=== PATIENT | female | born 1990 | race Caucasian/White ===

== ENCOUNTER 2023-04-07 13:16 | Outpatient (CLI) | payer OTHER, MEDICAID, SELFPAY | END 2023-04-07 13:17 | disposition home or self-care (01) | LOC: NFLDREF 04-11 12:10 | PROVIDERS: PCP Family Medicine; Referring Provider Family Medicine; Visit Provider Obstetrics & Gynecology | DX: Z32.00 Encounter for pregnancy test, result unknown (principal) | CPT/HCPCS: 84702 ==

== ENCOUNTER 2023-04-11 10:51 | Outpatient (CLI) | payer OTHER, MEDICAID, SELFPAY ==
--- NOTE | 2023-04-11 11:00 | CRLHL7_ITS ---
For Patients: As a result of the Century Cures Act, medical imaging exams and procedure reports are released immediately into your electronic medical record. You may view this report before your referring provider. If you have questions, please contact your health care provider. INDICATION: First trimester scan, establish dates. COMPARISON: None. TECHNIQUE: Real-time marinelli-scale imaging of the pelvis was performed. FINDINGS: Sonographic imaging demonstrates a single living intrauterine gestation. The embryo demonstrates a regular cardiac rate measuring 178 beats per minute. The embryo`s crown-rump length measurement of 2.8 cm corresponds to a gestational age of 9 weeks 4 days with a sonographic due date of 11/10/2023. There is a normal-appearing yolk sac. There are no gross abnormalities noted within the embryo at this early state of development. The gestational sac has a normal appearance. There is a perigestational hemorrhage superior to the gestational sac measuring 2.2 x 0.3 x 2.0 cm and inferior to the gestational sac measuring 0.6 x 1.5 x 1.9 cm. The amount of fluid within the sac appears appropriate for gestational age. The cervix is closed. The myometrium appears normal. The ovaries are of normal size. There are no suspicious fluid collections noted in the cul-de-sac. IMPRESSION: Single living intrauterine measuring 9 weeks 4 days and sonographic due date 11/10/2023. There are 2 crescentic subchorionic hemorrhages measuring 2.2 x 0.3 x 2.0 cm superior to the gestational sac and 0.6 x 1.5 x 1.9 cm inferior to the gestational sac. Dictated by Zay Drake MD @ 04/11/2023 2:45:05 PM (Electronically Signed)
== END 2023-04-11 10:52 | disposition home or self-care (01) ==
LOC: US 10:54
PROVIDERS: PCP Family Medicine; Visit Provider Obstetrics & Gynecology
DX: Z34.91 Encounter for supervision of normal pregnancy, unspecified, first trimester (principal); O20.9 Hemorrhage in early pregnancy, unspecified; Z3A.09 9 weeks gestation of pregnancy
CPT/HCPCS: 76801; 82565; 82570; 84156; 84450; 84460; 84520; 86592; 86703; 86704; 86706; 86762; 86787; 86803; 86850; 86900; 86901; 87086; 87340

== ENCOUNTER 2023-04-14 11:54 | Outpatient (CLI) | payer OTHER, MEDICAID, SELFPAY | END 2023-04-14 11:55 | disposition home or self-care (01) | LOC: NFLDREF 04-18 16:03 | PROVIDERS: PCP Family Medicine; Referring Provider Family Medicine; Visit Provider Obstetrics & Gynecology | DX: R35.0 Frequency of micturition (principal) | CPT/HCPCS: 87086 ==

== ENCOUNTER 2023-04-16 06:30 | Outpatient (CLI) | payer OTHER, MEDICAID, SELFPAY | END 2023-04-16 06:31 | disposition home or self-care (01) | LOC: NFLDREF 04-18 19:28 | PROVIDERS: PCP Family Medicine; Referring Provider Family Medicine; Visit Provider Obstetrics & Gynecology | DX: Z34.91 Encounter for supervision of normal pregnancy, unspecified, first trimester (principal); Z87.59 Personal history of other complications of pregnancy, childbirth and the puerperium | CPT/HCPCS: 82570; 84156 ==

== ENCOUNTER 2023-05-29 08:07 | Outpatient (CLI) | payer BC, MEDICAID, SELFPAY ==
--- NOTE | 2023-05-29 08:15 | CRLHL7_ITS ---
For Patients: As a result of the Century Cures Act, medical imaging exams and procedure reports are released immediately into your electronic medical record. You may view this report before your referring provider. If you have questions, please contact your health care provider. CLINICAL HISTORY: Proteinuria COMPARISON: none TECHNIQUE: Jones scale and color Doppler images were acquired of the kidneys and urinary bladder. FINDINGS: Sonographic images reveal a symmetric appearance of the kidneys. There is no evidence of hydronephrosis, mass or calculus. The right kidney measures 11.7cm in length and the left kidney measures 10.0cm in length. The renal cortex appears of normal thickness. Normal color Doppler flow to both kidneys. The urinary bladder appears normal. There is no evidence of bladder calculi or diverticula. IMPRESSION: Normal renal ultrasound. Dictated by Zay Drake MD @ 05/29/2023 11:04:24 AM (Electronically Signed)
== END 2023-05-29 08:08 | disposition home or self-care (01) ==
LOC: US 08:09
PROVIDERS: PCP Family Medicine; Visit Provider Internal Medicine Nephrology
DX: R80.9 Proteinuria, unspecified (principal)
CPT/HCPCS: 76775

== ENCOUNTER 2023-06-09 08:00 | Outpatient (CLI) | payer BC, SELFPAY ==
--- OUTSIDE RECORDS SUMMARY | 2023-06-13 10:45 | XMS_ITS | Clinical Summary ---
Author Name Unknown Organization [facility] Address [place], [place] [address] Care Team Providers Care Acrobatic Rigger Name Role Phone Jyoti Cope DO Primary Care Provider [phone] Allergies Active Allergy Reactions Criticality Noted Date Comments Sulfa (Sulfonamide Antibiotics) *Unknown Unknown 06/27 Medications Medication Sig Dispensed Refills Start Date End Date Status Fphkusbm-Ag-Vmj-Fe-FA tab tablet Take 1 Tablet by mouth once daily. 0 09/04/2022 Active Active Problems Problem Noted Date Diagnosed Date PCOS (polycystic ovarian syndrome) 12/25/2019 Immunizations Name Administration Dates Next Due DTP 05/30/1992,03/21/1992,01/18/1992 DTaP 11/01/1996, 3,05/30/1992,03/21/1992,01/17 HIB PRP-T (ActHIB,Hiberix) 02/19/1993,05/30/1992 ,03/21/1992,01/18/1992 HPV 9 (Gardasil 9) 11/22/2014 Hepatitis B (Peds) 02/19/1993,10/10/1992, 993 Hepatitis B, Unspecified 02/19/1993,10/10/1992,0 08/29/1992 Inactivated Polio Vaccine 11/01/1996,05/08/1993, 03/21/1992,01/18/1992 MMR 02/19/1993 Oral Polio Vaccine 11/01/1996,05/08/1993, 992,01/18/1992 Tdap 07/02/2021,11/22/2014 Tdap, Unspecified 11/01/1996,05/08/1993 Varicella Vaccine 11/12/1999 Family History Medical History Relation Name Comments Parkinsonism Father Alzheimer's disease Maternal Grandfather Alzheimer's disease Maternal Grandmother Alcoholism Paternal Grandfather Relation Name Status Comments Father Alive Maternal Grandfather Maternal Grandmother Mother Alive Paternal Grandfather brain b leed Paternal Grandmother Alive Social History Tobacco Use Types Packs/Day Years Used Date Smoking Tobacco: Former Cigarettes 0.3 1.8 0 11/23/2016 - 08/31/2018 Smokeless Tobacco: Never Tobacco Cessation:Counseling Given: Not Answered Alcohol Use Standard Drinks/Week Comments Yes 0 (1 standard drink = 0.6 oz pur e alcohol) occ PHQ-2 Answer Date Recorded PHQ-2 TOTAL SCORE 0 04/03/2022 Social Connections Answer Date Recorded Frequency of Communication with Friends and Fami ly Not on file 01/07/2023 Financial Resource Strain Answer Date R ecorded Difficulty of Paying Living Expenses 3 01/02/2022 Difficulty of Paying Living Expenses Not on file 01/02/2022 Food Insecurity Answer Date Recorded Worried About Running Out of Food in the Last Ye ar 1 01/02/2022 Transportation Needs Answer Date Record ed Lack of Transportation (Medical) 1 01/02/2022 Housing Stability Answer Date Recorded Unable to Pay for Housing in the Last Year 1 01/02/2022 Sex and Gender Information Value Date Recorded Sex Assigned at Female 01/02/2022 10:36 PM CDT Gender Identity Female 01/02/2022 10:36 PM CDT Sexual Orientation Straight 01/02/2022 10 :36 PM CDT Obstetrics History Para Term AB IAB SAB Ectopic Multiple Livin g Live Births 1 Date Outcome GA Total Labor Labor/2nd/3rd Weight Sex Delivery Anes PTL Renetta A1 A5 Name Cl in Last Filed Vital Signs Vital Sign Reading Time Taken Comments Blood Pressure 131/83 01/08/2023 9:48 AM CDT Pulse 85 01/08/2023 9:48 AM CDT Temperature 36.9 ??C (98.4 ??F) 12/16/2022 8:29 AM CD T Respiratory Rate 20 12/01/2018 12:03 PM CDT Oxygen Saturation 100% 01/08/2023 9:48 AM CDT Inhaled Oxygen Concentration - - Weight 85 kg (187 lb 8 oz) 01/08/2023 9:48 AM CD T Height 170 cm (5' 6.93) 12/15/2019 11:09 AM CDT Body Mass Index 29.43 12/15/2019 11:09 AM CDT Plan of Treatment Health Maintenance Due Date Last Done Comments COVID-19 vaccine series (#1) 05/17/1992 HIV for age 15-65 11/15/2006 Hepatitis C screening for age 18-79 11/15/2009 BMI (ht and wt on same day) for age 18+ 12/14/2020 12/15/2019, 03/12/2019, 12/01/2018, Additional history exists Pap test for age 21-65 03/12/2022 03/12/2019 Influenza for age 9-49 01/24/2023 Depression screening for age 12+ 04/03/2023 04/03/2022, 11/17/2019, 03/12/2019, Additional history exists Tetanus booster 07/02/2031 07/02/2021, 10/26, 11/01/1996, Additional history exists Tdap Completed 07/02/2021, 10/26, 11/01/1996, Additional history exists Pneumococcal series for age 6-64 Aged Out No longer eligible based on patient's age to complete this topic Care Teams Acrobatic Rigger Relationship Specialty Start Date End Date Jyoti Cope DO [address] [place] [address] PCP - General Family Practice 01/08/23
== END 2023-06-09 08:01 | disposition home or self-care (01) ==
LOC: NFLDREF 06-13 10:42
PROVIDERS: PCP Family Medicine; Referring Provider Family Medicine; Visit Provider Internal Medicine Nephrology
DX: Z34.82 Encounter for supervision of other normal pregnancy, second trimester (principal); R80.9 Proteinuria, unspecified
CPT/HCPCS: 82570; 84156

== ENCOUNTER 2023-06-18 08:12 | Outpatient (CLI) | payer BC, MEDICAID, SELFPAY ==
--- NOTE | 2023-06-18 08:15 | CRLHL7_ITS ---
For Patients: As a result of the Century Cures Act, medical imaging exams and procedure reports are released immediately into your electronic medical record. You may view this report before your referring provider. If you have questions, please contact your health care provider. INDICATION: 2nd trimester anatomical survey. TECHNIQUE: Ultrasound OB pelvis transabdominal. Real-time marinelli-scale imaging of the fetus was performed as well as color Doppler and spectral Doppler analysis of the umbilical artery. COMPARISON: Obstetric ultrasound on 04/11/2023 FINDINGS: Sonographic imaging demonstrates a single living intrauterine gestation. Fetus demonstrates a regular cardiac rate of 165 beats per minute. Fetus has a james breech orientation. The placenta lies anterior without evidence of placenta previa. Amniotic fluid volume appears within normal limits with single deepest pocket measurement of 2.7 centimeters. Biometry: Biparietal diameter: 3.9 centimeters consistent with 17 weeks and 6 days. Head circumference: 15.4 centimeters consistent with 18 weeks and 3 days. Abdominal circumference: 13.2 centimeters consistent with 18 weeks and 5 days. Femoral length: 2.8 centimeters consistent with 18 weeks and 3 days. The composite ultrasound gestational age is calculated at 18 weeks and 4 days is with an estimated sonographic due date of 11/15/2023. The weight is estimated at 246 grams, the <3rd percentile. Anatomical Survey: 4 chamber heart: Visualized. Stomach: Visualized. Kidneys: Visualized. Bladder: Visualized. Spine: Visualized. 4 extremities: Visualized. Cord insertion: Visualized. 3V cord: Visualized. Face: Visualized. Nose: Visualized. Lips: Visualized. Cerebellum: Visualized. Cisterna Magna: Visualized. Lateral ventricles: Visualized. Gender: Male Umbilical artery S/D ratio is 2.3 (normal). The cervix is closed and measures 6.2 centimeters in length. There is a suspected subserosal fibroid seen in the anterior mid uterus measuring approximately 1.4 centimeters. IMPRESSION: 1. Single viable intrauterine . 2. No intrinsic abnormalities noted on anatomic survey. 3. Estimated size of less than 3rd percentile, which is suggestive of growth restriction. Dictated by Jona Rothman MD @ 06/18/2023 10:05:35 AM (Electronically Signed)
== END 2023-06-18 08:13 | disposition home or self-care (01) ==
LOC: US 08:13
PROVIDERS: PCP Family Medicine; Visit Provider Obstetrics & Gynecology
DX: Z34.92 Encounter for supervision of normal pregnancy, unspecified, second trimester (principal); Z3A.18 18 weeks gestation of pregnancy
CPT/HCPCS: 76805; 76820

== ENCOUNTER 2023-07-15 16:09 | Inpatient (IN) | payer BC, MEDICAID, SELFPAY ==
--- OUTSIDE RECORDS SUMMARY | 2023-07-15 16:01 | XMS_ITS | Encounter Summary ---
Author Name Unknown Organization [facility] Address [address] [place] [id number] Care Team Providers Care Frame Builder Name Role Phone Lamine Pizarro MD Unavailable [phone] Raven Laguna MD Primary Care Provider [phone] Encounter Details Date Type Department Care Team (Latest Contact Info) Description 07/10/2023 Travel Social History Tobacco Use Types Packs/Day Years Used Date Smoking Tobacco: Never Assessed Adolescent Education Answer Date Record ed Getting School Help Needed Not on file 04/22 Estimated Date of Delivery Comme nts Yes 11/10/2023 Based on Ultraso und, RODGER changed on 06/24/[address] Odonnell d/t irregular menstural cycles Sex and Gender Information Value Date Recorded Sex Assigned at Female 06/19/2023 11:52 AM AQUATIC PHYSIOTHERAPIST Gender Identity Female 06/19/2023 11:52 AM AQUATIC PHYSIOTHERAPIST Sexual Orientation Straight 06/19/2023 11 :52 AM AQUATIC PHYSIOTHERAPIST documented as of this encounter Plan of Treatment Not on file documented as of this encounter Visit Diagnoses Not on filedocumented in this encounter Care Teams Frame Builder Relationship Specialty Start Date End Date Raven Laguna MD [facility] [address] [place] [address] PCP - General instrument engineer 04/23/23 Lamine Pizarro MD [address] [place] [address] Nephrology 04/23/23 documented as of this encounter
--- OUTSIDE RECORDS SUMMARY | 2023-07-15 16:01 | XMS_ITS | Clinical Summary ---
Author Name Unknown Organization [facility] Address [address] [place] [address]. [place] [address] Care Team Providers Care Public Opinion Survey Taker Name Role Phone Lamine Pizarro MD Unavailable [phone] Raven Laguna MD Primary Care Provider [phone] Encounters Date Type Department Care Team Description 07/15/2023 10:00 AM RETANNER Office Visit [facility] [place] [facility] [place] [address] [facility] [address] [place] [phone] Melo Odonnell MD demise, greater than 22 weeks, antepartum, single or unspecified fetus (Primary Dx) 07/15/2023 9:30 AM RETANNER Hospital Encounter [facility] [place] [facility] Medicine [place] [address] [place] [phone] Melo Odonnell MD Encounter for follow-up ultrasound of anatomy; growth restriction antepartum 07/15/2023 Travel 07/10/2023 Travel 06/24/2023 2:00 PM RETANNER Office Visit [facility] [place] [facility] Medicine [facility] [address] [place] [phone] Esme Stanford MD Jones, Cresta Wedel, MD growth restriction antepartum (Primary Dx); Encounter for follow-up ultrasound of anatomy 06/24/2023 1:30 PM RETANNER Office Visit [facility] [place] [facility] Medicine [facility] [address] [facility] [address] [place] [phone] Melo Odonnell MD Daykin, Emily C, GC Abnormal finding on ultrasound (Primary Dx) 06/24/2023 1:26 PM RETANNER - 06/24/2023 11:59 PM RETANNER Hospital Encounter [facility] Maternal Medicine [facility] [address] [facility] [address] [place] [phone] Esme Stanford MD Jones, Cresta Wedel, MD related condition, antepartum Discharge Disposition: Home or Self Care 06/24/2023 Orders Only [facility] Maternal Medicine [facility] [address] [facility] [address] [place] [address] Sobeida Donovan GC Abnormal finding on ultrasound (Primary Dx) 06/24/2023 Travel 06/20/2023 PRE VISIT [facility] [place] [facility] Medicine [place] [address] [facility] [address] [place] [phone] Silvia Narvaez RN Ultrasound ([id number]) 06/19/2023 Travel 06/19/2023 Transcribe Orders [facility] [place] [facility] Medicine [address] [place] [phone] Esme Stanford MD related condition, antepartum (Primary Dx) 06/18/2023 Medical Correspondence [facility] [address] [place] [address] Scan, Non-Provider 06/12/2023 PRE VISIT [facility] [address] [phone] Lamine Pizarro MD *-*INCOMING RECORDS*-* 04/22/2023 Transcribe Orders [facility] EXTERNAL DATA DEPARTMENT Raven Laguna MD Proteinuria (Primary Dx); Personal history of other complications of , childbirth and the puerperium from Last 3 Months Social History Tobacco Use Types Packs/Day Years Used Date Smoking Tobacco: Never Assessed Tobacco Cessation:Counseling Given: Not Answered Adolescent Education Answer Date Record ed Getting School Help Needed Not on file 04/22 Estimated Date of Delivery Comme nts Yes 11/10/2023 Based on Ultraso und, RODGER changed on 06/24/[address] Odonnell d/t irregular menstural cycles Sex and Gender Information Value Date Recorded Sex Assigned at Female 06/19/2023 11:52 AM RETANNER Gender Identity Female 06/19/2023 11:52 AM RETANNER Sexual Orientation Straight 06/19/2023 11 :52 AM RETANNER Last Filed Vital Signs Vital Sign Reading Time Taken Comments Blood Pressure 131/86 06/24/2023 2:51 PM RETANNER Pulse 106 06/24/2023 2:51 PM RETANNER Temperature - - Respiratory Rate - - Oxygen Saturation 100% 06/24/2023 2:51 PM RETANNER Inhaled Oxygen Concentration - - Weight - - Height - - Body Mass Index - - Plan of Treatment Health Maintenance Due Date Last Done Comments ADVANCE CARE PLANNING 1990 ANNUAL REVIEW OF HM ORDERS 1990 YEARLY PREVENTIVE VISIT 1990 COVID-19 Vaccine (#1) 05/17/1992 HIV SCREENING 11/15/2006 HEPATITIS C SCREENING 11/15/2009 PAP 11/15/2012 HPV IMMUNIZATION (2 - 3-dose series) 12/20/2014 11/22/2014 INFLUENZA VACCINE (#1) 2023 MATERNAL SCREENING DISCUSSION 04/14/2023 PHQ-2 (once per calendar year) 2023 OBGCT (OB) 07/21/2023 DTAP/TDAP/TD IMMUNIZATION (8 - Td or Tdap) 07/02/2031 07/02/2021, 11/22/2014, 11/01/1996, Additional history exists HEPATITIS B IMMUNIZATION Completed 993, 02/19/1993, 10/10/1992, Additional history exists IPV IMMUNIZATION Completed 11/01/1996, 01/1997, 05/08/1993, Additional history exists MENINGITIS IMMUNIZATION Aged Out No l onger eligible based on patient's age to complete this topic Pneumococcal Vaccine: Pediatrics (0 to 5 Years) and At-Risk Patients (6 to 64 Years) Aged Out No longer eligible based on patient's age to complete this topic RSV MONOCLONAL ANTIBODY Aged Out No l onger eligible based on patient's age to complete this topic RSV VACCINE ( & 60+) (No Doses Required) Completed Procedures Procedure Name Priority Date/Time Associated Diagnosis Comments [facility] US COMPREHENSIVE SINGLE F/U Routine 07/15/2023 10:14 AM RETANNER Encounter for follow-up ultrasound of anatomy growth restriction antepartum [facility] US COMPREHENSIVE SINGLE Routine 06/24/2023 2:22 PM RETANNER related condition, antepartum from Last 3 Months Results * [facility] US Comprehensive Single F/U (07/15/2023 10:14 AM RETANNER) Anatomical Region Laterality Modality Ultrasound 07/15/2023 9:45 AM RETANNER Impressions 07/15/2023 10:31 AM RETANNER IMPRESSION ----- 1. Morales intrauterine at 23w 1d gestational age here with new finding of demise 2. Growth parameters and estimated weight were consistent with 17 weeks gestation. 3. Transverse lie with normal amniotic fluid volume present. 4. Anterior placenta. 5. No evidence of soft tissue edema but the skull bones are slightly overlapping, likely associated with the demise. Unable to determine timing of loss based on US evaluation. Narrative 07/15/2023 10:31 AM RETANNER ?Comp Follow Up ----- Pat. Name: ETIENNE CAMARILLO ? Study Date: ??07/15/2023 9:45am Pat. NO: ??[id number] ?Referring ??MD: ESME RAMIREZ Site: [facility] ? [facility] Cooper: Lovely Cadetvis, [facility] : ??1990 ?Age: ?? 32 ----- INDICATION ----- Early Onset FGR on previous u/s DEMISE METHOD ----- Transabdominal ultrasound examination. View: Sufficient ----- Morales . Number of fetuses: 1 DATING ----- ? Date ?Details ?Gest. age ?RODGER LMP ?01/27/2023 ?Cycle: irregular, long cycles ? 24 w + 1 d ? 11/03/2023 Prior assessment ? 04/11/2023 ? GA: 9 w + 4 d ? 23 w + 1 d ? 11/10/2023 U/S ? 07/15/2023 ? based upon AC, BPD, Femur, HC ?17 w + 0 d ? 12/23/2023 Assigned dating ?Dating performed on 06/24/2023, based on the prior assessment (on 04/11/2023) ? 23 w + 1 d ? 11/10/2023 GENERAL EVALUATION ----- Cardiac activity absent. movements not visualized. Presentation transverse. Placenta Anterior. Umbilical cord previously studied. Amniotic fluid normal MVP. BIOMETRY ----- Main Biometry: BPD ?31.6 ?mm ? 15w 6d ?Hadlock OFD ?53.7 ?mm ? 17w 6d ?Nicolaides ?139.4 ?mm ?17w 2d ?Hadlock AC ?94.5 ?mm ? 15w 4d ? <1% ?Hadlock Femur ?29.9 ? mm ?19w 2d ?Hadlock Humerus ?27.3 ?mm ? 18w 5d ?Stephany Weight Calculation: EFW ? 190 ? g ? <1% ?Hadlock EFW (lb,oz) ? 0 lb 7 ?oz EFW by ?Krei ([id number]) ANATOMY ----- Gender: uncertain. MATERNAL STRUCTURES ----- Cervix ?Visualized ? Appearance: Appears Closed ? Approach - Transabdominal Right Ovary ?Not examined Left Ovary ?Not examined RECOMMENDATION ----- Findings reviewed with Etienne and her partner - this was a possibility but not anticipated by them or by our team. We have notified the primary OB team of Dr. Ray Garcia in [place]. We very briefly reviewed options for delivery including induction delivery locally vs. surgical delivery, which I am not sure if she would need to be referred to our [facility] [employer] colleagues in [place] for that procedure. They are leaning towards a timely induction delivery locally in [place] at this time. Dr. Ramirez is aware and will call the couple this afternoon to discuss next steps. We are willing to assist with a surgical referral as needed; patient is aware that would likely take a couple of days to arrange. I do recommend a pathologic examination of the fetus and placenta and made this recommendation to the patient as well. If this can include TORCH (transplacental infection) evaluation as well, this would be recommended - it would need to be coordinated with the local pathology team. I recommend maternal testing for antiphospholipid antibodies - ijyy-9-nncqomblajal antibodies, lupus anticoagulation and anticardiolipin antibodies. We are happy to see her back after her loss for review of pathology and lab results, to help guide care for any future pregnancies. Procedure Note Melo Odonnell MD - 07/15/2023 Comp Follow Up ----- Pat. Name: ETIENNE CAMARILLO Study Date: 07/15/2023 9:45am Pat. NO: [id number] Referring MD: ESME RAMIREZ Site: [facility]: Lovely Pen[address]za RD : 1990 Age: 32 ----- INDICATION ----- Early Onset FGR on previous u/s DEMISE METHOD ----- Transabdominal ultrasound examination. View: Sufficient ----- Morales . Number of fetuses: 1 DATING ----- DateDetailsGest. age RODGER LMP 01/27/2023ycle: irregular, long [id number] w + 1 d 11/03/2023 Prior assessment 04/11/2023 GA: 9 w +4 d23 w + 1 d 11/10/2023 U/S 07/15/2023ased upon AC, BPD, Femur, HC17 w + 0 d 12/23/2023 Assigned dating Dating performed on 06/24/2023, based onthe prior assessment (on 04/11/2023) 23 w + 1 11/10/2023 GENERAL EVALUATION ----- Cardiac activity absent. movements not visualized. Presentation transverse. Placenta Anterior. Umbilical cord previously studied. Amniotic fluid normal MVP. BIOMETRY ----- Main Biometry: BPD 31.6 mm15w 6d Hadlock OFD 53.7 mm17w 6d Nicolaides HC 139.4 mm17w 2d Hadlock AC 94.5 mm15w 4d <1% Hadlock Femur 29.9 mm19w 2d Hadlock Humerus 27.3 mm18w 5d Stephany Weight Calculation: EFW 190 g<1% Hadlock EFW (lb,oz) 0 lb 7 oz EFW by Hadlock ([id number]) ANATOMY ----- Gender: uncertain. MATERNAL STRUCTURES ----- Cervix Visualized Appearance: Appears Closed Approach - Transabdominal Right Ovary Not examined Left Ovary Not examined RECOMMENDATION ----- Findings reviewed with Etienne and her partner - this was a possibilitybut not anticipated by them or by our team. We have notified the primary OB team of Dr. Ray Garcia in [place].We very briefly reviewed options for delivery including induction deliverylocally vs. surgical delivery, which I am not sure if she would need to be referred to ourOb/Pedodontist colleagues in [place] for that procedure. They are leaningtowards a timely induction delivery locally in [place] at this time. Dr. Ramirez is awareand will call the couple this afternoon to discuss next steps. We arewilling to assist with a surgical referral as needed; patient is aware that would likely take a couple ofdays to arrange. I do recommend a pathologic examination of the fetus and placenta and madethis recommendation to the patient as well. If this can include TORCH(transplacental infection) evaluation as well, this would be recommended - it would needto be coordinated with the local pathology team. I recommend maternal testing for antiphospholipid antibodies -qyki-1-omsavbsargmv antibodies, lupus anticoagulation and anticardiolipinantibodies. We are happy to see her back after her loss for review of pathology andlab results, to help guide care for any future pregnancies. IMPRESSION ----- 1. Morales intrauterine at 23w 1d gestational age here withnew finding of demise 2. Growth parameters and estimated weight were consistent with 17weeks gestation. 3. Transverse lie with normal amniotic fluid volume present. 4. Anterior placenta. 5. No evidence of soft tissue edema but the skull bones areslightly overlapping, likely associated with the demise. Unable todetermine timing of loss based on US evaluation. Melo Odonnell MD [facility] US ORDERAB LES * [facility] US Comprehensive Single (06/24/2023 2:22 PM RETANNER) Anatomical Region Laterality Modality Ultrasound 06/24/2023 1:27 PM RETANNER Impressions 06/24/2023 4:31 PM RETANNER IMPRESSION ----- 1. Morales intrauterine at 20w 1d gestational age by 9 week 4 day US (1 week different from LMP with reported irregular long cycles) here for evaluation of anatomy and growth. 2. No anomalies commonly detected by ultrasound or soft markers of aneuploidy were identified in the detailed anatomic survey within the limits of ultrasound, however some views were suboptimal, as described above. 3. Growth parameters and estimated weight were consistent with early onset growth restriction, and EFW 3%. 4. The amniotic fluid volume appeared normal with an MVP of > 2 cm. 5. On transabdominal imaging the cervix appears long and closed. 6. Umbilical artery Doppler flow was within normal limits. Narrative 06/24/2023 4:31 PM RETANNER ?Comprehensive ----- Pat. Name: ETIENNE CAMARILLO ? Study Date: ??06/24/2023 1:27pm Pat. NO: ??[id number] ?Referring ??: ESME RAMIREZ Site: ??[facility] ? [facility]: Soledad Alejandro RDMS : ??1990 ?Age: ?? 32 ----- INDICATION ----- Early Onset FGR - RODGER changed today. Chronic Hypertension - no medications. History of Preeclampsia with delivery. METHOD ----- Transabdominal ultrasound examination. View: Sufficient ----- [place]ales . Number of fetuses: 1 DATING ----- ? Date ?Details ?Gest. age ?RODGER LMP ?01/27/2023 ?Cycle: irregular, long cycles ? 21 w + 1 d ? 11/03/2023 Prior assessment ? 04/11/2023 ? GA: 9 w + 4 d ? 20 w + 1 d ? 11/10/2023 U/S ? 06/24/2023 ? based upon AC, BPD, Femur, HC ?18 w + 3 d ? 11/22/2023 Assigned dating ?Dating performed on 06/24/2023, based on the prior assessment (on 04/11/2023) ? 20 w + 1 d ? 11/10/2023 GENERAL EVALUATION ----- Cardiac activity present. FHR 159 bpm. movements present. Presentation cephalic. Placenta anterior, no previa > 2 cm from internal os . Umbilical cord Cord vessels: 3 vessel cord. Insertion site: normal . Amniotic fluid Amount of AF: Low. MVP 2.4 cm. BIOMETRY ----- Main Biometry: BPD ?38.4 ?mm ? 17w 5d ?Hadlock OFD ?55.4 ?mm ? 18w 2d ?Nicolaides HC ?150.7 ?mm ?18w 1d ?Hadlock Cerebellum tr ?19.6 ? mm ?18w 6d ?Nicolaides AC ?132.3 ?mm ?18w 5d ?8% ?Hadlock Femur ?29.4 ? mm ?19w 0d ?Hadlock Humerus ?28.4 ?mm ? 19w 1d ?Stephany Weight Calculation: EFW ? 257 ? g ? 3% ?Hadlock EFW (lb,oz) ? 0 lb 9 ?oz EFW by ?Hadlock ([id number]) Head / Face / Neck Biometry: Assistant Public Defender ? 4.5 ? mm CM ?4.1 ? mm Nasal bone ? 5.9 ? mm Extremities / Bony Struc Biometry: Rt Humerus ?28.4 ? mm ?19w 1d ?Stephany Rt Radius ? 24.0 ? mm ?14% ?Becker Rt Ulna ?24.4 ?mm ? 5% ?Becker Lt Humerus ?25.5 ?mm ? 18w 0d ?Stephany Lt Radius ? 22.2 ?mm ? 5% ?Becker Lt Ulna ? 25.5 ? mm ?11% ?Becker Rt Femur ? 29.4 ?mm ? 19w 0d ? Hadlock Rt Tibia ?24.9 ?mm ? 20% ?Becker Rt Fibula ?25.2 ?mm ? 22% ?Becker Lt Femur ?27.9 ?mm ? 18w 4d ?Hadlock Lt Tibia ?25.5 ?mm ? 26% ? Becker Lt Fibula ?24.9 ?mm ? 20% ? Becker ANATOMY ----- The following structures appear abnormal: Abdomen ? Bowel. Small bowel: echogenic bowel. The following structures appear normal: Head / Neck ? Cranium. Head size. Head shape. Lateral ventricles. Choroid plexus. Midline falx. Cavum septi pellucidi. Cerebellum. Cisterna magna. ? Parenchyma. Thalami. Vermis. ? Neck. Face ? Profile. Nose. Maxilla. Mandible. Orbits. Lens. Heart / Thorax ?Situs. Bicaval view. Superior vena cava. Inferior vena cava. 3-vessel view. 0-tkxkfi-amdpkkr view. Cardiac position. Cardiac size. Cardiac ? rhythm. ? Right lung. Left lung. Abdomen ? Stomach. Kidneys. Bladder. Liver. Spine ?Cervical spine. Thoracic spine. Lumbar spine. Sacral spine. Extremities / Skeleton ?Right arm. Left arm. Right leg. Right foot. Left leg. Left foot. The following structures could not be adequately visualized: Heart / Thorax ?4-chamber view. RVOT view. LVOT view. ? Diaphragm. Abdomen ? Abdominal wall. Cord insertion. Extremities / Skeleton ?Right hand. Left hand. The following structures could not be visualized: Face ? Lips. Heart / Thorax ?Aortic arch view. Ductal arch view. Abdomen ? Genitals. Gender: uncertain, genitalia not seen today . DOPPLER ----- Umbilical Artery: PI ?0.77 ?<1% ? Audra HR ?162 ? bpm MATERNAL STRUCTURES ----- Cervix ?Visualized ? Appearance: Appears Closed ? Approach - Transabdominal: Cervical length 60.5 mm Right Ovary ?Visualized Left Ovary ?Visualized RECOMMENDATION ----- Thank-you for referring your patient for ultrasound assessment. I discussed the findings on today's ultrasound with the patient and her partner. I reviewed the limitations of ultrasound both in detecting aneuploidy and structural abnormalities. Ultrasound, when views completed, can routinely detect 80-90% of structural abnormalities. We discussed our recommendation to utilize her US dating after discussion her long irregular menstrual cycles with her today. Recommended RODGER of 11/10/2023 was used today The findings on today's ultrasound are consistent with early onset growth restriction (FGR). We reviewed that we consider a to be affected by FGR when the overall EFW is <10th% or if the abdominal circumference (AC) is < 10th% as they have been found to be equally predictive of SGA. We discussed the potential etiologies of FGR including incorrect dating, constitutional, infectious etiologies (specifically CMV), genetic and structural abnormalities as well as placental and umbilical cord abnormalities. Her dating was reviewed and a change was recommended today. She has not had genetic screening, which was reviewed and recommended today - she opted to think about it and will discuss further with our genetic counseling team at her follow up [facility] visit. She has chronic HTN not on medication and takes her BP every day - today it is 131/86 but was lower at home. She has mild chronic kidney disease manifested by proteinuria in early (PCR 0.8 in March 2023) and is followed by nephrology -they plan to start her on BP medication if her BP increases and she is in touch with them regularly. There is a strong family history of preeclampsia. She denies experiencing any viral symptoms this . We reviewed the possible/recommended work up for FGR. She will consider genetic screening at her next visit here but is not interested in amniocentesis. CMV serologies are not recommended in the absence of risk factors/ultrasound findings but CMV PCR could be sent if amniocentesis is pursued. Additionally, if a patient delivers at <34 weeks for placental insufficiency, including FGR, testing for antiphospholipid antibody syndrome is recommended with beta 2 glycoprotein IgG & IgM, cardiolipin antibody IgG & IgM and lupus anticoagulant. Lastly, we reviewed that regardless of the etiology of FGR, we recommend additional monitoring due to the increased risk for stillbirth and that the ultimate goal of management rests on balancing the risk of stillbirth with the risks of prematurity. The recommended surveillance and management of pregnancies complicated by FGR includes serial assessment of growth (every 3 weeks) in addition to weekly UA Dopplers and surveillance. Timing of delivery will depend on Doppler findings, amniotic fluid, monitoring, and interval growth; we will make specific recommendations as the progresses. We reviewed kick counts and calling guidelines. Given her early gestational age, we plan for her to return to [facility] in 3 weeks, at which time we will initiate CTG if FGR is persistent. She will continue to watch her BP, and any new symptoms, very closely. They are planning on driving to [place] to see family next week, and she has a plan to stay in communication with her primary medical teams while she is there. She will check her BP daily there, and has information to go to a local hospital if needed. We discussed hydration and frequent stops for ambulation along the drive. Follow-up is scheduled here in three weeks as recommended above. Return to primary provider for continued care. If you have questions regarding today's evaluation or if we can be of further service, please contact the [facility]. anomalies may be present but not detected I spent a total of 45 minutes on the date of this encounter including preparing to see the patient (reviewing medical records/tests), counseling and discussing the plan of care, documenting the visit in the electronic medical record, and communicating with other health chronic care nurse and/or care coordination. Procedure Note Melo Odonnell MD - 06/24/2023 Comprehensive ----- Pat. Name: ETIENNE CAMARILLO Study Date: 06/24/2023 1:27pm Pat. NO: [id number] Referring MD: ESME RAMIREZ Site: [facility]: Soledad Alejandro RDMS : 1990 Age: 32 ----- INDICATION ----- Early Onset FGR - RODGER changed today. Chronic Hypertension - no medications. History of Preeclampsia with delivery. METHOD ----- Transabdominal ultrasound examination. View: Sufficient ----- Morales . Number of fetuses: 1 DATING ----- DateDetailsGest. age RODGER LMP 01/27/2023ycle: irregular, long [id number] w + 1 d 11/03/2023 Prior assessment 04/11/2023 GA: 9 w +4 d20 w + 1 d 11/10/2023 U/S 06/24/2023ased upon AC, BPD, Femur, HC18 w + 3 d 11/22/2023 Assigned dating Dating performed on 06/24/2023, based onthe prior assessment (on 04/11/2023) 20 w + 1 11/10/2023 GENERAL EVALUATION ----- Cardiac activity present. FHR 159 bpm. movements present. Presentation cephalic. Placenta anterior, no previa > 2 cm from internal os . Umbilical cord Cord vessels: 3 vessel cord. Insertion site: normal . Amniotic fluid Amount of AF: Low. MVP 2.4 cm. BIOMETRY ----- Main Biometry: BPD 38.4 mm17w 5d Hadlock OFD 55.4 mm18w 2d Nicolaides HC 150.7 mm18w 1d Hadlock Cerebellum tr 19.6 mm18w 6d Nicolaides AC 132.3 mm18w 5d 8% Hadlock Femur 29.4 mm19w 0d Hadlock Humerus 28.4 mm19w 1d Stephany Weight Calculation: EFW 257 g3% Hadlock EFW (lb,oz) 0 lb 9 oz EFW by Hadlock ([id number]) Head / Face / Neck Biometry: Assistant Public Defender 4.5 mm CM 4.1 mm Nasal bone 5.9 mm Extremities / Bony Struc Biometry: Rt Humerus 28.4 mm19w 1d Stephany Rt Radius 24.0 mm14% Becker Rt Ulna 24.4 mm5% Becker Lt Humerus 25.5 mm18w 0d Stephany Lt Radius 22.2 mm5% Becker Lt Ulna 25.5 mm11% Becker Rt Femur 29.4 mm19w 0d Hadlock Rt Tibia 24.9 mm20% Becker Rt Fibula 25.2 mm22% Becker Lt Femur 27.9 mm18w 4d Hadlock Lt Tibia 25.5 mm26% Becker Lt Fibula 24.9 mm20% Becker ANATOMY ----- The following structures appear abnormal: Abdomen Bowel. Small bowel: echogenic bowel. The following structures appear normal: Head / Neck Cranium. Head size. Head shape.Lateral ventricles. Choroid plexus. Midline falx. Cavum septi pellucidi.Cerebellum. Cisterna magna. Parenchyma. Thalami. Vermis. Neck. Face Profile. Nose. Maxilla. Mandible.Orbits. Lens. Heart / Thorax Situs. Bicaval view. Superior venacava. Inferior vena cava. 3- vessel view. 7-tuvrpx-dveiyue view. Cardiacposition. Cardiac size. Cardiac rhythm. Right lung. Left lung. Abdomen Stomach. Kidneys. Bladder. Liver. Spine Cervical spine. Thoracic spine.Lumbar spine. Sacral spine. Extremities / Skeleton Right arm. Left arm. Right leg. Rightfoot. Left leg. Left foot. The following structures could not be adequately visualized: Heart / Thorax 4-chamber view. RVOT view. LVOTview. Diaphragm. Abdomen Abdominal wall. Cord insertion. Extremities / Skeleton Right hand. Left hand. The following structures could not be visualized: Face Lips. Heart / Thorax Aortic arch view. Ductal arch view. Abdomen Genitals. Gender: uncertain, genitalia not seen today . DOPPLER ----- Umbilical Artery: PI 0.77<1% Audra HR 162 bpm MATERNAL STRUCTURES ----- Cervix Visualized Appearance: Appears Closed Approach - Transabdominal:Cervical length 60.5 mm Right Ovary Visualized Left Ovary Visualized RECOMMENDATION ----- Thank-you for referring your patient for ultrasound assessment. I discussed the findings on today's ultrasound with the patient and herpartner. I reviewed the limitations of ultrasound both in detectinganeuploidy and structural abnormalities. Ultrasound, when views completed, can routinely fthbwo08-60% of structural abnormalities. We discussed our recommendation toutilize her US dating after discussion her long irregular menstrual cycles with her today. Recommended RODGER of 11/10/2023 was used today The findings on today's ultrasound are consistent with early onset fetalgrowth restriction (FGR). We reviewed that we consider a to beaffected by FGR when the overall EFW is <10th% or if the abdominal circumference (AC) is < 10th% asthey have been found to be equally predictive of SGA. We discussed thepotential etiologies of FGR including incorrect dating, constitutional, infectious etiologies(specifically CMV), genetic and structural abnormalities as well asplacental and umbilical cord abnormalities. Her dating was reviewed and a change was recommended today. She has nothad genetic screening, which was reviewed and recommended today - sheopted to think about it and will discuss further with our genetic counseling team at herfollow up [facility] visit. She has chronic HTN not on medication and takes herBP every day - today it is 131/86 but was lower at home. She has mild chronic kidney diseasemanifested by proteinuria in early (PCR 0.8 in March 2023)and is followed by nephrology -they plan to start her on BP medication if her BP increasesand she is in touch with them regularly. There is a strong family historyof preeclampsia. She denies experiencing any viral symptoms this . We reviewed the possible/recommended work up for FGR. She will considergenetic screening at her next visit here but is not interested inamniocentesis. CMV serologies are not recommended in the absence of risk factors/ultrasound findings butCMV PCR could be sent if amniocentesis is pursued. Additionally, if apatient delivers at <34 weeks for placental insufficiency, including FGR, testing forantiphospholipid antibody syndrome is recommended with beta 2 glycoproteinIgG & IgM, cardiolipin antibody IgG & IgM and lupus anticoagulant. Lastly, we reviewed that regardless of the etiology of FGR, we recommendadditional monitoring due to the increased risk for stillbirth and thatthe ultimate goal of management rests on balancing the risk of stillbirth with the risks ofprematurity. The recommended surveillance and management of pregnanciescomplicated by FGR includes serial assessment of growth (every 3 weeks) in addition toweekly UA Dopplers and surveillance. Timing of delivery willdepend on Doppler findings, amniotic fluid, monitoring, and interval growth; we will makespecific recommendations as the progresses. We reviewed fetalkick counts and calling guidelines. Given her early gestational age, we plan for her to return to [facility] in 3weeks, at which time we will initiate CTG if FGR is persistent. Anahy continue to watch her BP, and any new symptoms, very closely. They are planning on driving to [facility] see family next week, and she has a plan to stay in communication withher primary medical teams while she is there. She will check her BP daily there, and hasinformation to go to a local hospital if needed. We discussed hydrationand frequent stops for ambulation along the drive. Follow-up is scheduled here in three weeks as recommended above. Return to primary provider for continued care. If you have questions regarding today's evaluation or if we can be offurther service, please contact the [facility]. anomalies may be present but not detected I spent a total of 45 minutes on the date of this encounter includingpreparing to see the patient (reviewing medical records/tests), counselingand discussing the plan of care, documenting the visit in the electronic medical record, andcommunicating with other health chronic care nurse and/or carecoordination. IMPRESSION ----- 1. Morales intrauterine at 20w 1d gestational age by 9 week 4day US (1 week different from LMP with reported irregular long cycles)here for evaluation of anatomy and growth. 2. No anomalies commonly detected by ultrasound or soft markers ofaneuploidy were identified in the detailed anatomic survey withinthe limits of ultrasound, however some views were suboptimal, as described above. 3. Growth parameters and estimated weight were consistent with earlyonset growth restriction, and EFW 3%. 4. The amniotic fluid volume appeared normal with an MVP of > 2 cm. 5. On transabdominal imaging the cervix appears long and closed. 6. Umbilical artery Doppler flow was within normal limits. Esme Ramirez MD IMG MFM US O RDERABLES from Last 3 Months Care Teams Public Opinion Survey Taker Relationship Specialty Start Date End Date Raven Laguna MD [facility] [address] [place] [address] PCP - General inserting operator 04/23/23 Lamine Pizarro MD [address] [place] [address] Nephrology 04/23/23
--- OUTSIDE RECORDS SUMMARY | 2023-07-15 16:01 | XMS_ITS | Encounter Summary ---
Author Name Unknown Organization [facility] Address [address] [place] [address]. [place] [address] Care Team Providers Care Peanut Separator Name Role Phone Lamine Pizarro MD Unavailable Raven Laguna MD Primary Care Provider [phone] Reason for Referral * Consultation (Routine: Next available opening) - Pending Review Specialty Diagnoses / Procedures Referred By Kevin montalvo Referred To Contact Diagnoses Abnormal finding on ultrasound Melo Odonnell MD [address] [facility] [address] [place] [address] Referral ID Status Reason Start Date Expiration Date V isits Requested Visits Authorized [id number] Pending Review 06/24/2023 06/23/2024 1 1 WELL CABLE TOOL OPERATOR Encounter Details Date Type Department Care Team (Late st Contact Info) Description 06/24/2023 Orders Only [facility] [place] [address] [place] [phone] Sobeida Donovan GC [address] [facility] [address] [place] [address] Abnormal finding on ultrasound (Primary Dx) Social History Tobacco Use Types Packs/Day Years [...] Sex Assigned at Female 06/19/2023 11:52 AM OIL WELL CABLE TOOL OPERATOR Gender Identity Female 06/19/2023 11:52 AM OIL WELL CABLE TOOL OPERATOR Sexual Orientation Straight 06/19/2023 11 :52 AM OIL WELL CABLE TOOL OPERATOR documented as of this encounter Plan of Treatment Scheduled Referrals Name Type Priority Associated Diagnoses Orde r Schedule MFM Genetic Counseling Referral Routine: Next available opening Abnormal finding on ultrasound Expected: 06/24/2023 (Approximate), Expires: 06/24/2024 documented as of this encounter Visit Diagnoses Diagnosis Abnormal finding on ultrasound- Primary Other nonspecific (abnormal) findings on radiological and other examinations of body structure documented in this encounter Care Teams Peanut Separator Relationship Specialty Start Date End Date Raven Laguna MD [address] [address] PCP - General broiler chef or cook 04/23/23 Lamine Pizarro MD [address] [place] [address] Nephrology 04/23/23 documented as of this encounter
--- OUTSIDE RECORDS SUMMARY | 2023-07-15 16:01 | XMS_ITS | Referral Summary ---
Author Name Unknown Organization [facility] Address [address] [place] [address] Care Team Providers Care Produce Laborer Name Role Phone Lamine Pizarro MD Unavailable [phone] Raven Laguna MD Primary Care Provider [phone] Encounters Date Type Department Care Team Description 07/15/2023 Travel 07/15/2023 10:00 AM FIELD MARKETING DIRECTOR Office Visit [facility] Medicine [place] [address] [place] [phone] Melo Odonnell MD demise, greater than 22 weeks, antepartum, single or unspecified fetus (Primary Dx) 07/15/2023 9:30 AM FIELD MARKETING DIRECTOR Hospital Encounter [facility] [place] [address] [place] [phone] Melo Odonnell MD Encounter for follow-up ultrasound of anatomy; growth restriction antepartum 07/10/2023 Travel 06/24/2023 1:30 PM FIELD MARKETING DIRECTOR Office Visit [facility] [place] [address] [place] [phone] Melo Odonnell MD Daykin, Emily C, GC Abnormal finding on ultrasound (Primary Dx) 06/24/2023 Orders Only [facility] Medicine [place] [address] [place] [phone] Sobeida Busby GC Abnormal finding on ultrasound (Primary Dx) 06/24/2023 Travel 06/24/2023 2:00 PM FIELD MARKETING DIRECTOR Office Visit [facility] [place] [address] [place] [phone] Esme Stanford MD Jones, Melo Saunders MD growth restriction antepartum (Primary Dx); Encounter for follow-up ultrasound of anatomy 06/24/2023 1:26 PM FIELD MARKETING DIRECTOR - 06/24/2023 11:59 PM FIELD MARKETING DIRECTOR Hospital Encounter [facility] Medicine [facility] [address] [place] [phone] Esme Stanford MD Jones, Melo Saunders MD related condition, antepartum Discharge Disposition: Home or Self Care 06/20/2023 PRE VISIT [facility] [place] [address] [place] [phone] Silvia Narvaez RN Ultrasound ([id number]) 06/19/2023 Travel 06/19/2023 Transcribe Orders [address] [phone] Esme Stanford MD related condition, antepartum (Primary Dx) 06/18/2023 Medical Correspondence [facility] [place] [address] Scan, Non-Provider 06/12/2023 PRE VISIT [facility] [address] [address] Lamine Pizarro MD *-*INCOMING RECORDS*-* 04/22/2023 Transcribe Orders [facility] EXTERNAL DATA DEPARTMENT Raven Laguna MD Proteinuria [...] Sex Assigned at Female 06/19/2023 11:52 AM FIELD MARKETING DIRECTOR Gender Identity Female 06/19/2023 11:52 AM FIELD MARKETING DIRECTOR Sexual Orientation Straight 06/19/2023 11 :52 AM FIELD MARKETING DIRECTOR Last Filed Vital Signs Vital Sign Reading Time Taken Comments Blood Pressure 131/86 06/24/2023 2:51 PM FIELD MARKETING DIRECTOR Pulse 106 06/24/2023 2:51 PM FIELD MARKETING DIRECTOR Temperature - - Respiratory Rate - - Oxygen Saturation 100% 06/24/2023 2:51 PM FIELD MARKETING DIRECTOR Inhaled Oxygen Concentration - - Weight - - Height - - Body Mass Index - - Plan of Treatment Not on file Procedures Procedure Name Priority Date/Time Associated Diagnosis Comments [facility] US COMPREHENSIVE SINGLE F/U Routine 07/15/2023 10:14 AM FIELD MARKETING DIRECTOR Encounter for follow-up ultrasound of anatomy growth restriction antepartum [facility] US COMPREHENSIVE SINGLE Routine 06/24/2023 2:22 PM FIELD MARKETING DIRECTOR related condition, antepartum from Last 3 Months Results * [facility] US Comprehensive Single F/U (07/15/2023 10:14 AM FIELD MARKETING DIRECTOR) Anatomical Region Laterality Modality Ultrasound 07/15/2023 9:45 AM FIELD MARKETING DIRECTOR Impressions 07/15/2023 10:31 AM FIELD MARKETING DIRECTOR IMPRESSION ----- 1. Morales intrauterine at 23w [...] on US evaluation. Narrative 07/15/2023 10:31 AM FIELD MARKETING DIRECTOR ?Comp Follow Up ----- Pat. Name: ETIENNE CAMARILLO ? Study Date: ??07/15/2023 9:45am Pat. NO: ??[id number] ?Referring ??MD: ESME RAMIREZ Site: ??[facility] ? Animal Groomer: Lovely Penaloza RDMS : ??1990 ?Age: ?? 32 ----- [...] OFD ?53.7 ?mm ? 17w 6d ?Nicolaides HC ?139.4 ?mm ?17w 2d ?Hadlock AC ?94.5 ?mm ? 15w 4d ? <1% ?Hadlock Femur ?29.9 ? mm ?19w 2d ?Hadlock Humerus ?27.3 ?mm ? 18w 5d ?Stephany Weight Calculation: EFW ? 190 ? g ? <1% ?Hadlock EFW (lb,oz) ? 0 lb 7 ?oz EFW by ?Hadlock ([id number]) ANATOMY ----- Gender: uncertain. MATERNAL STRUCTURES ----- Cervix ?Visualized ? Appearance: Appears Closed ? Approach - Transabdominal Right Ovary ?Not examined Left Ovary ?Not examined RECOMMENDATION ----- Findings reviewed with Etienne and her partner - this was a possibility but not anticipated by them or by our team. We have notified the primary OB team of Dr. Ray Garcia in [place]. We very briefly reviewed options for delivery including induction delivery locally vs. surgical delivery, which I am not sure if she would need to be referred to our [facility] colleagues in [place] for that procedure. They are leaning towards a timely induction delivery locally in [place] at this time. Dr. Ramirez is aware [...] recommend maternal testing for antiphospholipid antibodies - qibk-2-jiihtcjvkrvi antibodies, lupus anticoagulation and anticardiolipin antibodies. We are happy to see her back after her loss for review of pathology and lab results, to help guide care for any future pregnancies. Procedure Note Melo Odonnell MD - 07/15/2023 Comp Follow Up ----- Pat. Name: ETIENNE CAMARILLO Study Date: 07/15/2023 9:45am Pat. NO: [id number] Referring MD: ESEM RAMIREZ Site: [facility] Animal Groomer: Lovely Penaloza RDMS : 1990 Age: 32 ----- INDICATION ----- Early Onset FGR on previous u/s DEMISE METHOD ----- Transabdominal ultrasound examination. View: Sufficient ----- Morales . Number of fetuses: 1 DATING ----- DateDetailsGest. age RODGER LMP 01/27/2023ycle: irregular, long [id number] w + 1 d 11/03/2023 Prior assessment [...] 0 lb 7 oz EFW by Hadlock ([id number]) ANATOMY ----- Gender: uncertain. MATERNAL STRUCTURES ----- Cervix Visualized Appearance: Appears Closed Approach - Transabdominal Right Ovary Not examined Left Ovary Not examined RECOMMENDATION ----- Findings reviewed with Etienne and her partner - this was a possibilitybut not anticipated by them or by our team. We have notified the primary OB team of Dr. Ray Garcia in [place].We very briefly reviewed options for delivery including induction deliverylocally vs. surgical delivery, which I am not sure if she would need to be referred to ourOb/Assistant Softball Coach colleagues in [place] for that procedure. They are leaningtowards a timely induction delivery locally in [place] at this time. Dr. Ramirez is awareand [...] I recommend maternal testing for antiphospholipid antibodies -ynvz-1-pdevcqfvrqgp antibodies, lupus anticoagulation and anticardiolipinantibodies. We are [...] based on US evaluation. Melo Odonnell MD G [facility] US ORDERAB LES * [facility] US Comprehensive Single (06/24/2023 2:22 PM FIELD MARKETING DIRECTOR) Anatomical Region Laterality Modality Ultrasound 06/24/2023 1:27 PM FIELD MARKETING DIRECTOR Impressions 06/24/2023 4:31 PM FIELD MARKETING DIRECTOR IMPRESSION ----- 1. Morales intrauterine at 20w [...] within normal limits. Narrative 06/24/2023 4:31 PM FIELD MARKETING DIRECTOR ?Comprehensive ----- Pat. Name: ETIENNE CAMARILLO ? Study Date: ??06/24/2023 1:27pm Pat. NO: ??[id number] ?Referring ??MD: ESME RAMIREZ Site: ??[facility] ? Animal Groomer: Soledad Alejandro [facility] : ??1990 ?Age: ?? 32 ----- INDICATION [...] Biometry: BPD ?38.4 ?mm ? 17w 5d ?Keri FAIRBANKS ?55.4 ?mm ? 18w 2d ?Nicolaides HC ?150.7 ?mm ?18w 1d ?Hadlock Cerebellum tr ?19.6 ? mm ?18w 6d ?Nicolaides AC ?132.3 ?mm ?18w 5d ?8% ?Hadlock Femur ?29.4 ? mm ?19w 0d ?Hadlock Humerus ?28.4 ?mm ? 19w 1d ?Stephany Weight Calculation: EFW ? 257 ? g ? 3% ?Hadlock EFW (lb,oz) ? 0 lb 9 ?oz EFW by ?Hadlock ([id number]) Head / Face / Neck Biometry: Public Address System Mechanic ? 4.5 ? mm CM ?4.1 ? [...] Lt Fibula ?24.9 ?mm ? 20% ? Eugenio ANATOMY ----- The following structures appear abnormal: [...] vena cava. Inferior vena cava. 3-vessel view. 5-kwxxjs-lpxylim view. Cardiac position. Cardiac size. Cardiac ? [...] genetic counseling team at her follow up [facility] visit. She has chronic HTN not [...] we plan for her to return to [facility] in 3 weeks, at which time we will initiate CTG if FGR is persistent. She will continue to watch her BP, and any new symptoms, very closely. They are planning on driving to [place] to see family next week, and she [...] medical record, and communicating with other health career developer and/or care coordination. Procedure Note Melo Odonnell MD - 06/24/2023 Comprehensive ----- Pat. Name: ETIENNE CAMARILLO Study Date: 06/24/2023 1:27pm Pat. NO: [id number] Referring MD: ESME RAMIREZ Site: [facility] Animal Groomer: Soledad Alejandro RDMS : 1990 Age: 32 ----- INDICATION ----- Early Onset FGR - RODGER changed today. Chronic Hypertension - no medications. History of Preeclampsia with delivery. METHOD ----- Transabdominal ultrasound examination. View: Sufficient ----- Morales . Number of fetuses: 1 DATING ----- DateDetailsGest. age RODGER LMP 01/27/2023ycle: irregular, long w + 1 d 11/03/2023 Prior assessment [...] 0 lb 9 oz EFW by Hadlock ([id number]) Head / Face / Neck Biometry: Public Address System Mechanic 4.5 mm CM 4.1 mm Nasal bone [...] venacava. Inferior vena cava. 3- vessel view. 9-xwtgot-sazgsqp view. Cardiacposition. Cardiac size. Cardiac rhythm. Right [...] abnormalities. Ultrasound, when views completed, can routinely -47% of structural abnormalities. We discussed our recommendation [...] our genetic counseling team at herfollow up [facility] visit. She has chronic HTN not [...] we plan for her to return to [facility] in 3weeks, at which time we will initiate CTG if FGR is persistent. Anahy continue to watch her BP, and any new symptoms, very closely. They are planning on driving to [facility] see family next week, and she has [...] electronic medical record, andcommunicating with other health career developer and/or carecoordination. IMPRESSION ----- 1. Morales intrauterine [...] was within normal limits. Esme Ramirez MD [facility] US O RDERABLES from Last 3 Months Care Teams Produce Laborer Relationship Specialty Start Date End Date Raven Laguna MD [facility] [address] [place] [address] PCP - General image editor 04/23/23 Lamine Pizarro MD [address] [place] [address] Nephrology 04/23/23
--- OUTSIDE RECORDS SUMMARY | 2023-07-15 16:01 | XMS_ITS | Encounter Summary ---
Author Name Unknown Organization [facility] Address [address] [place] [address] Care Team Providers Care Enrollment Counselor Name Role Phone Lamine Pizarro MD Unavailable [phone] Raven Laguna MD Primary Care Provider [phone] Encounter Details Date Type Department Care Team (Latest Contact Info) Description 07/15/2023 Travel Social History Tobacco Use Types Packs/Day [...] Sex Assigned at Female 06/19/2023 11:52 AM TOP KNITTER Gender Identity Female 06/19/2023 11:52 AM TOP KNITTER Sexual Orientation Straight 06/19/2023 11 :52 AM TOP KNITTER documented as of this encounter Plan of Treatment Not on file documented as of this encounter Visit Diagnoses Not on filedocumented in this encounter Care Teams Enrollment Counselor Relationship Specialty Start Date End Date Raven Laguna MD [facility] [address] [place] [address] PCP - General teacher's assistant 04/23/23 Lamine Pizarro MD [address] [place] [address] Nephrology 04/23/23 documented as of this encounter
--- OUTSIDE RECORDS SUMMARY | 2023-07-15 16:01 | XMS_ITS | Encounter Summary ---
Author Name Unknown Organization [place] Address [address] [place] [address] Care Team Providers Care Bleach Supervisor Name Role Phone Lamine Pizarro MD Unavailable [phone] Raven Laguna MD Primary Care Provider [phone] Reason for Referral * Diagnostic Imaging Ultrasound (Routine) - Pending Review Specialty Diagnoses / Procedures Referred By Contac t Referred To Contact Radiology. Diagnoses Encounter for follow-up ultrasound of anatomy growth restriction antepartum Procedures [facility] US Comprehensive Single F/U Melo Odonnell MD [address] [place] [address] [place] [address] Referral ID Status Reason Start Date Expiration Date V isits Requested Visits Authorized [id number] Pending Review 06/24/2023 06/23/2024 1 1 GER BANQUET Reason for Visit * Diagnostic Imaging Ultrasound (Routine) - Pending Review Specialty Diagnoses / Procedures Referred By Contac t Referred To Contact Radiology. Diagnoses Encounter for follow-up ultrasound of anatomy growth restriction antepartum Procedures [facility] US Comprehensive Single F/U Melo Odonnell MD [address] [place] [address] Referral ID Status Reason Start Date Expiration Date V isits Requested Visits Authorized [id number] Pending Review 06/24/2023 06/23/2024 1 1 Encounter Details Date Type Department Care Team (Latest Contact Info) Description 07/15/2023 9:30 AM MANAGER BANQUET Hospital Encounter [facility] [place] [address] [place] [address] Melo Odonnell MD [address] [place] [address] Encounter for follow-up ultrasound of anatomy; growth restriction antepartum Social History Tobacco Use Types Packs/Day Years [...] Sex Assigned at Female 06/19/2023 11:52 AM MANAGER BANQUET Gender Identity Female 06/19/2023 11:52 AM MANAGER BANQUET Sexual Orientation Straight 06/19/2023 11 :52 AM MANAGER BANQUET documented as of this encounter Plan of Treatment Not on file documented as of this encounter Procedures Procedure Name Priority Date/Time Associated Diagnosis Comments [facility] US COMPREHENSIVE SINGLE F/U Routine 07/15/2023 10:14 AM MANAGER BANQUET Encounter for follow-up ultrasound of anatomy growth restriction antepartum documented in this encounter Results * [facility] US Comprehensive Single F/U (07/15/2023 10:14 AM MANAGER BANQUET) Anatomical Region Laterality Modality Ultrasound 07/15/2023 9:45 AM MANAGER BANQUET Impressions 07/15/2023 10:31 AM MANAGER BANQUET IMPRESSION ----- 1. Morales intrauterine at 23w [...] on US evaluation. Narrative 07/15/2023 10:31 AM MANAGER BANQUET ?Comp Follow Up ----- Pat. Name: ETIENNE LANGE ? Study Date: ??07/15/2023 9:45am Pat. NO: ??[id number] ?Referring ??MD: KRISTEL CASTILLO Site: ??[facility] ? House Piping Inspector: Lovely Penaloza RDMS : ??1990 ?Age: ?? [...] 0 lb 7 ?oz EFW by ?Hadlock ([id number]) ANATOMY ----- Gender: uncertain. MATERNAL STRUCTURES ----- Cervix ?Visualized ? Appearance: Appears Closed ? Approach - Transabdominal Right Ovary ?Not examined Left Ovary ?Not examined RECOMMENDATION ----- Findings reviewed with Etienne and her partner - this was a possibility but not anticipated by them or by our team. We have notified the primary OB team of Dr. Ray Garcia in [place]. We very briefly reviewed options for delivery including induction delivery locally vs. surgical delivery, which I am not sure if she would need to be referred to our Kitchen Steward colleagues in [place] for that procedure. They are leaning towards a timely induction delivery locally in [place] at this time. Dr. Castillo is aware and will call the couple [...] recommend maternal testing for antiphospholipid antibodies - oyqo-5-kxeimackvqwj antibodies, lupus anticoagulation and anticardiolipin antibodies. We are happy to see her back after her loss for review of pathology and lab results, to help guide care for any future pregnancies. Procedure Note eMlo Odonnell MD - 07/15/2023 Comp Follow Up ----- Pat. Name: ETIENNE LANGE Study Date: 07/15/2023 9:45am Pat. NO: [id number] Referring MD: KRISTEL CASTILLO Site: [facility] House Piping Inspector: Lovely Penaloza RDMS : 1990 Age: 32 ----- INDICATION ----- Early Onset FGR on previous u/s DEMISE METHOD ----- Transabdominal ultrasound examination. View: Sufficient ----- Morales . Number of fetuses: 1 DATING ----- DateDetailsGest. age RODGER LMP 01/27/2023ycle: irregular, long [id number] w + 1 d 11/03/2023 Prior assessment [...] 0 lb 7 oz EFW by Hadlock ([id number]) ANATOMY ----- Gender: uncertain. MATERNAL STRUCTURES ----- Cervix Visualized Appearance: Appears Closed Approach - Transabdominal Right Ovary Not examined Left Ovary Not examined RECOMMENDATION ----- Findings reviewed with Etienne and her partner - this was a possibilitybut not anticipated by them or by our team. We have notified the primary OB team of Dr. Ray Garcia in [place].We very briefly reviewed options for delivery including induction deliverylocally vs. surgical delivery, which I am not sure if she would need to be referred to ourOb/Electronic Imager colleagues in [place] for that procedure. They are leaningtowards a timely induction delivery locally in [place] at this time. Dr. Castillo is awareand will call the couple this [...] I recommend maternal testing for antiphospholipid antibodies -xqrr-2-sbwviriojrqx antibodies, lupus anticoagulation and anticardiolipinantibodies. We are [...] based on US evaluation. Melo Odonnell MD IMG MF US ORDERAB LES documented in this encounter Visit Diagnoses Diagnosis Encounter for follow-up ultrasound of anatomy growth restriction antepartum documented in this encounter Care Teams Bleach Supervisor Relationship Specialty Start Date End Date Raven Laguna MD [address] [address] PCP - General wireless watcher 04/23/23 Lamine Pizarro MD [address] [place] [address] Nephrology 04/23/23 documented as of this encounter
--- OUTSIDE RECORDS SUMMARY | 2023-07-15 16:01 | XMS_ITS | Encounter Summary ---
Author Name Unknown Organization [place] Address [address] [place] [address] Care Team Providers Care Aoc Airspace Control Officer Name Role Phone Lamine Pizarro MD Unavailable [phone] Raven Laguna MD Primary Care Provider [phone] Encounter Details Date Type Department Care Team (Latest Contact Info) Description 06/24/2023 Travel Social History Tobacco Use Types Packs/Day [...] Sex Assigned at Female 06/19/2023 11:52 AM PUBLICATIONS DISTRIBUTION CLERK Gender Identity Female 06/19/2023 11:52 AM PUBLICATIONS DISTRIBUTION CLERK Sexual Orientation Straight 06/19/2023 11 :52 AM PUBLICATIONS DISTRIBUTION CLERK documented as of this encounter Plan of Treatment Not on file documented as of this encounter Visit Diagnoses Not on filedocumented in this encounter Care Teams Aoc Airspace Control Officer Relationship Specialty Start Date End Date Raven Laguna MD [facility] [address] [place] [address] PCP - General marketing campaign analyst 04/23/23 Lamine Pizarro MD [address] [place] [address] Nephrology 04/23/23 documented as of this encounter
--- OUTSIDE RECORDS SUMMARY | 2023-07-15 16:01 | XMS_ITS | Encounter Summary ---
Author Name Unknown Organization [place] Address [address] [place] [address]. [place] [address] Care Team Providers Care Trust And Estates Attorney Name Role Phone Lamine Pizarro MD Unavailable [phone] Raven Laguna MD Primary Care Provider [phone] Reason for Visit * Reason Comments Genetic Counseling * Consultation (Routine: Next available opening) - Pending Review Specialty Diagnoses / Procedures Referred By Kevin montalvo Referred To Contact Diagnoses Abnormal finding on ultrasound Melo Odonnell MD [address] [facility] [address] [place] [address] Referral ID Status Reason Start Date Expiration Date V isits Requested Visits Authorized [id number] Pending Review 06/24/2023 06/23/2024 1 1 Encounter Details Date Type Department Care Team (Late st Contact Info) Description 06/24/2023 1:30 PM BROOMCORN SORTER Office Visit [facility] [place] [address] [facility] [address] [place] [address] Melo Odonnell MD [address] [facility] [address] [place] [address] Sobeida Donovan GC [address] [facility] [place] [address] Abnormal finding on ultrasound (Primary [...] Sex Assigned at Female 06/19/2023 11:52 AM BROOMCORN SORTER Gender Identity Female 06/19/2023 11:52 AM BROOMCORN SORTER Sexual Orientation Straight 06/19/2023 11 :52 AM BROOMCORN SORTER documented as of this encounter Progress Notes * Sobeida Donovan, GC - 06/24/2023 1:30 PM CST [facility] [place] Genetic Counseling Consult Patient: Darius [place] Date of : 1990 Date of Service: 06/24/23 Darius was seen at the [facility] [place] for genetic consultation atthe request of Dr. Odonnell. The indication for genetic counseling is abnormal ultrasound showing intrauterine growth restriction. The patient was accompanied to this visit by her , Isaac. The session was conducted in [place]. IMPRESSION/ PLAN 1. Darius has not had genetic screening in this current and would like additional time to consider screening. She requested an additional genetic counseling visit attached to her next ultrasound appointment in three weeks. CPT codes for non-invasive testing were provided today. 2. Carrier screening was not discussed in detail today due to time constraints. An educational handout about carrier screening as well as CPT codes were provided today. 3. Darius had a level II comprehensive anatomy ultrasound today. Please see the ultrasound reportfor further details. 4. Further recommendation include a follow-up ultrasound with [facility]. The upcoming ultrasound has beenscheduled for 07/15/2023. A follow-up genetic counseling appointment has also been scheduled for this visit. HISTORY /Parity: Darius's history is significant for: One complicated by preeclampsia CURRENT Current Age: [age] year old Age at Delivery: 32 year old RODGER: 11/10/2023, by Ultrasound Gestational Age: 20w1d This is a single gestation. This was conceived spontaneously. FAMILY HISTORY A three-generation family history was not obtained today due to our focus on other topics and time constraints. Broadly, the reported family history is unremarkable for multiple miscarriages, stillbirths, defects, intellectual disabilities, autism spectrum disorder, developmental delays, cancer diagnosed under 50, known genetic conditions, and consanguinity. The family history was reported by Darius and Isaac. Of note, Iasac shared he and his male relatives on his father's side have histories of colorectal concerns such as diverticulosis and colon polyps. Number of polyps was reported as being in the 10s asopposed to 100s or 1000s. Isaac has had two paternal relatives with histories of colorectal cancer, both diagnosed over the age of 50. We briefly discussed that cancer most often occurs by chance, however some families seem to develop cancer more frequently than expected. We discussed that hereditary cancer predisposition syndromes often cause cancer diagnoses in multiple relatives in multiple generations at earlier ages. Genetic counseling is available for cancer syndromes. Cancer family history, even without genetic testing, can change cancer screening recommendations for family members and aid in insurance coverage for access to them as well. The most informative individuals to complete cancer genetic counseling and genetic testing are those with a personal history of cancer or those closely related to the affected individuals. We reviewed that if the family wants more information they can contact the [facility] Cancer Risk Management Program ( ). RISK ASSESSMENT FOR CHROMOSOME CONDITIONS We explained that the risk for chromosome abnormalities increases with maternal age. We discussed specific features of common chromosome abnormalities, including Down syndrome, trisomy 13, trisomy 18, and sex chromosome trisomies. At age 32 at midtrimester, the risk to have a baby with Down syndrome is 1 in 597. At age 32 at midtrimester, the risk to have a baby with any chromosome abnormality is 1 in 299. Of note, intrauterine growth restriction (IUGR) was seen on Darius's ultrasound today. IUGRis commonly defined as an estimated weight below the tenth percentile for any gestational age. Pregnancies with IUGR typically have more significant growth restriction than pregnancies with small for gestational age which can sometimes be constitutionally small, for example, due to parental size and height. Establishing accurate dating is always important before classifying IUGR. In 70-80% of IUGR the growth restriction is asymmetrical which means the abdominal circumference is more significantly decreased then the head and femurs. In 20-30% of IUGR the growth restriction is symmetrical and the head, abdomen, and femurs are proportionally decreased. Fetuses with asymmetrical IUGR have been noted to have a higher risk for major anomalies, low weight, mortality, hypertensive disorders of , delivery, and overall poor outcomes. We discussed that there can be many causes of IUGR including maternal factors (such as exposures, maternal conditions, and maternal weight), factors (such as genetic causes, in utero infections, multiple gestations like twins), and placental factors (such as placental insufficiency, placentalabruption, and confined placental mosaicism). Additional ultrasounds and monitoring throughout the are common when IUGR is detected. Commonly growth ultrasounds are performed every few weeks as well as studies of the blood flow throughthe umbilical artery. Genetic amniocentesis is recommended to consider. Darius and Isaac shared that they were not interested in diagnostic/invasive testing options at this time. Non- invasive methods are also available and would likely include cell-free DNA aneuploidy screening for common trisomies and maternal serology studies. Evaluation and referral to a pediatrician active practice would be recommended if there are any other concerns such as abnormalities, dysmorphic features, developmental delays, or growth problems after delivery. Darius has not had genetic screening in this and declines options discussed today. Darius and Isaac would like to discuss genetic testing options further. Darius expressed the desire to have the screening results for her healthcare team to know but that she would not want to know theresults. The couple shared that a positive result would not change management decisions but could influence planning. We discussed that [facility] is already recommending additional monitoring of this given the growth restriction, and that genetic screening can be pursued at any time. Darius elected to have an additional genetic counseling session at her next ultrasound visit to discuss testing in greater depth and potentially coordinate testing. GENETIC TESTING OPTIONS FOR CHROMOSOMAL CONDITIONS Genetic testing during a includes screening and diagnostic procedures. Screening tests are non-invasive which means no risk to the and includes ultrasounds and blood work. The benefits and limitations of screening were reviewed. Screening tests provide a risk assessment (chance) specific to the for certain chromosome abnormalities but cannot definitively diagnose or exclude a chromosome abnormality. Follow-up genetic counseling and consideration of diagnostic testing is recommended with any abnormal screening result. Diagnostic testing during a is more certain and can test for more conditions. However, the tests do have a risk of miscarriage that requires careful consideration. These tests can detect chromosome ab normalities with greater than 99% certainty. Results can be compromised by maternal cell contamination or mosaicism and are limited by the resolution of current genetic testing technology. There is no screening or diagnostic test that detects all forms of defects or intellectual disability. We discussed the following screening options: Non-invasive testing (NIPT) Also called cell-free DNA screening because it detects chromosomes from the placenta in the person's blood Can be done any time after 10 weeks gestation Screens for trisomy 21, trisomy 18, trisomy 13, and sex chromosome aneuploidies Cannot screen for open neural tube defects, maternal serum AFP after 15 weeks is recommended We discussed the following ultrasound options: Comprehensive level II ultrasound ( Anatomy Ultrasound) Ultrasound done between 18-20 weeks gestation Screens for major defects and markers for aneuploidy (like trisomy 21 and trisomy 18) Includes looking at the fetus/baby's growth, heart, organs (stomach, kidneys), placenta, and amniotic fluid We discussed the following diagnostic options: Darius declined an in depth discussion of screening options. The couple is aware these options remain. They were encouraged to contact myself or [facility] if they would like to discuss these options further at a later time. CARRIER SCREENING Expanded carrier screening is available to screen for autosomal recessive conditions and X-linked conditions in a large list of genes. Autosomal recessive conditions happen when a mutation has been inherited from the egg and sperm and include conditions like cystic fibrosis, thalassemia, hearing loss, spinal muscular atrophy, and more. X-linked conditions happen when a mutation has been inheritedfrom the egg and include conditions like fragile X syndrome. screening is another avenue through which some of these conditions may be diagnosed. About [place] Screening Carrier screening was not discussed today due to time constraints and focus on other topics. Carrier screening can be discussed in more detail when Darius returns to [facility] for her next genetic counseling visit. An educational handout on carrier screening as well as CPT codes were provided today. It was a pleasure to be involved with Darius???s care. [id number] time of the meeting was 25 minutes. Sobeida Donovan MS, [facility] Maternal Medicine Office: [phone] [facility]: [phone] [facility] MCORN SORTER documented in this encounter Plan of Treatment Not on file documented as of this encounter Visit Diagnoses Diagnosis Abnormal finding on ultrasound- Primary Other nonspecific (abnormal) findings on radiological and other examinations of body structure documented in this encounter Care Teams Trust And Estates Attorney Relationship Specialty Start Date End Date Raven Laguna MD [address] [address] PCP - General appointment coordinator 04/23/23 Lamine Pizarro MD [address] [place], [place] [address] Nephrology 04/23/23 documented as of this encounter
--- OUTSIDE RECORDS SUMMARY | 2023-07-15 16:01 | XMS_ITS | Encounter Summary ---
Author Name Unknown Organization [place] Address [facility], [id number] [facility] [place] [address] Care Team Providers Care Paint Roller Covers Supervisor Name Role Phone Lamine Pizarro MD Unavailable [phone] Raven Laguna MD Primary Care Provider [phone] Reason for Visit * Reason Comments Ultrasound RL2-FGR, Subopt, CHT N, Echogenic bowel Encounter Details Date Type Department Care Team (Late st Contact Info) Description 07/15/2023 10:00 AM FINANCIAL WRITER Office Visit [facility] [place] [address] [facility] [address] [place] [address] Melo Odonnell MD [address] [facility] [address] [place] [address] demise, greater than 22 weeks, antepartum, single or unspecified fetus (Primary Dx) Social History Tobacco Use Types [...] Sex Assigned at Female 06/19/2023 11:52 AM FINANCIAL WRITER Gender Identity Female 06/19/2023 11:52 AM FINANCIAL WRITER Sexual Orientation Straight 06/19/2023 11 :52 AM FINANCIAL WRITER documented as of this encounter Progress Notes * Melo Odonnell MD - 07/15/2023 10:00 AM CST Please see full imaging report from [employer] program under imaging tab. demise diagnosed today measuring 17 weeks, 23 weeks by dates. Findings reviewed with Darius and her partner - this was a possibility but not anticipated by them or by our team. We have notified the primary OB team of Dr. Ray Garcia in [place]. We very briefly reviewedoptions for delivery including induction delivery locally vs. surgical delivery, which I am not sure if she would need to be referred to our Hospital Social Worker colleagues in [place] for that procedure. They are leaning towards a timely induction delivery locally in [place] at this time. Dr. Ramirez is aware and will call the couple this afternoon to discuss next steps. We are willing to assistwith a surgical referral as needed; patient is [...] recommend maternal testing for antiphospholipid antibodies - pxud-[id number] antibodies, lupus anticoagulation and anticardiolipin antibodies. We are happy to see her back after her loss for review of pathology and lab results, to help guide care for any future pregnancies. Melo Odonnell MD Maternal Medicine NCIAL WRITER documented in this encounter Plan of Treatment Not on file documented as of this encounter Visit Diagnoses Diagnosis demise, greater than 22 weeks, antepartum, single or unspecified fetus- Primary documented in this encounter Care Teams Paint Roller Covers Supervisor Relationship Specialty Start Date End Date Raven Laguna MD [facility] [address] [place] [address] PCP - General mid wife 04/23/23 Lamine Pizarro MD [address] [place] [address] Nephrology 04/23/23 documented as of this encounter
--- OUTSIDE RECORDS SUMMARY | 2023-07-15 16:02 | XMS_ITS | Encounter Summary ---
Author Name Unknown Organization [place] Address [address] [place] [address]. [place] [address] Care Team Providers Care Gamb Cutter Name Role Phone Lamine Pizarro MD Unavailable [phone] Raven Laguna MD Primary Care Provider [phone] Encounter Details Date Type Department Care Team (Late st Contact Info) Description 06/18/2023 Medical Correspondence [facility] Info Mgmt [facility] [address] [place] [address] Scan, Non-Provider Social History Tobacco Use Types Packs/Day Years Used Date Smoking Tobacco: Never Assessed Adolescent Education Answer Date Record ed Getting School Help Needed Not on file 04/22 Sex and Gender Information Value Date Recorded Sex Assigned at Female 06/19/2023 11:52 AM NATIONAL SALES DIRECTOR Gender Identity Female 06/19/2023 11:52 AM NATIONAL SALES DIRECTOR Sexual Orientation Straight 06/19/2023 11 :52 AM NATIONAL SALES DIRECTOR documented as of this encounter Plan of Treatment Not on file documented as of this encounter Visit Diagnoses Not on filedocumented in this encounter Care Teams Gamb Cutter Relationship Specialty Start Date End Date Raven Laguna MD [facility] [address] [place] [address] PCP - General lens maker 04/23/23 Lamine Pizarro MD [address] [place], [place] [address] Nephrology 04/23/23 documented as of this encounter
--- OUTSIDE RECORDS SUMMARY | 2023-07-15 16:02 | XMS_ITS | Encounter Summary ---
Author Name Unknown Organization [place] Address [address] [place] [address]. [place] [address] Care Team Providers Care Dry Box Tender Name Role Phone Lamine Pizarro MD Unavailable [phone] Raven Laguna MD Primary Care Provider [phone] Encounter Details Date Type Department Care Team (Latest Contact Info) Description 06/19/2023 Travel Social History Tobacco Use Types Packs/Day Years Used Date Smoking Tobacco: Never Assessed Adolescent Education Answer Date Record ed Getting School Help Needed Not on file 04/22 Sex and Gender Information Value Date Recorded Sex Assigned at Female 06/19/2023 11:52 AM CULTURE ROOM WORKER Gender Identity Female 06/19/2023 11:52 AM CULTURE ROOM WORKER Sexual Orientation Straight 06/19/2023 11 :52 AM CULTURE ROOM WORKER documented as of this encounter Plan of Treatment Not on file documented as of this encounter Visit Diagnoses Not on filedocumented in this encounter Care Teams Dry Box Tender Relationship Specialty Start Date End Date Raven Laguna MD [facility] [address] [place] [address] PCP - General manufacturing project engineer 04/23/23 Lamine Pizarro MD [address] [place] [address] Nephrology 04/23/23 documented as of this encounter
--- OUTSIDE RECORDS SUMMARY | 2023-07-15 16:02 | XMS_ITS | Encounter Summary ---
Author Name Unknown Organization [place] Address [address] [place] [address]. [place] [address] Care Team Providers Care Blower Insulator Name Role Phone Lamine Pizarro MD Unavailable [phone] Raven Laguna MD Primary Care Provider [phone] Reason for Visit * Reason Onset Date Comments *-*INCOMING RECORDS*-* 06/12/2023 Encounter Details Date Type Department Care Team (Late st Contact Info) Description 06/12/2023 PRE VISIT [facility] [address] [address] Lamine Pizarro MD [address] [place] [id number] *-*INCOMING RECORDS*-* Social History Tobacco Use Types Packs/Day Years Used Date Smoking Tobacco: Never Assessed Adolescent Education Answer Date Record ed Getting School Help Needed Not on file 04/22 Sex and Gender Information Value Date Recorded Sex Assigned at Female 06/19/2023 11:52 AM ETIQUETTE COACH Gender Identity Female 06/19/2023 11:52 AM ETIQUETTE COACH Sexual Orientation Straight 06/19/2023 11 :52 AM ETIQUETTE COACH documented as of this encounter Plan of Treatment Not on file documented as of this encounter Visit Diagnoses Not on filedocumented in this encounter Care Teams Blower Insulator Relationship Specialty Start Date End Date Raven Laguna MD [address] [address] PCP - General reinspector 04/23/23 Lamine Pizarro MD [address] [place] [address] Nephrology 04/23/23 documented as of this encounter
--- OUTSIDE RECORDS SUMMARY | 2023-07-15 16:02 | XMS_ITS | Encounter Summary ---
Author Name Unknown Organization [place] Address [address] [place] [address] Care Team Providers Care Artist Woodblock Name Role Phone Lamine Pizarro MD Unavailable [phone] Raven Laguna MD Primary Care Provider [phone] Reason for Referral * Diagnostic Imaging Ultrasound (Routine) - Pending Review Specialty Diagnoses / Procedures Referred By Contac t Referred To Contact Radiology. Diagnoses related condition, antepartum Procedures [facility] US Comprehensive Single Esme Castillo MD [address] [place] [address] Referral ID Status Reason Start Date Expiration Date V isits Requested Visits Authorized [id number] Pending Review 06/19/2023 06/18/2024 1 1 OR FINANCE MANAGER Reason for Visit * Diagnostic Imaging Ultrasound (Routine) - Pending Review Specialty Diagnoses / Procedures Referred By Contac selvin Referred To Contact Radiology. Diagnoses related condition, antepartum Procedures [facility] Esme Wilson MD [address] [place] [address] Referral ID Status Reason Start Date Expiration Date V isits Requested Visits Authorized [id number] Pending Review 06/19/2023 06/18/2024 1 1 Encounter Details Date Type Department Care Team (Latest Contact Info) Description 06/24/2023 1:26 PM SENIOR FINANCE MANAGER - 06/24/2023 11:59 PM SENIOR FINANCE MANAGER Hospital Encounter [facility] [place] [address] [facility] [address] [place] [address] Esme Castillo MD [address] [place] [address] Melo Odonnell MD [address] [place], [place] [address]E [facility] [address] [place] [address] related condition, antepartum Discharge Disposition: Home or Self Care Social History Tobacco Use Types Packs/Day Years [...] Sex Assigned at Female 06/19/2023 11:52 AM SENIOR FINANCE MANAGER Gender Identity Female 06/19/2023 11:52 AM SENIOR FINANCE MANAGER Sexual Orientation Straight 06/19/2023 11 :52 AM SENIOR FINANCE MANAGER documented as of this encounter Plan of Treatment Not on file documented as of this encounter Procedures Procedure Name Priority Date/Time Associated Diagnosis Comments [facility] US COMPREHENSIVE SINGLE Routine 06/24/2023 2:22 PM SENIOR FINANCE MANAGER related condition, antepartum documented in this encounter Results * [facility] US Comprehensive Single (06/24/2023 2:22 PM SENIOR FINANCE MANAGER) Anatomical Region Laterality Modality Ultrasound 06/24/2023 1:27 PM SENIOR FINANCE MANAGER Impressions 06/24/2023 4:31 PM SENIOR FINANCE MANAGER IMPRESSION ----- 1. Morales intrauterine at 20w [...] within normal limits. Narrative 06/24/2023 4:31 PM SENIOR FINANCE MANAGER ?Comprehensive ----- Pat. Name: BRIDGETT LANGELER ? Study Date: ??06/24/2023 1:27pm Pat. NO: ??[id number] ?Referring ??MD: ESME CASTILLO Site: [facility] ? Rolling Machine Operator: Soledad Alejandro RDMS : ??1990 ?Age: ?? [...] 0 lb 9 ?oz EFW by ?Hadlock ([id number]) Head / Face / Neck Biometry: Counter Person ? 4.5 ? mm CM ?4.1 ? [...] vena cava. Inferior vena cava. 3-vessel view. 8-ksxdrp-ozogqhq view. Cardiac position. Cardiac size. Cardiac ? [...] genetic counseling team at her follow up [facility] visit. She has chronic HTN not [...] we plan for her to return to [facility] in 3 weeks, at which time we will initiate CTG if FGR is persistent. She will continue to watch her BP, and any new symptoms, very closely. They are planning on driving to [place] to see family next week, and she [...] medical record, and communicating with other health care tech and/or care coordination. Procedure Note Melo Odonnell MD - 06/24/2023 Comprehensive ----- Pat. Name: ETIENNE LANGE Study Date: 06/24/2023 1:27pm Pat. NO: [id number] Referring MD: ESME CASTILLO Site: [facility] Rolling Machine Operator: Soledad Alejandro RDMS : 1990 Age: 32 ----- INDICATION ----- Early Onset FGR - RODGER changed today. Chronic Hypertension - no medications. History of Preeclampsia with delivery. METHOD ----- Transabdominal ultrasound examination. View: Sufficient ----- Morales . Number of fetuses: 1 DATING ----- DateDetailsGest. age RODGER LMP 01/27/2023ycle: irregular, long [id number] w + 1 d 11/03/2023 Prior assessment [...] 0 lb 9 oz EFW by Hadlock ([id number]-FL) Head / Face / Neck Biometry: Counter Person 4.5 mm CM 4.1 mm Nasal bone [...] venacava. Inferior vena cava. 3- vessel view. 0-faxzpk-wksmikc view. Cardiacposition. Cardiac size. Cardiac rhythm. Right [...] abnormalities. Ultrasound, when views completed, can routinely ebnhfw11-18% of structural abnormalities. We discussed our recommendation [...] our genetic counseling team at herfollow up [facility] visit. She has chronic HTN not [...] we plan for her to return to [facility] in 3weeks, at which time we will initiate CTG if FGR is persistent. Anahy continue to watch her BP, and any new symptoms, very closely. They are planning on driving to [facility] see family next week, and she has [...] electronic medical record, andcommunicating with other health care tech and/or carecoordination. IMPRESSION ----- 1. Morales intrauterine [...] Doppler flow was within normal limits. Esme Castillo MD IMG MFM US O RDERABLES documented in this encounter Visit Diagnoses Diagnosis related condition, antepartum documented in this encounter Care Teams Artist Woodblock Relationship Specialty Start Date End Date Raven Laguna MD [address] [address] PCP - General auto mechanic apprentice 04/23/23 Lamine Pizarro MD [address] [place] [address] Nephrology 04/23/23 documented as of this encounter
--- OUTSIDE RECORDS SUMMARY | 2023-07-15 16:02 | XMS_ITS | Clinical Summary ---
Author Name Unknown Organization [employer] [facility] Address [place], [place] [address] Care Team Providers Care Chief Program Officer Name Role Phone Jyoti Cope DO Primary Care Provider [phone] Allergies Active Allergy Reactions Criticality Noted Date Comments Sulfa (Sulfonamide Antibiotics) *Unknown Unknown 06/27 Medications Medication Sig Dispensed Refills Start Date End Date Status Wemjthjo-Hx-Qmm-Fe-FA tab tablet Take 1 Tablet by mouth [...] age to complete this topic Care Teams Chief Program Officer Relationship Specialty Start Date End Date Jyoti Cope DO [address] [place] [address] PCP - General Family Practice 01/08/23
--- OUTSIDE RECORDS SUMMARY | 2023-07-15 16:02 | XMS_ITS | Encounter Summary ---
Author Name Unknown Organization [place] Address [address] [place] [address] Care Team Providers Care Oil Field Pumper Name Role Phone Lamine Pizarro MD Unavailable Raven Laguna MD Primary Care Provider [phone] Reason for Referral * Diagnostic Imaging Ultrasound (Routine) - Pending Review Specialty Diagnoses / Procedures Referred By Contac t Referred To Contact Radiology. Diagnoses related condition, antepartum Procedures [facility] US Comprehensive [facility] Esme Castillo MD [address] [place] [address] Referral ID Status Reason Start Date Expiration Date V isits Requested Visits Authorized [id number] Pending Review 06/19/2023 06/18/2024 1 1 L STAMPER * Consultation (Routine: Next available opening) - Pending Review Specialty Diagnoses / Procedures Referred By Contac t Referred To Contact Diagnoses related condition, antepartum Esme Castillo MD [address] [place] [address] Maternal Med [address] [facility] [address] [place] [address] Referral ID Status Reason Start Date Expiration Date V isits Requested Visits Authorized [id number] Pending Review 06/19/2023 06/18/2024 1 1 Question Answer Preferred Location: [facility] RODGER 11/03/2023 Ultrasound Comprehensive US (>than 18 weeks GA) US PROC NONE MFM Issue OTHER (enter details in Comments) - MATERNAL CARE FOR OTHER KNOWN OR SUSPECTED POOR GROWTH KARMA PORTILLO Consultation (unrelated to Ultrasound findings): No Inflammatory Bowel Disease Clinic: Joint MFM and GI Consultation: No Chronic Kidney Disease: Joint MFM and Nephrology Consultation No Genetic Counseling Consultation: No fax [facility] ESME FRANCISCO [phone] Comments MATERNAL CARE FOR OTHER KNOWN OR SUSPECTED POOR GROWTH L STAMPER Encounter Details Date Type Department Care Team (Latest Contact Info) Description 06/19/2023 Transcribe Orders [facility] [address] [address] Esme Castillo MD [address] [place] [address] related condition, antepartum (Primary Dx) Social History Tobacco Use Types Packs/Day Years Used Date Smoking Tobacco: Never Assessed Adolescent Education Answer Date Record ed Getting School Help Needed Not on file 04/22 Sex and Gender Information Value Date Recorded Sex Assigned at Female 06/19/2023 11:52 AM METAL STAMPER Gender Identity Female 06/19/2023 11:52 AM METAL STAMPER Sexual Orientation Straight 06/19/2023 11 :52 AM METAL STAMPER documented as of this encounter Plan of Treatment Scheduled Referrals Name Type Priority Associated Diagnoses Orde r Schedule [facility] Med Ctr Referral - Referral Routine: Next available opening related condition, antepartum Expected: 06/19/2023 (Approximate), Expires: 12/16/2023 documented as of this encounter Results * [facility] US Comprehensive Single (06/24/2023 2:22 PM METAL STAMPER) Anatomical Region Laterality Modality Ultrasound 06/24/2023 1:27 PM METAL STAMPER Impressions 06/24/2023 4:31 PM METAL STAMPER IMPRESSION ----- 1. Morales intrauterine at 20w [...] within normal limits. Narrative 06/24/2023 4:31 PM METAL STAMPER ?Comprehensive ----- Pat. Name: ETIENNE LANGE ? Study Date: ??06/24/2023 1:27pm Pat. NO: ??[id number] ?Referring ??: ESME CASTILLO Site: ??[facility] ? Laminate Floor Installer: Soledad Alejandro RDMS : ??1990 ?Age: ?? [...] 0 lb 9 ?oz EFW by ?Hadlock ([id number]-FL) Head / Face / Neck Biometry: Welder ? 4.5 ? mm CM ?4.1 ? [...] vena cava. Inferior vena cava. 3-vessel view. 5-oobrvc-fhkojwd view. Cardiac position. Cardiac size. Cardiac ? [...] genetic counseling team at her follow up [facility] visit. She has chronic HTN not on [...] we plan for her to return to [facility] in 3 weeks, at which time we will initiate CTG if FGR is persistent. She will continue to watch her BP, and any new symptoms, very closely. They are planning on driving to [place] to see family next week, and she [...] record, and communicating with other health career technical education teacher and/or care coordination. Procedure Note Melo Odonnell MD - 06/24/2023 Comprehensive ----- Pat. Name: ETIENNE LANGE Study Date: 06/24/2023 1:27pm Pat. NO: [id number] Referring MD: ESME CASTILLO Site: [facility] Laminate Floor Installer: Soledad Alejandro RDMS : 1990 Age: 32 ----- INDICATION ----- Early Onset FGR - RODGER changed today. Chronic Hypertension - no medications. History of Preeclampsia with delivery. METHOD ----- Transabdominal ultrasound examination. View: Sufficient ----- Morales . Number of fetuses: 1 DATING ----- DateDetailsGest. age RODGER LMP 01/27/2023ycle: irregular, long [id number] w + 1 d 11/03/2023 Prior assessment [...] 0 lb 9 oz EFW by Hadlock ([id number]-FL) Head / Face / Neck Biometry: Welder 4.5 mm CM 4.1 mm Nasal bone [...] venacava. Inferior vena cava. 3- vessel view. 7-tztbqp-kjiaaep view. Cardiacposition. Cardiac size. Cardiac rhythm. Right [...] abnormalities. Ultrasound, when views completed, can routinely ueskqc99-06% of structural abnormalities. We discussed our recommendation [...] our genetic counseling team at herfollow up [facility] visit. She has chronic HTN not on [...] we plan for her to return to [facility] in 3weeks, at which time we will initiate CTG if FGR is persistent. Anahy continue to watch her BP, and any new symptoms, very closely. They are planning on driving to [facility] see family next week, and she has [...] medical record, andcommunicating with other health career technical education teacher and/or carecoordination. IMPRESSION ----- 1. Morales intrauterine [...] within normal limits. Esme Castillo MD IMG [facility] US O RDERABLES documented in this encounter Visit Diagnoses Diagnosis related condition, antepartum- Primary related condition, antepartum documented in this encounter Care Teams Oil Field Pumper Relationship Specialty Start Date End Date Raven Laguna MD [address] [address] PCP - General paper finisher 04/23/23 Lamine Pizarro MD [address] [place] [address] Nephrology 04/23/23 documented as of this encounter
--- OUTSIDE RECORDS SUMMARY | 2023-07-15 16:02 | XMS_ITS | Encounter Summary ---
Author Name Unknown Organization [place] Address [address] [place] [address]. [place] [address] Care Team Providers Care Hardware Installer Name Role Phone Lamine Pizarro MD Unavailable Raven Laguna MD Primary Care Provider [phone] Reason for Referral * Diagnostic Imaging Ultrasound (Routine) - Pending Review Specialty Diagnoses / Procedures Referred By Kevin montalvo Referred To Contact Radiology. Diagnoses Encounter for follow-up ultrasound of anatomy growth restriction antepartum Procedures [facility] US Comprehensive Single F/U Melo Odonnell MD [address] [place] [address] Referral ID Status Reason Start Date Expiration Date V isits Requested Visits Authorized [id number] Pending Review 06/24/2023 06/23/2024 1 1 FACTURING ASSEMBLER Reason for Visit * Reason Comments Ultrasound L2-poor growth Encounter Details Date Type Department Care Team (Late st Contact Info) Description 06/24/2023 2:00 PM MANUFACTURING ASSEMBLER Office Visit [facility] [place] [address] [facility] [address] [place] [address] Esme Castillo MD [address] [place] [address] Melo Odonnell MD [address] [place] [address] growth restriction antepartum (Primary Dx); Encounter for follow-up ultrasound of anatomy Social History Tobacco Use Types Packs/Day Years [...] Sex Assigned at Female 06/19/2023 11:52 AM MANUFACTURING ASSEMBLER Gender Identity Female 06/19/2023 11:52 AM MANUFACTURING ASSEMBLER Sexual Orientation Straight 06/19/2023 11 :52 AM MANUFACTURING ASSEMBLER documented as of this encounter Last Filed Vital Signs Vital Sign Reading Time Taken Comments Blood Pressure 131/86 06/24/2023 2:51 PM MANUFACTURING ASSEMBLER Pulse 106 06/24/2023 2:51 PM MANUFACTURING ASSEMBLER Temperature - - Respiratory Rate - - Oxygen Saturation 100% 06/24/2023 2:51 PM MANUFACTURING ASSEMBLER Inhaled Oxygen Concentration - - Weight - - Height - - Body Mass Index - - documented in this encounter Progress Notes * Melo Odonnell MD - 06/24/2023 2:00 PM CST Please see full imaging report from ViewPoint program under imaging tab. Thank-you for referring your patient for ultrasound [...] etiologies of FGR including incorrect dating, constitutional, infec tious etiologies (specifically CMV), genetic and structural abnormalities as well as placental and umbilical cord abnormalities. Her dating was reviewed and a change was recommended today. She has not had genetic screening, which was reviewed and recommended today - she opted to think about it and will discuss further with ourgenetic counseling team at her follow up [facility] visit. She has chronic HTN not on medication and takesher BP every day - today it is [...] She denies experiencing any viral symptoms this p regnancy. We reviewed the possible/recommended work up for [...] ultimate goal of management rests on balancing therisk of stillbirth with the risks of prematurity. The recommended surveillance and management of pregnancies complicated by FGR includes serial assessment of growth (every 3 weeks) in addition to weekly UA Dopplers and surveillance. Timing of delivery will depend on Doppler findings, amniotic fluid, monitoring, and interval growth; we will make specific recommendationsas the progresses. We reviewed kick counts and calling guidelines. Given her early gestational age, we plan for her to return to [facility] in 3 weeks, at which time we willinitiate CTG if FGR is persistent. She will continue to watch her BP, and any new symptoms, very closely. They are planning on driving to [place] to see family next week, and she [...] discussing the plan of care, documenting the visitin the electronic medical record, and communicating with other health healthcare management consultant and/or care coordination. Melo Odonnell MD Maternal Medicine FACTURING ASSEMBLER documented in this encounter Nursing Notes * Anabell Phillip, RN - 06/24/2023 2:00 PM CST Patient presents to [facility] for L2 at 21w1d due to poor growth. Positive movement. Denies LOF, vaginal bleeding or cramping/contractions. SBAR given to [facility] MD, see their note in Epic. FACTURING ASSEMBLER documented in this encounter Plan of Treatment Not on file documented as of this encounter Results * [facility] US Comprehensive Single F/U (07/15/2023 10:14 AM MANUFACTURING ASSEMBLER) Anatomical Region Laterality Modality Ultrasound 07/15/2023 9:45 AM MANUFACTURING ASSEMBLER Impressions 07/15/2023 10:31 AM MANUFACTURING ASSEMBLER IMPRESSION ----- 1. Morales intrauterine at 23w [...] on US evaluation. Narrative 07/15/2023 10:31 AM MANUFACTURING ASSEMBLER ?Comp Follow Up ----- Pat. Name: ETIENNE LANGE ? Study Date: ??07/15/2023 9:45am Pat. NO: ??[id number] ?Referring ??MD: ESME CASTILLO Site: ??[facility] ? Security Patrol Officer: Lovely Penaloza RDMS : ??1990 ?Age: ?? [...] Biometry: BPD ?31.6 ?mm ? 15w 6d ?Keri FAIRBANKS ?53.7 ?mm ? 17w 6d ?Nicolaides HC ?139.4 ?mm ?17w 2d ?Hadlock AC ?94.5 ?mm ? 15w 4d ? <1% ?Hadlock Femur ?29.9 ? mm ?19w 2d ?Hadlock Humerus ?27.3 ?mm ? 18w 5d ?Stephany Weight Calculation: EFW ? 190 ? g ? <1% ?Hadlock EFW (lb,oz) ? 0 lb 7 ?oz EFW by ?Hadlock ([id number]-[id number]-FL) ANATOMY ----- Gender: uncertain. MATERNAL STRUCTURES ----- Cervix ?Visualized ? Appearance: Appears Closed ? Approach - Transabdominal Right Ovary ?Not examined Left Ovary ?Not examined RECOMMENDATION ----- Findings reviewed with Etienne and her partner - this was a possibility but not anticipated by them or by our team. We have notified the primary OB team of Dr. Ray Garcia in [place]. We very briefly reviewed options for delivery including induction delivery locally vs. surgical delivery, which I am not sure if she would need to be referred to our Unit Aide Tech colleagues in [place] for that procedure. They are leaning towards a timely induction delivery locally in [place] at this time. Dr. Castillo is aware [...] recommend maternal testing for antiphospholipid antibodies - dafb-3-nyowdhsgryar antibodies, lupus anticoagulation and anticardiolipin antibodies. We are happy to see her back after her loss for review of pathology and lab results, to help guide care for any future pregnancies. Procedure Note Melo Odonnell MD - 07/15/2023 Comp Follow Up ----- Pat. Name: ETIENNE LANGE Study Date: 07/15/2023 9:45am Pat. NO: [id number] Referring MD: ESME CASTILLO Site: [facility] Security Patrol Officer: Lovely Penaloza RDMS : 1990 Age: 32 ----- INDICATION ----- Early Onset FGR on previous u/s [facility] METHOD ----- Transabdominal ultrasound examination. View: Sufficient ----- Morales . Number of fetuses: 1 DATING ----- DateDetailsGest. age RODGER LMP 01/27/2023ycle: irregular, long [id number] w + 1 d 11/03/2023 Prior assessment [...] 0 lb 7 oz EFW by Hadlock ([id number]-[id number]-FL) ANATOMY ----- Gender: uncertain. MATERNAL STRUCTURES ----- Cervix Visualized Appearance: Appears Closed Approach - Transabdominal Right Ovary Not examined Left Ovary Not examined RECOMMENDATION ----- Findings reviewed with Etienne and her partner - this was a possibilitybut not anticipated by them or by our team. We have notified the primary OB team of Dr. Ray Garcia in [place].We very briefly reviewed options for delivery including induction deliverylocally vs. surgical delivery, which I am not sure if she would need to be referred to ourOb/Dresser Tender colleagues in [place] for that procedure. They are leaningtowards a timely induction delivery locally in [place] at this time. Dr. Castillo is awareand [...] I recommend maternal testing for antiphospholipid antibodies -uxpp-1-ayhfwnjtlbyj antibodies, lupus anticoagulation and anticardiolipinantibodies. We are [...] on US evaluation. Melo Odonnell MD IMG MFM US ORDERAB LES documented in this encounter Visit Diagnoses Diagnosis growth restriction antepartum- Primary Encounter for follow-up ultrasound of anatomy Encounter for follow-up ultrasound of anatomy growth restriction antepartum documented in this encounter Care Teams Hardware Installer Relationship Specialty Start Date End Date Raven Laguna MD [address] [address] PCP - General asphalt tile floor layer 04/23/23 Lamine Pizarro MD [address] [place] [address] Nephrology 04/23/23 documented as of this encounter
--- OUTSIDE RECORDS SUMMARY | 2023-07-15 16:02 | XMS_ITS | Encounter Summary ---
Author Name Unknown Organization [facility] Address [address] [place] [address]. [place] [address] Care Team Providers Care Manager Cardiovascular Name Role Phone Lamine Pizarro MD Unavailable [phone] Raven Laguna MD Primary Care Provider [phone] Reason for Visit * Reason Comments Ultrasound L2-IUGR Encounter Details Date Type Department Care Team (Late st Contact Info) Description 06/20/2023 PRE VISIT [facility] [place] [address] [place] [address] Silvia Narvaez RN Ultrasound (L2-IUGR) Social History Tobacco Use Types Packs/Day Years [...] Sex Assigned at Female 06/19/2023 11:52 AM LOG CLERK Gender Identity Female 06/19/2023 11:52 AM LOG CLERK Sexual Orientation Straight 06/19/2023 11 :52 AM LOG CLERK documented as of this encounter Plan of Treatment Not on file documented as of this encounter Visit Diagnoses Not on filedocumented in this encounter Care Teams Manager Cardiovascular Relationship Specialty Start Date End Date Raven Laguna MD [facility] [address] [place], [place] [id number] PCP - General electronic assembler group leader 04/23/23 Lamine Pizarro MD [address] [place] [address] Nephrology 04/23/23 documented as of this encounter
--- OUTSIDE RECORDS SUMMARY | 2023-07-15 16:02 | XMS_ITS | Encounter Summary ---
Author Name Unknown Organization [facility] Address [address] [place] [address]. [place] [address] Care Team Providers Care Brake Adjuster Name Role Phone Unavailable Primary Care Provider Unavailabl e Reason for Referral * Consultation (Routine) - Pending Review Specialty Diagnoses / Procedures Referred By Contac t Referred To Contact Nephrology Diagnoses Proteinuria Personal history of other complications of , childbirth and the puerperium Raven Laguna MD [facility] AND [address] [address] Referral ID Status Reason Start Date Expiration Date V isits Requested Visits Authorized [id number] Pending Review 04/22/2023 04/21/2024 1 1 Question Answer Reason for Referral: Proteinuria Scheduling Instructions: [facility] will call you to coordinate your care as prescribed by the provider. If you don? t hear from a warehouse representative within 2 business days, please call [phone]. Additional Information: HX of pre-clampsia R80.9 Protienuria unspecified Z87.59, HX complications of childbirth and puerperium Comments Referral Transcribed by external fax Provider: Dr Raven Schuster affiliated with [facility] and [facility] at [address] [place] [id number]. [place]: No If yes was is the [facility] Authorization Number: Phone number: [phone] Fax number: [phone] Please be aware that coverage of these services is subject to the terms and limitations of your health insurance plan. Call member services at your health plan with any benefit or coverage questions. [facility] will call you to coordinate your care as prescribed by the provider. If you don? t hear from a warehouse representative within 2 business days, please call [phone]. PROGRAMMER Encounter Details Date Type Department Care Team (Latest Contact Info) Description 04/22/2023 Transcribe Orders GENERIC EXTERNAL DATA DEPARTMENT [place] [address] Proteinuria (Primary Dx); Personal history of other complications of , childbirth and the puerperium Social History Tobacco Use Types Packs/Day Years Used Date Smoking Tobacco: Never Assessed Adolescent Education Answer Date Record ed Getting School Help Needed Not on file 04/22 Sex and Gender Information Value Date Recorded Sex Assigned at Female 06/19/2023 11:52 AM SQL PROGRAMMER Gender Identity Female 06/19/2023 11:52 AM SQL PROGRAMMER Sexual Orientation Straight 06/19/2023 11 :52 AM SQL PROGRAMMER documented as of this encounter Plan of Treatment Scheduled Referrals Name Type Priority Associated Diagnoses Orde r Schedule Adult Nephrology Systems Architecture Analyst Referral Referral Routine Proteinuria Personal History Of Other Complications Of , Childbirth And The Puerperium Expected: 04/22/2023 (Approximate), Expires: 04/22/2024 documented as of this encounter Visit Diagnoses Diagnosis Proteinuria- Primary Personal history of other complications of , childbirth and the puerperium documented in this encounter
[2023-07-15 16:05] VITALS: BP 140/81; PULSE 81
[2023-07-15] MEDS: diphenhydrAMINE 25 MG CAPSULE PO (16:44)
[2023-07-15 16:49] VITALS: BMI 31.8
[2023-07-15] MEDS: miSOPROStoL 200 MCG TABLET 600 MCG VAGINAL (17:00)
[2023-07-15 17:52] LABS: Basophils Absolute Auto 0.04 K/uL (0.00-0.30); Basophils Percent Auto 0.4 % (0.0-3.0); Eosinophils Absolute Auto 0.14 K/uL (0.00-0.50); Eosinophils Percent Auto 1.5 % (0.0-7.0); Hematocrit 36.5 % (33.0-51.0); Hemoglobin* 12.4 gm/dL (12.0-16.0); Immature Granulocytes Abs Auto 0.01 K/uL (0.00-0.30); Immature Granulocytes Pct Auto 0.1 %; Lymphocytes Absolute Auto 1.97 K/uL (0.90-2.90); Mean Corpuscular HGB Conc 34 gm/dL (32-36); Mean Corpuscular Hemoglobin 28 pg (26-34); Mean Corpuscular Volume 83 fL (80-100); Monocytes Percent Auto 5.5 % (0.0-11.0); Neutrophils Absolute Auto 6.71 K/uL (1.7-7.0); Neutrophils Percent Auto 71.5 % (42.0-72.0); Platelet Count* 223 K/uL (140-440); RDW Coefficient of Variation % 13.3 % (11.5-15.5); Red Blood Count 4.41 m/uL (4.00-5.20); White Blood Count* 9.39 K/uL (4.50-11.00)
[2023-07-15 17:55] LABS: Slide Review Reflex No
[2023-07-15 18:02] LABS: Amphetamine Screen Urine Negative (Negative); Barbiturate Screen Urine Negative (Negative); Benzodiazepines Screen Urine Negative (Negative); Cannabinoid Screen Urine Negative (Negative); Cocaine Screen Urine Negative (Negative); Methadone Screen Urine Negative (Negative); Methamphetamines Screen Urine Negative (Negative); Opiate Screen Urine Negative (Negative); Oxycodone Screen Urine Negative (Negative); Phencyclidine Screen Urine Negative (Negative); Tricyclic Antidepressant Urine Negative (Negative)
[2023-07-15 18:09] LABS: INR 0.87 (0.91-1.10); Partial Thromboplastin Time* 29 Seconds (23-33); Prothrombin Time 12.3 Seconds
[2023-07-15 18:10] LABS: Fibrinogen* 329 mg/dL (200-450)
[2023-07-15 18:14] LABS: Alanine Aminotransferase* 9 U/L (4-35); Aspartate Amino Transferase* 21 U/L (12-35); Blood Urea Nitrogen* 9 mg/dL (5-24); Creatinine* 0.5 mg/dL (0.5-1.5); Estimated Glomerular Filt Rate 129 ml/min; Glucose* 85 mg/dL (60-115)
[2023-07-15] MEDS: LOPERAMIDE HCL 2 MG CAPSULE 4 MG PO (18:35)
[2023-07-15] MEDS: ACETAMINOPHEN 500 MG TABLET 1000 MG PO (18:35)
[2023-07-15 18:41] VITALS: BP 141/86; PULSE 79
[2023-07-15 19:55] VITALS: BP 130/75; PULSE 100; TEMP 37.2
--- NOTE | 2023-07-15 20:02 | PM.OBHPLI ---
OB - H&P: HPI Labor/Induction History of Present Illness Date Seen: 07/15/23 Chief Complaint: The patient is a 32 year old 2 para 0-1-0-1 woman at 23 1/7 weeks gestation by 1st trimester US who was diagnosed with severely growth restricted fetus at the time of her initial level I anatomy scan. She had initial consult and level II US today with maternal medicine on 06/24/23, confirming EFW 3%. She had follow up with [facility] today, at which time demise was diagnosed. Anatomy was normal on today's US with MFM, but EFW is only 190 g, about the average weight for an 18 week fetus. The patient was offered dilation and evacuation versus induction of labor, and opted for the latter. OB Problem List: Divina Gray Son: Malik. 1. Hx of Severe Preeclampsia, now w/ chronic htn Daily 81mg ASA started at 12 weeks BP 136/68 at NOB Ratio 0.80 with NOB labs, 24 hour urine = 399mg, repeat ration in 05/2023: 0.2 05/05/2023: Nephrology referral: normal renal US, plan is to follow up after delivery and complete a renal biopsy. Checking BP daily at home daily. Plan is to start medication if BPs persistently more than 140/90s. 2. FAS: EFW: <3rd percentile. Normal anatomy otherwise. S/D ratio normal. Anterior placenta not previa. Perinatology referral placed [facility] level 2 US on 06/24/23: CHANGED RODGER TO 11/10/23. EFW: 3%. echogenic bowel? otherwise normal anatomy, limited views. Normal amount of amniotic fluid, umbilical artery Doppler normal. Has a follow up with them in 3 weeks, at this time she will complete genetic counseling, otherwise continue current management. 3. Hx of section for malpresentation. Planning repeat Desires sterilization 4. Hx anxiety was started on med, did not like how she felt used chiropractic and family med as alternative, no therapy 5. Hx of MRSA infection in 2018 reportedly negative on subsequent testing 6. Headache QOD Daily magnesium supplement Chiropractor and acupuncture weekly Chief complaint: demise Narrative: Darius Lange is a 32 year old female Specific Issues/Plans P2D3-9-0-4 Divina Gray Son: Malik. Baby: [] 1. Hx of Severe Preeclampsia, now w/ chronic htn Daily 81mg ASA started at 12 weeks BP 136/68 at NOB Ratio 0.80 with NOB labs, 24 hour urine = 399mg, repeat ration in 05/2023: 0.2 05/05/2023: Nephrology referral: normal renal US, plan is to follow up after delivery and complete a renal biopsy. Checking BP daily at home daily. Plan is to start medication if BPs persistently more than 140/90s. 2. FAS: EFW: <3rd percentile. Normal anatomy otherwise. S/D ratio normal. Anterior placenta not previa. Perinatology referral placed MFM level 2 US on 06/24/23: CHANGED RODGER TO 11/10/23. EFW: 3%. echogenic bowel? otherwise normal anatomy, limited views. Normal amount of amniotic fluid, umbilical artery Doppler normal. Has a follow up with them in 3 weeks, at this time she will complete genetic counseling, otherwise continue current management. 3. Hx of section for malpresentation. Planning repeat Desires sterilization 4. Hx anxiety was started on med, did not like how she felt used chiropractic and family med as alternative, no therapy 5. Hx of MRSA infection in 2018 reportedly negative on subsequent testing 6. Headache QOD Daily magnesium supplement Chiropractor and acupuncture weekly Meds Home Medications and Allergies Home Medications Medication Instructions Recorded Confirmed Type cholecalciferol (vitamin D3) 50 2,000 unit PO DAILY 06/19/22 07/15/23 History mcg (2,000 unit) tablet docosahexaenoic acid 200 mg mg PO 06/19/22 07/15/23 History capsule ( DHA) magnesium gluconate 27 mg 27 mg PO ONCE 06/19/22 07/15/23 History magnesium (500 mg) tablet (Mag-G) ascorbic acid (vitamin C) 1,000 mg 1 g PO DAILY 04/11/23 07/15/23 History tablet aspirin 81 mg chewable tablet 81 mg PO QDAY 05/14/23 07/15/23 History Allergies Allergy/AdvReac Type Severity Reaction Status Date / Time oxycodone Allergy Intermediate Vomiting Verified 07/15/23 12:41 Sulfa (Sulfonamide Allergy Intermediate Hives Verified 07/15/23 12:41 Antibiotics) OB - H&P: Exam Physical Exam: Vital signs: Temp Pulse BP 99 F 100 130/75 07/15/23 19:55 07/15/23 19:55 07/15/23 19:55 Narrative: Physical exam: General: No acute distress Psych: Alert and oriented x3, full affect, tearful HEENT: Normocephalic, atraumatic Neck: No cervical adenopathy, no thyromegaly Heart: Regular rate and rhythm, no murmur rub or gallop Lungs: Clear to auscultation bilaterally Abdomen: Soft, nontender, fundus at umbilicus Lower extremities: No edema or erythema Pelvic exam: Mons normal, clitoris normal, urethral meatus normal. Labia minora and majora normal in appearance bilaterally. Perineum and anus normal appearance. Vaginal introitus normal appearance. Cervix closed, long, high, posterior and firm. OB - Results Labs Labs: Short CBC 07/15/23 Range/Units 17:37 WBC 9.39 (4.50-11.00) K/uL Hgb 12.4 (12.0-16.0) gm/dL Hct 36.5 (33.0-51.0) % Plt Count 223 (140-440) K/uL BMP 07/15/23 17:37 BUN 9 Creatinine 0.5 Glucose 85 Liver Function 07/15/23 Range/Units 17:37 AST 21 (12-35) U/L ALT 9 (4-35) U/L OB - Problem Based A/P Additional Plan (1) IUFD (intrauterine ): Status: Acute Plan: Involving a severely growth restricted fetus. Patient does have a history of severe preeclampsia. It will be prudent to test for antiphospholipid antibodies. She has mild HTN today. We will continue to follow BP during her hospital stay and treat with antihypertensives as needed. Otherwise, she desires IOL. We discussed the use of vaginal misoprostol for induction of labor in this circumstance. She does have a prior low transverse incision, but at this gestational age with such a small fetus, the risks of uterine rupture to Darius are negligible. We will use 600 mcg as starting dose and begin with 400 mcg Q 4 hours at 11 PM (6 hrs after initial dose). She can have IV narcotics or epidural as desired. We discussed the risk of retained placenta after IOL for IUFD. We also discussed the extensive testing we plan to perform for cause of IUFD. She and her partner are interested in autopsy and genetic testing. We will also test for TORCH infection and APA as noted above. (2) History of severe pre-eclampsia: Status: Acute (3) Chronic hypertension affecting : Status: Acute (4) Previous delivery affecting : Status: Acute Delivery/Labor/Induction Plan Induction method: per misoprostol protocol
[2023-07-15] MEDS: LORazepam 1 MG TABLET PO (23:05)
[2023-07-15] MEDS: SODIUM CHLORIDE 0.9 % (FLUSH) 10 ML SYRINGE IVF (23:06)
[2023-07-15] MEDS: miSOPROStoL 200 MCG TABLET 400 MCG VAGINAL (23:06)
[2023-07-15 23:19] VITALS: BP 133/77; PULSE 82; TEMP 37.1
[2023-07-16] VITALS (52 sets, daily range): BP systolic 109–132; BP diastolic 59–79; PULSE 73–106; RESP 16–18; TEMP 36.7–37.4; O2SAT 93–100
[2023-07-16] MEDS: ACETAMINOPHEN 500 MG TABLET 1000 MG PO ×3 (00:11→12:48)
[2023-07-16] MEDS: MORPHINE 10 MG/ML inj 5 MG IM ×3 (00:33→05:16)
[2023-07-16] MEDS: miSOPROStoL 200 MCG TABLET 400 MCG VAGINAL (03:07)
[2023-07-16] MEDS: SODIUM CHLORIDE 0.9 % (FLUSH) 10 ML SYRINGE IVF (04:25)
[2023-07-16] MEDS: ONDANSETRON 2 MG/ML inj 4 MG IV (06:18)
[2023-07-16] MEDS: fentaNYL 100 MCG/2 ML inj IVP (07:40)
--- NOTE | 2023-07-16 08:03 | PM.OBPNL ---
Subjective Date Seen: 07/16/23 Narrative: Okay Objective Vital Signs: Last Vital Signs Temp 98.1 F 07/16/23 07:00 Pulse 80 07/16/23 07:27 Resp 18 07/16/23 07:00 BP 120/73 07/16/23 07:27 Contractions Monitor mode: External Contraction pattern: Regular Contraction intensity: Moderate Plan Plan: Patient has gotten more uncomfortable, she has received a loading dose of Cytotec of 600mg and two 400mg doses. Pain has been managed overnight with IV opiods. She is interested in epidural, we have hold up on this for now since she would not be able to eat after placement. But this would be our next step for pain management. She was checked by nurses this morning and cervix is still closed, but midline, much softer. Will skip this next dose of Cytotec and will hopefully have her eat something and place epidural afterwards. So far lab work unremarkable. Her blood pressures have been stable, will keep close monitoring.
[2023-07-16] MEDS: LACTATED RINGERS 1000 ML 1,000 ML 125 ML IV (08:15)
[2023-07-16] MEDS: PROMETHAZINE 25 MG/ML INJ 12.5 MG IV (08:29)
[2023-07-16] MEDS: OXYTOCIN 30 unit/500 ML in NS 30 UNIT/500 ML BAG IVPB (11:01)
--- NOTE | 2023-07-16 12:45 | W.PM.OBVAGDE ---
OB Procedure Vag Delivery Mother Details Mother Details: The patient is a 32 year-old, 2, Para 1, admitted on 07/15/23 at 23 1/7 weeks for IOL after demise. Patient with history of previous admitted and received loading dose of Cytotec 600mcg, two doses of 400mcg and IV Oxytocin. Progressed to complete dilation this morning and delivered. : 2 Para: 2 Weeks Gestation: 23.2 Admission Date: 07/15/23 Additional Details Amniotic Membrane Rupture Date: 07/16/23 Amniotic Membrane Rupture Time: 11:52 Amniotic Membrane Fluid Description: Bloody Analgesia/Anesthesia Type: Fentanyl Waterbirth: No Pitcoin: Yes Intrapartal Events: Labor Induction Induction Method: per misoprostol protocol and per pitocin protocol Labor Onset: 06:00 Heart: N/A Delivery Details Delivery Date: 07/16/23 Delivery Time: 11:52 Route of delivery: Gender: Male Infant Viability: Stillbirth; Antepartum Delivery Details: Delivered over intact perineum via spontaneous vaginal delivery. The cord was clamped and baby was wrapped in a towel and taken to warmer to wait for patient to be ready to see baby. Oxytocin was continued and bleeding was monitored, cord was not pulled. Eventually patient started to feel more pressure and placenta was noted to be a least half of it in the vagina and I was able to gently grasp it and with patient pushing the placenta was delivered. 1 Minute Interval Total Score: 0 5 Minute Interval Total Score: 0 Additional Details Placenta Delivery Time: 12:24 Placental Delivery Description: Spontaneous Blood Loss: 200 Laceration: None Episiotomy Description: None Blood Loss Measurement Type: EBL Bakri Used: No Sponge/Need Count Correct: Yes Cord Vessel Description: 3 Vessels Event Summary Status: Uterus well contracted after delivery and bleeding appropriate. Bedside US completed and intrauterine cavity looked homogenous up to fundus, no increased vascularity noted. Disposition: other (Discharge home)
[2023-07-16] MEDS: KETOROLAC 30 MG/ML inj IVP (13:43)
[2023-07-18 00:15] LABS: B2Glycoprotein 1, IgG Antibody <10 SGU (<=20); B2Glycoprotein 1, IgM Antibody <10 SMU (<=20)
[2023-07-18 01:44] LABS: Rapid Plasma Reagin (RPR) Non Reactive (Non Reactive)
[2023-07-18 03:49] LABS: CMV Antibody IgG >10.00 U/mL (<=0.70); CMV Antibody IgM <8.0 AU/mL (<=29.9)
[2023-07-18 03:51] LABS: Toxoplasma gondii Ab, IgG <3.0 IU/mL (<=8.8); Toxoplasma gondii Ab, IgM <3.0 AU/mL (<=7.9)
[2023-07-18 05:40] LABS: Cardiolipin Antibody IgA <10 APL (<=11); Cardiolipin Antibody IgG <10 GPL (<=14); Cardiolipin Antibody IgM 11 MPL (<=12)
[2023-07-19 07:45] LABS: Parvovirus B19 Antibody IgG 5.96 IV (<=0.90); Parvovirus B19 Antibody IgM 0.27 IV (<=0.90)
[2023-07-21 09:58] LABS: FACV Specimen Whole Blood; Factor V Leiden (F5) Mutation Heterozygous
== END 2023-07-16 17:55 | disposition home or self-care (01) | DRG 560 ==
LOC: OB OUT 07-17 11:59 → OB 07-17 12:00
PROVIDERS: Admitting Provider Obstetrics & Gynecology; PCP Family Medicine; Visit Provider Obstetrics & Gynecology
DX: O36.4XX0 Maternal care for intrauterine death, not applicable or unspecified (principal); O16.4 Unspecified maternal hypertension, complicating childbirth; O34.219 Maternal care for unspecified type scar from previous cesarean delivery; Z37.1 Single stillbirth; Z3A.23 23 weeks gestation of pregnancy
CPT/HCPCS: 36415; 59200; 80306; 81241; 82565; 82947; 84439; 84443; 84450; 84460; 84520; 85025; 85384; 85460; 85610; 85613; 85730; 86146; 86147; 86317; 86592; 86644; 86645; 86747; 86778; 86850; 86900; 86901; 87070; 87077; 87186; 88184; 88233; 88262; 88305; G0463; A9270; J1885; J2270; J2405; J2550; J3010; J7120

== ENCOUNTER 2023-07-20 21:49 | Emergency (ER) | payer BC, MEDICAID, SELFPAY ==
[2023-07-20 21:56] VITALS: BP 156/79; PULSE 89; RESP 20; TEMP 36.7; O2SAT 99; BMI 31.6
[2023-07-20 22:02] VITALS: BP 150/97; PULSE 84; RESP 20; O2SAT 98
--- NOTE | 2023-07-20 22:19 | US_ITS ---
Patient: ETIENNE CAMARILLO Facility:?[facility] Patient ID:?[id number] Site Patient ID:?[id number]. Site :?1990 Study:?US-Pelvis PELVIS TA-07/20/2023 11:37:13 PM Ordering Physician:?LAKHWINDER CABEZAS Final Report: INDICATION: [Vaginal bleeding post delivery]. TECHNIQUE: Ultrasound pelvis transabdominal. COMPARISON: [None]. FINDINGS: Uterus: [10 x 8 x 7] cm. [Normal echotexture of the myometrium. No masses.] Endometrium: Transvaginal imaging was performed to better evaluate the endometrium. Endometrial thickness measures [18] mm. [No sign of endometrial mass or fluid.] Right ovary was not visualized. Left ovary measures 3 x 2 x 2 cm. [No ovarian or adnexal masses.] Cul-de-sac: [No significant] free fluid. IMPRESSION: [Homogeneous thickening of the endometrium without evidence of focal abnormal tissue or abnormal color Doppler blood flow. No convincing evidence for retained products of conception]. Dictated by: Jaison Graham MD @ 07/21/2023 00:33:29 Signed by:?Jaison Graham MD @07/21/2023 12:33:29 AM (Electronic Signature)
[2023-07-20 22:59] LABS: Basophils Absolute Auto 0.05 K/uL (0.00-0.30); Basophils Percent Auto 0.6 % (0.0-3.0); Eosinophils Absolute Auto 0.28 K/uL (0.00-0.50); Eosinophils Percent Auto 3.1 % (0.0-7.0); Hemoglobin* 12.5 gm/dL (12.0-16.0); Immature Granulocytes Abs Auto 0.01 K/uL (0.00-0.30); Immature Granulocytes Pct Auto 0.1 %; Lymphocytes Absolute Auto 2.87 K/uL (0.90-2.90); Lymphocytes Percent Auto 32.2 % (20-44); Mean Corpuscular HGB Conc 34 gm/dL (32-36); Mean Corpuscular Hemoglobin 28 pg (26-34); Mean Corpuscular Volume 83 fL (80-100); Monocytes Percent Auto 6.5 % (0.0-11.0); Neutrophils Absolute Auto 5.11 K/uL (1.7-7.0); Neutrophils Percent Auto 57.5 % (42.0-72.0); Platelet Count* 221 K/uL (140-440); RDW Coefficient of Variation % 13.3 % (11.5-15.5); Red Blood Count 4.45 m/uL (4.00-5.20)
[2023-07-20 23:02] VITALS: BP 132/93; RESP 20; O2SAT 99
[2023-07-20 23:03] LABS: Slide Review Reflex No
[2023-07-20 23:15] LABS: Chloride* 107 mmol/L (96-114); Potassium* 3.7 mmol/L (3.6-5.1); Sodium* 139 mmol/L (135-149)
[2023-07-20 23:17] LABS: Creatinine* 0.5 mg/dL (0.5-1.5); Estimated Glomerular Filt Rate 129 ml/min
[2023-07-20 23:18] LABS: Anion Gap 13 mEq/L (7-15); Blood Urea Nitrogen* 9 mg/dL (5-24); Calcium* 9.1 mg/dL (8.4-10.6); Carbon Dioxide* 19 mmol/L (20-32); Glucose* 94 mg/dL (60-115)
[2023-07-20 23:29] VITALS: BP 146/98; PULSE 76; RESP 20; O2SAT 99
[2023-07-20 23:31] VITALS: BP 141/98; PULSE 76; RESP 20; O2SAT 99
[2023-07-20 23:42] VITALS: O2SAT 99
[2023-07-21 00:02] VITALS: BP 144/94; PULSE 76; RESP 20; O2SAT 99
--- NOTE | 2023-07-21 00:14 | ED_ITS ---
HPI - General Date Seen: 07/20/23 Chief complaint: Vaginal Bleeding Stated complaint: stillborn recently, bleeding Time Seen by Provider: 07/20/23 21:51 Source: patient Mode of arrival: ambulatory Limitations: no limitations History of Present Illness HPI Narrative: Patient is a 32-year-old female presenting to the emergency department for vaginal bleeding. She is . She had a stillborn at 23 weeks a few days ago. It occurred here at [facility]. She was doing well up until today when she started having some pelvic pain and cramping. She also noticed she started having vaginal bleeding that started about 3 hours prior to arrival. She says she has gone through 4 pads in that time frame. She does think the bleeding has slowed down a bit now but during left pain and everything else she was concerned. Denies fevers, chills, chest pain, shortness of breath, diarrhea, constipation, dysuria. Denies symptoms like this before. No other concerns noted Related Data Home Medications Medication Instructions Recorded Confirmed cholecalciferol (vitamin D3) 50 2,000 unit PO DAILY 06/19/22 07/20/23 mcg (2,000 unit) tablet ascorbic acid (vitamin C) 1,000 mg 1 g PO DAILY 04/11/23 07/20/23 tablet Previous Rx's Medication Instructions Recorded ibuprofen 600 mg tablet 600 mg PO Q6H PRN #15 tabs 07/16/23 lorazepam 0.5 mg tablet (Ativan) 0.5 - 1 mg (1 - 2 x 0.5 mg) PO QHS 07/16/23 PRN sleep #14 tabs Allergies Allergy/AdvReac Type Severity Reaction Status Date / Time oxycodone Allergy Intermediate Vomiting Verified 07/20/23 21:58 Sulfa (Sulfonamide Allergy Intermediate Hives Verified 07/20/23 21:58 Antibiotics) Review of Systems Status of ROS: Reports: 10 or more systems reviewed and unremarkable except as noted in History and below PFSH [facility] Medical History History of tobacco use ?Z87.891 - Personal history of nicotine dependence (ICD-10) Generalized anxiety disorder ?F41.1 - Generalized anxiety disorder (ICD-10) Polycystic ovary syndrome (12/25/19) ?E28.2 - Polycystic ovarian syndrome (ICD-10) Menorrhagia ?N92.0 - Excessive and frequent menstruation with regular cycle (ICD-10) History of severe pre-eclampsia (07/2021) ?Z87.59 - Personal history of other complications of , childbirth and the puerperium (ICD-10) Depression (06/03/12) ?F32.A - Depression, unspecified (ICD-10) Bunion of great toe of right foot ?M21.611 - Bunion of right foot (ICD-10) History of MRSA infection (07/27/17) ?Z86.14 - Personal history of Methicillin resistant Staphylococcus aureus infection (ICD-10) Surgical History Hx of tonsillectomy ?Z90.89 - Acquired absence of other organs (ICD-10) Status post primary low transverse section (08/16/21) ?Z98.891 - History of uterine scar from previous surgery (ICD-10) Status post laparoscopic cholecystectomy (02/14/15) ?Z90.49 - Acquired absence of other specified parts of digestive tract (ICD- 10) Family History Father Parkinson disease Social History Narrative: SOCIAL? ? Education: 3 years of college? ? 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 ? Partner: Isaac? engaged works at [employer], something with logistics? Lives with: Isaac, son age 20 months? ? Pets: 2 dogs? ? Abuse: Denies past Safe at home with current partner ? ? ? Special Diet: avoids greasy food related to gall bladder removal? ? Ok with a blood transfusion: yes? ? Culture or pentecostalism beliefs: denies? RISK FACTORS? ? Exercise Times/wk: 3x week. elliptical? ? Depression/Anxiety: PP anxiety? ? Previous Treatments: was started on Celexa took self off did not like how she felt. Saw her family practitioner and health and social care teacher? Therapy: NA MALCOLM: 0 PHQ 9: 0? ? Seat Belt Use: Routinely ? Smoking: Denies past/present? ?Smoked quit about 6 years ago smoked for about 2 years, 5-10 cigarettes per day Alcohol/day: Denies while ? when not 2-3 drinks on the weekends Caffeine: 1 cup of coffee a day? ? Drug Use: Denies past/present? What is your current living situation?: I presently have a place to live Problems where you live: no known problems In the past 12 months, utilities in danger of being shut off: no In past 12 months, lack of transportation kept you from medical appts, meetings, work, or getting things needed for daily living: no In the past 12 mos, have been you worried that your food would run out before you had money to buy more?: never true In the past 12 mos, the food you bought just didn't last and you didn't have money to buy more?: never true Smoking Status: Never smoker Second hand tobacco smoke exposure: No How often do you have a drink containing alcohol: never AUDIT-C Alcohol total score: 0 Non-prescribed substance use: denies use How often does anyone, including family, friends and others, physically hurt you : never How often does anyone, including family, friends and others, insult or talk down to you: never How often does anyone, including family, friends and others, threaten you with harm: never How often does anyone, including family, friends and others, scream or curse at you: never Little interest or pleasure in doing things: not at all Feeling down, depressed, or hopeless: not at all Exam Narrative: Exam Narrative: Const: Well-nourished, Well-developed, in mild distress Eyes: PERRL, no conjunctival injection, and symmetrical lids HENT: Atraumatic external nose and ears. Moist mucous membranes. Neck: Symmetric, trachea midline, No thyromegaly. CVS: RRR, No murmurs or gallops. Peripheral pulses 2+ and equal in all extremities RESP: Unlabored respiratory effort. Clear to auscultation bilaterally. GI: Pelvic tenderness throughout, Nondistended, No rebound or guarding. Pelvic: Moderate blood in the vaginal vault, no active bleeding seen MSK:Extremities w/o deformity, Normal Active ROM Skin: Warm, Dry. No rashes or lesions. Neuro: Normal Muscle tone, No focal neurological deficits. Psych: Awake, Alert, & Oriented x3. Appropriate mood and affect. Const: Vital Signs, click to edit/add: Vital Signs - 24 hr 07/20/23 21:56 07/20/23 22:02 07/20/23 23:02 Temperature 98.0 F Pulse Rate 84 Pulse Rate [Right Pulse Oximeter] 89 Respiratory Rate 20 20 20 Blood Pressure 150/97 H 132/93 H Blood Pressure [Ri ght Upper Arm] 156/79 H Pulse Oximetry 99 98 99 Oxygen Delivery Me thod Room Air 07/20/23 23:29 07/20/23 23:31 07/20/23 23:42 Temperature Pulse Rate 76 76 Pulse Rate [Right Pulse Oximeter] Respiratory Rate 20 20 Blood Pressure 146/98 H 141/98 H Blood Pressure [Ri ght Upper Arm] Pulse Oximetry 99 99 99 Oxygen Delivery Me thod Course Vital Signs Vital signs: Initial Vital Signs Temperature 98.0 F 07/20/23 21:56 Temperature Source Temporal Artery Scan 07/20/23 21:56 Pulse Rate 89 07/20/23 21:56 Respiratory Rate 20 07/20/23 21:56 Blood Pressure 156/79 H 07/20/23 21:56 Blood Pressure Mean 104 07/20/23 21:56 Blood Pressure Position Sitting 07/20/23 21:56 Pulse Oximetry 99 07/20/23 21:56 Oxygen Delivery Method Room Air 07/20/23 21:56 Vital Signs Temperature 98.0 F 07/20/23 21:56 Pulse Rate 89 07/20/23 21:56 Respiratory Rate 20 07/20/23 21:56 Blood Pressure 156/79 H 07/20/23 21:56 Pulse Oximetry 99 07/20/23 21:56 Oxygen Delivery Method Room Air 07/20/23 21:56 Temperature 98.0 F 07/20/23 21:56 Pulse Rate 76 07/20/23 23:31 Respiratory Rate 20 07/20/23 23:31 Blood Pressure 141/98 H 07/20/23 23:31 Pulse Oximetry 99 07/20/23 23:42 Oxygen Delivery Method Room Air 07/20/23 21:56 MDM - OB/Uterine Contractions MDM Narrative Medical decision making narrative: Patient is a 32-year-old female presenting to emergency department for vaginal bleeding. Vaginal bleeding has slowed down the time she arrived in the emergency department. I did do a pelvic exam which shows some blood but not an overly concerning amount. I do not see active bleeding at this time. I spoke to Dr. Laguna who recommends the ultrasound and a BP in cbc into follow-up with her after the results are back. Lab work was within normal limits. She has no signs of anemia. HCG quantitative is pending at this time. Ultrasound was done and Dr. Laguna s tates it looks normal in her opinion. She recommends follow-up outpatient OB Gyne in the morning. Patient is agreeable to this plan. Lab Data Labs: Lab Results 07/20/23 07/21/23 Range/Units 22:51 00:08 WBC 8.90 (4.50-11.00) K/uL RBC 4.45 (4.00-5.20) m/uL Hgb 12.5 (12.0-16.0) gm/dL Hct 37.0 (33.0-51.0) % MCV 83 (80-100) fL MCH 28 (26-34) pg MCHC 34 (32-36) gm/dL RDW Coeff of Milad 13.3 (11.5-15.5) % Plt Count 221 (140-440) K/uL Neut % (Auto) 57.5 (42.0-72.0) % Lymph % (Auto) 32.2 (20-44) % [place] % (Auto) 6.5 (0.0-11.0) % Eos % (Auto) 3.1 (0.0-7.0) % Baso % (Auto) 0.6 (0.0-3.0) % Neut # (Auto) 5.11 (1.7-7.0) K/uL Lymph # (Auto) 2.87 (0.90-2.90) K/uL [place] # (Auto) 0.60 (0.00-0.90) K/UL Eos # (Auto) 0.28 (0.00-0.50) K/uL Baso # (Auto) 0.05 (0.00-0.30) K/uL Abs Immat Gran (auto) 0.01 (0.00-0.30) K/uL Imm/Tot Granulo (auto) 0.1 % Sodium 139 (135-149) mmol/L Potassium 3.7 (3.6-5.1) mmol/L Chloride 107 (96-114) mmol/L Carbon Dioxide 19 L (20-32) mmol/L Anion Gap 13 (7-15) mEq/L BUN 9 (5-24) mg/dL Creatinine 0.5 (0.5-1.5) mg/dL Estimated Creat Clear 146.70 Estimated GFR 129 ml/min Glucose 94 (60-115) mg/dL Calcium 9.1 (8.4-10.6) mg/dL Lab Acknowledgement Test Added Discharge Plan Discharge Clinical Impression: hemorrhage of vagina Patient Disposition: Home, Self-Care Condition: Stable Instructions: Bleeding (ED) Additional Instructions: Return to the emergency department if you develop uncontrolled pain, fevers, increased bleeding, or other concerns Call your take away attendant in the morning Activity Level: Activity as Tolerated Discharge Diet: Regular Prescriptions: No Action ascorbic acid (vitamin C) 1,000 mg tablet 1 g PO DAILY cholecalciferol (vitamin D3) 50 mcg (2,000 unit) tablet 2,000 unit PO DAILY ibuprofen 600 mg Tablet 600 mg PO Q6H PRNQty: 15 0RF lorazepam [Ativan] 0.5 mg tablet 0.5 - 1 mg PO QHS PRN (Reason: sleep) Qty: 14 0RF Follow Up/Referrals: Jyoti Cope DO [Primary Care Provider] - Stand Alone Forms: [facility] Info Instructions
[2023-07-21 00:22] VITALS: BP 135/78; PULSE 85; RESP 20; TEMP 36.7; O2SAT 99
[2023-07-21 00:23] VITALS: BP 135/78; PULSE 85; RESP 20; TEMP 36.7
[2023-07-21 02:21] LABS: HCG Quantitative* 11.64 mIU/mL
== END 2023-07-21 00:23 | disposition home or self-care (01) ==
PROVIDERS: Family Medicine; Emergency Provider Student in an Organized Health Care Education/Training Program; PCP Family Medicine
DX: O72.1 Other immediate postpartum hemorrhage (principal)
CPT/HCPCS: 36415; 76856; 80048; 84702; 85025; 94761; 99283

== ENCOUNTER 2023-07-21 11:00 | Outpatient (CLI) | payer BC, MEDICAID, SELFPAY | END 2023-07-21 11:01 | disposition home or self-care (01) | PROVIDERS: PCP Family Medicine; Visit Provider Obstetrics & Gynecology | DX: O72.1 Other immediate postpartum hemorrhage (principal); R80.9 Proteinuria, unspecified | CPT/HCPCS: 84450; 84460 ==

== ENCOUNTER 2023-07-22 13:18 | Outpatient (CLI) | payer BC, MEDICAID, SELFPAY | END 2023-07-22 13:19 | disposition home or self-care (01) | PROVIDERS: PCP Family Medicine; Visit Provider Obstetrics & Gynecology | DX: Z39.2 Encounter for routine postpartum follow-up (principal) | CPT/HCPCS: 82570; 84156; 87086 ==

== ENCOUNTER 2023-07-25 15:00 | Inpatient (IN) | payer BC, MEDICAID, SELFPAY ==
[2023-07-25 15:30] VITALS: BP 133/86; PULSE 90; RESP 16; TEMP 36.8; O2SAT 100
--- NOTE | 2023-07-25 15:40 | P.GYNHP_ITS ---
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 She is s/p / of a stillborn at 23 weeks on 07/16/23. was otherwise complicated by chronic HTN, prior , severe growth restriction and history of hemorrhage. She had an uncomplicated delivery on 07/16, placenta appeared intact and normal US prior to DC. She presented to the ED on 07/20/23 due to episode of heavy bleeding, also noted persistent abdominal/pelvic cramping and low back pain with no leukocytosis. She had a pelvic US that day with findings: Homogeneous thickening of the endometrium without evidence of focal abnormal tissue or abnormal color Doppler blood flow. No convincing evidence for retained products of conception. She was seen by Dr. Jones then Dr. Ramirez and ultimately started on augmentin for endometritis on 07/22/23. Placental culture grew out small amount of streptococcus bovis. Darius wrote in today with persistent pain. Please see my clinic note for complete details. She endorses her pain is only 10% better, at times still sever e and an associated sensation of chill and achiness once yesterday. WBC in clinic was 10.96, from 7.08 on 07/22. Recommended admission for IV antibiotic therapy in the setting of endometritis that has failed to respond adequately to PO antibiotics. She has no vaginal bleeding. Meds Home Medications and Allergies Home Medications Medication Instructions Recorded Confirmed Type cholecalciferol (vitamin D3) 50 2,000 unit PO DAILY 06/19/22 07/25/23 History mcg (2,000 unit) tablet ascorbic acid (vitamin C) 1,000 mg 1 g PO DAILY 04/11/23 07/25/23 History tablet Allergies Allergy/AdvReac Type Severity Reaction Status Date / Time oxycodone Allergy Intermediate Vomiting Verified 07/25/23 13:36 Sulfa (Sulfonamide Allergy Intermediate Hives Verified 07/25/23 13:36 Antibiotics) [facility] Active Problems (Updated 07/23/23 @ 00:01 by Background Daemon) Endometritis following delivery (Acute) ?O86.12 - Endometritis following delivery (ICD-10) Hypertension (Acute) ?I10 - Essential (primary) hypertension (ICD-10) Pelvic pain (Acute) ?R10.2 - Pelvic and perineal pain (ICD-10) hemorrhage of vagina (Acute) ?O72.1 - Other immediate hemorrhage (ICD-10) Vaginal after , delivered, current hospitalization (Acute) IUFD at 23 weeks ?O34.219 - Maternal care for unspecified type scar from previous delivery (ICD-10) Previous delivery affecting (Acute) ?O34.219 - Maternal care for unspecified type scar from previous delivery (ICD-10) Chronic hypertension affecting (Acute) ?O10.919 - Unspecified pre-existing hypertension complicating , unspecified trimester (ICD-10) IUFD (intrauterine ) (Acute) IUGR (intrauterine growth restriction) affecting care of mother (Acute) ?O36.5990 - Maternal care for other known or suspected poor growth, unspecified trimester, not applicable or unspecified (ICD-10) IUGR (intrauterine growth restriction) (Acute) Proteinuria (Acute) ?R80.9 - Proteinuria, unspecified (ICD-10) (Acute) ?Z34.90 - Encounter for supervision of normal , unspecified, unspecified trimester (ICD-10) Generalized anxiety disorder (Acute) ?F41.1 - Generalized anxiety disorder (ICD-10) Menorrhagia (Chronic) & irregular cycles ?N92.0 - Excessive and frequent menstruation with regular cycle (ICD-10) Polycystic ovary syndrome (Chronic 12/25/19) ?E28.2 - Polycystic ovarian syndrome (ICD-10) History of severe pre-eclampsia (Acute 07/2021) ?Z87.59 - Personal history of other complications of , childbirth and the puerperium (ICD-10) Depression (Chronic 06/03/12) age 17-18 thinks she did therapy ?F32.A - Depression, unspecified (ICD-10) Bunion of great toe of right foot (Chronic) ?M21.611 - Bunion of right foot (ICD-10) History of MRSA infection (Acute 07/27/17) R buttock 07/27/17 ?Z86.14 - Personal history of Methicillin resistant Staphylococcus aureus infection (ICD-10) Medical History History of tobacco use ?Z87.891 - Personal history of nicotine dependence (ICD-10) Generalized anxiety disorder ?F41.1 - Generalized anxiety disorder (ICD-10) Polycystic ovary syndrome (12/25/19) ?E28.2 - Polycystic ovarian syndrome (ICD-10) Menorrhagia ?N92.0 - Excessive and frequent menstruation with regular cycle (ICD-10) History of severe pre-eclampsia (07/2021) ?Z87.59 - Personal history of other complications of , childbirth and the puerperium (ICD-10) Depression (06/03/12) ?F32.A - Depression, unspecified (ICD-10) Bunion of great toe of right foot ?M21.611 - Bunion of right foot (ICD-10) History of MRSA infection (07/27/17) ?Z86.14 - Personal history of Methicillin resistant Staphylococcus aureus infection (ICD-10) Surgical History Hx of tonsillectomy ?Z90.89 - Acquired absence of other organs (ICD-10) Status post primary low transverse section (08/16/21) ?Z98.891 - History of uterine scar from previous surgery (ICD-10) Status post laparoscopic cholecystectomy (02/14/15) ?Z90.49 - Acquired absence of other specified parts of digestive tract (ICD- 10) Family History Father Parkinson disease Social History Narrative: SOCIAL? ? Education: 3 years of college? ? 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 ? Partner: Isaac? engaged works at [employer], something with logistics? Lives with: Isaac, son age 20 months? ? Pets: 2 dogs? ? Abuse: Denies past Safe at home with current partner ? ? ? Special Diet: avoids greasy food related to gall bladder removal? ? Ok with a blood transfusion: yes? ? Culture or christianity beliefs: denies? RISK FACTORS? ? Exercise Times/wk: 3x week. elliptical? ? Depression/Anxiety: PP anxiety? ? Previous Treatments: was started on Celexa took self off did not like how she felt. Saw her family practitioner and critical care technician? Therapy: NA MALCOLM: 0 PHQ 9: 0? ? Seat Belt Use: Routinely ? Smoking: Denies past/present? ?Smoked quit about 6 years ago smoked for about 2 years, 5-10 cigarettes per day Alcohol/day: Denies while ? when not 2-3 drinks on the weekends Caffeine: 1 cup of coffee a day? ? Drug Use: Denies past/present? What is your current living situation?: I presently have a place to live Problems where you live: no known problems In the past 12 months, utilities in danger of being shut off: no In past 12 months, lack of transportation kept you from medical appts, meetings, work, or getting things needed for daily living: no In the past 12 mos, have been you worried that your food would run out before you had money to buy more?: never true In the past 12 mos, the food you bought just didn't last and you didn't have money to buy more?: never true Smoking Status: Never smoker Second hand tobacco smoke exposure: No How often do you have a drink containing alcohol: never AUDIT-C Alcohol total score: 0 Non-prescribed substance use: denies use How often does anyone, including family, friends and others, physically hurt you : never How often does anyone, including family, friends and others, insult or talk down to you: never How often does anyone, including family, friends and others, threaten you with harm: never How often does anyone, including family, friends and others, scream or curse at you: never Little interest or pleasure in doing things: not at all Feeling down, depressed, or hopeless: not at all Reproductive Health History Date of last pap smear: 2018 would like to defer pap today, plan next visit or at 6 wk PP History of abnormal pap smear: No : 2 Para: 1 History of multiple gestations: No History of ectopic pregnancies: No History of sexually transmitted diseases: No Treatment for infertility: No 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 Narrative: General: Alert and oriented, in no acute distress Please see my clinic note for abdominal and pelvic exam details. GC/chlamydia, vaginitis panel and vaginal culture pending. Assessment and Plan Assessment and plan (1) Endometritis following delivery: Status: Acute (2) Vaginal after , delivered, current hospitalization: Problem comment: IUFD at 23 weeks Status: Acute (3) IUFD (intrauterine ): Status: Acute (4) IUGR (intrauterine growth restriction) affecting care of mother: Status: Acute (5) Pelvic pain: Status: Acute (6) Hypertension: Status: Acute Plan Ms. Mccoy is a 32yo seen for ongoing pain the setting of endometritis. She is s/p of a demised at 23 weeks, failed outpatient augmentin. - Admit for observation - Start ampicillin and gentamicin for endometritis - No indication for surgical intervention at this time given normal VS, no s ystemic signs of illness or heavy vaginal bleeding. Discussed NPO at midnight for repeat labs/exam, if she fails to demonstrate clinical improvement we may proceed to suction D&C in the morning. - Repeat CBC in the morning - Ativan 0.5mg PO QHS PRN for sleep - Pain control with ibuprofen and tylenol
[2023-07-25] MEDS: AMPICILLIN 2 GM in 0.9 % SODIUM CHLORIDE Mini-bag 100 ML IVPB ×2 (15:54→21:45)
[2023-07-25] MEDS: GENTAMICIN IVPB (16:38)
[2023-07-25] MEDS: SODIUM CHLORIDE 0.9% IVPB (16:38)
[2023-07-25 19:23] VITALS: BMI 31.5
[2023-07-25] MEDS: IBUPROFEN 600 MG TABLET PO (19:27)
[2023-07-25 21:38] VITALS: BP 127/84; PULSE 79; RESP 16; TEMP 36.8; O2SAT 98
[2023-07-25] MEDS: LORazepam 1 MG TABLET 0.5 MG PO (21:44)
[2023-07-26 02:05] VITALS: BP 126/87; PULSE 79; RESP 16; TEMP 36.6; O2SAT 98
[2023-07-26] MEDS: hydrOXYzine pamoate 25 MG CAPSULE 50 MG PO (02:24)
[2023-07-26] MEDS: AMPICILLIN 2 GM in 0.9 % SODIUM CHLORIDE Mini-bag 100 ML IVPB ×3 (03:55→15:35)
[2023-07-26 05:10] VITALS: BP 106/69; PULSE 70; RESP 16; TEMP 36.7; O2SAT 98
[2023-07-26 07:49] LABS: Basophils Absolute Auto 0.04 K/uL (0.00-0.30); Basophils Percent Auto 0.6 % (0.0-3.0); Eosinophils Absolute Auto 0.35 K/uL (0.00-0.50); Eosinophils Percent Auto 4.9 % (0.0-7.0); Hematocrit 40.7 % (33.0-51.0); Hemoglobin* 13.6 gm/dL (12.0-16.0); Immature Granulocytes Abs Auto 0.02 K/uL (0.00-0.30); Immature Granulocytes Pct Auto 0.3 %; Lymphocytes Absolute Auto 3.06 K/uL (0.90-2.90); Lymphocytes Percent Auto 42.9 % (20-44); Mean Corpuscular HGB Conc 33 gm/dL (32-36); Mean Corpuscular Hemoglobin 28 pg (26-34); Mean Corpuscular Volume 84 fL (80-100); Neutrophils Absolute Auto 3.24 K/uL (1.7-7.0); Neutrophils Percent Auto 45.3 % (42.0-72.0); Platelet Count* 215 K/uL (140-440); Red Blood Count 4.85 m/uL (4.00-5.20); White Blood Count* 7.14 K/uL (4.50-11.00)
[2023-07-26 07:50] LABS: Slide Review Reflex No
--- NOTE | 2023-07-26 09:17 | PM.GYNDS1 ---
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 She is status post vaginal delivery/ of a stillborn at 23 weeks on 07/16/23. was otherwise complicated by chronic HTN, prior , severe growth restriction and history of hemorrhage. She had an uncomplicated delivery, placenta appeared intact and normal US prior to DC. Placental culture grew out small amount of streptococcus bovis. Vitals have been stable. She has remained afebrile. Today, on hosptial day 2, she reports little cramping pain and no vaginal bleeding. She has been able to ambulate Without difficulty. She has been NPO since midnight, in the event that surgical intervention might be considered this moring. 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 Physical Exam: Vital signs: Temp Pulse Resp BP Pulse Ox O2 Del Method 98.1 F 70 16 106/69 98 Room Air 07/26/23 05:10 07/26/23 05:10 07/26/23 05:10 07/26/23 05:10 07/26/23 05:10 07/26/23 05:10 Constitutional: Constitutional: no acute distress Routine Abdominal Exam: Abdominal: Present soft; Absent distended or tenderness Comments: Fundus firm, nontender Routine Extremities Exam: Extremities: Present normal inspection; Absent calf tenderness or pedal edema Routine Psychiatric Exam: Psychiatric: Present normal affect 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 - DS: Data Data Completed and Pending Completed studies during hospitalization: Procedures Delivery of Products of Conception, External Approach (07/15/23) Introduction of Hormone into Female Reproductive, Via Natural or Artificial Opening (07/15/23) Labs on day of discharge: Labs from last 24 hours 07/26/23 06:47 WBC 7.14 RBC 4.85 Hgb 13.6 Hct 40.7 MCV 84 MCH 28 MCHC 33 RDW Coeff of Milad 13.0 Plt Count 215 Neut % (Auto) 45.3 Lymph % (Auto) 42.9 [place] % (Auto) 6.0 Eos % (Auto) 4.9 Baso % (Auto) 0.6 Neut # (Auto) 3.24 Lymph # (Auto) 3.06 H [place] # (Auto) 0.40 Eos # (Auto) 0.35 Baso # (Auto) 0.04 Abs Immat Gran (auto) 0.02 Imm/Tot Granulo (auto) 0.3 Discharge Plan Discharge Disposition: Home, Self-Care Date of Admission: 07/25/23 15:00 Attending Provider on Discharge: Jackie Rodrigues Primary Care Provider: Jyoti Cope Condition: Stable Anticipated Discharge Date/Time: 07/26/23 09:27 Discharge Medications: Continued ascorbic acid (vitamin C) 1,000 mg tablet 1 g PO DAILY cholecalciferol (vitamin D3) 50 mcg (2,000 unit) tablet 2,000 unit PO DAILY amoxicillin-pot clavulanate 875-125 mg tablet 1 tab PO Q12H 7 Days Qty: 14 0RF ibuprofen 600 mg Tablet 600 mg PO Q6H PRNQty: 15 0RF lorazepam [Ativan] 0.5 mg tablet 0.5 - 1 mg PO QHS PRN (Reason: sleep) Qty: 14 0RF Discharge Orders: Discharge Order (Routine); Ordered 07/26/23 Ordered By: Jackie Rodrigues Activity Level: Activity as Tolerated Discharge Diet: Regular Follow Up Appointments: Jyoti Cope DO [Primary Care Provider] - Forms: [facility] Info Instructions
[2023-07-26 09:30] VITALS: BP 131/90; PULSE 83; RESP 16; TEMP 36.6; O2SAT 98
[2023-07-26 15:41] VITALS: BP 129/84; PULSE 90; RESP 16; TEMP 36.6; O2SAT 98
== END 2023-07-26 17:00 | disposition home or self-care (01) | DRG 561 ==
PROVIDERS: Admitting Provider Obstetrics & Gynecology; PCP Family Medicine; Visit Provider Obstetrics & Gynecology
DX: O86.12 Endometritis following delivery (principal); I10 Essential (primary) hypertension; Z87.59 Personal history of other complications of pregnancy, childbirth and the puerperium; R10.2 Pelvic and perineal pain
CPT/HCPCS: 36415; 81513; 85025; 87070; 87205; 87481; 87491; 87591; 87661; A9270; J0290; J1580

== ENCOUNTER 2023-07-28 12:17 | Inpatient (IN) | payer BC, MEDICAID, SELFPAY ==
[2023-07-28] VITALS (17 sets, daily range): BP systolic 112–163; BP diastolic 78–100; PULSE 76–98; RESP 14–20; TEMP 36.4–37.2; O2SAT 95–98; BMI 30.8
--- NOTE | 2023-07-28 12:34 | ED.GENADULT ---
HPI - General Adult General Date Seen: 07/28/23 Chief complaint: Urogenital Problems, Female Stated complaint: Uterus infection Time Seen by Provider: 07/28/23 12:23 History of Present Illness HPI narrative: 32 yo F who is . She underwent a still at 23 weeks gestation in the and of June, a few weeks ago. She was admitted on 07/16 for induction of labor after demise. She was seen in the ER on 07/20 for vaginal bleeding. Workup showed a white count of 8.9, hemoglobin 12.5, platelet count 221. Pelvic ultrasound showed homogeneous thickening of the endometrium without evidence of focal abnormal tissue or abnormal Doppler blood flow. No convincing evidence for retained products of conception. Follow-up office visit on 07/21 WBC 7.08, hemoglobin 13.6, platelet count 248 Follow-up clinic visit on 07/22 started on Augmentin for endometritis Follow-up office visit 07/24 for worsening or persistent pain. WBC 10.9, hemoglobin 14.7, platelet count 277 She was hospitalized for IV antibiotics. Put on IV ampicillin and gentamicin. Discharged on 07/25, WBC 7.1, hemoglobin 13.6, platelet count 215 Culture from 07/24 has no growth so far. She has been discharged on Augmentin. Today she noticed that she had worsening pelvic cramping in particular in the suprapubic region on the left side and recurrent bleeding. Bleeding has largely red and small blood clots. No brownish or purulent bleeding. She is having body aches and fatigue and feels run down. No nausea or vomiting. She has had a couple of loose stools which she attributes to the Augmentin but not really diarrhea. Urination has been normal. She has not had a fever but she has noted some chills off and on since last week. Overall with her bleeding and cramping she feels similar or perhaps slightly worse, than when she was hospitalized last Friday. Related Data Home Medications Medication Instructions Recorded Confirmed cholecalciferol (vitamin D3) 50 2,000 unit PO DAILY 06/19/22 07/28/23 mcg (2,000 unit) tablet ascorbic acid (vitamin C) 1,000 mg 1 g PO DAILY 04/11/23 07/28/23 tablet Previous Rx's Medication Instructions Recorded ibuprofen 600 mg tablet 600 mg PO Q6H PRN #15 tabs 07/16/23 lorazepam 0.5 mg tablet (Ativan) 0.5 - 1 mg (1 - 2 x 0.5 mg) PO QHS 07/16/23 PRN sleep #14 tabs amoxicillin 875 mg-potassium 1 tab PO Q12H 7 days #14 tabs 07/22/23 clavulanate 125 mg tablet Allergies Allergy/AdvReac Type Severity Reaction Status Date / Time oxycodone Allergy Intermediate Vomiting Verified 07/28/23 12:22 Sulfa (Sulfonamide Allergy Intermediate Hives Verified 07/28/23 12:22 Antibiotics) PFSH PFSH Medical History History of tobacco use ?Z87.891 - Personal history of nicotine dependence (ICD-10) Generalized anxiety disorder ?F41.1 - Generalized anxiety disorder (ICD-10) Polycystic ovary syndrome (12/25/19) ?E28.2 - Polycystic ovarian syndrome (ICD-10) Menorrhagia ?N92.0 - Excessive and frequent menstruation with regular cycle (ICD-10) History of severe pre-eclampsia (07/2021) ?Z87.59 - Personal history of other complications of , childbirth and the puerperium (ICD-10) Depression (06/03/12) ?F32.A - Depression, unspecified (ICD-10) Bunion of great toe of right foot ?M21.611 - Bunion of right foot (ICD-10) History of MRSA infection (07/27/17) ?Z86.14 - Personal history of Methicillin resistant Staphylococcus aureus infection (ICD-10) Surgical History Hx of tonsillectomy ?Z90.89 - Acquired absence of other organs (ICD-10) Status post primary low transverse section (08/16/21) ?Z98.891 - History of uterine scar from previous surgery (ICD-10) Status post laparoscopic cholecystectomy (02/14/15) ?Z90.49 - Acquired absence of other specified parts of digestive tract (ICD-10) Family History Father Parkinson disease Social History Narrative: SOCIAL? ? Education: 3 years of college? ? 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 ? Partner: Isaac? engaged works at [employer], something with logistics? Lives with: Isaac, son age 20 months? ? Pets: 2 dogs? ? Abuse: Denies past Safe at home with current partner ? ? ? Special Diet: avoids greasy food related to gall bladder removal? ? Ok with a blood transfusion: yes? ? Culture or confucianism beliefs: denies? RISK FACTORS? ? Exercise Times/wk: 3x week. elliptical? ? Depression/Anxiety: PP anxiety? ? Previous Treatments: was started on Celexa took self off did not like how she felt. Saw her family practitioner and rn critical care? Therapy: NA MALCOLM: 0 PHQ 9: 0? ? Seat Belt Use: Routinely ? Smoking: Denies past/present? ?Smoked quit about 6 years ago smoked for about 2 years, 5-10 cigarettes per day Alcohol/day: Denies while ? when not 2-3 drinks on the weekends Caffeine: 1 cup of coffee a day? ? Drug Use: Denies past/present? What is your current living situation?: I presently have a place to live Problems where you live: no known problems In the past 12 months, utilities in danger of being shut off: no In past 12 months, lack of transportation kept you from medical appts, meetings, work, or getting things needed for daily living: no In the past 12 mos, have been you worried that your food would run out before you had money to buy more?: never true In the past 12 mos, the food you bought just didn't last and you didn't have money to buy more?: never true Smoking Status: Never smoker Second hand tobacco smoke exposure: No How often do you have a drink containing alcohol: never AUDIT-C Alcohol total score: 0 Non-prescribed substance use: denies use How often does anyone, including family, friends and others, physically hurt you: never How often does anyone, including family, friends and others, insult or talk down to you: never How often does anyone, including family, friends and others, threaten you with harm: never How often does anyone, including family, friends and others, scream or curse at you: never Little interest or pleasure in doing things: not at all Feeling down, depressed, or hopeless: not at all Exam Narrative: Exam Narrative: Constitutional: Appears well-developed and well-nourished. Alert. Conversant. Non toxic. HENT: Head: Atraumatic. Nose: Nose normal. Mouth/Throat: Oral mucosa is clear and moist. no trismus. Pharynx normal. Tonsils symmetric. No tonsillar enlargement, erythema, or exudate. Eyes: Conjunctivae normal. EOM normal. Pupils equal, round, and reactive to light. No scleral icterus. Neck: Normal range of motion. Neck supple. No tracheal deviation present. Cardiovascular: Normal rate, regular rhythm. No gallop. No friction rub. No murmur heard. Symmetric radial artery pulses Pulmonary/Chest: Effort normal. No stridor. No respiratory distress. No wheezes. No rales. No rhonchi . No tenderness. Abdominal: Soft. Bowel sounds normal. No distension. No mass. Suprapubic and left lower quad tenderness. No right lower quadrant tenderness. No CVA tenderness. No rebound. No guarding. Musculoskeletal: RUE: Normal range of motion. No tenderness. No deformity LUE: Normal range of motion. No tenderness. No deformity RLE: Normal range of motion. No edema. No tenderness. No deformity LLE: Normal range of motion. No edema. No tenderness. No deformity Neurological: Alert and oriented to person, place, and time. Normal strength. CN II-VII intact. No sensory deficit. GCS eye subscore is 4. GCS verbal subscore is 5. GCS motor subscore is 6. Normal coordination Skin: Skin is warm and dry. No rash noted. No pallor. Normal capillary refill. Psychiatric: Normal mood. Normal affect. Const: Vital Signs, click to edit/add: Vital Signs - 24 hr 07/28/23 12:23 Temperature 98.9 F Pulse Rate [Pulse Oximeter] 98 Respiratory Rate 16 Blood Pressure [Ri ght Upper Arm] 139/88 Pulse Oximetry 97 Oxygen Delivery Me thod Room Air Course Reevaluation(s) Reevaluation #1: Recheck-urinalysis back showing pyuria, hematuria but also squames suggesting probable contamination. Will repeat clean-catch urine. Also ultrasound results are delayed. Contacted radiology department to find out cause of delay Reevaluation #2: Recheck-updated patient and her fiance about results. Reevaluation #3: Recheck-discussed with Dr. Jones, Ob. She will come to the ER to evaluate the patient. Vital Signs Vital signs: Initial Vital Signs Temperature 98.9 F 07/28/23 12:23 Temperature Source Temporal Artery Scan 07/28/23 12:23 Pulse Rate 98 07/28/23 12:23 Respiratory Rate 16 07/28/23 12:23 Blood Pressure 139/88 07/28/23 12:23 Blood Pressure Mean 105 07/28/23 12:23 Blood Pressure Position Sitting 07/28/23 12:23 Pulse Oximetry 97 07/28/23 12:23 Oxygen Delivery Method Room Air 07/28/23 12:23 Vital Signs Temperature 98.9 F 07/28/23 12:23 Pulse Rate 98 07/28/23 12:23 Respiratory Rate 16 07/28/23 12:23 Blood Pressure 139/88 07/28/23 12:23 Pulse Oximetry 97 07/28/23 12:23 Oxygen Delivery Method Room Air 07/28/23 12:23 Temperature 98.9 F 07/28/23 12:23 Pulse Rate 98 07/28/23 12:23 Respiratory Rate 16 07/28/23 12:23 Blood Pressure 139/88 07/28/23 12:23 Pulse Oximetry 97 07/28/23 12:23 Oxygen Delivery Method Room Air 07/28/23 12:23 Medications Administered Medications: Discontinued Medications Generic Name Dose Route Start Last Admin Trade Name Freq PRN Reason Stop Dose Admin Sodium Chloride 1,000 mls @ 1,000 mls/hr 07/28/23 13:00 07/28/23 15:14 0.9 % Sodium Chloride 1000 Ml IV 07/28/23 13:59 Infused .Q1H CHIRAG Infusion Ketorolac Tromethamine 15 mg 07/28/23 13:00 07/28/23 13:28 Ketorolac 15 Mg/Ml Inj IVP 07/28/23 13:01 15 mg ONCE ONE Administration Medical Decision Making MDM Narrative Medical decision making narrative: Pleasant 32-year-old female who is with a recent intrauterine demise and subsequent induction of labor with the delivery of the stillborn fetus. She has had a complicated course complicated by vaginal bleeding as well as malaise, suprapubic and uterine tenderness, and is already on antibiotics for suspected endometritis. She has been on Augmentin since last week and had 24 hours in the hospital with ampicillin/gentamicin but is not improving. She returns to the ER today with recurrent bleeding and ongoing body aches and malaise. Although clinically she does not have overt endometritis (no fever, no septic shock, no frankly purulent discharge), we were still concerned about possible a intrauterine infection. She has already had 1 and pelvic ultrasound that showed thickened endometrial lining but no definite other retained products of conception. Repeat ultrasound today shows somewhat reduced thickness of the endometrial lining but now some new material within the uterus that could be a endometrial hematoma (verses retained POC). Labs shows normal WBC and normal hemoglobin. First Urinalysis shows suspicious for possible pyuria, bacteria but also signs of contamination. Will repeat clean-catch urine. Clinically she is not having dysuria, urgency, frequency or other symptoms of UTI. No flank pain to suggest pyelonephritis. Second urinalysis looks normal. At this point I have low suspicion for other intra-abdominal pathology. Would hold off on CT scan given low likelihood of appendicitis, colitis, diverticulitis. She has been having a few loose stools since starting on the Augmentin. Suspect this is probably antibiotic related diarrhea but I have ordered a C diff test as well. Ob will evaluate the patient likely will take her to the OR for evacuation of the endometrial contents. Lab Data Labs: Lab Results 07/28/23 07/28/23 07/28/23 Range/Units 13:15 13:31 16:12 WBC 9.22 (4.50-11.00) K/uL RBC 5.16 (4.00-5.20) m/uL Hgb 14.3 (12.0-16.0) gm/dL Hct 43.6 (33.0-51.0) % MCV 85 (80-100) fL MCH 28 (26-34) pg MCHC 33 (32-36) gm/dL RDW Coeff of [place]ad 13.0 (11.5-15.5) % Plt Count 256 (140-440) K/uL Neut % (Auto) 64.4 (42.0-72.0) % Lymph % (Auto) 29.1 (20-44) % [place] % (Auto) 3.9 (0.0-11.0) % Eos % (Auto) 2.1 (0.0-7.0) % Baso % (Auto) 0.4 (0.0-3.0) % Neut # (Auto) 5.94 (1.7-7.0) K/uL Lymph # (Auto) 2.68 (0.90-2.90) K/uL [place] # (Auto) 0.40 (0.00-0.90) K/UL Eos # (Auto) 0.19 (0.00-0.50) K/uL Baso # (Auto) 0.04 (0.00-0.30) K/uL Abs Immat Gran (auto) 0.01 (0.00-0.30) K/uL Imm/Tot Granulo (auto) 0.1 % Sodium 140 (135-149) mmol/L Potassium 3.6 (3.6-5.1) mmol/L Chloride 106 (96-114) mmol/L Carbon Dioxide 22 (20-32) mmol/L Anion Gap 12 (7-15) mEq/L BUN 12 (5-24) mg/dL Creatinine 0.6 (0.5-1.5) mg/dL Estimated Creat Clear 122.25 Estimated GFR 123 ml/min Glucose 85 (60-115) mg/dL Calcium 9.8 (8.4-10.6) mg/dL Urine Color Yellow Yellow (Yellow) Urine Appearance Clear Clear (Clear) Urine pH 6.0 6.5 (5.0-8.5) Ur Specific [place] 1.010 1.015 (1.000-1.030) Urine Protein Negative Negative (Negative) Urine Glucose (UA) Negative Negative (Negative) Urine Ketones Negative Negative (Negative) Urine Blood 3+ A 2+ A (Negative) Urine Nitrite Negative Negative (Negative) Urine Bilirubin Negative Negative (Negative) Urine Urobilinogen 0.2 0.2 (0.2-1.0) Ur Leukocyte Esterase 1+ A Negative (Negative) Urine RBC 25-50 A (0-2) Urine WBC 10-25 A (0-5) Ur Squamous Epith Cells Moderate A (None-Few) Urine Bacteria Few A (None) Discharge Plan Discharge Clinical Impression: Acute endometritis, Vaginal bleeding Patient Disposition: XFER to OR Follow Up/Referrals: Jyoti Cope DO [Primary Care Provider] - Stand Alone [facility]: [facility] Info Inst[facility]
--- NOTE | 2023-07-28 13:00 | US_ITS ---
Final Report Patient: ETIENNE CAMARILLO Facility:?[facility] Patient ID:?[id number] Site Patient ID:?[id number]. Site :?1990 Study:?US Pelvis TV-07/28/2023 2:20:57 PM Ordering Physician:?ED Final Report: INDICATION: Uterine bleeding and cramping, stillborn delivery on July 16. TECHNIQUE: Ultrasound limited pelvis transvaginal for better assessment or to better visualize the endometrium. Real-time sonographic images were obtained with static images saved for review. COMPARISON: Obstetric ultrasound 07/20/2023 FINDINGS: Endometrium: Transvaginal imaging was performed to better evaluate the endometrium. Endometrial thickness measures 12 mm. Hypoechoic avascular material within the endometrial cavity measuring up to 4.0 x 0.9 x 2.7 centimeters. IMPRESSION: Endometrial thickness of 12 millimeters which is decreased in size compared to the prior examination although with hypoechoic material without vascularity suggestive of endometrial hematoma. Dictated by Andriy Torres MD @ 07/28/2023 3:47:03 PM (Electronic Signature)
[2023-07-28] MEDS: 0.9 % SODIUM CHLORIDE 1000 ml 1,000 ML IV (13:28)
[2023-07-28] MEDS: KETOROLAC 15 MG/ML inj IVP (13:28)
[2023-07-28 13:31] LABS: Appearance Urine Clear (Clear); Bilirubin Urine Negative (Negative); Blood Urine 3+ (Negative); Color Urine Yellow (Yellow); Glucose Urine Negative (Negative); Ketones Urine Negative (Negative); Leukocyte Esterase Urine 1+ (Negative); Nitrite Urine Negative (Negative); Protein Urine Negative (Negative); Urobilinogen Urine 0.2 (0.2-1.0)
[2023-07-28 13:39] LABS: Bacteria Urine Few; RBC Urine 25-50 (0-2); Squamous Epithelial Cell Urine Moderate (None-Few)
[2023-07-28 14:00] LABS: Basophils Absolute Auto 0.04 K/uL (0.00-0.30); Basophils Percent Auto 0.4 % (0.0-3.0); Eosinophils Absolute Auto 0.19 K/uL (0.00-0.50); Eosinophils Percent Auto 2.1 % (0.0-7.0); Hematocrit 43.6 % (33.0-51.0); Hemoglobin* 14.3 gm/dL (12.0-16.0); Immature Granulocytes Abs Auto 0.01 K/uL (0.00-0.30); Immature Granulocytes Pct Auto 0.1 %; Lymphocytes Absolute Auto 2.68 K/uL (0.90-2.90); Lymphocytes Percent Auto 29.1 % (20-44); Mean Corpuscular HGB Conc 33 gm/dL (32-36); Mean Corpuscular Hemoglobin 28 pg (26-34); Mean Corpuscular Volume 85 fL (80-100); Monocytes Percent Auto 3.9 % (0.0-11.0); Neutrophils Absolute Auto 5.94 K/uL (1.7-7.0); Neutrophils Percent Auto 64.4 % (42.0-72.0); Platelet Count* 256 K/uL (140-440); Red Blood Count 5.16 m/uL (4.00-5.20); White Blood Count* 9.22 K/uL (4.50-11.00)
[2023-07-28 14:01] LABS: Chloride* 106 mmol/L (96-114); Potassium* 3.6 mmol/L (3.6-5.1); Sodium* 140 mmol/L (135-149)
[2023-07-28 14:04] LABS: Anion Gap 12 mEq/L (7-15); Blood Urea Nitrogen* 12 mg/dL (5-24); Carbon Dioxide* 22 mmol/L (20-32); Creatinine* 0.6 mg/dL (0.5-1.5); Est. Creatinine Clearance* 122.25; Estimated Glomerular Filt Rate 123 ml/min; Glucose* 85 mg/dL (60-115); Slide Review Reflex No
[2023-07-28 14:05] LABS: Calcium* 9.8 mg/dL (8.4-10.6)
[2023-07-28 16:22] LABS: Appearance Urine Clear (Clear); Bilirubin Urine Negative (Negative); Blood Urine 2+ (Negative); Color Urine Yellow (Yellow); Glucose Urine Negative (Negative); Ketones Urine Negative (Negative); Leukocyte Esterase Urine Negative (Negative); Nitrite Urine Negative (Negative); Protein Urine Negative (Negative); Specific Gravity Urine 1.015 (1.000-1.030); Urobilinogen Urine 0.2 (0.2-1.0); pH Urine 6.5 (5.0-8.5)
--- NOTE | 2023-07-28 17:01 | P.GYNCN_ITS ---
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 She underwent an IOL for an IUFD at a 23 weeks gestation on July 16, 2023. She had a very prolonged course complicated by abnormal uterine bleeding and endometritis. She was seen in the ER on 07/20 for vaginal bleeding. Workup showed a white count of 8.9, hemoglobin 12.5, platelet count 221. Pelvic ultrasound showed homogeneous thickening of the endometrium without evidence of focal abnormal tissue or abnormal Doppler blood flow. No convincing evidence for retained products of conception. Follow-up office visit on 07/21 with myself and labs were improved (WBC 7.08, hemoglobin 13.6, platelet count 248). She had a follow-up clinic visit on 07/22 started on Augmentin for endometritis. She had a follow-up office visit 07/24 for worsening or persistent pain. WBC 10.9, hemoglobin 14.7, platelet count 277 and then she was hospitalized for IV ampicillin and gentamicin. She was subsequently discharged on 07/25 as she felt clinically improve and her labs are stable (WBC 7.1, hemoglobin 13.6, platelet count 215). Culture from 07/24 has no growth so far. She has been discharged on Augmentin and has 3 doses left. She presented to the emergency room today due to worsening pelvic cramping and intermittent recurrent bleeding. She would have episode of heavy bleeding and cessation only to restart at random times. She is having body aches and fatigue and feels run down. No nausea or vomiting. She has had a couple of loose stools which she attributes to the Augmentin but not really diarrhea. Urination has been normal. She has not had a fever but she has noted some chills off and on since last week. She reports significant relief with administration of IV ampicillin and gentamicin, but all her symptoms return shortly after discharge and has worsened. Overall with her bleeding and cramping she feels similar or perhaps slightly worse but she is very concerned with her prolonged course. Pelvic ultrasound: prelim report - heterogenous well circumscribed endometrium, possible blood products/avascular cc:: CC: PFSH [facility] Medical History History of tobacco use ?Z87.891 - Personal history of nicotine dependence (ICD-10) Generalized anxiety disorder ?F41.1 - Generalized anxiety disorder (ICD-10) Polycystic ovary syndrome (12/25/19) ?E28.2 - Polycystic ovarian syndrome (ICD-10) Menorrhagia ?N92.0 - Excessive and frequent menstruation with regular cycle (ICD-10) History of severe pre-eclampsia (07/2021) ?Z87.59 - Personal history of other complications of , childbirth and the puerperium (ICD-10) Depression (06/03/12) ?F32.A - Depression, unspecified (ICD-10) Bunion of great toe of right foot ?M21.611 - Bunion of right foot (ICD-10) History of MRSA infection (07/27/17) ?Z86.14 - Personal history of Methicillin resistant Staphylococcus aureus infection (ICD-10) Surgical History Hx of tonsillectomy ?Z90.89 - Acquired absence of other organs (ICD-10) Status post primary low transverse section (08/16/21) ?Z98.891 - History of uterine scar from previous surgery (ICD-10) Status post laparoscopic cholecystectomy (02/14/15) ?Z90.49 - Acquired absence of other specified parts of digestive tract (ICD- 10) Family History Father Parkinson disease Social History Narrative: SOCIAL? ? Education: 3 years of college? ? 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 ? Partner: Isaac? engaged works at [employer], something with logistics? Lives with: Isaac, son age 20 months? ? Pets: 2 dogs? ? Abuse: Denies past Safe at home with current partner ? ? ? Special Diet: avoids greasy food related to gall bladder removal? ? Ok with a blood transfusion: yes? ? Culture or advent beliefs: denies? RISK FACTORS? ? Exercise Times/wk: 3x week. elliptical? ? Depression/Anxiety: PP anxiety? ? Previous Treatments: was started on Celexa took self off did not like how she felt. Saw her family practitioner and lawn care worker? Therapy: NA MALCOLM: 0 PHQ 9: 0? ? Seat Belt Use: Routinely ? Smoking: Denies past/present? ?Smoked quit about 6 years ago smoked for about 2 years, 5-10 cigarettes per day Alcohol/day: Denies while ? when not 2-3 drinks on the weekends Caffeine: 1 cup of coffee a day? ? Drug Use: Denies past/present? What is your current living situation?: I presently have a place to live Problems where you live: no known problems In the past 12 months, utilities in danger of being shut off: no In past 12 months, lack of transportation kept you from medical appts, meetings, work, or getting things needed for daily living: no In the past 12 mos, have been you worried that your food would run out before you had money to buy more?: never true In the past 12 mos, the food you bought just didn't last and you didn't have money to buy more?: never true Smoking Status: Never smoker Second hand tobacco smoke exposure: No How often do you have a drink containing alcohol: never AUDIT-C Alcohol total score: 0 Non-prescribed substance use: denies use How often does anyone, including family, friends and others, physically hurt you : never How often does anyone, including family, friends and others, insult or talk down to you: never How often does anyone, including family, friends and others, threaten you with harm: never How often does anyone, including family, friends and others, scream or curse at you: never Little interest or pleasure in doing things: not at all Feeling down, depressed, or hopeless: not at all Meds Home Medications and Allergies Home Medications Medication Instructions Recorded Confirmed Type cholecalciferol (vitamin D3) 50 2,000 unit PO DAILY 06/19/22 07/28/23 History mcg (2,000 unit) tablet ascorbic acid (vitamin C) 1,000 mg 1 g PO DAILY 04/11/23 07/28/23 History tablet Allergies Allergy/AdvReac Type Severity Reaction Status Date / Time oxycodone Allergy Intermediate Vomiting Verified 07/28/23 12:22 Sulfa (Sulfonamide Allergy Intermediate Hives Verified 07/28/23 12:22 Antibiotics) MANAGED [employer]ITY SALES CONSULTANT - Exam Physical Exam: Vital signs: Temp Pulse Resp BP Pulse Ox O2 Del Method 98.9 F 98 16 139/88 97 Room Air 07/28/23 12:23 07/28/23 12:23 07/28/23 12:23 07/28/23 12:23 07/28/23 12:07/28/23 12:23 Narrative: Physical exam: General: No acute distress Psych: Alert and oriented x4, full affect HEENT: Normocephalic, atraumatic Lungs: Unlabored breathing Abdomen: Tender at midline. No rebound, or guarding Skin: No lesions or rashes Pelvic exam: Defer to OR MANAGED SECUR[employer] SALES CONSULTANT - Results Labs Labs: Short CBC 07/28/23 Range/Units 13:31 WBC 9.22 (4.50-11.00) K/uL Hgb 14.3 (12.0-16.0) gm/dL Hct 43.6 (33.0-51.0) % Plt Count 256 (140-440) K/uL BMP 07/28/23 13:31 Sodium 140 Potassium 3.6 Chloride 106 Carbon Dioxide 22 BUN 12 Creatinine 0.6 Glucose 85 Calcium 9.8 Urine 07/28/23 07/28/23 Range/Units 13:15 16:12 Urine Color Yellow Yellow (Yellow) Urine Appearance Clear Clear (Clear) Urine pH 6.0 6.5 (5.0-8.5) Ur Specific [place] 1.010 1.015 (1.000-1.030) Urine Protein Negative Negative (Negative) Urine Glucose (UA) Negative Negative (Negative) Assessment and Plan Assessment and plan (1) Vaginal bleeding: Status: Acute (2) Acute endometritis: Status: Acute (3) Pelvic pain: Status: Acute Plan - She was consented for operative hysteroscopy, dilation and curettage (either direct and/or suction). We discussed the risks, benefits, and alternatives. I want to directly visualize her endometrial cavity for as much clarity as possible due to her prolonged/complicated course. Complications with hysteroscopy, D&C: Most common is perforation 0.12-1.61% (this is more common with uterine anomalies), infection <1%, hemorrhage 0.5%, fluid overload 0.2%, air embolism <0.1%. - I reviewed how dilation and curettage procedure is performed. I will attempt this under direct visualization using the hysteroscope. If not feasible due to bleeding, I will switch do suction dilation and curettage. This is done in the operating room with conscious sedation and paracervical block (usually). The cervix is dilated open, a plastic curette is advanced into the uterus and connected to a vacuum. The vacuum then pulls the out of the uterus. All tissue removed from the uterus is sent to the lab for testing to verify that tissue was obtained. Ultrasound guidance is generally not required. Risks with a suction curettage include injury to cervix or uterus -. Infection in the uterus resulting in endometritis -. Unfortunately, she already has this diagnosis and currently taking antibiotics PO. She will receive antibiotics in the IV to prevent further infection. Chance of Asherman syndrome resulting in inability to conceive a in the future: 05/2499. Chance of anesthesia complications are extremely rare: Less than 1/100,000 especially with negative personal or family history of anesthesia issues. Expected recovery: Mild cramping after miscarriage/surgery usually controlled with [id number] extra-strength Tylenol and ibuprofen. Only restriction for activity postoperatively/after a miscarriage is nothing vaginally for 2 weeks. She should expect to have some bleeding for 2-4 weeks after surgery. All of her and Isaac's (spouse) questions were answered. After reviewing risk, benefits and alternatives, patients desires to proceed with the above procedures. Patient's blood type: AB+
[2023-07-28] MEDS: LACTATED RINGERS 1000 ML 1,000 ML 125 ML IV (17:35)
[2023-07-28] MEDS: miSOPROStoL 800 MCG/4 TABLET PR (18:50)
--- NOTE | 2023-07-28 19:17 | P.ANES_ITS ---
Anesthesia Charges Start Date/Time Anesthesia Start Date: 07/28/23 Anesthesia Start Time: 17:35 Stop Date/Time Anesthesia Stop Date: 07/28/23 Anesthesia Stop Time: 19:06 Summary Emergency: FORENSIC ARTIST
[2023-07-28] MEDS: ONDANSETRON 2 MG/ML inj 4 MG IVP (20:17)
[2023-07-28] MEDS: GENTAMICIN 340 MG in 0.9 % SODIUM CHLORIDE 100 ml 100 ML 108.5 MG IVPB (21:04)
[2023-07-28] MEDS: AMPICILLIN 2 GM in 0.9 % SODIUM CHLORIDE Mini-bag 100 ML IVPB (22:20)
--- NOTE | 2023-07-28 22:32 | W.PM.GYNPROC ---
Procedure Note Time Seen by Provider: 22:32 Date of procedure: 07/28/23 Procedure Description: HYSTEROSCOPY, DILATION AND CURETTAGE PREOPERATIVE DIAGNOSIS: 1. endometritis 2. Possible retained placenta POSTOPERATIVE DIAGNOSIS: 1. endometritis 2. Retained placenta, concern for possible placenta accreta PROCEDURE: 1. EUA 2. Hysteroscopy with dilation and curettage using TruClear incisor 3. Suction dilation and curettage SURGEON: Keely Jones MD ANESTHESIA: MAC and local FINDINGS: 1. A 6 week size mobile anteverted uterus with small, approximately 1 cm posterior fibroid palpated on EUA, no adnexal masses on EUA 2. Normal external genitalia, cervix is slightly dilated with some clots protruding from cervical canal. Otherwise normal appearing cervix 3. On hysteroscopy, necrotic appearing retained placenta close to the internal cervical os. The retained placenta appeared to be attached anteriorly and right laterally. Very vascular as brisk bleeding is expressed when curetting with soft tissue incisor. Normal bilateral tubal ostia is. Normal fundus, posterior, and left uterine wall. FLUIDS: 700 cc ESTIMATED BLOOD LOSS: 250 cc URINE OUTPUT: 55 cc COMPLICATIONS: Increased bleeding ANTIBIOTIC: IV ampicillin and gentamicin SPECIMEN: 1. Retained placenta INDICATIONS: Darius is a 32 yo G2 P 1011, with diagnosis of endometritis and abnormal uterine bleeding, likely secondary to retained placenta. DESCRIPTION OF PROCEDURE: The patient was taken to the operating room where MAC was administered. She was prepared and draped in normal sterile fashion in the dorsal lithotomy position in yellow fin stirrups, taking care to avoid lower extremity hyperextension, hyperflexion or compression. A surgical time-out was performed with the entire operative staff per protocol. EUA revealed the above findings. Bladder was drained with a red rubber. A speculum was placed in the patient's vagina and a long Allis was placed on the anterior lip of the cervix. The paracervical block was placed using 1% Lidocaine with epinephrine, 5 mL was injected at the 4 and 8 o'clock positions on the cervix. The cervix accommodated a Hegar 6 without progressive dilation. The uterus sounded to 9 cm. The Truclear hysteroscope was advanced into the uterus. A diagnostic hysteroscopy was performed with normal saline as the insufflation medium. Findings are stated above. The [employer] fluid management system malfunctions several times during the procedure. It was unable to calculate fluid deficient. The bilingual inside sales representative for the TruClear was call to assist over the phone. After resetting the machine, the Truclear incisor was then advanced through the camera after uterine cavity integrity was assured. The curettage was performed with the incisor but there was frequent brisk bleeding every time the placental bed with disrupted. The instruments would have to be removed for me to perform bimanual message. She was given 0.2 mg Methergine x 1 the first time that brisk bleeding was noted. Bleeding improved with Methergine and bimanual massage. Hysteroscopy and soft tissue incisor was reinserted to trying continue with curetting under direct visualization. Again, brisk bleeding occurred with the destruction of the placental bed. 0.25 mg Hemabate x 1 was given. Decision was made to finish the rest of the procedure with suction curettage. The incisor and hysteroscope were then removed. Saline deficit at the end of the procedure 875 mL. Total saline used 3372 mL. A size 7 suction curettage was then inserted under direct visualization. The uterus was then gently suction curetted and rotated to clear the uterus of products. This was performed until a gritty texture was noted and the uterus was cleared of all remaining products. There was minimal bleeding noted after the suction curettage was removed. The long Allis was removed from the anterior lip of the cervix and excellent hemostasis was noted. All instruments were removed. 800 mcg of misoprostol was placed rectally. Debrief performed per protocol and specimen reviewed. I asked the back bristol [email or web address] management system be interrogated. Specimen was sent to pathology. I am concerned for abnormal placentation due to the amount of tissue inside the uterus, location (near the internal os and anterior/right lateral - possible adherent to the old hysterotomy scar), and brisk bleeding that occurred with disruption of the tissue. She has strong desire to maintain fertility. She has minimal bleeding and tolerated the procedure well. Sponge, lap and needle counts were correct x 2. The patient was taken to the recovery room in stable condition. She will be admitted overnight for IV antibiotics (2 g of ampicillin and 5 milligrams/kilograms of gentamicin x1) and monitoring due to increased bleeding during that surgical procedure.
[2023-07-29] VITALS (7 sets, daily range): BP systolic 122–129; BP diastolic 67–93; PULSE 74–87; RESP 12–16; TEMP 36.7–37; O2SAT 98
[2023-07-29] MEDS: KETOROLAC 15 MG/ML inj IVP ×5 (00:04→23:54)
[2023-07-29 01:09] LABS: C.Difficile Negative (Negative); CDIFFEPI 027 PRESUMPTIVE NEGATIVE (Negative)
[2023-07-29] MEDS: DIPHENOXYLATE-ATROP 2.5-0.025 TABLET 1 TAB PO (01:15)
[2023-07-29] MEDS: hydrOXYzine pamoate 25 MG CAPSULE PO (01:17)
[2023-07-29] MEDS: ACETAMINOPHEN 500 MG TABLET 1000 MG PO ×4 (01:19→21:21)
--- NOTE | 2023-07-29 05:24 | PC.NURSE ---
Pt rested well during night, bleeding minimal and decreasing as night went on. weighed pads during shift for EBL, currently at 50ml. tolerating PO intake, denies nausea. voiding without difficulty. cramping to lower abdomen 3-5/10, controlled with prn medications. supporting johann otero, at bedside.
[2023-07-29] MEDS: SODIUM CHLORIDE 0.9 % (FLUSH) 10 ML SYRINGE 5 ML IVF ×2 (05:50→09:31)
[2023-07-29 06:23] LABS: Basophils Absolute Auto 0.03 K/uL (0.00-0.30); Basophils Percent Auto 0.4 % (0.0-3.0); Eosinophils Absolute Auto 0.21 K/uL (0.00-0.50); Eosinophils Percent Auto 2.6 % (0.0-7.0); Hematocrit 36.1 % (33.0-51.0); Hemoglobin* 12.1 gm/dL (12.0-16.0); Immature Granulocytes Abs Auto 0.01 K/uL (0.00-0.30); Immature Granulocytes Pct Auto 0.1 %; Lymphocytes Absolute Auto 3.03 K/uL (0.90-2.90); Lymphocytes Percent Auto 38.1 % (20-44); Mean Corpuscular HGB Conc 34 gm/dL (32-36); Mean Corpuscular Hemoglobin 28 pg (26-34); Mean Corpuscular Volume 85 fL (80-100); Neutrophils Absolute Auto 4.27 K/uL (1.7-7.0); Neutrophils Percent Auto 53.8 % (42.0-72.0); Platelet Count* 196 K/uL (140-440); Red Blood Count 4.27 m/uL (4.00-5.20); White Blood Count* 7.95 K/uL (4.50-11.00)
[2023-07-29 06:52] LABS: Slide Review Reflex No
[2023-07-29 07:31] LABS: HCG Qualitative Serum* Negative (Negative)
[2023-07-29 08:21] LABS: Alanine Aminotransferase* 12 U/L (4-35); Aspartate Amino Transferase* 23 U/L (12-35)
--- NOTE | 2023-07-29 08:27 | P.GYNPN_ITS ---
MATERIAL SCHEDULER - A/P Assessment and plan (1) Vaginal bleeding: Status: Acute (2) Acute endometritis: Status: Acute (3) Pelvic pain: Status: Resolved Plan Patient today states to be doing well, no new episode of heavy bleeding and pain is under control. Patient does not describe pain as significantly improved. We discussed hysteroscopy findings, suspicion for retained products due to abnormal placentation with super imposed infection. I discussed her case this morning over the phone with Dr. Yara PARADA. She recommends we continue IV antibiotic therapy for another 24 hours, that we trend HCG levels and continue to monitor clinically. Patient feels comfortable with this plan. I also recommend today for us to start Procardia ER 30 mg daily as her blood pressures have now ranged mostly in the 140-150s systolics. Labs so far w/o abnormality concerning for severe hypertension/preeclampsia disorder of /. Will continue close monitoring. Postoperative Procedures: Procedures Operation Date: 07/28/23 18:10 Actual Procedure Side Surgeon p Hysteroscopy D&C Truclear, suction curettage Not Applicable Keely Hakan Jones MD Time Spent With Patient Time: Total time spent is greater than 50% in coordination of care (as documented) at patient's floor/unit and/or counseling patient: Time with patient: less than 15 minutes MATERIAL SCHEDULER- PN:Subj Post-Op Subjective Time Seen by Provider: 07:30 Date Seen: 07/29/23 Post Operative Details: Post-operative day number 1: status post 1, s/p hysteroscopy, dilation and suction curettage Subjective: patient reports feeling better MATERIAL SCHEDULER-PN: Obj Exam Physical Exam: Vital signs: Temp Pulse Resp BP Pulse Ox O2 Del Method 98.6 F 83 16 122/93 H 98 Room Air 07/29/23 01:45 07/29/23 01:45 07/29/23 01:45 07/29/23 01:45 07/29/23 01:45 07/29/23 01:45 Narrative: VITAL SIGNS: As noted above. GENERAL APPEARANCE: Alert, cooperative female in no acute distress. MOOD & AFFECT: Normal. ABDOMEN: Soft, non-distended and nontender. : Minimal spotting. EXTREMITIES: Nonedematous. Well perfused. Nontender. MATERIAL SCHEDULER - PN: Obj Data Labs Labs: Laboratory Results - last 24 hr 07/28/23 07/28/23 07/28/23 13:15 13:31 16:12 WBC 9.22 RBC 5.16 Hgb 14.3 Hct 43.6 MCV 85 MCH 28 MCHC 33 RDW Coeff of Milad 13.0 Plt Count 256 Neut % (Auto) 64.4 Lymph % (Auto) 29.1 [place] % (Auto) 3.9 Eos % (Auto) 2.1 Baso % (Auto) 0.4 Neut # (Auto) 5.94 Lymph # (Auto) 2.68 [place] # (Auto) 0.40 Eos # (Auto) 0.19 Baso # (Auto) 0.04 Abs Immat Gran (auto) 0.01 Imm/Tot Granulo (auto) 0.1 Sodium 140 Potassium 3.6 Chloride 106 Carbon Dioxide 22 Anion Gap 12 BUN 12 Creatinine 0.6 Estimated Creat Clear 122.25 Estimated GFR 123 Glucose 85 Calcium 9.8 AST ALT HCG, Qual Urine Color Yellow Yellow Urine Appearance Clear Clear Urine pH 6.0 6.5 Ur Specific [place] 1.010 1.015 Urine Protein Negative Negative Urine Glucose (UA) Negative Negative Urine Ketones Negative Negative Urine Blood 3+ A 2+ A Urine Nitrite Negative Negative Urine Bilirubin Negative Negative Urine Urobilinogen 0.2 0.2 Ur Leukocyte Esterase 1+ A Negative Urine RBC 25-50 A Urine WBC 10-25 A Ur Squamous Epith Cells Moderate A Urine Bacteria Few A Stl C. diff Tox B Gene Stl C. diff 027-NAP1-BI 07/29/23 07/29/23 00:10 06:00 WBC 7.95 RBC 4.27 Hgb 12.1 Hct 36.1 MCV 85 MCH 28 MCHC 34 RDW Coeff of Milad 13.0 Plt Count 196 Neut % (Auto) 53.8 Lymph % (Auto) 38.1 [place] % (Auto) 5.0 Eos % (Auto) 2.6 Baso % (Auto) 0.4 Neut # (Auto) 4.27 Lymph # (Auto) 3.03 H [place] # (Auto) 0.40 Eos # (Auto) 0.21 Baso # (Auto) 0.03 Abs Immat Gran (auto) 0.01 Imm/Tot Granulo (auto) 0.1 Sodium Potassium Chloride Carbon Dioxide Anion Gap BUN Creatinine Estimated Creat Clear Estimated GFR Glucose Calcium AST 23 ALT 12 HCG, Qual Negative Urine Color Urine Appearance Urine pH Ur Specific [place] Urine Protein Urine Glucose (UA) Urine Ketones Urine Blood Urine Nitrite Urine Bilirubin Urine Urobilinogen Ur Leukocyte Esterase Urine RBC Urine WBC Ur Squamous Epith Cells Urine Bacteria Stl C. diff Tox B Gene Negative Stl C. diff [id number]-[id number] PRESUMPTIVE NEGATIVE
[2023-07-29] MEDS: CLINDAMYCIN 900 MG/50 ML-D5W 900 MG/50 ML PIGGYBACK 100 MG IVPB ×3 (08:37→23:54)
[2023-07-29] MEDS: 0.9 % SODIUM CHLORIDE 250 ml IV (08:38)
--- NOTE | 2023-07-29 08:49 | PC.NURSE ---
Pt. moved to OB unit, room 224.
[2023-07-29] MEDS: NIFEdipine 30 MG TAB.ER.24 PO (09:10)
[2023-07-29] MEDS: FAMOTIDINE 20 MG TABLET PO (15:25)
--- NOTE | 2023-07-29 16:08 | CT_ITS ---
Patient: ETIENNE CAMARILLO Facility:?[facility] Patient ID:?[id number] Site Patient ID:?[id number]. Site :?1990 Study:?CT-Abdomen/Pelvis W/ 91CC ISOVUE 370-07/29/2023 5:52:58 PM Ordering Physician:DEBRA Final Report: Indication: D&C YESTERDAY, PLACENTA ACREDA, ON ANTIBIOTICS, POSSIBLE INFECTION CLOSE TO C- SEC INCISION, ABD PAIN Technique: CT abdomen and pelvis with intravenous contrast, 91 cc of Isovue 370. Please note that all CT scans at this facility use dose modulation, iterative reconstruction, and/or weight-based dosing when appropriate to reduce radiation dose to as low as reasonably achievable. Comparison: Pelvic ultrasound July 28, 2023 Findings: The lower chest is unremarkable. The liver, spleen, adrenal glands, pancreas and kidneys are normal. The gallbladder is surgically absent. Fluid and air are noted within the endometrium. There are no pelvic cysts or masses. The hollow viscera are without obstruction, focal bowel wall thickening or adjacent inflammatory stranding. There is no free air, ascites or lymphadenopathy. The abdominal aorta is patent and normal in course and caliber. There are no filling defects within the vasculature. Very small fat containing umbilical hernia is noted. Bones are unremarkable. Impression: Fluid and air within the endometrium, postsurgical versus infectious. Otherwise negative study. Please note that all CT scans at this facility use dose modulation, iterative reconstruction, and/or weight-based dosing when appropriate to reduce radiation dose to as low as reasonably achievable. Dictated by Jose G Roche MD @ 07/29/2023 6:16:02 PM Signed by:?Jose G Roche MD @07/29/2023 6:16:02 PM (Electronic Signature)
[2023-07-29 16:40] LABS: Basophils Absolute Auto 0.04 K/uL (0.00-0.30); Basophils Percent Auto 0.6 % (0.0-3.0); Eosinophils Absolute Auto 0.27 K/uL (0.00-0.50); Eosinophils Percent Auto 3.7 % (0.0-7.0); Hematocrit 39.9 % (33.0-51.0); Immature Granulocytes Abs Auto 0.05 K/uL (0.00-0.30); Immature Granulocytes Pct Auto 0.7 %; Lymphocytes Absolute Auto 2.84 K/uL (0.90-2.90); Lymphocytes Percent Auto 39.3 % (20-44); Mean Corpuscular HGB Conc 33 gm/dL (32-36); Mean Corpuscular Hemoglobin 28 pg (26-34); Mean Corpuscular Volume 86 fL (80-100); Neutrophils Absolute Auto 3.66 K/uL (1.7-7.0); Neutrophils Percent Auto 50.7 % (42.0-72.0); Platelet Count* 234 K/uL (140-440); RDW Coefficient of Variation % 13.1 % (11.5-15.5); Red Blood Count 4.65 m/uL (4.00-5.20); White Blood Count* 7.22 K/uL (4.50-11.00)
[2023-07-29 16:45] LABS: Amylase* 79 U/L (18-89); Aspartate Amino Transferase* 22 U/L (12-35); Blood Urea Nitrogen* 7 mg/dL (5-24); Creatinine* 0.6 mg/dL (0.5-1.5); Est. Creatinine Clearance* 122.25; Estimated Glomerular Filt Rate 123 ml/min; Lactate Dehydrogenase* 195 U/L (120-246)
[2023-07-29 16:46] LABS: Alanine Aminotransferase* 15 U/L (4-35); Lipase* 122 U/L (23-300)
[2023-07-29 17:08] LABS: Slide Review Reflex No
[2023-07-29 17:25] LABS: Fibrinogen* 221 mg/dL (200-450); Partial Thromboplastin Time* 29 Seconds (23-33)
[2023-07-29] MEDS: GENTAMICIN 340 MG in 0.9 % SODIUM CHLORIDE 100 ml 100 ML 108.5 MG IVPB (18:47)
[2023-07-29] MEDS: hydrOXYzine pamoate 25 MG CAPSULE 50 MG PO ×2 (21:22→21:39)
[2023-07-29] MEDS: MORPHINE 10 MG/ML inj IM (21:39)
[2023-07-29] MEDS: PANTOPRAZOLE SODIUM 40 MG INJ IVP (21:39)
[2023-07-29] MEDS: SIMETHICONE 80 MG TAB.CHEW 160 MG PO (23:32)
[2023-07-29] MEDS: CYCLOBENZAPRINE HCL 10 MG TABLET PO (23:54)
[2023-07-30] VITALS (7 sets, daily range): BP systolic 107–128; BP diastolic 69–89; PULSE 73–94; RESP 15–16; TEMP 36.6–36.9; O2SAT 98–100
[2023-07-30] MEDS: ACETAMINOPHEN 500 MG TABLET 1000 MG PO (05:18)
[2023-07-30] MEDS: KETOROLAC 15 MG/ML inj IVP ×4 (07:03→21:18)
[2023-07-30] MEDS: CLINDAMYCIN 900 MG/50 ML-D5W 900 MG/50 ML PIGGYBACK 100 MG IVPB ×2 (08:59→16:57)
[2023-07-30] MEDS: NIFEdipine 30 MG TAB.ER.24 PO (09:02)
[2023-07-30] MEDS: SODIUM CHLORIDE 0.9 % (FLUSH) 10 ML SYRINGE 5 ML IVF ×2 (09:03→20:00)
--- NOTE | 2023-07-30 09:50 | P.GYNPN_ITS ---
INDUSTRIAL REHABILITATION CONSULTANT - A/P Assessment and plan (1) Vaginal bleeding: Status: Acute (2) Acute endometritis: Status: Acute (3) Pelvic pain: Status: Resolved Plan Continue IV antibiotics for 24 more hours. Continue Protonix daily. Flexeril p.r.n.. Final pathology pending, placenta accreta suspected. Anticipate discharge tomorrow. Postoperative Procedures: Procedures Operation Date: 07/28/23 18:10 Actual Procedure Side Surgeon p Hysteroscopy D&C Truclear, suction curettage Not Applicable Keely Hakan Jones MD Postoperative day: 2 Postoperative plan: routine post-op care Time Spent With Patient Time: Total time spent is greater than 50% in coordination of care (as documented) at patient's floor/unit and/or counseling patient: Time with patient: less than 15 minutes INDUSTRIAL REHABILITATION CONSULTANT- PN:Subj Post-Op Subjective Time Seen by Provider: 08:45 Date Seen: 07/30/23 Post Operative Details: Post-operative day number 2: status post D&C for retained placenta and endometritis on Friday evening. She had intermittent sharp abdominal pain in epigastrium last night. She did not feel like the Protonix made much of a difference, but states that the Flexeril helped some. CT scan of the abdomen and pelvis was unremarkable. She has had scant vaginal bleeding since her D&C. She is afebrile. Her IV infiltrated this morning, and ultrasound guidance was needed to place a new IV site. The patient is extremely anxious about discharge, as this is already her second readmission since her hospitalization for delivery/IUFD. INDUSTRIAL REHABILITATION CONSULTANT-PN: Obj Exam Physical Exam: Vital signs: Temp Pulse Resp BP Pulse Ox O2 Del Method 98 F 73 15 128/79 98 Room Air 07/30/23 04:00 07/30/23 08:06 07/30/23 08:06 07/30/23 04:00 07/30/23 04:00 07/30/23 04:00 Constitutional: Constitutional: no acute distress Routine Respiratory Exam: Respiratory: Present CTA bilaterally Detailed Abdominal Exam: Comments: Abdomen is soft, nondistended, and nontender. INDUSTRIAL REHABILITATION CONSULTANT - PN: Obj Data Labs Labs: Laboratory Results - last 24 hr 07/29/23 16:25 WBC 7.22 RBC 4.65 Hgb 13.0 Hct 39.9 MCV 86 MCH 28 MCHC 33 RDW Coeff of Milad 13.1 Plt Count 234 Neut % (Auto) 50.7 Lymph % (Auto) 39.3 [place] % (Auto) 5.0 Eos % (Auto) 3.7 Baso % (Auto) 0.6 Neut # (Auto) 3.66 Lymph # (Auto) 2.84 [place] # (Auto) 0.40 Eos # (Auto) 0.27 Baso # (Auto) 0.04 Abs Immat Gran (auto) 0.05 Imm/Tot Granulo (auto) 0.7 APTT 29 Fibrinogen 221 BUN 7 Creatinine 0.6 Estimated Creat Clear 122.25 Estimated GFR 123 AST 22 ALT 15 Lactate Dehydrogenase 195 Amylase 79 Lipase 122
[2023-07-30] MEDS: SIMETHICONE 80 MG TAB.CHEW 160 MG PO (10:16)
[2023-07-30] MEDS: CYCLOBENZAPRINE HCL 10 MG TABLET PO ×2 (10:25→21:19)
[2023-07-30] MEDS: MAG HYDROX/ALUMINUM HYD/SIMETH 30 ML ORAL.SUSP PO (10:49)
[2023-07-30] MEDS: LORazepam 0.5 MG TABLET PO (16:35)
--- NOTE | 2023-07-30 17:19 | PM.GYNPNPO ---
AIRCRAFT AVIONICS TECHNICIAN - A/P Assessment and plan (1) Vaginal bleeding: Status: Acute (2) Acute endometritis: Status: Acute (3) Pelvic pain: Status: Resolved Plan 1. It is certainly possible that the upper abdominal discomfort is due to musculoskeletal source. She has had some improvement with a muscle relaxer. I suspect that her muscles are tense from anxiety and inactivity since her initial hospitalization. We will try Ativan 0.5 mg q.6 hours as needed. 2. The patient has had multiple antibiotics over the last two weeks, and some of her abdominal discomfort could iatrogenic, relating to the antibiotics and change in her gut yaron. Her current antibiotic regimen has been empiric. She has not had any recent fevers or elevation in white count. The retained products of conception, that may have been the source of the endometritis initially, have been removed surgically. My recommendation would be to consider stopping all antibiotics at discharge tomorrow. I would recommend that she start a daily probiotic to repopulate normal gut yaron. 3. Patient already has a follow-up appointment scheduled [facility]. Postoperative Procedures: Procedures Operation Date: 07/28/23 18:10 Actual Procedure Side Surgeon p Hysteroscopy D&C Truclear, suction curettage Not Applicable Keely Hakan Jones MD Time Spent With Patient Time: Total time spent is greater than 50% in coordination of care (as documented) at patient's floor/unit and/or counseling patient: Time with patient: 25 - 35 minutes AIRCRAFT AVIONICS TECHNICIAN- PN:Subj Post-Op Subjective Time Seen by Provider: 16:20 Date Seen: 07/30/23 Post Operative Details: Called to see patient as she still was complaining of five out a 10 pain across the upper abdomen. When asked to describe the quality of the pain, she stated that it felt like she had been doing large number of sit ups. She had some shoulder strep in neck discomfort last evening that was similar in nature, and that has resolved today. Of note, the abdominal discomfort had improved last night after she received Flexeril. She is having some very mild cramping in the low abdomen similar to mild menstrual cramps. She had just a little bit of bleeding when she voided last. She has not had a bowel movement since receiving Imodium in the emergency department Friday evening. AIRCRAFT AVIONICS TECHNICIAN-PN: Obj Exam Physical Exam: Vital signs: Temp Pulse Resp BP Pulse Ox O2 Del Method 98.3 F 76 15 107/69 98 Room Air 07/30/23 13:36 07/30/23 15:36 07/30/23 15:36 07/30/23 13:36 07/30/23 13:36 07/30/23 13:36 Constitutional: Constitutional: no acute distress Routine Respiratory Exam: Respiratory: Present CTA bilaterally Detailed Abdominal Exam: Comments: Abdomen is soft, nondistended, and nontender. AIRCRAFT AVIONICS TECHNICIAN - PN: Obj Data Labs Labs: Laboratory Results - last 24 hr 07/29/23 16:25 APTT 29 Fibrinogen 221
[2023-07-30] MEDS: PANTOPRAZOLE SODIUM 40 MG INJ IVP (21:57)
[2023-07-31] MEDS: CLINDAMYCIN 900 MG/50 ML-D5W 900 MG/50 ML PIGGYBACK 100 MG IVPB ×2 (01:00→09:08)
[2023-07-31 01:40] VITALS: BP 114/73; PULSE 71; RESP 16; O2SAT 97
[2023-07-31] MEDS: KETOROLAC 15 MG/ML inj IVP ×2 (03:31→09:12)
[2023-07-31] MEDS: ACETAMINOPHEN 500 MG TABLET 1000 MG PO (06:30)
[2023-07-31] MEDS: NIFEdipine 30 MG TAB.ER.24 PO (09:12)
[2023-07-31 09:16] VITALS: PULSE 77; RESP 12
[2023-07-31 09:17] VITALS: BP 116/75; PULSE 77; RESP 12; TEMP 36.4
--- NOTE | 2023-07-31 09:51 | P.DS_ITS ---
DS: Providers Provider Date Seen: 07/31/23 Date of admission: 07/30/23 10:37 Primary care physician: Jyoti Cope DO Admitting Clinician: Jackie Rodrigues MD Attending Physician on discharge: Bonny Mark MD Date of Discharge: 07/31/23 DS: Diagnosis Discharge Diagnosis (1) Acute endometritis: Status: Acute (2) Hypertension: Status: Acute (3) Retained placenta: Status: Acute (4) Gastritis: Status: Acute (5) Abdominal wall pain: Status: Acute MANAGER SEARCH ENGINE-Discharge Summary Hospital Course Hospital Course Narrative: Patient is a 32 year old admitted on 07/28/23 for vaginal bleeding in the setting of recent vaginal delivery of demise at 23 weeks' gestation on 07/16/23. Placenta delivered spontaneously. After follow up as an outpatient in clinic, she was treated with a course of Augmentin for suspected delayed endometritis. She ultimately returned to the hospital with increased bleeding before finishing this course. She had hysteroscopy, D&C on 07/28/[address] Jones with findings notable for retained placenta; there was some concern for placenta accreta given the appearance. However, surgical pathology of the retained placenta did not demonstrate accreta. Darius was started on gentamicin and clindamycin postoperatively for treatment of suspected endometritis. She remained afebrile and with a normal WBC throughout her inpatient course. She did develop some epigastric pain on POD #2. This was evaluated with a CT, which was without acute findings. Pain was successfully managed with a combination of IV Protonix and Flexeril. Vitals have been stable. She has remained afebrile. Today, on postoperative day 3, she reports the pain is adequately controlled. She has minor pelvic cramping. She has a sensation of muscle soreness in her upper abdomen with movement. She has been able to ambulate Without difficulty. She is tolerating regular diet. She is passing flatus and had a little diarrhea today. Bleeding has been scant. Time Spent with Patient Time attestation: Total time spent providing and/or coordinating discharge services: MANAGER SEARCH ENGINE - Exam Physical Exam: Vital signs: Temp Pulse Resp BP Pulse Ox O2 Del Method 97.6 F 77 12 116/75 97 Room Air 07/31/23 09:17 07/31/23 09:17 07/31/23 09:17 07/31/23 09:17 07/31/23 01:40 07/30/23 13:36 Narrative: Physical exam: General: No acute distress, accompanied by her Psych: Alert and oriented x3, full affect HEENT: Normocephalic, atraumatic Heart: Regular rate and rhythm, no murmur rub or gallop Lungs: Clear to auscultation bilaterally Abdomen: Normoactive bowel sounds, soft, mild tenderness to deep palpation central pelvis, no rebound, or guarding, no masses, no hepatosplenomegaly, no hernias Lower extremities: No edema or erythema MANAGER SEARCH ENGINE - DS: Data Data Completed and Pending Completed studies during hospitalization: Procedures Delivery of Products of Conception, External Approach (07/15/23) Introduction of Hormone into Female Reproductive, Via Natural or Artificial Opening (07/15/23) Procedures Procedures: Procedures Operation Date: 07/28/23 18:10 Actual Procedure Side Surgeon p Hysteroscopy D&C Truclear, suction curettage Not Applicable Keely Hakan Jones MD Complications: other (Increased bleeding during the procedure, ultimately addressed with Methergine and suction curettage) Discharge Plan Discharge Disposition: Home, Self-Care Date of Admission: 07/30/23 10:37 Attending Provider on Discharge: Bonny Mark Primary Care Provider: Jyoti Cope Condition: Stable Anticipated Discharge Date/Time: 07/31/23 10:03 Discharge Medications: New nifedipine 30 mg Tablet Extended Release 24hr 30 mg PO DAILY Qty: 60 0RF cyclobenzaprine 10 mg Tablet 10 mg PO TID PRNQty: 20 0RF acetaminophen 500 mg Tablet 1,000 mg PO Q6H PRNQty: 0 0RF pantoprazole [Protonix] 20 mg tablet,delayed release (DR/EC) 20 mg PO DAILY Qty: 30 1RF Continued ascorbic acid (vitamin C) 1,000 mg tablet 1 g PO DAILY Hold Instructions: Doctor's Order cholecalciferol (vitamin D3) 50 mcg (2,000 unit) tablet 2,000 unit PO DAILY Hold Instructions: Doctor's Order lorazepam [Ativan] 0.5 mg tablet 0.5 - 1 mg PO HS PRN (Reason: sleep) ibuprofen 600 mg Tablet 600 mg PO Q6H PRNQty: 60 0RF Discharge Orders: Discharge Order (Routine); Ordered 07/31/23 Ordered By: Bonny Mark Patient Education: Dilation and Curettage (DC), Hysteroscopy (DC) Activity Detail: Nothing per vagina Discharge Diet: Regular Follow Up Appointments: Jyoti Cope DO [Primary Care Provider] - Esme Ramirez MD [Staff Physician] - 08/01/23 Forms: [employer] Info Instructions
== END 2023-07-31 11:20 | disposition home or self-care (01) | DRG 541 ==
LOC: ED 16:31 → OR 17:13 → MEDSURG 07-29 07:43 → OB 07-29 09:48 → MEDSURG 08-04 12:25 → OB 08-04 12:27 → OR 08-04 12:27
PROVIDERS: Obstetrics & Gynecology; Surgery; Admitting Provider Obstetrics & Gynecology; Emergency Provider Emergency Medicine; PCP Family Medicine; Visit Provider Obstetrics & Gynecology
PROC: 0UDB8ZZ Extraction of Endometrium, Via Natural or Artificial Opening Endoscopic (ICD-10-PCS; CPT 58558; principal; 2023-07-28 18:00)
DX: O86.12 Endometritis following delivery (principal); R10.2 Pelvic and perineal pain; O72.0 Third-stage hemorrhage; O16.5 Unspecified maternal hypertension, complicating the puerperium; K29.00 Acute gastritis without bleeding; O99.345 Other mental disorders complicating the puerperium; F41.1 Generalized anxiety disorder
CPT/HCPCS: 00952; 36415; 74177; 76830; 80048; 81001; 81003; 82150; 82565; 83615; 83690; 84450; 84460; 84520; 84703; 85025; 85384; 85730; 87086; 87493; 88305; 99140; 99283; 99285; A9270; C9113; J0290; J0330; J0736; J1580; J1885; J2210; J2250; J2270; J2405; J2704; J3010; J7030; J7050; J7120; Q9967

== ENCOUNTER 2023-08-01 10:05 | Outpatient (CLI) | payer BC, MEDICAID, SELFPAY | END 2023-08-01 10:06 | disposition home or self-care (01) | LOC: NFLDREF 10:05 | PROVIDERS: PCP Family Medicine; Visit Provider Obstetrics & Gynecology | DX: R19.7 Diarrhea, unspecified (principal) | CPT/HCPCS: 87493 ==

== ENCOUNTER 2023-08-25 10:48 | Outpatient (CLI) | payer BC, MEDICAID, SELFPAY ==
--- NOTE | 2023-08-25 11:00 | US_ITS ---
Patient: ETIENNE CAMARILLO Facility:?[facility] Patient ID:?[id number] Site Patient ID:?[id number]. Site :?1990 Study:?US-Pelvis PELVIS TA & TV-08/25/2023 11:46:25 AM Ordering Physician:?KRISTEL CASTILLO M.D. Final Report: CLINICAL HISTORY: Pelvic and perineal pain TECHNIQUE: 2D marinelli scale ultrasound. In addition color Doppler and spectral Doppler analysis was performed of the pelvis using a transabdominal and approach. Comparison 07/29/2023 CT, 07/28/2023 ultrasound FINDINGS: On transvaginal imaging, the myometrium has a normal uniform echotexture. The uterus measures 9.9 x 4.5 x 8.7 cm the endometrial lining measures 10 mm in thickness. The right ovary measures 2.7 x 1.9 x 2.2 cm in size and the left ovary measures 3.8 x 2.1 x 2.3 cm. The ovaries demonstrate normal arterial and venous blood flow on color Doppler and spectral Doppler analysis. There are no suspicious fluid collections within the cul-de-sac. IMPRESSION: Normal pelvic ultrasound. No ovarian torsion, adnexal mass or excess pelvic free fluid. No endometrial fluid or abnormal vascularity. Dictated by Zay Drake MD @ 08/26/2023 7:43:05 AM Signed by:?Zay Drake MD @08/26/2023 7:43:05 AM (Electronic Signature)
== END 2023-08-25 10:49 | disposition home or self-care (01) ==
LOC: US 10:48
PROVIDERS: PCP Family Medicine; Visit Provider Obstetrics & Gynecology
DX: R10.2 Pelvic and perineal pain (principal)
CPT/HCPCS: 76830; 76856; 93976

== ENCOUNTER 2023-08-27 13:29 | Outpatient (CLI) | payer BC, MEDICAID, SELFPAY | END 2023-08-27 13:30 | disposition home or self-care (01) | LOC: NFLDREF 13:30 | PROVIDERS: PCP Family Medicine; Visit Provider Obstetrics & Gynecology | DX: O73.0 Retained placenta without hemorrhage (principal); N93.9 Abnormal uterine and vaginal bleeding, unspecified | CPT/HCPCS: 84702 ==

== ENCOUNTER 2023-10-09 06:48 | Day surgery (SDC) | payer BC, MEDICAID, SELFPAY ==
[2023-10-09] VITALS (13 sets, daily range): BP systolic 104–134; BP diastolic 66–88; PULSE 63–91; RESP 14–20; TEMP 36.4–36.7; O2SAT 96–99; BMI 30.2
--- OUTSIDE RECORDS SUMMARY | 2023-10-09 06:50 | XMS_ITS | Encounter Summary ---
Author Name Unknown Organization [place] Address [facility] [place] [address] Care Team Providers Care Homebirth Midwife Name Role Phone Lamine Pizarro MD Unavailable [phone] Raven Laguna MD Primary Care Provider [phone] Encounter Details Date Type Department Care Team (Late st Contact Info) Description 09/03/2023 Telephone [facility] [address] [place] [address] RN Social History Tobacco Use Types Packs/Day Years Used Date Smoking Tobacco: Former Cigarettes 0.5 2 Adolescent Education Answer Date Record ed Getting School Help Needed Not on file 04/22 Sex and Gender Information Value Date Recorded Sex Assigned at Female 06/19/2023 11:52 AM CIRCUS ARTIST Gender Identity Female 06/19/2023 11:52 AM CIRCUS ARTIST Sexual Orientation Straight 06/19/2023 11 :52 AM CIRCUS ARTIST documented as of this encounter Miscellaneous Notes * Telephone Encounter - Lena Lane RN - 09/03/2023 3:42 PM CDT Stenotypist spoke to Dr. Livingston and music writer to call pt with normal lab results. Patient had plan discussed with Dr. Ray Garcia and is aware of MRI tomorrow. Pt is aware of plan and follow up with primary at this time. documented in this encounter Plan of Treatment Not on file documented as of this encounter Visit Diagnoses Not on filedocumented in this encounter Care Teams Homebirth Midwife Relationship Specialty Start Date End Date Raven Laguna MD [facility] [address] [place] [address] PCP - General keno manager 04/23/23 Lamine Pizarro MD [address] [place] [id number] Nephrology 04/23/23 documented as of this encounter
--- OUTSIDE RECORDS SUMMARY | 2023-10-09 06:50 | XMS_ITS | Clinical Summary ---
Author Name Unknown Organization [place] Address [address] [place] [address]. [place] [address] Care Team Providers Care Concrete Journeyman Name Role Phone Lamine Pizarro MD Unavailable [phone] Raven Laguna MD Primary Care Provider [phone] Allergies No known active allergies Medications Medication Sig Dispensed Refills Start Date End Date Status VITAMIN C, CALCIUM ASCORBATE, PO Take 1 tablet by mouth daily Active MAGNESIUM GLYCINATE PO Take 1 tablet by mouth daily Active Multiple Vitamins-Minerals (ZINC PO) Take 1 tablet by mouth daily Active LORazepam (ATIVAN PO) Take 1 tablet by mouth daily Active Pantoprazole Sodium (PROTONIX PO) Take 1 tablet by mouth daily Active Active Problems Problem Noted Date Diagnosed Date History of IUFD 08/20/2023 Generalized anxiety disorder 08/20/2023 Bunion of great toe of right foot 08/20/2023 hemorrhage of vagina 08/20/2023 Vaginal after , delivered, current hospitalization 08/20/2023 Proteinuria 08/20/2023 Previous delivery affecting 0 08/20/2023 Hypertension 08/20/2023 History of severe pre-eclampsia 08/20/2023 Polycystic ovary syndrome 12/25/2019 History of MRSA infection 07/27/2017 Depression 06/03/2012 Encounters Date Type Department Care Team Description 09/03/2023 Telephone [facility] [place] [address] [place] [address] Lena Somers RN 08/28/2023 1:30 PM CDT Office Visit [facility] [place] [address] [place] [address] Amarilys Munguia, Libby Mujica MD Yamamura, Yasuko, MD History of demise, not currently (Primary Dx); Encounter for preconception consultation 08/28/2023 12:05 AM CDT - 08/28/2023 11:59 PM CDT Hospital Encounter [facility] [address] [place] [phone] Stefano Livingston MD Encounter for preconception consultation Discharge Disposition: Home or Self Care 08/28/2023 Travel 08/21/2023 Travel 08/20/2023 PRE VISIT [facility] [address] [place] [address] Elvira Martin, RN Consult (Preconception- Hx 23 week IUFD, CHTN, Anx/Dep, Hx PreE with SF, Hx CS x 1, Proteinuria) 08/20/2023 Orders Only [facility] [address] [place] [address] Lena Livingston RN Encounter for preconception consultation (Primary Dx) 08/20/2023 Telephone [facility] [address] [place] [address] Elvira Martin RN 08/20/2023 Care Coordination [facility] [address] [place] [address] Lena Livingston RN 08/20/2023 Care Coordination [facility] [address] [place] [address] Elvira Martin RN 08/20/2023 Telephone [facility] [address] [place] [address] Lena Livingston RN 08/15/2023 Transcribe Orders [facility] [address] [facility] [address] [place] [address] Esme Byrne MD related condition, antepartum (Primary Dx) 08/13/2023 Medical Correspondence [facility] [address] [place] TANIKA Ramirez [phone] Scan, Non-Provider RECORD 07/15/2023 10:00 AM FIBERGLASS BOAT FINISHER Office Visit [facility] [place] [address] [facility] [address] [place] [address] Melo Odonnell MD demise, greater than 22 weeks, antepartum, single or unspecified fetus (Primary Dx) 07/15/2023 9:30 AM FIBERGLASS BOAT FINISHER - 07/15/2023 11:59 PM FIBERGLASS BOAT FINISHER Hospital Encounter [facility] [place] [address] [address] [facility] [address] [place] [address] Melo Odonnell MD Encounter for follow-up ultrasound of anatomy; growth restriction antepartum Discharge Disposition: Home or Self Care 07/15/2023 Travel from Last 3 Months Social History Tobacco Use Types Packs/Day Years Used Date Smoking Tobacco: Former Cigarettes 0.5 2 Tobacco Cessation:Counseling Given: Not Answered Adolescent Education Answer Date Record ed Getting School Help Needed Not on file 04/22 Sex and Gender Information Value Date Recorded Sex Assigned at Female 06/19/2023 11:52 AM FIBERGLASS BOAT FINISHER Gender Identity Female 06/19/2023 11:52 AM FIBERGLASS BOAT FINISHER Sexual Orientation Straight 06/19/2023 11 :52 AM FIBERGLASS BOAT FINISHER Last Filed Vital Signs Vital Sign Reading Time Taken Comments Blood Pressure 142/83 08/28/2023 3:51 PM CDT Pulse 98 08/28/2023 3:51 PM CDT Temperature - - Respiratory Rate 20 08/28/2023 3:51 PM CDT Oxygen Saturation 100% 08/28/2023 3:51 PM CDT room air Inhaled Oxygen Concentration - - Weight - - Height - - Body Mass Index - - Plan of Treatment Health Maintenance Due Date Last Done Comments ADVANCE CARE PLANNING 1990 ANNUAL REVIEW OF HM ORDERS 1990 YEARLY PREVENTIVE VISIT 1990 HIV SCREENING 11/15/2006 HEPATITIS C SCREENING 11/15/2009 PAP 11/15/2012 HPV IMMUNIZATION (2 - 3-dose series) 12/20/2014 11/22/2014 COVID-19 Vaccine ( season) 2023 PHQ-2 (once per calendar year) 2023 INFLUENZA VACCINE (Season Ended) 2024 DTAP/TDAP/TD IMMUNIZATION (8 - Td or Tdap) [...] on patient's age to complete this topic Procedures Procedure Name Priority Date/Time Associated Diagnosis Comments HCG QUANTITATIVE Routine 08/28/2023 3:18 PM CDT History of demise, not currently COMPREHENSIVE METABOLIC PANEL Routine 08/28/2023 3:18 PM CDT History of demise, not currently CBC WITH PLATELETS Routine 08/28/2023 3: 18 PM CDT History of demise, not currently ANTI NUCLEAR INDERJIT IGG BY IFA WITH REFLEX Routine 08/28/2023 3:18 PM CDT History of demise, not currently CT [facility] Routine 08/28/2023 1 2:05 AM CDT Encounter for preconception consultation US IMAGING - HIM SCAN 08/25/2023 12:00 AM CDT MFM US COMPREHENSIVE SINGLE F/U Routine 07/15/2023 10:14 AM FIBERGLASS BOAT FINISHER Encounter for follow-up ultrasound of anatomy growth restriction antepartum from Last 3 Months Results * Anti Nuclear Inderjit IgG by IFA with Reflex (08/28/2023 3:18 PM CDT) Pathologist [facility] SHILPA interpretation Negative Negative 2023 1:46 PM CDT SPECIALTY CORE/PROT/EN DO Comment: Negative: ?<1:40 Borderline Positive: ?? 1:40 - 1:80 Positive: ?>1:80 Blood STRUCTURE OF LEFT UPPER LIMB / Unknown Venipuncture / Unknown 08/28/2023 3:18 PM CDT 08/28/2023 3:46 PM CDT Stefano Livingston MD LAB - BLOOD ORDERABL ES SPECIALTY CORE/PROT/ENDO Specialty Core/Prot/Endo [address] [facility], [address] * hCG Quantitative (08/28/2023 3:18 PM CDT) Pathologist [facility] hCG Quantitative <1 <5 mIU/mL 08/28/19 24 4:14 PM CDT UR LABORATORY Comment: Adult: 0-5 mIU/mL for healthy non- person Neonates: Should be within normal ranges by 2 days after Blood STRUCTURE OF LEFT UPPER LIMB / Unknown Venipuncture / Unknown 08/28/2023 3:18 PM CDT 08/28/2023 3:46 PM CDT Stefano Livingston MD LAB - BLOOD ORDERABL ES UR LABORATORY [facility] [address] [facility] [place] [address] * Comprehensive metabolic panel (08/28/2023 3:18 PM CDT) Pathologist [facility] Sodium 142 135 - 145 mmol/L 08/28/2023 4:14 PM CDT UR LABORATORY Comment:Reference intervals for this test were updated on 02/18/2023 to more accurately reflect our healthy population. There may be differences in the flagging of prior results with similar values performed with this method. Interpretation of those prior results can be made in the context of the updated reference intervals. Potassium 4.2 3.4 - 5.3 mmol/L 08/28/2023 4:14 PM CDT UR LABORATORY Carbon Dioxide (CO2) 26 22 - 29 mmol/L 08/28/2023 4:14 PM CDT UR LAB[facility]ATORY Anion Gap 12 7 - 15 mmol/L 08/28/2023 4:14 PM CDT UR LABORATORY Urea Nitrogen 11.2 6.0 - 20.0 mg/dL 08/28/2023 4:14 PM CDT UR LABORATORY Creatinine 0.79 0.51 - 0.95 mg/dL 08/28/2023 4:14 PM CDT UR LAB[facility]ATORY GFR Estimate >90 >60 mL/min/1. 73m2 08/28/2023 4:14 PM CDT UR LAB[facility]ATORY Calcium 9.6 8.6 - 10.0 mg/dL 08/28/2023 4:14 PM CDT UR LAB[facility]ATORY Chloride 104 98 - 107 mmol/L 08/28/2023 4:14 PM CDT UR LAB[facility]ATORY Glucose 92 70 - 99 mg/dL 08/28/2023 4:14 PM CDT UR LAB[facility]ATORY Alkaline Phosphatase 85 40 - 150 U/L 08/28/2023 4:14 PM CDT UR LAB[facility]ATORY Comment:Reference intervals for this test were updated on 04/08/2023 to more accurately reflect our healthy population. There may be differences in the flagging of prior results with similar values performed with this method. Interpretation of those prior results can be made in the context of the updated reference intervals. AST 27 0 - 45 U/L 08/28/2023 4:14 PM CDT UR LAB[facility]ATORY Comment:Reference intervals for this test were updated on 11/04/2022 to more accurately reflect our healthy population. There may be differences in the flagging of prior results with similar values performed with this method. Interpretation of those prior results can be made in the context of the updated reference intervals. ALT 16 0 - 50 U/L 08/28/2023 4:14 PM CDT UR LAB[facility] Comment:Reference intervals for this test were updated on 11/04/2022 to more accurately reflect our healthy population. There may be differences in the flagging of prior results with similar values performed with this method. Interpretation of those prior results can be made in the context of the updated reference intervals. Protein Total 7.5 6.4 - 8.3 g/dL 08/28/2023 4:14 PM CDT UR LAB[facility]ATORY Albumin 4.8 3.5 - 5.2 g/dL 08/28/2023 4:14 PM CDT UR LAB[facility]ATORY Bilirubin Total 0.3 <=1.2 mg/dL 08/28/2023 4:14 PM CDT UR LABORATORY Blood STRUCTURE OF LEFT UPPER LIMB / Unknown Venipuncture / Unknown 08/28/2023 3:18 PM CDT 08/28/2023 3:46 PM CDT Stefano Livingston MD LAB - BLOOD ORDERABL ES UR LABORATORY [facility] [address] [facility], [address] [place] [phone] * (ABNORMAL) CBC with Platelets (08/28/2023 3:18 PM CDT) WBC Count 9.3 4.0 - 11.0 10e3/uL 08/28/2023 3:48 PM CDT UR LABORATORY RBC Count 5.28(H) 3.80 - 5.20 10e6/uL 08/28/2023 3:48 PM CDT UR LABORATORY Hemoglobin 14.8 11.7 - 15.7 g/dL 08/28/2023 3:48 PM CDT UR LABORATORY Hematocrit 44.4 35.0 - 47.0 % 08/28/2023 3:48 PM CDT UR LABORATORY MCV 84 78 - 100 fL 08/28/2023 3:48 PM CDT UR LABORATORY MCH 28.0 26.5 - 33.0 pg 08/28/2023 3:48 PM CDT UR LABORATORY MCHC 33.3 31.5 - 36.5 g/dL 08/28/2023 3:48 PM CDT UR LAB[facility]ATORY RDW 12.1 10.0 - 15.0 % 08/28/2023 3:48 PM CDT UR LAB[facility]ATORY Platelet Count 256 150 - 450 10e3/uL 08/28/2023 3:48 PM CDT UR LABORATORY Blood STRUCTURE OF LEFT UPPER LIMB / Unknown Venipuncture / Unknown 08/28/2023 3:18 PM CDT 08/28/2023 3:46 PM CDT Stefano Livingston MD LAB - BLOOD ORDERABL ES UR LABORATORY [facility] [address] [facility] [place] [address] * CT [facility] (08/28/2023 12:05 AM CDT) Anatomical Region Laterality Modality Outside Computed Radiogr aphy Impressions 09/02/2023 3:13 PM CDT IMPRESSION: 1. No acute abnormality within the abdomen or pelvis. 2. No abnormality of the endometrial canal/myometrium to suggest retained placenta; however, evaluation of the pelvic structures on CT is suboptimal compared to ultrasound and/or MRI. If there is ongoing clinical concern, further evaluation with pelvic MRI could be performed. I have personally reviewed the examination and initial interpretation and I agree with the findings. JOSE KC MD Narrative 09/02/2023 3:13 PM CDT EXAMINATION: CT [facility] 08/28/2023 12:05 AM TECHNIQUE: Outside films dated 07/29/2023 were submitted for interpretation. CT images extending from lower chest through the pubic symphysis were performed with contrast. COMPARISON: Pelvic ultrasound 08/25/2023, 07/28/2023 PREVIOUS REPORT: The original interpretation was not available for review at the time of this dictation. HISTORY: Encounter for preconception consultation FINDINGS: ?? This report is designed to answer a focused clinical question and should be interpreted in conjunction with the original report. Lower thorax: Normal. ? Liver: No mass. No intrahepatic biliary ductal dilation. ? Biliary System: Cholecystectomy. No extrahepatic biliary ductal dilation. Pancreas: No mass or pancreatic ductal dilation. ?? Adrenal glands: No mass or nodules. Spleen: Normal. Kidneys: No suspicious mass, obstructing calculus or hydronephrosis. ?? Gastrointestinal tract: Normal appendix. Normal caliber small bowel. ? Mesentery/peritoneum/retroperitoneum: No mass. No free fluid or air. ?? Lymph nodes: No significant lymphadenopathy. Vasculature: Patent major abdominal vasculature. ?? Pelvis: Urinary bladder is normal. Thickened endometrial stripe with small focus of air within the endometrial canal, presumably related to recent dilatation and curettage. Otherwise normal appearance of the uterus and adnexa. No appreciable retained placenta. No uterine arteriovenous malformation visualized. Osseous structures: No aggressive or acute osseous lesion. ? Soft tissues: Tiny fat-containing umbilical hernia. ?? Procedure Note Jose Kc MD - 09/02/2023 EXAMINATION: CT [facility] 08/28/2023 12:05 AM TECHNIQUE: Outside films dated 07/29/2023 were submitted for interpretation. CT images extending from lower chest through the pubic symphysis were performed with contrast. COMPARISON: Pelvic ultrasound 08/25/2023, 07/28/2023 PREVIOUS REPORT: The original interpretation was not available for review at the time of this dictation. HISTORY: Encounter for preconception consultation FINDINGS: This report is designed to answer a focused clinical question and should be interpreted in conjunction with the original report. Lower thorax: Normal. Liver: No mass. No intrahepatic biliary ductal dilation. Biliary System: Cholecystectomy. No extrahepatic biliary ductal dilation. Pancreas: No mass or pancreatic ductal dilation. Adrenal glands: No mass or nodules. Spleen: Normal. Kidneys: No suspicious mass, obstructing calculus or hydronephrosis. Gastrointestinal tract: Normal appendix. Normal caliber small bowel. Mesentery/peritoneum/retroperitoneum: No mass. No free fluid or air. Lymph nodes: No significant lymphadenopathy. Vasculature: Patent major abdominal vasculature. Pelvis: Urinary bladder is normal. Thickened endometrial stripe with small focus of air within the endometrial canal, presumably related to recent dilatation and curettage. Otherwise normal appearance of the uterus and adnexa. No appreciable retained placenta. No uterine arteriovenous malformation visualized. Osseous structures: No aggressive or acute osseous lesion. Soft tissues: Tiny fat-containing umbilical hernia. IMPRESSION: 1. No acute abnormality within the abdomen or pelvis. 2. No abnormality of the endometrial canal/myometrium to suggest retained placenta; however, evaluation of the pelvic structures on CT is suboptimal compared to ultrasound and/or MRI. If there is ongoing clinical concern, further evaluation with pelvic MRI could be performed. I have personally reviewed the examination and initial interpretation and I agree with the findings. JOSE KC MD Stefano Livingston MD [facility] CT ORDERABLES * US Imaging - HIM Scan (08/25/2023 12:00 AM CDT) Anatomical Region Laterality Modality Other 08/25/2023 Provider Outside IMG US ORDERABLES * M US Comprehensive Single F/U (07/15/2023 10:14 AM FIBERGLASS BOAT FINISHER) Anatomical Region Laterality Modality Ultrasound 07/15/2023 9:45 AM FIBERGLASS BOAT FINISHER Impressions 07/15/2023 10:31 AM FIBERGLASS BOAT FINISHER IMPRESSION ----- 1. Morales intrauterine at 23w [...] on US evaluation. Narrative 07/15/2023 10:31 AM FIBERGLASS BOAT FINISHER ?Comp Follow Up ----- Pat. Name: ETIENNE CAMARILLO ? Study Date: ??07/15/2023 9:45am Pat. NO: ??[id number] ?Referring ??MD: ESME RAMIREZ Site: [facility] ? Canoe Inspector: Lovely Penaloza RDMS : ??1990 ?Age: [...] 0 lb 7 ?oz EFW by ?Hadlock ([id number]) ANATOMY ----- Gender: uncertain. MATERNAL STRUCTURES ----- Cervix ?Visualized ? Appearance: Appears Closed ? Approach - Transabdominal Right Ovary ?Not examined Left Ovary ?Not examined RECOMMENDATION ----- Findings reviewed with Etienne and her partner - this was a possibility but not anticipated by them or by our team. We have notified the primary OB team of Dr. Ray Garcia in [place]. We very briefly reviewed options for delivery including induction delivery locally vs. surgical delivery, which I am not sure if she would need to be referred to our Pan Operator colleagues in [place] for that procedure. They are leaning towards a timely induction delivery locally in [place] at this time. Dr. Ramirez is aware [...] recommend maternal testing for antiphospholipid antibodies - excj-[id number] antibodies, lupus anticoagulation and anticardiolipin antibodies. We are happy to see her back after her loss for review of pathology and lab results, to help guide care for any future pregnancies. Procedure Note Melo Odonnell MD - 07/15/2023 Comp Follow Up ----- Pat. Name: ETIENNE CAMARILLO Study Date: 07/15/2023 9:45am Pat. NO: [id number] Referring MD: ESME RAMIREZ Site: [facility] Canoe Inspector: Lovely PenalozaNATE : 1990 Age: 32 ----- INDICATION ----- Early Onset FGR on previous u/s DEMISE METHOD ----- Transabdominal ultrasound examination. View: Sufficient ----- Morales . Number of fetuses: 1 DATING ----- DateDetailsGest. age RODGER LMP 01/27/2023ycle: irregular, long [id number] w + 1 d 11/03/2023 Prior assessment [...] 0 lb 7 oz EFW by Hadlock ([id number]) ANATOMY ----- Gender: uncertain. MATERNAL STRUCTURES ----- Cervix Visualized Appearance: Appears Closed Approach - Transabdominal Right Ovary Not examined Left Ovary Not examined RECOMMENDATION ----- Findings reviewed with Etienne and her partner - this was a possibilitybut not anticipated by them or by our team. We have notified the primary OB team of Dr. Ray Garcia in [place].We very briefly reviewed options for delivery including induction deliverylocally vs. surgical delivery, which I am not sure if she would need to be referred to ourOb/Swimming Instructor colleagues in [place] for that procedure. They are leaningtowards a timely induction delivery locally in [place] at this time. Dr. Ramirez is awareand [...] I recommend maternal testing for antiphospholipid antibodies -dbia-[id number] antibodies, lupus anticoagulation and anticardiolipinantibodies. We are [...] based on US evaluation. Melo Odonnell MD [facility] US ORDERAB LES from Last 3 Months Care Teams Concrete Journeyman Relationship Specialty Start Date End Date Raven Laguna MD [facility] [address] [place] [address] PCP - General actuarial director 04/23/23 Lamine Pizarro MD [address] [place] [address] Nephrology 04/23/23
--- OUTSIDE RECORDS SUMMARY | 2023-10-09 06:50 | XMS_ITS | Encounter Summary ---
Author Name Unknown Organization [facility] Address [address] [place] [address]. [place] [address] Care Team Providers Care Dot Etcher Apprentice Name Role Phone Lamine Pizarro MD Unavailable [phone] Raven Lgauna MD Primary Care Provider [phone] Reason for Visit * Diagnostic Imaging CT Scan (Routine) - Pending Review Specialty Diagnoses / Procedures Referred By Kevin montalvo Referred To Contact Radiology. Diagnoses Encounter for preconception consultation Procedures [facility] Stefano Livingston MD [address] [facility] [address] [place] [address] Referral ID Status Reason Start Date Expiration Date V isits Requested Visits Authorized [id number] Pending Review 08/28/2023 08/27/2024 1 1 Encounter Details Date Type Department Care Team (Latest Contact Info) Description 08/28/2023 12:05 AM CDT - 08/28/2023 11:59 PM CDT Hospital Encounter [facility] Imaging [address] [place] [address] Stefano Livingston MD [address] [place] [address] Encounter for preconception consultation Discharge Disposition: Home or Self Care Social History Tobacco Use Types Packs/Day Years Used Date Smoking Tobacco: Former Cigarettes 0.5 2 Adolescent Education Answer Date Record ed Getting School Help Needed Not on file 04/22 Sex and Gender Information Value Date Recorded Sex Assigned at Female 06/19/2023 11:52 AM MACHINE FILLER SHREDDER Gender Identity Female 06/19/2023 11:52 AM MACHINE FILLER SHREDDER Sexual Orientation Straight 06/19/2023 11 :52 AM MACHINE FILLER SHREDDER documented as of this encounter Medications at Time of Discharge Medication Sig Dispensed Refills Start Date End Date LORazepam (ATIVAN PO) Take 1 tablet by mouth daily MAGNESIUM GLYCINATE PO Take 1 tablet by mouth daily Multiple Vitamins-Minerals (ZINC PO) Take 1 tablet by mouth daily Pantoprazole Sodium (PROTONIX PO) Take 1 tablet by mouth daily VITAMIN C, CALCIUM ASCORBATE, PO Take 1 tablet by mouth daily documented as of this encounter Plan of Treatment Not on file documented as of this encounter Procedures Procedure Name Priority Date/Time Associated Diagnosis Comments CT [facility] Routine 08/28/2023 12:05 AM CDT Encounter for preconception consultation documented in this encounter Results * [facility] (08/28/2023 12:05 AM [...] and I agree with the findings. JOSE MORROW MD Narrative 09/02/2023 3:13 PM CDT EXAMINATION: [...] fat-containing umbilical hernia. ?? Procedure Note Jose Morrow MD - 09/02/2023 EXAMINATION: CT [facility] 08/28/2023 12:05 AM [...] and I agree with the findings. JOSE MORROW MD Stefano Livingston MD IMG CT ORDERABLES documented in this encounter Visit Diagnoses Diagnosis Encounter for preconception consultation documented in this encounter Care Teams Dot Etcher Apprentice Relationship Specialty Start Date End Date Raven Laguna MD [address] [address] PCP - General sales attendant building materials 04/23/23 Lamine Pizarro MD [address] [place] [address] Nephrology 04/23/23 documented as of this encounter
--- OUTSIDE RECORDS SUMMARY | 2023-10-09 06:50 | XMS_ITS | Referral Summary ---
Author Name Unknown Organization [place] Address [address] [place] [address] Care Team Providers Care Computer Game Programmer Name Role Phone Lamine Pizarro MD Unavailable [phone] Raven Laguna MD Primary Care Provider [phone] Encounters Date Type Department Care Team Description 09/03/2023 Telephone [facility] [address] [place] [address] Lena Somers RN 08/28/2023 12:05 AM CDT - 08/28/2023 11:59 PM CDT Hospital Encounter [facility] [address] [place] [address] Stefano Livingston MD Encounter for preconception consultation Discharge Disposition: Home or Self Care 08/28/2023 Travel 08/28/2023 1:30 PM CDT Office Visit [facility] [place] [address] [facility] [place], [place] [phone] Amarilys Munguia CNM Burn, Martina, MD Yamamura, Yasuko, MD History of demise, not currently (Primary Dx); Encounter for preconception consultation 08/21/2023 Travel 08/20/2023 PRE VISIT [facility] [place] [address] [place], [place] [address] Elvira Martin, RN Consult (Preconception- 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 week IUFD, CHTN, Anx/Dep, Hx PreE with SF, Hx CS x 1, Proteinuria) 08/20/2023 Orders Only [facility] [address] [place] [address] Lena Livingston, RN Encounter for preconception consultation (Primary Dx) 08/20/2023 Telephone [facility] [address] [place] [address] Elvira Martin, ELAINE 08/20/2023 Care Coordination [facility] [address] [place] [address] Lena Livingston RN 08/20/2023 Care Coordination [facility] [address] [place] [address] Elvira Martin RN 08/20/2023 Telephone [facility] [address] [place] [address] Lena Livingston RN 08/15/2023 Transcribe Orders [facility] [address] [place] [address] Esme Byrne MD related condition, antepartum (Primary Dx) 08/13/2023 Medical Correspondence [facility] [address] [place] [phone] Scan, Non-Provider RECORD 07/15/2023 Travel 07/15/2023 10:00 AM SQL SSIS DEVELOPER Office Visit [facility] [address] [place] [address] Melo Odonnell MD demise, greater than 22 weeks, antepartum, single or unspecified fetus (Primary Dx) 07/15/2023 9:30 AM SQL SSIS DEVELOPER - 07/15/2023 11:59 PM SQL SSIS DEVELOPER Hospital Encounter [facility] [address] [place] [address] Melo Odonnell MD Encounter for follow-up ultrasound of anatomy; growth restriction antepartum Discharge Disposition: Home or Self Care from Last 3 Months Allergies No known active allergies Medications Medication [...] History of MRSA infection 07/27/2017 Depression 06/03/2012 Social History Tobacco Use Types Packs/Day Years Used Date Smoking Tobacco: Former Cigarettes 0.5 2 Tobacco Cessation:Counseling Given: Not Answered Adolescent Education Answer Date Record ed Getting School Help Needed Not on file 04/22 Sex and Gender Information Value Date Recorded Sex Assigned at Female 06/19/2023 11:52 AM SQL SSIS DEVELOPER Gender Identity Female 06/19/2023 11:52 AM SQL SSIS DEVELOPER Sexual Orientation Straight 06/19/2023 11 :52 AM SQL SSIS DEVELOPER Last Filed Vital Signs Vital Sign Reading [...] - HIM SCAN 08/25/2023 12:00 AM CDT [facility] US COMPREHENSIVE SINGLE F/U Routine 07/15/2023 10:14 AM SQL SSIS DEVELOPER Encounter for follow-up ultrasound of anatomy growth restriction antepartum from Last 3 Months Results * Anti Nuclear Inderjit IgG by IFA with Reflex (08/28/2023 3:18 PM CDT) SHILPA interpretation Negative Negative 2023 1:46 PM CDT [facility] C[facility]/PROT/EN DO Comment: Negative: ?<1:40 Borderline Positive: ?? 1:40 - 1:80 Positive: ?>1:80 Blood STRUCTURE OF LEFT UPPER LIMB / Unknown Venipuncture / Unknown 08/28/2023 3:18 PM CDT 08/28/2023 3:46 PM CDT Stefano Livingston MD LAB - BLOOD ORDERABL ES [facility] CORE/PROT/ENDO [facility] Core/Prot/Endo [address] [facility], Room [address] * hCG Quantitative (08/28/2023 3:18 PM CDT) hCG Quantitative <1 <5 mIU/mL 08/28/19 4:14 PM CDT UR LABORATORY Comment: Adult: 0-5 mIU/mL for healthy non- person Neonates: Should be within normal ranges by 2 days after Blood STRUCTURE OF LEFT UPPER LIMB / Unknown Venipuncture / Unknown 08/28/2023 3:18 PM CDT 08/28/2023 3:46 PM CDT Stefano Livingston MD LAB - BLOOD ORDERABL ES UR LABORATORY [facility] Acute Care Lab [address] [facility] [place] [address], [facility] * Comprehensive metabolic panel (08/28/2023 3:18 PM CDT) Sodium 142 135 - 145 mmol/L 08/28/2023 [...] LAB - BLOOD ORDERABL ES UR LABORATORY [facility] Acute Care Lab [address] [facility], [address] [place] [address], [facility] * (ABNORMAL) CBC with Platelets [...] LAB - BLOOD ORDERABL ES UR LABORATORY [facility] Acute Care Lab [address] [facility], [address] [place] [address] * CT [facility] (08/28/2023 12:05 AM [...] Jose Kc MD - 09/02/2023 EXAMINATION: CT [facility] [...] findings. JOSE KC MD Stefano Livingston MD [facility] [place] ORDERABLES * US Imaging - HIM Scan (08/25/2023 12:00 AM CDT) Anatomical Region Laterality Modality Other 08/25/2023 Provider Outside [facility] US ORDERABLES * [facility] US Comprehensive Single F/U (07/15/2023 10:14 AM SQL SSIS DEVELOPER) Anatomical Region Laterality Modality Ultrasound 07/15/2023 9:45 AM SQL SSIS DEVELOPER Impressions 07/15/2023 10:31 AM SQL SSIS DEVELOPER IMPRESSION ----- 1. Morales intrauterine at 23w [...] on US evaluation. Narrative 07/15/2023 10:31 AM SQL SSIS DEVELOPER ?Comp Follow Up ----- Pat. Name: ETIENNE CAMARILLO ? Study Date: ??07/15/2023 9:45am Pat. NO: ??[id number] ?Referring ??MD: ESME RAMIREZ Site: ??[facility] ? General Surgery Physician Assistant: Lovely Penaloza RDMS : ??1990 ?Age: ?? [...] 0 lb 7 ?oz EFW by ?Hadlock ([id number]) ANATOMY ----- Gender: uncertain. MATERNAL STRUCTURES ----- Cervix ?Visualized ? Appearance: Appears Closed ? Approach - Transabdominal Right Ovary ?Not examined Left Ovary ?Not examined RECOMMENDATION ----- Findings reviewed with Etienne and her partner - this was a possibility but not anticipated by them or by our team. We have notified the primary OB team of Dr. Ray Garcia in [place]. We very briefly reviewed options for delivery including induction delivery locally vs. surgical delivery, which I am not sure if she would need to be referred to our Province Archivist colleagues in [place] for that procedure. They are leaning towards a timely induction delivery locally in [place] at this time. Dr. Ramirez is aware [...] recommend maternal testing for antiphospholipid antibodies - hvmg-7-ynnqizozbvmy antibodies, lupus anticoagulation and anticardiolipin antibodies. We are happy to see her back after her loss for review of pathology and lab results, to help guide care for any future pregnancies. Procedure Note Melo Odonnell MD - 07/15/2023 Comp Follow Up ----- Pat. Name: ETIENNE CAMARILLO Study Date: 07/15/2023 9:45am Pat. NO: [id number] Referring MD: ESME RAMIREZ Site: [facility] General Surgery Physician Assistant: Lovely Penaloza RDMS : 1990 Age: 32 ----- INDICATION ----- Early Onset FGR on previous u/s DEMISE METHOD ----- Transabdominal ultrasound examination. View: Sufficient ----- Morales . Number of fetuses: 1 DATING ----- DateDetailsGest. age RODGER LMP 01/27/2023ycle: irregular, long [id number] w + 1 d 11/03/2023 Prior assessment [...] 0 lb 7 oz EFW by Hadlock ([id number]) ANATOMY ----- Gender: uncertain. MATERNAL STRUCTURES ----- Cervix Visualized Appearance: Appears Closed Approach - Transabdominal Right Ovary Not examined Left Ovary Not examined RECOMMENDATION ----- Findings reviewed with Etienne and her partner - this was a possibilitybut not anticipated by them or by our team. We have notified the primary OB team of Dr. Ray Garcia in [place].We very briefly reviewed options for delivery including induction deliverylocally vs. surgical delivery, which I am not sure if she would need to be referred to ourOb/Machine Wood Sander colleagues in [place] for that procedure. They are leaningtowards a timely induction delivery locally in [place] at this time. Dr. Ramirez is awareand [...] I recommend maternal testing for antiphospholipid antibodies -ksvc-2-aopeamgsoovm antibodies, lupus anticoagulation and anticardiolipinantibodies. We are [...] based on US evaluation. Melo Odonnell MD [facility] ORDERAB LES from Last 3 Months Care Teams Computer Game Programmer Relationship Specialty Start Date End Date Raven Laguna MD [facility] [address] [place] [address] PCP - General pipe smoker machine operator 04/23/23 Lamine Pizarro MD [address] [place] [address] Nephrology 04/23/23
--- OUTSIDE RECORDS SUMMARY | 2023-10-09 06:51 | XMS_ITS | Encounter Summary ---
Author Name Unknown Organization [place] Address [address] [place] [address]. [place] [address] Care Team Providers Care Wash Oil Pump Operator Helper Name Role Phone Lamine Pizarro MD Unavailable [phone] Raven Laguna MD Primary Care Provider [phone] Encounter Details Date Type Department Care Team (Latest Contact Info) Description 07/10/2023 Travel Social History Tobacco Use Types Packs/Day Years Used Date Smoking Tobacco: Never Assessed Adolescent Education Answer Date Record ed Getting School Help Needed Not on file 04/22 Comments Yes Sex and Gender Information Value Date Recorded Sex Assigned at Female 06/19/2023 11:52 AM SUCTION DRUM DRIER OPERATOR Gender Identity Female 06/19/2023 11:52 AM SUCTION DRUM DRIER OPERATOR Sexual Orientation Straight 06/19/2023 11 :52 AM SUCTION DRUM DRIER OPERATOR documented as of this encounter Plan of Treatment Not on file documented as of this encounter Visit Diagnoses Not on filedocumented in this encounter Care Teams Wash Oil Pump Operator Helper Relationship Specialty Start Date End Date Raven Laguna MD [facility] [address] [place] [address] PCP - General plycor operator 04/23/23 Lamine Pizarro MD [address] [place] [address] Nephrology 04/23/23 documented as of this encounter
--- OUTSIDE RECORDS SUMMARY | 2023-10-09 06:51 | XMS_ITS | Encounter Summary ---
Author Name Unknown Organization [place] Address [facility] [place] [address] Care Team Providers Care Stagecraft Teacher Name Role Phone Lamine Pizarro MD Unavailable [phone] Raven Laguna MD Primary Care Provider [phone] Encounter Details Date Type Department Care Team (Late st Contact Info) Description 08/20/2023 Care Coordination [facility]aternal Medicine [address] [place] [address] Elvira Martin RN Social History Tobacco Use Types Packs/Day Years Used Date Smoking Tobacco: Never Assessed Adolescent Education Answer Date Record ed Getting School Help Needed Not on file 04/22 Sex and Gender Information Value Date Recorded Sex Assigned at Female 06/19/2023 11:52 AM SPA EXPERIENCE COORDINATOR Gender Identity Female 06/19/2023 11:52 AM SPA EXPERIENCE COORDINATOR Sexual Orientation Straight 06/19/2023 11 :52 AM SPA EXPERIENCE COORDINATOR documented as of this encounter Plan of Treatment Not on file documented as of this encounter Visit Diagnoses Not on filedocumented in this encounter Care Teams Stagecraft Teacher Relationship Specialty Start Date End Date Raven Laguna MD [facility] [address] [place] [address] PCP - General gambling floor supervisor 04/23/23 Lamine Pizarro MD [address] [place] [address] Nephrology 04/23/23 documented as of this encounter
--- OUTSIDE RECORDS SUMMARY | 2023-10-09 06:51 | XMS_ITS | Encounter Summary ---
Author Name Unknown Organization [facility] Address [address] [place] [address]. [place] [address] Care Team Providers Care Pattern Clerk Name Role Phone Lamine Pizarro MD Unavailable [phone] Raven Laguna MD Primary Care Provider [phone] Reason for Referral * Consultation (Routine: Next available opening) - Pending Review Specialty Diagnoses / Procedures Referred By Kevin montalvo Referred To Contact Diagnoses related condition, antepartum Esme Ramirez MD [address] [place] [address] Maternal Med [address] [facility] [address] [place] [address] Referral ID Status Reason Start Date Expiration Date V isits Requested Visits Authorized [id number] Pending Review 08/15/2023 08/14/2024 1 1 Question Answer Preferred Location: [facility] [place] ROD[place] 11/10/2023 Ultrasound MFM Recommendation US PROC NONE MFM Issue OTHER (enter details in Comments) - HTN, demise, hx of complications of child MFM Consultation (unrelated to Ultrasound findings): Yes Inflammatory Bowel Disease Clinic: Joint MFM and GI Consultation: No Chronic Kidney Disease: Joint MFM and Nephrology Consultation No Genetic Counseling Consultation: No fax [facility] Esme Ramirez [phone] Comments There is no height or weight on file to calculate BMI. >> Patient may proceed with recommendations for further testing as directed by the Maternal Medicine Specialist >> >> If requesting Echo: MFM will determine appropriate location for exam due to indication. Please be aware that coverage of these services is subject to the terms and limitations of your health insurance plan. Call member services at your health plan with any benefit or coverage questions. Encounter Details Date Type Department Care Team (Latest Contact Info) Description 08/15/2023 Transcribe Orders [facility] [place] [address] [facility] [address] [place] [phone] Esme Ramirez MD [address] [place] [address] related condition, antepartum (Primary Dx) Social History Tobacco Use Types Packs/Day Years Used Date Smoking Tobacco: Never Assessed Adolescent Education Answer Date Record ed Getting School Help Needed Not on file 04/22 Sex and Gender Information Value Date Recorded Sex Assigned at Female 06/19/2023 11:52 AM IMPLEMENT MECHANIC Gender Identity Female 06/19/2023 11:52 AM IMPLEMENT MECHANIC Sexual Orientation Straight 06/19/2023 11 :52 AM IMPLEMENT MECHANIC documented as of this encounter Plan of Treatment Scheduled Referrals Name Type Priority Associated Diagnoses Orde r Schedule Mat Med Ctr Referral - Referral Routine: Next available opening related condition, antepartum Expected: 08/15/2023 (Approximate), Expires: 02/11/2024 documented as of this encounter Visit Diagnoses Diagnosis related condition, antepartum- Primary documented in this encounter Care Teams Pattern Clerk Relationship Specialty Start Date End Date Raven Laguna MD [facility] [address] [place] [address] PCP - General flame brazing machine operator 04/23/23 Lamine Pizarro MD [address] [place] [address] Nephrology 04/23/23 documented as of this encounter
--- OUTSIDE RECORDS SUMMARY | 2023-10-09 06:51 | XMS_ITS | Encounter Summary ---
Author Name Unknown Organization [place] Address [facility] [place] [address] Care Team Providers Care Logistics Support Name Role Phone Lamine Pizarro MD Unavailable [phone] Raven Laguna MD Primary Care Provider [phone] Reason for Visit * Reason Comments Ultrasound RL2-FGR, Subopt, CHT N, Echogenic bowel Encounter Details Date Type Department Care Team (Late st Contact Info) Description 07/15/2023 10:00 AM SOCK LINER Office Visit [facility] Maternal Medicine Center [place] [address] [facility] [address] [place] [address] Melo Odonnell MD [address] [place] [address] demise, greater than 22 weeks, antepartum, single or unspecified fetus (Primary Dx) Social History Tobacco Use Types Packs/Day Years Used Date Smoking Tobacco: Never Assessed Adolescent Education Answer Date Record ed Getting School Help Needed Not on file 04/22 Comments Yes Sex and Gender Information Value Date Recorded Sex Assigned at Female 06/19/2023 11:52 AM SOCK LINER Gender Identity Female 06/19/2023 11:52 AM SOCK LINER Sexual Orientation Straight 06/19/2023 11 :52 AM SOCK LINER documented as of this encounter Progress Notes [...] OB team of Dr. Ray Garcia in [place]. We very briefly reviewedoptions for delivery including induction delivery locally vs. surgical delivery, which I am not sure if she would need to be referred to our Director Of Tax Services colleagues in [place] for that procedure. They are leaning towards a timely induction delivery locally in [place] at this time. Dr. Ramirez is aware [...] recommend maternal testing for antiphospholipid antibodies - erip-9-nqjeyvxbgkrn antibodies, lupus anticoagulation and anticardiolipin antibodies. We are happy to see her back after her loss for review of pathology and lab results, to help guide care for any future pregnancies. Melo Odonnell MD Maternal Medicine LINER documented in this encounter Plan of Treatment Not on file documented as of this encounter Visit Diagnoses Diagnosis demise, greater than 22 weeks, antepartum, single or unspecified fetus- Primary documented in this encounter Care Teams Logistics Support Relationship Specialty Start Date End Date Raven Laguna MD [facility] [address] [place] [address] PCP - General purse maker 04/23/23 Lamine Pizarro MD [address] [place] [address] Nephrology 04/23/23 documented as of this encounter
--- OUTSIDE RECORDS SUMMARY | 2023-10-09 06:51 | XMS_ITS | Encounter Summary ---
Author Name Unknown Organization [place] Address [facility] [place] [address] Care Team Providers Care Intensive Care Nurse Name Role Phone Lamine Pizarro MD Unavailable [phone] Raven Laguna MD Primary Care Provider [phone] Encounter Details Date Type Department Care Team (Late st Contact Info) Description 08/20/2023 Telephone [facility] Maternal Medicine Center [address] [place] [address] Lena Livingston, RN Social History Tobacco Use Types Packs/Day Years Used Date Smoking Tobacco: Never Assessed Adolescent Education Answer Date Record ed Getting School Help Needed Not on file 04/22 Sex and Gender Information Value Date Recorded Sex Assigned at Female 06/19/2023 11:52 AM DYED YARN OPERATOR Gender Identity Female 06/19/2023 11:52 AM DYED YARN OPERATOR Sexual Orientation Straight 06/19/2023 11 :52 AM DYED YARN OPERATOR documented as of this encounter Miscellaneous Notes * Telephone Encounter - Lena Livingston RN - 08/20/2023 12:50 PM CDT LM for patient to call M RN coordinator at [phone] regarding referral to [facility] for hx IUFD, 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 Does patient follow with nephrology? Has pt had renal biopsy? Need records for nephrology. Was patient induced with first at 36 weeks due to pree? Lena Livingston RN documented in this encounter Plan of Treatment Not on file documented as of this encounter Visit Diagnoses Not on filedocumented in this encounter Care Teams Intensive Care Nurse Relationship Specialty Start Date End Date Raven Laguna MD [facility] [address] [place] [address] PCP - General national account representative 04/23/23 Lamine Pizaror MD [address] [place] [address] Nephrology 04/23/23 documented as of this encounter
--- OUTSIDE RECORDS SUMMARY | 2023-10-09 06:51 | XMS_ITS | Encounter Summary ---
Author Name Unknown Organization [place] Address [facility] [place] [address] Care Team Providers Care General Counselor Name Role Phone Lamine Pizarro MD Unavailable [phone] Raven Laguna MD Primary Care Provider [phone] Encounter Details Date Type Department Care Team (Late st Contact Info) Description 08/20/2023 Care Coordination [facility] Maternal Medicine [address] [place] [address] Lena Livingston RN Social History Tobacco Use Types Packs/Day Years Used Date Smoking Tobacco: Never Assessed Adolescent Education Answer Date Record ed Getting School Help Needed Not on file 04/22 Sex and Gender Information Value Date Recorded Sex Assigned at Female 06/19/2023 11:52 AM COLORED LEATHER SETTER Gender Identity Female 06/19/2023 11:52 AM COLORED LEATHER SETTER Sexual Orientation Straight 06/19/2023 11 :52 AM COLORED LEATHER SETTER documented as of this encounter Plan of Treatment Not on file documented as of this encounter Visit Diagnoses Not on filedocumented in this encounter Care Teams General Counselor Relationship Specialty Start Date End Date Raven Laguna MD [facility] [address] [place] [address] PCP - General website developer 04/23/23 Lamine Pizarro MD [address] [place] [address] Nephrology 04/23/23 documented as of this encounter
--- OUTSIDE RECORDS SUMMARY | 2023-10-09 06:51 | XMS_ITS | Encounter Summary ---
Author Name Unknown Organization [place] Address [address] [place] [address] Care Team Providers Care Computer Language Coder Name Role Phone Lamien Pizarro MD Unavailable Raven Laguna MD Primary Care Provider [phone] Encounter Details Date Type Department Care Team (Latest Contact Info) Description 08/28/2023 Travel Social History Tobacco Use Types Packs/Day Years Used Date Smoking Tobacco: Former Cigarettes 0.5 2 Adolescent Education Answer Date Record ed Getting School Help Needed Not on file 04/22 Sex and Gender Information Value Date Recorded Sex Assigned at Female 06/19/2023 11:52 AM UNIX ADMINISTRATOR Gender Identity Female 06/19/2023 11:52 AM UNIX ADMINISTRATOR Sexual Orientation Straight 06/19/2023 11 :52 AM UNIX ADMINISTRATOR documented as of this encounter Plan of Treatment Not on file documented as of this encounter Visit Diagnoses Not on filedocumented in this encounter Care Teams Computer Language Coder Relationship Specialty Start Date End Date Raven Laguna MD [facility] [address] [place] [address] PCP - General chief operator synthesis 04/23/23 Lamine Pizarro MD [address] [place] [address] Nephrology 04/23/23 documented as of this encounter
--- OUTSIDE RECORDS SUMMARY | 2023-10-09 06:51 | XMS_ITS | Encounter Summary ---
Author Name Unknown Organization [place] Address [address] [place] [address]. [place] [address] Care Team Providers Care Box Blank Machine Operator Name Role Phone Lamine Pizarro MD Unavailable [phone] Raven Laguna MD Primary Care Provider [phone] Encounter Details Date Type Department Care Team (Latest Contact Info) Description 08/21/2023 Travel Social History Tobacco Use Types Packs/Day Years Used Date Smoking Tobacco: Never Assessed Adolescent Education Answer Date Record ed Getting School Help Needed Not on file 04/22 Sex and Gender Information Value Date Recorded Sex Assigned at Female 06/19/2023 11:52 AM SASH REPAIRER Gender Identity Female 06/19/2023 11:52 AM SASH REPAIRER Sexual Orientation Straight 06/19/2023 11 :52 AM SASH REPAIRER documented as of this encounter Plan of Treatment Not on file documented as of this encounter Visit Diagnoses Not on filedocumented in this encounter Care Teams Box Blank Machine Operator Relationship Specialty Start Date End Date Raven Laguna MD [facility] [address] [place] [address] PCP - General stock broker 04/23/23 Lamine Pizarro MD [address] [place] [address] Nephrology 04/23/23 documented as of this encounter
--- OUTSIDE RECORDS SUMMARY | 2023-10-09 06:51 | XMS_ITS | Encounter Summary ---
Author Name Unknown Organization [place] Address [address] [place] [address]. [place] [address] Care Team Providers Care Transport Nurse Name Role Phone Lamine Pizarro MD Unavailable [phone] Raven Laguna MD Primary Care Provider [phone] Encounter Details Date Type Department Care Team (Latest Contact Info) Description 08/13/2023 Medical Correspondence [facility] Info [facility] [address] [place] [id number] Scan, Non-Provider RECORD Social History Tobacco Use Types Packs/Day Years Used Date Smoking Tobacco: Never Assessed Adolescent Education Answer Date Record ed Getting School Help Needed Not on file 04/22 Comments Yes Sex and Gender Information Value Date Recorded Sex Assigned at Female 06/19/2023 11:52 AM BLOW TORCH OPERATOR Gender Identity Female 06/19/2023 11:52 AM BLOW TORCH OPERATOR Sexual Orientation Straight 06/19/2023 11 :52 AM BLOW TORCH OPERATOR documented as of this encounter Plan of Treatment Not on file documented as of this encounter Visit Diagnoses Not on filedocumented in this encounter Care Teams Transport Nurse Relationship Specialty Start Date End Date Raven Laguna MD [facility] [address] [place] [address] PCP - General singer and unloader 04/23/23 Lamine Pizarro MD [address] [place] [address] Nephrology 04/23/23 documented as of this encounter
--- OUTSIDE RECORDS SUMMARY | 2023-10-09 06:51 | XMS_ITS | Encounter Summary ---
Author Name Unknown Organization [place] Address [address] [place] [address]. [place] [address] Care Team Providers Care Mastic Floor Layer Name Role Phone Lamine Pizarro MD Unavailable [phone] Raven Laguna MD Primary Care Provider [phone] Reason for Referral * Consultation (Routine: Next available opening) - Pending Review Specialty Diagnoses / Procedures Referred By Kevin montalvo Referred To Contact Diagnoses Encounter for preconception consultation Amarilys Munguia CNM [address] [place] [address] Referral ID Status Reason Start Date Expiration Date V isits Requested Visits Authorized [id number] Pending Review 08/20/2023 08/19/2024 1 1 Question Answer MFM Consult Yes Comments MFM PAC preconception consult Encounter Details Date Type Department Care Team (Late st Contact Info) Description 08/20/[address] [facility] [place] [address] [place] [address] Lena Livingston RN Encounter for preconception consultation (Primary Dx) Social History Tobacco Use Types Packs/Day Years Used Date Smoking Tobacco: Never Assessed Adolescent Education Answer Date Record ed Getting School Help Needed Not on file 04/22 Sex and Gender Information Value Date Recorded Sex Assigned at Female 06/19/2023 11:52 AM WOOD TILE INSTALLATION HELPER Gender Identity Female 06/19/2023 11:52 AM WOOD TILE INSTALLATION HELPER Sexual Orientation Straight 06/19/2023 11 :52 AM WOOD TILE INSTALLATION HELPER documented as of this encounter Plan of Treatment Scheduled Referrals Name Type Priority Associated Diagnoses Orde r Schedule MFM Office Visit Referral Routine: Next available opening Encounter for preconception consultation Expected: 09/20/2023 (Approximate), Expires: 08/19/2024 documented as of this encounter Visit Diagnoses Diagnosis Encounter for preconception consultation- Primary documented in this encounter Care Teams Mastic Floor Layer Relationship Specialty Start Date End Date Raven Laguna MD [address] [address] PCP - General cupola melter helper 04/23/23 Lamine Pizarro MD [address] [place] [address] Nephrology 04/23/23 documented as of this encounter
--- OUTSIDE RECORDS SUMMARY | 2023-10-09 06:51 | XMS_ITS | Encounter Summary ---
Author Name Unknown Organization [place] Address [facility] [place] [address] Care Team Providers Care Cable Respooler Name Role Phone Lamine Pizarro MD Unavailable [phone] Raven Laguna MD Primary Care Provider [phone] Reason for Visit * Reason Comments Consult Preconception- Hx 23 week IUFD, CHTN, Anx/Dep, Hx PreE with SF, Hx CS x 1, Proteinuria Encounter Details Date Type Department Care Team (Late st Contact Info) Description 08/20/2023 PRE VISIT [facility] Maternal Medicine [facility] [address] [place], [place] [address] Elvira Martin, RN Consult (Preconception- Hx 23 week IUFD, CHTN, Anx/Dep, Hx PreE with SF, Hx CS x 1, Proteinuria) Social History Tobacco Use Types Packs/Day Years Used Date Smoking Tobacco: Never Assessed Tobacco Cessation:Counseling Given: Not Answered Adolescent Education Answer Date Record ed Getting School Help Needed Not on file 04/22 Sex and Gender Information Value Date Recorded Sex Assigned at Female 06/19/2023 11:52 AM PUBLIC WORKS TECHNICIAN Gender Identity Female 06/19/2023 11:52 AM PUBLIC WORKS TECHNICIAN Sexual Orientation Straight 06/19/2023 11 :52 AM PUBLIC WORKS TECHNICIAN documented as of this encounter Plan of Treatment Not on file documented as of this encounter Visit Diagnoses Not on filedocumented in this encounter Care Teams Cable Respooler Relationship Specialty Start Date End Date Raven Laguna MD [address] [address] PCP - General special makeup fx artist instructor 04/23/23 Lamine Pizarro MD [address] [place] [address] Nephrology 04/23/23 documented as of this encounter
--- OUTSIDE RECORDS SUMMARY | 2023-10-09 06:51 | XMS_ITS | Encounter Summary ---
Author Name Unknown Organization [place] Address [address] [place] [address]. [place] [address] Care Team Providers Care Power Checker Name Role Phone Lamine Pizarro MD Unavailable Raven Laguna MD Primary Care Provider [phone] Encounter Details Date Type Department Care Team (Latest Contact Info) Description 07/15/2023 Travel Social History Tobacco Use Types Packs/Day Years Used Date Smoking Tobacco: Never Assessed Adolescent Education Answer Date Record ed Getting School Help Needed Not on file 04/22 Comments Yes Sex and Gender Information Value Date Recorded Sex Assigned at Female 06/19/2023 11:52 AM BRAND PROTECTION MANAGER Gender Identity Female 06/19/2023 11:52 AM BRAND PROTECTION MANAGER Sexual Orientation Straight 06/19/2023 11 :52 AM BRAND PROTECTION MANAGER documented as of this encounter Plan of Treatment Not on file documented as of this encounter Visit Diagnoses Not on filedocumented in this encounter Care Teams Power Checker Relationship Specialty Start Date End Date Raven Laguna MD [facility] [address] [place] [address] PCP - General passenger service agent 04/23/23 Lamien Pizarro MD [address] [place] [address] Nephrology 04/23/23 documented as of this encounter
--- OUTSIDE RECORDS SUMMARY | 2023-10-09 06:51 | XMS_ITS | Encounter Summary ---
Author Name Unknown Organization [facility] Address [address] [place] [address] Care Team Providers Care Christian Education Director Name Role Phone Lamine Pizarro MD Unavailable [phone] Raven Laguna MD Primary Care Provider [phone] Reason for Referral * Diagnostic Imaging CT Scan (Routine) - Pending Review Specialty Diagnoses / Procedures Referred By Contac t Referred To Contact Radiology. Diagnoses Encounter for preconception consultation Procedures [facility]read Stefano Livingston MD [address] [facility] [address] [place] [address] Referral ID Status Reason Start Date Expiration Date V isits Requested Visits Authorized [id number] Pending Review 08/28/2023 08/27/2024 1 1 Reason for Visit * Reason Comments Consult [id number]/ o IUFD 2nd * Consultation (Routine: Next available opening) - Pending Review Specialty Diagnoses / Procedures Referred By Contdhara montalvo Referred To Contact Diagnoses Encounter for preconception consultation Amarilys Munguia CNM [address] [place] [address] Referral ID Status Reason Start Date Expiration Date V isits Requested Visits Authorized [id number] Pending Review 08/20/2023 08/19/2024 1 1 Encounter Details Date Type Department Care Team (Latest Contact Info) Description 08/28/2023 1:30 PM CDT Office Visit [facility] [place] [address] [place], [place] [address] Amarilys Munguia CNM [address] [place] [address] Libby Kaye MD [address] [place] [address] Stefano Livingston MD [address] [facility] [address] [place] [address] History of demise, not currently (Primary Dx); Encounter for preconception consultation Social History Tobacco Use Types Packs/Day Years Used Date Smoking Tobacco: Former Cigarettes 0.5 2 Tobacco Cessation:Counseling Given: Not Answered Adolescent Education Answer Date Record ed Getting School Help Needed Not on file 04/22 Sex and Gender Information Value Date Recorded Sex Assigned at Female 06/19/2023 11:52 AM VARIETY SAW OPERATOR Gender Identity Female 06/19/2023 11:52 AM VARIETY SAW OPERATOR Sexual Orientation Straight 06/19/2023 11 :52 AM VARIETY SAW OPERATOR documented as of this encounter Last Filed [...] documented in this encounter Progress Notes * Stefano Livingston MD - 08/28/2023 1:30 PM CDT Images from the original note were not included. Maternal- Medicine Consultation Darius Lange : 1990 REFERRAL: Darius Lange is a 32 [address] Dr[address] Ramirez from [facility] for MFM preconception consultation. HPI: Darius Lange is a 32 year old here for [facility] preconception consultation due to a historyof intrauterine demise. She is here with her , Isaac. Darius was diagnosed with an IUFD on 07/15/2023 at 23w1d with fetus measuring 17 weeks gestation. was notable for chronic hypertension, prior section, severe growth restriction, nephropathy, a history of severe preeclampsia, and history of hemorrhage. She had severe growth restriction at time of initial anatomy scan, confirmed as EFW 3% on her level 2 USwith MF. She also had proteinuria with her new OB labs, with a UPC of 0.8 and a 24 hour urine of 399 mg. She was referred to Nephrology, who planned to follow up with a renal biopsy following delivery. She also had a normal renal ultrasound. After diagnosis of intrauterine demise, she had an induction and delivered baby Joel via on 07/16. Chromosomal microarray from the tissue was 46 XY. Placental tissue grew out a small amount of streptococcus bovis, which is likely a contaminant from delivery. She had negative antiphospholipid antibody testing. Infectious workup was not notable for recent CMV, parvovirus, or toxoplasmosis infection. KB was also negative. Initial anatomic diagnosis demonstrated an EFW <3% and hypercoiled umbilical cord which narrows to a diameter of 0.2 cm at the umbilical insertion site. Placental pathology again demonstrated the hypercoiled cord and 64 g placenta (181 g expected at this gestational age). Joel was also very small at , weighing just over 100 gms at . In the period, she had ongoing pain and presented to the ED multiple times due to right lower quadrant abdominal pain and vaginal bleeding. She was discharged from the ED without intervention; her primary OBGYN suspected acute endometritis and Darius was treated initially in the outpatient setting with PO Augmentin. Prior to finishing her antibiotics course, she returned to the hospital due to continued pain and vaginal bleeding. She received IV antibiotics and was discharged after24 hours. She then returned again with the same symptoms; she received 4 days of IV antibiotics hadhysteroscopy with dilation and curettage on 07/28/2023. There was some concern for placenta accreta spectrum on surgical findings due to brisk bleeding from the placental bed with curettage, but surgical pathology was not consistent with accreta. Surgery was notable for EBL 250, and she received uterotonics including methergine and cytotec. She was started on nifedipine during that hospital stay due to elevated blood pressures. Darius reports that since that hospitalization, bleeding improved and eventually resolved, but she has ongoing pain. Ibuprofen helps, but she is noticing more acid reflux with using ibuprofen. The pain continues to be mainly on her right and is bothersome. It also continues to act as a reminder of their family's loss and has made it difficult to start the emotional healing process. For the lastfew days, Darius has also noticed that her vaginal bleeding has resumed. She states that the bleeding pattern has been abnormal; it will go in spurts of heavy, gel-like red blood, followed by as much as 12 hours without any bleeding. She thought it was initially her period, but notes that the pattern is different from what she typically experiences with her periods. Obstetrics History: OB History Para Term AB Living 2 2 0 2 0 1 SAB IAB Ectopic Multiple Live Births 0 0 0 0 1 # Outcome Date GA Lbr Aditya/2nd Weight Sex Delivery Anes PTL Lv 2 07/16/23 23w2d M FD Comments: IUFD 1 08/16/21 36w0d 2.523 kg (5 lb 9 oz) CS-LTranv Spinal RONIT Complications: Pre-eclampsia added to pre-existing hypertension Past Medical History: Past Medical History: Diagnosis Date HTN (hypertension) Past Surgical History: Past Surgical History: Procedure Laterality Date SECTION 08/16/2021 CHOLECYSTECTOMY 02/17/2015 laparoscopic Current Medications: No current outpatient medications on file. Allergies: Patient has no allergy information on record. Imaging: TVUS images from study 08/25/23 sent to Radiology on CD; over-read ordered and pending PHYSICAL EXAM: LMP 01/27/2023 BP (!) 142/83 (BP Location: Left arm, Patient Position: Sitting, Cuff Size: Adult Regular) Pulse 98 Resp 20 LMP 01/27/2023 SpO2 100% ASSESSMENT/PLAN: 32 year old here for MFM preconception consultation due to history of IUFD. # History of IUFD # History of Severe FGR - The most common causes of in developed countries are congenital or karyotypic anomalies, placental problems associated with growth restriction, and maternal medical diseases such as infection, diabetes mellitus, or hypertensive disorders. Umbilical cord accidents are also a cause of demise. - In Shantell's case, suspect abnormal placentation/hypercoiled umbilical cord with possible complicating factor of cord accident is the most likely cause of demise, as these findings were noted on the preliminary autopsy. Discussed that APLS workup and infectious workup were bothnegative, although can only definitively rule out infectious causes with amniocentesis, which was not performed. Chromosomal microarray was also negative, making genetic cause of demise less likely, and no congenital anomalies have been noted for Joel. Placental pathology and Joel's autopsy are most convincing for placental etiology given severe growth restriction, small size ofthe placenta, and hypercoiled cord with focal narrowing at cord insertion site. - Discussed that, given this suspected cause and history of previously normal , suspect that Darius has a relatively low risk of recurrent intrauterine demise with a future , particularly if cord accident were a contributing factor. Also discussed that the location within the uterus for implantation and placentation cannot be influenced in any way. Recommendations: Would wait to attempt conception until the etiology of Darius's ongoing pain has been elucidated and a more regular bleeding pattern/periods have been established. Early ultrasound to establish RODGER Low dose aspirin started at 12 weeks given history of preeclampsia with severe features Will follow in her subsequent pregnancies for early anatomy US at 15-16 weeks and level 2 ultrasound at 18-20 weeks as well as frequent monitoring of the infant's growth and well-being and weekly BPPat 32 weeks. # RLQ Abdominal Pain # History of Retained Placenta - Reviewed Darius's course with her. Discussed that ongoing abdominal pain is unexpected and worth continued workup. - Ongoing abdominal pain could have several etiologies, including remaining retained placenta that was not removed at time of hysteroscopy D&C/suction D&C in July due to ongoing bleeding. Would also consider arteriovenous malformation (AVM) given the higher than expected EBL at the time ofher procedure to remove her retained products of conception. - Again reviewed Darius's ultrasound from 07/15/2023, at the time of her IUFD diagnosis. Placenta at that time is above the level of where a scar would be, lessening concern for placenta accreta at her prior hysterotomy site. No AVM seen at that time, although cannot entirely rule this out. - bHCG trended down to 0 on outpatient testing. Subsequent bHCG was still negative, but greater than 0. Will repeat today to trend. - Will repeat CBC today as well to trend WBC and hemoglobin, given ongoing bleeding and having previously been treated for endometritis. - Darius's transvaginal ultrasound images from 08/24 were delivered to Radiology. Will follow up the read from our institution. - If concern on imaging for continued retained products of conception, would recommend repeat hysteroscopy with dilation and curettage. - If no additional answers, would consider imaging to assess for AVM. - We will call Darius once the read of her imaging studies returns to guide next steps. # History of Preeclampsia # Concern for Chronic Hypertension - History of preeclampsia with severe features, delivered at 36 weeks in Darius's first - She also notably has elevated blood pressures at doctor's visits. She notes her blood pressures are rarely elevated at home. - Discussed following up with Dr. Ramirez or her primary care provider to establish good control of her chronic hypertension prior to attempting future with use of antihypertensive medications that are safe in and goal SBP < 140 and DBP < 90. # Proteinuria - Initially noted at new OB visit in last with UPC 0.8 - Patient referred to Nephrology; noted to have normal ultrasound. Plan to follow up with potentialrenal biopsy. - Per patient's review of her lab results, subsequent UPC 0.0 in period - Recommend continued follow up with Nephrology - Will obtain CMP today. The patient was seen and evaluated with Dr. Livingston. Thank you for allowing us to participate in the care of your patient. Please do not hesitate to contact us if you have questions. Nicolás Fraser MD CREW DIRECTOR PGY-2 Physician Attestation I, Stefano Livingston MD, saw this patient and agree with the findings and plan of care as documentedin the note. Items personally reviewed/procedural attestation: past OB history, vitals, labs, and imaging and agree with the interpretation documented in the note. I spent a total of 80 minutes on the date of this encounter including preparing to see the patient (reviewing medical records/tests), in direct [id number] contact with the patient during her visit with the majority spent counseling and discussing the plan of care and documenting the visit in the electronic medical record. Please see note for details. Stefano Livingston MD documented in this encounter Nursing Notes * Lena Lane RN - 08/28/2023 1:30 PM CDT Darius was seen in [facility] Clinic today for h/o IUFD, CHTN, pre-E, proteinuria with NOB with 2nd . Dr. Livingston into see patient. Pt was sent to lab. Pt brought in disk of images and was takento film room and overread ordered. Please see [facility] consult note for recommendations. Patient was discharged ambulatory and stable. documented in this encounter Plan of Treatment Not on file documented as of this encounter Procedures Procedure Name Priority Date/Time Associated Diagnosis Comments ANTI NUCLEAR INDERJIT IGG BY IFA WITH REFLEX Routine 08/28/2023 3:18 PM CDT History of demise, not currently HCG QUANTITATIVE Routine 08/28/2023 3:18 PM CDT History of demise, not currently COMPREHENSIVE METABOLIC PANEL Routine 08/28/2023 3:18 PM CDT History of demise, not currently CBC WITH PLATELETS Routine 08/28/2023 3: 18 PM CDT History of demise, not currently documented in this encounter Results * hCG Quantitative (08/28/2023 3:18 PM CDT) [...] LAB - BLOOD ORDERABL ES UR LABORATORY [facility] Acute Care Lab [address] [facility] [place] [address], [facility] * Comprehensive metabolic panel (08/28/2023 3:18 [...] LAB - BLOOD ORDERABL ES UR LABORATORY [facility] Acute Care Lab [facility] [facility] [place] [address] * (ABNORMAL) CBC with Platelets (08/28/2023 3:18 [...] LAB - BLOOD ORDERABL ES UR LABORATORY [facility] Acute Care Lab [address] [facility] [place] [address] * Anti Nuclear Inderjit IgG by IFA [...] [facility]/PROT/ENDO [facility] Core/Prot/Endo [address] [facility], [address] * [facility] (08/28/2023 12:05 AM [...] Jose Morrow MD - 09/02/2023 EXAMINATION: [facility] OVERREAD [...] documented in this encounter Visit Diagnoses Diagnosis History of demise, not currently - Primary Encounter for preconception consultation Encounter for preconception consultation documented in this encounter Care Teams Christian Education Director Relationship Specialty Start Date End Date Raven Laguna MD [facility] [address] [place] [address] PCP - General wildfire prevention specialist 04/23/23 Lamine Pizarro MD [address] [place] [address] Nephrology 04/23/23 documented as of this encounter
--- OUTSIDE RECORDS SUMMARY | 2023-10-09 06:51 | XMS_ITS | Encounter Summary ---
Author Name Unknown Organization [facility] Address [facility] [place] [address] Care Team Providers Care Hoop Punch Operator Helper Name Role Phone Lamine Pizarro MD Unavailable [phone] Raven Laguna MD Primary Care Provider [phone] Encounter Details Date Type Department Care Team (Late st Contact Info) Description 08/20/2023 Telephone [facility] [address] [place] [address] Elvira Martin, RN Social History Tobacco Use Types Packs/Day Years Used Date Smoking Tobacco: Never Assessed Adolescent Education Answer Date Record ed Getting School Help Needed Not on file 04/22 Sex and Gender Information Value Date Recorded Sex Assigned at Female 06/19/2023 11:52 AM ORTHOPEDIC MECHANIC Gender Identity Female 06/19/2023 11:52 AM ORTHOPEDIC MECHANIC Sexual Orientation Straight 06/19/2023 11 :52 AM ORTHOPEDIC MECHANIC documented as of this encounter Miscellaneous Notes * Telephone Encounter - Elvira Martin RN - 08/20/2023 1:22 PM CDT Pt returning call. 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 Willing to sign SAVANNAH. Gave email address. Denies further questions at this time. Elvira Martin RN documented in this encounter Plan of Treatment Not on file documented as of this encounter Visit Diagnoses Not on filedocumented in this encounter Care Teams Hoop Punch Operator Helper Relationship Specialty Start Date End Date Raven Laguna MD [address] [address] PCP - General machine deburrer 04/23/23 Lamine Pizarro MD [address] [place] [address] Nephrology 04/23/23 documented as of this encounter
--- OUTSIDE RECORDS SUMMARY | 2023-10-09 06:51 | XMS_ITS | Encounter Summary ---
Author Name Unknown Organization [facility] Address [address] [place] [address] Care Team Providers Care Second Baker Name Role Phone Lamine Pizarro MD Unavailable [phone] Raven Laguna MD Primary Care Provider [phone] Reason for Referral * Diagnostic Imaging Ultrasound (Routine) - Pending Review Specialty Diagnoses / Procedures Referred By Contac t Referred To Contact Radiology. Diagnoses Encounter for follow-up ultrasound of anatomy growth restriction antepartum Procedures [facility] US Comprehensive Single F/U Melo Odonnell MD [address] [address] [place] [address] Referral ID Status Reason Start Date Expiration Date V isits Requested Visits Authorized [id number] Pending Review 06/24/2023 06/23/2024 1 1 MIC MOLD DESIGNER Reason for Visit * Diagnostic Imaging Ultrasound (Routine) - Pending Review Specialty Diagnoses / Procedures Referred By Contac t Referred To Contact Radiology. Diagnoses Encounter for follow-up ultrasound of anatomy growth restriction antepartum Procedures [facility] US Comprehensive Single F/U Melo Odonnell MD [address] [place] [address] Referral ID Status Reason Start Date Expiration Date V isits Requested Visits Authorized [id number] Pending Review 06/24/2023 06/23/2024 1 1 Encounter Details Date Type Department Care Team (Latest Contact Info) Description 07/15/2023 9:30 AM CERAMIC MOLD DESIGNER - 07/15/2023 11:59 PM CERAMIC MOLD DESIGNER Hospital Encounter [facility] [address] [place] [address] Melo Odonnell MD [address] [place] [address] Encounter for follow-up ultrasound of anatomy; growth restriction antepartum Discharge Disposition: Home or Self Care Social History Tobacco Use Types Packs/Day Years Used Date Smoking Tobacco: Never Assessed Adolescent Education Answer Date Record ed Getting School Help Needed Not on file 04/22 Comments Yes Sex and Gender Information Value Date Recorded Sex Assigned at Female 06/19/2023 11:52 AM CERAMIC MOLD DESIGNER Gender Identity Female 06/19/2023 11:52 AM CERAMIC MOLD DESIGNER Sexual Orientation Straight 06/19/2023 11 :52 AM CERAMIC MOLD DESIGNER documented as of this encounter Plan of Treatment Not on file documented as of this encounter Procedures Procedure Name Priority Date/Time Associated Diagnosis Comments [facility] US COMPREHENSIVE SINGLE F/U Routine 07/15/2023 10:14 AM CERAMIC MOLD DESIGNER Encounter for follow-up ultrasound of anatomy growth restriction antepartum documented in this encounter Results * [facility] US Comprehensive Single F/U (07/15/2023 10:14 AM CERAMIC MOLD DESIGNER) Anatomical Region Laterality Modality Ultrasound 07/15/2023 9:45 AM CERAMIC MOLD DESIGNER Impressions 07/15/2023 10:31 AM CERAMIC MOLD DESIGNER IMPRESSION ----- 1. Morales intrauterine at 23w [...] on US evaluation. Narrative 07/15/2023 10:31 AM CERAMIC MOLD DESIGNER ?Comp Follow Up ----- Pat. Name: ETIENNE LANGE ? Study Date: ??07/15/2023 9:45am Pat. NO: ??[id number] ?Referring ??MD: KRISTEL CASTILLO Site: ??[facility] ? Receiver Stocker: Lovely Penaloza RDMS : ??1990 ?Age: ?? [...] Biometry: BPD ?31.6 ?mm ? 15w 6d ?Hadbruna FAIRBANKS ?53.7 ?mm ? 17w 6d ?Nicolaides HC ?139.4 ?mm ?17w 2d ?Hadlock AC ?94.5 ?mm ? 15w 4d ? <1% ?Hadlock Femur ?29.9 ? mm ?19w 2d ?Hadlock Humerus ?27.3 ?mm ? 18w 5d ?Stephany Weight Calculation: EFW ? 190 ? g ? <1% ?Hadlock EFW (lb,oz) ? 0 lb 7 ?oz EFW by ?Hadlock ([id number]) ANATOMY ----- Gender: uncertain. MATERNAL STRUCTURES ----- Cervix ?Visualized ? Appearance: Appears Closed ? Approach - Transabdominal Right Ovary ?Not examined Left Ovary ?Not examined RECOMMENDATION ----- Findings reviewed with Etienne and her partner - this was a possibility but not anticipated by them or by our team. We have notified the primary OB team of Dr. Ray Garcia in [place]. We very briefly reviewed options for delivery including induction delivery locally vs. surgical delivery, which I am not sure if she would need to be referred to our Barker Operator colleagues in [place] for that procedure. They are leaning towards a timely induction delivery locally in [place] at this time. Dr. Castillo is aware [...] recommend maternal testing for antiphospholipid antibodies - xrqx-6-ervyadayewex antibodies, lupus anticoagulation and anticardiolipin antibodies. We are happy to see her back after her loss for review of pathology and lab results, to help guide care for any future pregnancies. Procedure Note Melo Odonnell MD - 07/15/2023 Comp Follow Up ----- Pat. Name: ETIENNE LANGE Study Date: 07/15/2023 9:45am Pat. NO: [id number] Referring MD: KRISTEL CASTILLO Site: [facility] Receiver Stocker: Lovely Penaloza RDMS : 1990 Age: 32 [...] 0 lb 7 oz EFW by Hadlock ([id number]) ANATOMY ----- Gender: uncertain. MATERNAL STRUCTURES ----- Cervix Visualized Appearance: Appears Closed Approach - Transabdominal Right Ovary Not examined Left Ovary Not examined RECOMMENDATION ----- Findings reviewed with Etienne and her partner - this was a possibilitybut not anticipated by them or by our team. We have notified the primary OB team of Dr. Ray Garcia in [place].We very briefly reviewed options for delivery including induction deliverylocally vs. surgical delivery, which I am not sure if she would need to be referred to ourOb/Reverberatory Skimmer colleagues in [place] for that procedure. They are leaningtowards a timely induction delivery locally in [place] at this time. Dr. Castillo is awareand [...] I recommend maternal testing for antiphospholipid antibodies -rxyh-2-parqoudfsumy antibodies, lupus anticoagulation and anticardiolipinantibodies. We are [...] antepartum documented in this encounter Care Teams Second Baker Relationship Specialty Start Date End Date Raven Laguna MD [facility] [address] [place] [address] PCP - General straightening press operator 04/23/23 Lamine Pizarro MD [address] [place] [address] Nephrology 04/23/23 documented as of this encounter
--- OUTSIDE RECORDS SUMMARY | 2023-10-09 06:51 | XMS_ITS | Clinical Summary ---
Author Name Unknown Organization [employer] Address [place], [place] [address] Care Team Providers Care Software Engineer Sales Name Role Phone Jyoti Cope DO Primary Care Provider [phone] Allergies Active Allergy Reactions Criticality Noted Date Comments Sulfa (Sulfonamide Antibiotics) *Unknown Unknown 06/27 Medications Medication Sig Dispensed Refills Start Date End Date Status Qyaxgrjf-Rj-Sto-F e-FA tab tablet Take 1 Tablet by mouth once daily. 0 09/04/2022 Active pantoprazole (PROTONIX) 20 mg tablet Take 20 mg by mouth once daily. 07/31/2023 Active ascorbic acid, vitamin C, (Vitamin C) 500 mg tablet Take 1 Tablet (500 mg) by mouth once daily. 08/27/2023 Active zinc gluconate 50 mg tablet Take 1 Tablet (50 mg) by mouth once daily. 08/27/2023 Active LORazepam (ATIVAN) 0.5 mg tabIndications:Gr ief associated with loss of fetus,Anxiety Take 1 Tablet (0.5 mg) by mouth at bedtime if needed for Anxiety or Sleep. 30 Tablet 10/06/2023 Active LORazepam (ATIVAN) 0.5 mg tabIndications:Gr ief associated with loss of fetus,Anxiety Take 1 Tablet (0.5 mg) by mouth at bedtime if needed for Anxiety or Sleep. 30 Tablet 08/27/2023 10/06/2023 Discontinued (Reorder (E-cancel not sent)) Active Problems Problem Noted Date Diagnosed Date PCOS (polycystic ovarian syndrome) 12/25/2019 Encounters Date Type Department Care Team Description 09/16/2023 11:00 AM CDT Preop Visit [facility] [address] [facility] [place] [address] Jyoti Cope, DO Preoperative Exam (10/09/23 - Hysteroscopy - Dr. Ramirez - [facility] - ); Derm Problem (Moles on arms) 09/16/2023 Travel 09/10/2023 Telephone [facility] [address] [facility] [place] [address] Jyoti Cope, DO Prior Authorization ([facility]A - CT ABDOMEN PELVIS W - P2P Requested) 09/04/2023 12:56 PM CDT - 09/04/2023 11:59 PM CDT Hospital Encounter [address] [address] Jyoti Cope, DO Pelvic pain; History of demise, not currently ; Endometritis following delivery 09/04/2023 Travel 09/02/2023 11:30 AM CDT Ancillary Procedure [facility] [address] [facility] [place] [address] 09/02/2023 10:35 AM CDT Office Visit [facility] [address] [facility] [place] [address] Jyoti Cope, DO Vaginal Bleeding (Bloody discharge on/off over the last 24 hours, uterine cramping/pain); Lab (Repeat labs? 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 Scanner 1 scan: (1-Ord) [place], PELVIC TA and TV, 08/25/2023 07/29/2023 Lab Requisition [facility] [phone] Keely Jones MD 07/21/2023 Lab Requisition [facility] [phone] Unknown, Doctor 07/16/2023 Lab Requisition [facility] [phone] Bonny Makr MD 07/16/2023 Lab Requisition [facility] [phone] Bonny Mark MD 07/16/2023 Lab Requisition [facility] [phone] Deedee, Bonny Olvera MD from Last 3 Months Immunizations Name Administration Dates Next Due DTP [...] Not Answered Alcohol Use Standard Drinks/Week Comments Not Currently 0 (1 standard drink = 0.6 oz pur e alcohol) occ PHQ-2 Answer Date Recorded PHQ-2 TOTAL SCORE 0 08/27/2023 Social Connections Answer Date Recorded Frequency of Communication with Friends and Fami ly 0 08/27/2023 Financial Resource Strain Answer Date R ecorded Difficulty of Paying Living Expenses 3 08/27/2023 Difficulty of Paying Living Expenses Not on file 08/27/2023 Food Insecurity Answer Date Recorded Worried About Running Out of Food in the Last Ye ar 1 08/27/2023 Transportation Needs Answer Date Record ed Lack of Transportation (Medical) 1 08/27/2023 Housing Stability Answer Date Recorded Unable to Pay for Housing in the Last Year 1 08/27/2023 Sex and Gender Information Value Date Recorded [...] Sign Reading Time Taken Comments Blood Pressure 127/87 09/16/2023 10:54 AM CDT Pulse 99 09/16/2023 10:54 AM CDT Temperature 36.9 ??C (98.4 ??F) 12/16/2022 8:29 AM CD T Respiratory Rate 20 12/01/2018 12:03 PM CDT Oxygen Saturation 100% 09/16/2023 10:54 AM CDT Inhaled Oxygen Concentration - - Weight 84.9 kg (187 lb 1.6 oz) 09/16/2023 10:54 AM CDT Height 170 cm (5' 6.93) 09/16/2023 10:54 AM CDT Body Mass Index 29.37 09/16/2023 10:54 AM CDT Plan of Treatment Health Maintenance Due Date Last Done Comments HIV for age 15-65 11/15/2006 Hepatitis C screening for age 18-79 11/15/2009 Pap test for age 21-65 03/12/2022 03/12/2019 COVID-19 vaccine series ( season) 2023 Influenza for age 9-49 01/25/2024 Depression screening for age 12+ 08/26/2024 08/27/2023, 04/03/2022, 11/17/2019, Additional history exists BMI (ht and wt on same day) for age 18+ 09/15/2024 09/16/2023, 12/15/2019, 03/12/2019, Additional history exists Tetanus booster 07/02/2031 07/02/2021, 10/26, 11/01/1996, Additional history exists Tdap Completed 07/02/2021, 10/26, 11/01/1996, Additional history exists Pneumococcal series for age 6-64 Aged Out No longer eligible based on patient's age to complete this topic Procedures Procedure Name Priority Date/Time Associated Diagnosis Comments CREATININE Routine 09/16/2023 11:20 AM CDT Pre-op exam MR PELVIS OVARY OR UTERUS WWO STAT 09/04/2023 2:36 PM CDT Pelvic pain History of demise, not currently Endometritis following delivery CT ABDOMEN PELVIS W STAT 09/02/2023 1 1:59 AM CDT Pelvic pain History of D&C CBC WITH AUTO DIFFERENTIAL Routine 09/02/2023 11:15 AM CDT Pelvic pain C-REACTIVE PROTEIN Routine 09/02/2023 11 :15 AM CDT Pelvic pain CBC WITH AUTO DIFFERENTIAL Routine 09/02/2023 11:15 AM CDT Pelvic pain UA W/ SEDIMENT EXAM REFLEXED PER CRITERIA Routine 09/02/2023 11:03 AM CDT Pelvic pain SCAN-ULTRASOUND REPORT 08/25/2023 12:00 AM CDT LAB TRACKING EVENT Routine 07/28/2023 6: 47 PM XEROX MACHINE OPERATOR PATH TISSUE EXAM Routine 07/28/2023 6:47 PM XEROX MACHINE OPERATOR LAB TRACKING EVENT Routine 07/16/2023 11 :52 AM XEROX MACHINE OPERATOR PF6 Routine 07/16/2023 11:52 AM XEROX MACHINE OPERATOR PF5 Routine 07/16/2023 11:52 AM XEROX MACHINE OPERATOR PF2 Routine 07/16/2023 11:52 AM XEROX MACHINE OPERATOR PF1 Routine 07/16/2023 11:52 AM XEROX MACHINE OPERATOR PC WETLAB Routine 07/16/2023 11:52 AM XEROX MACHINE OPERATOR CYTOGENETIC PRODUCTS OF CONCEPTION STUDIES Routine 07/16/2023 11:52 AM XEROX MACHINE OPERATOR PC WETLAB Routine 07/16/2023 11:52 AM XEROX MACHINE OPERATOR LAB TRACKING EVENT Routine 07/15/2023 5: 37 PM XEROX MACHINE OPERATOR KLEIHAUER ( CELL) Routine 07/15/2023 5:37 PM XEROX MACHINE OPERATOR CHROMOSOMAL MICROARRAY, AUTOPSY, PRODUCTS OF CONCEPTION, OR STILLBIRTH Routine 07/15/2023 5:37 PM XEROX MACHINE OPERATOR PARENTAL SAMPLE PREP FOR MICROARRAY Routine 07/15/2023 5:37 PM XEROX MACHINE OPERATOR CYTOGENETIC CONGENITAL BLOOD STUDIES Routine 07/15/2023 5:37 PM XEROX MACHINE OPERATOR REFERRAL ID/SUSC,NONURINE Routine 07/15/2023 3:05 PM XEROX MACHINE OPERATOR AIR BRAKE WORKER THIN PREP PAP SCREEN IMAGED Routine 03/12/2019 3:17 PM CDT Routine general medical examination at health care facility Screening for malignant neoplasm of cervix from Last 3 Months or Most Recently Relevant to Health Maintenance Results * CREATININE (09/16/2023 11:20 AM CDT) eGFR >90 >90 mL/min/1.7 3m2 09/16/2023 9:40 PM CDT [facility] Comment:As of 2021, eG FR is calculated by the CKD-EPI creatinine equation without race adjustment. ??eGFR can be influenced by muscle mass, exercise, and diet. ??The reported eGFR is an estimation only and is only applicable if the renal function is stable. CREATININE 0.70 0.50 - 0.90 mg/dL 09/16/2023 9:40 PM CDT [facility] Blood BLOOD SPECIMEN / Unknown Venipuncture / Unknown 09/16/2023 11:20 AM CDT 09/16/2023 11:22 AM CDT Jyoti Cope DO CHEMISTRY [facility] [address] [place] [address], [place] * MR PELVIS OVARY OR UTERUS WWO (09/04/2023 2:36 PM CDT) Anatomical Region Laterality Modality Pelvis, UTERUS Magnetic Resonan ce 09/04/2023 2:36 PM CDT Impressions 09/04/2023 3:11 PM CDT Normal pelvic MRI. No evidence of retained products of conception, arteriovenous malformation, or other explanation for symptoms. Narrative 09/04/2023 3:11 PM CDT For Patients: As a result of the Cures Act, medical imaging exams and procedure reports are released immediately into your electronic medical record. You may view this report before your referring provider. If you have questions, please contact your health care provider. EXAM: MR PELVIS OVARY OR UTERUS WWO LOCATION: [facility] DATE: 09/04/2023 INDICATION: Pelvic Pain History Of Demise, Not Currently Endometritis Following Delivery COMPARISON: CT 09/02/2023, ultrasound 08/25/2023 TECHNIQUE: Routine MRI female pelvis protocol including T1 in/out phase, diffusion, thin section high resolution multiplane T2, and post contrast T1. Dynamic contrast-enhanced MRA abdominal aorta and branch vessels also performed. 2D and 3D reconstructions were performed by MR technologist. CONTRAST: GADOBUTROL 1 MMOL/ML IV 10 ML VIAL: 8.5mL FINDINGS: UTERUS: Normal. No hyperenhancement, enlarged feeding uterine vessels, or dilated flow voids. ENDOMETRIUM: 5 mm in thickness. The junctional zone is within normal limits. ADNEXA: Normal. ADDITIONAL FINDINGS: No significant incidental findings. No adenopathy. Procedure Note Rodrigo Mantilla MD - 09/04/2023 For Patients: As a result of the Cures Act, medical imagingexams and procedure reports are released immediately into your electronicmedical record. You may view this report before your referring provider.If you have questions, please contact your health care provider. EXAM: MR PELVIS OVARY OR UTERUS WWO LOCATION: [facility] DATE: 09/04/2023 INDICATION: Pelvic Pain History Of Demise, Not Currently Endometritis Following Delivery COMPARISON: CT 09/02/2023, ultrasound 08/25/2023 TECHNIQUE: Routine MRI female pelvis protocol including T1 in/out phase,diffusion, thin section high resolution multiplane T2, and post contrastT1. Dynamic contrast-enhanced MRA abdominal aorta and branch vessels alsoperformed. 2D and 3D reconstructions were performed by MR technologist. CONTRAST: GADOBUTROL 1 MMOL/ML IV 10 ML VIAL: 8.5mL FINDINGS: UTERUS: Normal. No hyperenhancement, enlarged feeding uterine vessels, ordilated flow voids. ENDOMETRIUM: 5 mm in thickness. The junctional zone is within normallimits. ADNEXA: Normal. ADDITIONAL FINDINGS: No significant incidental findings. No adenopathy. IMPRESSION: Normal pelvic MRI. No evidence of retained products of conception,arteriovenous malformation, or other explanation for symptoms. Jyoti Cope DO MR * CT ABDOMEN PELVIS W (09/02/2023 11:59 AM CDT) Anatomical Region Laterality Modality Abdomen, Pelvis, AORTA, LIVER, SPLEEN Computed Tomography 09/02/2023 12:2 3 PM CDT Impressions 09/02/2023 12:[address] of the abdomen and pelvis. Pelvic ultrasound is much more sensitive for retained products of conception. Please note that all CT scans at this facility use dose modulation, iterative reconstruction, and/or weight-based dosing when appropriate to reduce radiation dose to as low as reasonably achievable. Dictated by Kanchan Briones MD @ 09/02/2023 12:23:39 PM (Electronically Signed) Narrative 09/02/2023 12:23 PM CDT For Patients: ??As a result of the Cures Act, medical imaging exams and procedure reports are released immediately into your electronic medical record. ??You may view this report before your referring provider. ??If you have questions, please contact your health care provider. INDICATION: Ongoing pelvic pain and bloody vaginal discharge after a stillbirth 7 weeks ago, history of dilatation and curettage for retained placenta COMPARISON: 09/04/2022 TECHNIQUE: CT of the abdomen and pelvis with intravenous contrast. Multiplanar reformats are included. Contrast: 100 mL Omnipaque 350 FINDINGS: Lung bases: Normal. Liver: Normal. No mass. Gallbladder and bile ducts: Cholecystectomy. No bile duct dilation. Pancreas: Normal. Spleen: Normal. Adrenal glands: Normal. Kidneys: Normal parenchyma. No cyst or solid mass. No calculi. No urinary tract dilation. Urinary bladder: Normal. Vessels: Normal. Pelvis: No cyst or mass. Physiologic CT appearance of the vaginal canal, cervix, uterus, and both ovaries. Both ovarian veins are normally opacified with contrast. Bowel: No dilated or inflamed bowel. Lymph nodes: No adenopathy. Peritoneum: No ascites. Bones: No fractures. No focal worrisome bone lesions. Abdominal wall: Unchanged small fat containing supraumbilical hernia. Mild diastasis of the abdominal wall at the umbilicus. Procedure Note Kanchan Briones MD - 09/02/2023 For Patients: As a result of the Century Cures Act, medical imagingexams and procedure reports are released immediately into your electronicmedical record. You may view this report before your referring provider.If you have questions, please contact your health care provider. INDICATION: Ongoing pelvic pain and bloody vaginal discharge after a stillbirth 7weeks ago, history of dilatation and curettage for retained placenta COMPARISON: 09/04/2022 TECHNIQUE: CT of the abdomen and pelvis with intravenous contrast. Multiplanarreformats are included. Contrast: 100 mL Omnipaque 350 FINDINGS: Lung bases: Normal. Liver: Normal. No mass. Gallbladder and bile ducts: Cholecystectomy. No bile duct dilation. Pancreas: Normal. Spleen: Normal. Adrenal glands: Normal. Kidneys: Normal parenchyma. No cyst or solid mass. No calculi. No urinarytract dilation. Urinary bladder: Normal. Vessels: Normal. Pelvis: No cyst or mass. Physiologic CT appearance of the vaginal canal,cervix, uterus, and both ovaries. Both ovarian veins are normallyopacified with contrast. Bowel: No dilated or inflamed bowel. Lymph nodes: No adenopathy. Peritoneum: No ascites. Bones: No fractures. No focal worrisome bone lesions. Abdominal wall: Unchanged small fat containing supraumbilical hernia. Milddiastasis of the abdominal wall at the umbilicus. IMPRESSION: Normal CT of the abdomen and pelvis. Pelvic ultrasound is much moresensitive for retained products of conception. Please note that all CT scans at this facility use dose modulation,iterative reconstruction, and/or weight-based dosing when appropriate toreduce radiation dose to as low as reasonably achievable. Dictated by Kanchan Briones MD @ 09/02/2023 12:23:39 PM (Electronically Signed) Jyoti Renetta Maninderra DO CT * CBC WITH AUTO DIFFERENTIAL (09/02/2023 11:15 AM CDT) WHITE BLOOD COUNT 7.7 4.5 - 11.0 thou/cu mm 09/02/2023 11:22 AM CDT [facility] RED BLOOD COUNT 5.13 4.00 - 5.20 mil/cu mm 09/02/2023 11:22 AM CDT [facility] HEMOGLOBIN 14.7 12.0 - 16.0 g/dL 09/02/2023 11:22 AM CDT [facility] HEMATOCRIT 43.0 33.0 - 51.0 % 09/02/2023 11:22 AM CDT [facility] MCV 84 80 - 100 fL 09/02/2023 11:22 AM CDT [facility] MCH 28.7 26.0 - 34.0 pg 09/02/2023 11:22 AM CDT [facility] MCHC 34.2 32.0 - 36.0 g/dL 09/02/2023 11:22 AM CDT [facility] RDW 12.8 11.5 - 15.5 % 09/02/2023 11:22 AM CDT [facility] PLATELET COUNT 251 140 - 440 thou/cu mm 09/02/2023 11:22 AM CDT [facility] MPV 10.2 6.5 - 11.0 fL 09/02/2023 11:22 AM CDT [facility] % NEUT 59.6 % 09/02/2023 11:22 AM CDT [facility] % LYMPH 31.6 % 09/02/2023 11:22 AM CDT [facility] % MONO 5.6 % 09/02/2023 11:22 AM CDT [facility] % EOS 2.9 % 09/02/2023 11:22 AM CDT [facility] % BASO 0.3 % 09/02/2023 11:22 AM CDT [facility] ABSOLUTE NEUTROPHILS 4.6 1.7 - 7.0 thou/cu mm 09/02/2023 11:22 AM CDT [facility] ABSOLUTE LYMPHOCYTES 2.4 0.9 - 2.9 thou/cu mm 09/02/2023 11:22 AM CDT [facility] ABSOLUTE MONOCYTES 0.4 <0.9 thou/cu mm 09/02/2023 11:22 AM CDT [facility] ABSOLUTE EOSINOPHILS 0.2 <0.5 thou/cu mm 09/02/2023 11:22 AM CDT [facility] ABSOLUTE BASOPHILS 0.0 <0.3 thou/cu mm 09/02/2023 11:22 AM CDT [facility] Blood BLOOD SPECIMEN / Unknown Venipuncture / Unknown 09/02/2023 11:15 AM CDT 09/02/2023 11:16 AM CDT Jyoti Cope DO HEMATOLOGY [address] [address], * C-REACTIVE PROTEIN (09/02/2023 11:15 AM CDT) C-REACTIVE PROTEIN <0.3 <0.5 mg/dL 09/02/2023 9:50 PM CDT [facility] Blood BLOOD SPECIMEN / Unknown Venipuncture / Unknown 09/02/2023 11:15 AM CDT 09/02/2023 11:16 AM CDT Jyoti Cope DO CHEMISTRY [facility] [address] [place] [address], [place] * UA W/ SEDIMENT EXAM REFLEXED PER CRITERIA (09/02/2023 11:03 AM CDT) COLOR Yellow Yellow Color 09/02/2023 11:11 AM CDT [facility] CLARITY Clear Clear Clarity 09/02/2023 11:11 AM CDT [facility] SPECIFIC GRAVITY,URINE 1.010 1.010, 1.015, 1.020, 1.025 09/02/2023 11:11 AM CDT [facility] PH,URINE 6.0 6.0, 7.0, 8.0, 5.5, 6.5, 7.5, 8.5 09/02/2023 11:11 AM CDT [facility] UROBILINOGEN, QUALITATIVE Normal Normal EU/dl 09/02/2023 11:11 AM CDT [facility] PROTEIN, URINE Negative Negative mg/dL 09/02/2023 11:11 AM CDT [facility] GLUCOSE, URINE Negative Negative mg/dL 09/02/2023 11:11 AM CDT [facility] KETONES,URINE Negative Negative mg/dL 09/02/2023 11:11 AM CDT [facility] BILIRUBIN,URI NE Negative Negative 09/02/2023 11:11 AM CDT [facility] OCCULT BLOOD,URINE Negative Negative 09/02/2023 11:11 AM CDT [facility] NITRITE Negative Negative 09/02/2023 11:11 AM CDT [facility] LEUKOCYTE ESTERASE Negative Negative 09/02/2023 11:11 AM CDT [facility] Urine URINE SPECIMEN / Unknown Non-Blood / Unknown 09/02/2023 11:03 AM CDT 09/02/2023 11:08 AM CDT Jyoti Mcgarrydenise QUIROZ URINE [facility] [address] [place] [address], [place] [phone] * SCAN-ULTRASOUND REPORT (08/25/2023 12:00 AM CDT) Anatomical Region Laterality Modality Other Scanner OTHER * LAB TRACKING EVENT (07/28/2023 6:47 PM XEROX MACHINE OPERATOR) Only the most recent of3 resultswithin the time period is included. Other (Other) Client Collect / Unknown 07/28/2023 6:47 PM XEROX MACHINE OPERATOR 07/29/2023 1:50 PM XEROX MACHINE OPERATOR Keely Jones MD LAB BILL ONLY [facility] [address] [place] [address], * PATH TISSUE EXAM (07/28/2023 6:47 PM XEROX MACHINE OPERATOR) Case Report Pathology Report ?Case: [id number] ? Authorizing Provider: ??Keely Jones MD ?Collected: ? 07/28/2023 1847 ? Ordering Location: ? [facility] ?Received: ?07/29/2023 1411 ? Pathologist: ? Abelardo Shin MD ? Specimen: ?Retained Placenta ? 07/30/2023 2:11 PM [facility] Final Diagnosis A) UTERINE CONTENTS, CURETTAGE: 1. [place], implantation site, and rare chorionic villi consistent with ?clinical impression of retained intrauterine products of conception 2. Negative for abnormal trophoblastic proliferation and malignancy 07/30/2023 2:11 PM [facility] Clinical Information Uterus infection 07/30/2023 2:11 PM [facility] Gross Description A) Received in formalin, labeled with the patient's name and retained placenta, is a 3 x 2.5 x 1 cm aggregate of multiple maroon-brown soft ragged tissues admixed with scant blood and mucus. The specimen is wrapped and entirely submitted in 3 cassettes. The specimen was placed in formalin at 1905 on 07/28/2023. LDW 07/29/2023 ?? 07/30/2023 2:11 PM [facility] Microscopic Description The final diagnosis is based on microscopic examination of appropriate sections of all specimens. 07/30/2023 2:11 PM [facility] Additional Information Interpreted at [facility] - [address], [place] [address] 07/30/2023 2:11 PM XEROX MACHINE OPERATOR [facility] Other (Retained Placenta) 07/28/2023 6:47 PM XEROX MACHINE OPERATOR 07/29/2023 2:11 PM XEROX MACHINE OPERATOR Keely Delmi Jones MD PATHOLOGY/CYTOLOGY [facility] [address] [place] [address], * PC W[facility]LAB (07/16/2023 11:52 AM XEROX MACHINE OPERATOR) Only the most recent of2 resultswithin the time period is included. Other (Products of Conception) Client Collect / Unknown 07/16/2023 11:52 AM XEROX MACHINE OPERATOR 07/21/2023 11:35 AM XEROX MACHINE OPERATOR Bonny Mark MD LABORATORY Performing Organization Address City/[facility] Co de Phone Number [facility] [address] [place] [phone], [place] * PF6 (07/16/2023 11:52 AM XEROX MACHINE OPERATOR) Other (Products of Conception) Client Collect / Unknown 07/16/2023 11:52 AM XEROX MACHINE OPERATOR 07/21/2023 11:35 AM XEROX MACHINE OPERATOR Bonny Mark MD LABORATORY Performing Organization Address [facility] Co de Phone Number [facility] [address] [place] [id number], [place] * PF5 (07/16/2023 11:52 AM XEROX MACHINE OPERATOR) Other (Products of Conception) Client Collect / Unknown 07/16/2023 11:52 AM XEROX MACHINE OPERATOR 07/21/2023 11:35 AM XEROX MACHINE OPERATOR Bonny Mark MD LABORATORY Performing Organization Address [facility] Co de Phone Number [facility] [address] [place] [id number], [place] * PF2 (07/16/2023 11:52 AM XEROX MACHINE OPERATOR) Other (Products of Conception) Client Collect / Unknown 07/16/2023 11:52 AM XEROX MACHINE OPERATOR 07/21/2023 11:35 AM XEROX MACHINE OPERATOR Bonny Mark MD LABORATORY Performing Organization Address City/[facility] Co de Phone Number [facility] [address] [place] [phone], [place] * PF1 (07/16/2023 11:52 AM XEROX MACHINE OPERATOR) Other (Products of Conception) Client Collect / Unknown 07/16/2023 11:52 AM XEROX MACHINE OPERATOR 07/21/2023 11:35 AM XEROX MACHINE OPERATOR Bonny Mark MD LABORATORY Performing Organization Address City/[facility] Co de Phone Number [facility] [address] [place] [address], * CYTOGENETIC PRODUCTS OF CONCEPTION STUDIES (07/16/2023 11:52 AM XEROX MACHINE OPERATOR) AMENDMENT This report has been edited to document cell culture cryopreservation. 07/30/2023 9:50 PM XEROX MACHINE OPERATOR [facility] RFR Demise 07/30/2023 9:50 PM XEROX MACHINE OPERATOR [facility] TEST & RESULT SUMMARY Cell Culture Cryopreservation: ?? Completed. See 07/30/2023 comments. Send Out Chromosomal Microarray ([employer]) Testing: ?? Sent. See 07/21/2023 comments. Cell Culture: ?? Completed. See 07/21/2023 comments. 07/30/2023 9:50 PM XEROX MACHINE OPERATOR [facility] _ 07/30/2023 9:50 PM XEROX MACHINE OPERATOR [facility] COMMENTS 07/30/2023 Cultures have been cryopreserved. Cryopreserved cells will be stored for 6 months, then discarded. 07/21/2023 15mg of chorionic villi, one piece of [id number] umbilical cord, and one piece of [id number] skin were sent on 07/21/2023 to [facility] for [employer] testing. Final results of this test will be reported separately. Cell culture(s) will be maintained until all testing is completed. A cell culture directive was sent to Bonny Mark MD on 07/21/2023 and is awaiting a response. 07/30/2023 9:50 PM XEROX MACHINE OPERATOR [facility] SOURCE Placenta 25mg of chorionic villi processed Skin - [id number] Umbiical cord - [id number] horionic villi, 10mg for culture Skin, [id number] for culture. 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 [place] [address], * CHROMOSOMAL MICROARRAY, AUTOPSY, PRODUCTS OF CONCEPTION, OR STILLBIRTH (07/15/2023 5:37 PM XEROX MACHINE OPERATOR) RESULT SUMMARY Normal 07/29/2023 2:51 PM [facility] NOMENCLATURE arr(1-22)x2 ,(XY)x1 07/29/2023 2:51 PM [facility] INTERPRETATION SEE COMMENTS 07/29/2023 2:51 PM [facility] Comment: The result is normal. No clinically relevant copy number changes or regions with absence of heterozygosity were observed. Maternal cell contamination studies were also performed, and no evidence of maternal DNA was detected in this products of conception specimen. If additional cell cultures have not already been ordered, cultures from this specimen will be discarded 10 days after all cytogenetic test results have been reported. If further testing is desired, contact [facility] at [phone]. This assay does not rule out balanced chromosome abnormalities, imbalances of chromosomal regions not represented by probes on the array, or mosaicism. A normal result does not exclude the diagnosis of any of the disorders tested for on this array and does not guarantee a healthy or outcome. This test was developed and its performance characteristics determined by [facility] in a manner consistent with CLIA requirements. This test has not been cleared or approved by the U.S. Food and Drug Administration. REASON FOR REFERRAL Demise 07/29/2023 2:51 PM [facility] SPECIMEN SEE COMMENTS 07/29/2023 2:51 PM [facility] Comment:RESULT: Products of Conception SOURCE Tissue 07/29/2023 2:51 PM [facility] METHOD SEE COMMENTS 07/29/2023 2:51 PM [facility] Comment: Chromosomal microarray (GARDEN TRACTOR MECHANIC) analysis was performed using both copy number and single-nucleotide polymorphism (SNP) probes on a whole-genome array ([employer] Ardiancan HD platform; 1.9 million copy number probes and 750,000 SNPs) using in silico controls. The genome-wide functional resolution of this array is approximately 30 kilobases for deletions and 60 kilobases for duplications. All data was analyzed and reported using the June 2008 NCBI human genome build 37.1 (hg19). Deletions larger than 1.0 megabase, duplications larger than 2.0 megabases, regions with isolated absence of heterozygosity (AOH) greater than 5 megabases (terminal) and 10 megabases (interstitial) on UPD- associated chromosomes, and genome-wide AOH involving greater than 5% of the autosomal DNA complement are generally reported. However, smaller changes with pathogenic potential will also be reported, while larger changes that are well-documented benign variants will not be reported. Copy number changes resulting in carrier status for autosomal recessive disorders may not be reported unless a concern for a specific disorder is communicated to the laboratory. [facility] mandates follow-up for all diagnostic results. Contact the laboratory at [phone] with any questions. ADDITIONAL INFORMATION SEE COMMENTS 07/29/2023 2:51 PM [facility] Comment: A portion of the testing process was performed at [facility] sites [id number], [id number]. RELEASED BY SEE COMMENTS 07/29/2023 2:51 PM [facility] Comment: RESULT: Radha Angulo, Ph.D. Test Performed by: [facility] - [facility] [address] [place] [address] Assistant Controller: Cleveland Vu M.D. Ph.D.; IA# [id number] Other (Products of Conception) Client Collect / Unknown 07/15/2023 5:37 PM XEROX MACHINE OPERATOR 07/21/2023 11:58 AM XEROX MACHINE OPERATOR Bonny Mark MD SEND OUTS [facility] [address] [place] [address], * PARENTAL SAMPLE PREP FOR MICROARRAY (07/15/2023 5:37 PM XEROX MACHINE OPERATOR) RESULT SUMMARY Performed 07/29/2023 8:41 AM [facility] INTERPRETATION PPAP SEE COMMENTS 07/29/2023 8:41 AM [facility] Comment: Cell cultures were harvested and DNA was extracted from peripheral blood samples and will be used for additional testing as necessary. REASON FOR REFERRAL SEE COMMENTS 07/29/2023 8:41 AM XEROX MACHINE OPERATOR [facility] Comment:RESULT: Cell culture and DNA extraction needed SPECIMEN Blood 07/29/2023 8:41 AM XEROX MACHINE OPERATOR [facility] METHOD SEE COMMENTS 07/29/2023 8:41 AM XEROX MACHINE OPERATOR [facility] Comment: RESULT: Cell culture preparation and DNA extraction Test Performed by: [facility] - [facility] [address] [place] [address] Assistant Controller: Cleveland Vu M.D. Ph.D.; CLIA# [id number] Blood (Peripheral Blood) Client Collect / Unknown 07/15/2023 5:37 PM XEROX MACHINE OPERATOR 07/17/2023 12:15 PM XEROX MACHINE OPERATOR Bonny Mark MD SEND OUTS [address] [address], * CYTOGENETIC CONGENITAL BLOOD STUDIES (07/15/2023 5:37 PM XEROX MACHINE OPERATOR) [facility] 07/30/2023 9:08 PM [facility] TEST & RESULT SUMMARY Send Out Chromosomal Microarray (GARDEN TRACTOR MECHANIC) Parental Control Testing: Sent. See comments. 07/30/2023 9:08 PM [facility] _ 07/30/2023 9:08 PM XEROX MACHINE OPERATOR [facility] COMMENTS A 3.5 ml EDTA and an 8.5 ml NaHep peripheral blood specimen were sent on 07/21/2023 to [facility] as a parental control for a specimen sent for GARDEN TRACTOR MECHANIC testing. Results will be issued in a separate report. 07/30/2023 9:08 PM XEROX MACHINE OPERATOR [employer]- NTRAL LABORATORY SOURCE Peripheral Blood (10ml NaHep tube) - received 8.5ml Peripheral Blood (5ml EDTA tube) - received 3.5ml 07/30/2023 9:08 PM XEROX MACHINE OPERATOR [facility] Blood (Peripheral Blood) Client Collect / Unknown 07/15/2023 5:37 PM XEROX MACHINE OPERATOR 07/16/2023 1:31 PM XEROX MACHINE OPERATOR Bonny Mark MD LABORATORY [facility] LABORATORY-CENTRAL LABORATORY [address] [place] [address], * NINOAUER ( CELL) (07/15/2023 5:37 PM XEROX MACHINE OPERATOR) Case Report Special Hematology Report ? Case: [id number] ? Authorizing Provider: ??Bonny Mark MD ?? Collected: ? 07/15/2023 1737 ? Ordering Location: ? [facility] ?Received: ?07/16/2023 1449 ? Pathologist: ? Thalia Murcia MD ? Specimen: ?Peripheral Blood ? 07/18/2023 8:55 AM [facility] LABORATORY-C ENTRAL LABORATORY Final Diagnosis [place] STUDY (FLOW CYTOMETRY) RESULTS: 1. Negative for recent -maternal hemorrhage 2. RhoGam is not indicated (maternal Rh type positive) 3. See comment 07/18/2023 8:55 AM [facility] LABORATORY-C ENTRAL LABORATORY Preliminary result electronically signed by Alaina Nice for Thalia Murcia MD on 07/17/2023 at 1:58 PM Comment The negative results listed would suggest that a recent -maternal hemorrhage has not occurred. Delays in sampling could lead to false negative results, especially in cases of significant ABO incompatibility between mother and fetus. Clinical correlation should be considered in final conclusions. 07/18/2023 8:55 AM [facility] Clinical Information Indication: IUFD Maternal ABO type: AB Maternal Rh type: Positive Gestational age: 23 weeks 1 day 07/18/2023 8:55 AM [facility] Flow Cytometry Summary RESULTS The number of events detected by flow cytometry is below the assay sensitivity threshold and therefore the result is negative. These marker percentages and the flow cytograms have been verified by the signing attending pathologist. QC: FETALtrol control (levels 1, 2, and 3) results are within normal range. METHODS RBCs are detected by incubating maternal blood with fluoresceinated monoclonal antibody with specificity for hemoglobin F. Positive (immunofluorescent ) cells are detected by interrogating at least 50,000 RBCs using multiparameter flow cytometry. The lower limit of detection for the flow cytometry based red cell assay is less than or equal to 0.03% as determined in the [facility] flow cytometry laboratory. [Required disclaimer: This test was developed and its performance characteristics determined by the [facility] Flow Cytometry Laboratory. It has not been cleared or approved by the US Food and Drug Administration. The FDA has determined that such clearance or approval is not necessary. This test is used for clinical purposes. It should not be regarded as investigational or for research. This laboratory is certified under the Clinical Laboratory Improvement Amendments of 1988 (CLIA-88) as qualified to perform high complexity clinical laboratory testing.] [facility]. 07/18/2023 8:55 AM XEROX MACHINE OPERATOR [facility] Blood (Peripheral Blood) 07/15/2023 5:37 PM XEROX MACHINE OPERATOR 07/16/2023 2:49 PM XEROX MACHINE OPERATOR Bonny Mark MD HEMATOLOGY Performing Organization Address City/State/[facility] de Phone Number [facility] [address] [place] [id number], * (ABNORMAL) REFERRAL ID/SUSC,NONURINE (07/15/2023 3:05 PM XEROX MACHINE OPERATOR) CULTURE RESULT(A) 07/23/2023 10:27 AM XEROX MACHINE OPERATOR [facility] N[facility]AL LABORATORY CULTURE Streptococcus bovis group 07/23/2023 10:27 AM XEROX MACHINE OPERATOR [facility] LAB[facility]AT[facility] Other ( Placenta) Client Collect / Unknown 07/15/2023 3:05 PM XEROX MACHINE OPERATOR 07/21/2023 2:47 PM XEROX MACHINE OPERATOR Narrative Organism Antibiotic Method Susceptibility Streptococcus bovis group PENICILLIN 0.12: S Streptococcus bovis group CEFTRIAXONE <=0.12: S Streptococcus bovis group ERYTHROMYCIN <=0.12: S Streptococcus bovis group CLINDAMYCIN <=0.25: S Streptococcus bovis group VANCOMYCIN 0.5: S Streptococcus bovis group AMPICILLIN <=0.25: S Streptococcus bovis group CLARITHROMYCIN S Doctor Unknown MICROBIOLOGY Performing Organization Address [facility] Co de Phone Number [facility] [address] [place] [address], * AIR BRAKE WORKER THIN PREP PAP SCREEN IMAGED (03/12/2019 3:17 PM CDT) Case Report Gynecologic Cytology Report ? Case: [id number] ? Authorizing Provider: ??Roslyn Bentley MD ? Collected: ? 03/12/2019 1517 ? Ordering Location: ? [facility] ?Received: ?03/12/2019 1518 ? Clinic ? First Screen: ?Orin Mancuso ? Specimen: ?AIR BRAKE WORKER ThinPrep Vial Screening, Cervical ? 03/23/2019 10:42 AM CDT [facility] LABORATORY-C ENTRAL LABORATORY INTERPRETATION/ RESULT NEGATIVE FOR INTRAEPITHELIAL LESION OR MALIGNANCY (NIL) (none) 03/23/2019 10:42 AM CDT [facility]ORAT[facility]-C ENTRAL LABORATORY IMEN ADEQUACY Satisfactory for evaluation Endocervical component present 03/23/2019 10:42 AM CDT [facility]AT[facility]-C ENTRAL LABORATORY HPV REQUEST HPV if ASCUS 03/23/2019 10:42 AM CDT [facility]C EN[facility]AL LABORATORY Date of LMP 02/19/2019 03/23/2019 10:42 AM CDT [facility]C EN[facility]AL LABORATORY Last Pap Date at least 5 years ago 03/23/2019 10:42 AM CDT [facility] EN[facility]AL LABORATORY Last Pap Result First Pap/Unknown 10:42 AM CDT [facility] EN[facility]AL LABORATORY Abnormal Pap or Jasper Bx in last 5 years No 03/23/2019 10:42 AM CDT [facility]AL LABORATORY Menstrual Status Regular Periods 03/23/2019 10:42 AM CDT [facility]C ENTRAL LABORATORY Jasper Bx Done Today No 03/23/2019 10:42 AM CDT [facility] Additional Information None given 03/23/2019 10:42 AM CDT [facility] ENTRCO LABORATORY Automated Review Successful 03/23/2019 10:42 AM CDT [facility] EN[facility]CO LABORATORY Comment:Specimen processed s uccessfully by automated acupressurist device, ThinPrep Imaging System, [employer] Note The pap test is a screening technique, not a diagnostic procedure. ??It is used primarily to screen for squamous cancers and precursor lesions. ??Published studies have shown that it is subject to both false negative and false positive results. ??The pap test should not be used as the sole means to diagnose or exclude pre-malignant and malignant lesions. Cytology is screened and interpreted at [facility] - [address], [place] [address] and [facility] - [address]; [place] [address] and [facility] - [address]; [place] [address] and [facility] [address]; [place] [address] 03/23/2019 10:42 AM T [facility] Other (Cervical) Non-Blood / Unknown 03/12/2019 3:17 PM CDT 03/12/2019 3:18 PM CDT Roslyn Bentley MD PATHOLOGY/CYTOLOGY [facility] [address] [place] [address], from Last 3 Months or Most Recently Relevant to Health Maintenance Care Teams Software Engineer Sales Relationship Specialty Start Date End Date Jyoti Cope DO [address] [place] [place] [place] [address] PCP - General Family Practice 01/08/23
[2023-10-09] MEDS: LACTATED RINGERS 1000 ML 1,000 ML 100 ML IV (07:10)
[2023-10-09] MEDS: ETHYL CHLORIDE 1 APPLICATION 1 APPLIC TOPICAL (07:35)
[2023-10-09] MEDS: SODIUM CHLORIDE 0.9 % (FLUSH) 10 ML SYRINGE IVF (07:35)
[2023-10-09 07:51] LABS: Ur HCG Qualitative* Negative (Negative)
--- NOTE | 2023-10-09 08:17 | W.PM.H&PU ---
History & Physical Update History & Physical Update H&P Reviewed and patient assessed: No changes noted H&P Updates: Patient states that she experienced vaginal bleeding a couple of weeks ago that was heavy and lasted for 2 days which is unusual for her. Otherwise, pelvic pain continues to be the same. No fever, no chills, no abnormal vaginal discharge.
[2023-10-09] MEDS: CEFAZOLIN 2 GM INJ IVP (08:36)
[2023-10-09] MEDS: BUPIVACAINE 0.5% 30 ML INJECTION (08:43)
[2023-10-09] MEDS: BUPIVACAINE 0.25% 30 ML INJECTION (09:30)
[2023-10-09] MEDS: SILVER NITRATE APPLICATOR 1 EACH STICK..EA. TOPICAL (09:47)
--- NOTE | 2023-10-09 10:05 | W.ANESCHARGE ---
Anesthesia Charges Start Date/Time Anesthesia Start Date: 10/09/23 Anesthesia Start Time: 08:09 Stop Date/Time Anesthesia Stop Date: 10/09/23 Anesthesia Stop Time: 10:11
--- NOTE | 2023-10-09 10:09 | P.GYNPRC_ITS ---
Procedure Note Date of procedure: 10/09/23 Will [facility] bill your pro fee for this procedure?: Yes Pre-op diagnosis: Abnormal uterine bleeding, chronic pelvic pain Post-op diagnosis: Abnormal uterine bleeding, chronic pelvic pain Procedure: Hysteroscopy, dilation and curettage, diagnostic laparoscopy, lysis of adhesions, peritoneal biopsies. Anesthesia: GETA Complications: None Surgeon: Caty Ramirez MD Medical Reception: Bonny Mark Estimated blood loss (mL): 10 IV fluids (mL): 1,000 Urine Output (mL): 300 Pathology: specimen obtained, sent to pathology (1. left ovarian fossa peritoneal biopsy 2. left uterosacral peritoneal biopsy 3. posterior uterine serosa biopsy 4. endometrial curettings) Condition: stable Disposition: same day Findings: Bimanual exam: anteverted uterus of normal size, no adnexal masses palpated. Speculum exam: cervix grossly normal w/o abnormal discharge or lesions. Uterine sound:10cm. Hysteroscopy findings: thick and fluffy endometrium, bilateral cornual openings seen. Lower uterine segment thoroughly evaluated anteriorly at the level of uterine scar fleshy tissue looks like polypoid tissue, after removal scar intact, no gross evidence o f abnormal placentation or defect. Intra abdominal survey: Grossly normal liver, stomach, gallbladder. Grossly normal appendix. Omental adhesion to midline anterior abdominal wall below umbilicus. Uterus anteverted of about 10cm. Anterior serosal adhesion to bladder peritoneum. Endometriosis looking lesions at the left ovarian fossa (round dark brown papular lesion of about 4-5mm) and left uterosacral ligament (powder gun lesion). Left small paratubal cyst of less than 0.5cm. Uterine serosa mostly on the posterior aspect of the uterus noted to have multiple fleshy looking papular, macular lesions. Anterior uterine wall with a small serosal fibroid of about 1cm, looked calcified. Otherwise grossly normal ovaries and fallopian tubes bilaterally. Procedure Description: Patient was taken to the OR with IV fluid running and pneumatic compression stockings applied to the lower extremities. General anesthesia was obtained without difficulty. The patient was placed in the dorsal lithotomy position with Adria type stirrups with knee bent at 30 degree angles. Patient was prepared and draped under usual sterile technique. The bladder was emptied and Serrano catheter placed. Speculum was placed in the vagina. 0.5 % Marcaine plain injected at 11 and 1 o clock of cervix. The anterior lip of the cervix was grasped with a single-tooth tenaculum. The uterus was carefully sounded to 10 cm. The cervical os was sequentially dilated to accommodate the 5 mm TrueClear hysteroscope using Hegar dilators. A 5 mm 30 degree TrueClear hysteroscope was introduced under direct visualization, and the uterus was distended with normal saline. Findings as above. Soft tissue incisor blade from TrueClear hysteroscope system was introduced under direct visualization and endometrial curettings performed. Hysteroscope removed under direct visualization. Uterine manipulator was then introduced. Two Allis clamps were applied to the periumbilical skin for manual elevation of the abdomen. A vertical skin incision was made in the umbilical fold. 5 mm Optiview trocar introduced into the peritoneal cavity without difficulty. Direct visualization confirmed intraperitoneal placement. Pneumoperitoneum was established with CO2 gas to a pressure of 15mmHg. Findings as above. An intra-abdominal survey revealed normal-appearing liver, gallbladder, spleen, and lack of any visceral or vascular injury. The Trendelenburg position was obtained to facilitate pelvic exposure. Two 5 mm trocars were inserted on the bilateral lower quadrants under direct laparoscopic visualization. Peritoneal biopsy/excision of suspected e ndometriosis completed by grasping peritoneum over lesions with a laparoscopic Maryland forceps and with laparoscopic scissors cutting and removing lesions. Monopolar energy added to Maryland instrument and coagulation of small bleeding vessels completed. Chandrakant also placed over to further secure hemostasis. Hemostasis secured. This same procedure was completed for the 3 biopsy sites (left ovarian fossa, left uterosacral ligament and posterior uterine serosa). Hemostasis secured. Anterior lower uterine segment adhesion to bladder was elevated and avascular plane identified and with scissors adhesion was released. Uterine serosa with minimal bleeding that was also treated with Monopolar energy and hemostasis secured. Abdomen and pelvis were thoroughly inspected. Good hemostasis was noted at resection sites. Trocars removed under direct visualization. All instruments were removed from the abdomen and vagina. The pneumoperitoneum was released, and correct instrument counts were confirmed. Skin incisions were closed with 4-0 Monocryl sutures in a subcuticular fashion. The patient was taken to the recovery room in a stable condition. Patient will be discharged from recovery after all the criteria are met for discharge. She was given instructions regarding follow-up [facility]. Postop pain management, lifting restrictions, intercourse restrictions were discussed with patient before surgery all questions were answered. Fluid deficit: 260mL
[2023-10-09] MEDS: MEPERIDINE 25 MG/ML INJ 12.5 MG IVP (10:11)
--- NOTE | 2023-10-09 10:11 | W.ANESCHARGE ---
Anesthesia Charges Start Date/Time Anesthesia Start Date: 10/09/23 Anesthesia Start Time: 08:09 Stop Date/Time Anesthesia Stop Date: 10/09/23 Anesthesia Stop Time: 10:11
[2023-10-09] MEDS: ACETAMINOPHEN 500 MG TABLET 1000 MG PO (10:56)
[2023-10-09] MEDS: OXYCODONE 5 MG TABLET PO (10:56)
== END 2023-10-09 12:02 | disposition home or self-care (01) ==
PROVIDERS: PCP Family Medicine; Visit Provider Obstetrics & Gynecology
PROC: (CPT 49320; principal; 2023-10-09 08:00)
PROC: 0UDB8ZZ Extraction of Endometrium, Via Natural or Artificial Opening Endoscopic (ICD-10-PCS; CPT 58558; 2023-10-09 08:00)
DX: N93.8 Other specified abnormal uterine and vaginal bleeding (principal); G89.29 Other chronic pain; R10.2 Pelvic and perineal pain; N83.8 Other noninflammatory disorders of ovary, fallopian tube and broad ligament; K66.0 Peritoneal adhesions (postprocedural) (postinfection); D25.9 Leiomyoma of uterus, unspecified; N80.102 Endometriosis of left ovary, unspecified depth
CPT/HCPCS: 58558; 58660; 49321; 00840; 36415; 81025; 85018; 86850; 86900; 86901; 88305; A9270; J0665; J0690; J1100; J1630; J1885; J2175; J2405; J2704; J2710; J3010; J7120

== ENCOUNTER 2023-10-13 08:35 | Outpatient (CLI) | payer BC, MEDICAID, SELFPAY ==
--- OUTSIDE RECORDS SUMMARY | 2023-10-31 08:00 | XMS_ITS | Clinical Summary ---
Author Organization [place] Address [address] [place] [address] Care Team Providers Care Compress Engineer Name Role Phone Lamine Pizarro MD Unavailable [phone] Raven Laguna MD Primary Care Provider [phone] Allergies No known active allergies Medications Medication [...] Encounters Date Type Department Care Team Description 10/27/2023 Transcribe Orders [facility] [address] [place] [address] Esme Byrne MD Encounter for preconception consultation (Primary Dx) 09/03/2023 Telephone [facility] [address] [place] [address] Lena Somers RN 08/28/2023 1:30 PM CDT Office Visit [facility] [address] [place], [place] [address] Amarilys Munguia, Libby Mujica MD Yamamura, Yasuko, MD History of demise, not currently (Primary Dx); Encounter for preconception consultation 08/28/2023 12:05 AM CDT - 08/28/2023 11:59 PM CDT Hospital Encounter [facility] [address] [place] [address] Stefano Livingston MD Encounter for preconception consultation Discharge Disposition: Home or Self Care 08/28/2023 Travel 08/21/2023 Travel 08/20/2023 PRE VISIT [facility] [address] [place], [place] [address] Elvira Martin, ELAINE Consult (Preconception- Hx 23 week IUFD, CHTN, Anx/Dep, Hx PreE with SF, Hx CS x 1, Proteinuria) 08/20/2023 Orders Only [facility] [address] [place], [place] [address] Lena Livingston RN Encounter for preconception consultation (Primary Dx) 08/20/2023 Telephone [facility] [address] [place], [place] [address] Elvira Martin RN 08/20/2023 Care Coordination [facility] [address] [place], [place] [address] Lena Livingston RN 08/20/2023 Care Coordination [facility] [address] [place], [place] [address] Elvira Martin RN 08/20/2023 Telephone [facility] [address] [place] [address] Lena Livingston RN 08/15/2023 Transcribe Orders [facility] [address] [place] [phone] Esme Byrne MD related condition, antepartum (Primary Dx) 08/13/2023 Medical Correspondence [facility] [address] [place] [address] Scan, Non-Provider RECORD from Last 3 Months Social History Tobacco Use Types Packs/Day Years Used Date Smoking Tobacco: Former Cigarettes 0.5 2 Tobacco Cessation:Counseling Given: Not Answered Adolescent Education Answer Date Record ed Getting School Help Needed Not on file 04/22 Sex and Gender Information Value Date Recorded Sex Assigned at Female 06/19/2023 11:52 AM HAND WELT BUTTER Gender Identity Female 06/19/2023 11:52 AM HAND WELT BUTTER Sexual Orientation Straight 06/19/2023 11 :52 AM HAND WELT BUTTER Last Filed Vital Signs Vital Sign Reading [...] - HIM SCAN 08/25/2023 12:00 AM CDT from Last 3 Months Results * Anti [...] UM SPECIALTY CORE/PROT/ENDO UM Specialty Core/Prot/Endo [address] [facility] [address] Building, Room [address] * hCG Quantitative (08/28/2023 3:18 PM [...] Livingston MD LAB - BLOOD ORDERABL ES Performing Organization Address City/[facility]/ZIP Co de Phone Number UR LABORATORY [facility] Acute Care Lab [address] [facility], [address] [place] [phone] * Comprehensive metabolic panel (08/28/2023 [...] LAB - BLOOD ORDERABL ES UR LABORATORY [facility] Acute Care Lab [address] [facility], [address] [place] [phone] * (ABNORMAL) CBC with Platelets (08/28/2023 3:18 PM CDT) [facility] WBC Count 9.3 4.0 - 11.0 10e3/uL [...] LAB - BLOOD ORDERABL ES UR LABORATORY [facility] Acute Care Lab [address] [facility], Room [address] [phone] * CT [facility] (08/28/2023 [...] findings. JOSE MORROW MD Stefano Livingston MD [facility] CT ORDERABLES * US Imaging - HIM Scan (08/25/2023 12:00 AM CDT) Anatomical Region Laterality Modality Other 08/25/2023 Provider Outside [facility] US ORDERABLES from Last 3 Months Care Teams Compress Engineer Relationship Specialty Start Date End Date Raven Laguna MD [address] [address] PCP - General tax lawyer 04/23/23 Lamine Pizarro MD [address] [place] [address] Nephrology 04/23/23
--- OUTSIDE RECORDS SUMMARY | 2023-10-31 08:00 | XMS_ITS | Referral Summary ---
Author Organization [place] Address [address] [place] [address]. [place] [address] Care Team Providers Care Hardboard Panel Printer Name Role Phone Lamine Pizarro MD Unavailable [phone] Raven Laguna MD Primary Care Provider [phone] Encounters Date Type Department Care Team Description 10/27/2023 Transcribe Orders [facility] [address] [facility] [address] [place] [phone] Esme Byrne MD Encounter for preconception consultation (Primary Dx) 09/03/2023 Telephone [facility] Maternal [facility] [address] [place] [address] Lena Somers RN 08/28/2023 12:05 AM CDT - 08/28/2023 11:59 PM CDT Hospital Encounter [facility] [address] [place] [phone] Stefano Livingston MD Encounter for preconception consultation Discharge Disposition: Home or Self Care 08/28/2023 Travel 08/28/2023 1:30 PM CDT Office Visit [facility] [address] [place] [place] [address] Amarilys Munguia CNM Burn, Martina, MD Yamamura, Yasuko, MD History of demise, not currently (Primary Dx); Encounter for preconception consultation 08/21/2023 Travel 08/20/2023 PRE VISIT [facility]aternal [facility] [address] [place] [address] Elvira Martin, RN Consult (Preconception- Hx 23 week IUFD, CHTN, Anx/Dep, Hx PreE with SF, Hx CS x 1, Proteinuria) 08/20/2023 Orders Only [facility] Maternal Medicine [facility] [address] [place] [address] Lena Livingston RN Encounter for preconception consultation (Primary Dx) 08/20/2023 Telephone [facility] Maternal Medicine [facility] [address] [place], [place] [address] Elvira Martin RN 08/20/2023 Care Coordination [facility]aternal Medicine [facility] [address] [place] [address] Lena Livingston RN 08/20/2023 Care Coordination [facility]aternal [facility] [address] [place], [place] [address] Elvira Martin RN 08/20/2023 Telephone [facility] Maternal Medicine [facility] [address] [place], [place] [address] Lena Livingston RN 08/15/2023 Transcribe Orders [facility] Maternal Medicine [facility] [address] [facility] [address] [place] [address] Esme Byrne MD related condition, antepartum (Primary Dx) 08/13/2023 Medical Correspondence [facility] [address] [place] [address] Scan, Non-Provider RECORD from Last 3 Months Allergies No known [...] Sex Assigned at Female 06/19/2023 11:52 AM TREKKING GUIDE Gender Identity Female 06/19/2023 11:52 AM TREKKING GUIDE Sexual Orientation Straight 06/19/2023 11 :52 AM TREKKING GUIDE Last Filed Vital Signs Vital Sign Reading [...] - BLOOD ORDERABL ES UM SPECIALTY CORE/PROT/ENDO Specialty Core/Prot/Endo [address] [facility], Room [address] * hCG Quantitative (08/28/2023 3:18 PM CDT) hCG Quantitative <1 <5 mIU/mL 08/28/19 24 4:14 PM CDT UR LABORATORY Comment: Adult: 0-5 mIU/mL for healthy non- person Neonates: Should be within normal ranges by 2 days after Blood STRUCTURE OF LEFT UPPER LIMB / Unknown Venipuncture / Unknown 08/28/2023 3:18 PM CDT 08/28/2023 3:46 PM CDT Stefano Livingston MD LAB - BLOOD ORDERABL ES UR LABORATORY [facility] Acute Care Lab [address] [facility], [address] [place] [phone] [address] * Comprehensive metabolic panel (08/28/2023 3:18 PM CDT) [facility] Sodium 142 135 - 145 mmol/L 08/28/2023 [...] ORDERABL ES UR LABORATORY [facility] Acute Care Lab [address] [facility], [address] [place] [phone] * (ABNORMAL) CBC with Platelets (08/28/2023 [...] ORDERABL ES UR LABORATORY [facility] Acute Care Lab [address] [facility], [address] [place] [address] * CT [facility] (08/28/2023 12:05 [...] agree with the findings. JOSE MORROW MD Setfano Livingston MD [facility] CT ORDERABLES * US Imaging - HIM Scan (08/25/2023 12:00 AM CDT) Anatomical Region Laterality Modality Other 08/25/2023 Provider Outside IMG US ORDERABLES from Last 3 Months Care Teams Hardboard Panel Printer Relationship Specialty Start Date End Date Raven Laguna MD [facility] [address] [place] [address] PCP - General army ranger 04/23/23 Lamine Pizarro MD [address] [place] [address] Nephrology 04/23/23
--- OUTSIDE RECORDS SUMMARY | 2023-10-31 08:00 | XMS_ITS | Encounter Summary ---
Author Organization [place] Address [facility] [place] [address] Care Team Providers Care Systems Support Engineer Name Role Phone Lamine Pizarro MD Unavailable [phone] Raven Laguna MD Primary Care Provider [phone] Encounter Details Date Type Department Care Team (Late st Contact Info) Description 09/03/2023 Telephone [facility] [address] [place] [address] RN Social History Tobacco Use Types Packs/Day Years Used Date Smoking Tobacco: Former Cigarettes 0.5 2 Adolescent Education Answer Date Record ed Getting School Help Needed Not on file 04/22 Sex and Gender Information Value Date Recorded Sex Assigned at Female 06/19/2023 11:52 AM INFORMATION TECHNOLOGY PROJECT MANAGER Gender Identity Female 06/19/2023 11:52 AM INFORMATION TECHNOLOGY PROJECT MANAGER Sexual Orientation Straight 06/19/2023 11 :52 AM INFORMATION TECHNOLOGY PROJECT MANAGER documented as of this encounter Miscellaneous Notes * Telephone Encounter - Lena Lane RN - 09/03/2023 3:42 PM CDT Automobile Technician spoke to Dr. Livingston and ticket writer to call pt with normal lab results. Patient had plan discussed with Dr. Ray Garcia and is aware of MRI tomorrow. Pt is aware of plan and follow up with primary at this time. documented in this encounter Plan of Treatment Not on file documented as of this encounter Visit Diagnoses Not on filedocumented in this encounter Care Teams Systems Support Engineer Relationship Specialty Start Date End Date Raven Laguna MD [facility] [address] [place] [address] PCP - General normalizer 04/23/23 Lamine Pizarro MD [address] [place] [address] Nephrology 04/23/23 documented as of this encounter
--- OUTSIDE RECORDS SUMMARY | 2023-10-31 08:00 | XMS_ITS | Encounter Summary ---
Author Organization [place] Address [address] [place] [address]. [place] [address] Care Team Providers Care Flight Crew Ordnanceman Name Role Phone Lamine Pizarro MD Unavailable [phone] Raven Laguna MD Primary Care Provider [phone] Reason for Visit * Diagnostic Imaging CT Scan (Routine) - Pending Review Specialty Diagnoses / Procedures Referred By Kevin montalvo Referred To Contact Radiology. Diagnoses Encounter for preconception consultation Procedures [facility] Stefano Livingston MD [address] [place] [address] Referral ID Status Reason Start Date Expiration Date V isits Requested Visits Authorized [id number] Pending Review 08/28/2023 08/27/2024 1 1 Encounter Details Date Type Department Care Team (Latest Contact Info) Description 08/28/2023 12:05 AM CDT - 08/28/2023 11:59 PM CDT Hospital Encounter [facility] Imaging [address] [place] [address] Stefano Livingston MD [address] [place] [address] Encounter for preconception consultation Discharge Disposition: Home or Self Care Social History Tobacco Use Types Packs/Day Years Used Date Smoking Tobacco: Former Cigarettes 0.5 2 Adolescent Education Answer Date Record ed Getting School Help Needed Not on file 04/22 Sex and Gender Information Value Date Recorded Sex Assigned at Female 06/19/2023 11:52 AM ASSEMBLER ERECTOR Gender Identity Female 06/19/2023 11:52 AM ASSEMBLER ERECTOR Sexual Orientation Straight 06/19/2023 11 :52 AM ASSEMBLER ERECTOR documented as of this encounter Medications at [...] consultation documented in this encounter Care Teams Flight Crew Ordnanceman Relationship Specialty Start Date End Date Raven Laguna MD [address] [address] PCP - General burrer hand 04/23/23 Lamine Pizarro MD [address] [place] [address] Nephrology 04/23/23 documented as of this encounter
--- OUTSIDE RECORDS SUMMARY | 2023-10-31 08:00 | XMS_ITS | Encounter Summary ---
Author Organization [place] Address [address] [place] [address] Care Team Providers Care Arc Cutter Name Role Phone Lamine Pizarro MD Unavailable [phone] Raven Laguna MD Primary Care Provider [phone] Reason for Referral * Consultation (Routine: Next available opening) - Pending Review Specialty Diagnoses / Procedures Referred By Kevin montalvo Referred To Contact Diagnoses Encounter for preconception consultation Esme Ramirez MD [address] [place] [address] Maternal Med [address] [facility] [address] [place] [address] Referral ID Status Reason Start Date Expiration Date V isits Requested Visits Authorized [id number] Pending Review 10/27/2023 10/26/2024 1 1 Question Answer Preferred Location: [facility] Indication: personal hx of other complications of pregnacny, childbirth, and KARMA PORTILLO Consultation (unrelated to Ultrasound findings): Yes Inflammatory Bowel Disease Clinic: Joint MFM and GI Consultation: No Chronic Kidney Disease: Joint MFM and Nephrology Consultation No Genetic Counseling Consultation: No fax [facility] - Angela Ramirez - Comments >> Patient may proceed with recommendations for further testing as directed by the Maternal Medicine Specialist >> Please be aware that coverage of these services is subject to the terms and limitations of your health insurance plan. Call member services at your health plan with any benefit or coverage questions. Encounter Details Date Type Department Care Team (Latest Contact Info) Description 10/27/2023 Transcribe Orders [facility] [place] [address] [facility] [address] [place] [address] Esme Ramirez MD [address] [place] [address] Encounter for preconception consultation (Primary Dx) Social History Tobacco Use Types Packs/Day Years Used Date Smoking Tobacco: Former Cigarettes 0.5 2 Adolescent Education Answer Date Record ed Getting School Help Needed Not on file 04/22 Sex and Gender Information Value Date Recorded Sex Assigned at Female 06/19/2023 11:52 AM PROJECT SCHEDULER Gender Identity Female 06/19/2023 11:52 AM PROJECT SCHEDULER Sexual Orientation Straight 06/19/2023 11 :52 AM PROJECT SCHEDULER documented as of this encounter Plan of Treatment Scheduled Referrals Name Type Priority Associated Diagnoses Orde r Schedule Mat Med CTR Referral - Preconception Referral Routine: Next available opening Encounter for preconception consultation Expected: 10/27/2023 (Approximate), Expires: 04/24/2024 documented as of this encounter Visit Diagnoses Diagnosis Encounter for preconception consultation- Primary documented in this encounter Care Teams Arc Cutter Relationship Specialty Start Date End Date Raven Laguna MD [facility] [address] [place] [address] PCP - General clockmaker 04/23/23 Lamine Pizarro MD [address] [place], [place] [address] Nephrology 04/23/23 documented as of this encounter
--- OUTSIDE RECORDS SUMMARY | 2023-10-31 08:01 | XMS_ITS | Encounter Summary ---
Author Organization [place] Address [address] [place] [address]. [place] [address] Care Team Providers Care Per Diem Physical Therapist Assistant Name Role Phone Lamine Pizarro MD Unavailable [phone] Raven Laguna MD Primary Care Provider [phone] Encounter Details Date Type Department Care Team (Latest Contact Info) Description 08/13/2023 Medical Correspondence [facility] [address] [place] [address] Scan, Non-Provider RECORD Social History Tobacco Use Types Packs/Day Years Used Date Smoking Tobacco: Never Assessed Adolescent Education Answer Date Record ed Getting School Help Needed Not on file 04/22 Comments Yes Sex and Gender Information Value Date Recorded Sex Assigned at Female 06/19/2023 11:52 AM SIENE MAKER Gender Identity Female 06/19/2023 11:52 AM SIENE MAKER Sexual Orientation Straight 06/19/2023 11 :52 AM SIENE MAKER documented as of this encounter Plan of Treatment Not on file documented as of this encounter Visit Diagnoses Not on filedocumented in this encounter Care Teams Per Diem Physical Therapist Assistant Relationship Specialty Start Date End Date Raven Laguna MD [facility] [address] [place] [address] PCP - General regulatory affairs portfolio leader 04/23/23 Lamine Pizarro MD [address] [place] [address] Nephrology 04/23/23 documented as of this encounter
--- OUTSIDE RECORDS SUMMARY | 2023-10-31 08:01 | XMS_ITS | Clinical Summary ---
Author Organization [employer] Address [place], [place] [address] Care Team Providers Care Multimedia Programmer Name Role Phone Jyoti Cope DO Primary Care Provider [phone] Allergies Active Allergy Reactions Criticality Noted Date Comments Sulfa (Sulfonamide Antibiotics) *Unknown Unknown 06/27 Medications Medication Sig Dispensed Refills Start Date End Date Status Agzsgcib-Da-Yjx-F e-FA tab tablet Take 1 Tablet by [...] Encounters Date Type Department Care Team Description 10/10/2023 Orders Only [facility] Scanner 1 scan: (1-Ord) INCOMING RECORDS-PATHOLOGY, CONSOLIDATED PATHOLOGY, 10/10/2023 10/09/2023 Lab Requisition [facility] [phone] Esme Ramirez MD 09/16/2023 11:00 AM CDT Preop Visit [facility] [address] [place] [address] Shaqra Jyoti Renetta, DO Preoperative Exam (10/09/23 - Hysteroscopy - Dr. Ramirez - [facility] - ); Derm Problem (Moles on arms) 09/16/2023 Travel 09/10/2023 Telephone [facility] [address] [facility] [address] Zeferinoqra Jyoti Renetta, DO Prior Authorization (PA DENIED - CT ABDOMEN PELVIS W - P2P Requested) 09/04/2023 12:56 PM CDT - 09/04/2023 11:59 PM CDT Hospital Encounter [address] [address] Anatoliy Jyoti Renetta, DO Pelvic pain; History of demise, not currently ; Endometritis following delivery 09/04/2023 Travel 09/02/2023 11:30 AM CDT Ancillary Procedure [facility] [address] [place] [address] 09/02/2023 10:35 AM CDT Office Visit [address] [place] [address] Maninderra Jyoti Renetta, DO Vaginal Bleeding (Bloody discharge on/off over the last 24 hours, uterine cramping/pain); Lab (Repeat labs? 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) 08/27/2023 Travel 08/25/2023 Orders Only [facility] Scanner 1 scan: (1-Ord) [place], PELVIC TA and TV, 08/25/2023 from Last 3 Months Immunizations Name Administration [...] Procedure Name Priority Date/Time Associated Diagnosis Comments SCAN CORRESP-LABORATORY RESULTS 10/10/2023 12:00 AM CDT LAB TRACKING EVENT Routine 10/09/2023 12 :00 PM CDT PATH TISSUE EXAM Routine 10/09/2023 9:00 AM CDT CREATININE Routine 09/16/2023 11:20 AM CDT Pre-op [...] pain SCAN-ULTRASOUND REPORT 08/25/2023 12:00 AM CDT CLINICAL SAFETY MANAGER THIN PREP PAP SCREEN IMAGED Routine 03/12/2019 3:17 PM CDT Routine general medical examination at health care facility Screening for malignant neoplasm of cervix from Last 3 Months or Most Recently Relevant to Health Maintenance Results * SCAN CORRESP-LABORATORY RESULTS (10/10/2023 12:00 AM CDT) Scanner OTHER * LAB TRACKING EVENT (10/09/2023 12:00 PM CDT) Other (Other) Client Collect / Unknown 10/09/2023 12:00 PM CDT 10/09/2023 10:14 PM CDT Esme Ramirez MD LAB BILL O NLY [facility] [address] [place] [address], * PATH TISSUE EXAM (10/09/2023 9:00 AM CDT) Case Report Pathology Report ?Case: [id number] ? Authorizing Provider: ??Esme Ramirez ??Collected: ? 10/09/2023 0900 ? M, MD ? Ordering Location: ? [facility] ?Received: ?10/10/2023 0855 ? Pathologist: ? Clarice Roman MD ? Specimens: ?? A) - Endometrial Curettings ? B) - Left Ovarian Biopsy ? C) - Uterus, left uterosacral ligament biopsy ? D) - Uterus, uterine serosa ? 10/14/2023 11:13 AM [facility]NOTE 3[facility] Final Diagnosis A) ENDOMETRIUM, CURETTAGE: 1. Fragments of benign endometrial polyp(s) 2. Background proliferative endometrium 3. Negative for atypia and malignancy B) LEFT OVARY, BIOPSY: 1. Endometriosis 2. Negative for malignancy C) LEFT UTEROSACRAL LIGAMENT BIOPSY: 1. Smooth muscle and fibroadipose with changes suggestive of endometriosis 2. Negative for malignancy D) UTERINE SEROSA, BIOPSY: 1. Mature smooth muscle 2. Negative for malignancy 10/14/2023 11:13 AM [facility]NOTE 3] [facility] Clinical Information Chronic pelvic pain and AUB 10/14/2023 11:13 AM CDT [facility] Gross Description A) Received in formalin, labeled with the patient's name and endometrial curetting, is a cloth stockinette with a 2.5 x 2.5 x 0.5 cm aggregate of pink-grhaam friable tissue, entirely submitted in 2 cassettes. B) Received in formalin, labeled with the patient's name and left ovarian fossa biopsy, is a 0.8 x 0.7 x 0.1 cm pink-graham fibromembranous tissue with a 0.3 x 0.3 x 0.3 cm dark maroon polypoid area. ??The specimen is trisected and the tissue is entirely submitted in 1 cassette. C) Received in formalin, labeled with the patient's name and left uterosacral ligament biopsy, is a 0.8 x 0.5 x 0.2 cm pink-graham fibromembranous tissue, bisected and entirely submitted in 1 cassette. D) Received in formalin, labeled with the patient's name and uterine serosa, is a 0.2 x 0.2 x 0.1 cm pink-graham tissue, entirely submitted in 1 cassette. TRB 10/10/2023 10/14/2023 11:13 AM CDT [facility] Microscopic Description The final diagnosis is based on microscopic examination of appropriate sections of all specimens. 10/14/2023 11:13 AM CDT [facility] Additional Information Interpreted at [facility], Central Laboratory - [address] [place] [address] 10/14/2023 11:13 AM [facility] Other (Endometrial Curettings) 10/09/2023 9:00 AM CDT 10/10/2023 8:55 AM CDT Specimen (specimen) (Left Ovarian Biopsy) 10/09/2023 9:24 AM CDT 10/10/2023 8:55 AM CDT Specimen (specimen) SPECIMEN FROM UTERUS / Unknown 10/09/2023 9:26 AM CDT 10/10/2023 8:55 AM CDT Specimen (specimen) SPECIMEN FROM UTERUS / Unknown 10/09/2023 9:30 AM CDT 10/10/2023 8:55 AM CDT Esme Ramirez MD PATHOLOGY/ CYTOLOGY Performing Organization Address [facility] Co de Phone Number [facility] [address] [place] [address], * CREATININE (09/16/2023 11:20 AM CDT) eGFR >90 >90 mL/min/1.7 3m2 09/16/2023 9:40 PM CDT [facility] Comment:As of 2021, eG FR is calculated by the CKD-EPI creatinine equation without race adjustment. ??eGFR can be influenced by muscle mass, exercise, and diet. ??The reported eGFR is an estimation only and is only applicable if the renal function is stable. CREATININE 0.70 0.50 - 0.90 mg/dL 09/16/2023 9:40 PM CDT [facility] Blood BLOOD SPECIMEN / Unknown Venipuncture / Unknown 09/16/2023 11:20 AM CDT 09/16/2023 11:22 AM CDT Jyoti Cope DO CHEMISTRY Performing Organization Address [facility] Co de Phone Number [facility] [address] [place] [address], [place] * MR PELVIS OVARY OR UTERUS WWO (09/04/2023 2:36 PM CDT) Anatomical Region Laterality Modality Pelvis, UTERUS Magnetic Resonan ce 09/04/2023 2:36 PM CDT Impressions 09/04/2023 3:11 PM CDT Normal pelvic MRI. No evidence of retained products of conception, arteriovenous malformation, or other explanation for symptoms. Narrative 09/04/2023 3:11 PM CDT For Patients: As a result of the Century Cures Act, medical imaging exams and procedure reports are released immediately into your electronic medical record. You may view this report before your referring provider. If you have questions, please contact your health care provider. EXAM: MR PELVIS OVARY OR UTERUS WWO [facility] DATE: 09/04/2023 INDICATION: Pelvic Pain History Of [...] MR PELVIS OVARY OR UTERUS WWO LOCATION: [facility] DATE: 09/04/2023 INDICATION: Pelvic Pain History [...] @ 09/02/2023 12:23:39 PM (Electronically Signed) Jyoti Cope DO CT * CBC WITH AUTO DIFFERENTIAL (09/02/2023 11:15 AM CDT) [facility] BLOOD COUNT 7.7 4.5 - 11.0 thou/cu mm 09/02/2023 11:22 AM CDT [facility] RED BLOOD COUNT 5.13 4.00 - 5.20 mil/cu mm 09/02/2023 11:22 AM CDT [facility] HEMOGLOBIN 14.7 12.0 - 16.0 g/dL 09/02/2023 11:22 AM CDT [facility] HEMATOCRIT 43.0 33.0 - 51.0 % 09/02/2023 11:22 AM CDT [facility] MCV 84 80 - 100 fL 09/02/2023 11:22 AM CDT [facility] MCH 28.7 26.0 - 34.0 pg 09/02/2023 11:22 AM CDT [facility] MCHC 34.2 32.0 - 36.0 g/dL 09/02/2023 11:22 AM CDT [facility] RDW 12.8 11.5 - 15.5 % 09/02/2023 11:22 AM CDT [facility] PLATELET COUNT 251 140 - 440 thou/cu mm 09/02/2023 11:22 AM CDT [facility] MPV 10.2 6.5 - 11.0 fL 09/02/2023 11:22 AM CDT [facility] % NEUT 59.6 % 09/02/2023 11:22 AM CDT [facility] % LYMPH 31.6 % 09/02/2023 11:22 AM CDT [facility] % MONO 5.6 % 09/02/2023 11:22 AM CDT [facility] % EOS 2.9 % 09/02/2023 11:22 AM CDT [facility] % BASO 0.3 % 09/02/2023 11:22 AM CDT [facility] ABSOLUTE NEUTROPHILS 4.6 1.7 - 7.0 thou/cu mm 09/02/2023 11:22 AM CDT [facility] ABSOLUTE LYMPHOCYTES 2.4 0.9 - 2.9 thou/cu mm 09/02/2023 11:22 AM CDT [facility] ABSOLUTE MONOCYTES 0.4 <0.9 thou/cu mm 09/02/2023 11:22 AM CDT [facility] ABSOLUTE EOSINOPHILS 0.2 <0.5 thou/cu mm 09/02/2023 11:22 AM CDT [facility] ABSOLUTE BASOPHILS 0.0 <0.3 thou/cu mm 09/02/2023 11:22 AM CDT [facility] Blood BLOOD SPECIMEN / Unknown Venipuncture / Unknown 09/02/2023 11:15 AM CDT 09/02/2023 11:16 AM CDT Jyoti Cope DO HEMATOLOGY [facility] [address] [place] [address], [place] [phone] * C-REACTIVE PROTEIN (09/02/2023 11:15 AM CDT) C-REACTIVE PROTEIN <0.3 <0.5 mg/dL 09/02/2023 9:50 PM CDT [facility] Blood BLOOD SPECIMEN / Unknown Venipuncture / Unknown 09/02/2023 11:15 AM CDT 09/02/2023 11:16 AM CDT [facility] Performing Organization Address City/Va Hospital/ZIP Co de Phone Number [facility] [address] [address], [place] * UA W/ SEDIMENT EXAM REFLEXED PER CRITERIA (09/02/2023 11:03 AM CDT) COLOR Yellow Yellow Color 09/02/2023 11:11 AM CDT [facility] CLARITY Clear Clear Clarity 09/02/2023 11:11 AM CDT [facility] SPECIFIC GRAVITY,URINE 1.010 1.010, 1.015, 1.020, 1.025 09/02/2023 11:11 AM CDT [facility] PH,URINE 6.0 6.0, 7.0, 8.0, 5.5, 6.5, 7.5, 8.5 09/02/2023 11:11 AM CDT [facility] UROBILINOGEN, QUALITATIVE Normal Normal EU/dl 09/02/2023 11:11 AM CDT [facility] PROTEIN, URINE Negative Negative mg/dL 09/02/2023 11:11 AM CDT [facility] GLUCOSE, URINE Negative Negative mg/dL 09/02/2023 11:11 AM CDT [facility] KETONES,URINE Negative Negative mg/dL 09/02/2023 11:11 AM CDT [facility] BILIRUBIN,URI NE Negative Negative 09/02/2023 11:11 AM CDT [facility] OCCULT BLOOD,URINE Negative Negative 09/02/2023 11:11 AM CDT [facility] NITRITE Negative Negative 09/02/2023 11:11 AM CDT [facility] LEUKOCYTE ESTERASE Negative Negative 09/02/2023 11:11 AM CDT [facility] Urine URINE SPECIMEN / Unknown Non-Blood / Unknown 09/02/2023 11:03 AM CDT 09/02/2023 11:08 AM CDT Jyoti Cope DO URINE [facility] [address] [place] [address], * SCAN-ULTRASOUND REPORT (08/25/2023 12:00 AM CDT) Anatomical Region Laterality Modality Other Scanner OTHER * CLINICAL SAFETY MANAGER THIN PREP PAP SCREEN IMAGED (03/12/2019 3:17 PM CDT) Case Report Gynecologic Cytology Report ? Case: [id number] ? Authorizing Provider: ??Roslyn Bentley MD ? Collected: ? 03/12/2019 1517 ? Ordering Location: ? [facility] ?Received: ?03/12/2019 1518 ? Clinic ? First Screen: ?Orin Mancuso ? Specimen: ?CLINICAL SAFETY MANAGER ThinPrep Vial Screening, Cervical ? 03/23/2019 10:42 AM CDT [facility] INTERPRETATION/ RESULT NEGATIVE FOR INTRAEPITHELIAL LESION OR MALIGNANCY (NIL) (none) 03/23/2019 10:42 AM CDT [facility] IMEN ADEQUACY Satisfactory for evaluation Endocervical component present 03/23/2019 10:42 AM CDT [facility] HPV REQUEST HPV if ASCUS 03/23/2019 10:42 AM CDT [facility] Date of LMP 02/19/2019 03/23/2019 10:42 AM CDT [facility] Last Pap Date at least 5 years ago 03/23/2019 10:42 AM CDT [facility] Last Pap Result First Pap/Unknown 10:42 AM CDT [facility] Abnormal Pap or [place] Bx in last 5 years No 03/23/2019 10:42 AM CDT [facility] Menstrual Status Regular Periods 03/23/2019 10:42 AM CDT [facility] [place] Bx Done Today No 03/23/2019 10:42 AM CDT [facility] Additional Information None given 03/23/2019 10:42 AM CDT [facility] Automated Review Successful 03/23/2019 10:42 AM CDT [facility] Comment:Specimen processed s uccessfully by automated assembly room supervisor device, ThinPrep Imaging System, [employer] Note The pap test is a [...] lesions. Cytology is screened and interpreted at [facility] - [address], [place] [address] and [facility] - [address]; [place] [address] and [facility] - [address]; [place] [address] and [facility] [address]; [place] [address] 03/23/2019 10:42 AM CDT [facility] Other (Cervical) Non-Blood / Unknown 03/12/2019 3:17 PM CDT 03/12/2019 3:18 PM CDT Roslyn Bentley MD PATHOLOGY/CYTOLOGY [facility] [address] [place] [address], [place] from Last 3 Months or Most Recently Relevant to Health Maintenance Care Teams Multimedia Programmer Relationship Specialty Start Date End Date Jyoti Cope DO [address] [place] [address] PCP - General Family Practice 01/08/23
--- OUTSIDE RECORDS SUMMARY | 2023-10-31 08:01 | XMS_ITS | Encounter Summary ---
Author Organization [place] Address [facility] [place] [address] Care Team Providers Care Boarding Kennel Or Cattery Operator Name Role Phone Lamine Pizarro MD Unavailable [phone] Raven Laguna MD Primary Care Provider [phone] Reason for Visit * Reason Comments Consult Preconception- Hx 23 week IUFD, CHTN, Anx/Dep, Hx PreE with SF, Hx CS x 1, Proteinuria Encounter Details Date Type Department Care Team (Late st Contact Info) Description 08/20/2023 PRE VISIT [facility] Maternal Medicine [facility] [address] [place] [address] Elvira Martin, RN Consult (Preconception- Hx 23 [...] Sex Assigned at Female 06/19/2023 11:52 AM PHLEBOTOMY COORDINATOR Gender Identity Female 06/19/2023 11:52 AM PHLEBOTOMY COORDINATOR Sexual Orientation Straight 06/19/2023 11 :52 AM PHLEBOTOMY COORDINATOR documented as of this encounter Plan of Treatment Not on file documented as of this encounter Visit Diagnoses Not on filedocumented in this encounter Care Teams Boarding Kennel Or Cattery Operator Relationship Specialty Start Date End Date Raven Laguna MD [address] [address] PCP - General machine cementer 04/23/23 Lamine Pizarro MD [address] [place] [address] Nephrology 04/23/23 documented as of this encounter
--- OUTSIDE RECORDS SUMMARY | 2023-10-31 08:01 | XMS_ITS | Encounter Summary ---
Author Organization [place] Address [address] [place] [address] Care Team Providers Care Program Lead Name Role Phone Lamine Pizarro MD Unavailable [phone] Raven Laguna MD Primary Care Provider [phone] Reason for Referral * Consultation (Routine: Next available opening) - Pending Review Specialty Diagnoses / Procedures Referred By Kevin montalvo Referred To Contact Diagnoses related condition, antepartum Esme Ramirez MD [address] [place] [address] [facility] [address] [place] [address] Referral ID Status Reason Start Date Expiration Date V isits Requested Visits Authorized [id number] Pending Review 08/15/2023 08/14/2024 1 1 Question Answer Preferred Location: [facility] [place]OD[facility] 11/10/2023 Ultrasound MFM Recommendation US PROC NONE MFM Issue OTHER (enter details in Comments) - HTN, demise, hx of complications of child MFM Consultation (unrelated to Ultrasound findings): Yes Inflammatory Bowel Disease Clinic: Joint MFM and GI Consultation: No Chronic Kidney Disease: Joint MFM and Nephrology Consultation No Genetic Counseling Consultation: No fax [facility] Esme Ramirez [phone] Comments There is no height or weight [...] (Latest Contact Info) Description 08/15/[address] [facility] M[facility] Medicine [facility] [place] [address] [place] [id number] Esme Ramirez MD [address] [place] [address] related condition, antepartum (Primary Dx) Social History Tobacco Use Types Packs/Day Years Used Date Smoking Tobacco: Never Assessed Adolescent Education Answer Date Record ed Getting School Help Needed Not on file 04/22 Sex and Gender Information Value Date Recorded Sex Assigned at Female 06/19/2023 11:52 AM EMERGENCY SERVICE RESTORER Gender Identity Female 06/19/2023 11:52 AM EMERGENCY SERVICE RESTORER Sexual Orientation Straight 06/19/2023 11 :52 AM EMERGENCY SERVICE RESTORER documented as of this encounter Plan of Treatment Scheduled Referrals Name Type Priority Associated Diagnoses Orde r Schedule [facility] Referral - Referral Routine: Next available opening related condition, antepartum Expected: 08/15/2023 (Approximate), Expires: 02/11/2024 documented as of this encounter Visit Diagnoses Diagnosis related condition, antepartum- Primary documented in this encounter Care Teams Program Lead Relationship Specialty Start Date End Date Raven Laguna MD [facility] [address] [place] [address] PCP - General guitar maker 04/23/23 Lamine Pizarro MD [address] [place] [address] Nephrology 04/23/23 documented as of this encounter
--- OUTSIDE RECORDS SUMMARY | 2023-10-31 08:01 | XMS_ITS | Encounter Summary ---
Author Organization [place] Address [facility] [address] Care Team Providers Care Conference Services Manager Name Role Phone Lamine Pizarro MD Unavailable [phone] Raven Laguna MD Primary Care Provider [phone] Encounter Details Date Type Department Care Team (Late st Contact Info) Description 08/20/2023 Care Coordination [facility] Maternal Medicine Center [address] [place] [address] Lena Livingston RN Social History Tobacco Use Types Packs/Day Years Used Date Smoking Tobacco: Never Assessed Adolescent Education Answer Date Record ed Getting School Help Needed Not on file 04/22 Sex and Gender Information Value Date Recorded Sex Assigned at Female 06/19/2023 11:52 AM NAV[employer] FIG[employer]TER P[employer]OT Gender Identity Female 06/19/2023 11:52 AM [employer] Sexual Orientation Straight 06/19/2023 11 :52 AM NAV[employer] FIGHTER P[employer]OT documented as of this encounter Plan of Treatment Not on file documented as of this encounter Visit Diagnoses Not on filedocumented in this encounter Care Teams Conference Services Manager Relationship Specialty Start Date End Date Raven Laguna MD [facility] [address] [place] [address] PCP - General octave board racker 04/23/23 Lamine Pizarro MD [address] [place] [address] Nephrology 04/23/23 documented as of this encounter
--- OUTSIDE RECORDS SUMMARY | 2023-10-31 08:01 | XMS_ITS | Encounter Summary ---
Author Organization [place] Address [facility] [place] [address] Care Team Providers Care Machine Filler Servicer Name Role Phone Lamine Pizarro MD Unavailable [phone] Raven Laguna MD Primary Care Provider [phone] Encounter Details Date Type Department Care Team (Late st Contact Info) Description 08/20/2023 Care Coordination [facility] Maternal Medicine [address] [place] [address] Elvira Martin, RN Social History Tobacco Use Types Packs/Day Years Used Date Smoking Tobacco: Never Assessed Adolescent Education Answer Date Record ed Getting School Help Needed Not on file 04/22 Sex and Gender Information Value Date Recorded Sex Assigned at Female 06/19/2023 11:52 AM EMERGENCY DEPARTMENT TECHNICIAN Gender Identity Female 06/19/2023 11:52 AM EMERGENCY DEPARTMENT TECHNICIAN Sexual Orientation Straight 06/19/2023 11 :52 AM EMERGENCY DEPARTMENT TECHNICIAN documented as of this encounter Plan of Treatment Not on file documented as of this encounter Visit Diagnoses Not on filedocumented in this encounter Care Teams Machine Filler Servicer Relationship Specialty Start Date End Date Raven Laguna MD [facility] [address] [place] [address] PCP - General hollow handle knife assembler 04/23/23 Lamine Pizarro MD [address] [place] [address] Nephrology 04/23/23 documented as of this encounter
--- OUTSIDE RECORDS SUMMARY | 2023-10-31 08:01 | XMS_ITS | Encounter Summary ---
Author Organization [place] Address [facility] [place] [address] Care Team Providers Care Sumatra Opener Name Role Phone Lamine Pizarro MD Unavailable [phone] Raven Laguna MD Primary Care Provider [phone] Encounter Details Date Type Department Care Team (Late st Contact Info) Description 08/20/2023 Telephone [facility] Maternal Medicine Center [address] [place] [address] Elvira Martin, RN Social History Tobacco Use Types Packs/Day Years Used Date Smoking Tobacco: Never Assessed Adolescent Education Answer Date Record ed Getting School Help Needed Not on file 04/22 Sex and Gender Information Value Date Recorded Sex Assigned at Female 06/19/2023 11:52 AM FLIGHT DATA TECHNICIAN Gender Identity Female 06/19/2023 11:52 AM FLIGHT DATA TECHNICIAN Sexual Orientation Straight 06/19/2023 11 :52 AM FLIGHT DATA TECHNICIAN documented as of this encounter Miscellaneous Notes * Telephone Encounter - Elvira Martin RN - 08/20/2023 1:22 PM CDT Pt returning call. States her sex offender treatment professional is through [place], sees them in [place]. Willing to sign SAV[place]. Gave email address. Denies further questions at this time. Elvira Martin RN documented in this encounter Plan of Treatment Not on file documented as of this encounter Visit Diagnoses Not on filedocumented in this encounter Care Teams Sumatra Opener Relationship Specialty Start Date End Date Raven Laguna MD [facility] [address] [place] [address] PCP - General digital imaging technician 04/23/23 Lamine Pizarro MD [address] [place] [address] Nephrology 04/23/23 documented as of this encounter
--- OUTSIDE RECORDS SUMMARY | 2023-10-31 08:01 | XMS_ITS | Encounter Summary ---
Author Organization [place] Address [address] [place] [address] Care Team Providers Care Order Selector Name Role Phone Lamine Pizarro MD Unavailable [phone] Raven Laguna MD Primary Care Provider [phone] Encounter Details Date Type Department Care Team (Latest Contact Info) Description 08/28/2023 Travel Social History Tobacco Use Types Packs/Day Years Used Date Smoking Tobacco: Former Cigarettes 0.5 2 Adolescent Education Answer Date Record ed Getting School Help Needed Not on file 04/22 Sex and Gender Information Value Date Recorded Sex Assigned at Female 06/19/2023 11:52 AM SUPERVISOR COOLER SERVICE Gender Identity Female 06/19/2023 11:52 AM SUPERVISOR COOLER SERVICE Sexual Orientation Straight 06/19/2023 11 :52 AM SUPERVISOR COOLER SERVICE documented as of this encounter Plan of Treatment Not on file documented as of this encounter Visit Diagnoses Not on filedocumented in this encounter Care Teams Order Selector Relationship Specialty Start Date End Date Raven Laguna MD [facility] [address] [place] [address] PCP - General retail specialist 04/23/23 Lamine Pizarro MD [address] [place] [address] Nephrology 04/23/23 documented as of this encounter
--- OUTSIDE RECORDS SUMMARY | 2023-10-31 08:01 | XMS_ITS | Encounter Summary ---
Author Organization [place] Address Formerly [facility] [place] [address] Care Team Providers Care Front Desk Person Name Role Phone Lamine Pizarro MD Unavailable [phone] Raven Laguna MD Primary Care Provider [phone] Encounter Details Date Type Department Care Team (Late st Contact Info) Description 08/20/2023 Telephone [facility] [address] [place] [address] Lena Livingston, RN Social History Tobacco Use Types Packs/Day Years Used Date Smoking Tobacco: Never Assessed Adolescent Education Answer Date Record ed Getting School Help Needed Not on file 04/22 Sex and Gender Information Value Date Recorded Sex Assigned at Female 06/19/2023 11:52 AM BOOM BOSS Gender Identity Female 06/19/2023 11:52 AM BOOM BOSS Sexual Orientation Straight 06/19/2023 11 :52 AM BOOM BOSS documented as of this encounter Miscellaneous Notes * Telephone Encounter - Lena Livingston RN - 08/20/2023 12:50 PM CDT LM for patient to call M RN coordinator at [phone] regarding referral to [facility] for hx IUFD, 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 Does patient follow with nephrology? Has pt had renal biopsy? Need records for nephrology. Was patient induced with first at 36 weeks due to pree? Lena Livingston RN documented in this encounter Plan of Treatment Not on file documented as of this encounter Visit Diagnoses Not on filedocumented in this encounter Care Teams Front Desk Person Relationship Specialty Start Date End Date Raven Laguna MD [facility] [address] [place] [address] PCP - General poultice machine operator 04/23/23 Lamine Pizarro MD [address] [place] [address] Nephrology 04/23/23 documented as of this encounter
--- OUTSIDE RECORDS SUMMARY | 2023-10-31 08:01 | XMS_ITS | Encounter Summary ---
Author Organization [place] Address [address] [place] [address] Care Team Providers Care Associate Justice Name Role Phone Lamine Pizarro MD Unavailable [phone] Raven Laguna MD Primary Care Provider [phone] Encounter Details Date Type Department Care Team (Latest Contact Info) Description 08/21/2023 Travel Social History Tobacco Use Types Packs/Day Years Used Date Smoking Tobacco: Never Assessed Adolescent Education Answer Date Record ed Getting School Help Needed Not on file 04/22 Sex and Gender Information Value Date Recorded Sex Assigned at Female 06/19/2023 11:52 AM MUSEUM DIRECTOR Gender Identity Female 06/19/2023 11:52 AM MUSEUM DIRECTOR Sexual Orientation Straight 06/19/2023 11 :52 AM MUSEUM DIRECTOR documented as of this encounter Plan of Treatment Not on file documented as of this encounter Visit Diagnoses Not on filedocumented in this encounter Care Teams Associate Justice Relationship Specialty Start Date End Date Raven Laguna MD [facility] [address] [place] [address] PCP - General lock expert 04/23/23 Lamine Pizarro MD [address] [place] [address] Nephrology 04/23/23 documented as of this encounter
--- OUTSIDE RECORDS SUMMARY | 2023-10-31 08:01 | XMS_ITS | Encounter Summary ---
Author Organization [place] Address [address] [place] [address]. [place] [address] Care Team Providers Care Emulsion Coater Name Role Phone Lamine Pizarro MD Unavailable [phone] Raven Laguna MD Primary Care Provider [phone]- [phone] Reason for Referral * Consultation (Routine: Next available opening) - Pending Review Specialty Diagnoses / Procedures Referred By Kevin montalvo Referred To Contact Diagnoses Encounter for preconception consultation Amarilys Munguia CNM [address] [place] [address] Referral ID Status Reason Start Date Expiration Date V isits Requested Visits Authorized [id number] Pending Review 08/20/2023 08/19/2024 1 1 Question Answer MFM Consult Yes Comments MFM PAC preconception consult Encounter Details Date Type Department Care Team (Late st Contact Info) Description 08/20/2023 Orders Only [facility] [place] [address] [place] [address] Lena Livingston RN Encounter for preconception consultation (Primary Dx) Social History Tobacco Use Types Packs/Day Years Used Date Smoking Tobacco: Never Assessed Adolescent Education Answer Date Record ed Getting School Help Needed Not on file 04/22 Sex and Gender Information Value Date Recorded Sex Assigned at Female 06/19/2023 11:52 AM CURBING STONECUTTER Gender Identity Female 06/19/2023 11:52 AM CURBING STONECUTTER Sexual Orientation Straight 06/19/2023 11 :52 AM CURBING STONECUTTER documented as of this encounter Plan of Treatment Scheduled Referrals Name Type Priority Associated Diagnoses Orde r Schedule MFM Office Visit Referral Routine: Next available opening Encounter for preconception consultation Expected: 09/20/2023 (Approximate), Expires: 08/19/2024 documented as of this encounter Visit Diagnoses Diagnosis Encounter for preconception consultation- Primary documented in this encounter Care Teams Emulsion Coater Relationship Specialty Start Date End Date Raven Laguna MD [address] [address] PCP - General artificial stone applicator 04/23/23 Lamine Pizarro MD [address] [place] [address] Nephrology 04/23/23 documented as of this encounter
--- OUTSIDE RECORDS SUMMARY | 2023-10-31 08:01 | XMS_ITS | Encounter Summary ---
Author Organization [place] Address [address] [place] [address] Care Team Providers Care Mine Safety Engineer Name Role Phone Lamine Pizarro MD Unavailable [phone] Raven Laguna MD Primary Care Provider [phone] Reason for Referral * Diagnostic Imaging CT Scan (Routine) - Pending Review Specialty Diagnoses / Procedures Referred By Contdhara t Referred To Contact Radiology. Diagnoses Encounter for preconception consultation [facility] Stefano Livingston MD [address] [place] [address] Referral ID Status Reason Start Date Expiration Date V isits Requested Visits Authorized [id number] Pending Review 08/28/2023 08/27/2024 1 1 Reason for Visit * Reason Comments Consult [id number]/ o IUFD 2nd * Consultation (Routine: Next available opening) - Pending Review Specialty Diagnoses / Procedures Referred By Kevin montalvo Referred To Contact Diagnoses Encounter for preconception consultation Amarilys Munguia CNM [address] [place] [address] Referral ID Status Reason Start Date Expiration Date V isits Requested Visits Authorized [id number] Pending Review 08/20/2023 08/19/2024 1 1 Encounter Details Date Type Department Care Team (Latest Contact Info) Description 08/28/2023 1:30 PM CDT Office Visit [facility] [place] [address] [place] [address] Amarilys Munguia CNM [address] [place] [address] Libby Kaye MD [address] [place] [address] Stefano Livingston MD [address] [place] [address] History of demise, not currently (Primary Dx); Encounter for preconception consultation Social History Tobacco Use Types Packs/Day Years Used Date Smoking Tobacco: Former Cigarettes 0.5 2 Tobacco Cessation:Counseling Given: Not Answered Adolescent Education Answer Date Record ed Getting School Help Needed Not on file 04/22 Sex and Gender Information Value Date Recorded Sex Assigned at Female 06/19/2023 11:52 AM LOCKSTITCH TUNNEL ELASTIC OPERATOR Gender Identity Female 06/19/2023 11:52 AM LOCKSTITCH TUNNEL ELASTIC OPERATOR Sexual Orientation Straight 06/19/2023 11 :52 AM LOCKSTITCH TUNNEL ELASTIC OPERATOR documented as of this encounter Last [...] Dr. Ramirez [facility] for MFM preconception consultation. HPI: Darius Lange is a 32 year old here for [facility] preconception consultation due to a historyof [...] also a cause of demise. 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 Nicolás Fraser MD ECONOMIC CONSULTANT PGY-2 Physician Attestation I, Stefano Livingston MD, [...] the patient (reviewing medical records/tests), in direct [id number] contact with the patient during her visit with the majority spent counseling and discussing the plan of care and documenting the visit in the electronic medical record. Please see note for details. Stefano Livingston MD documented in this encounter Nursing Notes * Lena Lane RN - 08/28/2023 1:30 PM CDT Darius was seen in [facility] Clinic today for h/o IUFD, CHTN, pre-E, proteinuria with NOB with 2nd . Dr. Livingston into see patient. Pt was sent to lab. Pt brought in disk of images and was takento film room and overread ordered. Please see [facility] consult note for recommendations. Patient was [...] LAB - BLOOD ORDERABL ES UR LABORATORY [facility] Acute Care Lab [address] [facility], [address] [place] [address], [facility] * Comprehensive metabolic panel (08/28/2023 3:18 PM [...] LAB - BLOOD ORDERABL ES UR LABORATORY [facility] Acute [facility] Lab [address] [facility], [address] [place] [address] * (ABNORMAL) CBC with Platelets (08/28/2023 3:18 [...] LAB - BLOOD ORDERABL ES UR LABORATORY [facility] Acute Care Lab [address] [facility], [address] [place] [address] * Anti Nuclear Inderjit IgG by IFA [...] UM SPECIALTY CORE/PROT/ENDO UM Specialty Core/Prot/Endo [address] [facility], Room [address] * CT [facility] (08/28/2023 12:05 [...] Tiny fat-containing umbilical hernia. ?? Procedure Note Ho[place], Jose Hay, MD - 09/02/2023 EXAMINATION: CT [facility] OVERREAD [...] findings. JOSE KC MD Stefano Livingston MD IMG CT ORDERABLES documented in this encounter Visit Diagnoses Diagnosis History of demise, not currently - Primary Encounter for preconception consultation Encounter for preconception consultation documented in this encounter Care Teams Mine Safety Engineer Relationship Specialty Start Date End Date Raven Laguna MD [facility] [address] [place] [address] PCP - General paste mixing supervisor 04/23/23 Lamine Pizarro MD [address] [place] [address] Nephrology 04/23/23 documented as of this encounter
== END 2023-10-13 08:36 | disposition home or self-care (01) ==
LOC: NFLDREF 10-31 07:59
PROVIDERS: PCP Family Medicine; Referring Provider Family Medicine; Visit Provider Internal Medicine Nephrology
DX: R80.9 Proteinuria, unspecified (principal)
CPT/HCPCS: 80069

== ENCOUNTER 2023-10-14 09:23 | Outpatient (CLI) | payer BC, MEDICAID, SELFPAY ==
--- OUTSIDE RECORDS SUMMARY | 2023-11-02 21:31 | XMS_ITS | Clinical Summary ---
Author Organization [place] Address [address] [place] [address] Care Team Providers Care Cereal Chemist Name Role Phone Lamine Pizarro MD Unavailable [phone] Raven Laguna MD Primary Care Provider [phone]- [phone] Allergies No known active allergies Medications Medication [...] Department Care Team Description 10/27/2023 Transcribe Orders [facility] Maternal Medicine [facility] [address] [facility] [address] [place] [address] Esme Byrne MD Encounter for preconception consultation (Primary Dx) 09/03/2023 Telephone [facility] Maternal Medicine [facility] [address] [place] [address] Lena Somers RN 08/28/2023 1:30 PM CDT Office Visit [facility] Maternal Medicine [facility] [address] [place], [place] [address] Amarilys Munguia, Libby Mujica MD Yamamura, Yasuko, MD History of demise, not currently (Primary Dx); Encounter for preconception consultation 08/28/2023 12:05 AM CDT - 08/28/2023 11:59 PM CDT Hospital Encounter [facility] Imaging [address] [place] [address] Stefano iLvingston MD Encounter for preconception consultation Discharge Disposition: Home or Self Care 08/28/2023 Travel 08/21/2023 Travel 08/20/2023 PRE VISIT [facility] Maternal Medicine [facility] [address] [place], [place] [address] Elvira Martin, ELAINE Consult (Preconception- Hx 23 week IUFD, CHTN, Anx/Dep, Hx PreE with SF, Hx CS x 1, Proteinuria) 08/20/2023 Orders Only [facility] Maternal Medicine [facility] [address] [place], [place] [address] Lena Livingston RN Encounter for preconception consultation (Primary Dx) 08/20/2023 Telephone [facility] Maternal Medicine [facility] [address] [place], [place] [address] Elvira Martin RN 08/20/2023 Care Coordination [facility] Maternal Medicine [facility] [address] [place], [place] [address] Lena Livingston RN 08/20/2023 Care Coordination [facility] Maternal Medicine [facility] [address] [place], [place] [address] Elvira Martin RN 08/20/2023 Telephone [facility] Maternal Medicine [facility] [address] [place] [address] Lena Livingston RN 08/15/2023 Transcribe Orders [facility] [place] [address] [place] [phone] Esme Byrne MD related condition, antepartum (Primary Dx) 08/13/2023 Medical Correspondence [facility] Info Mgmt [facility] [address] [place] [address] Scan, Non-Provider RECORD from Last 3 Months Social History Tobacco Use Types Packs/Day Years Used Date Smoking Tobacco: Former Cigarettes 0.5 2 Tobacco Cessation:Counseling Given: Not Answered Adolescent Education Answer Date Record ed Getting School Help Needed Not on file 04/22 Sex and Gender Information Value Date Recorded Sex Assigned at Female 06/19/2023 11:52 AM COMPENSATION/BENEFITS SPECIALIST Gender Identity Female 06/19/2023 11:52 AM COMPENSATION/BENEFITS SPECIALIST Sexual Orientation Straight 06/19/2023 11 :52 AM COMPENSATION/BENEFITS SPECIALIST Last Filed Vital Signs Vital Sign Reading [...] UM SPECIALTY CORE/PROT/ENDO UM Specialty Core/Prot/Endo [address] [facility] [address], [address] * hCG Quantitative (08/28/2023 3:18 PM [...] - BLOOD ORDERABL ES Performing Organization Address City/[facility]/ZIP Co de Phone Number UR LABORATORY [facility] Acute Care Lab [address] [facility], [address] [place] [phone] * Comprehensive metabolic panel (08/28/2023 3:18 PM [...] [facility] [address] [facility], [address] [place] [phone] * (ABNORMAL) CBC with Platelets (08/28/2023 3:18 PM CDT) [facility] WBC Count 9.3 4.0 - 11.0 [...] [facility] Lab [address] [facility], [address] [address] * CT [facility] Over[facility] (08/28/2023 12:05 AM [...] findings. JOSE MORROW MD Stefano Livingston MD [facility] ORDERABLES * US Imaging - HIM Scan (08/25/2023 12:00 AM CDT) Anatomical Region Laterality Modality Other 08/25/[address] [facility] [place] ORDERABLES from Last 3 Months Care Teams Cereal Chemist Relationship Specialty Start Date End Date Raven Laguna MD [address] [address] PCP - General automotive internet sales manager 04/23/23 Lamine Pizarro MD [address] [place] [address] Nephrology 04/23/23
--- OUTSIDE RECORDS SUMMARY | 2023-11-02 21:31 | XMS_ITS | Encounter Summary ---
Author Organization [place] Address [address] [place] [address] Care Team Providers Care Senior Art Director Name Role Phone Lamine Pizarro MD Unavailable [phone] Raven Laguna MD Primary Care Provider [phone] Reason for Referral * Consultation (Routine: Next available opening) - Pending Review Specialty Diagnoses / Procedures Referred By Kevin montalvo Referred To Contact Diagnoses related condition, antepartum Esme Ramirez MD [address] [place] [address] [facility] [address] [facility] [address] [place] [address] Referral ID Status Reason Start Date Expiration Date V isits Requested Visits Authorized [id number] Pending Review 08/15/2023 08/14/2024 1 1 Question Answer Preferred Location: [facility] [place] ROD[facility] 11/10/2023 Ultrasound MFM Recommendation US PROC NONE MFM Issue OTHER (enter details in Comments) - HTN, demise, hx of complications of child MFM Consultation (unrelated to Ultrasound findings): Yes Inflammatory Bowel Disease Clinic: Joint MFM and GI Consultation: No Chronic Kidney Disease: Joint MFM and Nephrology Consultation No Genetic Counseling Consultation: No fax Deputy Women's [facility] Esme Ramirez [phone] Comments There is no height or weight [...] (Latest Contact Info) Description 08/15/2023 Transcribe Orders [facility] [place] [address] [facility] [address] [place] [phone] Esme Ramirez MD [address] [place] [address] related condition, antepartum (Primary Dx) Social History Tobacco Use Types Packs/Day Years Used Date Smoking Tobacco: Never Assessed Adolescent Education Answer Date Record ed Getting School Help Needed Not on file 04/22 Sex and Gender Information Value Date Recorded Sex Assigned at Female 06/19/2023 11:52 AM RELIGIOUS STUDIES PROFESSOR Gender Identity Female 06/19/2023 11:52 AM RELIGIOUS STUDIES PROFESSOR Sexual Orientation Straight 06/19/2023 11 :52 AM RELIGIOUS STUDIES PROFESSOR documented as of this encounter Plan of Treatment Scheduled Referrals Name Type Priority Associated Diagnoses Orde r Schedule Mat Med Ctr Referral - Referral Routine: Next available opening related condition, antepartum Expected: 08/15/2023 (Approximate), Expires: 02/11/2024 documented as of this encounter Visit Diagnoses Diagnosis related condition, antepartum- Primary documented in this encounter Care Teams Senior Art Director Relationship Specialty Start Date End Date Raven Laguna MD [facility] [address] [place] [address] PCP - General banana ripening room supervisor 04/23/23 Lamine Pizarro MD [address] [place] [address] Nephrology 04/23/23 documented as of this encounter
--- OUTSIDE RECORDS SUMMARY | 2023-11-02 21:31 | XMS_ITS | Encounter Summary ---
Author Organization [place] Address [address] [place] [address]. [place] [address] Care Team Providers Care Automobile And Property Underwriter Name Role Phone Lamine Pizarro MD Unavailable [phone] Raven Laguna MD Primary Care Provider [phone] Reason for Referral * Consultation (Routine: Next available opening) - Pending Review Specialty Diagnoses / Procedures Referred By Kevin montalvo Referred To Contact Diagnoses Encounter for preconception consultation Amarilys Munguia CNM [address] [place] [address] Referral ID Status Reason Start Date Expiration Date V isits Requested Visits Authorized [id number] Pending Review 08/20/2023 08/19/2024 1 1 Question Answer MFM Consult Yes Comments MFM PAC preconception consult Encounter Details Date Type Department Care Team (Late st Contact Info) Description 08/20/2023 Orders Only [facility] [place] [address] [place] [address] Lena Livingston RN Encounter for preconception consultation (Primary Dx) Social History Tobacco Use Types Packs/Day Years Used Date Smoking Tobacco: Never Assessed Adolescent Education Answer Date Record ed Getting School Help Needed Not on file 04/22 Sex and Gender Information Value Date Recorded Sex Assigned at Female 06/19/2023 11:52 AM DENTAL HYGIENE INSTRUCTOR Gender Identity Female 06/19/2023 11:52 AM DENTAL HYGIENE INSTRUCTOR Sexual Orientation Straight 06/19/2023 11 :52 AM DENTAL HYGIENE INSTRUCTOR documented as of this encounter Plan of Treatment Scheduled Referrals Name Type Priority Associated Diagnoses Orde r Schedule MFM Office Visit Referral Routine: Next available opening Encounter for preconception consultation Expected: 09/20/2023 (Approximate), Expires: 08/19/2024 documented as of this encounter Visit Diagnoses Diagnosis Encounter for preconception consultation- Primary documented in this encounter Care Teams Automobile And Property Underwriter Relationship Specialty Start Date End Date Raven Laguna MD [address] [address] PCP - General tube making machine operator 04/23/23 Lamine Pizarro MD [address] [place] [address] Nephrology 04/23/23 documented as of this encounter
--- OUTSIDE RECORDS SUMMARY | 2023-11-02 21:31 | XMS_ITS | Encounter Summary ---
Author Organization [place] Address [address] [place] [address] Care Team Providers Care Brine Tank Operator Name Role Phone Lamine Pizarro MD Unavailable [phone] Raven Laguna MD Primary Care Provider [phone] Encounter Details Date Type Department Care Team (Latest Contact Info) Description 08/28/2023 Travel Social History Tobacco Use Types Packs/Day Years Used Date Smoking Tobacco: Former Cigarettes 0.5 2 Adolescent Education Answer Date Record ed Getting School Help Needed Not on file 04/22 Sex and Gender Information Value Date Recorded Sex Assigned at Female 06/19/2023 11:52 AM DIRECTOR TARGETED MARKETING Gender Identity Female 06/19/2023 11:52 AM DIRECTOR TARGETED MARKETING Sexual Orientation Straight 06/19/2023 11 :52 AM DIRECTOR TARGETED MARKETING documented as of this encounter Plan of Treatment Not on file documented as of this encounter Visit Diagnoses Not on filedocumented in this encounter Care Teams Brine Tank Operator Relationship Specialty Start Date End Date Raven Laguna MD [facility] [address] [place] [address] PCP - General drainage engineer 04/23/23 Lamine Pizarro MD [address] [place] [address] Nephrology 04/23/23 documented as of this encounter
--- OUTSIDE RECORDS SUMMARY | 2023-11-02 21:31 | XMS_ITS | Encounter Summary ---
Author Organization [place] Address [facility] [place] [address] Care Team Providers Care Transportation Attendant Name Role Phone Lamine Pizarro MD Unavailable [phone] Raven Laguna MD Primary Care Provider [phone] Encounter Details Date Type Department Care Team (Late st Contact Info) Description 08/20/2023 Care Coordination [facility] Maternal Medicine [address] [place] [address] Elvira Martin, RN Social History Tobacco Use Types Packs/Day Years Used Date Smoking Tobacco: Never Assessed Adolescent Education Answer Date Record ed Getting School Help Needed Not on file 04/22 Sex and Gender Information Value Date Recorded Sex Assigned at Female 06/19/2023 11:52 AM HARVEST CONTRACTOR Gender Identity Female 06/19/2023 11:52 AM HARVEST CONTRACTOR Sexual Orientation Straight 06/19/2023 11 :52 AM HARVEST CONTRACTOR documented as of this encounter Plan of Treatment Not on file documented as of this encounter Visit Diagnoses Not on filedocumented in this encounter Care Teams Transportation Attendant Relationship Specialty Start Date End Date Raven Laguna MD [facility] [address] [place] [address] PCP - General ship's carpenter 04/23/23 Lamine Pizarro MD [address] [place] [address] Nephrology 04/23/23 documented as of this encounter
--- OUTSIDE RECORDS SUMMARY | 2023-11-02 21:31 | XMS_ITS | Encounter Summary ---
Author Organization [place] Address [address] [place] [address]. [place] [address] Care Team Providers Care Or Director Name Role Phone Lamine Pizarro MD Unavailable [phone] Raven Laguna MD Primary Care Provider [phone] Reason for Visit * Diagnostic Imaging CT Scan (Routine) - Pending Review Specialty Diagnoses / Procedures Referred By Kevin montalvo Referred To Contact Radiology. Diagnoses Encounter for preconception consultation Procedures [facility] Stefano Livingston MD [address] [place] [address] Referral ID Status Reason Start Date Expiration Date V isits Requested Visits Authorized [id number] Pending Review 08/28/2023 08/27/2024 1 1 Encounter Details Date Type Department Care Team (Latest Contact Info) Description 08/28/2023 12:05 AM CDT - 08/28/2023 11:59 PM CDT Hospital Encounter [facility] Imaging [address] [place] [address] Stefano Livingston MD [address] [place] [address] Encounter for preconception consultation Discharge Disposition: Home or Self Care Social History Tobacco Use Types Packs/Day Years Used Date Smoking Tobacco: Former Cigarettes 0.5 2 Adolescent Education Answer Date Record ed Getting School Help Needed Not on file 04/22 Sex and Gender Information Value Date Recorded Sex Assigned at Female 06/19/2023 11:52 AM RETAIL LOSS PREVENTION INVESTIGATOR Gender Identity Female 06/19/2023 11:52 AM RETAIL LOSS PREVENTION INVESTIGATOR Sexual Orientation Straight 06/19/2023 11 :52 AM RETAIL LOSS PREVENTION INVESTIGATOR documented as of this encounter Medications at [...] Tiny fat-containing umbilical hernia. ?? Procedure Note Jsoe Morrow MD - 09/02/2023 EXAMINATION: [facility] [...] consultation documented in this encounter Care Teams Or Director Relationship Specialty Start Date End Date Raven Laguna MD [address] [address] PCP - General coding analyst 04/23/23 Lamine Pizarro MD [address] [place] [address] Nephrology 04/23/23 documented as of this encounter
--- OUTSIDE RECORDS SUMMARY | 2023-11-02 21:31 | XMS_ITS | Encounter Summary ---
Author Organization [place] Address [address] [place] [address]. [place] [address] Care Team Providers Care Clinical Informatics Educator Name Role Phone Lamine Pizarro MD Unavailable [phone] Raven Laguna MD Primary Care Provider [phone] Encounter Details Date Type Department Care Team (Latest Contact Info) Description 08/13/[address] [facility] Info Mgmt [facility] [address] [place] [phone] Scan, Non-Provider RECORD Social History Tobacco Use Types Packs/Day Years Used Date Smoking Tobacco: Never Assessed Adolescent Education Answer Date Record ed Getting School Help Needed Not on file 04/22 Comments Yes Sex and Gender Information Value Date Recorded Sex Assigned at Female 06/19/2023 11:52 AM MEAL TEMPERER Gender Identity Female 06/19/2023 11:52 AM MEAL TEMPERER Sexual Orientation Straight 06/19/2023 11 :52 AM MEAL TEMPERER documented as of this encounter Plan of Treatment Not on file documented as of this encounter Visit Diagnoses Not on filedocumented in this encounter Care Teams Clinical Informatics Educator Relationship Specialty Start Date End Date Raven Laguna MD [facility] [address] [place] [address] PCP - General huc 04/23/23 Lamine Pizarro MD [address] [place] [address] Nephrology 04/23/23 documented as of this encounter
--- OUTSIDE RECORDS SUMMARY | 2023-11-02 21:31 | XMS_ITS | Referral Summary ---
Author Organization [place] Address [address] [place] [address]. [place] [address] Care Team Providers Care Mortgage Loan Processing Clerk Name Role Phone Lamine Pizarro MD Unavailable Raven Laguna MD Primary Care Provider [phone] Encounters Date Type Department Care Team Description 10/27/2023 Transcribe Orders [facility] Maternal Medicine [facility] [address] [place] [phone] Esme Byrne MD Encounter for preconception consultation (Primary Dx) 09/03/2023 Telephone [facility] Maternal Medicine [facility] [address] [address] Lena Somers RN 08/28/2023 12:05 AM CDT - 08/28/2023 11:59 PM CDT Hospital Encounter [facility] Imaging [address] [place] [phone] Stefano Livingston MD Encounter for preconception consultation Discharge Disposition: Home or Self Care 08/28/2023 Travel 08/28/2023 1:30 PM CDT Office Visit [facility] Maternal Medicine [facility] [address] 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, CHTN, Anx/Dep, Hx PreE with SF, Hx CS x 1, Proteinuria) 08/20/2023 Orders Only [facility] Maternal Medicine [facility] [address] [place] [address] Lena Livingston RN Encounter for preconception consultation (Primary Dx) 08/20/2023 Telephone [facility] Maternal Medicine [facility] [address] [place], [place] [address] Elvira Martin RN 08/20/2023 Care Coordination [facility] Maternal Medicine [facility] [address] [place] [address] Lena Livingston RN 08/20/2023 Care Coordination [facility] Maternal Medicine [facility] [address] [place], [place] [address] Elvira Martin RN 08/20/2023 Telephone [facility] Maternal Medicine [facility] [address] [place], [place] [address] Lena Livingston RN 08/15/2023 Transcribe Orders [facility] Maternal Medicine [facility] [address] [place] [address] Esme Byrne MD related condition, antepartum (Primary Dx) 08/13/2023 Medical Correspondence [facility] [address] [place] [address] Scan, Non-Provider RECORD from Last [...] Sex Assigned at Female 06/19/2023 11:52 AM ASTRO TECHNICIAN Gender Identity Female 06/19/2023 11:52 AM ASTRO TECHNICIAN Sexual Orientation Straight 06/19/2023 11 :52 AM ASTRO TECHNICIAN Last Filed Vital Signs Vital Sign Reading [...] ES UM SPECIALTY CORE/PROT/ENDO Specialty Core/Prot/Endo [address] [facility], Room 3[address] * hCG Quantitative (08/28/2023 3:18 PM [...] ORDERABL ES UR LABORATORY [facility] Acute Care Lab [address] [facility], [address] [place] [id number] * Comprehensive metabolic panel (08/28/2023 3:18 PM CDT) [facility] Sodium 142 135 - 145 mmol/L 08/28/2023 [...] ORDERABL ES UR LABORATORY [facility] Acute Care Lab [address] [facility], [address] [place] [address] * (ABNORMAL) CBC with Platelets (08/28/2023 [...] ORDERABL ES UR LABORATORY [facility] Acute Care Lab [address] [facility], [address] [place] [address] * CT [facility] (08/28/2023 12:05 [...] findings. JOSE MORROW MD Stefano Livingston MD [facility] CT ORDERABLES * US Imaging - HIM Scan (08/25/2023 12:00 AM CDT) Anatomical Region Laterality Modality Other 08/25/2023 Provider Outside IMG US ORDERABLES from Last 3 Months Care Teams Mortgage Loan Processing Clerk Relationship Specialty Start Date End Date Raven Laguna MD [facility] [address] [place] [address] PCP - General impregnator and drier 04/23/23 Lamine Pizarro MD [address] [place] [address] Nephrology 04/23/23
--- OUTSIDE RECORDS SUMMARY | 2023-11-02 21:31 | XMS_ITS | Encounter Summary ---
Author Organization [place] Address [address] [place] [address] Care Team Providers Care Laser Print Operator Name Role Phone Lamine Pizarro MD Unavailable [phone] Raven Laguna MD Primary Care Provider [phone] Reason for Referral * Diagnostic Imaging CT Scan (Routine) - Pending Review Specialty Diagnoses / Procedures Referred By Contdhara t Referred To Contact Radiology. Diagnoses Encounter for preconception consultation Procedures [facility] Stefano Livingston MD [address] [place] [address] Referral ID Status Reason Start Date Expiration Date V isits Requested Visits Authorized [id number] Pending Review 08/28/2023 08/27/2024 1 1 Reason for Visit * Reason Comments Consult [id number]/ o IUFD 2nd * Consultation (Routine: Next available opening) - Pending Review Specialty Diagnoses / Procedures Referred By Kevin montalvo Referred To Contact Diagnoses Encounter for preconception consultation Amarilys Munguia CNM [address] [place] [address] Referral ID Status Reason Start Date Expiration Date V isits Requested Visits Authorized [id number] Pending Review 08/20/2023 08/19/2024 1 1 Encounter Details Date Type Department Care Team (Latest Contact Info) Description 08/28/2023 1:30 PM CDT Office Visit [facility] M[facility] Medicine [facility] [place] [address] [place], [place] [address] Amarilys Munguia CNM [address] [place] [address] Libby Kaye MD [address] [place] [address] Stefano Livingston MD [address] [place] [address] History of demise, not currently (Primary Dx); Encounter for preconception consultation Social History Tobacco Use Types Packs/Day Years Used Date Smoking Tobacco: Former Cigarettes 0.5 2 Tobacco Cessation:Counseling Given: Not Answered Adolescent Education Answer Date Record ed Getting School Help Needed Not on file 04/22 Sex and Gender Information Value Date Recorded Sex Assigned at Female 06/19/2023 11:52 AM SHIPPING TRACK SUPERVISOR Gender Identity Female 06/19/2023 11:52 AM SHIPPING TRACK SUPERVISOR Sexual Orientation Straight 06/19/2023 11 :52 AM SHIPPING TRACK SUPERVISOR documented as of this encounter Last Filed [...] Dr. [facility] for MFM preconception consultation. HPI: Darius Lange is a 32 year old here for [facility] preconception consultation due to a historyof intrauterine [...] if you have questions. Nicolás Fraser MD FOOD AND BEVERAGE ORDER CLERK PGY-2 Physician Attestation I, Stefano Livingston MD, [...] the patient (reviewing medical records/tests), in direct [id number] contact with the patient during her visit with the majority spent counseling and discussing the plan of care and documenting the visit in the electronic medical record. Please see note for details. Stefano Livingston MD documented in this encounter Nursing Notes * Lena Lane RN - 08/28/2023 1:30 PM CDT Darius was seen in [facility] Clinic today for h/o IUFD, CHTN, pre-E, proteinuria with NOB with 2nd . Dr. Livingston into see patient. Pt was sent to lab. Pt brought in disk of images and was takento film room and overread ordered. Please see [facility] consult note for recommendations. Patient was discharged [...] LAB - BLOOD ORDERABL ES UR LABORATORY [facility] Acute Care Lab [address] [facility], [address] [place] [address], [facility] * Comprehensive metabolic panel (08/28/2023 3:18 PM [...] LAB - BLOOD ORDERABL ES UR LABORATORY [facility] Acute Care Lab [address] [facility], [address] [place] [address] * (ABNORMAL) CBC with Platelets (08/28/2023 3:18 [...] LAB - BLOOD ORDERABL ES UR LABORATORY [facility] Acute Care Lab [address] [facility], [address] [place] [address] * Anti Nuclear Inderjit IgG by IFA [...] UM SPECIALTY CORE/PROT/ENDO UM Specialty Core/Prot/Endo [address] [facility], Room 3-[address] * CT [facility] Overread (08/28/2023 12:05 [...] Tiny fat-containing umbilical hernia. ?? Procedure Note [place], Jose Hay, MD - 09/02/2023 EXAMINATION: CT [...] consultation documented in this encounter Care Teams Laser Print Operator Relationship Specialty Start Date End Date Raven Laguna MD [facility] 2[facility] [address] [place] [address] PCP - General revenue manager 04/23/23 Lamine Pizarro MD [address] [place] [address] Nephrology 04/23/23 documented as of this encounter
--- OUTSIDE RECORDS SUMMARY | 2023-11-02 21:31 | XMS_ITS | Encounter Summary ---
Author Organization [place] Address [facility] [place] [address] Care Team Providers Care Vacuum Form Operator Name Role Phone Lamine Pizarro MD Unavailable [phone] Raven Laguna MD Primary Care Provider [phone] Encounter Details Date Type Department Care Team (Late st Contact Info) Description 08/20/2023 Telephone [facility] Maternal Medicine Center [address] [place] [address] Elvira Martin, RN Social History Tobacco Use Types Packs/Day Years Used Date Smoking Tobacco: Never Assessed Adolescent Education Answer Date Record ed Getting School Help Needed Not on file 04/22 Sex and Gender Information Value Date Recorded Sex Assigned at Female 06/19/2023 11:52 AM CLIENT SERVICES REPRESENTATIVE Gender Identity Female 06/19/2023 11:52 AM CLIENT SERVICES REPRESENTATIVE Sexual Orientation Straight 06/19/2023 11 :52 AM CLIENT SERVICES REPRESENTATIVE documented as of this encounter Miscellaneous Notes * Telephone Encounter - Elvira Martin RN - 08/20/2023 1:22 PM CDT Pt returning call. States her inlayer is through [place], sees them in [place]. Willing to sign SAVANNAH. Gave email address. Denies further questions at this time. Elvira Martin RN documented in this encounter Plan of Treatment Not on file documented as of this encounter Visit Diagnoses Not on filedocumented in this encounter Care Teams Vacuum Form Operator Relationship Specialty Start Date End Date Raven Laguna MD [facility] [address] [place] [address] PCP - General bobbin marker 04/23/23 Lamien Pizarro MD [address] [place] [address] Nephrology 04/23/23 documented as of this encounter
--- OUTSIDE RECORDS SUMMARY | 2023-11-02 21:31 | XMS_ITS | Encounter Summary ---
Author Organization [place] Address [facility] [place] [address] Care Team Providers Care Continuous Improvement Black Belt Name Role Phone Lamine Pizarro MD Unavailable [phone] Raven Laguna MD Primary Care Provider [phone] Encounter Details Date Type Department Care Team (Late st Contact Info) Description 08/20/2023 Care Coordination [facility] Maternal Medicine Center [address] [place] [address] Lena Livingston RN Social History Tobacco Use Types Packs/Day Years Used Date Smoking Tobacco: Never Assessed Adolescent Education Answer Date Record ed Getting School Help Needed Not on file 04/22 Sex and Gender Information Value Date Recorded Sex Assigned at Female 06/19/2023 11:52 AM UPSTREAM BIOMANUFACTURING TECHNICIAN Gender Identity Female 06/19/2023 11:52 AM UPSTREAM BIOMANUFACTURING TECHNICIAN Sexual Orientation Straight 06/19/2023 11 :52 AM UPSTREAM BIOMANUFACTURING TECHNICIAN documented as of this encounter Plan of Treatment Not on file documented as of this encounter Visit Diagnoses Not on filedocumented in this encounter Care Teams Continuous Improvement Black Belt Relationship Specialty Start Date End Date Raven Laguna MD [facility] [address] [place] [address] PCP - General tailings dam pumper 04/23/23 Lamine Pizarro MD [address] [place] [address] Nephrology 04/23/23 documented as of this encounter
--- OUTSIDE RECORDS SUMMARY | 2023-11-02 21:31 | XMS_ITS | Encounter Summary ---
Author Organization [place] Address [facility] hospital0 [facility] [place] [address] Care Team Providers Care Pad Tufter Name Role Phone Lamine Pizarro MD Unavailable [phone] Raven Laguna MD Primary Care Provider [phone] Reason for Visit * Reason Comments Consult Preconception- Hx 23 week IUFD, CHTN, Anx/Dep, Hx PreE with SF, Hx CS x 1, Proteinuria Encounter Details Date Type Department Care Team (Late st Contact Info) Description 08/20/2023 PRE VISIT [facility] Maternal Medicine [facility] [address] [place] [address] Elvira Martin, RN Consult (Preconception- Hx 23 [...] Sex Assigned at Female 06/19/2023 11:52 AM SCOW DERRICK OPERATOR Gender Identity Female 06/19/2023 11:52 AM SCOW DERRICK OPERATOR Sexual Orientation Straight 06/19/2023 11 :52 AM SCOW DERRICK OPERATOR documented as of this encounter Plan of Treatment Not on file documented as of this encounter Visit Diagnoses Not on filedocumented in this encounter Care Teams Pad Tufter Relationship Specialty Start Date End Date Raven Laguna MD [address] [address] PCP - General rn first assistant 04/23/23 Lamine Pizarro MD [address] [place] [address] Nephrology 04/23/23 documented as of this encounter
--- OUTSIDE RECORDS SUMMARY | 2023-11-02 21:31 | XMS_ITS | Encounter Summary ---
Author Organization [place] Address [address] [place] [address] Care Team Providers Care Fairground Operator Name Role Phone Lamine Pizarro MD Unavailable [phone] Raven Laguna MD Primary Care Provider [phone] Reason for Referral * Consultation (Routine: Next available opening) - Pending Review Specialty Diagnoses / Procedures Referred By Kevin montalvo Referred To Contact Diagnoses Encounter for preconception consultation Esme Ramirez MD [address] [place] [address] Maternal Med [address] [facility] [address] [place] [address] Referral ID Status Reason Start Date Expiration Date V isits Requested Visits Authorized [id number] Pending Review 10/27/2023 10/26/2024 1 1 Question Answer Preferred Location: [facility] Indication: personal hx of other complications of pregnacny, childbirth, and KARMA PORTILLO Consultation (unrelated to Ultrasound findings): Yes Inflammatory Bowel Disease Clinic: Joint MFM and GI Consultation: No Chronic Kidney Disease: Joint MFM and Nephrology Consultation No Genetic Counseling Consultation: No fax [facility] Ramirez - Comments >> Patient [...] (Latest Contact Info) Description 10/27/2023 Transcribe Orders [facility] Maternal Medicine Center [place] [address] [facility] [address] [place] [address] Esme Ramirez MD [address] [place] [address] Encounter for preconception consultation (Primary Dx) Social History Tobacco Use Types Packs/Day Years Used Date Smoking Tobacco: Former Cigarettes 0.5 2 Adolescent Education Answer Date Record ed Getting School Help Needed Not on file 04/22 Sex and Gender Information Value Date Recorded Sex Assigned at Female 06/19/2023 11:52 AM COUNTER TOP MAKER Gender Identity Female 06/19/2023 11:52 AM COUNTER TOP MAKER Sexual Orientation Straight 06/19/2023 11 :52 AM COUNTER TOP MAKER documented as of this encounter Plan of Treatment Scheduled Referrals Name Type Priority Associated Diagnoses Orde r Schedule Mat Med CTR Referral - Preconception Referral Routine: Next available opening Encounter for preconception consultation Expected: 10/27/2023 (Approximate), Expires: 04/24/2024 documented as of this encounter Visit Diagnoses Diagnosis Encounter for preconception consultation- Primary documented in this encounter Care Teams Fairground Operator Relationship Specialty Start Date End Date Raven Laguna MD [facility] [address] [place] [address] PCP - General fellmongery worker 04/23/23 Lamine Pizarro MD [address] [place], [place] [address] Nephrology 04/23/23 documented as of this encounter
--- OUTSIDE RECORDS SUMMARY | 2023-11-02 21:31 | XMS_ITS | Encounter Summary ---
Author Organization [place] Address [facility] [place] [address] Care Team Providers Care Admin Dir Name Role Phone Lamine Pizarro MD Unavailable [phone] Raven Laguna MD Primary Care Provider [phone] Encounter Details Date Type Department Care Team (Late st Contact Info) Description 09/03/2023 Telephone [facility] Maternal Medicine Center [address] [place] [address] RN Social History Tobacco Use Types Packs/Day Years Used Date Smoking Tobacco: Former Cigarettes 0.5 2 Adolescent Education Answer Date Record ed Getting School Help Needed Not on file 04/22 Sex and Gender Information Value Date Recorded Sex Assigned at Female 06/19/2023 11:52 AM VEIN ACCESS TECHNICIAN Gender Identity Female 06/19/2023 11:52 AM VEIN ACCESS TECHNICIAN Sexual Orientation Straight 06/19/2023 11 :52 AM VEIN ACCESS TECHNICIAN documented as of this encounter Miscellaneous Notes * Telephone Encounter - Lena Lane RN - 09/03/2023 3:42 PM CDT Corporate Coordinator spoke to Dr. Livingston and assembly instructions writer to call pt with normal lab results. Patient had plan discussed with Dr. Ray Garcai and is aware of MRI tomorrow. Pt is aware of plan and follow up with primary at this time. documented in this encounter Plan of Treatment Not on file documented as of this encounter Visit Diagnoses Not on filedocumented in this encounter Care Teams Admin Dir Relationship Specialty Start Date End Date Raven Laguna MD [facility] [address] [place] [address] PCP - General process technician 04/23/23 Lamine Pizarro MD [address] [place] [address] Nephrology 04/23/23 documented as of this encounter
--- OUTSIDE RECORDS SUMMARY | 2023-11-02 21:31 | XMS_ITS | Encounter Summary ---
Author Organization [place] Address [address] [place] [address] Care Team Providers Care Commercial Development Manager Name Role Phone Lamine Pizarro MD Unavailable [phone] Raven Laguna MD Primary Care Provider [phone] Encounter Details Date Type Department Care Team (Latest Contact Info) Description 08/21/2023 Travel Social History Tobacco Use Types Packs/Day Years Used Date Smoking Tobacco: Never Assessed Adolescent Education Answer Date Record ed Getting School Help Needed Not on file 04/22 Sex and Gender Information Value Date Recorded Sex Assigned at Female 06/19/2023 11:52 AM LEAD APPLIER Gender Identity Female 06/19/2023 11:52 AM LEAD APPLIER Sexual Orientation Straight 06/19/2023 11 :52 AM LEAD APPLIER documented as of this encounter Plan of Treatment Not on file documented as of this encounter Visit Diagnoses Not on filedocumented in this encounter Care Teams Commercial Development Manager Relationship Specialty Start Date End Date Raven Laguna MD [facility] [address] [place] [address] PCP - General adult live in caregiver 04/23/23 Lamine Pizarro MD [address] [place] [address] Nephrology 04/23/23 documented as of this encounter
--- OUTSIDE RECORDS SUMMARY | 2023-11-02 21:31 | XMS_ITS | Encounter Summary ---
Author Organization [place] Address [facility] [place] [address] Care Team Providers Care Heel Dipper Name Role Phone Lamine Pizarro MD Unavailable [phone] Raven Laguna MD Primary Care Provider [phone] Encounter Details Date Type Department Care Team (Late st Contact Info) Description 08/20/2023 Telephone [facility] [address] [place] [address] Lena Livingston, RN Social History Tobacco Use Types Packs/Day Years Used Date Smoking Tobacco: Never Assessed Adolescent Education Answer Date Record ed Getting School Help Needed Not on file 04/22 Sex and Gender Information Value Date Recorded Sex Assigned at Female 06/19/2023 11:52 AM LAUNDRY TECH Gender Identity Female 06/19/2023 11:52 AM LAUNDRY TECH Sexual Orientation Straight 06/19/2023 11 :52 AM LAUNDRY TECH documented as of this encounter Miscellaneous Notes * Telephone Encounter - Lena Livingston RN - 08/20/2023 12:50 PM CDT LM for patient to call M RN coordinator at [phone] regarding referral to [facility] for hx IUFD, 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 Does patient follow with nephrology? Has pt had renal biopsy? Need records for nephrology. Was patient induced with first at 36 weeks due to pree? Lena Livingston RN documented in this encounter Plan of Treatment Not on file documented as of this encounter Visit Diagnoses Not on filedocumented in this encounter Care Teams Heel Dipper Relationship Specialty Start Date End Date Raven Laguna MD [facility] [address] [place] [address] PCP - General fruit harvest worker 04/23/23 Lamine Pizarro MD [address] [place] [address] Nephrology 04/23/23 documented as of this encounter
--- OUTSIDE RECORDS SUMMARY | 2023-11-02 21:32 | XMS_ITS | Clinical Summary ---
Author Organization [facility] Address [place], [place] [address] Care Team Providers Care Pet Walker Name Role Phone Jyoti Cope DO Primary Care Provider [phone] Allergies Active Allergy Reactions Criticality Noted Date Comments Sulfa (Sulfonamide Antibiotics) *Unknown Unknown 06/27 Medications Medication Sig Dispensed Refills Start Date End Date Status Xnswootg-Eo-Him-F e-FA tab tablet Take 1 Tablet by [...] Department Care Team Description 10/10/2023 Orders Only [facility] Scanner 1 scan: (1-Ord) INCOMING RECORDS-PATHOLOGY, CONSOLIDATED PATHOLOGY, 10/10/2023 10/09/2023 Lab Requisition [facility] [phone] Esme Ramirez MD 09/16/2023 11:00 AM CDT Preop Visit [facility] [address] [facility] [place] [address] Shaqra Jyoti Renetta, DO Preoperative Exam (10/09/23 - Hysteroscopy - Dr. Ramirez - [facility] - ); Derm Problem (Moles on arms) 09/16/2023 Travel 09/10/2023 Telephone [facility] [address] [facility] [address] Zeferinoqra Jyoti Renetta, DO Prior Authorization (PA DENIED - CT ABDOMEN PELVIS W - P2P Requested) 09/04/2023 12:56 PM CDT - 09/04/2023 11:59 PM CDT Hospital Encounter [address] [address] Anatoliy Jyoti Renetta, DO Pelvic pain; History of demise, not currently ; Endometritis following delivery 09/04/2023 Travel 09/02/2023 11:30 AM CDT Ancillary Procedure [facility] [address] [facility] [place] [address] 09/02/2023 10:35 AM CDT Office Visit [address] [place] [address] Maninderra Jyoti Renetta, DO Vaginal Bleeding (Bloody discharge on/off over the last 24 hours, uterine cramping/pain); Lab (Repeat labs? 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 [address], * PATH TISSUE EXAM (10/09/2023 9:00 AM CDT) Case Report Pathology Report ?Case: [id number] ? Authorizing Provider: ??Esme Ramirez ??Collected: ? 10/09/2023 0900 ? M, MD ? Ordering Location: ? [facility] ?Received: ?10/10/2023 0855 ? Pathologist: ? Clarice Roman MD ? Specimens: ?? A) - Endometrial Curettings ? B) - Left Ovarian Biopsy ? C) - Uterus, left uterosacral ligament biopsy ? D) - Uterus, uterine serosa ? 10/14/2023 11:13 AM [facility] Final Diagnosis A) ENDOMETRIUM, [...] 2. Negative for malignancy 10/14/2023 11:13 AM [facility] Clinical Information Chronic pelvic pain and AUB 10/14/2023 11:13 AM CDT [facility] Gross Description A) Received in formalin, labeled with the patient's name and endometrial curetting, is a cloth stockinette with a 2.5 x 2.5 x 0.5 cm aggregate of pink-graham friable tissue, entirely submitted in 2 cassettes. [...] cassette. TRB 10/10/2023 10/14/2023 11:13 AM CDT [facility] Microscopic Description The final diagnosis is based on microscopic examination of appropriate sections of all specimens. 10/14/2023 11:13 AM CDT [facility] Additional Information Interpreted at [facility] - [address] [place] [address] 10/14/2023 11:13 AM T [facility] Other (Endometrial Curettings) 10/09/2023 9:00 AM CDT 10/10/2023 8:55 AM CDT Specimen (specimen) (Left Ovarian Biopsy) 10/09/2023 9:24 AM CDT 10/10/2023 8:55 AM CDT Specimen (specimen) SPECIMEN FROM UTERUS / Unknown 10/09/2023 9:26 AM CDT 10/10/2023 8:55 AM CDT Specimen (specimen) SPECIMEN FROM UTERUS / Unknown 10/09/2023 9:30 AM CDT 10/10/2023 8:55 AM CDT Esme Ramirez MD PATHOLOGY/ CYTOLOGY Performing Organization Address [facility] Co de Phone Number [facility] [address] [place] [address], [place] * CREATININE (09/16/2023 11:20 AM CDT) eGFR >90 >90 mL/min/1.7 3m2 09/16/2023 9:40 PM CDT [facility] Comment:As of 2021, eG FR is calculated by the CKD-EPI creatinine equation without race adjustment. ??eGFR can be influenced by muscle mass, exercise, and diet. ??The reported eGFR is an estimation only and is only applicable if the renal function is stable. CREATININE 0.70 0.50 - 0.90 mg/dL 09/16/2023 9:40 PM CDT [facility] Blood BLOOD SPECIMEN / Unknown Venipuncture / Unknown 09/16/2023 11:20 AM CDT 09/16/2023 11:22 AM CDT Jyoti Cope DO CHEMISTRY Performing Organization Address [facility] Co de Phone Number [facility] [address] [place] [address], [place] * MR PELVIS OVARY OR UTERUS [...] MR PELVIS OVARY OR UTERUS [facility]WO [facility] DATE: 09/04/2023 INDICATION: Pelvic Pain History [...] MR PELVIS OVARY OR UTERUS WWO LOCATION: [facility] DATE: 09/04/2023 INDICATION: Pelvic Pain History Of [...] 11.0 thou/cu mm 09/02/2023 11:22 AM CDT [facility] RED BLOOD COUNT 5.13 4.00 - 5.20 mil/cu mm 09/02/2023 11:22 AM CDT [facility] HEMOGLOBIN 14.7 12.0 - 16.0 g/dL 09/02/2023 11:22 AM CDT [facility] HEMATOCRIT 43.0 33.0 - 51.0 % 09/02/2023 11:22 AM CDT [facility] MCV 84 80 - 100 fL 09/02/2023 11:22 AM CDT [facility] MCH 28.7 26.0 - 34.0 pg 09/02/2023 11:22 AM CDT [facility] MCHC 34.2 32.0 - 36.0 g/dL 09/02/2023 11:22 AM CDT [facility] RDW 12.8 11.5 - 15.5 % 09/02/2023 11:22 AM CDT [facility] PLATELET COUNT 251 140 - 440 thou/cu mm 09/02/2023 11:22 AM CDT [facility] MPV 10.2 6.5 - 11.0 fL 09/02/2023 11:22 AM CDT [facility] % NEUT 59.6 % 09/02/2023 11:22 AM CDT [facility] % LYMPH 31.6 % 09/02/2023 11:22 AM CDT [facility] % MONO 5.6 % 09/02/2023 11:22 AM CDT [facility] % EOS 2.9 % 09/02/2023 11:22 AM CDT [facility] % BASO 0.3 % 09/02/2023 11:22 AM CDT [facility] ABSOLUTE NEUTROPHILS 4.6 1.7 - 7.0 thou/cu mm 09/02/2023 11:22 AM CDT [facility] ABSOLUTE LYMPHOCYTES 2.4 0.9 - 2.9 thou/cu mm 09/02/2023 11:22 AM CDT [facility] ABSOLUTE MONOCYTES 0.4 <0.9 thou/cu mm 09/02/2023 11:22 AM CDT [facility] ABSOLUTE EOSINOPHILS 0.2 <0.5 thou/cu mm 09/02/2023 11:22 AM CDT [facility] ABSOLUTE BASOPHILS 0.0 <0.3 thou/cu mm 09/02/2023 11:22 AM CDT [facility] Blood BLOOD SPECIMEN / Unknown Venipuncture / Unknown 09/02/2023 11:15 AM CDT 09/02/2023 11:16 AM CDT Jyoti Cope DO HEMATOLOGY [facility] [address] [place] [address], [place] [phone] * C-REACTIVE PROTEIN (09/02/2023 11:15 AM CDT) C-REACTIVE PROTEIN <0.3 <0.5 mg/dL 09/02/2023 9:50 PM CDT [facility] Blood BLOOD SPECIMEN / Unknown Venipuncture / Unknown 09/02/2023 11:15 AM CDT 09/02/2023 11:16 AM CDT Jyoti Renetta Anatoliy CHEMISTRY Performing Organization Address City/[facility]/ZIP Co de Phone Number [facility] [address] [address], [place] * UA W/ SEDIMENT EXAM REFLEXED PER CRITERIA (09/02/2023 11:03 AM CDT) COLOR Yellow Yellow Color 09/02/2023 11:11 AM CDT [facility] CLARITY Clear Clear Clarity 09/02/2023 11:11 AM CDT [facility] SPECIFIC GRAVITY,URINE 1.010 1.010, 1.015, 1.020, 1.025 09/02/2023 11:11 AM CDT [facility] PH,URINE 6.0 6.0, 7.0, 8.0, 5.5, 6.5, 7.5, 8.5 09/02/2023 11:11 AM CDT [facility] UROBILINOGEN, QUALITATIVE Normal Normal EU/dl 09/02/2023 11:11 AM CDT [facility] PROTEIN, URINE Negative Negative mg/dL 09/02/2023 11:11 AM CDT [facility] GLUCOSE, URINE Negative Negative mg/dL 09/02/2023 11:11 AM CDT [facility] KETONES,URINE Negative Negative mg/dL 09/02/2023 11:11 AM CDT [facility] BILIRUBIN,URI NE Negative Negative 09/02/2023 11:11 AM CDT [facility] OCCULT BLOOD,URINE Negative Negative 09/02/2023 11:11 AM CDT [facility] NITRITE Negative Negative 09/02/2023 11:11 AM CDT [facility] LEUKOCYTE ESTERASE Negative Negative 09/02/2023 11:11 AM CDT [facility] Urine URINE SPECIMEN / Unknown Non-Blood / Unknown 09/02/2023 11:03 AM CDT 09/02/2023 11:08 AM CDT Jyoti Cope DO URINE [facility] [address] [place] [address], * SCAN-ULTRASOUND REPORT (08/25/2023 12:00 AM CDT) Anatomical Region Laterality Modality Other Scanner OTHER * SOURCE INSPECTOR THIN PREP PAP SCREEN IMAGED (03/12/2019 3:17 PM CDT) Case Report Gynecologic Cytology Report ? Case: [id number] ? Authorizing Provider: ??Rosyln Bentley MD ? Collected: ? 03/12/2019 1517 ? Ordering Location: ? [facility] ?Received: ?03/12/2019 1518 ? Clinic ? First Screen: ?Orin Mancuso ? Specimen: ?SOURCE INSPECTOR ThinPrep Vial Screening, Cervical ? 03/23/2019 10:42 AM CDT [facility] INTERPRETATION/ RESULT NEGATIVE FOR INTRAEPITHELIAL LESION OR MALIGNANCY (NIL) (none) 03/23/2019 10:42 AM CDT [facility] IMEN ADEQUACY Satisfactory for evaluation Endocervical component present 03/23/2019 10:42 AM CDT [facility] HPV REQUEST HPV if ASCUS 03/23/2019 10:42 AM CDT [facility] Date of LMP 02/19/2019 03/23/2019 10:42 AM CDT [facility] Last Pap Date at least 5 years ago 03/23/2019 10:42 AM CDT [facility] Last Pap Result First Pap/Unknown 10:42 AM CDT [facility] Abnormal Pap or Ace Bx in last 5 years No 03/23/2019 10:42 AM CDT [facility] Menstrual Status Regular Periods 03/23/2019 10:42 AM CDT [facility] Ace Bx Done Today No 03/23/2019 10:42 AM CDT [facility] Additional Information None given 03/23/2019 10:42 AM CDT [facility] Automated Review Successful 03/23/2019 10:42 AM CDT [facility] Comment:Specimen processed s uccessfully by automated industrial ecology technician device, ThinPrep Imaging System, [employer] Note The pap test is a [...] lesions. Cytology is screened and interpreted at [facility] - [address], [place] [address] and [facility] - [address]; [place] [address] and [facility] - [address]; [place] [address] and [facility] [address]; [place] [address] 03/23/2019 10:42 AM CDT [facility] Other (Cervical) Non-Blood / Unknown 03/12/2019 3:17 PM CDT 03/12/2019 3:18 PM CDT Roslyn Bentley MD PATHOLOGY/CYTOLOGY [facility] [address] [place] [address], [place] from Last 3 Months or Most Recently Relevant to Health Maintenance Care Teams Pet Walker Relationship Specialty Start Date End Date Jyoti Cope DO [address] [place] [address] PCP - General Family Practice 01/08/23
== END 2023-10-14 09:24 | disposition home or self-care (01) ==
LOC: NFLDREF 11-02 21:29
PROVIDERS: PCP Family Medicine; Referring Provider Family Medicine; Visit Provider Internal Medicine Nephrology
DX: R80.9 Proteinuria, unspecified (principal); Z34.90 Encounter for supervision of normal pregnancy, unspecified, unspecified trimester
CPT/HCPCS: 82570; 84156

== ENCOUNTER 2024-01-19 08:51 | Emergency (ER) | payer MEDICAID, SELFPAY ==
[2024-01-19 09:05] VITALS: BP 128/84; PULSE 97; RESP 16; TEMP 36.8; O2SAT 97; BMI 29.1
--- NOTE | 2024-01-19 09:58 | ED.ALLEREA ---
HPI - Allergic Reaction General Date Seen: 01/19/24 Chief complaint: Allergic Reaction Stated complaint: Allergic Reaction Time Seen by Provider: 01/19/24 09:44 Source: patient Mode of arrival: ambulatory Limitations: no limitations History of Present Illness HPI narrative: Patient is a 33-year-old female presenting to the emergency department for an allergic reaction. She states starting yesterday she started developing hives on her bilateral upper thighs. This occurred after to she spent the night in a hotel 2 nights ago after a concert. She has been taking Benadryl since yesterday morning without any improvement in her symptoms. States she last took Benadryl at 06:30. Initially Benadryl was helping but not anymore. Went to [facility] yesterday and was discharged. Since then symptoms have been getting worse. Has been feeling nauseated since yesterday. Has had some lightheadedness but has not had any syncope feels better at this time. States she felt dizzy in the emergency department nausea this morning but that has since resolved also. Does states she feels like there is something stuck in the back of her throat but this has been going on since yesterday and has not changed. Denies chest pain, shortness of breath, fevers, chills. Is not aware of any allergies other than to cats. Related Data Home Medications ?Medication ?Instructions ?Recorded ?Confirmed ascorbic acid (vitamin C) 1,000 mg 1 g PO DAILY 04/11/23 12/03/23 tablet lorazepam 0.5 mg tablet (Ativan) 0.5 - 1 mg PO HS PRN sleep 07/29/23 12/03/23 Previous Rx's ?Medication ?Instructions ?Recorded acetaminophen 500 mg tablet 1,000 mg (2 x 500 mg) PO Q6H PRN 10/09/23 Pain #20 tabs ibuprofen 600 mg tablet 600 mg PO Q6H PRN Pain #20 tabs 10/09/23 famotidine 20 mg tablet (Pepcid) 20 mg PO DAILY #5 tabs 01/19/24 ondansetron 4 mg disintegrating 4 mg PO Q6H #20 tabs 01/19/24 tablet prednisone 20 mg tablet 40 mg (2 x 20 mg) PO DAILY #4 tabs 01/19/24 Allergies Allergy/AdvReac Type Severity Reaction Status Date / Time Sulfa (Sulfonamide Allergy Intermediate Hives Verified 10/21/23 08:13 Antibiotics) Review of Systems Status of ROS Reports: 10 or more systems reviewed and unremarkable except as noted in History and below PFSH PFSH Medical History Vaginal after , delivered, current hospitalization ?O34.219 - Maternal care for unspecified type scar from previous delivery (ICD-10) IUFD (intrauterine ) History of tobacco use ?Z87.891 - Personal history of nicotine dependence (ICD-10) Generalized anxiety disorder ?F41.1 - Generalized anxiety disorder (ICD-10) Polycystic ovary syndrome (12/25/19) ?E28.2 - Polycystic ovarian syndrome (ICD-10) Menorrhagia ?N92.0 - Excessive and frequent menstruation with regular cycle (ICD-10) History of severe pre-eclampsia (07/2021) ?Z87.59 - Personal history of other complications of , childbirth and the puerperium (ICD-10) Depression (06/03/12) ?F32.A - Depression, unspecified (ICD-10) Bunion of great toe of right foot ?M21.611 - Bunion of right foot (ICD-10) History of MRSA infection (07/27/17) ?Z86.14 - Personal history of Methicillin resistant Staphylococcus aureus infection (ICD-10) Surgical History Hx of tonsillectomy ?Z90.89 - Acquired absence of other organs (ICD-10) Status post primary low transverse section (08/16/21) ?Z98.891 - History of uterine scar from previous surgery (ICD-10) Status post laparoscopic cholecystectomy (02/14/15) ?Z90.49 - Acquired absence of other specified parts of digestive tract (ICD-10) Family History Father Parkinson disease Social History Narrative: SOCIAL? ? Education: 3 years of college? ? 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 ? Partner: Isaac? engaged works at [employer], something with logistics? Lives with: Isaac, son age 20 months? ? Pets: 2 dogs? ? Abuse: Denies past Safe at home with current partner ? ? ? Special Diet: avoids greasy food related to gall bladder removal? ? Ok with a blood transfusion: yes? ? Culture or mandaen beliefs: denies? RISK FACTORS? ? Exercise Times/wk: 3x week. elliptical? ? Depression/Anxiety: PP anxiety? ? Previous Treatments: was started on Celexa took self off did not like how she felt. Saw her family practitioner and before and after school daycare worker? Therapy: NA MALCOLM: 0 PHQ 9: 0? ? Seat Belt Use: Routinely ? Smoking: Denies past/present? ?Smoked quit about 6 years ago smoked for about 2 years, 5-10 cigarettes per day Alcohol/day: Denies while ? when not 2-3 drinks on the weekends Caffeine: 1 cup of coffee a day? ? Drug Use: Denies past/present? What is your current living situation?: I presently have a place to live Problems where you live: no known problems In the past 12 months, utilities in danger of being shut off: no In past 12 months, lack of transportation kept you from medical appts, meetings, work, or getting things needed for daily living: no In the past 12 mos, have been you worried that your food would run out before you had money to buy more?: never true In the past 12 mos, the food you bought just didn't last and you didn't have money to buy more?: never true Smoking Status: Never smoker Second hand tobacco smoke exposure: No How often do you have a drink containing alcohol: never AUDIT-C Alcohol total score: 0 Non-prescribed substance use: denies use Caffeine: No How often does anyone, including family, friends and others, physically hurt you: never How often does anyone, including family, friends and others, insult or talk down to you: never How often does anyone, including family, friends and others, threaten you with harm: never How often does anyone, including family, friends and others, scream or curse at you: never Little interest or pleasure in doing things: not at all Feeling down, depressed, or hopeless: not at all Are you using contraception or practicing any form of control: Yes Exam Narrative: Exam Narrative: Const: Well-nourished, Well-developed, in no distress Eyes: PERRL, no conjunctival injection, and symmetrical lids HENT: Atraumatic external nose and ears. Moist mucous membranes. Neck: Symmetric, trachea midline, No thyromegaly. CVS: RRR, No murmurs or gallops. Peripheral pulses 2+ and equal in all extremities RESP: Unlabored respiratory effort. Clear to auscultation bilaterally. GI: Nontender/Nondistended, No rebound or guarding. MSK:Extremities w/o deformity, Normal Active ROM Skin: Diffuse hives seen throughout her body Neuro: Normal Muscle tone, No focal neurological deficits. Psych: Awake, Alert, & Oriented x3. Appropriate mood and affect.. Const: Vital Signs, click to edit/add: Vital Signs - 24 hr 01/19/24 09:05 Temperature 98.2 F Pulse Rate [Pulse Oximeter] 97 Respiratory Rate 16 Blood Pressure [Ri ght Upper Arm] 128/84 Pulse Oximetry 97 Oxygen Delivery Me thod Room Air Course Vital Signs Vital signs: Initial Vital Signs Temperature 98.2 F 01/19/24 09:05 Temperature Source Temporal Artery Scan 01/19/24 09:05 Pulse Rate 97 01/19/24 09:05 Pulse Rhythm Regular 01/19/24 09:05 Respiratory Rate 16 01/19/24 09:05 Respiratory Effort Normal 01/19/24 09:05 Respiratory Depth Normal 01/19/24 09:05 Respiratory Pattern Normal 01/19/24 09:05 Blood Pressure 128/84 01/19/24 09:05 Blood Pressure Mean 98 01/19/24 09:05 Blood Pressure Position Sitting 01/19/24 09:05 Pulse Oximetry 97 01/19/24 09:05 Oxygen Delivery Method Room Air 01/19/24 09:05 Vital Signs Temperature 98.2 F 01/19/24 09:05 Pulse Rate 97 01/19/24 09:05 Respiratory Rate 16 01/19/24 09:05 Blood Pressure 128/84 01/19/24 09:05 Pulse Oximetry 97 01/19/24 09:05 Oxygen Delivery Method Room Air 01/19/24 09:05 Temperature 98.2 F 01/19/24 09:05 Pulse Rate 97 01/19/24 09:05 Respiratory Rate 16 01/19/24 09:05 Blood Pressure 128/84 01/19/24 09:05 Pulse Oximetry 97 01/19/24 09:05 Oxygen Delivery Method Room Air 01/19/24 09:05 Medications Administered Medications: Discontinued Medications Generic Name Dose Route Start Last Admin Trade Name Beny PRN Reason Stop Dose Admin Famotidine 20 mg 01/19/24 09:53 01/19/24 10:00 Famotidine 20 Mg Tablet PO 01/19/24 09:54 20 mg ONCE ONE Administration Ondansetron HCl 4 mg 01/19/24 09:53 01/19/24 10:00 Ondansetron Odt 4 Mg Tab PO 01/19/24 09:54 4 mg ONCE ONE Administration Prednisone 60 mg 01/19/24 09:53 01/19/24 10:00 Prednisone 20 Mg Tablet PO 01/19/24 09:54 60 mg ONCE ONE Administration MDM - Allergic Reaction MDM Narrative Medical decision making narrative: Patient is a 33 year female presenting to the emergency department for an allergic reaction. She has diffuse hives. I will give her steroids, Pepcid. Zofran given for nausea. She does not meet criteria for anaphylaxis at this time. After my arm drinker to RS after medication was given she is having the symptoms although relatively mild. She continues to have stable vital signs will be discharged. Her lower give her prescription for Pepcid, steroids, Zofran. She states she already has Benadryl at home. Discharge Plan Discharge Clinical Impression: Allergic reaction Qualifiers: Encounter type: initial encounter Qualified Code(s): T78.40XA - Allergy, unspecified, initial encounter Patient Disposition: Home, Self-Care Condition: Improved Instructions: General Allergic Reaction (ED) Additional Instructions: Take the steroids daily. He also take Pepcid daily and use Benadryl as needed. Zofran was also prescribed as needed for nausea. Symptoms should start improving the next few days but if he notice worsening symptoms or develops chest pain, shortness of breath, lightheadedness, worsening abdominal pain return for re-evaluation. Prescriptions: New ondansetron 4 mg tablet,disintegrating 4 mg PO Q6H Qty: 20 0RF prednisone 20 mg tablet 40 mg PO DAILY Qty: 4 0RF famotidine [Pepcid] 20 mg tablet 20 mg PO DAILY Qty: 5 0RF No Action ascorbic acid (vitamin C) 1,000 mg tablet 1 g PO DAILY Hold Instructions: Doctor's Order lorazepam [Ativan] 0.5 mg tablet 0.5 - 1 mg PO HS PRN (Reason: sleep) acetaminophen 500 mg Tablet 1,000 mg PO Q6H PRN (Reason: Pain) Qty: 20 0RF ibuprofen 600 mg Tablet 600 mg PO Q6H PRN (Reason: Pain) Qty: 20 0RF Follow Up/Referrals: Jyoti Cope DO [Primary Care Provider] - Stand Alone Forms: [facility] Info Instructions
[2024-01-19] MEDS: ONDANSETRON ODT 4 MG TAB PO (10:00)
[2024-01-19] MEDS: predniSONE 20 MG TABLET 60 MG PO (10:00)
[2024-01-19] MEDS: FAMOTIDINE 20 MG TABLET PO (10:00)
--- OUTSIDE RECORDS SUMMARY | 2024-01-19 10:00 | XMS_ITS | Encounter Summary ---
Author Organization [place] Address [address] [place] [address]. [place] [address] Care Team Providers Care Facilities Specialist Name Role Phone Lamine Pizarro MD Unavailable [phone] Raven Laguna MD Primary Care Provider [phone] Encounter Details Date Type Department Care Team (Late st Contact Info) Description 11/20/2023 Telephone [facility] [place] [address] [place], [place] [id number] Stefano Livingston MD [address] [place] [address] Social History Tobacco Use Types Packs/Day Years Used Date Smoking Tobacco: Former Cigarettes 0.5 2 Adolescent Education Answer Date Record ed Getting School Help Needed Not on file 04/22 Sex and Gender Information Value Date Recorded Sex Assigned at Female 06/19/2023 11:52 AM TEENAGE BABYSITTER Gender Identity Female 06/19/2023 11:52 AM TEENAGE BABYSITTER Sexual Orientation Straight 06/19/2023 11 :52 AM TEENAGE BABYSITTER documented as of this encounter Miscellaneous Notes * Telephone Encounter - Stefano Livingston MD - 11/20/2023 1:59 PM CDT I called Darius to review the results of her evaluation since her [facility] Consult here on 08/28/2023, which are summarized below: 1) EXAMINATION: CT [facility] 08/28/2023 12:05 AM [...] evaluation with pelvic MRI could be performed. 2. TECHNIQUE: CT of the abdomen and pelvis [...] of the abdominal wall at the umbilicus. Impression Normal CT of the abdomen and pelvis. Pelvic ultrasound is much more sensitive for retained productsof conception. 3. MR PELVIS OVARY OR UTERUS WWO Impression Normal pelvic MRI. No evidence of retained products of conception, arteriovenous malformation, or other explanation for symptoms. EXAM: MR PELVIS OVARY OR UTERUS WWO LOCATION: [facility] DATE: 09/04/2023 INDICATION: Pelvic Pain History Of Demise, Not Currently Endometritis Following Delivery COMPARISON: CT 09/02/2023, ultrasound 08/25/2023 TECHNIQUE: Routine MRI female pelvis protocol including T1 in/out phase, diffusion, thin section high resolution multiplane T2, and post contrast T1. Dynamic contrast-enhanced MRA abdominal aorta andbranch vessels also performed. 2D and 3D reconstructions were performed by MR technologist. CONTRAST: GADOBUTROL 1 MMOL/ML IV 10 ML VIAL: 8.5mL FINDINGS: UTERUS: Normal. No hyperenhancement, enlarged feeding uterine vessels, or dilated flow voids. ENDOMETRIUM: 5 mm in thickness. The junctional zone is within normal limits. ADNEXA: Normal. ADDITIONAL FINDINGS: No significant incidental findings. No adenopathy. Darius underwent hysteroscopy, D&C, Laparoscopy, JEROME and peritoneal biopsies on 10/09/23, which returned positive for endometriosis. She also had an incidentally noted endometrial polyp removed as well. She is doing well post- operatively, although still noting LLQ pain, which has been attributed to likely due to endometriosis. Darius also forwarded a copy of her son's autopsy results, which suggested In summary, the causeof in this fetus is most likely due to an acute umbilical cord accident and/or umbilical cordhyperspiraling. Darius and Isaac are not yet certain if they will proceed with another ,but had questions today if the results of this evaluation as noted above would impact recurrence risk of stillbirth or if any addition testing is needed. I reviewed with Darius that her imaging did not suggest uterine AVM, which we had discussed couldbe associated with pain, bleeding and can be a risk factor for FGR recurrence. As her evaluation was negative, no further uterine imaging is needed. We then reviewed that her LLQ pain has been attributed to endometriosis, which is not associated with adverse outcome, but has been associated with increased difficulty conceiving. At this point, the couple will continue discussions regarding any potential treatment options with Dr. Ray Garcia, but that this finding was not related to the loss of their son, nor was the incidentally noted endometrial polyp. If the couple to proceed with another , recommend the following US monitoring: Early US at primary OB office for confirmation and dating US at [facility] at 11-12 weeks Early anatomy US at 15-16 weeks gestation Comprehensive US at 18-20 weeks gestation Serial growth US every 4 weeks after comprehensive US Weekly BPP at 32 weeks Darius and Isaac had not further questions today and will contact us if additional questions arise. Stefano Livingston MD documented in this encounter Plan of Treatment Not on file documented as of this encounter Visit Diagnoses Not on filedocumented in this encounter Care Teams Facilities Specialist Relationship Specialty Start Date End Date Raven Laguna MD [facility] AND [address] [address] PCP - General electric meter repairer 04/23/23 Lamine Pizarro MD [address] [place] [address] Nephrology 04/23/23 documented as of this encounter
--- OUTSIDE RECORDS SUMMARY | 2024-01-19 10:00 | XMS_ITS | Clinical Summary ---
Author Organization [facility] Address [place], [place] [address] Care Team Providers Care Mat Maker Name Role Phone Jyoti Cope DO Primary Care Provider [phone] Allergies Active Allergy Reactions Criticality Noted Date Comments Sulfa (Sulfonamide Antibiotics) *Unknown Unknown 06/27 Medications Medication Sig Dispensed Refills Start Date End Date Status Ttugupbr-Pc-Jss-Fe-F A tab tablet Take 1 Tablet by mouth [...] daily. 08/27/2023 Active LORazepam (ATIVAN) 0.5 mg tabIndications:Grief associated with loss of fetus,Anxiety Take 1 Tablet (0.5 mg) by mouth at bedtime if needed for Anxiety or Sleep. 30 Tablet 10/06/2023 Active nitrofurantoin macrocrystals/monohy drate (MACROBID) 100 mg capsuleIndications:U TI (urinary tract infection), uncomplicated Take 1 Capsule (100 mg) by mouth two times daily for 5 days. 10 Capsule 12/30/2023 01/04/2024 Active Problems Problem Noted Date Diagnosed Date PCOS (polycystic ovarian syndrome) 12/25/2019 Encounters Date Type Department Care Team Description 12/30/2023 11:00 AM CDT Orders Only [facility] [address] [facility] [address] [facility] [place] [facility] 12/30/2023 7:40 AM CDT E-Visit [facility] [address] [place] [address] Jyoti Cope, DO eVisit for Urinary Tract Infection 12/30/2023 Travel 12/03/2023 Orders Only [facility] Scanner 1 scan: (1-Ord) TAREEN DERMATOLOGY, 0.5CC OF 2% LIDOCAINE W/EPINEPHRINE., 12/03/2023 from Last 3 Months Immunizations Name Administration [...] Procedure Name Priority Date/Time Associated Diagnosis Comments URINE CULTURE Add On 12/30/2023 9:10 AM CDT UTI (urinary tract infection), uncomplicated URINALYSIS MICROSCOPIC Routine 12/30/2023 9:10 AM CDT UTI symptoms UA W/ SEDIMENT EXAM REFLEXED PER CRITERIA Routine 12/30/2023 9:10 AM CDT UTI symptoms SCAN-OPERATIVE/PROCE DURE REPORT 12/03/2023 12:00 AM CDT MAINTENANCE PARTS TECHNICIAN THIN PREP PAP SCREEN IMAGED Routine 03/12/2019 3:17 PM CDT Routine general medical examination at health care facility Screening for malignant neoplasm of cervix from Last 3 Months or Most Recently Relevant to Health Maintenance Results * URINALYSIS MICROSCOPIC (12/30/2023 9:10 AM CDT) RBC None Seen 0-2, None Seen /HPF 12/30/2023 9:20 AM CDT [facility] WBC 3-5 0-2, 3-5, None Seen /HPF 12/30/2023 9:20 AM CDT [facility] BACTERIA Few None Seen, Rare, Few Bacteria/ HPF 12/30/2023 9:20 AM CDT [facility] EPITHELIAL CELLS Few None Seen, Few Epi/HPF 12/30/2023 9:20 AM CDT [facility] Urine URINE SPECIMEN / Unknown Non-Blood / Unknown 12/30/2023 9:10 AM CDT 12/30/2023 9:10 AM CDT Jyoti Mcgarryanabelle DO URINE [facility] [address] [place] [address], * (ABNORMAL) URINE CULTURE (12/30/2023 9:10 AM CDT) CULTURE RESULT(A) 01/01/2024 11:05 AM CDT [facility] CULTURE >100,000 CFU/mL Escherichia coli 01/01/2024 11:05 AM CDT [facility] Urine URINE SPECIMEN / Unknown Non-Blood / Unknown 12/30/2023 9:10 AM CDT 12/30/2023 9:10 AM CDT Narrative Organism Antibiotic Method Susceptibility Escherichia coli TRIMETHOPRIM/SULF <=06/13: S Escherichia coli AMPICILLIN <=2: S Escherichia coli CEFAZOLIN <=1: S Escherichia coli CEFAZOLIN-UC <=1: S Comment:Cefazolin-UC interpretations are for therapy of uncomplicated UTIs due to E.coli, K.pneumoniae, or P.mirablis. Cefazolin breakpoint is used as a surrogate to predict results for the oral agents - cefdinir, cefuroxime, and cephalexin, when used for therapy of uncomplicated UTIs due to E coli, K, pneumoniae, and P. mirabilis. The FDA recommends cefadroxil susceptibility can be deduced from cefazolin. Escherichia coli GENTAMICIN <=1: S Escherichia coli CEFTRIAXONE <=0.25: S Escherichia coli CEFTAZIDIME <=0.5: S Escherichia coli LEVOFLOXACIN <=0.12: S Escherichia coli CIPROFLOXACIN <=0.06: S Escherichia coli PIPERACILLIN/TAZO <=4: S Escherichia coli AMPICILLIN/SULBACTAM <=2: S Escherichia coli CEFEPIME <=0.12: S Escherichia coli MEROPENEM <=0.25: S Escherichia coli NITROFURANTOIN <=16: S Jyoti Mcgarrydenise QUIROZ MICROBIOLOGY [facility] [address] [place] [address], [place] * (ABNORMAL) UA W/ SEDIMENT EXAM REFLEXED PER CRITERIA (12/30/2023 9:10 AM CDT) COLOR Yellow Yellow Color 12/30/2023 9:19 AM CDT [facility] CLARITY Clear Clear Clarity 12/30/2023 9:19 AM CDT [facility] SPECIFIC GRAVITY,URINE 1.010 1.010, 1.015, 1.020, 1.025 12/30/2023 9:19 AM CDT [facility] PH,URINE 7.0 6.0, 7.0, 8.0, 5.5, 6.5, 7.5, 8.5 12/30/2023 9:19 AM CDT [facility] UROBILINOGEN, QUALITATIVE Normal Normal EU/dl 12/30/2023 9:19 AM CDT [facility] PROTEIN, URINE Negative Negative mg/dL 12/30/2023 9:19 AM CDT [facility] GLUCOSE, URINE Negative Negative mg/dL 12/30/2023 9:19 AM CDT [facility] KETONES,URINE Negative Negative mg/dL 12/30/2023 9:19 AM CDT [facility] BILIRUBIN,URI NE Negative Negative 12/30/2023 9:19 AM CDT [facility] OCCULT BLOOD,URINE Negative Negative 12/30/2023 9:19 AM CDT [facility] NITRITE Positive(A) Negative 12/30/2023 9:19 AM CDT [facility] LEUKOCYTE ESTERASE Trace(A) Negative 12/30/2023 9:19 AM CDT [facility] Urine URINE SPECIMEN / Unknown Non-Blood / Unknown 12/30/2023 9:10 AM CDT 12/30/2023 9:10 AM CDT Jyoti Cope DO URINE [facility] [address] [place] [address], * SCAN-OPERATIVE/PROCEDURE REPORT (12/03/2023 12:00 AM CDT) Scanner OTHER * MAINTENANCE PARTS TECHNICIAN THIN PREP PAP SCREEN IMAGED (03/12/2019 3:17 PM CDT) Case Report Gynecologic Cytology Report ? Case: [id number] ? Authorizing Provider: ??Roslyn Bentley MD ? Collected: ? 03/12/2019 1517 ? Ordering Location: ? [facility] ?Received: ?03/12/2019 1518 ? Clinic ? First Screen: ?Orin Mancuso ? Specimen: ?MAINTENANCE PARTS TECHNICIAN ThinPrep Vial Screening, Cervical ? 03/23/2019 10:42 AM CDT [facility] INTERPRETATION/ RESULT NEGATIVE FOR INTRAEPITHELIAL LESION OR MALIGNANCY (NIL) (none) 03/23/2019 10:[address] [facility] IMEN ADEQUACY Satisfactory for evaluation Endocervical component present 03/23/2019 10:42 AM T [facility] HPV REQUEST HPV if ASCUS 03/23/2019 10:[address] [facility] Date of LMP 02/19/2019 03/23/2019 10:42 AM [facility] Last Pap Date at least 5 years ago 03/23/2019 10:[address] [facility] Last Pap Result First Pap/Unknown 10:42 AM CDT [facility] Abnormal Pap or [place] Bx in last 5 years No 03/23/2019 10:[address] [facility] Menstrual Status Regular Periods 03/23/2019 10:[address] [facility] [place] Bx Done Today No 03/23/2019 10:42 AM [facility] Additional Information None given 03/23/2019 10:[address] [facility] Automated Review Successful 03/23/2019 10:42 AM [facility] Comment:Specimen processed s uccessfully by automated tank terminal gauger device, ThinPrep Imaging System, [employer] Note The pap test is a [...] lesions. Cytology is screened and interpreted at [facility] - [address], [place] [address] and [facility] - [address]; [place] [address] [facility] - [address]; [place] [address] and [facility] [address]; [place] [address] 03/23/2019 10:42 AM CDT [facility] Other (Cervical) Non-Blood / Unknown 03/12/2019 3:17 PM CDT 03/12/2019 3:18 PM CDT Roslyn Bentley MD PATHOLOGY/CYTOLOGY [facility] [address] [place] [address], [place] from Last 3 Months or Most Recently Relevant to Health Maintenance Care Teams Mat Maker Relationship Specialty Start Date End Date Jyoti Cope DO [address] [place] [address] PCP - General Family Practice 01/08/23
--- OUTSIDE RECORDS SUMMARY | 2024-01-19 10:00 | XMS_ITS | Encounter Summary ---
Author Organization [place] Address [address] [place] [address] Care Team Providers Care State Archivist Name Role Phone Lamine Pizarro MD Unavailable [phone] Raven Laguna MD Primary Care Provider [phone] Reason for Referral * Consultation (Routine: Next available opening) - Pending Review Specialty Diagnoses / Procedures Referred By Kevin montalvo Referred To Contact Diagnoses Encounter for preconception consultation Esme Ramirez MD [address] [place] [address] Maternal Med [address] [facility] [address] [place] [address] Referral ID Status Reason Start Date Expiration Date V isits Requested Visits Authorized [id number] Pending Review 10/27/2023 10/26/2024 1 1 Question Answer Preferred Location: [facility] Indication: personal hx of other complications of pregnacny, childbirth, and KARMA PORTILLO Consultation (unrelated to Ultrasound findings): Yes Inflammatory Bowel Disease Clinic: Joint MFM and GI Consultation: No Chronic Kidney Disease: Joint MFM and Nephrology Consultation No Genetic Counseling Consultation: No fax [facility] - Angela Ramirez - Comments >> [...] (Latest Contact Info) Description 10/27/2023 Transcribe Orders [facility] [place] [address] [facility] [address] [place] [address] Esme Ramirez MD [address] [place] [address] Encounter for preconception consultation (Primary Dx) Social History Tobacco Use Types Packs/Day Years Used Date Smoking Tobacco: Former Cigarettes 0.5 2 Adolescent Education Answer Date Record ed Getting School Help Needed Not on file 04/22 Sex and Gender Information Value Date Recorded Sex Assigned at Female 06/19/2023 11:52 AM SALES SUPPORT ADVISOR Gender Identity Female 06/19/2023 11:52 AM SALES SUPPORT ADVISOR Sexual Orientation Straight 06/19/2023 11 :52 AM SALES SUPPORT ADVISOR documented as of this encounter Plan of Treatment Scheduled Referrals Name Type Priority Associated Diagnoses Orde r Schedule Mat Med CTR Referral - Preconception Referral Routine: Next available opening Encounter for preconception consultation Expected: 10/27/2023 (Approximate), Expires: 04/24/2024 documented as of this encounter Visit Diagnoses Diagnosis Encounter for preconception consultation- Primary documented in this encounter Care Teams State Archivist Relationship Specialty Start Date End Date Raven Laguna MD [facility] [address] [place] [address] PCP - General lubrication supervisor 04/23/23 Lamine Pizarro MD [address] [place], [place] [address] Nephrology 04/23/23 documented as of this encounter
--- OUTSIDE RECORDS SUMMARY | 2024-01-19 10:00 | XMS_ITS | Clinical Summary ---
Author Organization [place] Address [facility] [place] [address] Care Team Providers Care Sound Cutter Name Role Phone Lamine Pizarro MD Unavailable [phone] Raven Laguna MD Primary Care Provider [phone] Allergies No known active allergies Medications Medication [...] Encounters Date Type Department Care Team Description 11/20/[address] [facility] Maternal Medicine Center [place] [address] [place] [address] Stefano Livingston MD 10/27/2023 Medical Correspondence [facility] Info Mgmt Srvcs [address] [place] [address] Scan, Non-Provider 10/27/[address] [facility] Maternal Medicine [facility] [address] [facility] [address] [place] [address] Esme Aguirre MD Encounter for preconception consultation (Primary Dx) from Last 3 Months Social History Tobacco Use Types Packs/Day Years Used Date Smoking Tobacco: Former Cigarettes 0.5 2 Tobacco Cessation:Counseling Given: Not Answered Adolescent Education Answer Date Record ed Getting School Help Needed Not on file 04/22 Sex and Gender Information Value Date Recorded Sex Assigned at Female 06/19/2023 11:52 AM HAZMAT CDL A DRIVER Gender Identity Female 06/19/2023 11:52 AM HAZMAT CDL A DRIVER Sexual Orientation Straight 06/19/2023 11 :52 AM HAZMAT CDL A DRIVER Last Filed Vital Signs Vital Sign Reading [...] 3-dose series) 12/20/2014 11/22/2014 COVID-19 Vaccine ( - 2022- season) 2023 PHQ-2 (once per calendar year) 2023 INFLUENZA VACCINE (#1) 2024 DTAP/TDAP/TD IMMUNIZATION (8 - Td or Tdap) 07/02/2031 07/02/2021, 11/22/2014, 11/01/1996, Additional history exists HEPATITIS B IMMUNIZATION Completed 993, 02/19/1993, 10/10/1992, Additional history exists MENINGITIS IMMUNIZATION Aged Out [...] age to complete this topic Care Teams Sound Cutter Relationship Specialty Start Date End Date Raven Laguna MD [facility] [address] [place] [address] PCP - General butcherette 04/23/23 Lamine Pizarro MD [address] [place] [address] Nephrology 04/23/23
--- OUTSIDE RECORDS SUMMARY | 2024-01-19 10:00 | XMS_ITS | Encounter Summary ---
Author Organization [place] Address [address] [place] [address]. [place] [address] Care Team Providers Care Certified Travel Counselor Name Role Phone Lamine Pizarro MD Unavailable [phone] Raven Laguna MD Primary Care Provider [phone] Encounter Details Date Type Department Care Team (Late st Contact Info) Description 10/27/[address] [facility] Info Mgmt Sr[facility] [address] [place] [address] Scan, Non-Provider Social History Tobacco Use Types Packs/Day Years Used Date Smoking Tobacco: Former Cigarettes 0.5 2 Adolescent Education Answer Date Record ed Getting School Help Needed Not on file 04/22 Sex and Gender Information Value Date Recorded Sex Assigned at Female 06/19/2023 11:52 AM BEER STILL RUNNER COMPOUNDER Gender Identity Female 06/19/2023 11:52 AM BEER STILL RUNNER COMPOUNDER Sexual Orientation Straight 06/19/2023 11 :52 AM BEER STILL RUNNER COMPOUNDER documented as of this encounter Plan of Treatment Not on file documented as of this encounter Visit Diagnoses Not on filedocumented in this encounter Care Teams Certified Travel Counselor Relationship Specialty Start Date End Date Raven Laguna MD [facility] [address] [place] [address] PCP - General urologist 04/23/23 Lamine Pizarro MD [address] [place] [address] Nephrology 04/23/23 documented as of this encounter
--- OUTSIDE RECORDS SUMMARY | 2024-01-19 10:00 | XMS_ITS | Referral Summary ---
Author Organization [place] Address [address] [place] [address] Care Team Providers Care Electrical Systems Engineer Name Role Phone Lamine Pizarro MD Unavailable [phone] Raven Laguna MD Primary Care Provider [phone] Encounters Date Type Department Care Team Description 11/20/2023 Telephone [facility] Maternal Medicine Center [place] [address] [place] [address] Stefano Livingston MD 10/27/2023 Medical Correspondence [facility] Info [facility] Sr[facility]cs [address] [place] [address] Scan, Non-Provider 10/27/2023 Transcribe Orders [facility] Maternal Medicine Center [place] [address] [facility] [address] [place] [address] Esme Aguirre MD Encounter for preconception consultation (Primary Dx) from Last 3 Months Allergies No known [...] Sex Assigned at Female 06/19/2023 11:52 AM A R SPECIALIST Gender Identity Female 06/19/2023 11:52 AM A R SPECIALIST Sexual Orientation Straight 06/19/2023 11 :52 AM A R SPECIALIST Last Filed Vital Signs Vital Sign [...] - Plan of Treatment Not on file Care Teams Electrical Systems Engineer Relationship Specialty Start Date End Date Raven Laguna MD [facility] AND [address] [address] PCP - General barrel bung remover and dumper 04/23/23 Lamine Pizarro MD [address] [place] [address] Nephrology 04/23/23
== END 2024-01-19 12:32 | disposition home or self-care (01) ==
PROVIDERS: Emergency Provider Student in an Organized Health Care Education/Training Program; PCP Family Medicine
DX: L50.0 Allergic urticaria (principal)
CPT/HCPCS: 99282; 99283; A9270; J7512

== ENCOUNTER 2024-01-21 01:14 | Emergency (ER) | payer MEDICAID, SELFPAY ==
[2024-01-21 01:23] VITALS: BP 151/99; PULSE 138; RESP 20; TEMP 37.4; O2SAT 98; BMI 27.4
--- OUTSIDE RECORDS SUMMARY | 2024-01-21 01:49 | XMS_ITS | Referral Summary ---
Author Organization [place] Address [address] [facility] [place] [address] Care Team Providers Care Dermatology Sales Representative Name Role Phone Lamine Pizarro MD Unavailable [phone] Raven Laguna MD Primary Care Provider [phone] Encounters Date Type Department Care Team Description 11/20/2023 Telephone [facility] [place] [address] [place] [address] Stefano Livnigston MD 10/27/2023 Medical Correspondence [facility] Info [facility] [address] [place] [address] Scan, Non-Provider 10/27/2023 Transcribe Orders [facility] [place] [address] [facility] [address] [place] [address] Esme Aguirre MD Encounter for [...] Sex Assigned at Female 06/19/2023 11:52 AM LEI SELLER Gender Identity Female 06/19/2023 11:52 AM LEI SELLER Sexual Orientation Straight 06/19/2023 11 :52 AM LEI SELLER Last Filed Vital Signs Vital Sign Reading [...] of Treatment Not on file Care Teams Dermatology Sales Representative Relationship Specialty Start Date End Date Raven Laguna MD [facility] AND [address] [address] PCP - General corporate aircraft mechanic 04/23/23 Lamine Pizarro MD [address] [place] [address] Nephrology 04/23/23
--- OUTSIDE RECORDS SUMMARY | 2024-01-21 01:49 | XMS_ITS | Clinical Summary ---
Author Organization [place] Address [facility] [place] [address] Care Team Providers Care Naturalist Name Role Phone Lamine Pizarro MD Unavailable [phone] Raven Laguna MD Primary Care Provider [phone] Allergies No known active allergies Medications Medication [...] Type Department Care Team Description 11/20/2023 Telephone [facility] Maternal Medicine Center [place] [address] [place] [address] Stefano Livingston MD 10/27/2023 Medical Correspondence [facility] Info Mgmt Srvcs [address] [place] [address] Scan, Non-Provider 10/27/2023 Transcribe Orders [facility] Maternal Medicine [facility] [address] [facility] [address] [place] [phone] Esme Aguirre MD Encounter for preconception consultation (Primary Dx) from Last 3 Months Social History Tobacco Use Types Packs/Day Years Used Date Smoking Tobacco: Former Cigarettes 0.5 2 Tobacco Cessation:Counseling Given: Not Answered Adolescent Education Answer Date Record ed Getting School Help Needed Not on file 04/22 Sex and Gender Information Value Date Recorded Sex Assigned at Female 06/19/2023 11:52 AM LOADING MACHINE OPERATOR HELPER Gender Identity Female 06/19/2023 11:52 AM LOADING MACHINE OPERATOR HELPER Sexual Orientation Straight 06/19/2023 11 :52 AM LOADING MACHINE OPERATOR HELPER Last Filed Vital Signs Vital Sign Reading [...] age to complete this topic Care Teams Naturalist Relationship Specialty Start Date End Date Raven Laguna MD [facility] [address] [place] [address] PCP - General student services advisor 04/23/23 Lamine Pizarro MD [address] [place] [address] Nephrology 04/23/23
--- OUTSIDE RECORDS SUMMARY | 2024-01-21 01:49 | XMS_ITS | Encounter Summary ---
Author Organization [place] Address [address] [place] [address]. [place] [address] Care Team Providers Care Boat And Plant Utility Supervisor Name Role Phone Lamine Pizarro MD Unavailable [phone] Raven Laguna MD Primary Care Provider [phone] Encounter Details Date Type Department Care Team (Late st Contact Info) Description 11/20/[address] [facility] Maternal Medicine Center [place] [address] [place], [place] [address] Stefano Livingston MD [address] [place] [address] [place] [address] Social History Tobacco Use Types Packs/Day Years Used Date Smoking Tobacco: Former Cigarettes 0.5 2 Adolescent Education Answer Date Record ed Getting School Help Needed Not on file 04/22 Sex and Gender Information Value Date Recorded Sex Assigned at Female 06/19/2023 11:52 AM CARD FEEDER Gender Identity Female 06/19/2023 11:52 AM CARD FEEDER Sexual Orientation Straight 06/19/2023 11 :52 AM CARD FEEDER documented as of this encounter Miscellaneous Notes * Telephone Encounter - Stefano Livingston MD - 11/20/2023 1:59 PM CDT I called [facility] to review the results of her evaluation since her [facility] Consult here on 08/28/2023, which are [...] MR PELVIS OVARY OR UTERUS WWO LOCATION: [facility] DATE: 09/04/2023 INDICATION: Pelvic Pain History Of [...] office for confirmation and dating US at [facility] at 11-12 weeks Early anatomy US [...] on filedocumented in this encounter Care Teams Boat And Plant Utility Supervisor Relationship Specialty Start Date End Date Raven Laguna MD [facility] AND [address] [address] PCP - General parts sales advisor 04/23/23 Lamine Pizarro MD [address] [place] [address] Nephrology 04/23/23 documented as of this encounter
[2024-01-21] MEDS: FAMOTIDINE 20 MG TABLET PO (01:50)
[2024-01-21] MEDS: dexAMETHasone 2 MG TABLET 6 MG PO (01:50)
[2024-01-21] MEDS: hydrOXYzine pamoate 25 MG CAPSULE 50 MG PO (01:50)
--- OUTSIDE RECORDS SUMMARY | 2024-01-21 01:50 | XMS_ITS | Encounter Summary ---
Author Organization [place] Address [address] [place] [address] Care Team Providers Care Pet Feeder Name Role Phone Lamine Pizarro MD Unavailable [phone] Raven Laguna MD Primary Care Provider [phone] Reason for Referral * Consultation (Routine: Next available opening) - Pending Review Specialty Diagnoses / Procedures Referred By Kevin montalvo Referred To Contact Diagnoses Encounter for preconception consultation Esme Ramirez MD [address] [place] [address] Maternal Med [address] [facility] [address] [place] [address] Referral ID Status Reason Start Date Expiration Date V isits Requested Visits Authorized [id number] Pending Review 10/27/2023 10/26/2024 1 1 Question Answer Preferred Location: [facility] Indication: personal hx of other complications of pregnacny, childbirth, and KARMA PORTILLO Consultation (unrelated to Ultrasound findings): Yes Inflammatory Bowel Disease Clinic: Joint MFM and GI Consultation: No Chronic Kidney Disease: Joint MFM and Nephrology Consultation No Genetic Counseling Consultation: No fax [facility] - Angela Ramirez - Comments >> [...] (Latest Contact Info) Description 10/27/2023 Transcribe Orders [facility] Maternal Medicine Center [place] [address] [facility] [address] [place] [address] Esme Ramirez MD [address] [place] [address] Encounter for preconception consultation (Primary Dx) Social History Tobacco Use Types Packs/Day Years Used Date Smoking Tobacco: Former Cigarettes 0.5 2 Adolescent Education Answer Date Record ed Getting School Help Needed Not on file 04/22 Sex and Gender Information Value Date Recorded Sex Assigned at Female 06/19/2023 11:52 AM MOSAIC FLOOR LAYER Gender Identity Female 06/19/2023 11:52 AM MOSAIC FLOOR LAYER Sexual Orientation Straight 06/19/2023 11 :52 AM MOSAIC FLOOR LAYER documented as of this encounter Plan of Treatment Scheduled Referrals Name Type Priority Associated Diagnoses Orde r Schedule Mat Med CTR Referral - Preconception Referral Routine: Next available opening Encounter for preconception consultation Expected: 10/27/2023 (Approximate), Expires: 04/24/2024 documented as of this encounter Visit Diagnoses Diagnosis Encounter for preconception consultation- Primary documented in this encounter Care Teams Pet Feeder Relationship Specialty Start Date End Date Raven Laguna MD [facility] [address] [place] [address] PCP - General assistant hairstylist 04/23/23 Lamine Pizarro MD [address] [place], [place] [address] Nephrology 04/23/23 documented as of this encounter
--- OUTSIDE RECORDS SUMMARY | 2024-01-21 01:50 | XMS_ITS | Encounter Summary ---
Author Organization [place] Address [address] [place] [address]. [place] [address] Care Team Providers Care Coal Weigher Name Role Phone Lamine Pizarro MD Unavailable [phone] Raven Laguna MD Primary Care Provider [phone] Encounter Details Date Type Department Care Team (Late st Contact Info) Description 10/27/2023 Medical Correspondence [facility] Info Mgmt Srvcs [address] [place] [address] Scan, Non-Provider Social History Tobacco Use Types Packs/Day Years Used Date Smoking Tobacco: Former Cigarettes 0.5 2 Adolescent Education Answer Date Record ed Getting School Help Needed Not on file 04/22 Sex and Gender Information Value Date Recorded Sex Assigned at Female 06/19/2023 11:52 AM COFFEE SAMPLER Gender Identity Female 06/19/2023 11:52 AM COFFEE SAMPLER Sexual Orientation Straight 06/19/2023 11 :52 AM COFFEE SAMPLER documented as of this encounter Plan of Treatment Not on file documented as of this encounter Visit Diagnoses Not on filedocumented in this encounter Care Teams Coal Weigher Relationship Specialty Start Date End Date Raven Laguna MD [facility] [address] [place] [address] PCP - General after school program teacher 04/23/23 Lamine Pizarro MD [address] [place] [address] Nephrology 04/23/23 documented as of this encounter
--- OUTSIDE RECORDS SUMMARY | 2024-01-21 01:50 | XMS_ITS | Clinical Summary ---
Author Organization [employer] [facility] Address [place], [place] [address] Care Team Providers Care Architectural Model Maker Name Role Phone Jyoti Cope DO Primary Care Provider [phone] Allergies Active Allergy Reactions Criticality Noted Date Comments Sulfa (Sulfonamide Antibiotics) *Unknown Unknown 06/27 Medications Medication Sig Dispensed Refills Start Date End Date Status Mxehiumw-Of-Ksy-Fe-F A tab tablet Take 1 Tablet by [...] Description 12/30/2023 11:00 AM CDT Orders Only [facility] [address] [facility] [address] [facility], [place] [facility] 12/30/2023 7:40 AM CDT E-Visit [facility] [address] [place] [address] Jyoti Cope, DO eVisit for Urinary Tract Infection 12/30/2023 Travel 12/03/2023 Orders Only [facility] Scanner 1 scan: (1-Ord) TAREEN [...] SCAN-OPERATIVE/PROCE DURE REPORT 12/03/2023 12:00 AM CDT [facility]PC THIN PREP PAP SCREEN IMAGED Routine 03/12/2019 3:17 PM CDT Routine general medical examination at health care facility Screening for malignant neoplasm of cervix from Last 3 Months or Most Recently Relevant to Health Maintenance Results * URINALYSIS MICROSCOPIC (12/30/2023 9:10 AM CDT) RBC None Seen 0-2, None Seen /HPF 12/30/2023 9:20 AM CDT [facility] WBC 3-5 0-2, 3-5, None Seen /HPF 12/30/2023 9:20 AM CDT [facility] BACTERIA Few None Seen, Rare, Few Bacteria/ HPF 12/30/2023 9:20 AM CDT [facility] EPITHELIAL CELLS Few None Seen, Few Epi/HPF 12/30/2023 9:20 AM CDT [facility] Urine URINE SPECIMEN / Unknown Non-Blood / Unknown 12/30/2023 9:10 AM CDT 12/30/2023 9:10 AM CDT Jyoti Mcgarryanabelle DO URINE [facility] [address] [place] [address], * (ABNORMAL) URINE CULTURE (12/30/2023 9:10 AM CDT) CULTURE RESULT(A) 01/01/2024 11:05 AM CDT [facility] CULTURE >100,000 CFU/mL Escherichia coli 01/01/2024 11:05 AM CDT [facility] Urine URINE SPECIMEN / [...] NITROFURANTOIN <=16: S Jyoti Mcgarrydenise QUIROZ MICROBIOLOGY [facility] [address] [place] [address], [place] * (ABNORMAL) UA W/ SEDIMENT EXAM REFLEXED PER CRITERIA (12/30/2023 9:10 AM CDT) COLOR Yellow Yellow Color 12/30/2023 9:19 AM CDT [facility] CLARITY Clear Clear Clarity 12/30/2023 9:19 AM CDT [facility] SPECIFIC GRAVITY,URINE 1.010 1.010, 1.015, 1.020, 1.025 12/30/2023 9:19 AM CDT [facility] PH,URINE 7.0 6.0, 7.0, 8.0, 5.5, 6.5, 7.5, 8.5 12/30/2023 9:19 AM CDT [facility] UROBILINOGEN, QUALITATIVE Normal Normal EU/dl 12/30/2023 9:19 AM CDT [facility] PROTEIN, URINE Negative Negative mg/dL 12/30/2023 9:19 AM CDT [facility] GLUCOSE, URINE Negative Negative mg/dL 12/30/2023 9:19 AM CDT [facility] KETONES,URINE Negative Negative mg/dL 12/30/2023 9:19 AM CDT [facility] BILIRUBIN,URI NE Negative Negative 12/30/2023 9:19 AM CDT [facility] OCCULT BLOOD,URINE Negative Negative 12/30/2023 9:19 AM CDT [facility] NITRITE Positive(A) Negative 12/30/2023 9:19 AM CDT [facility] LEUKOCYTE ESTERASE Trace(A) Negative 12/30/2023 9:19 AM CDT [facility] Urine URINE SPECIMEN / Unknown Non-Blood / Unknown 12/30/2023 9:10 AM CDT 12/30/2023 9:10 AM CDT Jyoti Cope DO URINE [facility] [address] [place] [address], * SCAN-OPERATIVE/PROCEDURE REPORT (12/03/2023 12:00 AM CDT) Scanner OTHER * LPC THIN PREP PAP SCREEN IMAGED (03/12/2019 3:17 PM CDT) Case Report Gynecologic Cytology Report ? Case: [id number] ? Authorizing Provider: ??Roslyn Bentley MD ? Collected: ? 03/12/2019 1517 ? Ordering Location: ? [facility] ?Received: ?03/12/2019 1518 ? Clinic ? First Screen: ?Orin Mancuso ? Specimen: ?LPC ThinPrep Vial Screening, Cervical ? 03/23/2019 10:42 AM CDT [facility] INTERPRETATION/ RESULT NEGATIVE FOR INTRAEPITHELIAL LESION OR MALIGNANCY (NIL) (none) 03/23/2019 10:42 AM [facility] IMEN ADEQUACY Satisfactory for evaluation Endocervical component present 03/23/2019 10:42 AM T [facility] HPV REQUEST HPV if ASCUS 03/23/2019 10:42 AM [facility] Date of LMP 02/19/2019 03/23/2019 10:42 AM [facility] Last Pap Date at least 5 years ago 03/23/2019 10:42 AM [facility] Last Pap Result First Pap/Unknown 10:42 AM CDT [facility] Abnormal Pap or [place] Bx in last 5 years No 03/23/2019 10:42 AM [facility] Menstrual Status Regular Periods 03/23/2019 10:42 AM [facility] [place] Bx Done Today No 03/23/2019 10:42 AM [facility] Additional Information None given 03/23/2019 10:42 AM [facility] Automated Review Successful 03/23/2019 10:42 AM [facility] Comment:Specimen processed s uccessfully by automated snow maker device, ThinPrep Imaging System, [employer] Note The pap test is a [...] lesions. Cytology is screened and interpreted at [facility] Central Laboratory - [address], [place] [address] and [facility] - [address]; [place] [address] and [facility] - [address]; [place] [address] and [facility] [address]; [place] [address] 03/23/2019 10:42 AM CDT [facility] Other (Cervical) Non-Blood / Unknown 03/12/2019 3:17 PM CDT 03/12/2019 3:18 PM CDT Roslyn Bentley MD PATHOLOGY/CYTOLOGY [facility] [address] [place] [address], [place] from Last 3 Months or Most Recently Relevant to Health Maintenance Care Teams Architectural Model Maker Relationship Specialty Start Date End Date Jyoti Cope DO [address] [place] [address] PCP - General Family Practice 01/08/23
--- NOTE | 2024-01-21 02:24 | ED.GENADULT ---
HPI - General Adult General Chief complaint: Allergic Reaction Stated complaint: Hives/swelling on face, hands Time Seen by Provider: 01/21/24 01:15 History of Present Illness HPI narrative: 31-year-old female with no prior history of anaphylaxis presents to the emergency department for evaluation of worsening hives and now that swelling. Patient was originally noticing symptoms 3 days ago was initially evaluated in a different emergency department, conservative management was recommended. She says that the hives started worsening and she came to our emergency department. Evaluation showed no signs of significant anaphylaxis and she was started on Pepcid prednisone and Benadryl. She had 2 additional doses of prednisone prescribed as well as Pepcid. She took those the night after evaluation and yesterday morning which is about 20 hours prior to arrival. She says that this evening she started getting worsening hives again and now lip swelling. No difficulty swallowing or breathing. No fever or no new topical or food exposures. Does have allergies to sulfas and cat dander but no recent exposures to these things. Did try taking Benadryl again tonight with no significant improvement. Tried a cold shower and cold soak in the bathtub but is too itchy to sleep. Has not tried any other treatments. Past medical history is notable for mainly obstetrical complications and hemorrhage back in June. Notes reviewed. Prior ED note reviewed from a couple of days ago. Nonsmoker. ROS notable for the lip swelling and skin changes as described above, otherwise denies times 12 systems. Related Data Home Medications ?Medication ?Instructions ?Recorded ?Confirmed ascorbic acid (vitamin C) 1,000 mg 1 g PO DAILY 04/11/23 12/03/23 tablet lorazepam 0.5 mg tablet (Ativan) 0.5 - 1 mg PO HS PRN sleep 07/29/23 12/03/23 Previous Rx's ?Medication ?Instructions ?Recorded acetaminophen 500 mg tablet 1,000 mg (2 x 500 mg) PO Q6H PRN 10/09/23 Pain #20 tabs ibuprofen 600 mg tablet 600 mg PO Q6H PRN Pain #20 tabs 10/09/23 famotidine 20 mg tablet (Pepcid) 20 mg PO DAILY #5 tabs 01/19/24 ondansetron 4 mg disintegrating 4 mg PO Q6H #20 tabs 01/19/24 tablet prednisone 20 mg tablet 40 mg (2 x 20 mg) PO DAILY #4 tabs 01/19/24 famotidine 20 mg tablet 20 mg PO BID 10 days #20 tabs 01/21/24 hydroxyzine pamoate 25 mg capsule 25 mg PO Q6-8H PRN #30 caps 01/21/24 (Vistaril) prednisone 20 mg tablet See Rx Instructions .Route 01/21/24 .COMPLEX 3 days #10 tabs Allergies Allergy/AdvReac Type Severity Reaction Status Date / Time Sulfa (Sulfonamide Allergy Intermediate Hives Verified 10/21/23 08:13 Antibiotics) cat dander Allergy Mild Verified 01/21/24 01:28 [facility] Medical History Vaginal after , delivered, current hospitalization ?O34.219 - Maternal care for unspecified type scar from previous delivery (ICD-10) IUFD (intrauterine ) History of tobacco use ?Z87.891 - Personal history of nicotine dependence (ICD-10) Generalized anxiety disorder ?F41.1 - Generalized anxiety disorder (ICD-10) Polycystic ovary syndrome (12/25/19) ?E28.2 - Polycystic ovarian syndrome (ICD-10) Menorrhagia ?N92.0 - Excessive and frequent menstruation with regular cycle (ICD-10) History of severe pre-eclampsia (07/2021) ?Z87.59 - Personal history of other complications of , childbirth and the pu[place] (ICD-10) Depression (06/03/12) ?F32.A - Depression, unspecified (ICD-10) Bunion of great toe of right foot ?M21.611 - Bunion of right foot (ICD-10) History of MRSA infection (07/27/17) ?Z86.14 - Personal history of Methicillin resistant Staphylococcus aureus infection (ICD-10) Surgical History Hx of tonsillectomy ?Z90.89 - Acquired absence of other organs (ICD-10) Status post primary low transverse section (08/16/21) ?Z98.891 - History of uterine scar from previous surgery (ICD-10) Status post laparoscopic cholecystectomy (02/14/15) ?Z90.49 - Acquired absence of other specified parts of digestive tract (ICD-10) Family History Father Parkinson disease Social History Narrative: SOCIAL? ? Education: 3 years of college? ? 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 ? Partner: Isaac? engaged works at [employer], something with logistics? Lives with: Isaac, son age 20 months? ? Pets: 2 dogs? ? Abuse: Denies past Safe at home with current partner ? ? ? Special Diet: avoids greasy food related to gall bladder removal? ? Ok with a blood transfusion: yes? ? Culture or yarsani beliefs: denies? RISK FACTORS? ? Exercise Times/wk: 3x week. elliptical? ? Depression/Anxiety: PP anxiety? ? Previous Treatments: was started on Celexa took self off did not like how she felt. Saw her family practitioner and child care center assistant director? Therapy: NA [facility]: 0 PHQ 9: 0? ? Seat Belt Use: Routinely ? Smoking: Denies past/present? ?Smoked quit about 6 years ago smoked for about 2 years, 5-10 cigarettes per day Alcohol/day: Denies while ? when not 2-3 drinks on the weekends Caffeine: 1 cup of coffee a day? ? Drug Use: Denies past/present? What is your current living situation?: I presently have a place to live Problems where you live: no known problems In the past 12 months, utilities in danger of being shut off: no In past 12 months, lack of transportation kept you from medical appts, meetings, work, or getting things needed for daily living: no In the past 12 mos, have been you worried that your food would run out before you had money to buy more?: never true In the past 12 mos, the food you bought just didn't last and you didn't have money to buy more?: never true Smoking Status: Never smoker Second hand tobacco smoke exposure: No How often do you have a drink containing alcohol: never AUDIT-C Alcohol total score: 0 Non-prescribed substance use: denies use Caffeine: No How often does anyone, including family, friends and others, physically hurt you: never How often does anyone, including family, friends and others, insult or talk down to you: never How often does anyone, including family, friends and others, threaten you with harm: never How often does anyone, including family, friends and others, scream or curse at you: never Little interest or pleasure in doing things: not at all Feeling down, depressed, or hopeless: not at all Are you using contraception or practicing any form of control: Yes Exam Const: Vital Signs, click to edit/add: Vital Signs - 24 hr 01/21/24 01:23 01/21/24 04:09 Temperature 99.3 F 98.7 F Pulse Rate [Right Pulse Oximeter] 138 H 102 H Respiratory Rate 20 18 Blood Pressure [Ri ght Upper Arm] 151/99 H 142/81 H Pulse Oximetry 98 Oxygen Delivery Me thod Room Air Documenting provider has reviewed patient's vital signs: yes Common normals: no apparent distress and alert General appearance: cooperative and well kempt Other: Visible lip swelling, hives on right lutheran HENMT: Common normals: head/scalp atraumatic Head and scalp: atraumatic Other: Lives with mild to moderate swelling, no tongue swelling, palate uvula or other pupil mucosa. No swelling of the eyes or eyelids. There are a few hives on the right lutheran area but no other ones on the face. Eye: Common normals: conjunctivae normal General eye: normal appearance of both eyes Conjunctiva: conjunctiva(e) normal Neck & C-Spine: Common normals: full ROM and no lymphadenopathy Chest: Common normals: inspection of chest normal Resp: Common normals: normal respiratory effort and clear to auscultation bilaterally Auscultation: clear to auscultation bilaterally Cardio: Common normals: regular rate, regular rhythm, S1 normal heart sound, S2 normal heart sound and no murmurs Rate: regular rate Rhythm: regular rhythm Heart sounds: S1 normal and S2 normal GI: Common normals: Normal to inspection, nondistended, normoactive bowel sounds present, soft to palpation and no hepatosplenomegaly Palpation: soft and no hepatosplenomegaly Extremity: Common normals: normal to inspection and normal capillary refill Neuro: Sensorium/orientation: alert Speech: speech normal Motor exam: no movement abnormalities noted Psych: Appearance: well kempt Attitude: engaged Insight: insight good Judgement: judgment good Skin: Narrative: About 10% body surface area of hives front and inner thigh, a couple on the upper back, none on the neck or around the mouth or eyes but a couple on the right lutheran and some on the shoulder area as well. Typical appearance. Course Course ED Course: Rebound hives after discontinuing prednisone, unknown trigger. Counseled patient could be environmental, often times is viral and often, we do not find a specific cause. Reactions tend to persist for a few days. I recommended a dose of dexamethasone, 50 mg of Vistaril and 20 of Pepcid. The lip swelling is concerning, will need to watch closely for further signs of airway compromise. Will monitor for several hours and plan to discharge on a longer steroid taper. Reevaluation(s) Time of Reevaluation #1: 02:49 Reevaluation #1: Re-evaluation about 1 hour after meds. Right lips are already starting to go down, left appears about the same. Still no swelling of the tongue or posterior pharynx. Still has hives on the thighs but have not spread to other areas. Starting to feel slightly better. I would like to watch her for another hour due to the facial swelling and ensure that this is going down appropriately. Medical ahead and T up her Pepcid and prolonged steroid course. Reevaluation #2: 4:00 a.m. checking is looking better. Many of the hives are now flat and paler. Lips have gone down considerably better not completely back to normal on the top lip, bottom lip does look normal. No swelling of the tongue, soft palate or uvula. Patient feeling even better than 3:00 a.m. check. We discussed continued management. I would like her on a week-long course of steroids, 10 days of famotidine and I am going to try switching her to Vistaril as she did find this a little more effective for the itch. She will continue cold compresses. She is welcome to try some topical triamcinolone ointment [id number] if desired. Try to avoid exercise, heat, itching. Alarm symptoms reviewed to come back to the ED most of which involve airway precautions. She verbalizes understanding and agreement. Vital Signs Vital signs: Initial Vital Signs Temperature 99.3 F 01/21/24 01:23 Temperature Source Temporal Artery Scan 01/21/24 01:23 Pulse Rate 138 H 01/21/24 01:23 Pulse Rhythm Regular 01/21/24 01:23 Respiratory Rate 20 01/21/24 01:23 Blood Pressure 151/99 H 01/21/24 01:23 Blood Pressure Mean 116 H 01/21/24 01:23 Blood Pressure Position Sitting 01/21/24 01:23 Pulse Oximetry 98 01/21/24 01:23 Oxygen Delivery Method Room Air 01/21/24 01:23 Vital Signs Temperature 99.3 F 01/21/24 01:23 Pulse Rate 138 H 01/21/24 01:23 Respiratory Rate 20 01/21/24 01:23 Blood Pressure 151/99 H 01/21/24 01:23 Pulse Oximetry 98 01/21/24 01:23 Oxygen Delivery Method Room Air 01/21/24 01:23 Temperature 98.7 F 01/21/24 04:09 Pulse Rate 102 H 01/21/24 04:09 Respiratory Rate 18 01/21/24 04:09 Blood Pressure 142/81 H 01/21/24 04:09 Pulse Oximetry 98 01/21/24 01:23 Oxygen Delivery Method Room Air 01/21/24 01:23 Medications Administered Medications: Discontinued Medications Generic Name Dose Route Start Last Admin Trade Name Freq PRN Reason Stop Dose Admin Dexamethasone 6 mg 01/21/24 01:36 01/21/24 01:50 Dexamethasone 2 Mg Tablet PO 01/21/24 01:37 6 mg ONCE ONE Administration Famotidine 20 mg 01/21/24 01:36 01/21/24 01:50 Famotidine 20 Mg Tablet PO 01/21/24 01:37 20 mg ONCE ONE Administration Hydroxyzine Pamoate 50 mg 01/21/24 01:36 01/21/24 01:50 Hydroxyzine Pamoate 25 Mg Capsule PO 01/21/24 01:37 50 mg ONCE ONE Administration Discharge Plan Discharge Clinical Impression: Allergic reaction Patient Disposition: Home, Self-Care Condition: Improved Instructions: General Allergic Reaction (ED) Additional Instructions: As we discussed, there is no E to test to see what is triggering this reaction which of course can be quite frustrating. Based on her story, I really do think that it probably did start with the exposure to the detergent or another agent on those bed sheets. Once the immune system is triggered, the reactions can last 5-7 days. I think that the rebound hives happened because the prednisone was stopped. For most people, this number of days is sufficient. In your case, I think we do need to use a longer course of medications. You will continue on prednisone 1 pill 2 times daily for 3 days, then once daily for 3 days, then half a pill daily for the remaining 2 days. You do not need to separate the prednisone of full 12 hours because taking it too close to bedtime may cause insomnia. Try to take it at least 3 hours before bedtime. Try to take your next dose at about noon today and then at 6:00 p.m.. Would like for you to continue on famotidine twice daily for 10 days. This is a nondrowsy antihistamine that works through a different pathway and also helps protect the stomach from the prednisone. I would like for you to try Vistaril instead of Benadryl. This is an antihistamine that I find can often work better for itch than the Benadryl. Take it up to every 6 hours for itch and hives. Like Benadryl, it often can cause some drowsiness and dry mouth. Remember that heat will make the hives worse. Try ice packs, cold compresses as needed. Exercise will definitely make things herron as well. I would recommend avoiding strenuous exercise for the next 3 days. If you have return of lip, tongue or throat swelling, please come back to the emergency department or call 911 if needed. You should follow-up with her primary care doctor to have additional testing if these episodes keep happening. Activity Level: Activity as Tolerated Discharge Diet: Regular Prescriptions: New famotidine 20 mg tablet 20 mg PO BID 10 Days Qty: 20 0RF prednisone 20 mg tablet See Rx Instructions .ROUTE .COMPLEX 3 Days Qty: 10 0RF Rx Instructions: one tablet by mouth twice daily for 3 days, then one tab daily for 3d, then half tab daily for 2d hydroxyzine pamoate [Vistaril] 25 mg capsule 25 mg PO Q6-8H PRNQty: 30 1RF No Action ascorbic acid (vitamin C) 1,000 mg tablet 1 g PO DAILY Hold Instructions: Doctor's Order lorazepam [Ativan] 0.5 mg tablet 0.5 - 1 mg PO HS PRN (Reason: sleep) acetaminophen 500 mg Tablet 1,000 mg PO Q6H PRN (Reason: Pain) Qty: 20 0RF ibuprofen 600 mg Tablet 600 mg PO Q6H PRN (Reason: Pain) Qty: 20 0RF ondansetron 4 mg tablet,disintegrating 4 mg PO Q6H Qty: 20 0RF prednisone 20 mg tablet 40 mg PO DAILY Qty: 4 0RF famotidine [Pepcid] 20 mg tablet 20 mg PO DAILY Qty: 5 0RF Follow Up/Referrals: Jyoti Cope DO [Primary Care Provider] - Stand Alone Forms: [facility] Info Instructions
[2024-01-21 04:09] VITALS: BP 142/81; PULSE 102; RESP 18; TEMP 37.1
== END 2024-01-21 04:10 | disposition home or self-care (01) ==
PROVIDERS: Emergency Provider Family Medicine; PCP Family Medicine
DX: L50.0 Allergic urticaria (principal)
CPT/HCPCS: 99283; 99284; A9270

== ENCOUNTER 2024-01-22 11:56 | Outpatient (CLI) | payer MEDICAID, SELFPAY ==
--- OUTSIDE RECORDS SUMMARY | 2024-01-22 12:04 | XMS_ITS | Referral Summary ---
Author Organization [place] Address [address] [facility] [place] [address] Care Team Providers Care Clay Dry Press Helper Name Role Phone Lamine Pizarro MD Unavailable [phone] Raven Laguna MD Primary Care Provider [phone] Encounters Date Type Department Care Team Description 11/20/2023 Telephone [facility] Maternal Medicine Center [place] [address] [place] [address] Stefano Livingston MD 10/27/2023 Medical Correspondence [facility] Info [facility] [address] [place] [address] Scan, Non-Provider 10/27/2023 Transcribe Orders [facility] Maternal Medicine Center [place] [address] [facility] [address] [place] [address] Esme Aguirre MD Encounter for [...] Sex Assigned at Female 06/19/2023 11:52 AM SKIP OPERATOR Gender Identity Female 06/19/2023 11:52 AM SKIP OPERATOR Sexual Orientation Straight 06/19/2023 11 :52 AM SKIP OPERATOR Last Filed Vital Signs Vital Sign Reading [...] of Treatment Not on file Care Teams Clay Dry Press Helper Relationship Specialty Start Date End Date Raven Laguna MD [facility] AND [address] [address] PCP - General base brander 04/23/23 Lamine Pizarro MD [address] [place] [address] Nephrology 04/23/23
--- OUTSIDE RECORDS SUMMARY | 2024-01-22 12:04 | XMS_ITS | Clinical Summary ---
Author Organization [place] Address formerly [facility] [facility] [place] [address] Care Team Providers Care Invoice Clerk Name Role Phone Lamine Pizarro MD Unavailable [phone] Raven Laguna MD Primary Care Provider [phone] Allergies No known active allergies Medications Medication [...] Type Department Care Team Description 11/20/2023 Telephone [facility] Maternal Medicine Center [place] [address] [place] [address] Stefano Livingston MD 10/27/2023 Medical Correspondence [facility] Info Mgmt Srv[facility] [address] [place] [address] Scan, Non-Provider 10/27/2023 Transcribe Orders [facility] Maternal Medicine [facility] [address] [facility] [address] [place] [id number] Esme Aguirre MD Encounter for preconception consultation (Primary Dx) from Last 3 Months Social History Tobacco Use Types Packs/Day Years Used Date Smoking Tobacco: Former Cigarettes 0.5 2 Tobacco Cessation:Counseling Given: Not Answered Adolescent Education Answer Date Record ed Getting School Help Needed Not on file 04/22 Sex and Gender Information Value Date Recorded Sex Assigned at Female 06/19/2023 11:52 AM AIRCRAFT MAINTENANCE MANAGER Gender Identity Female 06/19/2023 11:52 AM AIRCRAFT MAINTENANCE MANAGER Sexual Orientation Straight 06/19/2023 11 :52 AM AIRCRAFT MAINTENANCE MANAGER Last Filed Vital Signs Vital Sign Reading [...] age to complete this topic Care Teams Invoice Clerk Relationship Specialty Start Date End Date Raven Laguna MD [facility] [address] [place] [address] PCP - General orthotics prosthetics assistant 04/23/23 Lamine Pizarro MD [address] [place] [address] Nephrology 04/23/23
--- OUTSIDE RECORDS SUMMARY | 2024-01-22 12:05 | XMS_ITS | Encounter Summary ---
Author Organization [place] Address [address] [place] [address] Care Team Providers Care Dtp Operator Name Role Phone Lamine Pizarro MD Unavailable [phone] Raven Laguna MD Primary Care Provider [phone] Reason for Referral * Consultation (Routine: Next available opening) - Pending Review Specialty Diagnoses / Procedures Referred By Kevin montalvo Referred To Contact Diagnoses Encounter for preconception consultation Esme Ramirez MD [address] [place] [address] Maternal Med [address] [facility] [address] [place] [address] Referral ID Status Reason Start Date Expiration Date V isits Requested Visits Authorized [id number] Pending Review 10/27/2023 10/26/2024 1 1 Question Answer Preferred Location: [facility] Indication: personal hx of other complications of pregnacny, childbirth, and KARMA PORTILLO Consultation (unrelated to Ultrasound findings): Yes Inflammatory Bowel Disease Clinic: Joint MFM and GI Consultation: No Chronic Kidney Disease: Joint MFM and Nephrology Consultation No Genetic Counseling Consultation: No fax [facility] - Angela Ramirez - Comments >> Patient [...] Orders [facility] Maternal Medicine Center [place] [address] [facility] [address] [place] [address] Esme Ramirez MD [address] [place] [address] Encounter for preconception consultation (Primary Dx) Social History Tobacco Use Types Packs/Day Years Used Date Smoking Tobacco: Former Cigarettes 0.5 2 Adolescent Education Answer Date Record ed Getting School Help Needed Not on file 04/22 Sex and Gender Information Value Date Recorded Sex Assigned at Female 06/19/2023 11:52 AM AIR TRAFFIC SYSTEMS TECHNICIAN Gender Identity Female 06/19/2023 11:52 AM AIR TRAFFIC SYSTEMS TECHNICIAN Sexual Orientation Straight 06/19/2023 11 :52 AM AIR TRAFFIC SYSTEMS TECHNICIAN documented as of this encounter Plan of Treatment Scheduled Referrals Name Type Priority Associated Diagnoses Orde r Schedule Mat Med CTR Referral - Preconception Referral Routine: Next available opening Encounter for preconception consultation Expected: 10/27/2023 (Approximate), Expires: 04/24/2024 documented as of this encounter Visit Diagnoses Diagnosis Encounter for preconception consultation- Primary documented in this encounter Care Teams Dtp Operator Relationship Specialty Start Date End Date Raven Laguna MD [facility] [address] [place] [address] PCP - General squad sergeant 04/23/23 Lamine Pizarro MD [address] [place], [place] [address] Nephrology 04/23/23 documented as of this encounter
--- OUTSIDE RECORDS SUMMARY | 2024-01-22 12:05 | XMS_ITS | Encounter Summary ---
Author Organization [place] Address [address] [place] [address]. [place] [address] Care Team Providers Care Equipment Validation Engineer Name Role Phone Lamine Pizarro MD Unavailable [phone] Raven Laguna MD Primary Care Provider [phone] Encounter Details Date Type Department Care Team (Late st Contact Info) Description 11/20/2023 Telephone [facility] Maternal Medicine Center [place] [address] [place], [place] [id number] Stefano Livingston MD [address] [place] [address] Social History Tobacco Use Types Packs/Day Years Used Date Smoking Tobacco: Former Cigarettes 0.5 2 Adolescent Education Answer Date Record ed Getting School Help Needed Not on file 04/22 Sex and Gender Information Value Date Recorded Sex Assigned at Female 06/19/2023 11:52 AM VELVET STEAMER Gender Identity Female 06/19/2023 11:52 AM VELVET STEAMER Sexual Orientation Straight 06/19/2023 11 :52 AM VELVET STEAMER documented as of this encounter Miscellaneous Notes * Telephone Encounter - Stefano Livingston MD - 11/20/2023 1:59 PM CDT I called Darius to review the results of her evaluation since her [facility] Consult here on 08/28/2023, which are [...] MR PELVIS OVARY OR UTERUS WWO LOCATION: [facility] DATE: 09/04/2023 INDICATION: Pelvic Pain History Of [...] office for confirmation and dating US at [facility] at 11-12 weeks Early anatomy US [...] on filedocumented in this encounter Care Teams Equipment Validation Engineer Relationship Specialty Start Date End Date Raven Laguna MD [facility] AND [address] [address] PCP - General filler wiper 04/23/23 Lamine Pizarro MD [address] [place] [address] Nephrology 04/23/23 documented as of this encounter
--- OUTSIDE RECORDS SUMMARY | 2024-01-22 12:05 | XMS_ITS | Encounter Summary ---
Author Organization [place] Address [address] [place] [address]. [place] [address] Care Team Providers Care Strawhat Blocking Operator Name Role Phone Lamine Pizarro MD Unavailable [phone] Raven Laguna MD Primary Care Provider [phone] Encounter Details Date Type Department Care Team (Late st Contact Info) Description 10/27/2023 Medical Correspondence [facility] Info Mgmt Sr[facility] [address] [place] [address] Scan, Non-Provider Social History Tobacco Use Types Packs/Day Years Used Date Smoking Tobacco: Former Cigarettes 0.5 2 Adolescent Education Answer Date Record ed Getting School Help Needed Not on file 04/22 Sex and Gender Information Value Date Recorded Sex Assigned at Female 06/19/2023 11:52 AM BOLOGNA LACER Gender Identity Female 06/19/2023 11:52 AM BOLOGNA LACER Sexual Orientation Straight 06/19/2023 11 :52 AM BOLOGNA LACER documented as of this encounter Plan of Treatment Not on file documented as of this encounter Visit Diagnoses Not on filedocumented in this encounter Care Teams Strawhat Blocking Operator Relationship Specialty Start Date End Date Raven Laguna MD [facility] [address] [place] [address] PCP - General patient support specialist 04/23/23 Lamine Pizarro MD [address] [place] [address] Nephrology 04/23/23 documented as of this encounter
--- OUTSIDE RECORDS SUMMARY | 2024-01-22 12:05 | XMS_ITS | Clinical Summary ---
Author Organization [employer] [facility] Address [place], [place] [address] Care Team Providers Care School Bus Dispatcher Name Role Phone Jyoti Cope DO Primary Care Provider [phone] Allergies Active Allergy Reactions Criticality Noted Date Comments Sulfa (Sulfonamide Antibiotics) *Unknown Unknown 06/27 Medications Medication Sig Dispensed Refills Start Date End Date Status Iazgosmb-Yp-Ssm-Fe-F A tab tablet Take 1 Tablet by [...] Description 12/30/2023 11:00 AM CDT Orders Only [facility] [address] [facility] [address] Lab, [place] Lab 12/30/2023 7:40 AM CDT E-Visit [facility] [address] [place] [address] Jyoti Cope, DO eVisit for Urinary Tract Infection 12/30/2023 Travel 12/03/2023 Orders Only [facility] Scanner 1 scan: [...] SCAN-OPERATIVE/PROCE DURE REPORT 12/03/2023 12:00 AM CDT POWDER NIPPER THIN PREP PAP SCREEN IMAGED Routine 03/12/2019 3:17 PM CDT Routine general medical examination at health care facility Screening for malignant neoplasm of cervix from Last 3 Months or Most Recently Relevant to Health Maintenance Results * URINALYSIS MICROSCOPIC (12/30/2023 9:10 AM CDT) RBC None Seen 0-2, None Seen /HPF 12/30/2023 9:[address] [facility] WBC 3-5 0-2, 3-5, None Seen /HPF 12/30/2023 9:[address] [facility] BACTERIA Few None Seen, Rare, Few Bacteria/ HPF 12/30/2023 9:[address] [facility] EPITHELIAL CELLS Few None Seen, Few Epi/HPF 12/30/2023 9:[address] [facility] Urine URINE SPECIMEN / Unknown Non-Blood / Unknown 12/30/2023 9:10 AM CDT 12/30/2023 9:10 AM CDT Jyoti Mcgarryanabelle DO URINE [facility] [address] [place] [address], * (ABNORMAL) URINE CULTURE (12/30/2023 9:10 AM CDT) CULTURE RESULT(A) 01/01/2024 11:05 AM CDT [facility] CULTURE >100,000 CFU/mL Escherichia coli 01/01/2024 11:05 AM CDT [facility] Urine URINE SPECIMEN / [...] NITROFURANTOIN <=16: S Jyoti Mcgarrydenise QUIROZ MICROBIOLOGY [facility] [address] [place] [address], [place] * (ABNORMAL) UA W/ SEDIMENT EXAM REFLEXED PER CRITERIA (12/30/2023 9:10 AM CDT) COLOR Yellow Yellow Color 12/30/2023 9:[address] [facility] CLARITY Clear Clear Clarity 12/30/2023 9:[address] [facility] SPECIFIC GRAVITY,URINE 1.010 1.010, 1.015, 1.020, 1.025 12/30/2023 9:[address] [facility] PH,URINE 7.0 6.0, 7.0, 8.0, 5.5, 6.5, 7.5, 8.5 12/30/2023 9:[address] [facility] UROBILINOGEN, QUALITATIVE Normal Normal EU/dl 12/30/2023 9:[address] [facility] PROTEIN, URINE Negative Negative mg/dL 12/30/2023 9:[address] [facility] GLUCOSE, URINE Negative Negative mg/dL 12/30/2023 9:[address] [facility] KETONES,URINE Negative Negative mg/dL 12/30/2023 9:[address] [facility] BILIRUBIN,URI NE Negative Negative 12/30/2023 9:[address] [facility] OCCULT BLOOD,URINE Negative Negative 12/30/2023 9:[address] [facility] NITRITE Positive(A) Negative 12/30/2023 9:[address] [facility] LEUKOCYTE ESTERASE Trace(A) Negative 12/30/2023 9:[address] [facility] Urine URINE SPECIMEN / Unknown Non-Blood / Unknown 12/30/2023 9:10 AM CDT 12/30/2023 9:10 AM CDT Jyoti Cope DO URINE [facility] [address] [place] [address], * SCAN-OPERATIVE/PROCEDURE REPORT (12/03/2023 12:00 AM CDT) Scanner OTHER * POWDER NIPPER THIN PREP PAP SCREEN IMAGED (03/12/2019 3:17 PM CDT) Case Report Gynecologic Cytology Report ? Case: [id number] ? Authorizing Provider: ??Roslyn Bentley MD ? Collected: ? 03/12/2019 1517 ? Ordering Location: ? [facility] ?Received: ?03/12/2019 1518 ? Clinic ? First Screen: ?Orin Mancuso ? Specimen: ?POWDER NIPPER ThinPrep Vial Screening, Cervical ? 03/23/2019 10:42 AM CDT [facility] INTERPRETATION/ RESULT NEGATIVE FOR INTRAEPITHELIAL LESION OR MALIGNANCY (NIL) (none) 03/23/2019 10:42 AM [facility] IMEN ADEQUACY Satisfactory for evaluation Endocervical component present 03/23/2019 10:42 AM T [facility] HPV REQUEST HPV if ASCUS 03/23/2019 10:42 AM [facility] Date of LMP 02/19/2019 03/23/2019 10:42 AM [facility] Last Pap Date at least 5 years ago 03/23/2019 10:42 AM [facility] Last Pap Result First Pap/Unknown 10:42 AM CDT [facility] Abnormal Pap or [place] Bx in last 5 years No 03/23/2019 10:42 AM [facility] Menstrual Status Regular Periods 03/23/2019 10:42 AM [facility] [place] Bx Done Today No 03/23/2019 10:42 AM [facility] Additional Information None given 03/23/2019 10:42 AM [facility] Automated Review Successful 03/23/2019 10:42 AM [facility] Comment:Specimen processed s uccessfully by automated director diabetes device, ThinPrep Imaging System, [employer] Note The pap test is a [...] lesions. Cytology is screened and interpreted at [facility] Laboratory - [address], [place] [address] and [facility] - [address]; [place] [address] and [facility] - [address]; [place] [address] and [facility] [address]; [place] [address] 03/23/2019 10:42 AM CDT [facility] Other (Cervical) Non-Blood / Unknown 03/12/2019 3:17 PM CDT 03/12/2019 3:18 PM CDT Roslyn Bentley MD PATHOLOGY/CYTOLOGY [facility]-CENTRAL LABORATORY [address] [place] [address], [place] from Last 3 Months or Most Recently Relevant to Health Maintenance Care Teams School Bus Dispatcher Relationship Specialty Start Date End Date Jyoti Cope DO [address] [place] [address] PCP - General Family Practice 01/08/23
--- NOTE | 2024-01-22 12:15 | CRLHL7_ITS ---
For Patients: As a result of the Cures Act, medical imaging exams and procedure reports are released immediately into your electronic medical record. You may view this report before your referring provider. If you have questions, please contact your health care provider. INDICATION: First trimester scan, establish dates. COMPARISON: None. TECHNIQUE: Real-time marinelli-scale imaging of the pelvis was performed. FINDINGS: Sonographic imaging demonstrates a single living intrauterine gestation. The embryo demonstrates a regular cardiac rate measuring 159 beats per minute. The embryo`s crown-rump length measurement of 1.6 cm corresponds to a gestational age of 8 weeks 0 days with a sonographic due date of 09/02/2024. There is a normal-appearing yolk sac. There are no gross abnormalities noted within the embryo at this early state of development. The gestational sac has a normal appearance. There is no evidence of a perigestational hemorrhage. The amount of fluid within the sac appears appropriate for gestational age. The cervix is closed. The myometrium appears normal. The ovaries are of normal size. Corpus luteal cyst right ovary. There are no suspicious fluid collections noted in the cul-de-sac. IMPRESSION: Normal first trimester OB ultrasound exam. Gestational age calculated at 8 weeks 0 days with a sonographic due date of 09/02/2024. Dictated by Zay Drake MD @ 01/22/2024 1:35:35 PM (Electronically Signed)
== END 2024-01-22 11:57 | disposition home or self-care (01) ==
LOC: US 11:56
PROVIDERS: PCP Family Medicine; Visit Provider Obstetrics & Gynecology
DX: Z34.91 Encounter for supervision of normal pregnancy, unspecified, first trimester (principal); Z3A.08 8 weeks gestation of pregnancy
CPT/HCPCS: 76817; 93976

== ENCOUNTER 2024-01-23 12:41 | Outpatient (CLI) | payer MEDICAID, SELFPAY ==
--- OUTSIDE RECORDS SUMMARY | 2024-01-23 12:46 | XMS_ITS | Referral Summary ---
Author Organization [place] Address [address] [facility] [place] [address] Care Team Providers Care Manager Material Name Role Phone Lamine Pizarro MD Unavailable [phone] Raven Laguna MD Primary Care Provider [phone] Encounters Date Type Department Care Team Description 11/20/[address] [facility] [place] [address] [place] [address] Stefano Livingston MD 10/27/2023 Medical Correspondence [facility] [address] [place] [address] Scan, Non-Provider 10/27/[address] [facility] [place] [address] [facility] [address] [place] [address] Esme Aguirre MD Encounter for [...] Sex Assigned at Female 06/19/2023 11:52 AM DRIVER LICENSE TECHNICIAN Gender Identity Female 06/19/2023 11:52 AM DRIVER LICENSE TECHNICIAN Sexual Orientation Straight 06/19/2023 11 :52 AM DRIVER LICENSE TECHNICIAN Last Filed Vital Signs Vital Sign [...] of Treatment Not on file Care Teams Manager Material Relationship Specialty Start Date End Date Raven Laguna MD [facility] AND [address] [address] PCP - General parts salesman 04/23/23 Lamine Pizarro MD [address] [place] [address] Nephrology 04/23/23
--- OUTSIDE RECORDS SUMMARY | 2024-01-23 12:46 | XMS_ITS | Clinical Summary ---
Author Organization [place] Address [facility] [place] [address] Care Team Providers Care Cv/Cvn Cv Tsc System Operator Name Role Phone Lamine Pizarro MD Unavailable [phone] Raven Laguna MD Primary Care Provider [phone] Allergies No known active allergies Medications Medication [...] [facility] [place] [address] [place] [address] Stefano Livingston MD 10/27/2023 Medical Correspondence [facility] Info Mgmt [facility] [address] [place] [address] Scan, Non-Provider 10/27/[address] [facility] Maternal Medicine [facility] [address] [facility] [address] [place] [phone] Esme Aguirre MD Encounter for preconception consultation (Primary Dx) from Last 3 Months Social History Tobacco Use Types Packs/Day Years Used Date Smoking Tobacco: Former Cigarettes 0.5 2 Tobacco Cessation:Counseling Given: Not Answered Adolescent Education Answer Date Record ed Getting School Help Needed Not on file 04/22 Sex and Gender Information Value Date Recorded Sex Assigned at Female 06/19/2023 11:52 AM ASSISTED SALES REPRESENTATIVE Gender Identity Female 06/19/2023 11:52 AM ASSISTED SALES REPRESENTATIVE Sexual Orientation Straight 06/19/2023 11 :52 AM ASSISTED SALES REPRESENTATIVE Last Filed Vital Signs Vital Sign Reading [...] age to complete this topic Care Teams Cv/Cvn Cv Tsc System Operator Relationship Specialty Start Date End Date Raven Laguna MD [facility] [address] [place] [address] PCP - General monogram technician 04/23/23 Lamine Pizarro MD [address] [place] [address] Nephrology 04/23/23
--- OUTSIDE RECORDS SUMMARY | 2024-01-23 12:46 | XMS_ITS | Encounter Summary ---
Author Organization [facility] Address [address] [place] [address]. [place] [address] Care Team Providers Care Reporting Manager Name Role Phone Lamine Pizarro MD Unavailable Raven Laguna MD Primary Care Provider [phone] Encounter Details Date Type Department Care Team (Late st Contact Info) Description 11/20/[address] [facility] Maternal Medicine Center [place] [address] [place], [place] [address] Stefano Livingston MD [address] [place] [address] Social History Tobacco Use Types Packs/Day Years Used Date Smoking Tobacco: Former Cigarettes 0.5 2 Adolescent Education Answer Date Record ed Getting School Help Needed Not on file 04/22 Sex and Gender Information Value Date Recorded Sex Assigned at Female 06/19/2023 11:52 AM ROLL TUBE SETTER Gender Identity Female 06/19/2023 11:52 AM ROLL TUBE SETTER Sexual Orientation Straight 06/19/2023 11 :52 AM ROLL TUBE SETTER documented as of this encounter Miscellaneous Notes * Telephone Encounter - Stefano Livingston MD - 11/20/2023 1:59 PM CDT I called Darius to review the results of her evaluation since her [facility] Consult here on 08/28/2023, which are [...] MR PELVIS OVARY OR UTERUS WWO LOCATION: [facility] DATE: 09/04/2023 INDICATION: Pelvic Pain History [...] office for confirmation and dating US at [facility] at 11-12 weeks Early anatomy US [...] on filedocumented in this encounter Care Teams Reporting Manager Relationship Specialty Start Date End Date Raven Laguna MD [facility] AND [address] [address] PCP - General work order detailer 04/23/23 Lamine Pizarro MD [address] [place] [address] Nephrology 04/23/23 documented as of this encounter
--- OUTSIDE RECORDS SUMMARY | 2024-01-23 12:47 | XMS_ITS | Encounter Summary ---
Author Organization [facility] Address [address] [place] [address] Care Team Providers Care Germination Worker Name Role Phone Lamine Pizarro MD Unavailable [phone] Raven Laguna MD Primary Care Provider [phone] Reason for Referral * Consultation (Routine: Next available opening) - Pending Review Specialty Diagnoses / Procedures Referred By Kevin montalvo Referred To Contact Diagnoses Encounter for preconception consultation Esme Ramirez MD [address] [place] [address] Maternal Med [address] [facility] [address] [place] [address] Referral ID Status Reason Start Date Expiration Date V isits Requested Visits Authorized [id number] Pending Review 10/27/2023 10/26/2024 1 1 Question Answer Preferred Location: [facility] Indication: personal hx of other complications of pregnacny, childbirth, and KARMA PORTILLO Consultation (unrelated to Ultrasound findings): Yes Inflammatory Bowel Disease Clinic: Joint MFM and GI Consultation: No Chronic Kidney Disease: Joint MFM and Nephrology Consultation No Genetic Counseling Consultation: No fax [facility] - Angela Ramirez - Comments >> Patient [...] (Latest Contact Info) Description 10/27/2023 Transcribe Orders [facility] M[facility] Medicine [facility] [place] [address] [facility] [address] [place] [address] Esme Ramirez MD [address] [place] [address] Encounter for preconception consultation (Primary Dx) Social History Tobacco Use Types Packs/Day Years Used Date Smoking Tobacco: Former Cigarettes 0.5 2 Adolescent Education Answer Date Record ed Getting School Help Needed Not on file 04/22 Sex and Gender Information Value Date Recorded Sex Assigned at Female 06/19/2023 11:52 AM MANAGER MARKETING SALES Gender Identity Female 06/19/2023 11:52 AM MANAGER MARKETING SALES Sexual Orientation Straight 06/19/2023 11 :52 AM MANAGER MARKETING SALES documented as of this encounter Plan of Treatment Scheduled Referrals Name Type Priority Associated Diagnoses Orde r Schedule Mat Med CTR Referral - Preconception Referral Routine: Next available opening Encounter for preconception consultation Expected: 10/27/2023 (Approximate), Expires: 04/24/2024 documented as of this encounter Visit Diagnoses Diagnosis Encounter for preconception consultation- Primary documented in this encounter Care Teams Germination Worker Relationship Specialty Start Date End Date Raven Laguna MD [facility] [address] [place] [address] PCP - General alarm field technician 04/23/23 Lamine Pizarro MD [address] [place], [place] [address] Nephrology 04/23/23 documented as of this encounter
--- OUTSIDE RECORDS SUMMARY | 2024-01-23 12:47 | XMS_ITS | Clinical Summary ---
Author Organization [employer] [facility] Address [place], [place] [address] Care Team Providers Care Infantry Weapons Officer Name Role Phone Jyoti Cope DO Primary Care Provider [phone] Allergies Active Allergy Reactions Criticality Noted Date Comments Sulfa (Sulfonamide Antibiotics) *Unknown Unknown 06/27 Medications Medication Sig Dispensed Refills Start Date End Date Status Czjycdcq-Zg-Yoj-Fe-F A tab tablet Take 1 Tablet by [...] Description 12/30/2023 11:00 AM CDT Orders Only [facility] [address] [facility] [address] [facility], [place] Lab 12/30/2023 7:40 AM CDT E-Visit [facility] [address] [place] [place] [address] Jyoti Cope, DO eVisit for Urinary Tract Infection 12/30/2023 Travel 12/03/2023 Orders Only [facility] Scanner 1 scan: (1-Ord) [...] SCAN-OPERATIVE/PROCE DURE REPORT 12/03/2023 12:00 AM CDT CUSTOMER OPERATIONS REPRESENTATIVE THIN PREP PAP SCREEN IMAGED Routine 03/12/2019 3:17 PM CDT Routine general medical examination at health care facility Screening for malignant neoplasm of cervix from Last 3 Months or Most Recently Relevant to Health Maintenance Results * URINALYSIS MICROSCOPIC (12/30/2023 9:10 AM CDT) RBC None Seen 0-2, None Seen /HPF 12/30/2023 9:20 AM CDT [facility] WBC 3-5 0-2, 3-5, None Seen /HPF 12/30/2023 9:20 AM CDT [facility] BACTERIA Few None Seen, Rare, Few Bacteria/ HPF 12/30/2023 9:20 AM CDT [facility] EPITHELIAL CELLS Few None Seen, Few Epi/HPF 12/30/2023 9:20 AM CDT [facility] Urine URINE SPECIMEN / Unknown Non-Blood / Unknown 12/30/2023 9:10 AM CDT 12/30/2023 9:10 AM CDT Jyoti Mcgarryanabelle DO URINE [facility] [address] [place] [address], * (ABNORMAL) URINE CULTURE (12/30/2023 9:10 AM CDT) CULTURE RESULT(A) 01/01/2024 11:05 AM CDT [facility] CULTURE >100,000 CFU/mL Escherichia coli 01/01/2024 11:05 AM CDT [facility] Urine URINE SPECIMEN / [...] NITROFURANTOIN <=16: S Jyoti Mcgarrydenise QUIROZ MICROBIOLOGY [facility] [address] [place] [address], [place] * (ABNORMAL) UA W/ SEDIMENT EXAM REFLEXED PER CRITERIA (12/30/2023 9:10 AM CDT) COLOR Yellow Yellow Color 12/30/2023 9:19 AM CDT [facility] CLARITY Clear Clear Clarity 12/30/2023 9:19 AM CDT [facility] SPECIFIC GRAVITY,URINE 1.010 1.010, 1.015, 1.020, 1.025 12/30/2023 9:19 AM CDT [facility] PH,URINE 7.0 6.0, 7.0, 8.0, 5.5, 6.5, 7.5, 8.5 12/30/2023 9:19 AM CDT [facility] UROBILINOGEN, QUALITATIVE Normal Normal EU/dl 12/30/2023 9:19 AM CDT [facility] PROTEIN, URINE Negative Negative mg/dL 12/30/2023 9:19 AM CDT [facility] GLUCOSE, URINE Negative Negative mg/dL 12/30/2023 9:19 AM CDT [facility] KETONES,URINE Negative Negative mg/dL 12/30/2023 9:19 AM CDT [facility] BILIRUBIN,URI NE Negative Negative 12/30/2023 9:19 AM CDT [facility] OCCULT BLOOD,URINE Negative Negative 12/30/2023 9:19 AM CDT [facility] NITRITE Positive(A) Negative 12/30/2023 9:19 AM CDT [facility] LEUKOCYTE ESTERASE Trace(A) Negative 12/30/2023 9:19 AM CDT [facility] Urine URINE SPECIMEN / Unknown Non-Blood / Unknown 12/30/2023 9:10 AM CDT 12/30/2023 9:10 AM CDT Jyoti Cope DO URINE [facility] [address] [place] [address], * SCAN-OPERATIVE/PROCEDURE REPORT (12/03/2023 12:00 AM CDT) Scanner OTHER * CUSTOMER OPERATIONS REPRESENTATIVE THIN PREP PAP SCREEN IMAGED (03/12/2019 3:17 PM CDT) Case Report Gynecologic Cytology Report ? Case: [id number] ? Authorizing Provider: ??Roslyn Bentley MD ? Collected: ? 03/12/2019 1517 ? Ordering Location: ? [facility] ?Received: ?03/12/2019 1518 ? Clinic ? First Screen: ?Orin Mancuso ? Specimen: ?CUSTOMER OPERATIONS REPRESENTATIVE ThinPrep Vial Screening, Cervical ? 03/23/2019 10:42 AM CDT [facility] INTERPRETATION/ RESULT NEGATIVE FOR INTRAEPITHELIAL LESION OR MALIGNANCY (NIL) (none) 03/23/2019 10:42 AM [facility] IMEN ADEQUACY Satisfactory for evaluation Endocervical component present 03/23/2019 10:42 AM T [facility] HPV REQUEST HPV if ASCUS 03/23/2019 10:42 AM [facility] Date of LMP 02/19/2019 03/23/2019 10:42 AM [facility] LAB[facility] Last Pap Date at least 5 years ago 03/23/2019 10:42 AM [facility] Last Pap Result First Pap/Unknown 10:42 AM CDT [facility] ENTRAL LABORATORY Abnormal Pap or Spring Bx in last 5 years No 03/23/2019 10:42 AM [facility] Menstrual Status Regular Periods 03/23/2019 10:42 AM [facility] Spring Bx Done Today No 03/23/2019 10:42 AM [facility] Additional Information None given 03/23/2019 10:42 AM [facility] Automated Review Successful 03/23/2019 10:42 AM [facility] Comment:Specimen processed s uccessfully by automated timber poisoner device, ThinPrep Imaging System, [employer] Note The pap test is a [...] lesions. Cytology is screened and interpreted at [facility], Central Laboratory - [address], [place] [address] and [facility] - [address]; [place] [address] and [facility] - [address]; [place] [address] and [facility] [address]; [place] [address] 03/23/2019 10:42 AM CDT [facility] Other (Cervical) Non-Blood / Unknown 03/12/2019 3:17 PM CDT 03/12/2019 3:18 PM CDT Roslyn Bentley MD PATHOLOGY/CYTOLOGY [facility]-CENTRAL LABORATORY [address] [place] [address], [place] from Last 3 Months or Most Recently Relevant to Health Maintenance Care Teams Infantry Weapons Officer Relationship Specialty Start Date End Date Jyoti Cope DO [address] [place] [address] PCP - General Family Practice 01/08/23
--- OUTSIDE RECORDS SUMMARY | 2024-01-23 12:47 | XMS_ITS | Encounter Summary ---
Author Organization [facility] Address [address] [place] [address]. [place] [address] Care Team Providers Care Household Refrigerator Mechanic Name Role Phone Lamine Pizarro MD Unavailable [phone] Raven Laguna MD Primary Care Provider [phone] Encounter Details Date Type Department Care Team (Late st Contact Info) Description 10/27/2023 Medical Correspondence [facility] Mgmt [facility] [address] [place] [address] Scan, Non-Provider Social History Tobacco Use Types Packs/Day Years Used Date Smoking Tobacco: Former Cigarettes 0.5 2 Adolescent Education Answer Date Record ed Getting School Help Needed Not on file 04/22 Sex and Gender Information Value Date Recorded Sex Assigned at Female 06/19/2023 11:52 AM UTILITY LOCATE TECHNICIAN Gender Identity Female 06/19/2023 11:52 AM UTILITY LOCATE TECHNICIAN Sexual Orientation Straight 06/19/2023 11 :52 AM UTILITY LOCATE TECHNICIAN documented as of this encounter Plan of Treatment Not on file documented as of this encounter Visit Diagnoses Not on filedocumented in this encounter Care Teams Household Refrigerator Mechanic Relationship Specialty Start Date End Date Raven Laguna MD [facility] [address] [place] [address] PCP - General police captain senior 04/23/23 Lamine Pizarro MD [address] [place] [address] Nephrology 04/23/23 documented as of this encounter
== END 2024-01-23 12:42 | disposition home or self-care (01) ==
PROVIDERS: PCP Family Medicine; Visit Provider Obstetrics & Gynecology
DX: Z34.91 Encounter for supervision of normal pregnancy, unspecified, first trimester (principal); Z3A.08 8 weeks gestation of pregnancy
CPT/HCPCS: 82565; 82570; 84156; 84450; 84460; 84520; 86592; 86703; 86704; 86706; 86762; 86787; 86803; 86850; 86900; 86901; 87086; 87340

== ENCOUNTER 2024-01-27 08:54 | Outpatient (CLI) | payer MEDICAID, SELFPAY ==
--- OUTSIDE RECORDS SUMMARY | 2024-01-29 03:01 | XMS_ITS | Clinical Summary ---
Author Organization [facility] Address [address] [place] [address]. [place] [address] Care Team Providers Care Flower Cheniller Name Role Phone Lamine Pizarro MD Unavailable [phone] Raven Laguna MD Primary Care Provider [phone] Allergies No known active allergies Medications Medication [...] Encounters Date Type Department Care Team Description 01/28/[address] [facility] M[facility] Medicine [facility] [address] [facility] [address] [place] [address] Esme Stanford MD related condition, antepartum (Primary Dx) 11/20/[address] [facility] Maternal Medicine [facility] [address] [place] [address] Stefano Livingston MD from Last 3 Months Social History Tobacco Use Types Packs/Day Years Used Date Smoking Tobacco: Former Cigarettes 0.5 2 Tobacco Cessation:Counseling Given: Not Answered Adolescent Education Answer Date Record ed Getting School Help Needed Not on file 04/22 Sex and Gender Information Value Date Recorded Sex Assigned at Female 06/19/2023 11:52 AM CHARGE ACCOUNT AUTHORIZER Gender Identity Female 06/19/2023 11:52 AM CHARGE ACCOUNT AUTHORIZER Sexual Orientation Straight 06/19/2023 11 :52 AM CHARGE ACCOUNT AUTHORIZER Last Filed Vital Signs Vital Sign Reading Time Taken Comments Blood Pressure 142/83 08/28/2023 3:51 PM CDT Pulse 98 08/28/2023 3:51 PM CDT Temperature - - Respiratory Rate 20 08/28/2023 3:51 PM CDT Oxygen Saturation 100% 08/28/2023 3:51 PM CDT room air Inhaled Oxygen Concentration - - Weight - - Height - - Body Mass Index - - Plan of Treatment Upcoming Encounters Date Type Department Care Team (Late st Contact Info) Description 03/10/2024 10:15 AM CDT Office Visit [facility] Maternal Medicine [facility] [address] [place] [phone] Esme Ramirez MD [address] [place], [place] [phone] 03/10/2024 11:[address] [facility] Maternal Medicine [facility] [address] [place] [phone] Esme Ramirez MD [address] [place], [place] [address] 03/10/2024 11:30 AM CDT Office Visit [facility] Maternal Medicine [facility] [address] [place] [phone] Esme Ramirez MD [address] [place] [address] Health Maintenance Due Date Last Done Comments ADVANCE CARE PLANNING 1991 ANNUAL REVIEW OF HM ORDERS 1991 YEARLY PREVENTIVE VISIT 1991 HIV SCREENING 11/15/2006 HEPATITIS C SCREENING 11/15/2009 PAP 11/15/2012 HPV IMMUNIZATION (2 - 3-dose series) 12/20/2014 11/22/2014 PHQ-2 (once per calendar year) 2023 COVID-19 Vaccine (1 - 2022- season) 2024 INFLUENZA VACCINE (#1) 2024 DTAP/TDAP/TD IMMUNIZATION (8 [...] age to complete this topic Care Teams Flower Cheniller Relationship Specialty Start Date End Date Raven Laguna MD [facility] [address] [place] [address] PCP - General pipe organ installer 04/23/23 Lamine Pizarro MD [address] [place] [address] Nephrology 04/23/23
--- OUTSIDE RECORDS SUMMARY | 2024-01-29 03:02 | XMS_ITS | Encounter Summary ---
Author Organization [facility] Address [address] [place] [address]. [place] [address] Care Team Providers Care Field Artillery Cannoneer Name Role Phone Lamine Pizarro MD Unavailable [phone] Raven Laguna MD Primary Care Provider [phone] Encounter Details Date Type Department Care Team ([facility] Contact Info) Description 10/27/2023 Medical Correspondence [facility] [address] [place] [phone] Scan, Non-Provider Social History Tobacco Use Types Packs/Day Years Used Date Smoking Tobacco: Former Cigarettes 0.5 2 Adolescent Education Answer Date Record ed Getting School Help Needed Not on file 04/22 Sex and Gender Information Value Date Recorded Sex Assigned at Female 06/19/2023 11:52 AM RADIO FREQUENCY DESIGN ENGINEER Gender Identity Female 06/19/2023 11:52 AM RADIO FREQUENCY DESIGN ENGINEER Sexual Orientation Straight 06/19/2023 11 :52 AM RADIO FREQUENCY DESIGN ENGINEER documented as of this encounter Plan of Treatment Upcoming Encounters Date Type Department Care Team ([facility] Contact Info) Description 03/10/2024 10:15 AM CDT Office Visit [facility] Maternal Medicine [facility] [address] [place] [phone] Esme Ramirez MD [address] [place] [address] 03/10/2024 11:00 AM CDT Appointment [facility] Maternal Medicine [facility] [address] [place] [address] Esme Ramirez MD [address] [place] [address] 03/10/2024 11:30 AM CDT Office Visit [facility] Maternal Medicine [facility] [address] [place] [address] Esme Ramirez MD [address] [place] [address] documented as of this encounter Visit Diagnoses Not on filedocumented in this encounter Care Teams Field Artillery Cannoneer Relationship Specialty Start Date End Date Raven Laguna MD [address] [address] PCP - General microgrinder operator 04/23/23 Lamine Pizarro MD [address] [place] [address] Nephrology 04/23/23 documented as of this encounter
--- OUTSIDE RECORDS SUMMARY | 2024-01-29 03:02 | XMS_ITS | Encounter Summary ---
Author Organization [facility] Address [address] [place] [address]. [place] [address] Care Team Providers Care Mannequin Decorator Name Role Phone Lamine Pizarro MD Unavailable [phone] Raven Laguna MD Primary Care Provider [phone] Encounter Details Date Type Department Care Team (Late st Contact Info) Description 11/20/2023 Telephone [facility] M[facility] Medicine [facility] [place] [address] [place] [address] Stefano Livingston MD [address] [place] [address] Social History Tobacco Use Types Packs/Day Years Used Date Smoking Tobacco: Former Cigarettes 0.5 2 Adolescent Education Answer Date Record ed Getting School Help Needed Not on file 04/22 Sex and Gender Information Value Date Recorded Sex Assigned at Female 06/19/2023 11:52 AM CANDY DEPARTMENT MANAGER Gender Identity Female 06/19/2023 11:52 AM CANDY DEPARTMENT MANAGER Sexual Orientation Straight 06/19/2023 11 :52 AM CANDY DEPARTMENT MANAGER documented as of this encounter Miscellaneous Notes * Telephone Encounter - Stefano Livingston MD - 11/20/2023 1:59 PM CDT I called Darius to review the results of her evaluation since her [facility] Consult here on 08/28/2023, which are summarized [...] MR PELVIS OVARY OR UTERUS WWO LOCATION: [facility] DATE: 09/04/2023 INDICATION: Pelvic Pain History [...] office for confirmation and dating US at [facility] at 11-12 weeks Early anatomy US at 15-16 weeks gestation Comprehensive US at 18-20 weeks gestation Serial growth US every 4 weeks after comprehensive US Weekly BPP at 32 weeks Darius and Isaac had not further questions today and will contact us if additional questions arise. Stefano Livingston MD documented in this encounter Plan of Treatment Upcoming Encounters Date Type Department Care Team (Late st Contact Info) Description 03/10/2024 10:15 AM CDT Office Visit [facility] Medicine [place] [address] [facility] [address] [place] [phone] Esme Ramirez MD [address] [place] [address] 03/10/2024 11:00 AM CDT Appointment [facility] Medicine [facility] [address] [facility] [address] [place] [phone] Esme Ramirez MD [address] [place] [address] 03/10/2024 11:30 AM CDT Office Visit [facility] Medicine [facility] [address] [facility] [address] [place] [phone] Esme Ramirez MD [address] [place] [address] documented as of this encounter Visit Diagnoses Not on filedocumented in this encounter Care Teams Mannequin Decorator Relationship Specialty Start Date End Date Raven Laguna MD [facility] [address] [place] [address] PCP - General flight physician 04/23/23 Lamine Pizarro MD [address] [place] [address] Nephrology 04/23/23 documented as of this encounter
--- OUTSIDE RECORDS SUMMARY | 2024-01-29 03:02 | XMS_ITS | Encounter Summary ---
Author Organization [facility] Address [address] [place] [address] Care Team Providers Care Healthcare Insurance Sales Agent Name Role Phone Lamine Pizarro MD Unavailable [phone] Raevn Laguna MD Primary Care Provider [phone] Reason for Referral * Diagnostic Imaging Ultrasound (Routine) - Pending Review Specialty Diagnoses / Procedures Referred By Contac t Referred To Contact Radiology. Diagnoses related condition, antepartum Procedures MFM US OB Complete 2/3 Tri Single Esme Ramirez MD [address] [place] [address] Referral ID Status Reason Start Date Expiration Date V isits Requested Visits Authorized [id number] Pending Review 01/28/2024 01/27/2025 1 1 * Consultation (Routine: Next available opening) - Pending Review Specialty Diagnoses / Procedures Referred By Contac t Referred To Contact Diagnoses related condition, antepartum Esme Ramirez MD [address] [place] [address] Referral ID Status Reason Start Date Expiration Date V isits Requested Visits Authorized [id number] Pending Review 01/28/2024 01/27/2025 1 1 Comments HX of IUFD, chronic hypertension * Consultation (Routine) - Pending Review Specialty Diagnoses / Procedures Referred By Kevin t Referred To Contact Diagnoses related condition, antepartum Esme Ramirez MD [address] [place] [address] [facility] [address] [facility] [address] [place] [address] Referral ID Status Reason Start Date Expiration Date V isits Requested Visits Authorized [id number] Pending Review 01/28/2024 01/27/2025 1 1 Question Answer MFM Consultation (unrelated to Ultrasound findings) No Genetic Counseling Consultation: No fax [facility] Esme Garcia [phone] Ultrasound Complete US (14-17.6 weeks GA) US PROC NONE Preferred Location: [facility] R[facility] 08/31/2024 MFM Issue OTHER (enter details in Comments) - HX of IUFD, chronic hypertension Comments There is no height or weight [...] Department Care Team (Latest Contact Info) Description 01/28/2024 Transcribe Orders [facility] M[facility] Medicine [facility] [place] [address] [place] [address] Esme Ramirez MD [address] [place] [address] related condition, antepartum (Primary Dx) Social History Tobacco Use Types Packs/Day Years Used Date Smoking Tobacco: Former Cigarettes 0.5 2 Adolescent Education Answer Date Record ed Getting School Help Needed Not on file 04/22 Sex and Gender Information Value Date Recorded Sex Assigned at Female 06/19/2023 11:52 AM TACKER OFF Gender Identity Female 06/19/2023 11:52 AM TACKER OFF Sexual Orientation Straight 06/19/2023 11 :52 AM TACKER OFF documented as of this encounter Plan of Treatment Upcoming Encounters Date Type Department Care Team (Late st Contact Info) Description 03/10/2024 10:15 AM CDT Office Visit [facility] Maternal Medicine [place] [address] [facility] [address] [place] [phone] Esme Ramirez MD [address] [place] [address] 03/10/2024 11:00 AM CDT Appointment [facility] Maternal Medicine [place] [address] [facility] [address] [place] [phone] Esme Ramirez MD [address] [place] [address] 03/10/2024 11:30 AM CDT Office Visit [facility] Medicine [place] [address] [facility] [address] [place] [phone] Esme Ramirez MD [address] [place] [address] Scheduled Orders Name Type Priority Associated Diagnoses Orde r Schedule [facility] US OB Complete 2/3 Tri Single Imaging Routine related condition, antepartum Expected: 03/09/2024 (Approximate), Expires: 11/26/2024 Scheduled Referrals Name Type Priority Associated Diagnoses Orde r Schedule [facility] Referral - Referral Routine related condition, antepartum Expected: 03/09/2024 (Approximate), Expires: 07/26/2024 [facility] Genetic Counseling Referral Routine: Next available opening related condition, antepartum Expected: 03/09/2024 (Approximate), Expires: 01/27/2025 documented as of this encounter Visit Diagnoses Diagnosis related condition, antepartum- Primary documented in this encounter Care Teams Healthcare Insurance Sales Agent Relationship Specialty Start Date End Date Raven Laguna MD [facility] [address] [place] [address] PCP - General quebracho tanner 04/23/23 Lamine Pizarro MD [address] [place] [address] Nephrology 04/23/23 documented as of this encounter
--- OUTSIDE RECORDS SUMMARY | 2024-01-29 03:02 | XMS_ITS | Clinical Summary ---
Author Organization [employer] [facility] Address [place], [place] [address] Care Team Providers Care Engineering Technical Specialist Name Role Phone Jyoti Cope DO Primary Care Provider [phone] Allergies Active Allergy Reactions Criticality Noted Date Comments Sulfa (Sulfonamide Antibiotics) *Unknown Unknown 06/27 Medications Medication Sig Dispensed Refills Start Date End Date Status Ivxzdset-Sk-Mci-Fe-F A tab tablet Take 1 Tablet by [...] Description 12/30/2023 11:00 AM CDT Orders Only [facility] [address] [facility] [address] [facility], [place] [facility] 12/30/2023 7:40 AM CDT E-Visit [facility] [address] [place] [address] Jyoti Cope, DO eVisit for Urinary Tract Infection 12/30/2023 Travel 12/03/2023 Orders Only [facility] Scanner 1 scan: (1-Ord) TAREEN [...] 03/12/2022 03/12/2019 COVID-19 vaccine series ( season) 2024 Influenza for age 9-49 01/25/2024 Depression screening [...] SCAN-OPERATIVE/PROCE DURE REPORT 12/03/2023 12:00 AM CDT ADMINISTRATIVE EXECUTIVE THIN PREP PAP SCREEN IMAGED Routine 03/12/2019 3:17 PM CDT Routine general medical examination at health care facility Screening for malignant neoplasm of cervix from Last 3 Months or Most Recently Relevant to Health Maintenance Results * URINALYSIS MICROSCOPIC (12/30/2023 9:10 AM CDT) RBC None Seen 0-2, None Seen /HPF 12/30/2023 9:20 AM CDT [facility] WBC 3-5 0-2, 3-5, None Seen /HPF 12/30/2023 9:20 AM CDT [facility] BACTERIA Few None Seen, Rare, Few Bacteria/ HPF 12/30/2023 9:20 AM CDT [facility] EPITHELIAL CELLS Few None Seen, Few Epi/HPF 12/30/2023 9:20 AM CDT [facility] Urine URINE SPECIMEN / Unknown Non-Blood / Unknown 12/30/2023 9:10 AM CDT 12/30/2023 9:10 AM CDT Jyoti Mcgarryanabelle DO URINE [facility] [address] [place] [address], * (ABNORMAL) URINE CULTURE (12/30/2023 9:10 AM CDT) CULTURE RESULT(A) 01/01/2024 11:05 AM CDT [facility] CULTURE >100,000 CFU/mL Escherichia coli 01/01/2024 11:05 AM CDT [facility] Urine URINE SPECIMEN [...] NITROFURANTOIN <=16: S Jyoti Mcgarrydenise QUIROZ MICROBIOLOGY [facility] [address] [place] [address], [place] * (ABNORMAL) UA W/ SEDIMENT EXAM REFLEXED PER CRITERIA (12/30/2023 9:10 AM CDT) COLOR Yellow Yellow Color 12/30/2023 9:19 AM CDT [facility] CLARITY Clear Clear Clarity 12/30/2023 9:19 AM CDT [facility] SPECIFIC GRAVITY,URINE 1.010 1.010, 1.015, 1.020, 1.025 12/30/2023 9:19 AM CDT [facility] PH,URINE 7.0 6.0, 7.0, 8.0, 5.5, 6.5, 7.5, 8.5 12/30/2023 9:19 AM CDT [facility] UROBILINOGEN, QUALITATIVE Normal Normal EU/dl 12/30/2023 9:19 AM CDT [facility] PROTEIN, URINE Negative Negative mg/dL 12/30/2023 9:19 AM CDT [facility] GLUCOSE, URINE Negative Negative mg/dL 12/30/2023 9:19 AM CDT [facility] KETONES,URINE Negative Negative mg/dL 12/30/2023 9:19 AM CDT [facility] BILIRUBIN,URI NE Negative Negative 12/30/2023 9:19 AM CDT [facility] OCCULT BLOOD,URINE Negative Negative 12/30/2023 9:19 AM CDT [facility] NITRITE Positive(A) Negative 12/30/2023 9:19 AM CDT [facility] LEUKOCYTE ESTERASE Trace(A) Negative 12/30/2023 9:19 AM CDT [facility] Urine URINE SPECIMEN / Unknown Non-Blood / Unknown 12/30/2023 9:10 AM CDT 12/30/2023 9:10 AM CDT Jyoti Cope DO URINE [facility] [address] [place] [address], * SCAN-OPERATIVE/PROCEDURE REPORT (12/03/2023 12:00 AM CDT) Scanner OTHER * ADMINISTRATIVE EXECUTIVE THIN PREP PAP SCREEN IMAGED (03/12/2019 3:17 PM CDT) Case Report Gynecologic Cytology Report ? Case: [id number] ? Authorizing Provider: ??Roslyn Bentley MD ? Collected: ? 03/12/2019 1517 ? Ordering Location: ? [facility] ?Received: ?03/12/2019 1518 ? Clinic ? First Screen: ?Orin Mancuso ? Specimen: ?ADMINISTRATIVE EXECUTIVE ThinPrep Vial Screening, Cervical ? 03/23/2019 10:42 AM CDT [facility] INTERPRETATION/ RESULT NEGATIVE FOR INTRAEPITHELIAL LESION OR MALIGNANCY (NIL) (none) 03/23/2019 10:[address] [facility] IMEN ADEQUACY Satisfactory for evaluation Endocervical component present 03/23/2019 10:42 AM T [facility] HPV REQUEST HPV if ASCUS 03/23/2019 10:[address] [facility] Date of LMP 02/19/2019 03/23/2019 10:42 AM [facility] Last Pap Date at least 5 years ago 03/23/2019 10:[address] [facility] Last Pap Result First Pap/Unknown 10:42 AM CDT [facility] Abnormal Pap or [place] Bx in last 5 years No 03/23/2019 10:[address] [facility] Menstrual Status Regular Periods 03/23/2019 10:[address] [facility] [place] Bx Done Today No 03/23/2019 10:42 AM [facility] Additional Information None given 03/23/2019 10:[address] [facility] Automated Review Successful 03/23/2019 10:42 AM [facility] Comment:Specimen processed s uccessfully by automated garment sewer hand device, ThinPrep Imaging System, [employer] Note The pap test is a [...] lesions. Cytology is screened and interpreted at [facility] Central Laboratory - [address], [place] [address] and [facility] - [address]; [place] [address] and [facility] - [address]; [place] [address] and [facility] [address]; [place] [address] 03/23/2019 10:42 AM CDT [facility] Other (Cervical) Non-Blood / Unknown 03/12/2019 3:17 PM CDT 03/12/2019 3:18 PM CDT Roslyn Bentley MD PATHOLOGY/CYTOLOGY [facility] [address] [place] [address], [place] from Last 3 Months or Most Recently Relevant to Health Maintenance Care Teams Engineering Technical Specialist Relationship Specialty Start Date End Date Jyoti Cope DO [address] [place] [address] PCP - General Family Practice 01/08/23
--- OUTSIDE RECORDS SUMMARY | 2024-01-29 03:02 | XMS_ITS | Referral Summary ---
Author Organization [place] Address [facility] [place] [address] Care Team Providers Care Private Duty Lpn Name Role Phone Lamine Pizarro MD Unavailable [phone] Raven Laguna MD Primary Care Provider [phone] Encounters Date Type Department Care Team Description 01/28/2024 Transcribe Orders [facility] Maternal Medicine [facility] [address] [place] [address] Esme Stanford MD related condition, antepartum (Primary Dx) 11/20/2023 Telephone [facility] Maternal Medicine [facility] [address] [place], [place] [address] Stefano Livingston MD from Last 3 Months Allergies No known [...] Sex Assigned at Female 06/19/2023 11:52 AM REGISTERED NURSE MATERNITY Gender Identity Female 06/19/2023 11:52 AM REGISTERED NURSE MATERNITY Sexual Orientation Straight 06/19/2023 11 :52 AM REGISTERED NURSE MATERNITY Last Filed Vital Signs Vital Sign Reading [...] Description 03/10/2024 10:15 AM CDT Office Visit [facility] Medicine [place] [address] [place] [phone] Esme Ramirez MD [address] [place], [place] [address] 03/10/2024 11:00 AM CDT Appointment [facility] Maternal Medicine [facility] [address] [place] [phone] Esme Ramirez MD [address] [place], [place] [address] 03/10/2024 11:30 AM CDT Office Visit [facility] Maternal Medicine [facility] [address] [place] [phone] Esme Ramirez MD [address] [place] [address] Care Teams Private Duty Lpn Relationship Specialty Start Date End Date Raven Laguna MD [address] [address] PCP - General wrecking mechanic 04/23/23 Lamine Pizarro MD [address] [place] [address] Nephrology 04/23/23
--- OUTSIDE RECORDS SUMMARY | 2024-01-29 03:02 | XMS_ITS | Encounter Summary ---
Author Organization [place] Address [address] [place] [address] Care Team Providers Care Straightedge Man Name Role Phone Lamine Pizarro MD Unavailable [phone] Raven Laguna MD Primary Care Provider [phone] Reason for Referral * Consultation (Routine: Next available opening) - Pending Review Specialty Diagnoses / Procedures Referred By Kevin montalvo Referred To Contact Diagnoses Encounter for preconception consultation Esme Ramirez MD [address] [place] [address] Maternal Med [address] [facility] [address] [place] [address] Referral ID Status Reason Start Date Expiration Date V isits Requested Visits Authorized [id number] Pending Review 10/27/2023 10/26/2024 1 1 Question Answer Preferred Location: [facility] Indication: personal hx of other complications [...] (Latest Contact Info) Description 10/27/2023 Transcribe Orders [facility] Medicine [place] [address] [facility] [address] [place] [address] Esme Ramirez MD [address] [place], [place] [address] Encounter for preconception consultation (Primary Dx) Social History Tobacco Use Types Packs/Day Years Used Date Smoking Tobacco: Former Cigarettes 0.5 2 Adolescent Education Answer Date Record ed Getting School Help Needed Not on file 04/22 Sex and Gender Information Value Date Recorded Sex Assigned at Female 06/19/2023 11:52 AM CRIME VICTIM SPECIALIST Gender Identity Female 06/19/2023 11:52 AM CRIME VICTIM SPECIALIST Sexual Orientation Straight 06/19/2023 11 :52 AM CRIME VICTIM SPECIALIST documented as of this encounter Plan of Treatment Upcoming Encounters Date Type Department Care Team (Late st Contact Info) Description 03/10/2024 10:15 AM CDT Office Visit [facility] Medicine [place] [address] [facility] [address] [place] [phone] Esme Ramirez MD [address] [place] [address] 03/10/2024 11:00 AM CDT Appointment [facility] Medicine [place] [address] [facility] [address] [place] [phone] Esme Ramirez MD [address] [place] [address] 03/10/2024 11:30 AM CDT Office Visit [facility] Maternal Medicine [place] [address] [facility] [address] [place] [phone] Esme Ramirez MD [address] [place] [address] Scheduled Referrals Name Type Priority Associated Diagnoses Orde r Schedule Mat Med CTR Referral - Preconception Referral Routine: Next available opening Encounter for preconception consultation Expected: 10/27/2023 (Approximate), Expires: 04/24/2024 documented as of this encounter Visit Diagnoses Diagnosis Encounter for preconception consultation- Primary documented in this encounter Care Teams Straightedge Man Relationship Specialty Start Date End Date Raven Laguna MD [address] [address] PCP - General damper maker 04/23/23 Lamine Pizarro MD [address] [place] [address] Nephrology 04/23/23 documented as of this encounter
== END 2024-01-27 08:55 | disposition home or self-care (01) ==
LOC: NFLDREF 01-29 02:59
PROVIDERS: PCP Family Medicine; Referring Provider Family Medicine; Visit Provider Obstetrics & Gynecology
DX: O16.1 Unspecified maternal hypertension, first trimester (principal); Z3A.08 8 weeks gestation of pregnancy
CPT/HCPCS: 82570; 84156

== ENCOUNTER 2024-02-05 09:11 | Outpatient (CLI) | payer MEDICAID, SELFPAY ==
--- OUTSIDE RECORDS SUMMARY | 2024-02-05 09:17 | XMS_ITS | Encounter Summary ---
Author Organization [place] Address [address] [place] [address]. [place] [address] Care Team Providers Care Correctional Program Specialist Name Role Phone Lamine Pizarro MD Unavailable [phone] Raven Laguna MD Primary Care Provider [phone] Encounter Details Date Type Department Care Team (Late Contact Info) Description 01/23/2024 Medical Correspondence [facility] Information Management [address] [facility] [address] [place] [address] Scan, Non-Provider Social History Tobacco Use Types Packs/Day Years Used Date Smoking Tobacco: Former Cigarettes 0.5 2 Adolescent Education Answer Date Record ed Getting School Help Needed Not on file 04/22 Sex and Gender Information Value Date Recorded Sex Assigned at Female 06/19/2023 11:52 AM CYCLE SPECIALIST Gender Identity Female 06/19/2023 11:52 AM CYCLE SPECIALIST Sexual Orientation Straight 06/19/2023 11 :52 AM CYCLE SPECIALIST documented as of this encounter Plan of Treatment Upcoming Encounters Date Type Department Care Team (Late Contact Info) Description 03/10/2024 10:15 AM CDT Office Visit [facility] Maternal Medicine [facility] [address] [facility] [address] [place] [address] Esme Ramirez MD [address] [place] [address] 03/10/2024 11:00 AM CDT Appointment [facility] Maternal Medicine [facility] [address] [facility] [address] [place] [address] Esme Ramirez MD [address] [place] [address] 03/10/2024 11:30 AM CDT Office Visit [facility] Maternal Medicine [facility] [address] [facility] [address] [place] [address] Esme Ramirez MD [address] [place] [address] documented as of this encounter Visit Diagnoses Not on filedocumented in this encounter Care Teams Correctional Program Specialist Relationship Specialty Start Date End Date Raven Laguna MD [address] [address] PCP - General computer art instructor 04/23/23 Lamine Pizarro MD [address] [place] [address] Nephrology 04/23/23 documented as of this encounter
--- OUTSIDE RECORDS SUMMARY | 2024-02-05 09:17 | XMS_ITS | Referral Summary ---
Author Organization [place] Address [address] [place] [address]. [place] [address] Care Team Providers Care Division Field Inspector Name Role Phone Lamine Pizarro MD Unavailable [phone] Raven Laguna MD Primary Care Provider [phone] Encounters Date Type Department Care Team Description 01/28/2024 Transcribe Orders [facility] Maternal Medicine [facility] [address] [facility] [address] [place] [address] Esme Aguirre MD related condition, antepartum (Primary Dx) 01/27/2024 Medical Correspondence [address] [place] [address] Scan, Non-Provider [facility] [place] PROVIDER SERVICE REQUEST- OUTPATIENT 01/23/2024 Medical Correspondence [address] [place] [address] Scan, Non-Provider 11/20/2023 Telephone [facility] Maternal Medicine [address] [address] Stefano Livingston MD from Last 3 Months [...] Sex Assigned at Female 06/19/2023 11:52 AM ROCK CRUSHING MACHINE OPERATOR Gender Identity Female 06/19/2023 11:52 AM ROCK CRUSHING MACHINE OPERATOR Sexual Orientation Straight 06/19/2023 11 :52 AM ROCK CRUSHING MACHINE OPERATOR Last Filed Vital Signs Vital Sign [...] Description 03/10/2024 10:15 AM CDT Office Visit [facility] Medicine [facility] [address] [facility] [address] [place] [phone] Esme Ramirez MD [address] [place], [place] [phone] 03/10/2024 11:00 AM CDT Appointment [facility] Maternal Medicine [facility] [address] [facility] [address] [place] [address] Esme Ramirez MD [address] [place] [phone] 03/10/2024 11:30 AM CDT Office Visit [facility] Maternal Medicine [facility] [address] [place] [address] Esme Ramirez MD [address] [place] [address] Care Teams Division Field Inspector Relationship Specialty Start Date End Date Raven Laguna MD [address] [address] PCP - General insole filler 04/23/23 Lamine Pizarro MD [address] [place] [address] Nephrology 04/23/23
--- OUTSIDE RECORDS SUMMARY | 2024-02-05 09:17 | XMS_ITS | Clinical Summary ---
Author Organization [facility] Address [place], [place] [address] Care Team Providers Care Flight Operations Inspector Name Role Phone Jyoti Cope DO Primary Care Provider [phone] Allergies Active Allergy Reactions Criticality Noted Date Comments Sulfa (Sulfonamide Antibiotics) *Unknown Unknown 06/27 Medications Medication Sig Dispensed Refills Start Date End Date Status Jzaeeouy-Tk-Lyu-Fe-FA tab tablet Take 1 Tablet by mouth [...] Anxiety or Sleep. 30 Tablet 10/06/2023 Active Active Problems Problem Noted Date Diagnosed Date PCOS (polycystic ovarian syndrome) 12/25/2019 Encounters Date Type Department Care Team Description 12/30/2023 11:00 AM CDT Orders Only [facility] [address] [place] [address] Lab, [place] [facility] 12/30/2023 7:40 AM CDT E-Visit [facility] [address] [place] [address] AnatoliySiri Renetta, DO eVisit for Urinary Tract Infection 12/30/2023 Travel 12/03/2023 Orders Only [facility] Scanner 1 scan: (1-Ord) TAREEN [...] SCAN-OPERATIVE/PROCE DURE REPORT 12/03/2023 12:00 AM CDT ASSEMBLER ARRANGER THIN PREP PAP SCREEN IMAGED Routine 03/12/2019 3:17 PM CDT Routine general medical examination at health care facility Screening for malignant neoplasm of cervix from Last 3 Months or Most Recently Relevant to Health Maintenance Results * URINALYSIS MICROSCOPIC (12/30/2023 9:10 AM CDT) RBC None Seen 0-2, None Seen /HPF 12/30/2023 9:20 AM CDT [facility] WBC 3-5 0-2, 3-5, None Seen /HPF 12/30/2023 9:20 AM CDT [facility] BACTERIA Few None Seen, Rare, Few Bacteria/ HPF 12/30/2023 9:20 AM CDT [facility] EPITHELIAL CELLS Few None Seen, Few Epi/HPF 12/30/2023 9:20 AM CDT [facility] Urine URINE SPECIMEN / Unknown Non-Blood / Unknown 12/30/2023 9:10 AM CDT 12/30/2023 9:10 AM CDT Jyoti Cope DO URINE [facility] [address] [place] [address], * (ABNORMAL) URINE CULTURE (12/30/2023 9:10 AM CDT) CULTURE RESULT(A) 01/01/2024 11:05 AM CDT [facility] CULTURE >100,000 CFU/mL Escherichia coli 01/01/2024 11:05 AM CDT [facility] Urine URINE SPECIMEN / Unknown Non-Blood / Unknown 12/30/2023 9:10 AM CDT 12/30/2023 9:10 AM CDT Narrative Organism Antibiotic Method Susceptibility Escherichia coli TRIMETHOPRIM/SULF <=/19: S Escherichia coli AMPICILLIN <=2: S Escherichia [...] S Escherichia coli NITROFURANTOIN <=16: S Jyoti Dickens MICROBIOLOGY [facility] [address] [place] [address], [place] * (ABNORMAL) UA W/ SEDIMENT EXAM REFLEXED PER CRITERIA (12/30/2023 9:10 AM CDT) COLOR Yellow Yellow Color 12/30/2023 9:19 AM CDT [facility] CLARITY Clear Clear Clarity 12/30/2023 9:19 AM CDT [facility] SPECIFIC GRAVITY,URINE 1.010 1.010, 1.015, 1.020, 1.025 12/30/2023 9:19 AM CDT [facility] PH,URINE 7.0 6.0, 7.0, 8.0, 5.5, 6.5, 7.5, 8.5 12/30/2023 9:19 AM CDT [facility] UROBILINOGEN, QUALITATIVE Normal Normal EU/dl 12/30/2023 9:19 AM CDT [facility] PROTEIN, URINE Negative Negative mg/dL 12/30/2023 9:19 AM CDT [facility] GLUCOSE, URINE Negative Negative mg/dL 12/30/2023 9:19 AM CDT [facility] KETONES,URINE Negative Negative mg/dL 12/30/2023 9:19 AM CDT [facility] BILIRUBIN,URI NE Negative Negative 12/30/2023 9:19 AM CDT [facility] OCCULT BLOOD,URINE Negative Negative 12/30/2023 9:19 AM CDT [facility] NITRITE Positive(A) Negative 12/30/2023 9:19 AM CDT [facility] LEUKOCYTE ESTERASE Trace(A) Negative 12/30/2023 9:19 AM CDT [facility] Urine URINE SPECIMEN / Unknown Non-Blood / Unknown 12/30/2023 9:10 AM CDT 12/30/2023 9:10 AM CDT Jyoti Cope DO URINE [facility] [address] [place] [address], [place] [phone] * SCAN-OPERATIVE/PROCEDURE REPORT (12/03/2023 12:00 AM CDT) Scanner OTHER * ASSEMBLER ARRANGER THIN PREP PAP SCREEN IMAGED (03/12/2019 3:17 PM CDT) Case Report Gynecologic Cytology Report ? Case: [id number] ? Authorizing Provider: ??Roslyn Bentley MD ? Collected: ? 03/12/2019 1517 ? Ordering Location: ? [facility] [place] ?Received: ?03/12/2019 1518 ? Clinic ? First Screen: ?Orin Mancuso ? Specimen: ?ASSEMBLER ARRANGER ThinPrep Vial Screening, Cervical ? 03/23/2019 10:42 AM CDT [facility] INTERPRETATION/ RESULT NEGATIVE FOR INTRAEPITHELIAL LESION OR MALIGNANCY (NIL) (none) 03/23/2019 10:[address] [facility] IMEN ADEQUACY Satisfactory for evaluation Endocervical component present 03/23/2019 10:42 AM CDT [facility] HPV REQUEST HPV if ASCUS 03/23/2019 10:[address] [facility] Date of LMP 02/19/2019 03/23/2019 10:42 AM CDT [facility] Last Pap Date at least 5 years ago 03/23/2019 10:42 AM CDT [facility] Last Pap Result First Pap/Unknown 10:42 AM CDT [facility] Abnormal Pap or [place] Bx in last 5 years No 03/23/2019 10:[address] [facility] Menstrual Status Regular Periods 03/23/2019 10:[address] [facility] [place] Bx Done Today No 03/23/2019 10:42 AM CDT [facility] Additional Information None given 03/23/2019 10:[address] [facility] Automated Review Successful 03/23/2019 10:42 AM CDT [facility] Comment:Specimen processed s uccessfully by automated porcelain enameling supervisor device, ThinPrep Imaging System, [employer] Note The pap test is a [...] lesions. Cytology is screened and interpreted at [facility] - [address], [place] [address] and [facility] - [address] [place] [address]; [place] [address] and [facility] - [address]; [place] [address] [facility] [address]; [place] [address] 03/23/2019 10:42 AM CDT [facility] Other (Cervical) Non-Blood / Unknown 03/12/2019 3:17 PM CDT 03/12/2019 3:18 PM CDT Roslyn Bentley MD PATHOLOGY/CYTOLOGY [facility] [address] [place] [address], from Last 3 Months or Most Recently Relevant to Health Maintenance Care Teams Flight Operations Inspector Relationship Specialty Start Date End Date Jyoti Cope DO [address] [place] [address] PCP - General Family Practice 01/08/23
--- OUTSIDE RECORDS SUMMARY | 2024-02-05 09:17 | XMS_ITS | Encounter Summary ---
Author Organization [place] Address [address] [place] [address]. [place] [address] Care Team Providers Care Engraver Tender Name Role Phone Lamine Pizarro MD Unavailable [phone] Raven Laguna MD Primary Care Provider [phone] Encounter Details Date Type Department Care Team ([facility] Contact Info) Description 10/27/2023 Medical Correspondence [facility] [address] [place] [address] Scan, Non-Provider Social History Tobacco Use Types Packs/Day Years Used Date Smoking Tobacco: Former Cigarettes 0.5 2 Adolescent Education Answer Date Record ed Getting School Help Needed Not on file 04/22 Sex and Gender Information Value Date Recorded Sex Assigned at Female 06/19/2023 11:52 AM FIRE EXTINGUISHER TESTER Gender Identity Female 06/19/2023 11:52 AM FIRE EXTINGUISHER TESTER Sexual Orientation Straight 06/19/2023 11 :52 AM FIRE EXTINGUISHER TESTER documented as of this encounter Plan of Treatment Upcoming Encounters Date Type Department Care Team ([facility] Contact Info) Description 03/10/2024 10:15 AM CDT Office Visit [facility] Maternal Medicine [facility] [address] [facility] [address] [place] [phone] Esme Ramirez MD [address] [place] [address] 03/10/2024 11:00 AM CDT Appointment [facility] Maternal Medicine [facility] [address] [place] [address] Esme Ramirez MD [address] [place] [address] 03/10/2024 11:30 AM CDT Office Visit [facility] Maternal Medicine [facility] [address] [place] [address] Esme Ramirez MD [address] [place] [address] documented as of this encounter Visit Diagnoses Not on filedocumented in this encounter Care Teams Engraver Tender Relationship Specialty Start Date End Date Raven Laguna MD [address] [address] PCP - General clinical analyst 04/23/23 Lamine Pizarro MD [address] [place] [address] Nephrology 04/23/23 documented as of this encounter
--- OUTSIDE RECORDS SUMMARY | 2024-02-05 09:17 | XMS_ITS | Encounter Summary ---
Author Organization [place] Address [address] [place] [address]. [place] [address] Care Team Providers Care Bark Peeler Name Role Phone Lamine Pizarro MD Unavailable [phone] Raven Laguna MD Primary Care Provider [phone] Encounter Details Date Type Department Care Team (Latest Contact Info) Description 01/27/2024 Medical Correspondence [facility] Information Management [address] [facility] [address] [place] [address] Scan, Non-Provider [facility] PROVIDER SERVICE REQUEST- OUTPATIENT Social History Tobacco Use Types Packs/Day Years Used Date Smoking Tobacco: Former Cigarettes 0.5 2 Adolescent Education Answer Date Record ed Getting School Help Needed Not on file 04/22 Sex and Gender Information Value Date Recorded Sex Assigned at Female 06/19/2023 11:52 AM LATHE MACHINIST Gender Identity Female 06/19/2023 11:52 AM LATHE MACHINIST Sexual Orientation Straight 06/19/2023 11 :52 AM LATHE MACHINIST documented as of this encounter Plan of Treatment Upcoming Encounters Date Type Department Care Team (Late st Contact Info) Description 03/10/2024 10:15 AM CDT Office Visit [facility] Maternal Medicine [facility] [address] [facility] [address] [place] [phone] Esme Ramirez MD [address] [place] [address] 03/10/2024 11:00 AM CDT Appointment [facility] Medicine [facility] [address] [facility] [address] [place] [address] Esme Ramirez MD [address] [place] [address] 03/10/2024 11:30 AM CDT Office Visit [facility] Maternal Medicine [facility] [address] [facility] [address] [place] [address] Esme Ramirez MD [address] [place] [address] documented as of this encounter Visit Diagnoses Not on filedocumented in this encounter Care Teams Bark Peeler Relationship Specialty Start Date End Date Raven Laguna MD [address] [address] PCP - General feather separator 04/23/23 Lamine Pizarro MD [address] [place] [address] Nephrology 04/23/23 documented as of this encounter
--- OUTSIDE RECORDS SUMMARY | 2024-02-05 09:17 | XMS_ITS | Encounter Summary ---
Author Organization [place] Address [address] [place] [address] Care Team Providers Care Senior Instructional Designer Name Role Phone Lamine Pizarro MD Unavailable Raven Laguna MD Primary Care Provider [phone] Reason for Referral * Diagnostic Imaging Ultrasound (Routine) - Pending Review Specialty Diagnoses / Procedures Referred By Contac t Referred To Contact Radiology. Diagnoses related condition, antepartum Procedures MFM US OB Complete 2/3 Tri Single Esme Ramirez MD [address] [place] [address] Referral ID Status Reason Start Date Expiration Date V isits Requested Visits Authorized [id number] Pending Review 01/28/2024 01/27/2025 1 1 * Consultation (Routine: Next available opening) - Pending Review Specialty Diagnoses / Procedures Referred By Contac t Referred To Contact Diagnoses related condition, antepartum Esme Ramirez MD [address] [place] [address] Referral ID Status Reason Start Date Expiration Date V isits Requested Visits Authorized [id number] Pending Review 01/28/2024 01/27/2025 1 1 Comments HX of IUFD, chronic hypertension * Consultation (Routine) - Pending Review Specialty Diagnoses / Procedures Referred By Kevin t Referred To Contact Diagnoses related condition, antepartum Esme Ramirez MD [address] [place] [address] [facility] Maternal Med [address] [facility] [address] [place] [address] Referral ID Status Reason Start Date Expiration Date V isits Requested Visits Authorized [id number] Pending Review 01/28/2024 01/27/2025 1 1 Question Answer MFM Consultation (unrelated to Ultrasound findings) No Genetic Counseling Consultation: No fax [facility] Esme Garcia [phone] Ultrasound Complete US (14-17.6 weeks GA) US PROC NONE Preferred Location: [facility] [place] RODGER 08/31/2024 MFM Issue OTHER (enter details [...] (Latest Contact Info) Description 01/28/2024 Transcribe Orders [facility] [place] [address] [facility] [address] [place] [address] Esme Ramirez MD [address] [place] [address] related condition, antepartum (Primary Dx) Social History Tobacco Use Types Packs/Day Years Used Date Smoking Tobacco: Former Cigarettes 0.5 2 Adolescent Education Answer Date Record ed Getting School Help Needed Not on file 04/22 Sex and Gender Information Value Date Recorded Sex Assigned at Female 06/19/2023 11:52 AM PARK INTERPRETIVE RANGER Gender Identity Female 06/19/2023 11:52 AM PARK INTERPRETIVE RANGER Sexual Orientation Straight 06/19/2023 11 :52 AM PARK INTERPRETIVE RANGER documented as of this encounter Plan of Treatment Upcoming Encounters Date Type Department Care Team (Late st Contact Info) Description 03/10/2024 10:15 AM CDT Office Visit [facility] Maternal Medicine [place] [address] [facility] [address] [place] [phone] Esme Ramirez MD [address] [place] [address] 03/10/2024 11:00 AM CDT Appointment [facility] Maternal Medicine [place] [address] [facility] [address] [place] [phone] Esme Ramirez MD [address] [place] [address] 03/10/2024 11:30 AM CDT Office Visit [facility] Medicine [place] [address] [facility] [address] [place] [phone] Esme Ramirez MD [address] [place] [address] Scheduled Orders Name Type Priority Associated Diagnoses Orde r Schedule [facility] US OB Complete 2/3 Tri Single Imaging Routine related condition, antepartum Expected: 03/09/2024 (Approximate), Expires: 11/26/2024 Scheduled Referrals Name Type Priority Associated Diagnoses Orde r Schedule [facility] Referral - Referral Routine related condition, antepartum Expected: 03/09/2024 (Approximate), Expires: 07/26/2024 [facility] Genetic Counseling Referral Routine: Next available opening related condition, antepartum Expected: 03/09/2024 (Approximate), Expires: 01/27/2025 documented as of this encounter Visit Diagnoses Diagnosis related condition, antepartum- Primary documented in this encounter Care Teams Senior Instructional Designer Relationship Specialty Start Date End Date Raven Laguna MD [facility] [address] [place] [address] PCP - General analytical chemist 04/23/23 Lamine Pizarro MD [address] [place] [address] Nephrology 04/23/23 documented as of this encounter
--- OUTSIDE RECORDS SUMMARY | 2024-02-05 09:17 | XMS_ITS | Encounter Summary ---
Author Organization [place] Address [address] [place] [address]. [place] [address] Care Team Providers Care Interior Design Professor Name Role Phone Lamine Pizarro MD Unavailable [phone] Raven Laguna MD Primary Care Provider [phone] Encounter Details Date Type Department Care Team (Late st Contact Info) Description 11/20/2023 Telephone [facility] [place] [address] [place] [address] Stefano Livingston MD [address] [place] [address] Social History Tobacco Use Types Packs/Day Years Used Date Smoking Tobacco: Former Cigarettes 0.5 2 Adolescent Education Answer Date Record ed Getting School Help Needed Not on file 04/22 Sex and Gender Information Value Date Recorded Sex Assigned at Female 06/19/2023 11:52 AM VEGETABLE PACKER Gender Identity Female 06/19/2023 11:52 AM VEGETABLE PACKER Sexual Orientation Straight 06/19/2023 11 :52 AM VEGETABLE PACKER documented as of this encounter Miscellaneous Notes * Telephone Encounter - Stefano Livingston MD - 11/20/2023 1:59 PM CDT I called Darius to review the results of her evaluation since her [facility] Consult here on 08/28/2023, which are summarized [...] MR PELVIS OVARY OR UTERUS WWO LOCATION: [facility] DATE: 09/04/2023 INDICATION: Pelvic Pain History Of [...] office for confirmation and dating US at [facility] at 11-12 weeks Early anatomy US at [...] 03/10/2024 10:15 AM CDT Office Visit [facility] Medicine [place] [address] [facility] [address] [place] [address] Esme Ramirez MD [address] [place] [address] 03/10/2024 11:[address] [facility] Medicine [facility] [address] [facility] [address] [place] [address] Esme Ramirez MD [address] [place] [address] 03/10/2024 11:30 AM CDT Office Visit [facility] Medicine [facility] [address] [facility] [address] [place] [address] Esme Ramirez MD [address] [place] [address] documented as of this encounter Visit Diagnoses Not on filedocumented in this encounter Care Teams Interior Design Professor Relationship Specialty Start Date End Date Raven Laguna MD [facility] [address] [place] [address] PCP - General speech assistant 04/23/23 Lamine Pizarro MD [address] [place] [address] Nephrology 04/23/23 documented as of this encounter
--- OUTSIDE RECORDS SUMMARY | 2024-02-05 09:17 | XMS_ITS | Clinical Summary ---
Author Organization [place] Address [address] [place] [address] Care Team Providers Care Firer Bisque Kiln Name Role Phone Lamine Pizarro MD Unavailable Raven Laguna MD Primary Care Provider [phone] Allergies No known active allergies Medications Medication [...] Department Care Team Description 01/28/2024 Transcribe Orders [facility] Maternal Medicine Center [place] [address] [facility] [address] [place] [address] Esme Aguirre MD related condition, antepartum (Primary Dx) 01/27/2024 Medical Correspondence [facility] Information Management [address] [facility] [address] [place] [address] Scan, Non-Provider MATERNAL MEDICINE [place] PROVIDER SERVICE REQUEST- OUTPATIENT 01/23/2024 Medical Correspondence [facility] Information Management [address] [facility] [address] [place] [address] Scan, Non-Provider 11/20/2023 Telephone [facility] Maternal Medicine [facility] [address] [place] [address] Stefano Livingston MD from Last 3 Months Social History Tobacco Use Types Packs/Day Years Used Date Smoking Tobacco: Former Cigarettes 0.5 2 Tobacco Cessation:Counseling Given: Not Answered Adolescent Education Answer Date Record ed Getting School Help Needed Not on file 04/22 Sex and Gender Information Value Date Recorded Sex Assigned at Female 06/19/2023 11:52 AM PMO PROJECT MANAGER Gender Identity Female 06/19/2023 11:52 AM PMO PROJECT MANAGER Sexual Orientation Straight 06/19/2023 11 :52 AM PMO PROJECT MANAGER Last Filed Vital Signs Vital Sign [...] Description 03/10/2024 10:15 AM CDT Office Visit [facility] Medicine [facility] [address] [facility] [address] [place] [address] Esme Ramirez MD [address] [place], [place] [address] 03/10/2024 11:00 AM CDT Appointment [facility] Medicine [facility] [address] [facility] [address] [place] [address] Esme Ramirez MD [address] [place], [place] [phone] 03/10/2024 11:30 AM CDT Office Visit [facility] Maternal Medicine [facility] [address] [facility] [address] [place] [address] Esme Ramirez MD [address] [place] [address] Health Maintenance Due Date Last Done Comments ADVANCE CARE PLANNING 1991 ANNUAL REVIEW OF HM ORDERS 1991 YEARLY PREVENTIVE VISIT 1991 HIV SCREENING 11/15/2006 HEPATITIS C SCREENING 11/15/2009 PAP 11/15/2012 HPV IMMUNIZATION (2 - 3-dose series) 12/20/2014 11/22/2014 PHQ-2 (once per calendar year) 2023 COVID-19 Vaccine ( season) 2024 INFLUENZA VACCINE (#1) 2024 DTAP/TDAP/TD [...] age to complete this topic Care Teams Firer Bisque Kiln Relationship Specialty Start Date End Date Raven Laguna MD [facility] [address] [place] [address] PCP - General district recruiter 04/23/23 Lamine Pizarro MD [address] [place] [address] Nephrology 04/23/23
== END 2024-02-05 09:12 | disposition home or self-care (01) ==
PROVIDERS: PCP Family Medicine; Visit Provider Obstetrics & Gynecology
DX: O10.911 Unspecified pre-existing hypertension complicating pregnancy, first trimester (principal); Z3A.10 10 weeks gestation of pregnancy; Z11.3 Encounter for screening for infections with a predominantly sexual mode of transmission
CPT/HCPCS: 84450; 84460; 87491; 87591

== ENCOUNTER 2024-02-17 09:43 | Outpatient (CLI) | payer MEDICAID, SELFPAY ==
--- OUTSIDE RECORDS SUMMARY | 2024-02-17 09:50 | XMS_ITS | Encounter Summary ---
Author Organization [place] Address [address] [place] [address]. [place] [address] Care Team Providers Care Recreation Technician Name Role Phone Lamine Pizarro MD Unavailable [phone] Raven Laguna MD Primary Care Provider [phone] Encounter Details Date Type Department Care Team (Late st Contact Info) Description 11/20/2023 Telephone [facility] M[facility] Medicine Center [place] [address] [place], [place] [address] Stefano Livingston MD [address] [place] [address] Social History Tobacco Use Types Packs/Day Years Used Date Smoking Tobacco: Former Cigarettes 0.5 2 Adolescent Education Answer Date Record ed Getting School Help Needed Not on file 04/22 Sex and Gender Information Value Date Recorded Sex Assigned at Female 06/19/2023 11:52 AM NOVELTY PRINTING MACHINE OPERATOR Gender Identity Female 06/19/2023 11:52 AM NOVELTY PRINTING MACHINE OPERATOR Sexual Orientation Straight 06/19/2023 11 :52 AM NOVELTY PRINTING MACHINE OPERATOR documented as of this encounter Miscellaneous Notes * Telephone Encounter - Stefano Livingston MD - 11/20/2023 1:59 PM CDT I called Darius to review the results of her evaluation since her [facility] Consult here on 08/28/2023, which are [...] MR PELVIS OVARY OR UTERUS WWO LOCATION: [facility] DATE: 09/04/2023 INDICATION: Pelvic Pain History [...] office for confirmation and dating US at [facility] at 11-12 weeks Early anatomy US [...] Description 03/10/2024 10:15 AM CDT Office Visit [facility] Medicine [place] [address] [facility] [address] [place] [address] Esme Ramirez MD [address] [place] [address] 03/10/2024 11:00 AM CDT Appointment [facility] Medicine [facility] [address] [facility] [address] [place] [address] Esme Ramirez MD [address] [place] [address] 03/10/2024 11:30 AM CDT Office Visit [facility] Medicine [facility] [address] [facility] [address] [place] [phone] Esme Ramirez MD [address] [place] [address] documented as of this encounter Visit Diagnoses Not on filedocumented in this encounter Care Teams Recreation Technician Relationship Specialty Start Date End Date Raven Laguna MD [facility] [address] [place] [address] PCP - General lapidarist 04/23/23 Lamine Pizarro MD [address] [place] [address] Nephrology 04/23/23 documented as of this encounter
--- OUTSIDE RECORDS SUMMARY | 2024-02-17 09:50 | XMS_ITS | Clinical Summary ---
Author Organization [place] Address [address] [place] [address] Care Team Providers Care Accounts Manager Name Role Phone Lamine Pizarro MD Unavailable [phone] Raven Laguna MD Primary Care Provider [phone] Allergies No known active allergies Medications Medication [...] Department Care Team Description 01/28/2024 Transcribe Orders [facility] Maternal Medicine Center [place] [address] [facility] [address] [place] [address] Esme Aguirre MD related condition, antepartum (Primary Dx) 01/27/2024 Medical Correspondence [facility] Information Management [address] [facility] [address] [place] [address] Scan, Non-Provider MATERNAL MEDICINE [place] PROVIDER SERVICE REQUEST- OUTPATIENT 01/23/2024 Medical Correspondence [facility] Information Management [address] [facility] [address] [place] [address] Scan, Non-Provider 11/20/2023 Telephone [facility] Maternal Medicine [facility] [address] [place] [address] Stefano Livingston MD from Last 3 Months Social History Tobacco Use Types Packs/Day Years Used Date Smoking Tobacco: Former Cigarettes 0.5 2 Tobacco Cessation:Counseling Given: Not Answered Adolescent Education Answer Date Record ed Getting School Help Needed Not on file 04/22 Sex and Gender Information Value Date Recorded Sex Assigned at Female 06/19/2023 11:52 AM FUSION JUNCTURE GRINDER Gender Identity Female 06/19/2023 11:52 AM FUSION JUNCTURE GRINDER Sexual Orientation Straight 06/19/2023 11 :52 AM FUSION JUNCTURE GRINDER Last Filed Vital Signs Vital Sign Reading [...] Description 03/10/2024 10:15 AM CDT Office Visit [facility] Medicine [facility] [address] [facility] [address] [place] [address] Esme Ramirez MD [address] [place], [place] [address] 03/10/2024 11:00 AM CDT Appointment [facility] Medicine [facility] [address] [facility] [address] [place] [address] Esme Ramirez MD [address] [place], [place] [phone] 03/10/2024 11:30 AM CDT Office Visit [facility] Maternal Medicine [facility] [address] [place] [address] Esme Ramirez MD [address] [place] [address] Health Maintenance Due Date Last Done Comments ADVANCE CARE PLANNING 1991 ANNUAL REVIEW OF HM ORDERS 1991 YEARLY PREVENTIVE VISIT 1991 HIV SCREENING 11/15/2006 HEPATITIS C SCREENING 11/15/2009 PAP 11/15/2012 HPV IMMUNIZATION (2 - 3-dose series) 12/20/2014 11/22/2014 PHQ-2 (once per calendar year) 2023 COVID-19 Vaccine ( season) 2024 INFLUENZA VACCINE (#1) 2024 BMP 08/27/2024 08/28/2023, 06/30/2009 DTAP/TDAP/TD IMMUNIZATION (8 - Td or Tdap) [...] Procedure Name Priority Date/Time Associated Diagnosis Comments COMPREHENSIVE METABOLIC PANEL Routine 08/28/2023 3:18 PM CDT History of demise, not currently from Last 3 Months or Most Recently Relevant to Health Maintenance Results * Comprehensive metabolic panel (08/28/2023 3:18 PM [...] LAB - BLOOD ORDERABL ES UR LABORATORY [facility] Acute Care Lab [address] [facility] [place] [address] from Last 3 Months or Most Recently Relevant to Health Maintenance Care Teams Accounts Manager Relationship Specialty Start Date End Date Raven Laguna MD [facility] [address] [place] [address] PCP - General legal biller 04/23/23 Lamine Pizarro MD [address] [place] [address] Nephrology 04/23/23
--- OUTSIDE RECORDS SUMMARY | 2024-02-17 09:50 | XMS_ITS | Clinical Summary ---
Author Organization [facility] Address [place], [place] [address] Care Team Providers Care Dial Polisher Name Role Phone Jyoti Cope DO Primary Care Provider [phone] Allergies Active Allergy Reactions Criticality Noted Date Comments Sulfa (Sulfonamide Antibiotics) *Unknown Unknown 06/27 Medications Medication Sig Dispensed Refills Start Date End Date Status Glepyvhy-Ov-Mtj-Fe-FA tab tablet Take 1 Tablet by mouth [...] Description 12/30/2023 11:00 AM CDT Orders Only [facility] [address] [place] [address] Lab, [place] Lab 12/30/2023 7:40 AM CDT E-Visit [facility] [address] [place] [address] AnatoliySiri Renetta, DO eVisit for Urinary Tract Infection 12/30/2023 Travel 12/03/2023 Orders Only [facility] Scanner 1 scan: (1-Ord) TAREEN [...] SCAN-OPERATIVE/PROCE DURE REPORT 12/03/2023 12:00 AM CDT FITNESS INSTRUCTOR THIN PREP PAP SCREEN IMAGED Routine 03/12/2019 3:17 PM CDT Routine general medical examination at health care facility Screening for malignant neoplasm of cervix from Last 3 Months or Most Recently Relevant to Health Maintenance Results * URINALYSIS MICROSCOPIC (12/30/2023 9:10 AM CDT) RBC None Seen 0-2, None Seen /HPF 12/30/2023 9:20 AM CDT [facility] WBC 3-5 0-2, 3-5, None Seen /HPF 12/30/2023 9:20 AM CDT [facility] BACTERIA Few None Seen, Rare, Few Bacteria/ HPF 12/30/2023 9:20 AM CDT [facility] EPITHELIAL CELLS Few None Seen, Few Epi/HPF 12/30/2023 9:20 AM CDT [facility] Urine URINE SPECIMEN / Unknown Non-Blood / Unknown 12/30/2023 9:10 AM CDT 12/30/2023 9:10 AM CDT Jyoti Cope DO URINE [facility] [address] [place] [address], * (ABNORMAL) URINE CULTURE (12/30/2023 9:10 AM CDT) CULTURE RESULT(A) 01/01/2024 11:05 AM CDT [facility] CULTURE >100,000 CFU/mL Escherichia coli 01/01/2024 11:05 AM CDT [facility] Urine URINE SPECIMEN / Unknown [...] MICROBIOLOGY [facility] [address] [place] [address], [place] * (ABNORMAL) UA W/ SEDIMENT EXAM REFLEXED PER CRITERIA (12/30/2023 9:10 AM CDT) COLOR Yellow Yellow Color 12/30/2023 9:19 AM CDT [facility] CLARITY Clear Clear Clarity 12/30/2023 9:19 AM CDT [facility] SPECIFIC GRAVITY,URINE 1.010 1.010, 1.015, 1.020, 1.025 12/30/2023 9:19 AM CDT [facility] PH,URINE 7.0 6.0, 7.0, 8.0, 5.5, 6.5, 7.5, 8.5 12/30/2023 9:19 AM CDT [facility] UROBILINOGEN, QUALITATIVE Normal Normal EU/dl 12/30/2023 9:19 AM CDT [facility] PROTEIN, URINE Negative Negative mg/dL 12/30/2023 9:19 AM CDT [facility] GLUCOSE, URINE Negative Negative mg/dL 12/30/2023 9:19 AM CDT [facility] KETONES,URINE Negative Negative mg/dL 12/30/2023 9:19 AM CDT [facility] BILIRUBIN,URI NE Negative Negative 12/30/2023 9:19 AM CDT [facility] OCCULT BLOOD,URINE Negative Negative 12/30/2023 9:19 AM CDT [facility] NITRITE Positive(A) Negative 12/30/2023 9:19 AM CDT [facility] LEUKOCYTE ESTERASE Trace(A) Negative 12/30/2023 9:19 AM CDT [facility] Urine URINE SPECIMEN / Unknown Non-Blood / Unknown 12/30/2023 9:10 AM CDT 12/30/2023 9:10 AM CDT Jyoti Cope DO URINE [facility] [address] [place] [address], [place] [phone] * SCAN-OPERATIVE/PROCEDURE REPORT (12/03/2023 12:00 AM CDT) Scanner OTHER * FITNESS INSTRUCTOR THIN PREP PAP SCREEN IMAGED (03/12/2019 3:17 PM CDT) Case Report Gynecologic Cytology Report ? Case: [id number] ? Authorizing Provider: ??Roslyn Bentley MD ? Collected: ? 03/12/2019 1517 ? Ordering Location: ? [facility] ?Received: ?03/12/2019 1518 ? Clinic ? First Screen: ?Orin Mancuso ? Specimen: ?FITNESS INSTRUCTOR ThinPrep Vial Screening, Cervical ? 03/23/2019 10:42 AM CDT [facility]OR[facility]-C ENTRAL LABORATORY INTERPRETATION/ RESULT NEGATIVE FOR INTRAEPITHELIAL LESION OR MALIGNANCY (NIL) (none) 03/23/2019 10:42 AM CDT [facility] IMEN ADEQUACY Satisfactory for evaluation Endocervical component present 03/23/2019 10:42 AM CDT [facility] HPV REQUEST HPV if ASCUS 03/23/2019 10:42 AM CDT [facility] Date of LMP 02/19/2019 03/23/2019 10:42 AM CDT [facility] Last Pap Date at least 5 years ago 03/23/2019 10:42 AM CDT [facility] Last Pap Result First Pap/Unknown 10:42 AM CDT [facility] LAB[facility]ORY Abnormal Pap or [place] Bx in last 5 years No 03/23/2019 10:42 AM CDT [facility] Menstrual Status Regular Periods 03/23/2019 10:42 AM CDT [facility] [place] Bx Done Today No 03/23/2019 10:42 AM CDT [facility] Additional Information None given 03/23/2019 10:42 AM CDT [facility] Automated Review Successful 03/23/2019 10:42 AM CDT [facility] Comment:Specimen processed s uccessfully by automated photographic hand developer device, ThinPrep Imaging System, [employer] Note The pap test is a [...] lesions. Cytology is screened and interpreted at [facility], Central Laboratory - [address], [place] [address] and [facility] - [address] [place] [address]; [place] [address] and [facility] - [address]; [place] [address] and [facility] [address]; [place] [address] 03/23/2019 10:42 AM CDT [facility] LABORAT[facility]-C ENTRAL LABORATORY Other (Cervical) Non-Blood / Unknown 03/12/2019 3:17 PM CDT 03/12/2019 3:18 PM CDT Roslyn Bentley MD PATHOLOGY/CYTOLOGY [facility]OR[facility]-CENTRAL LABORATORY [address] [place] [address], from Last 3 Months or Most Recently Relevant to Health Maintenance Care Teams Dial Polisher Relationship Specialty Start Date End Date Jyoti Cope DO [address] [place] [address] PCP - General Family Practice 01/08/23
--- OUTSIDE RECORDS SUMMARY | 2024-02-17 09:50 | XMS_ITS | Referral Summary ---
Author Organization [place] Address [address] [place] [address]. [place] [address] Care Team Providers Care Art Historian Name Role Phone Lamine Pizarro MD Unavailable [phone] Raven Laguna MD Primary Care Provider [phone] Encounters Date Type Department Care Team Description 01/28/2024 Transcribe Orders [facility] [address] [facility] [address] [place] [address] Esme Aguirre MD related condition, antepartum (Primary Dx) 01/27/2024 Medical Correspondence [address] [place] [address] Scan, Non-Provider [facility] MEDICINE [place] PROVIDER SERVICE REQUEST- OUTPATIENT 01/23/2024 Medical Correspondence [address] [place] [address] Scan, Non-Provider 11/20/2023 Telephone [facility] Maternal Medicine [address] [address] Stefano Livingston MD from Last 3 Months [...] Sex Assigned at Female 06/19/2023 11:52 AM RN NEUROSURGICAL Gender Identity Female 06/19/2023 11:52 AM RN NEUROSURGICAL Sexual Orientation Straight 06/19/2023 11 :52 AM RN NEUROSURGICAL Last Filed Vital Signs Vital Sign Reading [...] AM CDT Office Visit [facility] [address] [facility] [address] [place] [phone] Esme Ramirez MD [address] [place], [place] [phone] 03/10/2024 11:00 AM CDT Appointment [facility] [address] [address] [place] [address] Esme Ramirez MD [address] [place] [phone] 03/10/2024 11:30 AM CDT Office Visit [facility] M[facility] [place] [address] [place] [address] Esme Ramirez MD [address] [place] [address] Procedures Procedure Name Priority Date/Time Associated Diagnosis [...] & [facility] Acute Care Lab [address] [facility] [place] [address], [facility] from Last 3 Months or Most Recently Relevant to Health Maintenance Care Teams Art Historian Relationship Specialty Start Date End Date Raven Laguna MD [facility] [address] [address] PCP - General systems development manager 04/23/23 Lamine Pizarro MD [address] [place] [address] Nephrology 04/23/23
--- OUTSIDE RECORDS SUMMARY | 2024-02-17 09:50 | XMS_ITS | Encounter Summary ---
Author Organization [place] Address [address] [place] [address]. [place] [address] Care Team Providers Care Editor Managing Newspaper Name Role Phone Lamine Pizarro MD Unavailable [phone] Raven Laguna MD Primary Care Provider [phone] Encounter Details Date Type Department Care Team (Late Contact Info) Description 01/23/2024 Medical Correspondence [facility] Information Management [address] [facility] [address] [place] [address] Scan, Non-Provider Social History Tobacco Use Types Packs/Day Years Used Date Smoking Tobacco: Former Cigarettes 0.5 2 Adolescent Education Answer Date Record ed Getting School Help Needed Not on file 04/22 Sex and Gender Information Value Date Recorded Sex Assigned at Female 06/19/2023 11:52 AM CLINICAL DENTAL TECHNICIAN Gender Identity Female 06/19/2023 11:52 AM CLINICAL DENTAL TECHNICIAN Sexual Orientation Straight 06/19/2023 11 :52 AM CLINICAL DENTAL TECHNICIAN documented as of this encounter Plan of Treatment Upcoming Encounters Date Type Department Care Team (Late Contact Info) Description 03/10/2024 10:15 AM CDT Office Visit [facility] Maternal Medicine [facility] [address] [facility] [address] [place] [address] Esme Ramirez MD [address] [place] [address] 03/10/2024 11:00 AM CDT Appointment [facility] Maternal Medicine [facility] [address] [facility] [address] [place] [address] Esme Ramirez MD [address] [place] [address] 03/10/2024 11:30 AM CDT Office Visit [facility] Maternal Medicine [facility] [address] [facility] [address] [place] [address] Esme Ramirez MD [address] [place] [address] documented as of this encounter Visit Diagnoses Not on filedocumented in this encounter Care Teams Editor Managing Newspaper Relationship Specialty Start Date End Date Raven Laguna MD [address] [address] PCP - General potato pancake frier 04/23/23 Lamine Pizarro MD [address] [place] [address] Nephrology 04/23/23 documented as of this encounter
--- OUTSIDE RECORDS SUMMARY | 2024-02-17 09:50 | XMS_ITS | Encounter Summary ---
Author Organization [place] Address [address] [place] [address]. [place] [address] Care Team Providers Care Ssrs Report Developer Name Role Phone Lamine Pizarro MD Unavailable [phone] Raven Laguna MD Primary Care Provider [phone] Encounter Details Date Type Department Care Team ([facility] Contact Info) Description 10/27/2023 Medical Correspondence [facility] [address] [place] [phone] Scan, Non-Provider Social History Tobacco Use Types Packs/Day Years Used Date Smoking Tobacco: Former Cigarettes 0.5 2 Adolescent Education Answer Date Record ed Getting School Help Needed Not on file 04/22 Sex and Gender Information Value Date Recorded Sex Assigned at Female 06/19/2023 11:52 AM UNIX ARCHITECT Gender Identity Female 06/19/2023 11:52 AM UNIX ARCHITECT Sexual Orientation Straight 06/19/2023 11 :52 AM UNIX ARCHITECT documented as of this encounter Plan of Treatment Upcoming Encounters Date Type Department Care Team ([facility] Contact Info) Description 03/10/2024 10:15 AM CDT Office Visit [facility] Maternal Medicine [facility] [address] [place] [phone] Esme Ramirez MD [address] [place] [address] 03/10/2024 11:00 AM CDT Appointment [facility] Maternal Medicine [facility] [address] [place] [address] Esme Ramirez MD [address] [place] [address] 03/10/2024 11:30 AM CDT Office Visit [facility] Maternal Medicine [facility] [address] [place] [address] Esme Ramirez MD [address] [place] [address] documented as of this encounter Visit Diagnoses Not on filedocumented in this encounter Care Teams Ssrs Report Developer Relationship Specialty Start Date End Date Raven Laguna MD [address] [address] PCP - General supervisor shop 04/23/23 Lamine Pizarro MD [address] [place] [address] Nephrology 04/23/23 documented as of this encounter
--- OUTSIDE RECORDS SUMMARY | 2024-02-17 09:50 | XMS_ITS | Encounter Summary ---
Author Organization [place] Address [address] [place] [address] Care Team Providers Care Platemaker Name Role Phone Lamine Pizarro MD Unavailable [phone] Raven Laguna MD Primary Care Provider [phone] Reason for Referral * Diagnostic Imaging Ultrasound (Routine) - Pending Review Specialty Diagnoses / Procedures Referred By Contac t Referred To Contact Radiology. Diagnoses related condition, antepartum Procedures MFM US OB Complete 2/3 Tri Single Esme Ramirez MD [address] [place] [address] Referral ID Status Reason Start Date Expiration Date V isits Requested Visits Authorized [id number] Pending Review 01/28/2024 01/27/2025 1 1 * Consultation (Routine: Next available opening) - Pending Review Specialty Diagnoses / Procedures Referred By Contac t Referred To Contact Diagnoses related condition, antepartum Esme Ramirez MD [address] [place] [address] Referral ID Status Reason Start Date Expiration Date V isits Requested Visits Authorized [id number] Pending Review 01/28/2024 01/27/2025 1 1 Comments HX of IUFD, chronic hypertension * Consultation (Routine) - Pending Review Specialty Diagnoses / Procedures Referred By Kevin t Referred To Contact Diagnoses related condition, antepartum Esme Ramirez MD [address] [place] [address] [facility]aternal [facility] [address] [place] [address] Referral ID Status Reason Start Date Expiration Date V isits Requested Visits Authorized [id number] Pending Review 01/28/2024 01/27/2025 1 1 Question Answer MFM Consultation (unrelated to Ultrasound findings) No Genetic Counseling Consultation: No fax [facility] Esme Garcia [phone] Ultrasound Complete US (14-17.6 weeks GA) US PROC NONE Preferred Location: [facility] RODGER 08/31/2024 MFM Issue OTHER (enter details [...] (Latest Contact Info) Description 01/28/2024 Transcribe Orders [facility] [place] [address] [facility] [address] [place] [address] Esme Ramirez MD [address] [place] [address] related condition, antepartum (Primary Dx) Social History Tobacco Use Types Packs/Day Years Used Date Smoking Tobacco: Former Cigarettes 0.5 2 Adolescent Education Answer Date Record ed Getting School Help Needed Not on file 04/22 Sex and Gender Information Value Date Recorded Sex Assigned at Female 06/19/2023 11:52 AM BUSINESS MACHINE OPERATOR Gender Identity Female 06/19/2023 11:52 AM BUSINESS MACHINE OPERATOR Sexual Orientation Straight 06/19/2023 11 :52 AM BUSINESS MACHINE OPERATOR documented as of this encounter Plan of Treatment Upcoming Encounters Date Type Department Care Team (Late st Contact Info) Description 03/10/2024 10:15 AM CDT Office Visit [facility] Maternal Medicine [place] [address] [place] [phone] Esme Ramirez MD [address] [place] [address] 03/10/2024 11:00 AM CDT Appointment [facility] Maternal Medicine [place] [address] [place] [address] Esme Ramirez MD [address] [place] [address] 03/10/2024 11:30 AM CDT Office Visit [facility] Medicine [place] [address] [place] [phone] Esme Ramirez MD [address] [place] [address] Scheduled Orders Name Type Priority Associated Diagnoses Orde r Schedule [facility] US OB Complete 2/3 Tri Single Imaging Routine related condition, antepartum Expected: 03/09/2024 (Approximate), Expires: 11/26/2024 Scheduled Referrals Name Type Priority Associated Diagnoses Orde r Schedule [facility] Referral - Referral Routine related condition, antepartum Expected: 03/09/2024 (Approximate), Expires: 07/26/2024 [facility] Genetic Counseling Referral Routine: Next available opening related condition, antepartum Expected: 03/09/2024 (Approximate), Expires: 01/27/2025 documented as of this encounter Visit Diagnoses Diagnosis related condition, antepartum- Primary documented in this encounter Care Teams Platemaker Relationship Specialty Start Date End Date Raven Laguna MD [facility] [address] [place] [address] PCP - General levelman 04/23/23 Lamine Pizarro MD [address] [place] [address] Nephrology 04/23/23 documented as of this encounter
--- OUTSIDE RECORDS SUMMARY | 2024-02-17 09:50 | XMS_ITS | Encounter Summary ---
Author Organization [place] Address [address] [place] [address]. [place] [address] Care Team Providers Care Overage Shortage And Damage Clerk Name Role Phone Lamine Pizarro MD Unavailable [phone] Raven Laguna MD Primary Care Provider [phone] Encounter Details Date Type Department Care Team (Latest Contact Info) Description 01/27/2024 Medical Correspondence [facility] Information Management [address] [place] [address] Scan, Non-Provider [facility] PROVIDER SERVICE REQUEST- OUTPATIENT Social History Tobacco Use Types Packs/Day Years Used Date Smoking Tobacco: Former Cigarettes 0.5 2 Adolescent Education Answer Date Record ed Getting School Help Needed Not on file 04/22 Sex and Gender Information Value Date Recorded Sex Assigned at Female 06/19/2023 11:52 AM EXTENSION CLERK Gender Identity Female 06/19/2023 11:52 AM EXTENSION CLERK Sexual Orientation Straight 06/19/2023 11 :52 AM EXTENSION CLERK documented as of this encounter Plan of Treatment Upcoming Encounters Date Type Department Care Team (Late st Contact Info) Description 03/10/2024 10:15 AM CDT Office Visit [facility] Maternal Medicine [facility] [address] [place] [phone] Esme Ramirez MD [address] [place] [address] 03/10/2024 11:00 AM CDT Appointment [facility] Medicine [facility] [address] [place] [address] Esme Ramirez MD [address] [place] [address] 03/10/2024 11:30 AM CDT Office Visit [facility] Maternal Medicine [facility] [address] [place] [address] Esme Ramirez MD [address] [place] [address] documented as of this encounter Visit Diagnoses Not on filedocumented in this encounter Care Teams Overage Shortage And Damage Clerk Relationship Specialty Start Date End Date Raven Laguna MD [address] [address] PCP - General executive cyber leader 04/23/23 Lamine Pizarro MD [address] [place] [address] Nephrology 04/23/23 documented as of this encounter
[2024-02-19] LABS: HPV Source Cervical; HPV, High Risk by TMA Not Detected
== END 2024-02-17 09:44 | disposition home or self-care (01) ==
PROVIDERS: PCP Family Medicine; Visit Provider Obstetrics & Gynecology
DX: Z12.4 Encounter for screening for malignant neoplasm of cervix (principal)
CPT/HCPCS: 87624; 87625; 88141; 88142

== ENCOUNTER 2024-03-24 16:03 | Outpatient (CLI) | payer BC, SELFPAY ==
[2024-03-24] VITALS (11 sets, daily range): BP systolic 108–128; BP diastolic 57–71; PULSE 80–114; RESP 16; TEMP 36.6–36.8; O2SAT 100
[2024-03-24 16:34] LABS: Basophils Absolute Auto 0.03 K/uL (0.00-0.30); Basophils Percent Auto 0.4 % (0.0-3.0); Eosinophils Percent Auto 2.3 % (0.0-7.0); Hematocrit 36.3 % (33.0-51.0); Hemoglobin* 12.3 gm/dL (12.0-16.0); Immature Granulocytes Abs Auto 0.01 K/uL (0.00-0.30); Immature Granulocytes Pct Auto 0.1 %; Lymphocytes Absolute Auto 1.79 K/uL (0.90-2.90); Lymphocytes Percent Auto 20.9 % (20-44); Mean Corpuscular HGB Conc 34 gm/dL (32-36); Mean Corpuscular Hemoglobin 28 pg (26-34); Mean Corpuscular Volume 83 fL (80-100); Monocytes Percent Auto 5.8 % (0.0-11.0); Neutrophils Absolute Auto 6.03 K/uL (1.7-7.0); Neutrophils Percent Auto 70.5 % (42.0-72.0); Platelet Count* 189 K/uL (140-440); RDW Coefficient of Variation % 12.7 % (11.5-15.5); Red Blood Count 4.39 m/uL (4.00-5.20); White Blood Count* 8.56 K/uL (4.50-11.00)
[2024-03-24 16:45] LABS: Slide Review Reflex No
[2024-03-24 16:47] LABS: Chloride* 103 mmol/L (96-114)
[2024-03-24 16:48] LABS: Albumin* 4.3 g/dL (3.3-5.0); Potassium* 3.9 mmol/L (3.6-5.1); Sodium* 134 mmol/L (135-149)
[2024-03-24 16:51] LABS: Alanine Aminotransferase* 10 U/L (4-35); Alkaline Phosphatase* 47 U/L (40-150); Anion Gap 9 mEq/L (7-15); Aspartate Amino Transferase* 17 U/L (12-35); Bilirubin Total* 0.2 mg/dL (0.1-1.5); Blood Urea Nitrogen* 12 mg/dL (5-24); Calcium* 9.6 mg/dL (8.4-10.6); Carbon Dioxide* 22 mmol/L (20-32); Creatinine* 0.6 mg/dL (0.5-1.5); Estimated Glomerular Filt Rate 122 ml/min; Glucose* 96 mg/dL (60-115); Total Protein* 7.1 g/dL (6.0-8.3)
[2024-03-24 17:22] LABS: Total Protein Urine 15 mg/dL
[2024-03-24 17:24] LABS: Creatinine Urine 25.7 mg/dL; Protein Creatinine Ratio Urine 0.58 (0-0.19)
--- OUTSIDE RECORDS SUMMARY | 2024-03-24 19:18 | XMS_ITS | Referral Summary ---
Author Organization [place] Address [address] [place] [address] Care Team Providers Care Trailer Driver Name Role Phone Lamine Pizarro MD Unavailable [phone] Raven Laguna MD Primary Care Provider [phone] Encounters Date Type Department Care Team Description 03/19/2024 Telephone [facility] Maternal Medicine [facility] [address] [facility] [address] [place] [phone] Corina Clifton GC Results (Low risk NIPT (XY)) 03/10/2024 12:40 PM CDT Lab [facility] [address] [place] [phone] Lbiby Kaye MD related condition, antepartum; History of IUFD; , supervision, high-risk, second trimester 03/10/2024 Travel 03/10/2024 11:30 AM CDT Office Visit [facility] Maternal Medicine [facility] [address] [facility] [address] [address] [place] [phone] Libby Kaye MD History of IUFD (Primary Dx); Chronic hypertension affecting 03/10/2024 10:07 AM CDT - 03/10/2024 11:59 PM CDT Hospital Encounter [facility] Medicine [facility] [address] [facility] [address] [place] [phone] Libby Kaye MD related condition, antepartum Discharge Disposition: Home or Self Care 03/10/2024 10:15 AM CDT Office Visit [facility] [address] [facility] [address] [address] [place] [phone] Libby Kaye MD [employer], Mariah, GC History of IUFD (Primary Dx); related condition, antepartum; , supervision, high-risk, second trimester 03/09/2024 Travel 03/05/2024 Travel 03/02/2024 PRE VISIT [facility] Medicine [facility] [address] [facility] [address] [address] [place] [address] Silvia Narvaez RN Genetic Counseling (Hx IUFD, CHTN); Ultrasound (2/3 complete-hx IUFD, CHTN) 01/28/2024 Transcribe Orders [place] [address] [facility] [address] [address] [place] [phone] Esme Aguirre MD related condition, antepartum (Primary Dx) 01/27/2024 Medical Correspondence [address] [place] [address] Scan, Non-Provider [facility] PROVIDER SERVICE REQUEST- OUTPATIENT 01/23/2024 Medical Correspondence [address] [place] [address] Scan, Non-Provider from Last 3 Months Allergies No known active allergies Medications VITAMIN C, CALCIUM ASCORBATE, PO Take 1 tablet by mouth daily Active MAGNESIUM GLYCINATE PO Take 1 tablet by mouth daily Active Multiple Vitamins-Mineral s (ZINC PO) Take 1 tablet by mouth [...] History of MRSA infection 07/27/2017 Depression 06/03/2012 Estimated Date of Delivery Comme nts Yes 08/31/2024 Based on last me nstrual period of 11/25/2023 Social History Tobacco Use Types Packs/Day Years Used Date Smoking Tobacco: Former Cigarettes 0.5 2 Tobacco Cessation:Counseling Given: Not Answered Adolescent Education Answer Date Record ed Getting School Help Needed Not on file 04/22 Estimated Date of Delivery Comme nts Yes 08/31/2024 Based on last me nstrual period of 11/25/2023 Sex and Gender Information Value Date Recorded Sex Assigned at Female 06/19/2023 11:52 AM FREIGHT MANAGER Legal Sex Female 5:06 AM FREIGHT MANAGER Gender Identity Female 06/19/2023 11:52 AM FREIGHT MANAGER Sexual Orientation Straight 06/19/2023 11 :52 AM FREIGHT MANAGER Last Filed Vital Signs Vital Sign [...] Procedure Name Priority Date/Time Associated Diagnosis Comments [facility] NON-INVASIVE SCREENING PREQUEL Routine 03/10/2024 12:45 PM CDT related condition, antepartum History of IUFD , supervision, high-risk, second trimester MFM US OB COMPLETE 2/3 TRI SINGLE Routine 03/10/2024 12:13 PM CDT related condition, antepartum LAB RESULT - HIM SCAN 01/23/2024 12:00 AM CDT COMPREHENSIVE METABOLIC PANEL Routine 08/28/2023 3:18 PM CDT History of demise, not currently from Last 3 Months or Most Recently Relevant to Health Maintenance Results * [facility] Non-Invasive Screening???Prequel (03/10/2024 12:45 PM CDT) See Scanned Result [employer] NON-INVASIVE SCREENING PREQUEL-Scann ed 03/19/2024 9:56 AM CDT [facility] Blood STRUCTURE OF RIGHT UPPER LIMB / Unknown Venipuncture / Unknown 03/10/2024 12:45 PM CDT 03/10/2024 12:45 PM CDT us Corina Clifton LAB - BLOOD ORDERABLES Final R esult [facility] [address] [facility] [place] [address], [facility] [phone] * M US OB Complete 2/3 Tri Single (03/10/2024 12:13 PM CDT) Anatomical Region Laterality Modality Ultrasound 03/10/2024 11:1 4 AM CDT Impressions 03/10/2024 2:18 PM CDT IMPRESSION ----- 1. Morales at 14w 6d gestational age. 2. No anomalies commonly detected by ultrasound or soft markers of aneuploidy were identified in the anatomic survey within the limits of early ultrasound, however, some views were suboptimal as noted above. 3. Growth parameters and estimated weight were consistent with gestational age predicted by assigned RODGER. 4. The amniotic fluid volume appeared normal. 5. There is a low lying placenta. Narrative 03/10/2024 2:18 PM CDT ?2nd / 3rd Trim ----- Pat. Name: RABIA ETIENNE ? Study Date: ??03/10/2024 11:14am Pat. NO: ??[id number] ?Referring ??MD: ESME CASTILLO Site: ? Unit Educator: Garima Knutson RDMS : ??1990 ?Age: ?? 33 ----- INDICATION ----- History of IUFD. Chronic hypertension - no meds. METHOD ----- Transabdominal ultrasound examination. View: Suboptimal view: limited by position. Suboptimal view: limited by early gestational age. ----- Morales . Number of fetuses: 1 DATING ----- ? Date ?Details ?Gest. age ?RODGER LMP ?11/25/2023 ?Cycle: irregular cycle ?15 w + 1 d ? 08/31/2024 Previous U/S ?01/22/2024 ?GA, GA 8 w + 0 d ? 14 w + 6 d ? 09/02/2024 U/S ? 03/10/2024 ? based upon AC, BPD, Femur, HC ?15 w + 0 d ? 09/01/2024 Assigned dating ?based on ultrasound (GA), selected on 03/10/2024 ?14 w + 6 d ? 09/02/2024 GENERAL EVALUATION ----- Cardiac activity present. FHR 151 bpm. movements: visualized. Presentation: tranverse with head to maternal left. Placenta: Posterior, low lying Umbilical cord: 3 vessel cord Amniotic fluid: Amount of AF: normal. MVP 5.2 cm BIOMETRY ----- BPD ? 29.8 ?mm ? 15w 3d ?Keri FAIRBANKS ? 37.8 ?mm ? -/- ? Nicolaides HC ? 107.6 ?mm ? 15w 1d ? Hadlock Cerebellum tr ?14.4 ?mm ? 14w 3d ? Nicolaides AC ? 87.0 ?mm ? 15w 0d ? 58% ? Hadlock Femur ?15.3 ?mm ? 14w 4d ? Hadlock Humerus ? 15.0 ? mm ?14w 1d ?Stephany Weight Calculation: EFW ?107 ? g ? 32% ?Hadlock EFW (lb,oz) ?0 lb 4 ?oz EFW by ? Hadlock ([id number]) Head / Face / Neck Biometry: Senior Packaging Engineer ?5.0 ? mm CM ? 3.1 ? mm Nasal bone ? 3.4 ?mm ANATOMY ----- The following structures appear normal: Head / Neck ? Cranium. Head size. Head shape. Lateral ventricles. Choroid plexus. Midline falx. Cerebellum. Cisterna magna. Parenchyma. Thalami. ? Vermis. ? Neck. Face ? Profile. Nose. Maxilla. Mandible. Orbits. Lens. Heart / Thorax ?Situs. Aortic arch view. Bicaval view. Superior vena cava. Inferior vena cava. Cardiac position. Cardiac size. Cardiac rhythm. ? Right lung. Left lung. Diaphragm. Abdomen ? Abdom. wall. Cord insertion. Stomach. Bladder. Liver. Bowel. Spine ?Cervical spine. Thoracic spine. Extremities / Skeleton ?Arms. Right arm. Right hand. Left arm. Left hand. Legs. Right leg. Left leg. The following structures could not be adequately visualized: Head / Neck ? Cavum septi pellucidi. ? Nuchal fold. Face ? Lips. Heart / Thorax ?4-chamber view. RVOT view. LVOT view. 3-vessel view. 1-hxfgcw-yaztjse view. Ductal arch view. Abdomen ? Kidneys. Genitals. Spine ?Lumbar spine. Sacral spine. Extremities / Skeleton ?Right foot. Left foot. sex: male. MATERNAL STRUCTURES ----- Cervix ?Visualized ? Appearance: normal ? Approach - Transabdominal: Cervical length 35.2 mm Right Ovary ?Visualized Left Ovary ?Visualized RECOMMENDATION ----- Thank-you for referring your patient for an early anatomic ultrasound. She is planning cell free DNA today. I discussed the findings on today's ultrasound with the patient. I reviewed the limitations of ultrasound both in detecting aneuploidy and structural abnormalities. I discussed that the placenta appears low, however, this is a very common finding at this point in gestation. Will plan to reassess at time of survey. She had a preconception [facility] consult on 08/28/23. Patient is scheduled for a comprehensive survey at [facility] on 03/31. Following this recommend monthly growth ultrasounds starring at 24 weeks in addition to weekly testing starting at 32 weeks. Return to primary provider for continued care. If you have questions regarding today's evaluation or if we can be of further service, please contact the Maternal- Medicine Center. anomalies may be present but not detected I spent a total of 15 minutes on the date of this encounter including preparing to see the patient (reviewing medical records/tests), in direct ymyc-bb-ipum contact with the patient during her visit with the majority spent counseling and discussing the plan of care and documenting the visit in the electronic medical record. Please see note for details. Procedure Note Libby Kaye MD - 03/10/2024 / Trim ----- Pat. Name: ETIENNE LNAGE Study Date: 03/10/2024 11:14am Pat. NO: [id number] Referring MD: ESME CASTILLO Site: Unit Educator: Garima Knutson RDMS : 1990 Age: 33 ----- INDICATION ----- History of IUFD. Chronic hypertension - no meds. METHOD ----- Transabdominal ultrasound examination. View: Suboptimal view: limited byfetal position. Suboptimal view: limited by early gestational age. ----- Morales . Number of fetuses: 1 DATING ----- DateDetailsGest. age RODGER LMP 11/25/2023ycle: irregular cycle15 w + 1 d 08/31/2024 Previous U/S 01/22/2024 GA, GA8 w + 0 d14 w + 6 d 09/02/2024 U/S 03/10/2024ased upon AC, BPD, Femur, HC15 w + 0 d 09/01/2024 Assigned dating based on ultrasound (GA), selected on03/10/2024 14w + 6 d 09/02/2024 GENERAL EVALUATION ----- Cardiac activity present. FHR 151 bpm. movements: visualized.Presentation: tranverse with head to maternal left. Placenta: Posterior, low lying Umbilical cord: 3 vessel cord Amniotic fluid: Amount of AF: normal. MVP 5.2 cm BIOMETRY ----- BPD 29.8mm 15w 3dHadlock OFD 37.8mm -/-Nicolaides HC 107.6mm 15w 1dHadlock Cerebellum tr 14.4mm 14w 3dNicolaides AC 87.0mm 15w 0d 58%Hadlock Femur 15.3mm 14w 4dHadlock Humerus 15.0mm 14w 1dJeanty Weight Calculation: EFW 107g 32%Hadlock EFW (lb,oz) 0 lb 4oz EFW by Hadlock([id number]) Head / Face / Neck Biometry: Senior Packaging Engineer 5.0mm CM 3.1mm Nasal bone 3.4mm ANATOMY ----- The following structures appear normal: Head / Neck Cranium. Head size. Head shape.Lateral ventricles. Choroid plexus. Midline falx. Cerebellum. Cisternamagna. Parenchyma. Thalami. Vermis. Neck. Face Profile. Nose. Maxilla. Mandible.Orbits. Lens. Heart / Thorax Situs. Aortic arch view. Bicaval view.Superior vena cava. Inferior vena cava. Cardiac position. Cardiac size.Cardiac rhythm. Right lung. Left lung.Diaphragm. Abdomen Abdom. wall. Cord insertion. Stomach.Bladder. Liver. Bowel. Spine Cervical spine. Thoracic spine. Extremities / Skeleton Arms. Right arm. Right hand. Left arm.Left hand. Legs. Right leg. Left leg. The following structures could not be adequately visualized: Head / Neck Cavum septi pellucidi. Nuchal fold. Face Lips. Heart / Thorax 4-chamber view. RVOT view. LVOT view.3-vessel view. 5-mepkme-ccjraxe view. Ductal arch view. Abdomen Kidneys. Genitals. Spine Lumbar spine. Sacral spine. Extremities / Skeleton Right foot. Left foot. sex: male. MATERNAL STRUCTURES ----- Cervix Visualized Appearance: normal Approach - Transabdominal:Cervical length 35.2 mm Right Ovary Visualized Left Ovary Visualized RECOMMENDATION ----- Thank-you for referring your patient for an early anatomic ultrasound. Sheis planning cell free DNA today. I discussed the findings on today's ultrasound with the patient. Ireviewed the limitations of ultrasound both in detecting aneuploidy andstructural abnormalities. I discussed that the placenta appears low, however, this is a very common finding atthis point in gestation. Will plan to reassess at time of survey.She had a preconception MFM consult on 08/28/23. [facility] Following this recommend monthly growthultrasounds starring at 24 weeks in addition to weekly testing starting at 32 weeks. Return to primary provider for continued care. If you have questions regarding today's evaluation or if we can be offurther service, please contact the Maternal- Medicine Center. anomalies may be present but not detected I spent a total of 15 minutes on the date of this encounter includingpreparing to see the patient (reviewing medical records/tests), in qpwwxjbswt-vi-dvuv contact with the patient during her visit with the majority spent counseling and discussingthe plan of care and documenting the visit in the electronic medicalrecord. Please see note for details. IMPRESSION ----- 1. Morales at 14w 6d gestational age. 2. No anomalies commonly detected by ultrasound or soft markers ofaneuploidy were identified in the anatomic survey within the limitsof early ultrasound, however, some views were suboptimal as noted above. 3. Growth parameters and estimated weight were consistent withgestational age predicted by assigned RODGER. 4. The amniotic fluid volume appeared normal. 5. There is a low lying placenta. Esme Castillo MD [facility] ORDERABLE S Edited Result - Final * Lab Result - HIM Scan (01/23/2024 12:00 AM CDT) 01/23/2024 Provider Outside NON-BEAKER LAB TESTING Final Result * Comprehensive metabolic panel (08/28/2023 3:18 PM CDT) [facility] Sodium 142 135 - 145 mmol/L [...] 3:18 PM CDT 08/28/2023 3:46 PM CDT us Stefano Livingston MD LAB - BLOOD ORDERABLES Final Result [facility] [address] [place] [address] from Last 3 Months or Most Recently Relevant to Health Maintenance Insurance [employer] * Guarantor: Etienne Lange Account Type Relation to Patient Date of Phone Billing Address Personal/Family Self 1990 [id number] [place] [address] [employer] Care Teams Trailer Driver Relationship Specialty Start Date End Date Raven Laguna MD [facility] [address] [place] [address] PCP - General talent development coordinator 04/23/23 Lamine Pizarro MD [address] [place] [address] Nephrology 04/23/23
--- OUTSIDE RECORDS SUMMARY | 2024-03-24 19:18 | XMS_ITS | Encounter Summary ---
Author Organization [place] Address [address] [place] [address] Care Team Providers Care Gray Mixing Operator Name Role Phone Lamine Pizarro MD Unavailable [phone] Raven Laguna MD Primary Care Provider [phone] Encounter Details Date Type Department Care Team (Latest Contact Info) Description 01/27/2024 Medical Correspondence [facility] Information Management [address] [place] [address] [address] [place] [address] Scan, Non-Provider [facility] PROVIDER SERVICE REQUEST- OUTPATIENT Social History Tobacco Use Types Packs/Day Years Used Date Smoking Tobacco: Former Cigarettes 0.5 2 Adolescent Education Answer Date Record ed Getting School Help Needed Not on file 04/22 Comments No Sex and Gender Information Value Date Recorded Sex Assigned at Female 06/19/2023 11:52 AM SNUFF MAKER Legal Sex Female 5:06 AM SNUFF MAKER Gender Identity Female 06/19/2023 11:52 AM SNUFF MAKER Sexual Orientation Straight 06/19/2023 11 :52 AM SNUFF MAKER documented as of this encounter Plan of Treatment Not on file documented as of this encounter Visit Diagnoses Not on filedocumented in this encounter Care Teams Gray Mixing Operator Relationship Specialty Start Date End Date Raven Laguna MD [facility] [address] [place] [address] PCP - General sheet music salesperson 04/23/23 Lamine Pizarro MD [address] [place] [address] Nephrology 04/23/23 documented as of this encounter
--- OUTSIDE RECORDS SUMMARY | 2024-03-24 19:18 | XMS_ITS | Encounter Summary ---
Author Organization [place] Address [address] [place] [address] Care Team Providers Care Kitchen Food Assembler Name Role Phone Lamine Pizarro MD Unavailable [phone] Raven Laguna MD Primary Care Provider [phone] Encounter Details Date Type Department Care Team (Latest Contact Info) Description 03/09/2024 Travel Social History Tobacco Use Types Packs/Day Years Used Date Smoking Tobacco: Former Cigarettes 0.5 2 Adolescent Education Answer Date Record ed Getting School Help Needed Not on file 04/22 Estimated Date of Delivery Comme nts Yes 08/31/2024 Based on last me nstrual period of 11/25/2023 Sex and Gender Information Value Date Recorded Sex Assigned at Female 06/19/2023 11:52 AM FISH PROCESSOR Legal Sex Female 5:06 AM FISH PROCESSOR Gender Identity Female 06/19/2023 11:52 AM FISH PROCESSOR Sexual Orientation Straight 06/19/2023 11 :52 AM FISH PROCESSOR documented as of this encounter Plan of Treatment Not on file documented as of this encounter Visit Diagnoses Not on filedocumented in this encounter Care Teams Kitchen Food Assembler Relationship Specialty Start Date End Date Raven Laguna MD [facility] [address] [place] [address] PCP - General bar assistant 04/23/23 Lamine Pizarro MD [address] [place] [address] Nephrology 04/23/23 documented as of this encounter
--- OUTSIDE RECORDS SUMMARY | 2024-03-24 19:18 | XMS_ITS | Encounter Summary ---
Author Organization [place] Address [address] [place] [address]. [place] [address] Care Team Providers Care Fence Post Cutter Name Role Phone Lamine Pizarro MD Unavailable [phone] Raven Laguna MD Primary Care Provider [phone] Reason for Visit * Reason Onset Date Comments Results 03/19/2024 Low risk NIPT (X Y) Encounter Details Date Type Department Care Team (Late st Contact Info) Description 03/19/2024 Telephone [facility] [place] [address] [facility] [address] [place] [address] Corina Clifton GC MATERNAL MEDICINE [address] [facility] [address] [place] [address] Results (Low risk NIPT (XY)) Social History Tobacco Use Types Packs/Day Years Used Date Smoking Tobacco: Former Cigarettes 0.5 2 Adolescent Education Answer Date Record ed Getting School Help Needed Not on file 04/22 Estimated Date of Delivery Comme nts Yes 08/31/2024 Based on last me nstrual period of 11/25/2023 Sex and Gender Information Value Date Recorded Sex Assigned at Female 06/19/2023 11:52 AM MANAGER HEAVY DUTY Legal Sex Female 5:06 AM MANAGER HEAVY DUTY Gender Identity Female 06/19/2023 11:52 AM MANAGER HEAVY DUTY Sexual Orientation Straight 06/19/2023 11 :52 AM MANAGER HEAVY DUTY documented as of this encounter Miscellaneous Notes * Telephone Encounter - Corina Clifton GC - 03/19/2024 11:08 AM CDT March 19, 2024 I spoke with Dariustabby Lange regarding her NIPT results. Results indicate NO ANEUPLOIDY DETECTED for chromosomes 21, 18, 13, or the sex chromosomes (XY). The screen also returned low risk for the screened microdeletion syndromes: 22q11.2 deletion, 15q11.2 deletion, 1p36 deletion, 4p, and 5p deletion syndromes. This puts her current at low risk for Down syndrome, trisomy 18, trisomy 13, sex chromosome abnormalities, and the screened microdeletion syndromes. This test is reported to have the following sensitivities: Down syndrome- >99.7%, trisomy 18- >97.9%, and trisomy 13- >99.0%. Although these results are reassuring, this does not replace a standard chromosome analysis from a chorionic villus sampling or amniocentesis. MSAFP is the appropriate second trimester screening test for open neural tube defects; the maternalquad screen is not recommended. Her results are available in her Epic chart for her primary OB to review. Corina Clifton MS, [facility] Certified and Licensed Genetic Counselor [facility]: [phone] [facility]: [phone] [facility] documented in this encounter Plan of Treatment Not on file documented as of this encounter Visit Diagnoses Not on filedocumented in this encounter Care Teams Fence Post Cutter Relationship Specialty Start Date End Date Raven Laguna MD [facility] [address] [place] [address] PCP - General surgeon assistant 04/23/23 Lamine Pizarro MD [address] [place] [address] Nephrology 04/23/23 documented as of this encounter
--- OUTSIDE RECORDS SUMMARY | 2024-03-24 19:18 | XMS_ITS | Clinical Summary ---
Author Organization [facility] Address [place], [place] [address] Care Team Providers Care Epic Cupid Specialists Name Role Phone Jyoti Cope DO Primary Care Provider [phone] Allergies Active Allergy Reactions Criticality Noted Date Comments Sulfa (Sulfonamide Antibiotics) *Unknown Unknown 06/27 Medications Medication Sig Dispensed Refills Start Date End Date Status Kmlwjymq-Oz-Bbp-Fe-FA tab tablet Take 1 Tablet by mouth [...] CDT Orders Only [facility] [address] [place] [address] Lab, [place] [facility] 12/30/2023 7:40 AM CDT E-Visit [facility] [address] [place] [address] Anatoliy Jyotiguy Jackson, DO eVisit for Urinary Tract Infection 12/30/2023 Travel from Last 3 Months Immunizations Name Administration [...] 0 08/27/2023 Social Connections Answer Date Recorded Do you often feel lonely or isolated from those around you? 0 08/27/2023 Financial Resource Strain Answer Date R ecorded Difficulty of Paying Living Expenses 3 08/27/2023 Difficulty of Paying Living Expenses Not on file 08/27/2023 Food Insecurity Answer Date Recorded Do you worry your food will run out before you are able to buy more? 1 08/27/2023 Transportation Needs Answer Date Record ed Does lack of transportation keep you from medica l appointments? 1 08/27/2023 Does lack of transportation keep you from work, meetings or getting things that you need? 1 08/27/2023 Housing Stability Answer Date Recorded What is your housing situation today? 1 08/27/2023 Sex and Gender Information Value [...] Routine 12/30/2023 9:10 AM CDT UTI symptoms SECURITY INTERN THIN PREP PAP SCREEN IMAGED Routine 03/12/2019 3:17 PM CDT Routine general medical examination at health care facility Screening for malignant neoplasm of cervix from Last 3 Months or Most Recently Relevant to Health Maintenance Results * URINALYSIS MICROSCOPIC (12/30/2023 9:10 AM CDT) RBC None Seen 0-2, None Seen /HPF 12/30/2023 9:20 AM CDT [facility] WBC 3-5 0-2, 3-5, None Seen /HPF 12/30/2023 9:20 AM CDT [facility] BACTERIA Few None Seen, Rare, Few Bacteria/ HPF 12/30/2023 9:20 AM CDT [facility] EPITHELIAL CELLS Few None Seen, Few Epi/HPF 12/30/2023 9:20 AM CDT [facility] Urine URINE SPECIMEN / Unknown Non-Blood / Unknown 12/30/2023 9:10 AM CDT 12/30/2023 9:10 AM CDT Jyoti Cope DO URINE [facility] [address] [place] [address], [place] [phone] * (ABNORMAL) URINE CULTURE (12/30/2023 9:10 AM CDT) CULTURE RESULT(A) 01/01/2024 11:05 AM CDT [facility] CULTURE >100,000 CFU/mL Escherichia coli 01/01/2024 11:05 AM CDT [facility] Urine URINE SPECIMEN / Unknown Non-Blood / Unknown 12/30/2023 9:10 AM CDT 12/30/2023 9:10 AM CDT Narrative Organism Antibiotic Method Susceptibility Escherichia coli TRIMETHOPRIM/SULF <=1/19: S Escherichia coli AMPICILLIN <=2: S Escherichia [...] S Escherichia coli NITROFURANTOIN <=16: S Jyoti Cope DO MICROBIOLOGY [facility] [address] [place] [address], [place] * (ABNORMAL) UA W/ SEDIMENT EXAM REFLEXED PER CRITERIA (12/30/2023 9:10 AM CDT) COLOR Yellow Yellow Color 12/30/2023 9:19 AM CDT [facility] CLARITY Clear Clear Clarity 12/30/2023 9:19 AM CDT [facility] SPECIFIC GRAVITY,URINE 1.010 1.010, 1.015, 1.020, 1.025 12/30/2023 9:19 AM CDT [facility] PH,URINE 7.0 6.0, 7.0, 8.0, 5.5, 6.5, 7.5, 8.5 12/30/2023 9:19 AM CDT [facility] UROBILINOGEN, QUALITATIVE Normal Normal EU/dl 12/30/2023 9:19 AM CDT [facility] PROTEIN, URINE Negative Negative mg/dL 12/30/2023 9:19 AM CDT [facility] GLUCOSE, URINE Negative Negative mg/dL 12/30/2023 9:19 AM CDT [facility] KETONES,URINE Negative Negative mg/dL 12/30/2023 9:19 AM CDT [facility] BILIRUBIN,URI NE Negative Negative 12/30/2023 9:19 AM CDT [facility] OCCULT BLOOD,URINE Negative Negative 12/30/2023 9:19 AM CDT [facility] NITRITE Positive(A) Negative 12/30/2023 9:19 AM CDT [facility] LEUKOCYTE ESTERASE Trace(A) Negative 12/30/2023 9:19 AM CDT [facility] Urine URINE SPECIMEN / Unknown Non-Blood / Unknown 12/30/2023 9:10 AM CDT 12/30/2023 9:10 AM CDT Jyoti Cope DO URINE [facility] [address] [place] [address], * SECURITY INTERN THIN PREP PAP SCREEN IMAGED (03/12/2019 3:17 PM CDT) Case Report Gynecologic Cytology Report ? Case: [id number] ? Authorizing Provider: ??Roslyn Bentley MD ? Collected: ? 03/12/2019 1517 ? Ordering Location: ? [facility] ?Received: ?03/12/2019 1518 ? Clinic ? First Screen: ?Orin Mancuso ? Specimen: ?SECURITY INTERN ThinPrep Vial Screening, Cervical ? 03/23/2019 10:42 AM CDT [facility] INTERPRETATION/ RESULT NEGATIVE FOR INTRAEPITHELIAL LESION OR MALIGNANCY (NIL) (none) 03/23/2019 10:42 AM [facility] ENTRAL LABORATORY IMEN ADEQUACY Satisfactory for evaluation Endocervical component present 03/23/2019 10:42 AM CDT [facility] ENTRAL LABORATORY HPV REQUEST HPV if ASCUS 03/23/2019 10:42 AM CDT [facility] Date of LMP 02/19/2019 03/23/2019 10:42 AM CDT [facility] Last Pap Date at least 5 years ago 03/23/2019 10:42 AM CDT [facility] ENTRAL LABORATORY Last Pap Result First Pap/Unknown 10:42 AM CDT [facility] Abnormal Pap or [place] Bx in last 5 years No 03/23/2019 10:42 AM CDT [facility] Menstrual Status Regular Periods 03/23/2019 10:42 AM CDT [facility] [place] Bx Done Today No 03/23/2019 10:42 AM CDT [facility] Additional Information None given 03/23/2019 10:42 AM CDT [facility] Automated Review Successful 03/23/2019 10:42 AM CDT [facility] Comment:Specimen processed s uccessfully by automated waterproof coating machine tender device, ThinPrep Imaging System, [employer] Note The pap test is a [...] lesions. Cytology is screened and interpreted at [facility], Central Laboratory - [address], [place] [address] and [facility] - [address]; [place] [address] and [facility] - [address]; [place] [address] and [facility] [address]; [place] [address] 03/23/2019 10:42 AM CDT [facility] Other (Cervical) Non-Blood / Unknown 03/12/2019 3:17 PM CDT 03/12/2019 3:18 PM CDT Roslyn Bentley MD PATHOLOGY/CYTOLOGY [facility]AL LAB[facility]ATORY [address] [place] [address], [place] from Last 3 Months or Most Recently Relevant to Health Maintenance Care Teams Epic Cupid Specialists Relationship Specialty Start Date End Date Jyoti Cope DO [address] [place] [address] PCP - General Family Practice 01/08/23
--- OUTSIDE RECORDS SUMMARY | 2024-03-24 19:18 | XMS_ITS | Encounter Summary ---
Author Organization [place] Address [address] [place] [address] Care Team Providers Care Environmental Monitoring Specialist Name Role Phone Lamine Pizarro MD Unavailable [phone] Raven Laguna MD Primary Care Provider [phone] Reason for Referral * Diagnostic Imaging Ultrasound (Routine) - Pending Review Specialty Diagnoses / Procedures Referred By Contac t Referred To Contact Radiology. Diagnoses related condition, antepartum Procedures MFM US OB Complete 2/3 Tri Single Esme Castillo MD [address] [place] [address] Phone: tel: fax: Referral ID Status Reason Start Date Expiration Date V isits Requested Visits Authorized [id number] Pending Review 01/28/2024 01/27/2025 1 1 Reason for Visit * Diagnostic Imaging Ultrasound (Routine) - Pending Review Specialty Diagnoses / Procedures Referred By Contac t Referred To Contact Radiology. Diagnoses related condition, antepartum Procedures MFM US OB Complete 2/3 Tri Single Esme Castillo MD [address] [place] [address] Phone: tel: fax: Referral ID Status Reason Start Date Expiration Date V isits Requested Visits Authorized [id number] Pending Review 01/28/2024 01/27/2025 1 1 Encounter Details Date Type Department Care Team (Latest Contact Info) Description 03/10/2024 10:07 AM CDT - 03/10/2024 11:59 PM CDT Hospital Encounter [facility] [place] [address] [facility] [address] [place] [address] Libby Kaye MD [address] [place] [address] [place] [address] related condition, antepartum Discharge Disposition: [...] Sex Assigned at Female 06/19/2023 11:52 AM JOINERY FACTORY WORKER Legal Sex Female 5:06 AM JOINERY FACTORY WORKER Gender Identity Female 06/19/2023 11:52 AM JOINERY FACTORY WORKER Sexual Orientation Straight 06/19/2023 11 :52 AM JOINERY FACTORY WORKER documented as of this encounter Medications at Time of Discharge LORazepam (ATIVAN PO) Take 1 tablet by [...] Procedure Name Priority Date/Time Associated Diagnosis Comments [facility] US OB COMPLETE 2/3 TRI SINGLE Routine 03/10/2024 12:13 PM CDT related condition, antepartum documented in this encounter Results * [facility] US OB Complete 2/3 Tri Single (03/10/2024 [...] lying placenta. Narrative 03/10/2024 2:18 PM CDT ? / Trim ----- Pat. Name: ETIENNE LANGE ? Study Date: ??03/10/2024 11:14am Pat. NO: ??[id number] ?Referring ??: ESME CASTILLO Site: ? Train Engineer: Garima Knutson RDMS : ??1990 ?Age: ?? [...] BPD ? 29.8 ?mm ? 15w 3d ?Hadlock OFD ? 37.8 ?mm ? -/- ? Nicolaides [...] lb 4 ?oz EFW by ? Hadlock ([id number]) Head / Face / Neck Biometry: Gear Grinding Machine Operator ?5.0 ? mm CM ? 3.1 ? [...] view. RVOT view. LVOT view. 3-vessel view. 6-lnievj-rcgjiei view. Ductal arch view. Abdomen ? Kidneys. [...] time of survey. She had a preconception [facility] consult on 08/28/23. Patient is scheduled for a comprehensive survey at [facility] on 03/31. Following this recommend monthly growth [...] the patient (reviewing medical records/tests), in direct ippd-lb-wbdm contact with the patient during her visit with the majority spent counseling and discussing the plan of care and documenting the visit in the electronic medical record. Please see note for details. Procedure Note Libby Kaye MD - 03/10/2024 / Trim ----- Pat. Name: ETIENNE LANGE Study Date: 03/10/2024 11:14am Pat. NO: [id number] Referring MD: ESME CASTILLO Site: Train Engineer: Garima Knutson RDMS : 1990 Age: 33 ----- INDICATION ----- History of IUFD. Chronic hypertension - no meds. METHOD ----- Transabdominal ultrasound examination. View: Suboptimal view: limited byfetal position. Suboptimal view: limited by early gestational age. ----- Morales . Number of fetuses: 1 DATING ----- DateDetailsGest. age RODGER LMP 4Cycle: irregular cycle15 w + 1 d 08/31/2024 [...] EFW (lb,oz) 0 lb 4oz EFW by Hadlock([id number]) Head / Face / Neck Biometry: Gear Grinding Machine Operator 5.0mm CM 3.1mm Nasal bone 3.4mm ANATOMY [...] 4-chamber view. RVOT view. LVOT view.3-vessel view. 8-dbnjho-mhnarxd view. Ductal arch view. Abdomen Kidneys. Genitals. [...] at time of survey.She had a preconception [facility] consult on 08/28/23. [facility] is [facility]. Following this recommend monthly growthultrasounds [...] see the patient (reviewing medical records/tests), in tfjhjrpqps-zw-gtdi contact with the patient during her visit [...] 5. There is a low lying placenta. us Esme Castillo MD [facility] US ORDERABLE S Edited Result - Final documented in this encounter Visit Diagnoses Diagnosis related condition, antepartum documented in this encounter Care Teams Environmental Monitoring Specialist Relationship Specialty Start Date End Date Raven Laguna MD [address] [address] PCP - General net developer contract 04/23/23 Lamine Pizarro MD [address] [place] [address] Nephrology 04/23/23 documented as of this encounter
--- OUTSIDE RECORDS SUMMARY | 2024-03-24 19:18 | XMS_ITS | Encounter Summary ---
Author Organization [place] Address [address] [place] [address]. [place] [address] Care Team Providers Care Mask Design Engineer Name Role Phone Lamine Pizarro MD Unavailable [phone] Raven Laguna MD Primary Care Provider [phone] Reason for Visit * Reason Comments Ultrasound L2-hx IUFD, CHTN Encounter Details Date Type Department Care Team (Late st Contact Info) Description 03/10/2024 11:30 AM CDT Office Visit [facility] [place] [address] [facility] [address] [place] [address] Libby Kaye MD [address] [facility] [address] [place] [address] History of IUFD (Primary Dx); Chronic hypertension affecting Social History Tobacco Use Types Packs/Day Years Used Date Smoking Tobacco: Former Cigarettes 0.5 2 Adolescent Education Answer Date Record ed Getting School Help Needed Not on file 04/22 Estimated Date of Delivery Comme nts Yes 08/31/2024 Based on last me nstrual period of 11/25/2023 Sex and Gender Information Value Date Recorded Sex Assigned at Female 06/19/2023 11:52 AM PHYSICIAN NON INVASIVE CARDIOLOGIST Legal Sex Female 5:06 AM PHYSICIAN NON INVASIVE CARDIOLOGIST Gender Identity Female 06/19/2023 11:52 AM PHYSICIAN NON INVASIVE CARDIOLOGIST Sexual Orientation Straight 06/19/2023 11 :52 AM PHYSICIAN NON INVASIVE CARDIOLOGIST documented as of this encounter Progress Notes * Libby Kaye MD - 03/10/2024 11:30 AM CDT Please see Imaging tab under Chart Review for details of today's visit. Libby Kaye documented in this encounter Nursing Notes * Silvia Narvaez, RN - 03/10/2024 11:30 AM CDT Darius presents to [facility] for 2/3 complete ultrasound due to history of IUFD and CHTN. Patient denies contractions, leaking of fluid, or bleeding. SBAR given to [facility] MD, see their note in Epic. documented in this encounter Plan of Treatment Not on file documented as of this encounter Visit Diagnoses Diagnosis History of IUFD- Primary Chronic hypertension affecting documented in this encounter Care Teams Mask Design Engineer Relationship Specialty Start Date End Date Raven Laguna MD [address] [address] PCP - General drug safety specialist 04/23/23 Lamine Pizarro MD [address] [place] [address] Nephrology 04/23/23 documented as of this encounter
--- OUTSIDE RECORDS SUMMARY | 2024-03-24 19:18 | XMS_ITS | Encounter Summary ---
Author Organization [facility] Address [address] [place] [address]. [place] [address] Care Team Providers Care Orange Peel Operator Name Role Phone Lamine Pizarro MD Unavailable [phone] Raven Laguna MD Primary Care Provider [phone] Encounter Details Date Type Department Care Team (Late st Contact Info) Description 03/10/2024 12:40 PM CDT Lab [facility] [address] [place] [id number] Libby Kaye MD [address] [facility] [address] [place] [address] related condition, antepartum; History of IUFD; , supervision, high-risk, second trimester Social History Tobacco Use Types Packs/Day Years Used Date Smoking Tobacco: Former Cigarettes 0.5 2 Adolescent Education Answer Date Record ed Getting School Help Needed Not on file 04/22 Estimated Date of Delivery Comme nts Yes 08/31/2024 Based on last me nstrual period of 11/25/2023 Sex and Gender Information Value Date Recorded Sex Assigned at Female 06/19/2023 11:52 AM RELATIONSHIP MGR Legal Sex Female 5:06 AM RELATIONSHIP MGR Gender Identity Female 06/19/2023 11:52 AM RELATIONSHIP MGR Sexual Orientation Straight 06/19/2023 11 :52 AM RELATIONSHIP MGR documented as of this encounter Plan of Treatment Not on file documented as of this encounter Procedures Procedure Name Priority Date/Time Associated Diagnosis Comments [facility] NON-INVASIVE SCREENING PREQUEL Routine 03/10/2024 12:45 PM CDT related condition, antepartum History of IUFD , supervision, high-risk, second trimester documented in this encounter Results * [facility] Non-Invasive Screening???Prequel (03/10/2024 12:45 PM CDT) See Scanned Result [facility] NON-INVASIVE SCREENING PREQUEL-Scann ed 03/19/2024 9:56 AM CDT [facility] Blood STRUCTURE OF RIGHT UPPER LIMB / Unknown Venipuncture / Unknown 03/10/2024 12:45 PM CDT 03/10/2024 12:45 PM CDT us Corina Clifton GC LAB - BLOOD ORDERABLES Final R esult [facility] [address] [place] [address], [facility] [phone] documented in this encounter Visit Diagnoses Diagnosis related condition, antepartum History of IUFD , supervision, high-risk, second trimester documented in this encounter Care Teams Orange Peel Operator Relationship Specialty Start Date End Date Raven Laguna MD [facility] [address] [place] [address] PCP - General test engineering manager 04/23/23 Lamine Pizarro MD [address] [place] [address] Nephrology 04/23/23 documented as of this encounter
--- OUTSIDE RECORDS SUMMARY | 2024-03-24 19:18 | XMS_ITS | Encounter Summary ---
Author Organization [place] Address [address] [place] [address]. [place] [address] Care Team Providers Care Pre Sales Network Engineer Name Role Phone Lamine Pizarro MD Unavailable [phone] Raven Laguna MD Primary Care Provider [phone] Reason for Visit * Reason Comments Genetic Counseling Hx IUFD, CHTN Ultrasound 2/3 complete-hx IUFD , CHTN Encounter Details Date Type Department Care Team (Late st Contact Info) Description 03/02/[address] [facility] [place] [address] [place] [address] Silvia Narvaez RN Genetic Counseling (Hx IUFD, CHTN); Ultrasound (2/3 complete-hx IUFD, CHTN) Social History Tobacco Use Types Packs/Day Years Used Date Smoking Tobacco: Former Cigarettes 0.5 2 Adolescent Education Answer Date Record ed Getting School Help Needed Not on file 04/22 Estimated Date of Delivery Comme nts Yes 08/31/2024 Based on last me nstrual period of 11/25/2023 Sex and Gender Information Value Date Recorded Sex Assigned at Female 06/19/2023 11:52 AM SUPERVISOR REACTOR FUELING Legal Sex Female 5:06 AM SUPERVISOR REACTOR FUELING Gender Identity Female 06/19/2023 11:52 AM SUPERVISOR REACTOR FUELING Sexual Orientation Straight 06/19/2023 11 :52 AM SUPERVISOR REACTOR FUELING documented as of this encounter Plan of Treatment Not on file documented as of this encounter Visit Diagnoses Not on filedocumented in this encounter Care Teams Pre Sales Network Engineer Relationship Specialty Start Date End Date Raven Laguna MD [facility] [address] [place] [address] PCP - General corrugated sheet material sheeter 04/23/23 Lamine Pizarro MD [address] [place] [address] Nephrology 04/23/23 documented as of this encounter
--- OUTSIDE RECORDS SUMMARY | 2024-03-24 19:18 | XMS_ITS | Encounter Summary ---
Author Organization [place] Address [address] [place] [address] Care Team Providers Care Director Of Transportation Name Role Phone Lamine Pizarro MD Unavailable [phone] Raven Laguna MD Primary Care Provider [phone] Encounter Details Date Type Department Care Team (Latest Contact Info) Description 03/05/2024 Travel Social History Tobacco Use Types Packs/Day Years Used Date Smoking Tobacco: Former Cigarettes 0.5 2 Adolescent Education Answer Date Record ed Getting School Help Needed Not on file 04/22 Estimated Date of Delivery Comme nts Yes 08/31/2024 Based on last me nstrual period of 11/25/2023 Sex and Gender Information Value Date Recorded Sex Assigned at Female 06/19/2023 11:52 AM SUPERVISORY LIFEGUARD Legal Sex Female 5:06 AM SUPERVISORY LIFEGUARD Gender Identity Female 06/19/2023 11:52 AM SUPERVISORY LIFEGUARD Sexual Orientation Straight 06/19/2023 11 :52 AM SUPERVISORY LIFEGUARD documented as of this encounter Plan of Treatment Not on file documented as of this encounter Visit Diagnoses Not on filedocumented in this encounter Care Teams Director Of Transportation Relationship Specialty Start Date End Date Raven Laguna MD [facility] [address] [place] [address] PCP - General tool design engineer 04/23/23 Lamine Pizarro MD [address] [place] [id number] Nephrology 04/23/23 documented as of this encounter
--- OUTSIDE RECORDS SUMMARY | 2024-03-24 19:18 | XMS_ITS | Encounter Summary ---
Author Organization [place] Address [address] [place] [address] Care Team Providers Care Mattress Filler Name Role Phone Lamine Pizarro MD Unavailable [phone] Raven Laguna MD Primary Care Provider [phone] Reason for Visit * Reason Comments Genetic Counseling * Consultation (Routine: Next available opening) - Pending Review Specialty Diagnoses / Procedures Referred By Kevin montalvo Referred To Contact Diagnoses related condition, antepartum Esme Ramirez MD [address] [place] [address] Phone: tel: fax: Referral ID Status Reason Start Date Expiration Date V isits Requested Visits Authorized [id number] Pending Review 01/28/2024 01/27/2025 1 1 Encounter Details Date Type Department Care Team (Late st Contact Info) Description 03/10/2024 10:15 AM CDT Office Visit [facility] [place] [address] [place] [address] Libby Kaye MD [address] [address] Corina Clifton GC MATERNAL MEDICINE [address] [facility], [address] [id number] History of IUFD (Primary Dx); related condition, antepartum; , supervision, high-risk, second trimester Social History [...] Sex Assigned at Female 06/19/2023 11:52 AM WELFARE INTERVIEWER Legal Sex Female 5:06 AM WELFARE INTERVIEWER Gender Identity Female 06/19/2023 11:52 AM WELFARE INTERVIEWER Sexual Orientation Straight 06/19/2023 11 :52 AM WELFARE INTERVIEWER documented as of this encounter Progress Notes * Corina Clifton, [place] - 03/10/2024 10:15 AM CDT [facility] Genetic Counseling Consult Patient: Darius Lange Preferred Name: Darius Date of : 1990 Date of Service: 03/10/24 Darius was seen at the [facility] for genetic consultation. The indication for genetic counseling is desire to discuss options for genetic screening and diagnostics and discuss the history of the IUFD in Darius's previous . The patient was accompanied to this visit by their Isaac. The session was conducted in [place]. IMPRESSION/ PLAN 1. Darius has not had genetic screening in this but elected to have screening today. 2. During today's [facility] visit, Darius had a blood draw for expanded non-invasive testing (also called NIPT, NIPS, or cell-free DNA) through [facility] (prequel). The expanded NIPT screens for trisomy 21, 18, and 13 and select microdeletion syndromes, including 22q11.2 deletion syndrome. The patient opted to screen for sex chromosome aneuploidies, including reported sex. Results are expected in 7-14 days. The patient will be called with results and if they do not answer they requesteda detailed message with results on their voicemail, including the predicted sex information. Patient was informed that results, including sex, will be available in [facility]. 3. Darius had a early second trimester anatomy ultrasound today. Please see the ultrasound reportfor further details. 5. Further recommendations include a anatomy level II ultrasound with [facility]. Darius reports this ultrasound has already been scheduled with a [facility] physician when they rotate to [facility]. HISTORY /Parity: Darius's history is significant for: 2021: delivery at 36w0d, c/s, due to PreE in addition to cHTN. Darius and Isaac report their 2 year old son, Malik is healthy a meeting appropriate developmental milestones. 06/2023: IUFD identified at 23w2d (measuring at 17w0d) complicated by severe growth restriction. POC testing (karyotype and chromosomal microarray) as well as infection studies were negative. autopsy showed no congenital anomalies, but noted a hypercoiled umbilical cord and focal narrowing of the cord insertion site. Darius and Isaac named their son Joel. Darius had a preconception consultation to discuss this history as well as her history of pre-eclampsia with Dr. Livingston on. Please see that consult note for further details. CURRENT Current Age: [age] year old Age at Delivery: 33 year old RODGER: 09/02/2024, by ultrasound on 01/22/2024 due to irregular periods. Gestational Age: 15w1d This is a single gestation. This was conceived spontaneously. MEDICAL HISTORY Darius???s reported medical history is not expected to impact management or risks to development. FAMILY HISTORY A three-generation pedigree was obtained today and is scanned under the Media tab in [employer]. The family history was reported by Darius and their partner. The following significant findings were reported today: Darius's partner, Isaac, is currently 36 years old and healthy. Isaac does have a history of colon polyps and follows with his PCP for this history since his father as well as all 4 of his paternal uncles also have a history of colon polyps or partial colectomies due to polyps. Cindi reports that all of the polyps for himself and his father and uncles have been in the 10s (10-20) as compared to the 100s or 1000s. Otherwise, the reported family history is unremarkable for multiple miscarriages, stillbirths, defects, intellectual disabilities, known genetic conditions, and consanguinity. RISK ASSESSMENT FOR INHERITED CONDITIONS AND CARRIER SCREENING OPTIONS Expanded carrier screening is available to screen for autosomal recessive conditions and X-linked conditions in a large list of genes. Carrier screening does not test the but gives a risk assessment for the and future pregnancies to have the condition. Expanded carrier screeningis designed to identify carrier status for conditions that are primarily childhood or adolescent onset. Expanded carrier screening does not evaluate for adult-onset conditions such as hereditary cancer syndromes, dementia/ Alzheimer's disease, or cardiovascular disease risk factors. Additionally, expanded carrier screening is not comprehensive for all known genetic diseases or inherited conditions. Carrier screening does not test for all genetic and health conditions or risk factors. Autosomal recessive conditions happen when a mutation has been inherited from the egg and sperm andinclude conditions like cystic fibrosis, thalassemia, hearing loss, spinal muscular atrophy, and more. We reviewed that when both biological parents carry a harmful genetic change in a gene associated with autosomal recessive inheritance, each of their pregnancies has a 1 in 4 (25%) chance to be affected by that condition. X-linked conditions happen when a mutation has been inherited from the eggand include conditions like fragile X syndrome.With x-linked conditions, the specific risk generally depends on the chromosomal sex of the fetus, with XY individuals (generally male) being most severely affected. [place] screening was reviewed. About [place] Screening The patient does NOT have a family history of known inherited conditions. This does NOT mean the patient and/or their partner is not a carrier of a condition. Approximately 90% of couples at an increased reproductive risk for an inherited condition have no family history of that condition. The patient has not had carrier screening previously. The patient declined the carrier screening options. They are aware the option will remain, and theycan contact us if they would like to pursue screening. See below for the more detailed information we dicussed. Carrier screening does not test the but gives a risk assessment for the and future pregnancies to have the condition. The only way to determine with absolutely certainty whether if a is affected with a genetic condition is through diagnostic testing such as a chorionicvillus sampling or amniocentesis. Other options would include testing baby after delivery. Carrier screening does not test for all genetic and health conditions or risk factors There are limitations to current technology and results may be updated at a later date The results typically take 2-3 weeks. RISK ASSESSMENT FOR CHROMOSOME CONDITIONS We explained that the risk for chromosome abnormalities increases with maternal age. We discussed specific features of common chromosome abnormalities, including trisomy 21 (Down syndrome), trisomy 13, trisomy 18, and sex chromosome trisomies. At age 33 at midtrimester, the risk to have a baby with Down syndrome is 1 in 508. At age 33 at midtrimester, the risk to have a baby with any chromosome abnormality is 1 in 254. At age 33 at delivery, the risk to have a baby with Down syndrome is 1 in 769. At age 33 at delivery, the risk to have a baby with any chromosome abnormality is 1 in 322. Darius has not had genetic screening in this but elected to have screening today. GENETIC TESTING OPTIONS Genetic testing during a includes screening and [...] done any time after 10 weeks gestation Standard recommendation for NIPT screens for trisomy 21, trisomy 18, trisomy 13, with the option ofadding sex chromosome aneuploidies, without or without predicted sex Cannot screen for open neural tube defects, maternal serum AFP after 15 weeks is recommended New NIPT options include screening for other trisomies, microdeletion syndromes, and in some cases blood antigens. Guidelines do not recommend these conditions are included in standard screening. These options have limitations and should be discussed with a genetic counselor. However, current (2022) ACMG guidelines do recommend that screening for one microdeletion syndrome,called 22q11.2 deletion syndrome be offered to all patients. 22q11.2 deletion syndrome hasan estimated prevalence of 1 in 990 to 1 in 2148 (0.05-0.1%). Risk is not thought to increase with maternal age. Clinical features are variable but include congenital heart defects, cleft palate, developmental delays, immune system deficiencies, and hearing loss. Approximately 90% of cases are de aiyana (a sporadic new change in a ). Cell-free DNA screening for 22q11.2 deletion syndrome isavailable with the inclusion of other microdeletion syndromes. There is less data about the performance of cell-free DNA screening for more rare microdeletions and the chance for false positives or negative may be increased. We discussed the limitations of cell-free DNA screening in detecting microdeletions and the possibility of false positives and false negatives. The patient opted into 22q11.2deletion syndrome screening. We discussed the following ultrasound options: 2/3 ultrasound (Early Second Trimester) Ultrasound between 14-18 weeks gestation Early anatomy ultrasound for major defects Commonly has suboptimal views due to early gestation so not a substitute for the 18-20w ultrasound Recommended for pregnancies with abnormal screening results, those interested in amniocentesis, or other risk factors Comprehensive level II ultrasound ( Anatomy Ultrasound) Ultrasound done between 18-20 weeks gestation Screens for major defects and markers for aneuploidy (like trisomy 21 and trisomy 18) Includes looking at the fetus/baby's growth, heart, organs (stomach, kidneys), placenta, and amniotic fluid We discussed the following diagnostic options: Amniocentesis Invasive diagnostic procedure done after 15 weeks gestation The procedure collects a small sample of amniotic fluid for the purpose of chromosomal testing and/or other genetic testing Diagnostic result; more than 99% sensitivity for chromosome abnormalities Testing for AFP in the amniotic fluid can test for open neural tube defects It was a pleasure to be involved with Darius???s care. [id number]-gp-[id number] time of the meeting was 45 minutes. Corina Clifton GC, MS, [facility] Board Certified and [place] Licensed Genetic Counselor [facility]: [phone] [facility]: [phone] [facility] documented in this encounter Plan of Treatment Not on file documented as of this encounter Results * [facility] Non-Invasive Screening???[facility]requ[facility] (03/10/2024 12:45 PM CDT) See Scanned Result [facility] NON-INVASIVE SCREENING PREQUEL-Scann ed 03/19/2024 9:56 AM CDT [facility] Blood STRUCTURE OF RIGHT UPPER LIMB / Unknown Venipuncture / Unknown 03/10/2024 12:45 PM CDT 03/10/2024 12:45 PM CDT us Corina Clifton GC LAB - BLOOD ORDERABLES Final R esult [facility] [address] [place] [address], [facility] [phone] documented in this encounter Visit Diagnoses Diagnosis History of IUFD- Primary related condition, antepartum , supervision, high-risk, second trimester documented in this encounter Care Teams Mattress Filler Relationship Specialty Start Date End Date Raven Laguna MD [facility] [address] [place] [address] PCP - General seismograph supervisor 04/23/23 Lamine Pizarro MD [address] [place] [address] Nephrology 04/23/23 documented as of this encounter
--- OUTSIDE RECORDS SUMMARY | 2024-03-24 19:18 | XMS_ITS | Encounter Summary ---
Author Organization [place] Address [address] [place] [address] Care Team Providers Care Director Of Strategic Partnerships Name Role Phone Lamine Pizarro MD Unavailable [phone] Raven Laguna MD Primary Care Provider [phone] Reason for Referral * Diagnostic Imaging Ultrasound (Routine) - Pending Review Specialty Diagnoses / Procedures Referred By Contac t Referred To Contact Radiology. Diagnoses related condition, antepartum Procedures MFM US OB Complete 2/3 Tri Single Esme Castillo MD [address] [place] [address] Phone: tel: fax: Referral ID Status Reason Start Date Expiration Date V isits Requested Visits Authorized [id number] Pending Review 01/28/2024 01/27/2025 1 1 * Consultation (Routine: Next available opening) - Pending Review Specialty Diagnoses / Procedures Referred By Kevin t Referred To Contact Diagnoses related condition, antepartum Esme Castillo MD [address] [place] [address] Phone: tel: fax: Referral ID Status Reason Start Date Expiration Date V isits Requested Visits Authorized [id number] Pending Review 01/28/2024 01/27/2025 1 1 Comments HX of IUFD, chronic hypertension * Consultation (Routine) - Pending Review Specialty Diagnoses / Procedures Referred By Contac t Referred To Contact Diagnoses related condition, antepartum Esme Castillo MD [address] [place] [address] Phone: tel: fax: [facility] [address] [place] [address] Phone: tel: fax: Referral ID Status Reason Start Date Expiration Date V isits Requested Visits Authorized [id number] Pending Review 01/28/2024 01/27/2025 1 1 Question Answer MFM Consultation (unrelated to Ultrasound findings) No Genetic Counseling Consultation: No fax [facility] Esme Garcia [phone] Ultrasound Complete US (14-17.6 weeks GA) US PROC NONE Preferred Location: [facility] - [facility] R[facility] 08/31/2024 MFM Issue OTHER (enter details [...] (Latest Contact Info) Description 01/28/2024 Transcribe Orders [facility] [address] [place] [address] Esme Castillo MD [address] [place] [address] related condition, antepartum (Primary Dx) Social History Tobacco Use Types Packs/Day Years Used Date Smoking Tobacco: Former Cigarettes 0.5 2 Adolescent Education Answer Date Record ed Getting School Help Needed Not on file 04/22 Comments No Sex and Gender Information Value Date Recorded Sex Assigned at Female 06/19/2023 11:52 AM SHIPPING ASSISTANT Legal Sex Female 5:06 AM SHIPPING ASSISTANT Gender Identity Female 06/19/2023 11:52 AM SHIPPING ASSISTANT Sexual Orientation Straight 06/19/2023 11 :52 AM SHIPPING ASSISTANT documented as of this encounter Plan of Treatment Scheduled Referrals Name Type Priority Associated Diagnoses Orde r Schedule Mat Med Ctr Referral - Referral Routine related condition, antepartum Expected: 03/09/2024 (Approximate), Expires: 07/26/2024 [facility] Genetic Counseling Referral Routine: Next available opening related condition, antepartum Expected: 03/09/2024 (Approximate), Expires: 01/27/2025 documented as of this encounter Results * [facility] US OB Complete 2/3 Tri Single (03/10/2024 [...] ?2nd / 3rd Trim ----- Pat. Name: ETIENNE LANGE ? Study Date: ??03/10/2024 11:14am Pat. NO: ??[id number] ?Referring ??MD: ESME CASTILLO Site: ? Cloth Wire Weaver: Garima Knutson RDMS : ??1990 ?Age: ?? [...] lb 4 ?oz EFW by ? Hadlock ([id number]) Head / Face / Neck Biometry: Grain Picker ?5.0 ? mm CM ? 3.1 ? [...] view. RVOT view. LVOT view. 3-vessel view. 2-oucity-vvqjmcz view. Ductal arch view. Abdomen ? Kidneys. [...] time of survey. She had a preconception [facility] consult on 08/28/23. Patient is scheduled for a comprehensive survey at [facility] on 03/31. Following this recommend [...] the patient (reviewing medical records/tests), in direct [id number]-pa-igvg contact with the patient during her visit with the majority spent counseling and discussing the plan of care and documenting the visit in the electronic medical record. Please see note for details. Procedure Note Libby Kaye MD - 03/10/2024 / 3rd Trim ----- Pat. Name: ETIENNE LANGE Study Date: 03/10/2024 11:14am Pat. NO: [id number] Referring MD: ESEM CASTILLO Site: Cloth Wire Weaver: Garima Knutson RDMS : 1990 Age: 33 [...] EFW (lb,oz) 0 lb 4oz EFW by Hadlock([id number]) Head / Face / Neck Biometry: Grain Picker 5.0mm CM 3.1mm Nasal bone 3.4mm ANATOMY [...] 4-chamber view. RVOT view. LVOT view.3-vessel view. 3-eukdzq-lbmknsa view. Ductal arch view. Abdomen Kidneys. Genitals. [...] Patient is scheduled for a comprehensive [facility] on 03/[facility]. Following this recommend [...] see the patient (reviewing medical records/tests), in wvmcfptkud-zz-onvv contact with the patient during her visit [...] low lying placenta. us Esme Castillo MD [facility] US ORDERABLE S Edited Result - Final documented in this encounter Visit Diagnoses Diagnosis related condition, antepartum- Primary related condition, antepartum documented in this encounter Care Teams Director Of Strategic Partnerships Relationship Specialty Start Date End Date Raven Laguna MD [facility] [address] [place] [address] PCP - General cold roll operator 04/23/23 Lamine Pizarro MD [address] [place] [address] Nephrology 04/23/23 documented as of this encounter
--- OUTSIDE RECORDS SUMMARY | 2024-03-24 19:18 | XMS_ITS | Encounter Summary ---
Author Organization [place] Address [address] [place] [address] Care Team Providers Care Chief Client Officer Name Role Phone Lamine Pizarro MD Unavailable [phone] Raven Laguna MD Primary Care Provider [phone] Encounter Details Date Type Department Care Team (Late st Contact Info) Description 01/23/2024 Medical Correspondence [facility] Information Management [address] [place] [address] [address] [place] [address] Scan, Non-Provider Social History Tobacco Use Types Packs/Day Years Used Date Smoking Tobacco: Former Cigarettes 0.5 2 Adolescent Education Answer Date Record ed Getting School Help Needed Not on file 04/22 Comments No Sex and Gender Information Value Date Recorded Sex Assigned at Female 06/19/2023 11:52 AM DRY CHAIN WORKER Legal Sex Female 5:06 AM DRY CHAIN WORKER Gender Identity Female 06/19/2023 11:52 AM DRY CHAIN WORKER Sexual Orientation Straight 06/19/2023 11 :52 AM DRY CHAIN WORKER documented as of this encounter Plan of Treatment Not on file documented as of this encounter Visit Diagnoses Not on filedocumented in this encounter Care Teams Chief Client Officer Relationship Specialty Start Date End Date Raven Laguna MD [facility] [address] [place] [address] PCP - General tromper 04/23/23 Lamine Pizarro MD [address] [place] [address] Nephrology 04/23/23 documented as of this encounter
--- OUTSIDE RECORDS SUMMARY | 2024-03-24 19:18 | XMS_ITS | Encounter Summary ---
Author Organization [facility] Address [address] [place] [address] Care Team Providers Care Credit Risk Modeler Name Role Phone Lamine Pizarro MD Unavailable [phone] Raven Laguna MD Primary Care Provider [phone] Encounter Details Date Type Department Care Team (Latest Contact Info) Description 03/10/2024 Travel Social History Tobacco Use Types Packs/Day Years Used Date Smoking Tobacco: Former Cigarettes 0.5 2 Adolescent Education Answer Date Record ed Getting School Help Needed Not on file 04/22 Estimated Date of Delivery Comme nts Yes 08/31/2024 Based on last me nstrual period of 11/25/2023 Sex and Gender Information Value Date Recorded Sex Assigned at Female 06/19/2023 11:52 AM TRANSIT MAN Legal Sex Female 5:06 AM TRANSIT MAN Gender Identity Female 06/19/2023 11:52 AM TRANSIT MAN Sexual Orientation Straight 06/19/2023 11 :52 AM TRANSIT MAN documented as of this encounter Plan of Treatment Not on file documented as of this encounter Visit Diagnoses Not on filedocumented in this encounter Care Teams Credit Risk Modeler Relationship Specialty Start Date End Date Raven Laguna MD [facility] [address] [place] [address] PCP - General disaster recovery analyst 04/23/23 Lamine Pizarro MD [address] [place] [address] Nephrology 04/23/23 documented as of this encounter
--- OUTSIDE RECORDS SUMMARY | 2024-03-24 19:18 | XMS_ITS | Clinical Summary ---
Author Organization [facility] Address [address] [place] [address] Care Team Providers Care Salt Washer Name Role Phone Lamine Pizarro MD Unavailable [phone] Raven Laguna MD Primary Care Provider [phone] Allergies No known active allergies Medications VITAMIN [...] on last me nstrual period of 11/25/2023 Encounters Date Type Department Care Team Description 03/19/2024 Telephone [facility] [place] [address] [place] [address] Corina Clifton GC Results (Low risk NIPT (XY)) 03/10/2024 12:[address] [facility] [address] [place] [address] Libby Kaye MD related condition, antepartum; History of IUFD; , supervision, high-risk, second trimester 03/10/2024 11:30 AM CDT Office Visit [facility] [address] [facility] [address] [place] [address] Libby Kaye MD History of IUFD (Primary Dx); Chronic hypertension affecting 03/10/2024 10:15 AM CDT Office Visit [facility] [address] [address] Libby Kaye MD Volesky, Mariah, GC History of IUFD (Primary Dx); related condition, antepartum; , supervision, high-risk, second trimester 03/10/2024 10:07 AM CDT - 03/10/2024 11:59 PM CDT Hospital Encounter [place] [address] [address] Libby Kaye MD related condition, antepartum Discharge Disposition: Home or Self Care 03/10/2024 Travel 03/09/2024 Travel 03/05/2024 Travel 03/02/2024 PRE VISIT [facility] [place] [address] [address] [place] [phone] Silvia Narvaez RN Genetic Counseling (Hx IUFD, CHTN); Ultrasound (2/3 complete-hx IUFD, CHTN) 01/28/2024 Transcribe Orders [facility] [place] [address] [facility] [address] [place] [phone] Esme Aguirre MD related condition, antepartum (Primary Dx) 01/27/2024 Medical Correspondence [facility] Information Management [address] [facility] [address] [place] [address] Scan, Non-Provider [facility] PROVIDER SERVICE REQUEST- OUTPATIENT 01/23/2024 Medical Correspondence M [facility] Information Management [address] [facility] [place] [address] Scan, Non-Provider from Last 3 Months Social History Tobacco [...] Sex Assigned at Female 06/19/2023 11:52 AM FAMILY ENGAGEMENT SPECIALIST Legal Sex Female 5:06 AM FAMILY ENGAGEMENT SPECIALIST Gender Identity Female 06/19/2023 11:52 AM FAMILY ENGAGEMENT SPECIALIST Sexual Orientation Straight 06/19/2023 11 :52 AM FAMILY ENGAGEMENT SPECIALIST Last Filed Vital Signs Vital Sign [...] HIV SCREENING 11/15/2006 HEPATITIS C SCREENING 11/15/2009 HPV IMMUNIZATION (2 - 3-dose series) 12/20/2014 11/22/2014 PAP 03/12/2022 03/12/2019 PHQ-2 (once per calendar year) 2023 COVID-19 Vaccine (1 - 2023- season) 2024 INFLUENZA VACCINE (#1) 2024 BMP 08/27/2024 08/28/2023, 06/30/2009 DTAP/TDAP/TD IMMUNIZATION (8 - Td or Tdap) 07/02/2031 07/02/2021, 11/22/2014, 11/01/1996, Additional history exists HEPATITIS B IMMUNIZATION Completed 993, 02/19/1993, 10/10/1992, Additional history exists MATERNAL SCREENING DISCUSSION Completed 03/10/2024 MENINGITIS IMMUNIZATION Aged Out No l onger eligible based on patient's age to complete this topic Pneumococcal Vaccine: Pediatrics (0 to 5 Years) and At-Risk Patients (6 to 64 Years) Aged Out No longer eligible based on patient's age to complete this topic RSV MONOCLONAL ANTIBODY Aged Out No l onger eligible based on patient's age to complete this topic RSV VACCINE (No Doses Required) Completed Procedures Procedure Name Priority Date/Time Associated Diagnosis Comments [employer] NON-INVASIVE SCREENING PREQUEL Routine 03/10/2024 12:45 PM CDT related condition, antepartum History of IUFD , supervision, high-risk, second trimester [facility] US OB COMPLETE 2/3 TRI SINGLE Routine 03/10/2024 12:13 PM CDT related condition, antepartum LAB RESULT - HIM SCAN 01/23/2024 12:00 AM CDT COMPREHENSIVE METABOLIC PANEL Routine 08/28/2023 3:18 PM CDT History of demise, not currently from Last 3 Months or Most Recently Relevant to Health Maintenance Results * [facility] Non-Invasive Screening???Prequel (03/10/2024 12:45 PM CDT) See Scanned Result [employer] NON-INVASIVE SCREENING PREQUEL-Scann ed 03/19/2024 9:56 AM CDT [email or web address] Blood STRUCTURE OF RIGHT UPPER LIMB / Unknown Venipuncture / Unknown 03/10/2024 12:45 PM CDT 03/10/2024 12:45 PM CDT us Corina Clifton GC LAB - BLOOD ORDERABLES Final R esult [email or web address] [address] [place] [address], [facility] [phone] * M US OB Complete 2/3 Tri [...] ? Study Date: ??03/10/2024 11:14am Pat. NO: ??[id number] ?Referring ??: ESME CASTILLO Site: ? Obiee Architect: Garima Knutson RDMS : ??1990 ?Age: ?? [...] lb 4 ?oz EFW by ? Hadlock ([id number]) Head / Face / Neck Biometry: Merchandise Worker ?5.0 ? mm CM ? 3.1 ? [...] view. RVOT view. LVOT view. 3-vessel view. 8-tlmznb-hwloijj view. Ductal arch view. Abdomen ? Kidneys. [...] time of survey. She had a preconception [facility] consult on 08/28/23. Patient is scheduled for a comprehensive survey at [facility] on 03/31. Following this recommend monthly growth [...] the patient (reviewing medical records/tests), in direct cqdb-iq-mxyf contact with the patient during her visit with the majority spent counseling and discussing the plan of care and documenting the visit in the electronic medical record. Please see note for details. Procedure Note Libby Kaye MD - 03/10/2024 / Trim ----- Pat. Name: ETIENNE LANGE Study Date: 03/10/2024 11:14am Pat. NO: [id number] Referring MD: ESME CASTILLO Site: Obiee Architect: Garima Knutson RDMS : 1990 Age: 33 [...] d 09/01/2024 Assigned dating based on ultrasound (), selected on03/10/2024 14w + 6 d 09/02/2024 [...] EFW (lb,oz) 0 lb 4oz EFW by Hadlock([id number]) Head / Face / Neck Biometry: Merchandise Worker 5.0mm CM 3.1mm Nasal bone 3.4mm ANATOMY [...] 4-chamber view. RVOT view. LVOT view.3-vessel view. 1-imnvdn-xqpvwok view. Ductal arch view. Abdomen Kidneys. Genitals. [...] Patient is scheduled [facility] a [facility] on 03[facility]. Following this recommend monthly growthultrasounds [...] see the patient (reviewing medical records/tests), in wzdggcnsaf-qo-xtqh contact with the patient during her visit [...] a low lying placenta. Esme Castillo MD [facility] ORDERABLE S Edited Result - Final * Lab Result - HIM Scan (01/23/2024 12:00 AM CDT) 01/23/2024 Provider Outside NON-BEAKER LAB TESTING Final Result * Comprehensive metabolic panel (08/28/2023 3:18 PM CDT) [facility] Sodium 142 135 - 145 mmol/L [...] - BLOOD ORDERABLES Final Result [facility] Acute Care Lab [address] [place] [address] from Last 3 Months or Most Recently Relevant to Health Maintenance Insurance [facility] Care Teams Salt Washer Relationship Specialty Start Date End Date Raven Laguna MD [facility] [address] [place] [address] PCP - General occupational therapy specialist 04/23/23 Lamine Pizarro MD [address] [place] [address] Nephrology 04/23/23
[2024-03-24] MEDS: LACTATED RINGERS 500 ML 500 ML IV (19:33)
[2024-03-24] MEDS: diphenhydrAMINE 50 MG/ML inj 12.5 MG IVP (19:35)
[2024-03-24] MEDS: KETOROLAC 30 MG/ML inj IVP (19:36)
[2024-03-24] MEDS: METOCLOPRAMIDE HCL 5 MG/ML INJ 10 MG IVP (19:36)
--- NOTE | 2024-03-24 20:17 | P.OBO_ITS ---
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 Patient has been experiencing headaches throughout , this time feels like for the past couple of days this has worsened, throbbing and localized on her temples. Patient was also concerned that she was sitting working and started to feel lightheaded. [place] like her heart was racing as well. Patient evaluated her BP and that was normal, HR normal. Has tried Tylenol and this does not help manage headaches. She saw her chiropractor yesterday and no resolution. Has been sleeping well. She has been hydrating more and this has not been helpful either. Patient denies chest pain, SOB, vision changes other than sporadic episodes of floaters that happen when she moves quickly, denies sick contacts, no nasal congestion, no abdominal tightening, no abnormal vaginal discharge, no fever, no chills, no motor deficits. No constipation, no diarrhea, no dysuria, urgency or frequency. Baby moving naturally: No (No movements appreciated yet, normal for GA) Bleeding: No Contractions: No Leaking fluid: No Discharge: No Heartburn: No Back pain: No Meds Home Medications and Allergies Home Medications ?Medication ?Instructions ?Recorded ?Confirmed ?Type ascorbic acid (vitamin C) 1,000 mg 1 g PO DAILY 04/11/23 03/24/24 History tablet docosahexaenoic acid 200 mg 200 mg PO DAILY 01/23/24 03/24/24 History capsule ( DHA) aspirin 81 mg tablet,delayed 81 mg PO QDAY 03/02/24 03/24/24 History release (Adult Aspirin Regimen) magnesium gluconate 27 mg 27 mg PO QDAY 03/02/24 03/24/24 History magnesium (500 mg) tablet ondansetron 4 mg disintegrating 4 mg PO Q6H PRN 03/02/24 03/24/24 History tablet Allergies Allergy/AdvReac Type Severity Reaction Status Date / Time Sulfa (Sulfonamide Allergy Intermediate Hives Verified 03/24/24 16:45 Antibiotics) cat dander Allergy Mild Verified 03/24/24 16:45 PFSH Medical History (Updated 03/24/24 @ 20:14 by Esme Ramirez MD) Pelvic pain ?R10.2 - Pelvic and perineal pain (ICD-10) IUGR (intrauterine growth restriction) Endometritis following delivery ?O86.12 - Endometritis following delivery (ICD-10) Retained placenta ?O73.0 - Retained placenta without hemorrhage (ICD-10) Vaginal after , delivered, current hospitalization ?O34.219 - Maternal care for unspecified type scar from previous delivery (ICD-10) IUFD (intrauterine ) History of tobacco use ?Z87.891 - Personal history of nicotine dependence (ICD-10) Generalized anxiety disorder ?F41.1 - Generalized anxiety disorder (ICD-10) Polycystic ovary syndrome (12/25/19) ?E28.2 - Polycystic ovarian syndrome (ICD-10) Menorrhagia ?N92.0 - Excessive and frequent menstruation with regular cycle (ICD-10) History of severe pre-eclampsia (07/2021) ?Z87.59 - Personal history of other complications of , childbirth and the puerperium (ICD-10) Depression (06/03/12) ?F32.A - Depression, unspecified (ICD-10) Bunion of great toe of right foot ?M21.611 - Bunion of right foot (ICD-10) History of MRSA infection (07/27/17) ?Z86.14 - Personal history of Methicillin resistant Staphylococcus aureus infection (ICD-10) Surgical History (Updated 01/23/24 @ 15:33 by Esme Ramirez MD) Hx of tonsillectomy ?Z90.89 - Acquired absence of other organs (ICD-10) Status post primary low transverse section (08/16/21) ?Z98.891 - History of uterine scar from previous surgery (ICD-10) Status post laparoscopic cholecystectomy (02/14/15) ?Z90.49 - Acquired absence of other specified parts of digestive tract (ICD- 10) Family History Father Parkinson disease Social History Narrative: SOCIAL? ? Education: 3 years of college? ? 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 ? Partner: Isaac? engaged works at [employer], something with logistics? Lives with: Isaac, son age 20 months? ? Pets: 2 dogs? ? Abuse: Denies past Safe at home with current partner ? ? ? Special Diet: avoids greasy food related to gall bladder removal? ? Ok with a blood transfusion: yes? ? Culture or church beliefs: denies? RISK FACTORS? ? Exercise Times/wk: 3x week. elliptical? ? Depression/Anxiety: PP anxiety? ? Previous Treatments: was started on Celexa took self off did not like how she felt. Saw her family practitioner and insurance healthcare consultant? Therapy: NA [place]: 0 PHQ 9: 0? ? Seat Belt Use: Routinely ? Smoking: Denies past/present? ?Smoked quit about 6 years ago smoked for about 2 years, 5-10 cigarettes per day Alcohol/day: Denies while ? when not 2-3 drinks on the weekends Caffeine: 1 cup of coffee a day? ? Drug Use: Denies past/present? What is your current living situation?: I presently have a place to live Problems where you live: no known problems In the past 12 months, utilities in danger of being shut off: no In past 12 months, lack of transportation kept you from medical appts, meetings, work, or getting things needed for daily living: no In the past 12 mos, have been you worried that your food would run out before you had money to buy more?: never true In the past 12 mos, the food you bought just didn't last and you didn't have money to buy more?: never true Smoking Status: Former smoker Second hand tobacco smoke exposure: No How often do you have a drink containing alcohol: never AUDIT-C Alcohol total score: 0 Non-prescribed substance use: denies use Caffeine: No How often does anyone, including family, friends and others, physically hurt you : never How often does anyone, including family, friends and others, insult or talk down to you: never How often does anyone, including family, friends and others, threaten you with harm: never How often does anyone, including family, friends and others, scream or curse at you: never Little interest or pleasure in doing things: not at all Feeling down, depressed, or hopeless: not at all Are you using contraception or practicing any form of control: Yes History History 3 Elective abortions Para 1 Spontaneous abortions Hx # Term Pregnancies 1 Ectopic pregnancies Hx # Pregnancies 1 Multiple births Number of Living Children 1 Past Pregnancies Del. Date GA/Weeks Outcome Route wt Inf Gender Labor Lgth Anesthesia Location Provider Compli 08/16/21 36 live - low transverse 2.523 kg Male alice Bell preeclampsia labor 07/16/23 23 still vaginal delivery 1.588 kg Male Ray other Delivery Date: 07/16/23 Last Updated by: Lucretia Romero ~ BOB IUFD at 06/01 OB - H&P: Exam Physical Exam Vital signs: Temp Pulse Resp BP Pulse Ox 97.8 F 87 16 115/57 L 100 03/24/24 19:47 03/24/24 19:47 03/24/24 16:44 03/24/24 19:47 03/24/24 17:22 Narrative: VITAL SIGNS: As noted above. GENERAL APPEARANCE: Alert, cooperative female in no acute distress. MOOD & AFFECT: Normal. HEART: Regular rate and rhythm without murmurs. LUNGS: Lungs are clear to auscultation bilaterally. No crackles, wheezes, or rhonchi. ABDOMEN: Gravid, non tender EXTREMITIES: Nonedematous. Well perfused. Nontender. NEURO: Intact. Labs Labs Laboratory Tests 03/24/24 03/24/24 03/24/24 Range/Units 16:50 16:30 16:20 WBC 8.56 (4.50-11.00) K/uL RBC 4.39 (4.00-5.20) m/uL Hgb 12.3 (12.0-16.0) gm/dL Hct 36.3 (33.0-51.0) % MCV 83 (80-100) fL MCH 28 (26-34) pg MCHC 34 (32-36) gm/dL RDW Coeff of Milad 12.7 (11.5-15.5) % Plt Count 189 (140-440) K/uL Neut % (Auto) 70.5 (42.0-72.0) % Lymph % (Auto) 20.9 (20-44) % [place] % (Auto) 5.8 (0.0-11.0) % Eos % (Auto) 2.3 (0.0-7.0) % Baso % (Auto) 0.4 (0.0-3.0) % Neut # (Auto) 6.03 (1.7-7.0) K/uL Lymph # (Auto) 1.79 (0.90-2.90) K/uL [place] # (Auto) 0.50 (0.00-0.90) K/UL Eos # (Auto) 0.20 (0.00-0.50) K/uL Baso # (Auto) 0.03 (0.00-0.30) K/uL Abs Immat Gran (auto) 0.01 (0.00-0.30) K/uL Imm/Tot Granulo (auto) 0.1 % Sodium 134 L (135-149) mmol/L Potassium 3.9 (3.6-5.1) mmol/L Chloride 103 (96-114) mmol/L Carbon Dioxide 22 (20-32) mmol/L Anion Gap 9 (7-15) mEq/L BUN 12 (5-24) mg/dL Creatinine 0.6 (0.5-1.5) mg/dL Estimated GFR 122 ml/min Glucose 96 (60-115) mg/dL Calcium 9.6 (8.4-10.6) mg/dL Ferritin 26.0 (6.24-137.0) ng/mL Total Bilirubin 0.2 (0.1-1.5) mg/dL AST 17 (12-35) U/L ALT 10 (4-35) U/L Alkaline Phosphatase 47 (40-150) U/L Total Protein 7.1 (6.0-8.3) g/dL Albumin 4.3 (3.3-5.0) g/dL Urine Creatinine 25.7 mg/dL Protein/Creatinin Ratio 0.58 H (0-0.19) Urine Total Protein 15 mg/dL Assessment and Plan Assessment and plan (1) Low ferritin: Status: Acute (2) : Status: Acute (3) Chronic hypertension affecting : Status: Acute Plan Migraine headache, resolved after 1 dose of IV Toradol, Reglan and Benadryl. Low ferritin, will start iron supplements. Otherwise, continue current management.
== END 2024-03-24 21:28 | disposition home or self-care (01) ==
LOC: OB OUT 19:16 → OB 19:18
PROVIDERS: PCP Family Medicine; Visit Provider Obstetrics & Gynecology
DX: O10.919 Unspecified pre-existing hypertension complicating pregnancy, unspecified trimester (principal); R79.0 Abnormal level of blood mineral; Z34.90 Encounter for supervision of normal pregnancy, unspecified, unspecified trimester
CPT/HCPCS: 36415; 76815; 80053; 82570; 82728; 84156; 85025; G0463; J1200; J1885; J2765; J7120

== ENCOUNTER 2024-03-31 08:24 | Outpatient (CLI) | payer BC, SELFPAY ==
--- OUTSIDE RECORDS SUMMARY | 2024-03-31 08:26 | XMS_ITS | Encounter Summary ---
Author Organization [facility] Address [address] [place] [address] Care Team Providers Care Mail Carrier And Clerk Name Role Phone Lamine Pizarro MD Unavailable [phone] Raven Laguna MD Primary Care Provider [phone] Encounter Details Date Type Department Care Team (Latest Contact Info) Description 01/27/2024 Medical Correspondence [facility] Information Management [address] [place] [address] [address] [place] [address] Scan, Non-Provider [facility] PROVIDER SERVICE REQUEST- OUTPATIENT Social History Tobacco Use Types Packs/Day Years Used Date Smoking Tobacco: Former Cigarettes 0.5 2 Adolescent Education Answer Date Record ed Getting School Help Needed Not on file 04/22 Comments No Sex and Gender Information Value Date Recorded Sex Assigned at Female 06/19/2023 11:52 AM DONOR RECRUITMENT MANAGER Legal Sex Female 5:06 AM DONOR RECRUITMENT MANAGER Gender Identity Female 06/19/2023 11:52 AM DONOR RECRUITMENT MANAGER Sexual Orientation Straight 06/19/2023 11 :52 AM DONOR RECRUITMENT MANAGER documented as of this encounter Plan of Treatment Not on file documented as of this encounter Visit Diagnoses Not on filedocumented in this encounter Care Teams Mail Carrier And Clerk Relationship Specialty Start Date End Date Raven Laguna MD [facility] [address] [place] [address] PCP - General contracting support specialist 04/23/23 Lamine Pizarro MD [address] [place] [address] Nephrology 04/23/23 documented as of this encounter
--- OUTSIDE RECORDS SUMMARY | 2024-03-31 08:26 | XMS_ITS | Encounter Summary ---
Author Organization [facility] Address [address] [place] [address] Care Team Providers Care Aviation Electronic Warfare Operator Name Role Phone Lamine Pizarro MD Unavailable [phone] Raven Laguna MD Primary Care Provider [phone] Reason for Referral * Diagnostic Imaging Ultrasound (Routine) - Pending Review Specialty Diagnoses / Procedures Referred By Contac t Referred To Contact Radiology. Diagnoses related condition, antepartum Procedures [facility] US OB Complete 2/3 Tri Single Esme Castillo MD [address] [place] [address] Phone: tel: fax: Referral ID Status Reason Start Date Expiration Date V isits Requested Visits Authorized [id number] Pending Review 01/28/2024 01/27/2025 1 1 Reason for Visit * Diagnostic Imaging Ultrasound (Routine) - Pending Review Specialty Diagnoses / Procedures Referred By Contac t Referred To Contact Radiology. Diagnoses related condition, antepartum Procedures MFM US OB Complete 2/3 Tri Single Esme Castillo MD [address] [place] [address] Phone: tel: fax: Referral ID Status Reason Start Date Expiration Date V isits Requested Visits Authorized [id number] Pending Review 01/28/2024 01/27/2025 1 1 Encounter Details Date Type Department Care Team (Latest Contact Info) Description 03/10/2024 10:07 AM CDT - 03/10/2024 11:59 PM CDT Hospital Encounter [facility] [place] [address] [facility] [address] [place] [address] Libby Kaye MD [address] [place] [address] related condition, antepartum Discharge Disposition: [...] Sex Assigned at Female 06/19/2023 11:52 AM ANVILSMITH Legal Sex Female 5:06 AM ANVILSMITH Gender Identity Female 06/19/2023 11:52 AM ANVILSMITH Sexual Orientation Straight 06/19/2023 11 :52 AM ANVILSMITH documented as of this encounter Medications at [...] Procedure Name Priority Date/Time Associated Diagnosis Comments [facility] US OB COMPLETE 2/3 TRI SINGLE Routine 03/10/2024 12:13 PM CDT related condition, antepartum documented in this encounter Results * [facility] US OB Complete 2/3 Tri Single [...] ? Study Date: ??03/10/2024 11:14am Pat. NO: ??[id number] ?Referring ??: ESME CASTILLO Site: ? Senior Director Of Strategy: Garima Knutson RDMS : ??1990 ?Age: ?? [...] lb 4 ?oz EFW by ? Hadlock ([id number]) Head / Face / Neck Biometry: Louver Mortiser Operator ?5.0 ? mm CM ? 3.1 [...] view. RVOT view. LVOT view. 3-vessel view. 8-tdcecl-eanjhwi view. Ductal arch view. Abdomen ? Kidneys. [...] time of survey. She had a preconception [facility] consult on 08/28/23. Patient is scheduled for a comprehensive survey at [facility] on 03/31. Following this recommend monthly growth [...] the patient (reviewing medical records/tests), in direct mhqw-kz-xcop contact with the patient during her visit with the majority spent counseling and discussing the plan of care and documenting the visit in the electronic medical record. Please see note for details. Procedure Note Libby Kaye MD - 03/10/2024 / Trim ----- Pat. Name: ETIENNE LANGE Study Date: 03/10/2024 11:14am Pat. NO: [id number] Referring MD: ESME CASTILLO Site: Senior Director Of Strategy: Garima Knutson RDMS : 1990 Age: 33 [...] EFW (lb,oz) 0 lb 4oz EFW by Hadlock([id number]) Head / Face / Neck Biometry: Louver Mortiser Operator 5.0mm CM 3.1mm Nasal bone 3.4mm [...] 4-chamber view. RVOT view. LVOT view.3-vessel view. 6-bmaxun-qpeyogj view. Ductal arch view. Abdomen Kidneys. Genitals. [...] at time of survey.She had a preconception [facility] consult on 08/28/23. Patient is scheduled for a comprehensive [facility] on 03/31. Following this recommend monthly growthultrasounds [...] see the patient (reviewing medical records/tests), in lkkaiahlwr-ck-ykjk contact with the patient during her visit [...] low lying placenta. us Esme Castillo MD [facility] US ORDERABLE S Edited Result - Final documented in this encounter Visit Diagnoses Diagnosis related condition, antepartum documented in this encounter Care Teams Aviation Electronic Warfare Operator Relationship Specialty Start Date End Date Raven Laguna MD [address] [address] PCP - General try out person 04/23/23 Lamine Pizarro MD [address] [place] [address] Nephrology 04/23/23 documented as of this encounter
--- OUTSIDE RECORDS SUMMARY | 2024-03-31 08:26 | XMS_ITS | Encounter Summary ---
Author Organization [place] Address [address] [place] [address]. [place] [address] Care Team Providers Care Academic Associate Name Role Phone Lamine Pizarro MD Unavailable [phone] Raven Laguna MD Primary Care Provider [phone]- [phone] Encounter Details Date Type Department Care Team (Late st Contact Info) Description 03/10/2024 12:40 PM CDT Lab [facility] [address] [place] [phone] Libby Kaye MD [address] [facility] [address] [place] [address] related condition, antepartum; History of [...] Sex Assigned at Female 06/19/2023 11:52 AM CHARGER OPERATOR HELPER Legal Sex Female 5:06 AM CHARGER OPERATOR HELPER Gender Identity Female 06/19/2023 11:52 AM CHARGER OPERATOR HELPER Sexual Orientation Straight 06/19/2023 11 :52 AM CHARGER OPERATOR HELPER documented as of this encounter Plan of Treatment Not on file documented as of this encounter Procedures Procedure Name Priority Date/Time Associated Diagnosis Comments MYRIAD NON-INVASIVE SCREENING PREQUEL Routine 03/10/2024 12:45 PM CDT related condition, antepartum History of IUFD , supervision, high-risk, second trimester documented in this encounter Results * [employer] Non-Invasive Screening???Prequel (03/10/2024 12:45 PM CDT) See Scanned Result [employer] NON-INVASIVE SCREENING PREQUEL-Scann ed 03/19/2024 9:56 AM CDT [facility] [employer] Blood STRUCTURE OF RIGHT UPPER LIMB / Unknown Venipuncture / Unknown 03/10/2024 12:45 PM CDT 03/10/2024 12:45 PM CDT us Corina Clifton GC LAB - BLOOD ORDERABLES Final R esult [facility] [address] [place] [address], [facility] [phone] documented in this encounter Visit Diagnoses Diagnosis related condition, antepartum History of IUFD , supervision, high-risk, second trimester documented in this encounter Care Teams Academic Associate Relationship Specialty Start Date End Date Raven Laguna MD [facility] [address] [place] [address] PCP - General telecom specialist 04/23/23 Lamine Pizarro MD [address] [place] [address] Nephrology 04/23/23 documented as of this encounter
--- OUTSIDE RECORDS SUMMARY | 2024-03-31 08:26 | XMS_ITS | Encounter Summary ---
Author Organization [place] Address [address] [place] [address] Care Team Providers Care Mold Inspector Name Role Phone Lamine Pizarro MD Unavailable [phone] Raven Laguna MD Primary Care Provider [phone]- [phone] Encounter Details Date Type Department Care Team [...] Sex Assigned at Female 06/19/2023 11:52 AM TRANSCRIBING OPERATORS SUPERVISOR Legal Sex Female 5:06 AM TRANSCRIBING OPERATORS SUPERVISOR Gender Identity Female 06/19/2023 11:52 AM TRANSCRIBING OPERATORS SUPERVISOR Sexual Orientation Straight 06/19/2023 11 :52 AM TRANSCRIBING OPERATORS SUPERVISOR documented as of this encounter Plan of Treatment Not on file documented as of this encounter Visit Diagnoses Not on filedocumented in this encounter Care Teams Mold Inspector Relationship Specialty Start Date End Date Raven Laguna MD [facility] [address] [place] [address] PCP - General ruffling hemmer automatic 04/23/23 Lamine Pizarro MD [address] [place] [address] Nephrology 04/23/23 documented as of this encounter
--- OUTSIDE RECORDS SUMMARY | 2024-03-31 08:26 | XMS_ITS | Encounter Summary ---
Author Organization [facility] Address [address] [place] [address]. [place] [address] Care Team Providers Care Parts Counter Salesperson Name Role Phone Lamine Pizarro MD Unavailable [phone] Raven Laguna MD Primary Care Provider [phone] Reason for Visit * Reason Onset Date Comments Results 03/19/2024 Low risk NIPT (X Y) Encounter Details Date Type Department Care Team (Late st Contact Info) Description 03/19/2024 Telephone [facility] Maternal Medicine Center [place] [address] [facility] [address] [place] [address] Corina Clifton GC MATERNAL MEDICINE [address] [facility] [address] [place] [address] Results (Low risk NIPT (XY)) [...] Sex Assigned at Female 06/19/2023 11:52 AM MICROBIOLOGY LAB MANAGER Legal Sex Female 5:06 AM MICROBIOLOGY LAB MANAGER Gender Identity Female 06/19/2023 11:52 AM MICROBIOLOGY LAB MANAGER Sexual Orientation Straight 06/19/2023 11 :52 AM MICROBIOLOGY LAB MANAGER documented as of this encounter Miscellaneous [...] primary OB to review. Corina Clifton MS, [facility] Certified and Licensed Genetic Counselor [facility] Maternal Medicine Office: [phone] [facility]: [phone] [facility] documented in this encounter Plan of Treatment Not on file documented as of this encounter Visit Diagnoses Not on filedocumented in this encounter Care Teams Parts Counter Salesperson Relationship Specialty Start Date End Date Raven Laguna MD [facility] [address] [place] [address] PCP - General compensation intern 04/23/23 Lamine Pizarro MD [address] [place] [address] Nephrology 04/23/23 documented as of this encounter
--- OUTSIDE RECORDS SUMMARY | 2024-03-31 08:26 | XMS_ITS | Encounter Summary ---
Author Organization [place] Address [address] [place] [address] Care Team Providers Care Top Closer Name Role Phone Lamine Pizarro MD Unavailable [phone] Raven Laguna MD Primary Care Provider [phone] Encounter Details Date Type Department Care Team (Late st Contact Info) Description 01/23/2024 Medical Correspondence [facility] Information Management [address] [place] [address] [address] [place] [address] Scan, Non-Provider Social History Tobacco Use Types Packs/Day Years Used Date Smoking Tobacco: Former Cigarettes 0.5 2 Adolescent Education Answer Date Record ed Getting School Help Needed Not on file 04/22 Comments No Sex and Gender Information Value Date Recorded Sex Assigned at Female 06/19/2023 11:52 AM DINKEY ENGINE FIRER Legal Sex Female 5:06 AM DINKEY ENGINE FIRER Gender Identity Female 06/19/2023 11:52 AM DINKEY ENGINE FIRER Sexual Orientation Straight 06/19/2023 11 :52 AM DINKEY ENGINE FIRER documented as of this encounter Plan of Treatment Not on file documented as of this encounter Visit Diagnoses Not on filedocumented in this encounter Care Teams Top Closer Relationship Specialty Start Date End Date Raven Laguna MD [facility] [address] [place] [address] PCP - General handicapper harness racing 04/23/23 Lamine Pizarro MD [address] [place] [address] Nephrology 04/23/23 documented as of this encounter
--- OUTSIDE RECORDS SUMMARY | 2024-03-31 08:26 | XMS_ITS | Encounter Summary ---
Author Organization [place] Address [address] [place] [address] Care Team Providers Care Business Functional Analyst Name Role Phone Lamine Pizarro MD Unavailable Raven Laguna MD Primary Care Provider [phone]- [phone] Encounter Details Date Type Department Care Team [...] Assigned at Female 06/19/2023 11:52 AM WELFARE AIDE Legal Sex Female 5:06 AM WELFARE AIDE Gender Identity Female 06/19/2023 11:52 AM WELFARE AIDE Sexual Orientation Straight 06/19/2023 11 :52 AM WELFARE AIDE documented as of this encounter Plan of Treatment Not on file documented as of this encounter Visit Diagnoses Not on filedocumented in this encounter Care Teams Business Functional Analyst Relationship Specialty Start Date End Date Raven Laguna MD [facility] [address] [place] [address] PCP - General account general manager 04/23/23 Lamine Pizarro MD [address] [place] [address] Nephrology 04/23/23 documented as of this encounter
--- OUTSIDE RECORDS SUMMARY | 2024-03-31 08:26 | XMS_ITS | Encounter Summary ---
Author Organization [facility] Address [address] [place] [address] Care Team Providers Care Nuclear Medicine Specialist Name Role Phone Lamine Pizarro MD Unavailable [phone] Raven Laguna MD Primary Care Provider [phone] Encounter Details Date Type Department Care Team [...] Sex Assigned at Female 06/19/2023 11:52 AM ALLIANCE CONSULTANT Legal Sex Female 5:06 AM ALLIANCE CONSULTANT Gender Identity Female 06/19/2023 11:52 AM ALLIANCE CONSULTANT Sexual Orientation Straight 06/19/2023 11 :52 AM ALLIANCE CONSULTANT documented as of this encounter Plan of Treatment Not on file documented as of this encounter Visit Diagnoses Not on filedocumented in this encounter Care Teams Nuclear Medicine Specialist Relationship Specialty Start Date End Date Raven Laguna MD [facility] [address] [place] [address] PCP - General mohs surgeon 04/23/23 Lamine Pizarro MD [address] [place] [address] Nephrology 04/23/23 documented as of this encounter
--- OUTSIDE RECORDS SUMMARY | 2024-03-31 08:26 | XMS_ITS | Encounter Summary ---
Author Organization [facility] Address [address] [place] [address]. [place] [address] Care Team Providers Care Flatwork Feeder Name Role Phone Lamine Pizarro MD Unavailable [phone] Raven Laguna MD Primary Care Provider [phone]- [phone] Reason for Visit * Reason Comments Genetic Counseling Hx IUFD, CHTN Ultrasound 2/3 complete-hx IUFD , CHTN Encounter Details Date Type Department Care Team (Late st Contact Info) Description 03/02/2024 PRE VISIT [facility] Maternal Medicine Center [place] [address] [facility] [address] [place] [address] Silvia Narvaez RN Genetic Counseling [...] Sex Assigned at Female 06/19/2023 11:52 AM HOSPICE ENTRANCE ATTENDANT Legal Sex Female 5:06 AM HOSPICE ENTRANCE ATTENDANT Gender Identity Female 06/19/2023 11:52 AM HOSPICE ENTRANCE ATTENDANT Sexual Orientation Straight 06/19/2023 11 :52 AM HOSPICE ENTRANCE ATTENDANT documented as of this encounter Plan of Treatment Not on file documented as of this encounter Visit Diagnoses Not on filedocumented in this encounter Care Teams Flatwork Feeder Relationship Specialty Start Date End Date Raven Laguna MD [facility] [address] [place] [address] PCP - General vp lab 04/23/23 Lamine Pizarro MD [address] [place] [address] Nephrology 04/23/23 documented as of this encounter
--- OUTSIDE RECORDS SUMMARY | 2024-03-31 08:26 | XMS_ITS | Encounter Summary ---
Author Organization [place] Address [address] [place] [address] Care Team Providers Care Avionics Shop Supervisor Name Role Phone Lamine Pizarro MD Unavailable [phone] Raven Laguna MD Primary Care Provider [phone] Reason for Visit * Reason Comments Genetic Counseling * Consultation (Routine: Next available opening) - Pending Review Specialty Diagnoses / Procedures Referred By Kevin montalvo Referred To Contact Diagnoses related condition, antepartum Esme Ramirez MD [address] [place] [address] Phone: tel: fax: Referral ID Status Reason Start Date Expiration Date V isits Requested Visits Authorized [id number] Pending Review 01/28/2024 01/27/2025 1 1 Encounter Details Date Type Department Care Team (Late st Contact Info) Description 03/10/2024 10:15 AM CDT Office Visit [facility] [place] [address] [facility] [address] [place] [address] Libby Kaye MD [address] [address] Corina Clifton GC MATERNAL MEDICINE [address] [facility], [address] [id number] History of IUFD (Primary Dx); related condition, [...] Sex Assigned at Female 06/19/2023 11:52 AM PRODUCT MARKETING CONSULTANT Legal Sex Female 5:06 AM PRODUCT MARKETING CONSULTANT Gender Identity Female 06/19/2023 11:52 AM PRODUCT MARKETING CONSULTANT Sexual Orientation Straight 06/19/2023 11 :52 AM PRODUCT MARKETING CONSULTANT documented as of this encounter Progress Notes * Corina Clifton, ORTEGA - 03/10/2024 10:15 AM CDT [facility] Genetic Counseling Consult Patient: Darius Lange Preferred Name: Darius Date of : 1990 Date of Service: 03/10/24 Darius was seen at the [facility] Maternal Medicine Center for genetic consultation. The indication for genetic counseling is desire to discuss options for genetic screening and diagnostics and discuss the history of the IUFD in Darius's previous . The patient was accompanied to this visit by their Isaac. The session was conducted in Niuean. IMPRESSION/ PLAN 1. Darius has not had genetic screening in this but elected to have screening today. 2. During today's [facility] visit, Darius had a blood draw for expanded non-invasive testing (also called NIPT, NIPS, or cell-free DNA) through [employer] (prequel). The expanded NIPT screens for trisomy [...] results, including sex, will be available in [facility] [employer]. 3. Darius had a early second trimester anatomy ultrasound today. Please see the ultrasound reportfor further details. 5. Further recommendations include a anatomy level II ultrasound with [facility]. Darius reports this ultrasound has already been scheduled with a [facility] physician when they rotate to [facility]. HISTORY /Parity: Darius's history is significant for: [...] is scanned under the Media tab in [employer] The family history was reported by Darius [...] individuals (generally male) being most severely affected. [place] screening was reviewed. About [place] Screening The [...] pleasure to be involved with Darius???s care. Zadi-wp-dqhr time of the meeting was 45 minutes. Corina Clifton GC, MS, [facility] Board Certified and [place] Licensed Genetic Counselor [facility] Maternal Medicine Office: [phone] [facility]: [phone] [facility] documented in this encounter Plan of Treatment Not on file documented as of this encounter Results * [facility] Non-Invasive Screening???Prequel (03/10/2024 12:45 PM CDT) See Scanned Result MY[facility]AD NON-INVASIVE SCREENING PREQUEL-Scann ed 03/19/2024 9:56 AM CDT [facility] Blood STRUCTURE OF RIGHT UPPER LIMB / Unknown Venipuncture / Unknown 03/10/2024 12:45 PM CDT 03/10/2024 12:45 PM CDT us Corina Clifton GC LAB - BLOOD ORDERABLES Final R esult [employer] [address] [place] [address], [facility] [phone] documented in this encounter Visit Diagnoses Diagnosis History of IUFD- Primary related condition, antepartum , supervision, high-risk, second trimester documented in this encounter Care Teams Avionics Shop Supervisor Relationship Specialty Start Date End Date Raven Laguna MD [facility] [address] [place] [address] PCP - General retort load expediter 04/23/23 Lamine Pizarro MD [address] [place] [address] Nephrology 04/23/23 documented as of this encounter
--- OUTSIDE RECORDS SUMMARY | 2024-03-31 08:26 | XMS_ITS | Encounter Summary ---
Author Organization [place] Address [address] [place] [address]. [place] [address] Care Team Providers Care Commissioner Conservation Of Resources Name Role Phone Lamine Pizarro MD Unavailable [phone] Raven Laguna MD Primary Care Provider [phone] Reason for Visit * Reason Comments Ultrasound L2-hx IUFD, CHTN Encounter Details Date Type Department Care Team (Late st Contact Info) Description 03/10/2024 11:30 AM CDT Office Visit [facility] Maternal Medicine Center [place] [address] [facility] [address] [place] [address] Libby Kaye MD [address] [facility] [address] [place] [address] History of IUFD (Primary Dx); [...] Sex Assigned at Female 06/19/2023 11:52 AM ACCOUNTS OFFICER Legal Sex Female 5:06 AM ACCOUNTS OFFICER Gender Identity Female 06/19/2023 11:52 AM ACCOUNTS OFFICER Sexual Orientation Straight 06/19/2023 11 :52 AM ACCOUNTS OFFICER documented as of this encounter Progress Notes * Libby Kaye MD - 03/10/2024 11:30 AM CDT Please see Imaging tab under Chart Review for details of today's visit. Libby Kaye documented in this encounter Nursing Notes * Silvia Narvaez, RN - 03/10/2024 11:30 AM CDT Darius presents to [facility] for 2/3 complete ultrasound due to history of IUFD and CHTN. Patient denies contractions, leaking of fluid, or bleeding. SBAR given to [facility] MD, see their note in Epic. documented in this encounter Plan of Treatment Not on file documented as of this encounter Visit Diagnoses Diagnosis History of IUFD- Primary Chronic hypertension affecting documented in this encounter Care Teams Commissioner Conservation Of Resources Relationship Specialty Start Date End Date Raven Laguna MD [address] [address] PCP - General rug renovator 04/23/23 Lamine Pizarro MD [address] [place] [address] Nephrology 04/23/23 documented as of this encounter
--- OUTSIDE RECORDS SUMMARY | 2024-03-31 08:26 | XMS_ITS | Referral Summary ---
Author Organization [place] Address [address] [place] [address] Care Team Providers Care Retail Analytics Manager Name Role Phone Lamine Pizarro MD Unavailable Raven Laguna MD Primary Care Provider [phone] Encounters Date Type Department Care Team Description 03/19/2024 Telephone [facility] Maternal Medicine [facility] [address] [facility] [address] [place] [address] Corina Clifton GC Results (Low risk NIPT (XY)) 03/10/2024 12:40 PM CDT Lab [facility] [address] [place] [address] Libby Kaye MD related condition, antepartum; History of IUFD; , supervision, high-risk, second trimester 03/10/2024 Travel 03/10/2024 11:30 AM CDT Office Visit [facility] Maternal Medicine [facility] [address] [facility] [address] [place] [address] Libby Kaye MD History of IUFD (Primary Dx); Chronic hypertension affecting 03/10/2024 10:07 AM CDT - 03/10/2024 11:59 PM CDT Hospital Encounter [facility] Medicine [facility] [address] [facility] [address] [place] [address] Libby Kaye MD related condition, antepartum Discharge Disposition: Home or Self Care 03/10/2024 10:15 AM CDT Office Visit [facility] [address] [facility] [address] [place] [address] Libby Kaye MD [employer], Mariah, GC History of IUFD (Primary Dx); related condition, antepartum; , supervision, high-risk, second trimester 03/09/2024 Travel 03/05/2024 Travel 03/02/2024 PRE VISIT [facility] Medicine [facility] [address] [facility] [address] [place] [address] Silvia Narvaez RN Genetic Counseling (Hx IUFD, CHTN); Ultrasound (2/3 complete-hx IUFD, CHTN) 01/28/2024 Transcribe Orders [place] [address] [facility] [address] [place] [address] Esme Aguirre MD related condition, antepartum (Primary Dx) 01/27/2024 Medical Correspondence [address] [place] [address] Scan, Non-Provider [facility] PROVIDER SERVICE REQUEST- OUTPATIENT 01/23/2024 Medical Correspondence [address] [place] [address] Scan, Non-Provider from Last 3 Months Allergies [...] Sex Assigned at Female 06/19/2023 11:52 AM EMPLOYMENT CLERK Legal Sex Female 5:06 AM EMPLOYMENT CLERK Gender Identity Female 06/19/2023 11:52 AM EMPLOYMENT CLERK Sexual Orientation Straight 06/19/2023 11 :52 AM EMPLOYMENT CLERK Last Filed Vital Signs Vital Sign Reading [...] (03/10/2024 12:45 PM CDT) See Scanned Result [employer] NON-INVASIVE SCREENING PREQUEL-Scann ed 03/19/2024 9:56 AM CDT [facility] Blood STRUCTURE OF RIGHT UPPER LIMB / Unknown Venipuncture / Unknown 03/10/2024 12:45 PM CDT 03/10/2024 12:45 PM CDT us Corina Clifton LAB - BLOOD ORDERABLES Final R esult [facility] [address] [place] [address], [facility] [phone] * M US OB Complete 2/3 Tri [...] ? Study Date: ??03/10/2024 11:14am Pat. NO: ??[id number] ?Referring ??MD: ESME CASTILLO Site: ? Machine Carton Marker: Garima Knutson RDMS : ??1990 ?Age: ?? [...] lb 4 ?oz EFW by ? Hadlock ([id number]) Head / Face / Neck Biometry: Operations Executive ?5.0 ? mm CM ? 3.1 ? [...] view. RVOT view. LVOT view. 3-vessel view. 8-ojhano-tkdtlzb view. Ductal arch view. Abdomen ? Kidneys. [...] time of survey. She had a preconception [facility] consult on 08/28/23. Patient is scheduled for a comprehensive survey at [facility] on 03/31. Following this [...] the patient (reviewing medical records/tests), in direct guza-wh-mmcs contact with the patient during her visit with the majority spent counseling and discussing the plan of care and documenting the visit in the electronic medical record. Please see note for details. Procedure Note Libby Kaye MD - 03/10/2024 / Trim ----- Pat. Name: ETIENNE LANGE Study Date: 03/10/2024 11:14am Pat. NO: [id number] Referring MD: ESME CASTILLO Site: Machine Carton Marker: Garima Knutson RDMS : 1990 Age: 33 [...] EFW (lb,oz) 0 lb 4oz EFW by Hadlock([id number]) Head / Face / Neck Biometry: Operations Executive 5.0mm CM 3.1mm Nasal bone 3.4mm ANATOMY [...] 4-chamber view. RVOT view. LVOT view.3-vessel view. 9-wtvyph-nalekkk view. Ductal arch view. Abdomen Kidneys. Genitals. [...] Patient is scheduled for a [facility] on 03/31. Following this [...] see the patient (reviewing medical records/tests), in fugvpbjeek-qe-hdsz contact with the patient during her visit [...] a low lying placenta. Esme Castillo MD [facility] ORDERABLE S Edited Result - Final * Lab Result - HIM Scan (01/23/2024 12:00 AM CDT) 01/23/2024 Provider Outside NON-BEAKER LAB TESTING Final Result * Comprehensive metabolic panel (08/28/2023 3:18 PM CDT) [facility] Sodium 142 135 - 145 [...] Final Result UR LABORATORY [facility] Acute Care Lab [address] [facility] [place] [address] from Last 3 Months or Most Recently Relevant to Health Maintenance Insurance [employer] Care Teams Retail Analytics Manager Relationship Specialty Start Date End Date Raven Laguna MD [facility] [address] [place] [address] PCP - General coffee maker servicer 04/23/23 Lamine Pizarro MD [address] [place] [address] Nephrology 04/23/23
--- OUTSIDE RECORDS SUMMARY | 2024-03-31 08:26 | XMS_ITS | Encounter Summary ---
Author Organization [facility] Address [address] [place] [address] Care Team Providers Care Assembler Knife Name Role Phone Lamine Pizarro MD Unavailable [phone] Raven Laguna MD Primary Care Provider [phone] Reason for Referral * Diagnostic Imaging Ultrasound (Routine) - Pending Review Specialty Diagnoses / Procedures Referred By Contac t Referred To Contact Radiology. Diagnoses related condition, antepartum Procedures MFM US OB Complete 2/3 Tri Single Esme Castillo MD [address] [place] [address] Phone: tel: fax: Referral ID Status Reason Start Date Expiration Date V isits Requested Visits Authorized [id number] Pending Review 01/28/2024 01/27/2025 1 1 * Consultation (Routine: Next available opening) - Pending Review Specialty Diagnoses / Procedures Referred By Kevin t Referred To Contact Diagnoses related condition, antepartum Esme Castillo MD [address] [place] [address] Phone: tel: fax: Referral ID Status Reason Start Date Expiration Date V isits Requested Visits Authorized [id number] Pending Review 01/28/2024 01/27/2025 1 1 Comments HX of IUFD, chronic hypertension * Consultation (Routine) - Pending Review Specialty Diagnoses / Procedures Referred By Contac t Referred To Contact Diagnoses related condition, antepartum Esme Castillo MD [address] [place] [address] Phone: tel: fax: [facility] [address] [place] [address] Phone: tel: fax: Referral ID Status Reason Start Date Expiration Date V isits Requested Visits Authorized [id number] Pending Review 01/28/2024 01/27/2025 1 1 Question Answer MFM Consultation (unrelated to Ultrasound findings) No Genetic Counseling Consultation: No fax [facility] Esme Garcia [phone] Ultrasound Complete US (14-17.6 weeks GA) US PROC NONE Preferred Location: [facility] RODGER 08/31/2024 MFM Issue OTHER (enter details [...] (Latest Contact Info) Description 01/28/2024 Transcribe Orders [facility] [address] [place] [address] Esme Castillo MD [address] [place] [address] related condition, antepartum (Primary Dx) Social History Tobacco Use Types Packs/Day Years Used Date Smoking Tobacco: Former Cigarettes 0.5 2 Adolescent Education Answer Date Record ed Getting School Help Needed Not on file 04/22 Comments No Sex and Gender Information Value Date Recorded Sex Assigned at Female 06/19/2023 11:52 AM HANDS PARTER Legal Sex Female 5:06 AM HANDS PARTER Gender Identity Female 06/19/2023 11:52 AM HANDS PARTER Sexual Orientation Straight 06/19/2023 11 :52 AM HANDS PARTER documented as of this encounter Plan of [...] ? Study Date: ??03/10/2024 11:14am Pat. NO: ??[id number] ?Referring ??MD: ESME CASTILLO Site: ? Cda Teacher: Garima Knutson RDMS : ??1990 ?Age: ?? [...] lb 4 ?oz EFW by ? Hadlock ([id number]) Head / Face / Neck Biometry: Pick Up Driver ?5.0 ? mm CM ? 3.1 ? [...] view. RVOT view. LVOT view. 3-vessel view. 6-ettycx-czjqsxk view. Ductal arch view. Abdomen ? Kidneys. [...] is scheduled for a comprehensive survey at [facility] on 03/31. Following this recommend monthly [...] the patient (reviewing medical records/tests), in direct bcyq-fb-lwcr contact with the patient during her visit with the majority spent counseling and discussing the plan of care and documenting the visit in the electronic medical record. Please see note for details. Procedure Note Libby Kaye MD - 03/10/2024 / 3rd Trim ----- Pat. Name: ETIENNE LANGE Study Date: 03/10/2024 11:14am Pat. NO: [id number] Referring MD: ESME CASTILLO Site: Cda Teacher: Garima Knutson RDMS : 1990 Age: 33 [...] EFW (lb,oz) 0 lb 4oz EFW by Hadlock([id number]) Head / Face / Neck Biometry: Pick Up Driver 5.0mm CM 3.1mm Nasal bone 3.4mm ANATOMY [...] 4-chamber view. RVOT view. LVOT view.3-vessel view. 1-vgrjzh-cskhufz view. Ductal arch view. Abdomen Kidneys. Genitals. [...] Patient is scheduled for a comprehensive surveyat [facility] on 03/31. Following this recommend monthly [...] see the patient (reviewing medical records/tests), in qezjeycikr-zn-cbck contact with the patient during her visit [...] low lying placenta. us Esme Castillo MD [facility] US ORDERABLE S Edited Result - Final documented in this encounter Visit Diagnoses Diagnosis related condition, antepartum- Primary related condition, antepartum documented in this encounter Care Teams Assembler Knife Relationship Specialty Start Date End Date Raven Laguna MD [facility] [address] [place] [address] PCP - General warhead maintenance specialist 04/23/23 Lamine Pizarro MD [address] [place] [address] Nephrology 04/23/23 documented as of this encounter
--- OUTSIDE RECORDS SUMMARY | 2024-03-31 08:26 | XMS_ITS | Clinical Summary ---
Author Organization [place] Address [address] [place] [address] Care Team Providers Care Caustic Strength Inspector Name Role Phone Lamine Pizarro MD Unavailable [phone] Raven Laguna MD Primary Care Provider [phone] Allergies No known active allergies Medications VITAMIN [...] Type Department Care Team Description 03/19/2024 Telephone [facility] [place] [address] [place] [address] Corina Clifton GC Results (Low risk NIPT (XY)) 03/10/2024 12:40 PM CDT Lab [facility] [address] [place] [address] Libby Kaye MD related condition, antepartum; History of IUFD; , supervision, high-risk, second trimester 03/10/2024 11:30 AM CDT Office Visit [facility] [address] [place] [phone] Libby Kaye MD History of IUFD (Primary Dx); Chronic hypertension affecting 03/10/2024 10:15 AM CDT Office Visit [facility] [address] [address] Libby Kaye MD Voles[employer], Mariah, GC History of IUFD (Primary Dx); related condition, antepartum; , supervision, high-risk, second trimester 03/10/2024 10:07 AM CDT - 03/10/2024 11:59 PM CDT Hospital Encounter [place] [address] [address] Libby Kaye MD related condition, antepartum Discharge Disposition: Home or Self Care 03/10/2024 Travel 03/09/2024 Travel 03/05/2024 Travel 03/02/2024 PRE VISIT [facility] [place] [address] [place] [phone] Silvia Narvaez RN Genetic Counseling (Hx IUFD, CHTN); Ultrasound (2/3 complete-hx IUFD, CHTN) 01/28/2024 Transcribe Orders [facility] [place] [address] [place] [phone] Esme Aguirre MD related condition, antepartum (Primary Dx) 01/27/2024 Medical Correspondence M [facility] Information Management [address] [facility] [address] [facility] [address] [place] [address] Scan, Non-Provider [facility] PROVIDER SERVICE REQUEST- OUTPATIENT 01/23/2024 Medical Correspondence M [facility] Information Management [address] [facility] [address] [place] [address] Scan, Non-Provider from Last 3 Months Social [...] Sex Assigned at Female 06/19/2023 11:52 AM SET UP MECHANIC STAMPING MACHINES Legal Sex Female 5:06 AM SET UP MECHANIC STAMPING MACHINES Gender Identity Female 06/19/2023 11:52 AM SET UP MECHANIC STAMPING MACHINES Sexual Orientation Straight 06/19/2023 11 :52 AM SET UP MECHANIC STAMPING MACHINES Last Filed Vital Signs Vital Sign Reading [...] Procedure Name Priority Date/Time Associated Diagnosis Comments [email or web address] NON-INVASIVE SCREENING PREQUEL Routine 03/10/2024 12:45 PM CDT related condition, antepartum History of IUFD , supervision, high-risk, second trimester [facility] US OB COMPLETE 2/3 TRI SINGLE Routine 03/10/2024 12:13 PM CDT related condition, antepartum LAB RESULT - HIM SCAN 01/23/2024 12:00 AM CDT COMPREHENSIVE METABOLIC PANEL Routine 08/28/2023 3:18 PM CDT History of demise, not currently from Last 3 Months or Most Recently Relevant to Health Maintenance Results * [place] Non-Invasive Screening???Prequel (03/10/2024 12:45 PM CDT) See Scanned Result [email or web address] NON-INVASIVE SCREENING PREQUEL-Scann ed 03/19/2024 9:56 AM CDT [facility] Blood STRUCTURE OF RIGHT UPPER LIMB / Unknown Venipuncture / Unknown 03/10/2024 12:45 PM CDT 03/10/2024 12:45 PM CDT us Corina Clifton GC LAB - BLOOD ORDERABLES Final R esult [facility] [employer] [facility] [address] [place] [address], [facility] [phone] * M US OB Complete 2/3 Tri [...] ? Study Date: ??03/10/2024 11:14am Pat. NO: ??[id number] ?Referring ??: ESME CASTILLO Site: ? Water Engineer: Garima Knutson RDMS : ??1990 ?Age: [...] lb 4 ?oz EFW by ? Hadlock ([id number]) Head / Face / Neck Biometry: Analytical Lab Technician ?5.0 ? mm CM ? 3.1 ? [...] view. RVOT view. LVOT view. 3-vessel view. 2-dgfays-pskbopi view. Ductal arch view. Abdomen ? Kidneys. [...] time of survey. She had a preconception [facility] consult on 08/28/23. Patient is scheduled for a comprehensive survey at [facility] on 03/31. Following this recommend monthly [...] the patient (reviewing medical records/tests), in direct misr-gj-gxuz contact with the patient during her visit with the majority spent counseling and discussing the plan of care and documenting the visit in the electronic medical record. Please see note for details. Procedure Note Libby Kaye MD - 03/10/2024 / Trim ----- Pat. Name: ETIENNE LANGE Study Date: 03/10/2024 11:14am Pat. NO: [id number] Referring MD: ESME CASTILLO Site: Water Engineer: Garima Knutson RDMS : 1990 Age: [...] EFW (lb,oz) 0 lb 4oz EFW by Hadlock([id number]) Head / Face / Neck Biometry: Analytical Lab Technician 5.0mm CM 3.1mm Nasal bone 3.4mm ANATOMY [...] 4-chamber view. RVOT view. LVOT view.3-vessel view. 0-xyieir-ptrbnau view. Ductal arch view. Abdomen Kidneys. Genitals. [...] Patient is scheduled for a comprehensive surveyat [facility] on 03/31. Following this recommend monthly [...] see the patient (reviewing medical records/tests), in vzstxgubdc-tk-eqfe contact with the patient during her visit [...] a low lying placenta. Esme Castillo MD [facility] ORDERABLE S Edited Result - Final * Lab Result - HIM Scan (01/23/2024 12:00 AM CDT) 01/23/2024 Provider Outside NON-BEAKER LAB TESTING Final Result * Comprehensive metabolic panel (08/28/2023 3:18 PM CDT) [facility] Sodium 142 135 - 145 mmol/L 08/28/2023 [...] - BLOOD ORDERABLES Final Result UR LABORATORY [facility] Acute Care Lab [address] [place] [address] from Last 3 Months or Most Recently Relevant to Health Maintenance Insurance [facility] Care Teams Caustic Strength Inspector Relationship Specialty Start Date End Date Raven Laguna MD [facility] [address] [place] [address] PCP - General panama hat blocker 04/23/23 Lamine Pizarro MD [address] [place] [address] Nephrology 04/23/23
--- OUTSIDE RECORDS SUMMARY | 2024-03-31 08:27 | XMS_ITS | Clinical Summary ---
Author Organization [employer] [facility] Address [place], [place] [address] Care Team Providers Care Geotechnical Intern Name Role Phone Jyoti Cope DO Primary Care Provider [phone] Allergies Active Allergy Reactions Criticality Noted Date Comments Sulfa (Sulfonamide Antibiotics) *Unknown Unknown 06/27 Medications Medication Sig Dispensed Refills Start Date End Date Status Pruvnoef-Gj-Yum-Fe-FA tab tablet Take 1 Tablet by mouth [...] Description 12/30/2023 11:00 AM CDT Orders Only [facility] [address] [place] [address] Lab, [place] Lab 12/30/2023 7:40 AM CDT E-Visit [facility] [address] [place] [address] Anatoliy Jyotiguy Jackson, DO eVisit for Urinary [...] Routine 12/30/2023 9:10 AM CDT UTI symptoms LICENSED SOCIAL WORKER THIN PREP PAP SCREEN IMAGED Routine [...] [facility] [address] [place] [address], [place] [phone] * (ABNORMAL) URINE CULTURE (12/30/2023 9:10 AM CDT) CULTURE RESULT(A) 01/01/2024 11:05 AM CDT [facility] CULTURE >100,000 CFU/mL Escherichia coli 01/01/2024 11:05 AM CDT [facility] Urine URINE SPECIMEN / [...] NITROFURANTOIN <=16: S Jyoti Cope DO MICROBIOLOGY [facility] [address] [place] [address], [place] * (ABNORMAL) UA W/ SEDIMENT EXAM [...] [facility] [address] [place] [address], * LICENSED SOCIAL WORKER THIN PREP PAP SCREEN IMAGED (03/12/2019 3:17 PM CDT) Case Report Gynecologic Cytology Report ? Case: [id number] ? Authorizing Provider: ??Roslyn Bentley MD ? Collected: ? 03/12/2019 1517 ? Ordering Location: ? [facility] [place] ?Received: ?03/12/2019 1518 ? Clinic ? First Screen: ?Orin Mancuso ? Specimen: ?LICENSED SOCIAL WORKER ThinPrep Vial Screening, Cervical ? 03/23/2019 10:42 AM CDT [facility] INTERPRETATION/ RESULT NEGATIVE FOR INTRAEPITHELIAL LESION OR MALIGNANCY (NIL) (none) 03/23/2019 10:42 AM [facility] LABORATORY-C ENTRAL LABORATORY IMEN ADEQUACY Satisfactory for evaluation Endocervical component present 03/23/2019 10:42 AM CDT [facility] LABORATORY-C ENTRAL LABORATORY HPV REQUEST HPV if ASCUS 03/23/2019 10:42 AM CDT [facility] ENTRID LABORATORY Date of LMP 02/19/2019 03/23/2019 10:42 AM CDT [facility] EN[facility] LABORATORY Last Pap Date at least 5 years ago 03/23/2019 10:42 AM CDT [facility] ENTRAL LABORATORY Last Pap Result First Pap/Unknown 10:42 AM CDT [facility] Abnormal Pap or Morley Bx in last 5 years No 03/23/2019 10:42 AM CDT [facility] Menstrual Status Regular Periods 03/23/2019 10:42 AM CDT [facility] Morley Bx Done Today No 03/23/2019 10:42 AM CDT [facility] Additional Information None given 03/23/2019 10:42 AM CDT [facility] Automated Review Successful 03/23/2019 10:42 AM CDT [facility] Comment:Specimen processed s uccessfully by automated staff weapons officer device, ThinPrep Imaging System, [employer] Note The pap test is a [...] lesions. Cytology is screened and interpreted at [facility] Central Laboratory - [address], [place] [address] and [facility] - [address]; [place] [address] and [facility] - [address]; [place] [address] and [facility] [address]; [place] [address] 03/23/2019 10:42 AM CDT [facility] Other (Cervical) Non-Blood / Unknown 03/12/2019 3:17 PM CDT 03/12/2019 3:18 PM CDT Roslyn Bentley MD PATHOLOGY/CYTOLOGY [facility] LABORATORY-CENTRAL LABORATORY [address] [place] [address], [place] from Last 3 Months or Most Recently Relevant to Health Maintenance Care Teams Geotechnical Intern Relationship Specialty Start Date End Date Jyoti Cope DO [address] [place] [address] PCP - General Family Practice 01/08/23
== END 2024-03-31 08:25 | disposition home or self-care (01) ==
LOC: US 08:24
PROVIDERS: PCP Family Medicine; Visit Provider Obstetrics & Gynecology
DX: O10.912 Unspecified pre-existing hypertension complicating pregnancy, second trimester (principal); Z87.59 Personal history of other complications of pregnancy, childbirth and the puerperium; Z3A.18 18 weeks gestation of pregnancy
CPT/HCPCS: 76811

== ENCOUNTER 2024-04-12 09:04 | Outpatient (CLI) | payer BC, SELFPAY ==
--- OUTSIDE RECORDS SUMMARY | 2024-04-16 02:53 | XMS_ITS | Encounter Summary ---
Author Organization [facility] Address [address] [place] [address] Care Team Providers Care Airline Ticket Agent Name Role Phone Lamine Pizarro MD Unavailable [phone] Raven Laguna MD Primary Care Provider [phone] Encounter Details Date Type Department Care Team [...] Sex Assigned at Female 06/19/2023 11:52 AM PIPE BLANKS CUT OFF SAW OPERATOR Legal Sex Female 5:06 AM PIPE BLANKS CUT OFF SAW OPERATOR Gender Identity Female 06/19/2023 11:52 AM PIPE BLANKS CUT OFF SAW OPERATOR Sexual Orientation Straight 06/19/2023 11 :52 AM PIPE BLANKS CUT OFF SAW OPERATOR documented as of this encounter Plan of Treatment Not on file documented as of this encounter Visit Diagnoses Not on filedocumented in this encounter Care Teams Airline Ticket Agent Relationship Specialty Start Date End Date Raven Laguna MD [facility] [address] [place] [address] PCP - General data processing equipment repairer 04/23/23 Lamine Pizarro MD [address] [place] [address] Nephrology 04/23/23 documented as of this encounter
--- OUTSIDE RECORDS SUMMARY | 2024-04-16 02:53 | XMS_ITS | Encounter Summary ---
Author Organization [place] Address [address] [place] [address] Care Team Providers Care Pigment Making Supervisor Name Role Phone Lamine Pizarro MD Unavailable [phone] Raven Laguna MD Primary Care Provider [phone] Encounter Details Date Type Department Care Team [...] Sex Assigned at Female 06/19/2023 11:52 AM ORCHESTRA DIRECTOR Legal Sex Female 5:06 AM ORCHESTRA DIRECTOR Gender Identity Female 06/19/2023 11:52 AM ORCHESTRA DIRECTOR Sexual Orientation Straight 06/19/2023 11 :52 AM ORCHESTRA DIRECTOR documented as of this encounter Plan of Treatment Not on file documented as of this encounter Visit Diagnoses Not on filedocumented in this encounter Care Teams Pigment Making Supervisor Relationship Specialty Start Date End Date Raven Laguna MD [facility] [address] [place] [address] PCP - General gelatin plant supervisor 04/23/23 Lamine Pizarro MD [address] [place] [address] Nephrology 04/23/23 documented as of this encounter
--- OUTSIDE RECORDS SUMMARY | 2024-04-16 02:53 | XMS_ITS | Clinical Summary ---
Author Organization [place] Address [address] [place] [address]. [place] [address] Care Team Providers Care Office Machine Service Supervisor Name Role Phone Lamine Pizarro MD Unavailable [phone] Raven Laguna MD Primary Care Provider [phone] Allergies No known active allergies Medications VITAMIN [...] Type Department Care Team Description 03/19/2024 Telephone [facility] Maternal Medicine Center [place] [address] [place] [address] Corina Rosenberg GC Results (Low risk NIPT (XY)) 03/10/2024 12:40 PM CDT Lab [facility] [address] [place] [address] Libby Kaye MD related condition, antepartum; History of IUFD; , supervision, high-risk, second trimester 03/10/2024 11:30 AM CDT Office Visit [facility] [place] [address] [place] [address] Libby Kaye MD History of IUFD (Primary Dx); Chronic hypertension affecting 03/10/2024 10:15 AM CDT Office Visit [place] [address] [address] Libby Kaye MD Kottke, Mariah R, GC History of IUFD (Primary Dx); related condition, antepartum; , supervision, high-risk, second trimester 03/10/2024 10:07 AM CDT - 03/10/2024 11:59 PM CDT Hospital Encounter [place] [address] [address] Libby Kaye MD related condition, antepartum Discharge Disposition: Home or Self Care 03/10/2024 Travel 03/09/2024 Travel 03/05/2024 Travel 03/02/2024 PRE VISIT [facility] [place] [address] [address] Silvia Narvaez RN Genetic Counseling (Hx IUFD, CHTN); Ultrasound (2/3 complete-hx IUFD, CHTN) 01/28/2024 Transcribe Orders [place] [address] [phone] Esme Byrne MD related condition, antepartum (Primary Dx) 01/27/2024 Medical Correspondence [facility] Information Management [address] [place] [address] Scan, Non-Provider [facility] PROVIDER SERVICE REQUEST- OUTPATIENT 01/23/2024 Medical Correspondence [facility] Information Management [address] [place] [address] Scan, Non-Provider from Last 3 Months Social [...] Sex Assigned at Female 06/19/2023 11:52 AM LOSS PREVENTION RESEARCH ENGINEER Legal Sex Female 5:06 AM LOSS PREVENTION RESEARCH ENGINEER Gender Identity Female 06/19/2023 11:52 AM LOSS PREVENTION RESEARCH ENGINEER Sexual Orientation Straight 06/19/2023 11 :52 AM LOSS PREVENTION RESEARCH ENGINEER Last Filed Vital Signs Vital Sign Reading [...] ( season) 2024 INFLUENZA VACCINE (#1) 2024 OBGCT (OB) 05/11/2024 BMP 08/27/2024 08/28/2023, 06/30/2009 DTAP/TDAP/TD IMMUNIZATION (8 [...] Procedure Name Priority Date/Time Associated Diagnosis Comments [employer] NON-INVASIVE SCREENING PREQUEL Routine 03/10/2024 12:45 PM [...] Recently Relevant to Health Maintenance Results * [employer] Non-Invasive Screening???Prequel (03/10/2024 12:45 PM CDT) See Scanned Result [employer] NON-INVASIVE SCREENING PREQUEL-Scann ed 03/19/2024 9:56 AM CDT [employer] Blood STRUCTURE OF RIGHT UPPER LIMB / Unknown Venipuncture / Unknown 03/10/2024 12:45 PM CDT 03/10/2024 12:45 PM CDT us Corina Rosenberg GC LAB - BLOOD ORDERABLES Final Result [employer] [address] [place], [place] [address] [phone] * MFM US OB Complete 2/3 Tri Single (03/10/2024 [...] lying placenta. Narrative 03/10/2024 2:18 PM CDT 2nd / 3rd Trim ----- Pat. Name: ETIENNE LANGE Study Date: 03/10/2024 11:14am Pat. NO: [id number] Referring MD: ESME CASTILLO Site: Tie Buyer: Garima Knutson RDMS : 1990 Age: 33 ----- INDICATION ----- History of IUFD. Chronic hypertension - no meds. METHOD ----- Transabdominal ultrasound examination. View: Suboptimal view: limited by position. Suboptimal view: limited by early gestational age. ----- Morales . Number of fetuses: 1 DATING ----- Date Details Gest. age RODGER LMP 11/25/2023 Cycle: irregular cycle 15 w + 1 d 08/31/2024 Previous U/S 01/22/2024 GA, GA 8 w + 0 d 14 w + 6 d 09/02/2024 U/S 03/10/2024 based upon AC, BPD, Femur, HC 15 w + 0 d 09/01/2024 Assigned dating based on ultrasound (GA), selected on 03/10/2024 14 w + 6 d 09/02/2024 GENERAL EVALUATION ----- Cardiac activity present. FHR 151 bpm. movements: visualized. Presentation: tranverse with head to maternal left. Placenta: Posterior, low lying Umbilical cord: 3 vessel cord Amniotic fluid: Amount of AF: normal. MVP 5.2 cm BIOMETRY ----- BPD 29.8 mm 15w 3d Hadlock OFD 37.8 mm -/- Nicolaides HC 107.6 mm 15w 1d Hadlock Cerebellum tr 14.4 mm 14w 3d Nicolaides AC 87.0 mm 15w 0d 58% Hadlock Femur 15.3 mm 14w 4d Hadlock Humerus 15.0 mm 14w 1d Stephany Weight Calculation: EFW 107 g 32% Hadlock EFW (lb,oz) 0 lb 4 oz EFW by Keri ([id number]) Head / Face / Neck Biometry: Personnel Scheduler 5.0 mm CM 3.1 mm Nasal bone 3.4 mm ANATOMY ----- The following structures appear normal: Head / Neck Cranium. Head size. Head shape. Lateral ventricles. Choroid plexus. Midline falx. Cerebellum. Cisterna magna. Parenchyma. Thalami. Vermis. Neck. Face Profile. Nose. Maxilla. Mandible. Orbits. Lens. Heart / Thorax Situs. Aortic arch view. Bicaval view. Superior vena cava. Inferior vena cava. Cardiac position. Cardiac size. Cardiac rhythm. Right lung. Left lung. Diaphragm. Abdomen Abdom. wall. Cord insertion. Stomach. Bladder. Liver. Bowel. Spine Cervical spine. Thoracic spine. Extremities / Skeleton Arms. Right arm. Right hand. Left arm. Left hand. Legs. Right leg. Left leg. The following structures could not be adequately visualized: Head / Neck Cavum septi pellucidi. Nuchal fold. Face Lips. Heart / Thorax 4-chamber view. RVOT view. LVOT view. 3-vessel view. 4-qpohhj-zswerlx view. Ductal arch view. Abdomen Kidneys. Genitals. Spine Lumbar spine. Sacral spine. Extremities / Skeleton Right foot. Left foot. sex: male. MATERNAL STRUCTURES ----- Cervix Visualized Appearance: normal Approach - Transabdominal: Cervical length 35.2 mm Right Ovary Visualized Left [...] time of survey. She had a preconception [facility] consult on 08/28/23. Patient is scheduled for a comprehensive survey at [facility] on 03/31. Following this recommend monthly [...] the patient (reviewing medical records/tests), in direct xnlj-pz-qimx contact with the patient during her visit with the majority spent counseling and discussing the plan of care and documenting the visit in the electronic medical record. Please see note for details. Procedure Note Libby Kaye MD - 03/10/2024 2nd / 3rd Trim ----- Pat. Name: ETIENNE LANGE Study Date: 03/10/2024 11:14am Pat. NO: [id number] Referring MD: ESME CASTILLO Site: Tie Buyer: Garimadeonna Knutson RDMS : 1990 Age: 33 ----- [...] EFW (lb,oz) 0 lb 4oz EFW by Hadlock([id number]) Head / Face / Neck Biometry: Personnel Scheduler 5.0mm CM 3.1mm Nasal bone 3.4mm ANATOMY [...] 4-chamber view. RVOT view. LVOT view.3-vessel view. 2-xzbwtf-rgoijvc view. Ductal arch view. Abdomen Kidneys. Genitals. [...] Patient is [facility] a [facility] on 03[facility]. Following this recommend monthly [...] see the patient (reviewing medical records/tests), in jypuvguabu-nb-cjxn contact with the patient during her visit [...] a low lying placenta. Esme Castillo MD [facility] Edited Result - Final * Lab Result - HIM Scan (01/23/2024 12:00 AM CDT) 01/23/[address] [facility] NON-BEAKER LAB TESTING Final Result * Comprehensive metabolic panel (08/28/2023 3:18 PM CDT) [facility] Sodium 142 135 - 145 [...] CDT Stefano Livingston MD LAB - BLOOD ORDERABLES Final Result UR LABORATORY [facility] Acute Care Lab [address] [place] [address], [facility] from Last 3 Months or Most Recently Relevant to Health Maintenance Insurance [employer] [facility] Care Teams Office Machine Service Supervisor Relationship Specialty Start Date End Date Raven Laguna MD NPI: [id number] [place] [id number] PCP - General skin care specialist 04/23/23 Lamine Pizarro MD [address] [place] [address] Nephrology 04/23/23
--- OUTSIDE RECORDS SUMMARY | 2024-04-16 02:53 | XMS_ITS | Referral Summary ---
Author Organization [place] Address [address] [place] [address] Care Team Providers Care Paper Machine Backtender Name Role Phone Lamine Pizarro MD Unavailable [phone] Raven Laguna MD Primary Care Provider [phone] Encounters Date Type Department Care Team Description 03/19/[address] [facility] Maternal Medicine [facility] [address] [place] [address] Corina Rosenberg GC Results (Low risk NIPT (XY)) 03/10/2024 12:40 PM CDT Lab [facility] [address] [place] [address] Libby Kaye MD related condition, antepartum; History of IUFD; , supervision, high-risk, second trimester 03/10/2024 Travel 03/10/2024 11:30 AM CDT Office Visit [facility] Maternal Medicine [facility] [address] [place] [phone] Libby Kaye MD History of IUFD (Primary Dx); Chronic hypertension affecting 03/10/2024 10:07 AM CDT - 03/10/2024 11:59 PM CDT Hospital Encounter [facility] Medicine [facility] [address] [facility] [address] [place] [phone] Libby Kaye MD related condition, antepartum Discharge Disposition: Home or Self Care 03/10/2024 10:15 AM CDT Office Visit [facility] [address] [place] [address] Libby Kaye MD Kottke, Mariah R, GC History of IUFD (Primary Dx); related condition, antepartum; , supervision, high-risk, second trimester 03/09/2024 Travel 03/05/2024 Travel 03/02/2024 PRE VISIT [facility] Medicine [facility] [address] [place] [address] Silvia Narvaez RN Genetic Counseling (Hx IUFD, CHTN); Ultrasound (2/3 complete-hx IUFD, CHTN) 01/28/2024 Transcribe Orders [place] [address] [place] [address] Esme Byrne MD related condition, antepartum (Primary Dx) 01/27/2024 Medical Correspondence [address] [place] [address] Scan, Non-Provider [facility] MEDICINE [place] PROVIDER SERVICE REQUEST- OUTPATIENT 01/23/2024 Medical Correspondence [address] [place] [address] Scan, Non-Provider from Last 3 Months Allergies [...] Sex Assigned at Female 06/19/2023 11:52 AM YARD CONDUCTOR Legal Sex Female 5:06 AM YARD CONDUCTOR Gender Identity Female 06/19/2023 11:52 AM YARD CONDUCTOR Sexual Orientation Straight 06/19/2023 11 :52 AM YARD CONDUCTOR Last Filed Vital Signs Vital Sign Reading [...] Procedure Name Priority Date/Time Associated Diagnosis Comments [employer] NON-INVASIVE SCREENING PREQUEL Routine 03/10/2024 12:45 PM CDT related condition, antepartum History of IUFD , supervision, high-risk, second trimester [facility] US OB COMPLETE 2/3 TRI SINGLE Routine 03/10/2024 12:13 PM CDT related condition, antepartum LAB RESULT - HIM SCAN 01/23/2024 12:00 AM CDT COMPREHENSIVE METABOLIC PANEL Routine 08/28/2023 3:18 PM CDT History of demise, not currently from Last 3 Months or Most Recently Relevant to Health Maintenance Results * [employer] Non-Invasive Screening???Prequel (03/10/2024 12:45 PM CDT) See Scanned Result [employer] NON-INVASIVE SCREENING PREQUEL-Scann ed 03/19/2024 9:56 AM CDT [facility] Blood STRUCTURE OF RIGHT UPPER LIMB / Unknown Venipuncture / Unknown 03/10/2024 12:45 PM CDT 03/10/2024 12:45 PM CDT us Corina Rosenberg LAB - BLOOD ORDERABLES Final Result [facility] [address] [place] [address], [facility] [phone] * M US OB Complete 2/3 Tri [...] LANGE Study Date: 03/10/2024 11:14am Pat. NO: [id number] Referring MD: ESME CASTILLO Site: Purchasing Director: Garima Knutson RDMS : 1990 Age: 33 [...] (lb,oz) 0 lb 4 oz EFW by Hadlock ([id number]) Head / Face / Neck Biometry: Blender Helper 5.0 mm CM 3.1 mm Nasal bone [...] view. RVOT view. LVOT view. 3-vessel view. 8-fqhhyl-uaedlcg view. Ductal arch view. Abdomen Kidneys. Genitals. [...] time of survey. She had a preconception [facility] consult on 08/28/23. Patient is scheduled for a comprehensive survey at [facility] on 03/31. Following this recommend monthly [...] the patient (reviewing medical records/tests), in direct usdq-bn-vltv contact with the patient during her visit with the majority spent counseling and discussing the plan of care and documenting the visit in the electronic medical record. Please see note for details. Procedure Note Libby Kaye MD - 03/10/2024 / Trim ----- Pat. Name: ETIENNE LANGE Study Date: 03/10/2024 11:14am Pat. NO: [id number] Referring MD: ESME CASTILLO Site: Purchasing Director: Garima Knutson RDMS : 1990 Age: 33 [...] EFW (lb,oz) 0 lb 4oz EFW by Hadlock([id number]) Head / Face / Neck Biometry: Blender Helper 5.0mm CM 3.1mm Nasal bone 3.4mm ANATOMY [...] 4-chamber view. RVOT view. LVOT view.3-vessel view. 9-vdvaju-jnpqvyd view. Ductal arch view. Abdomen Kidneys. Genitals. [...] at time of survey.She had a preconception [facility] consult on 08/28/23. Patient is scheduled for a comprehensive [facility]at [facility] on 03/31. Following this recommend monthly [...] see the patient (reviewing medical records/tests), in qgdifptvao-ft-qngc contact with the patient during her visit [...] a low lying placenta. Esme Castillo MD [facility] US ORDERABLE S Edited Result - Final * Lab Result - HIM Scan (01/23/2024 12:00 AM CDT) 01/23/2024 Provider [facility] NON-BEAKER LAB TESTING Final Result * Comprehensive metabolic panel (08/28/2023 3:18 PM CDT) [facility] Sodium 142 135 - 145 mmol/L 08/28/2023 [...] - BLOOD ORDERABLES Final Result UR LABORATORY [facility] Acute Care Lab [address] [place] [address], [facility] from Last 3 Months or Most Recently Relevant to Health Maintenance Insurance [facility] Care Teams Paper Machine Backtender Relationship Specialty Start Date End Date Raven Laguna MD [address] [address] PCP - General straw hat brusher 04/23/23 Lamine Pizarro MD [address] [place] [address] Nephrology 04/23/23
--- OUTSIDE RECORDS SUMMARY | 2024-04-16 02:53 | XMS_ITS | Encounter Summary ---
Author Organization [place] Address [address] [place] [address]. [place] [address] Care Team Providers Care Sat Tutor Name Role Phone Lamine Pizarro MD Unavailable [phone] Raven Laguna MD Primary Care Provider [phone] Reason for Visit * Reason Comments Ultrasound L2-hx IUFD, CHTN Encounter Details Date Type Department Care Team (Late st Contact Info) Description 03/10/2024 11:30 AM CDT Office Visit [facility] Maternal Medicine Center [place] [address] [place] [address] Libby Kaye MD [address] [facility] [address] [place] [address] History of IUFD (Primary Dx); [...] Assigned at Female 06/19/2023 11:52 AM MANAGER RADIATION Legal Sex Female 5:06 AM MANAGER RADIATION Gender Identity Female 06/19/2023 11:52 AM MANAGER RADIATION Sexual Orientation Straight 06/19/2023 11 :52 AM MANAGER RADIATION documented as of this encounter Progress Notes * Libby Kaye MD - 03/10/2024 11:30 AM CDT Please see Imaging tab under Chart Review for details of today's visit. Libby Kaye documented in this encounter Nursing Notes * Silvia Narvaez, RN - 03/10/2024 11:30 AM CDT Darius presents to [facility] for 2/3 complete ultrasound due to history of IUFD and CHTN. Patient denies contractions, leaking of fluid, or bleeding. SBAR given to [facility] MD, see their note in Epic. documented in this encounter Plan of Treatment Not on file documented as of this encounter Visit Diagnoses Diagnosis History of IUFD- Primary Chronic hypertension affecting documented in this encounter Care Teams Sat Tutor Relationship Specialty Start Date End Date Raven Laguna MD [address] [address] PCP - General group exercise class instructor 04/23/23 Lamine Pizarro MD [address] [place] [address] Nephrology 04/23/23 documented as of this encounter
--- OUTSIDE RECORDS SUMMARY | 2024-04-16 02:53 | XMS_ITS | Encounter Summary ---
Author Organization [place] Address [address] [place] [address]. [place] [address] Care Team Providers Care Catastrophe Claims Supervisor Name Role Phone Lamine Pizarro MD Unavailable [phone] Raven Laguna MD Primary Care Provider [phone] Reason for Visit * Reason Onset Date Comments Results 03/19/2024 Low risk NIPT (X Y) Encounter Details Date Type Department Care Team (Late st Contact Info) Description 03/19/2024 Telephone [facility] Maternal Medicine Center [place] [address] [place] [address] Corina Rosenberg GC MATERNAL MEDICINE [address] [facility], [facility] [address] [place] [address] Results (Low risk NIPT (XY)) [...] Sex Assigned at Female 06/19/2023 11:52 AM ARMATURE AND ROTOR WINDER Legal Sex Female 5:06 AM ARMATURE AND ROTOR WINDER Gender Identity Female 06/19/2023 11:52 AM ARMATURE AND ROTOR WINDER Sexual Orientation Straight 06/19/2023 11 :52 AM ARMATURE AND ROTOR WINDER documented as of this encounter Miscellaneous Notes [...] primary OB to review. Corina Clifton MS, [facility] Certified and Licensed Genetic Counselor [facility] Maternal Medicine Office: [phone] [facility]: [phone] [facility] documented in this encounter Plan of Treatment Not on file documented as of this encounter Visit Diagnoses Not on filedocumented in this encounter Care Teams Catastrophe Claims Supervisor Relationship Specialty Start Date End Date Raven Laguna MD [facility] [address] [place] [address] PCP - General char conveyor tender 04/23/23 Lamine Pizarro MD [address] [place] [address] Nephrology 04/23/23 documented as of this encounter
--- OUTSIDE RECORDS SUMMARY | 2024-04-16 02:53 | XMS_ITS | Encounter Summary ---
Author Organization [place] Address [address] [place] [address] Care Team Providers Care Net Sorter Name Role Phone Lamine Pizarro MD Unavailable [phone] Raven Laguna MD Primary Care Provider [phone] Reason for Visit * Reason Comments Genetic Counseling * Consultation (Routine: Next available opening) - Pending Review Specialty Diagnoses / Procedures Referred By Kevin montalvo Referred To Contact Diagnoses related condition, antepartum Esme Ramirez MD [address] [place] [address] Phone: tel: fax: Referral ID Status Reason Start Date Expiration Date V isits Requested Visits Authorized [id number] Pending Review 01/28/2024 01/27/2025 1 1 Encounter Details Date Type Department Care Team (Late st Contact Info) Description 03/10/2024 10:15 AM CDT Office Visit [facility] Maternal Medicine Center [place] [address] [facility] [address] [facility] [address] [place] [address] Libby Kaye MD [address] [facility] [address] [place], [place] [address] Corina Rosenberg GC MATERNAL MEDICINE [address] [place], [facility] [address] [place], [place] [address] History of IUFD (Primary Dx); related condition, [...] Sex Assigned at Female 06/19/2023 11:52 AM PROFESSOR IN FAMILY STUDIES Legal Sex Female 5:06 AM PROFESSOR IN FAMILY STUDIES Gender Identity Female 06/19/2023 11:52 AM PROFESSOR IN FAMILY STUDIES Sexual Orientation Straight 06/19/2023 11 :52 AM PROFESSOR IN FAMILY STUDIES documented as of this encounter Progress Notes * Corina Clifton, [place]TE[place] - 03/10/2024 10:15 AM CDT [facility] Maternal Medicine Center Genetic Counseling Consult Patient: Darius Lange Preferred Name: Darius Date of : 1990 Date of Service: 03/10/24 Darius was seen at the [facility] Maternal Medicine Center for genetic consultation. The indication for genetic counseling is desire to discuss options for genetic screening and diagnostics and discuss the history of the IUFD in Darius's previous . The patient was accompanied to this visit by their Isaac. The session was conducted in [employer]. IMPRESSION/ PLAN 1. Darius has not had genetic screening in this but elected to have screening today. 2. During today's [facility] visit, Darius had a blood draw for expanded non-invasive testing (also called NIPT, NIPS, or cell-free DNA) through [employer] (prequel). The expanded NIPT screens for trisomy [...] results, including sex, will be available in [employer]. 3. Darius had a early second trimester anatomy ultrasound today. Please see the ultrasound reportfor further details. 5. Further recommendations include a anatomy level II ultrasound with [facility]. Darius reports this ultrasound has already been scheduled with a [facility] physician when they rotate to [facility]. HISTORY /Parity: Darius's history is significant [...] is scanned under the Media tab in [employer]. The family history was reported by Darius [...] individuals (generally male) being most severely affected. screening was reviewed. About [place] Screening The [...] a pleasure to be involved with Darius???s [facility]. Fciu-ah-ldau time of the meeting was 45 minutes. Corina Clifton GC, MS, [facility] Board Certified and [place] Licensed Genetic Counselor [facility] Maternal Medicine Office: [phone] [facility]: [phone] [facility] documented in this encounter Plan of Treatment Not on file documented as of this encounter Results * [facility] Non-Invasive Screening???Prequel (03/10/2024 12:45 PM CDT) See Scanned Result [employer] NON-INVASIVE SCREENING PREQUEL-Scann ed 03/19/2024 9:56 AM CDT [employer] Blood STRUCTURE OF RIGHT UPPER LIMB / Unknown Venipuncture / Unknown 03/10/2024 12:45 PM CDT 03/10/2024 12:45 PM CDT us Corina Rosenberg GC LAB - BLOOD ORDERABLES Final Result [employer] [address] [place] [address], [facility] [phone] documented in this encounter Visit Diagnoses Diagnosis History of IUFD- Primary related condition, antepartum , supervision, high-risk, second trimester documented in this encounter Care Teams Net Sorter Relationship Specialty Start Date End Date Raven Laguna MD [facility] [address] [place] [address] PCP - General community arts centre manager 04/23/23 Lamine Pizarro MD [address] [place] [address] Nephrology 04/23/23 documented as of this encounter
--- OUTSIDE RECORDS SUMMARY | 2024-04-16 02:53 | XMS_ITS | Encounter Summary ---
Author Organization [facility] Address [address] [place] [address]. [place] [address] Care Team Providers Care Executive Director Contract Shop Name Role Phone Lamine Pizarro MD Unavailable [phone] Raven Laguna MD Primary Care Provider [phone] Encounter Details Date Type Department Care Team (Late st Contact Info) Description 03/10/2024 12:40 PM CDT Lab [facility] [address] [place] [phone] Libby Kaye MD [address] [facility] [address] [place] [address] related condition, antepartum; History of [...] Sex Assigned at Female 06/19/2023 11:52 AM ENGLISH COMPOSITION TEACHER Legal Sex Female 5:06 AM ENGLISH COMPOSITION TEACHER Gender Identity Female 06/19/2023 11:52 AM ENGLISH COMPOSITION TEACHER Sexual Orientation Straight 06/19/2023 11 :52 AM ENGLISH COMPOSITION TEACHER documented as of this encounter Plan of Treatment Not on file documented as of this encounter Procedures Procedure Name Priority Date/Time Associated Diagnosis Comments [facility] NON-INVASIVE SCREENING PREQUEL Routine 03/10/2024 12:45 PM CDT related condition, antepartum History of IUFD , supervision, high-risk, second trimester documented in this encounter Results * [facility] Non-Invasive Screening???Prequel (03/10/2024 12:45 PM CDT) See Scanned Result [facility] NON-INVASIVE SCREENING PREQUEL-Scann ed 03/19/2024 9:56 AM CDT [facility] Blood STRUCTURE OF RIGHT UPPER LIMB / Unknown Venipuncture / Unknown 03/10/2024 12:45 PM CDT 03/10/2024 12:45 PM CDT us Corina [facility] LAB - BLOOD ORDERABLES Final Result [facility] [address] [place] [address], [facility] [phone] documented in this encounter Visit Diagnoses Diagnosis related condition, antepartum History of IUFD , supervision, high-risk, second trimester documented in this encounter Care Teams Executive Director Contract Shop Relationship Specialty Start Date End Date Raven Laguna MD [facility] [address] [place] [address] PCP - General transplant coordinator 04/23/23 Lamine Pizarro MD [address] [place] [address] Nephrology 04/23/23 documented as of this encounter
--- OUTSIDE RECORDS SUMMARY | 2024-04-16 02:53 | XMS_ITS | Encounter Summary ---
Author Organization [facility] Address [address] [place] [address]. [place] [address] Care Team Providers Care Field Care Coordinator Name Role Phone Lamine Pizarro MD Unavailable [phone] Raven Laguna MD Primary Care Provider [phone] Reason for Visit * Reason Comments Genetic Counseling Hx IUFD, CHTN Ultrasound 2/3 complete-hx IUFD , CHTN Encounter Details Date Type Department Care Team (Late st Contact Info) Description 03/02/2024 PRE VISIT [facility] [place] [address] [facility] [address] [place] [address] Silvia Narvaez RN Genetic Counseling [...] Sex Assigned at Female 06/19/2023 11:52 AM WEEKEND CAREGIVER Legal Sex Female 5:06 AM WEEKEND CAREGIVER Gender Identity Female 06/19/2023 11:52 AM WEEKEND CAREGIVER Sexual Orientation Straight 06/19/2023 11 :52 AM WEEKEND CAREGIVER documented as of this encounter Plan of Treatment Not on file documented as of this encounter Visit Diagnoses Not on filedocumented in this encounter Care Teams Field Care Coordinator Relationship Specialty Start Date End Date Raven Laguna MD [facility] [address] [place] [address] PCP - General freight checker 04/23/23 Lamine Pizarro MD [address] [place] [address] Nephrology 04/23/23 documented as of this encounter
--- OUTSIDE RECORDS SUMMARY | 2024-04-16 02:53 | XMS_ITS | Encounter Summary ---
Author Organization [facility] Address [address] [place] [address] Care Team Providers Care Information And Data Architect Analyst Name Role Phone Lamine Pizarro MD Unavailable [phone] Raven Laguna MD Primary Care Provider [phone] Encounter Details Date Type Department Care Team [...] Sex Assigned at Female 06/19/2023 11:52 AM LIME KILN WORKER Legal Sex Female 5:06 AM LIME KILN WORKER Gender Identity Female 06/19/2023 11:52 AM LIME KILN WORKER Sexual Orientation Straight 06/19/2023 11 :52 AM LIME KILN WORKER documented as of this encounter Plan of Treatment Not on file documented as of this encounter Visit Diagnoses Not on filedocumented in this encounter Care Teams Information And Data Architect Analyst Relationship Specialty Start Date End Date Raven Laguna MD [facility] [address] [place] [address] PCP - General ranch hand 04/23/23 Lamine Pizarro MD [address] [place] [address] Nephrology 04/23/23 documented as of this encounter
--- OUTSIDE RECORDS SUMMARY | 2024-04-16 02:53 | XMS_ITS | Encounter Summary ---
Author Organization [facility] Address [address] [place] [address] Care Team Providers Care Direct Care Provider Name Role Phone Lamine Pizarro MD Unavailable [phone] Raven Laguna MD Primary Care Provider [phone] Reason for Referral * Diagnostic Imaging Ultrasound (Routine) - Pending Review Specialty Diagnoses / Procedures Referred By Contac t Referred To Contact Radiology. Diagnoses related condition, antepartum Procedures MFM US OB Complete 2/3 Tri Single Esme Castillo MD [address] [place] [address] Phone: tel: fax: Referral ID Status Reason Start Date Expiration Date V isits Requested Visits Authorized [id number] Pending Review 01/28/2024 01/27/2025 1 1 Reason for Visit * Diagnostic Imaging Ultrasound (Routine) - Pending Review Specialty Diagnoses / Procedures Referred By Contac t Referred To Contact Radiology. Diagnoses related condition, antepartum Procedures MFM US OB Complete 2/3 Tri Single Esme Castillo MD [address] [place] [address] Phone: tel: fax: Referral ID Status Reason Start Date Expiration Date V isits Requested Visits Authorized [id number] Pending Review 01/28/2024 01/27/2025 1 1 Encounter Details Date Type Department Care Team (Latest Contact Info) Description 03/10/2024 10:07 AM CDT - 03/10/2024 11:59 PM CDT Hospital Encounter [facility] [place] [address] [facility] [address] [place] [address] Libby Kaye MD [address] [place] [address] [place] [address] related condition, antepartum Discharge Disposition: [...] Assigned at Female 06/19/2023 11:52 AM COFFEE WEIGHER Legal Sex Female 5:06 AM COFFEE WEIGHER Gender Identity Female 06/19/2023 11:52 AM COFFEE WEIGHER Sexual Orientation Straight 06/19/2023 11 :52 AM COFFEE WEIGHER documented as of this encounter Medications at [...] Procedure Name Priority Date/Time Associated Diagnosis Comments [facility] US OB COMPLETE 2/3 TRI SINGLE Routine 03/10/2024 12:13 PM CDT related condition, antepartum documented in this encounter Results * [facility] US OB Complete 2/3 Tri Single [...] lying placenta. Narrative 03/10/2024 2:18 PM CDT Trim ----- Pat. Name: ETIENNE LANGE Study Date: 03/10/2024 11:14am Pat. NO: [id number] Referring MD: ESME CASTILLO Site: Drawing In Machine Tender Helper: Garima Kntuson RDMS : 1990 Age: 33 ----- INDICATION [...] 0 lb 4 oz EFW by Hadlock ([id number]) Head / Face / Neck Biometry: Special Education Resource Room Teacher 5.0 mm CM 3.1 mm Nasal bone [...] view. RVOT view. LVOT view. 3-vessel view. 9-yhhgeb-wafacqc view. Ductal arch view. Abdomen Kidneys. Genitals. [...] time of survey. She had a preconception [facility] consult on 08/28/23. Patient is scheduled for a comprehensive survey at [facility] on 03/31. Following this recommend [...] the patient (reviewing medical records/tests), in direct rxap-kg-cgiu contact with the patient during her visit with the majority spent counseling and discussing the plan of care and documenting the visit in the electronic medical record. Please see note for details. Procedure Note Libby Kaye MD - 03/10/2024 / 3rd Trim ----- Pat. Name: ETIENNE LANGE Study Date: 03/10/2024 11:14am Pat. NO: [id number] Referring MD: ESME CASTILLO Site: Drawing In Machine Tender Helper: Garima Knutson RDMS : 1990 Age: 33 [...] EFW (lb,oz) 0 lb 4oz EFW by Hadlock([id number]) Head / Face / Neck Biometry: Special Education Resource Room Teacher 5.0mm CM 3.1mm Nasal bone 3.4mm ANATOMY [...] 4-chamber view. RVOT view. LVOT view.3-vessel view. 4-vcwspc-qnnsols view. Ductal arch view. Abdomen Kidneys. Genitals. [...] Patient is scheduled for a comprehensive [facility]at [facility] on 03/31. Following this recommend [...] see the patient (reviewing medical records/tests), in vlsiqancsd-uk-wbks contact with the patient during her visit [...] low lying placenta. us Esme Castillo MD [facility] US ORDERABLE S Edited Result - Final documented in this encounter Visit Diagnoses Diagnosis related condition, antepartum documented in this encounter Care Teams Direct Care Provider Relationship Specialty Start Date End Date Raven Laguna MD [address] [address] PCP - General tractor operator laser leveling 04/23/23 Lamine Pizarro MD [address] [place], [place] [address] Nephrology 04/23/23 documented as of this encounter
--- OUTSIDE RECORDS SUMMARY | 2024-04-16 02:54 | XMS_ITS | Encounter Summary ---
Author Organization [facility] Address [address] [place] [address] Care Team Providers Care Regional Business Manager Name Role Phone Lamine Pizarro MD Unavailable [phone] Raven Laguna MD Primary Care Provider [phone] Reason for Referral * Diagnostic Imaging Ultrasound (Routine) - Pending Review Specialty Diagnoses / Procedures Referred By Contac t Referred To Contact Radiology. Diagnoses related condition, antepartum Procedures MFM US OB Complete 2/3 Tri Single Esme Castillo MD [address] [place] [address] Phone: tel: fax: Referral ID Status Reason Start Date Expiration Date V isits Requested Visits Authorized [id number] Pending Review 01/28/2024 01/27/2025 1 1 * Consultation (Routine: Next available opening) - Pending Review Specialty Diagnoses / Procedures Referred By Kevin t Referred To Contact Diagnoses related condition, antepartum Esme Castillo MD [address] [place] [address] Phone: tel: fax: Referral ID Status Reason Start Date Expiration Date V isits Requested Visits Authorized [id number] Pending Review 01/28/2024 01/27/2025 1 1 Comments HX of IUFD, chronic hypertension * Consultation (Routine) - Pending Review Specialty Diagnoses / Procedures Referred By Contac t Referred To Contact Diagnoses related condition, antepartum Esme Castillo MD [address] [place] [address] Phone: tel: fax: [facility] Medicine [facility] [address] [facility] [address] [place] [address] Phone: tel: fax: Referral ID Status Reason Start Date Expiration Date V isits Requested Visits Authorized [id number] Pending Review 01/28/2024 01/27/2025 1 1 Question Answer MFM Consultation (unrelated to Ultrasound findings) No Genetic Counseling Consultation: No fax [facility] Esme Garcia [phone] Ultrasound Complete US (14-17.6 weeks GA) US PROC NONE Preferred Location: [facility] [place] RODGER 08/31/2024 MFM Issue OTHER (enter details [...] (Latest Contact Info) Description 01/28/2024 Transcribe Orders [facility] Medicine [facility] [address] [facility] [address] [place] [address] Esme Castillo MD [address] [place] [address] related condition, antepartum (Primary Dx) Social History Tobacco Use Types Packs/Day Years Used Date Smoking Tobacco: Former Cigarettes 0.5 2 Adolescent Education Answer Date Record ed Getting School Help Needed Not on file 04/22 Comments No Sex and Gender Information Value Date Recorded Sex Assigned at Female 06/19/2023 11:52 AM STRINGED INSTRUMENT TUNER Legal Sex Female 5:06 AM STRINGED INSTRUMENT TUNER Gender Identity Female 06/19/2023 11:52 AM STRINGED INSTRUMENT TUNER Sexual Orientation Straight 06/19/2023 11 :52 AM STRINGED INSTRUMENT TUNER documented as of this encounter Plan of Treatment Scheduled Referrals Name Type Priority Associated Diagnoses Orde r Schedule [facility] Referral - Referral Routine related condition, antepartum Expected: 03/09/2024 (Approximate), Expires: 07/26/2024 [facility] Genetic Counseling Referral Routine: Next available opening related condition, antepartum Expected: 03/09/2024 (Approximate), Expires: 01/27/2025 documented as of this encounter Results * [facility] US OB Complete 2/3 Tri Single (03/10/2024 [...] LANGE Study Date: 03/10/2024 11:14am Pat. NO: [id number] Referring MD: ESME CASTILLO Site: Feather Mixer: Garima Knutson RDMS : 1990 Age: 33 [...] 0 lb 4 oz EFW by Hadlock ([id number]) Head / Face / Neck Biometry: Manager Statistics 5.0 mm CM 3.1 mm Nasal bone [...] view. RVOT view. LVOT view. 3-vessel view. 3-krwoqi-wiskhlr view. Ductal arch view. Abdomen Kidneys. Genitals. [...] time of survey. She had a preconception [facility] consult on 08/28/23. Patient is scheduled for a comprehensive survey at [facility] on 03/31. Following this recommend [...] the patient (reviewing medical records/tests), in direct dmjx-bt-gegr contact with the patient during her visit with the majority spent counseling and discussing the plan of care and documenting the visit in the electronic medical record. Please see note for details. Procedure Note Libby Kaye MD - 03/10/2024 Trim ----- Pat. Name: ETIENNE LANGE Study Date: 03/10/2024 11:14am Pat. NO: [id number] Referring MD: ESME CASTILLO Site: Feather Mixer: Garima Knutson RDMS : 1990 Age: 33 [...] EFW (lb,oz) 0 lb 4oz EFW by Hadlock([id number]) Head / Face / Neck Biometry: Manager Statistics 5.0mm CM 3.1mm Nasal bone 3.4mm ANATOMY [...] 4-chamber view. RVOT view. LVOT view.3-vessel view. 8-jiujgs-uxjkuux view. Ductal arch view. Abdomen Kidneys. Genitals. [...] at time of survey.She had a preconception [facility] consult on 08/28/23. Patient is scheduled for a comprehensive [facility]at [facility] on 03/31. Following this recommend [...] see the patient (reviewing medical records/tests), in zjmkvbgwnb-zb-fvgl contact with the patient during her visit [...] low lying placenta. us Esme Castillo MD [facility] US ORDERABLE S Edited Result - Final documented in this encounter Visit Diagnoses Diagnosis related condition, antepartum- Primary related condition, antepartum documented in this encounter Care Teams Regional Business Manager Relationship Specialty Start Date End Date Raven Laguna MD [address] [address] PCP - General fourdrinier tender 04/23/23 Lamine Pizarro MD [address] [place] [address] Nephrology 04/23/23 documented as of this encounter
--- OUTSIDE RECORDS SUMMARY | 2024-04-16 02:54 | XMS_ITS | Encounter Summary ---
Author Organization [facility] Address [address] [place] [address] Care Team Providers Care Head Porter Name Role Phone Lamine Pizarro MD Unavailable [phone] Raven Laguna MD Primary Care Provider [phone] Encounter Details Date Type Department Care Team (Late st Contact Info) Description 01/23/2024 Medical Correspondence [facility] Information Management [address] [place] [address] [address] [place] [address] Scan, Non-Provider Social History Tobacco Use Types Packs/Day Years Used Date Smoking Tobacco: Former Cigarettes 0.5 2 Adolescent Education Answer Date Record ed Getting School Help Needed Not on file 04/22 Comments No Sex and Gender Information Value Date Recorded Sex Assigned at Female 06/19/2023 11:52 AM TOLL COLLECTOR Legal Sex Female 5:06 AM TOLL COLLECTOR Gender Identity Female 06/19/2023 11:52 AM TOLL COLLECTOR Sexual Orientation Straight 06/19/2023 11 :52 AM TOLL COLLECTOR documented as of this encounter Plan of Treatment Not on file documented as of this encounter Visit Diagnoses Not on filedocumented in this encounter Care Teams Head Porter Relationship Specialty Start Date End Date Raven Laguna MD [facility] [address] [place] [address] PCP - General supervisor sawing and assembly 04/23/23 Lamine Pizarro MD [address] [place] [address] Nephrology 04/23/23 documented as of this encounter
--- OUTSIDE RECORDS SUMMARY | 2024-04-16 02:54 | XMS_ITS | Clinical Summary ---
Author Organization [facility] Address [place], [place] [address] Care Team Providers Care Regrinder Name Role Phone Jyoti Cope DO Primary Care Provider [phone] Allergies Active Allergy Reactions Criticality Noted Date Comments Sulfa (Sulfonamide Antibiotics) *Unknown Unknown 06/27 Medications Medication Sig Dispensed Refills Start Date End Date Status Zeocblwv-Hm-Uqz-Fe-FA tab tablet Take 1 Tablet by mouth [...] 99 09/16/2023 10:54 AM CDT Temperature 36.9 C (98.4 F) 12/16/2022 8:29 AM CDT Respiratory Rate 20 12/01/2018 12:03 PM CDT [...] Procedure Name Priority Date/Time Associated Diagnosis Comments DIETETIC INTERN THIN PREP PAP SCREEN IMAGED Routine 03/12/2019 3:17 PM CDT Routine general medical examination at health care facility Screening for malignant neoplasm of cervix from Last 3 Months or Most Recently Relevant to Health Maintenance Results * DIETETIC INTERN THIN PREP PAP SCREEN IMAGED (03/12/2019 3:17 PM CDT) Case Report Gynecologic Cytology Report Case: [id number] Authorizing Provider: Roslyn Bentley MD Collected: 03/12/2019 1517 Ordering Location: [facility] Received: 03/12/2019 1518 Clinic First Screen: Orin Mancuso Specimen: DIETETIC INTERN ThinPrep Vial Screening, Cervical 03/23/2019 10:42 AM CDT [facility] INTERPRETATION/ RESULT NEGATIVE FOR INTRAEPITHELIAL LESION OR MALIGNANCY (NIL) (none) 03/23/2019 10:42 AM CDT [facility] IMEN ADEQUACY Satisfactory for evaluation Endocervical component present 03/23/2019 10:42 AM CDT [facility] HPV REQUEST HPV if ASCUS 03/23/2019 10:42 AM CDT [facility] Date of LMP 02/19/2019 03/23/2019 10:42 AM CDT [facility] Last Pap Date at least 5 years ago 03/23/2019 10:42 AM CDT [facility] Last Pap Result First Pap/Unknown 10:42 AM CDT [facility] Abnormal Pap or Thornton Bx in last 5 years No 03/23/2019 10:42 AM CDT [facility] Menstrual Status Regular Periods 03/23/2019 10:42 AM CDT [facility] Thornton Bx Done Today No 03/23/2019 10:42 AM CDT [facility] Additional Information None given 03/23/2019 10:42 AM CDT [facility] Automated Review Successful 03/23/2019 10:42 AM CDT [facility] Comment:Specimen processed s uccessfully by automated unhairing machine operator device, ThinPrep Imaging System, [employer] Note The pap test is a screening technique, not a diagnostic procedure. It is used primarily to screen for squamous cancers and precursor lesions. Published studies have shown that it is subject to both false negative and false positive results. The pap test should not be used as the sole means to diagnose or exclude pre-malignant and malignant lesions. Cytology is screened and interpreted at [facility] - [address], [place] [address] and [facility] - [address]; [place] [address] and [facility] - [address]; [place] [address] and [facility] [address]; [place] [address] 03/23/2019 10:42 AM CDT [facility] Other (Cervical) Non-Blood / Unknown 03/12/2019 3:17 PM CDT 03/12/2019 3:18 PM CDT Roslyn Bentley MD PATHOLOGY/CYTOLOGY [facility] [address] [place] [address], [place] from Last 3 Months or Most Recently Relevant to Health Maintenance Care Teams Regrinder Relationship Specialty Start Date End Date Jyoti Cope DO [address] [place] [address] PCP - General Family Practice 01/08/23
--- OUTSIDE RECORDS SUMMARY | 2024-04-16 02:54 | XMS_ITS | Encounter Summary ---
Author Organization [facility] Address [address] [place] [address] Care Team Providers Care Sheet Heater Helper Name Role Phone Lamine Pizarro MD Unavailable [phone] Raven Laguna MD Primary Care Provider [phone] Encounter Details Date Type Department Care Team (Latest Contact Info) Description 01/27/2024 Medical Correspondence [facility] Information Management [address] [place] [address] [address] [place] [address] Scan, Non-Provider [facility] PROVIDER SERVICE REQUEST- OUTPATIENT Social History Tobacco Use Types Packs/Day Years Used Date Smoking Tobacco: Former Cigarettes 0.5 2 Adolescent Education Answer Date Record ed Getting School Help Needed Not on file 04/22 Comments No Sex and Gender Information Value Date Recorded Sex Assigned at Female 06/19/2023 11:52 AM AIR CARGO GROUND CREW SUPERVISOR Legal Sex Female 5:06 AM AIR CARGO GROUND CREW SUPERVISOR Gender Identity Female 06/19/2023 11:52 AM AIR CARGO GROUND CREW SUPERVISOR Sexual Orientation Straight 06/19/2023 11 :52 AM AIR CARGO GROUND CREW SUPERVISOR documented as of this encounter Plan of Treatment Not on file documented as of this encounter Visit Diagnoses Not on filedocumented in this encounter Care Teams Sheet Heater Helper Relationship Specialty Start Date End Date Raven Laguna MD [facility] [address] [place] [address] PCP - General c consultant 04/23/23 Lamine Pizarro MD [address] [place] [address] Nephrology 04/23/23 documented as of this encounter
== END 2024-04-12 09:05 | disposition home or self-care (01) ==
LOC: NFLDREF 04-16 02:52
PROVIDERS: PCP Family Medicine; Referring Provider Family Medicine; Visit Provider Internal Medicine Nephrology
DX: R80.9 Proteinuria, unspecified (principal)
CPT/HCPCS: 82565; 82570; 84156; 87086

== ENCOUNTER 2024-04-16 11:00 | Outpatient (RCR) | payer BC, SELFPAY | END 2024-08-14 23:59 | disposition home or self-care (01) | PROVIDERS: PCP Family Medicine; Visit Provider Obstetrics & Gynecology | DX: M62.08 Separation of muscle (nontraumatic), other site (principal); N80.9 Endometriosis, unspecified; Z34.90 Encounter for supervision of normal pregnancy, unspecified, unspecified trimester; R27.8 Other lack of coordination; Z51.89 Encounter for other specified aftercare | CPT/HCPCS: 82570; 84156; 97110; 97140; 97162; 97535 ==

== ENCOUNTER 2024-04-28 10:37 | Outpatient (CLI) | payer BC, SELFPAY ==
--- OUTSIDE RECORDS SUMMARY | 2024-04-28 10:39 | XMS_ITS | Referral Summary ---
Author Organization [place] Address [address] [place] [address] Care Team Providers Care Fire Behavior Analyst Name Role Phone Lamine Pizarro MD Unavailable [phone] Raven Laguna MD Primary Care Provider [phone] Encounters Date Type Department Care Team Description 03/19/2024 Telephone [facility] Maternal Medicine [facility] [address] [place] [phone] Corina Rosenberg GC Results (Low risk NIPT (XY)) 03/10/2024 12:40 PM CDT Lab [facility] [address] [place] [address] Libby Kaye MD related condition, antepartum; History of IUFD; , supervision, high-risk, second trimester 03/10/2024 Travel 03/10/2024 11:30 AM CDT Office Visit [facility] Maternal Medicine [facility] [address] [place] [phone] Libby Kaye MD History of IUFD (Primary Dx); Chronic hypertension affecting 03/10/2024 10:07 AM CDT - 03/10/2024 11:59 PM CDT Hospital Encounter [facility] Medicine [facility] [address] [place] [phone] Libby Kaye MD related condition, antepartum Discharge Disposition: Home or Self Care 03/10/2024 10:15 AM CDT Office Visit [facility] [address] [place] [phone] Libby Kaye MD Kottke, Mariah R, GC History of IUFD (Primary Dx); related condition, antepartum; , supervision, high-risk, second trimester 03/09/2024 Travel 03/05/2024 Travel 03/02/2024 PRE VISIT [facility] Medicine [facility] [address] [place] [address] Silvia Narvaez RN Genetic Counseling (Hx IUFD, CHTN); Ultrasound (2/3 complete-hx IUFD, CHTN) 01/28/2024 Transcribe Orders [facility] [address] [place] [phone] Esme Stanford MD related condition, antepartum (Primary Dx) from Last 3 Months Allergies [...] Sex Assigned at Female 06/19/2023 11:52 AM POURER CRANE LADLE Legal Sex Female 5:06 AM POURER CRANE LADLE Gender Identity Female 06/19/2023 11:52 AM POURER CRANE LADLE Sexual Orientation Straight 06/19/2023 11 :52 AM POURER CRANE LADLE Last Filed Vital Signs Vital Sign Reading [...] Procedure Name Priority Date/Time Associated Diagnosis Comments Payward NON-INVASIVE SCREENING PREQUEL Routine 03/10/2024 12:45 PM CDT related condition, antepartum History of IUFD , supervision, high-risk, second trimester [facility] US OB COMPLETE 2/3 TRI SINGLE Routine 03/10/2024 12:13 PM CDT related condition, antepartum COMPREHENSIVE METABOLIC PANEL Routine 08/28/2023 3:18 PM CDT History of demise, not currently from Last 3 Months or Most Recently Relevant to Health Maintenance Results * [email or web address] Non-Invasive Screening???Prequel (03/10/2024 12:45 PM CDT) See Scanned Result MYRIAD NON-INVASIVE SCREENING PREQUEL-Scann ed 03/19/2024 9:56 AM CDT [facility] Blood STRUCTURE OF RIGHT UPPER LIMB / Unknown Venipuncture / Unknown 03/10/2024 12:45 PM CDT 03/10/2024 12:45 PM CDT us Corina Rosenberg LAB - BLOOD ORDERABLES Final Result [facility] [place] [address], [facility] [phone] * MFM US OB Complete 2/3 Tri [...] LANGE Study Date: 03/10/2024 11:14am Pat. NO: [id number] Referring MD: ESME CASTILLO Site: Aluminum Pool Installer: Garima Knutson RDMS : 1990 Age: 33 [...] 0 lb 4 oz EFW by Hadlock ([id number]) Head / Face / Neck Biometry: Teacher Visually Impaired 5.0 mm CM 3.1 mm Nasal bone [...] view. RVOT view. LVOT view. 3-vessel view. 9-dfigvx-pizexwk view. Ductal arch view. Abdomen Kidneys. Genitals. [...] time of survey. She had a preconception [facility] consult on 08/28/23. Patient is scheduled for a comprehensive survey at [facility] on 03/31. Following this recommend monthly [...] the patient (reviewing medical records/tests), in direct exkl-so-peqg contact with the patient during her visit with the majority spent counseling and discussing the plan of care and documenting the visit in the electronic medical record. Please see note for details. Procedure Note Libby Kaye MD - 03/10/2024 Trim ----- Pat. Name: ETIENNE LANGE Study Date: 03/10/2024 11:14am Pat. NO: [id number] Referring MD: ESME CASTILLO Site: Aluminum Pool Installer: Garima Knutson RDMS : 1990 Age: 33 [...] EFW (lb,oz) 0 lb 4oz EFW by Hadlock([id number]) Head / Face / Neck Biometry: Teacher Visually Impaired 5.0mm CM 3.1mm Nasal bone 3.4mm ANATOMY [...] 4-chamber view. RVOT view. LVOT view.3-vessel view. 1-sernlf-evlgxlv view. Ductal arch view. Abdomen Kidneys. Genitals. [...] Patient [facility]. Following this recommend monthly [...] see the patient (reviewing medical records/tests), in tddcogdrsr-fa-olyi contact with the patient during her visit [...] low lying placenta. us Esme Castillo MD [facility] ORDERABLE S Edited Result - Final * Comprehensive metabolic panel (08/28/2023 3:18 PM CDT) [facility] Sodium 142 135 - 145 mmol/L [...] - BLOOD ORDERABLES Final Result UR LABORATORY [facility] Acute Care Lab [address] [place] [address] from Last 3 Months or Most Recently Relevant to Health Maintenance [facility] Care Teams Fire Behavior Analyst Relationship Specialty Start Date End Date Raven Laguna MD [facility] [address] [place] [address] PCP - General progressive die maker 04/23/23 Lamine iPzarro MD [address] [place] [address] Nephrology 04/23/23
--- OUTSIDE RECORDS SUMMARY | 2024-04-28 10:39 | XMS_ITS | Encounter Summary ---
Author Organization [place] Address [address] [place] [address] Care Team Providers Care Comparative Sociology Professor Name Role Phone Lamine Pizarro MD Unavailable [phone] Raven Laguna MD Primary Care Provider [phone] Encounter Details Date Type Department Care Team [...] Sex Assigned at Female 06/19/2023 11:52 AM BIG DATA ENGINEER Legal Sex Female 5:06 AM BIG DATA ENGINEER Gender Identity Female 06/19/2023 11:52 AM BIG DATA ENGINEER Sexual Orientation Straight 06/19/2023 11 :52 AM BIG DATA ENGINEER documented as of this encounter Plan of Treatment Not on file documented as of this encounter Visit Diagnoses Not on filedocumented in this encounter Care Teams Comparative Sociology Professor Relationship Specialty Start Date End Date Raven Laguna MD [facility] [address] [place] [address] PCP - General customer solutions representative 04/23/23 Lamine Pizarro MD [address] [place] [address] Nephrology 04/23/23 documented as of this encounter
--- OUTSIDE RECORDS SUMMARY | 2024-04-28 10:39 | XMS_ITS | Encounter Summary ---
Author Organization [place] Address [address] [place] [address]. [place] [address] Care Team Providers Care Pile Header Name Role Phone Lamine Pizarro MD Unavailable [phone] Raven Laguna MD Primary Care Provider [phone] Encounter Details Date Type Department Care Team (Late st Contact Info) Description 03/10/2024 12:40 PM CDT Lab [facility] [address] [place] [phone] Libby Kaye MD [address] [facility] [address] [place] [address] related condition, antepartum; History of [...] Sex Assigned at Female 06/19/2023 11:52 AM BRIDGE CREW MEMBER Legal Sex Female 5:06 AM BRIDGE CREW MEMBER Gender Identity Female 06/19/2023 11:52 AM BRIDGE CREW MEMBER Sexual Orientation Straight 06/19/2023 11 :52 AM BRIDGE CREW MEMBER documented as of this encounter Plan of Treatment Not on file documented as of this encounter Procedures Procedure Name Priority Date/Time Associated Diagnosis Comments MY[facility]AD NON-INVASIVE SCREENING PREQUEL Routine 03/10/2024 12:45 PM CDT related condition, antepartum History of IUFD , supervision, high-risk, second trimester documented in this encounter Results * Mar[facility]ana Non-Invasive Screening???Prequel (03/10/2024 12:45 PM CDT) See Scanned Result [facility] NON-INVASIVE SCREENING PREQUEL-Scann ed 03/19/2024 9:56 AM CDT [facility] Blood STRUCTURE OF RIGHT UPPER LIMB / Unknown Venipuncture / Unknown 03/10/2024 12:45 PM CDT 03/10/2024 12:45 PM CDT us Corina Rosenberg GC LAB - BLOOD ORDERABLES Final Result [facility] [address] [place] [address], [facility] [phone] documented in this encounter Visit Diagnoses Diagnosis related condition, antepartum History of IUFD , supervision, high-risk, second trimester documented in this encounter Care Teams Pile Header Relationship Specialty Start Date End Date Raven Laguna MD [facility] [address] [place] [address] PCP - General blanker press operator 04/23/23 Lamine Pizarro MD [address] [place] [address] Nephrology 04/23/23 documented as of this encounter
--- OUTSIDE RECORDS SUMMARY | 2024-04-28 10:39 | XMS_ITS | Clinical Summary ---
Author Organization [place] Address [address] [place] [address] Care Team Providers Care Medical Advisor Name Role Phone Lamine Pizarro MD Unavailable [phone] Raven Laguna MD Primary Care Provider [phone] Allergies No known active allergies Medications VITAMIN [...] Type Department Care Team Description 03/19/2024 Telephone [facility] M[facility] Medicine [facility] [place] [address] [place] [address] Corina Rosenberg GC Results (Low risk NIPT (XY)) 03/10/2024 12:40 PM CDT Lab [facility] [address] [place] [address] Libby Kaye MD related condition, antepartum; History of IUFD; , supervision, high-risk, second trimester 03/10/2024 11:30 AM CDT Office Visit [facility] [address] [place] [address] Libby Kaye MD History of IUFD (Primary Dx); Chronic hypertension affecting 03/10/2024 10:15 AM CDT Office Visit [place] [address] [address] Libby Kaye MD Kottke, Mariah R, GC History of IUFD (Primary Dx); related condition, antepartum; , supervision, high-risk, second trimester 03/10/2024 10:07 AM CDT - 03/10/2024 11:59 PM CDT Hospital Encounter [place] [address] [address] Libby Kaye MD related condition, antepartum Discharge Disposition: Home or Self Care 03/10/2024 Travel 03/09/2024 Travel 03/05/2024 Travel 03/02/[address] [facility] [place] [address] [address] Silvia Narvaez RN Genetic Counseling (Hx IUFD, CHTN); Ultrasound (2/3 complete-hx IUFD, CHTN) 01/28/2024 Transcribe Orders [place] [address] [phone] Esme Stanford MD related condition, antepartum (Primary Dx) from Last 3 Months Social [...] Sex Assigned at Female 06/19/2023 11:52 AM RIB BUILDER Legal Sex Female 5:06 AM RIB BUILDER Gender Identity Female 06/19/2023 11:52 AM RIB BUILDER Sexual Orientation Straight 06/19/2023 11 :52 AM RIB BUILDER Last Filed Vital Signs Vital Sign Reading [...] Procedure Name Priority Date/Time Associated Diagnosis Comments Target Data NON-INVASIVE SCREENING PREQUEL Routine 03/10/2024 12:45 PM CDT related condition, antepartum History of IUFD , supervision, high-risk, second trimester [facility] US OB COMPLETE 2/3 TRI SINGLE Routine 03/10/2024 12:13 PM CDT related condition, antepartum COMPREHENSIVE METABOLIC PANEL Routine 08/28/2023 3:18 PM CDT History of demise, not currently from Last 3 Months or Most Recently Relevant to Health Maintenance Results * [facility] [employer] Non-Invasive Screening???Prequel (03/10/2024 12:45 PM CDT) See Scanned Result [employer] NON-INVASIVE SCREENING PREQUEL-Scann ed 03/19/2024 9:56 AM CDT [facility] Blood STRUCTURE OF RIGHT UPPER LIMB / Unknown Venipuncture / Unknown 03/10/2024 12:45 PM CDT 03/10/2024 12:45 PM CDT us Corina Rosenberg GC LAB - BLOOD ORDERABLES Final Result [facility] [address] [place] [address], [facility] [phone] * [facility] US OB Complete 2/3 Tri [...] PM CDT Trim ----- Pat. Name: ETIENNE CAMARILLO Study Date: 03/10/2024 11:14am Pat. 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 RVOT view. LVOT view. 3-vessel view. 1-pkntpz-zkiqdvo view. Ductal arch view. Abdomen Kidneys. Genitals. [...] time of survey. She had a preconception [facility] consult on 08/28/23. Patient is scheduled for a comprehensive survey at [facility] on 03/31. Following this recommend monthly growth [...] the patient (reviewing medical records/tests), in direct pwjl-en-wkpx contact with the patient during her visit with the majority spent counseling and discussing the plan of care and documenting the visit in the electronic medical record. Please see note for details. Procedure Note Libby Kaye MD - 03/10/2024 / Trim ----- Pat. Name: ETIENNE CAMARILLO Study Date: 03/10/2024 11:14am Pat. 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 RVOT view. LVOT view.3-vessel view. 8-luklqa-bpihsny view. Ductal arch view. Abdomen Kidneys. Genitals. [...] is [facility] a [facility] on [facility]. Following this recommend monthly growthultrasounds [...] see the patient (reviewing medical records/tests), in xbaqewjkrq-wg-mpky contact with the patient during her visit [...] is a low lying placenta. us Esme Ramirez MD [facility] ORDERABLE S Edited Result - Final * Comprehensive metabolic panel (08/28/2023 3:18 PM CDT) [facility] Sodium 142 135 - 145 mmol/L [...] - BLOOD ORDERABLES Final Result UR LABORATORY [facility] Acute Care Lab [address] [place] [address], [facility] from Last 3 Months or Most Recently Relevant to Health Maintenance Insurance [employer] [facility] [employer] [facility] Care Teams Medical Advisor Relationship Specialty Start Date End Date Raven Laguna MD [facility] [address] [address] PCP - General still pump operator 04/23/23 Lamine Pizarro MD [address] [place] [address] Nephrology 04/23/23
--- OUTSIDE RECORDS SUMMARY | 2024-04-28 10:39 | XMS_ITS | Encounter Summary ---
Author Organization [place] Address [address] [place] [address]. [place] [address] Care Team Providers Care Truck Bench Mechanic Name Role Phone Lamine Pizarro MD Unavailable [phone] Raven Laguna MD Primary Care Provider [phone] Reason for Visit * Reason Onset Date Comments Results 03/19/2024 Low risk NIPT (X Y) Encounter Details Date Type Department Care Team (Late st Contact Info) Description 03/19/2024 Telephone [facility] Maternal Medicine Center [place] [address] [facility] [place] [address] Corina Rosenberg GC MATERNAL MEDICINE [address] [facility] [address] [place] [address] Results (Low risk NIPT (XY)) [...] Sex Assigned at Female 06/19/2023 11:52 AM PLASTERER JOURNEYMAN Legal Sex Female 5:06 AM PLASTERER JOURNEYMAN Gender Identity Female 06/19/2023 11:52 AM PLASTERER JOURNEYMAN Sexual Orientation Straight 06/19/2023 11 :52 AM PLASTERER JOURNEYMAN documented as of this encounter Miscellaneous Notes [...] primary OB to review. Corina Clifton MS, [facility] Certified and Licensed Genetic Counselor [facility] Maternal Medicine Office: [phone] [facility]: [phone] [facility] documented in this encounter Plan of Treatment Not on file documented as of this encounter Visit Diagnoses Not on filedocumented in this encounter Care Teams Truck Bench Mechanic Relationship Specialty Start Date End Date Raven Laguna MD [facility] [address] [place] [address] PCP - General global engineering manager 04/23/23 Lamine Pizarro MD [address] [place] [address] Nephrology 04/23/23 documented as of this encounter
--- OUTSIDE RECORDS SUMMARY | 2024-04-28 10:40 | XMS_ITS | Encounter Summary ---
Author Organization [place] Address [address] [place] [address] Care Team Providers Care Well Reactivator Operator Name Role Phone Lamine Pizarro MD Unavailable [phone] Raven Laguna MD Primary Care Provider [phone] Encounter Details Date Type Department Care Team [...] Sex Assigned at Female 06/19/2023 11:52 AM HOSE MENDER Legal Sex Female 5:06 AM HOSE MENDER Gender Identity Female 06/19/2023 11:52 AM HOSE MENDER Sexual Orientation Straight 06/19/2023 11 :52 AM HOSE MENDER documented as of this encounter Plan of Treatment Not on file documented as of this encounter Visit Diagnoses Not on filedocumented in this encounter Care Teams Well Reactivator Operator Relationship Specialty Start Date End Date Raven Laguna MD [facility] [address] [place] [address] PCP - General aircraft engine mechanic 04/23/23 Lamine Pizarro MD [address] [place] [address] Nephrology 04/23/23 documented as of this encounter
--- OUTSIDE RECORDS SUMMARY | 2024-04-28 10:40 | XMS_ITS | Clinical Summary ---
Author Organization [facility] Address [place], [place] [address] Care Team Providers Care Cook Ship Name Role Phone Jyoti Cope DO Primary Care Provider [phone] Allergies Active Allergy Reactions Criticality Noted Date Comments Sulfa (Sulfonamide Antibiotics) *Unknown Unknown 06/27 Medications Medication Sig Dispensed Refills Start Date End Date Status Vqptcuoe-Mh-Xpv-Fe-FA tab tablet Take 1 Tablet by mouth [...] Procedure Name Priority Date/Time Associated Diagnosis Comments ELECTRONICS TECHNICIAN THIN PREP PAP SCREEN IMAGED Routine 03/12/2019 3:17 PM CDT Routine general medical examination at health care facility Screening for malignant neoplasm of cervix from Last 3 Months or Most Recently Relevant to Health Maintenance Results * ELECTRONICS TECHNICIAN THIN PREP PAP SCREEN IMAGED (03/12/2019 3:17 PM CDT) Case Report Gynecologic Cytology Report Case: [id number] Authorizing Provider: Roslyn Bentley MD Collected: 03/12/2019 1517 Ordering Location: [facility] Received: 03/12/2019 1518 Clinic First Screen: Orin Mancuso Specimen: ELECTRONICS TECHNICIAN ThinPrep Vial Screening, Cervical 03/23/2019 10:42 AM CDT [facility] INTERPRETATION/ RESULT NEGATIVE FOR INTRAEPITHELIAL LESION OR MALIGNANCY (NIL) (none) 03/23/2019 10:42 AM CDT [facility] IMEN ADEQUACY Satisfactory for evaluation Endocervical component present 03/23/2019 10:42 AM CDT [facility] HPV REQUEST HPV if ASCUS 03/23/2019 10:42 AM CDT [facility] Date of LMP 02/19/2019 03/23/2019 10:42 AM CDT [facility] Last Pap Date at least 5 years ago 03/23/2019 10:42 AM CDT [facility] Last Pap Result First Pap/Unknown 10:42 AM CDT [facility] Abnormal Pap or Chloride Bx in last 5 years No 03/23/2019 10:42 AM CDT [facility] Menstrual Status Regular Periods 03/23/2019 10:42 AM CDT [facility] Chloride Bx Done Today No 03/23/2019 10:42 AM CDT [facility] Additional Information None given 03/23/2019 10:42 AM CDT [facility] Automated Review Successful 03/23/2019 10:42 AM CDT [facility] Comment:Specimen processed s uccessfully by automated etymology teacher device, ThinPrep Imaging System, [employer] Note The pap test is a [...] lesions. Cytology is screened and interpreted at [facility] - [address], [place] [address] and [facility] - [address]; [place] [address] and [facility] - [address]; [place] [address] and [facility] [address]; [place] [address] 03/23/2019 10:42 AM CDT [facility] ENTRAL LABORATORY Other (Cervical) Non-Blood / Unknown 03/12/2019 3:17 PM CDT 03/12/2019 3:18 PM CDT Roslyn Bentley MD PATHOLOGY/CYTOLOGY [facility] [address] [place] [address], [place] from Last 3 Months or Most Recently Relevant to Health Maintenance Care Teams Cook Ship Relationship Specialty Start Date End Date Jyoti Cope DO [address] [place] [address] PCP - General Family Practice 01/08/23
--- OUTSIDE RECORDS SUMMARY | 2024-04-28 10:40 | XMS_ITS | Encounter Summary ---
Author Organization [place] Address [address] [place] [address] Care Team Providers Care Rider Ticket Worker Name Role Phone Lamien Pizarro MD Unavailable [phone] Raven Laguna MD Primary Care Provider [phone] Reason for Referral * Diagnostic Imaging Ultrasound (Routine) - Pending Review Specialty Diagnoses / Procedures Referred By Contac t Referred To Contact Radiology. Diagnoses related condition, antepartum Procedures MFM US OB Complete 2/3 Tri Single Esme Castillo MD [address] [place] [address] Phone: tel: fax: Referral ID Status Reason Start Date Expiration Date V isits Requested Visits Authorized [id number] Pending Review 01/28/2024 01/27/2025 1 1 Reason for Visit * Diagnostic Imaging Ultrasound (Routine) - Pending Review Specialty Diagnoses / Procedures Referred By Contac t Referred To Contact Radiology. Diagnoses related condition, antepartum Procedures MFM US OB Complete 2/3 Tri Single Esme Castillo MD [address] [place] [address] Phone: tel: fax: Referral ID Status Reason Start Date Expiration Date V isits Requested Visits Authorized [id number] Pending Review 01/28/2024 01/27/2025 1 1 Encounter Details Date Type Department Care Team (Latest Contact Info) Description 03/10/2024 10:07 AM CDT - 03/10/2024 11:59 PM CDT Hospital Encounter [facility] [place] [address] [facility] [address] [place] [address] Libby Kaye MD [address] [place] [address] [place] [address] related condition, antepartum Discharge Disposition: [...] Sex Assigned at Female 06/19/2023 11:52 AM IDENTITY ACCESS MANAGEMENT ARCHITECT Legal Sex Female 5:06 AM IDENTITY ACCESS MANAGEMENT ARCHITECT Gender Identity Female 06/19/2023 11:52 AM IDENTITY ACCESS MANAGEMENT ARCHITECT Sexual Orientation Straight 06/19/2023 11 :52 AM IDENTITY ACCESS MANAGEMENT ARCHITECT documented as of this encounter Medications at [...] Procedure Name Priority Date/Time Associated Diagnosis Comments [facility] US OB COMPLETE 2/3 TRI SINGLE Routine 03/10/2024 12:13 PM CDT related condition, antepartum documented in this encounter Results * [facility] US OB Complete 2/3 Tri Single [...] LANGE Study Date: 03/10/2024 11:14am Pat. 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 RVOT view. LVOT view. 3-vessel view. 1-ejqdcf-kizzwsc view. Ductal arch view. Abdomen Kidneys. Genitals. [...] time of survey. She had a preconception [facility] consult on 08/28/23. Patient is scheduled for a comprehensive survey at [facility] on 03/31. Following this recommend monthly [...] the patient (reviewing medical records/tests), in direct qsvr-hi-jdif contact with the patient during her visit with the majority spent counseling and discussing the plan of care and documenting the visit in the electronic medical record. Please see note for details. Procedure Note Libby Kaye MD - 03/10/2024 / 3rd Trim ----- Pat. Name: ETIENNE LANGE Study Date: 03/10/2024 11:14am Pat. 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 RVOT view. LVOT view.3-vessel view. 5-kvfohg-abcsafr view. Ductal arch view. Abdomen Kidneys. Genitals. [...] Patient is scheduled for a comprehensive [facility]. Following this recommend monthly [...] see the patient (reviewing medical records/tests), in zhljbzyxnn-hx-yvbi contact with the patient during her visit [...] low lying placenta. us Esme Castillo MD [facility] S Edited Result - Final documented in this encounter Visit Diagnoses Diagnosis related condition, antepartum documented in this encounter Care Teams Rider Ticket Worker Relationship Specialty Start Date End Date Raven Laguna MD [address] [address] PCP - General ramp boss 04/23/23 Lamine Pizarro MD [address] [place], [place] [address] Nephrology 04/23/23 documented as of this encounter
--- OUTSIDE RECORDS SUMMARY | 2024-04-28 10:40 | XMS_ITS | Encounter Summary ---
Author Organization [place] Address [address] [place] [address]. [place] [address] Care Team Providers Care Hematology Oncology Consultant Name Role Phone Lamine Pizarro MD Unavailable [phone] Raven Laguna MD Primary Care Provider [phone] Reason for Visit * Reason Comments Ultrasound L2-hx IUFD, CHTN Encounter Details Date Type Department Care Team (Late st Contact Info) Description 03/10/2024 11:30 AM CDT Office Visit [facility] [place] [address] [facility] [address] [place] [address] Libby Kaye MD [address] [facility] [address] [place] [address] History of IUFD (Primary Dx); [...] Assigned at Female 06/19/2023 11:52 AM DIRECTOR OF HOSPITALITY Legal Sex Female 5:06 AM DIRECTOR OF HOSPITALITY Gender Identity Female 06/19/2023 11:52 AM DIRECTOR OF HOSPITALITY Sexual Orientation Straight 06/19/2023 11 :52 AM DIRECTOR OF HOSPITALITY documented as of this encounter Progress Notes * Libby Kaye MD - 03/10/2024 11:30 AM CDT Please see Imaging tab under Chart Review for details of today's visit. Libby Kaye documented in this encounter Nursing Notes * Silvia Narvaez, RN - 03/10/2024 11:30 AM CDT Darius presents to [facility] for 2/3 complete ultrasound due to history of IUFD and CHTN. Patient denies contractions, leaking of fluid, or bleeding. SBAR given to [facility] MD, see their note in Epic. documented in this encounter Plan of Treatment Not on file documented as of this encounter Visit Diagnoses Diagnosis History of IUFD- Primary Chronic hypertension affecting documented in this encounter Care Teams Hematology Oncology Consultant Relationship Specialty Start Date End Date Raven Laguna MD [address] [address] PCP - General erp manager 04/23/23 Lamine Pizarro MD [address] [place] [address] Nephrology 04/23/23 documented as of this encounter
--- OUTSIDE RECORDS SUMMARY | 2024-04-28 10:40 | XMS_ITS | Encounter Summary ---
Author Organization [place] Address [address] [place] [address] Care Team Providers Care Asic Engineer Name Role Phone Lamine Pizarro MD Unavailable Raven Laguna MD Primary Care Provider [phone] Reason for Referral * Diagnostic Imaging Ultrasound (Routine) - Pending Review Specialty Diagnoses / Procedures Referred By Contac t Referred To Contact Radiology. Diagnoses related condition, antepartum Procedures MFM US OB Complete 2/3 Tri Single Esme Castillo MD [address] [place] [address] Phone: tel: fax: Referral ID Status Reason Start Date Expiration Date V isits Requested Visits Authorized [id number] Pending Review 01/28/2024 01/27/2025 1 1 * Consultation (Routine: Next available opening) - Pending Review Specialty Diagnoses / Procedures Referred By Kevin t Referred To Contact Diagnoses related condition, antepartum Esme Castillo MD [address] [place] [address] Phone: tel: fax: Referral ID Status Reason Start Date Expiration Date V isits Requested Visits Authorized [id number] Pending Review 01/28/2024 01/27/2025 1 1 Comments HX of IUFD, chronic hypertension * Consultation (Routine) - Pending Review Specialty Diagnoses / Procedures Referred By Contac t Referred To Contact Diagnoses related condition, antepartum Esme Castillo MD [address] [place] [address] Phone: tel: fax: [facility] Medicine [facility] [address] [facility] [address] [place] [address] Phone: tel: fax: Referral ID Status Reason Start Date Expiration Date V isits Requested Visits Authorized [id number] Pending Review 01/28/2024 01/27/2025 1 1 Question Answer MFM Consultation (unrelated to Ultrasound findings) No Genetic Counseling Consultation: No fax [facility] Esme Garcia [phone] Ultrasound Complete US (14-17.6 weeks GA) US PROC NONE Preferred Location: [facility] [place] R[facility] 08/31/2024 MFM Issue OTHER (enter details [...] (Latest Contact Info) Description 01/28/[address] [facility] Medicine [facility] [address] [facility] [address] [place] [address] Esme Castillo MD [address] [place] [address] related condition, antepartum (Primary Dx) Social History Tobacco Use Types Packs/Day Years Used Date Smoking Tobacco: Former Cigarettes 0.5 2 Adolescent Education Answer Date Record ed Getting School Help Needed Not on file 04/22 Comments No Sex and Gender Information Value Date Recorded Sex Assigned at Female 06/19/2023 11:52 AM SOFTWARE DESIGNER Legal Sex Female 5:06 AM SOFTWARE DESIGNER Gender Identity Female 06/19/2023 11:52 AM SOFTWARE DESIGNER Sexual Orientation Straight 06/19/2023 11 :52 AM SOFTWARE DESIGNER documented as of this encounter Plan of Treatment Scheduled Referrals Name Type Priority Associated Diagnoses Orde r Schedule [facility]tr Referral - Referral Routine related condition, antepartum Expected: 03/09/2024 (Approximate), Expires: 07/26/2024 [facility] Genetic Counseling Referral Routine: Next available opening related condition, antepartum Expected: 03/09/2024 (Approximate), Expires: 01/27/2025 documented as of this encounter Results * [facility] US OB Complete 2/3 Tri Single [...] LANGE Study Date: 03/10/2024 11:14am Pat. 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 RVOT view. LVOT view. 3-vessel view. 9-rkfayd-fhftxeg view. Ductal arch view. Abdomen Kidneys. Genitals. [...] time of survey. She had a preconception [facility] consult on 08/28/23. Patient is scheduled for a comprehensive survey at [facility] on 03/31. Following this recommend monthly growth [...] the patient (reviewing medical records/tests), in direct ssll-nj-keab contact with the patient during her visit with the majority spent counseling and discussing the plan of care and documenting the visit in the electronic medical record. Please see note for details. Procedure Note Libby Kaye MD - 03/10/2024 Trim ----- Pat. Name: ETIENNE LANGE Study Date: 03/10/2024 11:14am Pat. 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 RVOT view. LVOT view.3-vessel view. 7-dfqiya-cgmixbe view. Ductal arch view. Abdomen Kidneys. Genitals. [...] at time of survey.She had a preconception [facility] consult on 08/28/23. Patient is scheduled for a comprehensive [facility] on 03/31. Following this recommend monthly growthultrasounds [...] see the patient (reviewing medical records/tests), in xdiejseqcc-wt-gggs contact with the patient during her visit [...] low lying placenta. us Es[facility]illo [facility] S Edited Result - Final documented in this encounter Visit Diagnoses Diagnosis related condition, antepartum- Primary related condition, antepartum documented in this encounter Care Teams Asic Engineer Relationship Specialty Start Date End Date Raven Laguna MD [address] [address] PCP - General guest services assistant 04/23/23 Lamine Pizarro MD [address] [place] [address] Nephrology 04/23/23 documented as of this encounter
--- OUTSIDE RECORDS SUMMARY | 2024-04-28 10:40 | XMS_ITS | Encounter Summary ---
Author Organization [place] Address [address] [place] [address] Care Team Providers Care Swatcher Name Role Phone Lamine Pizarro MD Unavailable [phone] Raven Laguna MD Primary Care Provider [phone] Encounter Details Date Type Department Care Team (Late st Contact Info) Description 01/23/2024 Medical Correspondence [facility] Information Management [address] [place] [address] [address] [place] [address] Scan, Non-Provider Social History Tobacco Use Types Packs/Day Years Used Date Smoking Tobacco: Former Cigarettes 0.5 2 Adolescent Education Answer Date Record ed Getting School Help Needed Not on file 04/22 Comments No Sex and Gender Information Value Date Recorded Sex Assigned at Female 06/19/2023 11:52 AM WASTE MACHINE OPERATOR Legal Sex Female 5:06 AM WASTE MACHINE OPERATOR Gender Identity Female 06/19/2023 11:52 AM WASTE MACHINE OPERATOR Sexual Orientation Straight 06/19/2023 11 :52 AM WASTE MACHINE OPERATOR documented as of this encounter Plan of Treatment Not on file documented as of this encounter Visit Diagnoses Not on filedocumented in this encounter Care Teams Swatcher Relationship Specialty Start Date End Date Raven Laguna MD [facility] [address] [place] [address] PCP - General executive producer promos 04/23/23 Lamine Pizarro MD [address] [place] [address] Nephrology 04/23/23 documented as of this encounter
--- OUTSIDE RECORDS SUMMARY | 2024-04-28 10:40 | XMS_ITS | Encounter Summary ---
Author Organization [facility] Address [address] [place] [address]. [place] [address] Care Team Providers Care Building Surveyor Name Role Phone Lamine Pizarro MD Unavailable [phone] Raven Laguna MD Primary Care Provider [phone] Reason for Visit * Reason Comments Genetic Counseling Hx IUFD, CHTN Ultrasound 2/3 complete-hx IUFD , CHTN Encounter Details Date Type Department Care Team (Late st Contact Info) Description 03/02/2024 PRE VISIT [facility] [place] [address] [facility] [address] [place] [address] Silvia Narvaez RN Genetic Counseling [...] Sex Assigned at Female 06/19/2023 11:52 AM PRESS TOOL MAKER Legal Sex Female 5:06 AM PRESS TOOL MAKER Gender Identity Female 06/19/2023 11:52 AM PRESS TOOL MAKER Sexual Orientation Straight 06/19/2023 11 :52 AM PRESS TOOL MAKER documented as of this encounter Plan of Treatment Not on file documented as of this encounter Visit Diagnoses Not on filedocumented in this encounter Care Teams Building Surveyor Relationship Specialty Start Date End Date Raven Laguna MD [facility] [address] [place] [address] PCP - General boat hop 04/23/23 Lamine Pizarro MD [address] [place] [address] Nephrology 04/23/23 documented as of this encounter
--- OUTSIDE RECORDS SUMMARY | 2024-04-28 10:40 | XMS_ITS | Encounter Summary ---
Author Organization [facility] Address [address] [place] [address] Care Team Providers Care Safety Spec Name Role Phone Lamine Pizarro MD Unavailable Raven Laguna MD Primary Care Provider [phone] Encounter Details Date Type Department Care Team (Latest Contact Info) Description 01/27/[address] [facility] Information Management [address] [place] [address] [address] [place] [address] Scan, Non-Provider [facility] PROVIDER SERVICE REQUEST- OUTPATIENT Social History Tobacco Use Types Packs/Day Years Used Date Smoking Tobacco: Former Cigarettes 0.5 2 Adolescent Education Answer Date Record ed Getting School Help Needed Not on file 04/22 Comments No Sex and Gender Information Value Date Recorded Sex Assigned at Female 06/19/2023 11:52 AM WARDROBE CUSTODIAN Legal Sex Female 5:06 AM WARDROBE CUSTODIAN Gender Identity Female 06/19/2023 11:52 AM WARDROBE CUSTODIAN Sexual Orientation Straight 06/19/2023 11 :52 AM WARDROBE CUSTODIAN documented as of this encounter Plan of Treatment Not on file documented as of this encounter Visit Diagnoses Not on filedocumented in this encounter Care Teams Safety Spec Relationship Specialty Start Date End Date Raven Laguna MD [facility] [address] [place] [address] PCP - General scientific editor 04/23/23 Lamine Pizarro MD [address] [place] [address] Nephrology 04/23/23 documented as of this encounter
--- OUTSIDE RECORDS SUMMARY | 2024-04-28 10:40 | XMS_ITS | Encounter Summary ---
Author Organization [facility] Address [address] [place] [address] Care Team Providers Care Mobility Developer Name Role Phone Lamine Pizarro MD Unavailable [phone] Raven Laguna MD Primary Care Provider [phone] Reason for Visit * Reason Comments Genetic Counseling * Consultation (Routine: Next available opening) - Pending Review Specialty Diagnoses / Procedures Referred By Kevin montalvo Referred To Contact Diagnoses related condition, antepartum Esme Ramirez MD [address] [place] [address] Phone: tel: fax: Referral ID Status Reason Start Date Expiration Date V isits Requested Visits Authorized [id number] Pending Review 01/28/2024 01/27/2025 1 1 Encounter Details Date Type Department Care Team (Late st Contact Info) Description 03/10/2024 10:15 AM CDT Office Visit [facility] [place] [address] [facility] [address] [place] [address] Libby Kaye MD [address] [facility] [address] [place], [place] [address] Corina Rosenberg GC MATERNAL MEDICINE [address], [facility] [address] [place], [place] [address] History of IUFD (Primary Dx); related condition, [...] Sex Assigned at Female 06/19/2023 11:52 AM PRODUCTION DIRECTOR Legal Sex Female 5:06 AM PRODUCTION DIRECTOR Gender Identity Female 06/19/2023 11:52 AM PRODUCTION DIRECTOR Sexual Orientation Straight 06/19/2023 11 :52 AM PRODUCTION DIRECTOR documented as of this encounter Progress Notes * Corina Clifton, [place] - 03/10/2024 10:15 AM CDT [facility] Genetic Counseling Consult Patient: Darius Lange Preferred Name: Darius Date of : 1990 Date of Service: 03/10/24 Darius was seen at the [facility] for genetic consultation. The indication for genetic counseling is desire to discuss options for genetic screening and diagnostics and discuss the history of the IUFD in Darius's previous . The patient was accompanied to this visit by their Isaac. The session was conducted in Ecuadorean. IMPRESSION/ PLAN 1. Darius has not had genetic screening in this but elected to have screening today. 2. During today's [facility] visit, Darius had a blood draw for expanded non-invasive testing (also called NIPT, NIPS, or cell-free DNA) through [facility] (prequel). The expanded NIPT screens for trisomy [...] results, including sex, will be available in [employer]. 3. Darius had a early second trimester anatomy ultrasound today. Please see the ultrasound reportfor further details. 5. Further recommendations include a anatomy level II ultrasound with [facility]. Darius reports this ultrasound has already been scheduled with a [facility] physician when they rotate to [facility]. HISTORY /Parity: Darius's history is significant [...] is scanned under the Media tab in Online Prasad. The family history was reported by Darius [...] severely affected. screening was reviewed. About [place] [facility] The patient does NOT have a [...] a pleasure to be involved with Darius???s [facility]. Qfyo-mj-rcmj time of the meeting was 45 minutes. Corina Clifton GC, MS, [facility] Board Certified and [place] Licensed Genetic Counselor [facility] Maternal Medicine Office: [phone] [facility]: [phone] [facility] documented in this encounter Plan of Treatment Not on file documented as of this encounter Results * [facility] Non-Invasive Screening???[facility] (03/10/2024 12:45 PM CDT) See Scanned Result [facility] NON-INVASIVE SCREENING PREQUEL-Scann ed 03/19/2024 9:56 AM CDT [facility] Blood STRUCTURE OF RIGHT UPPER LIMB / Unknown Venipuncture / Unknown 03/10/2024 12:45 PM CDT 03/10/2024 12:45 PM CDT us Corina Rosenberg GC LAB - BLOOD ORDERABLES Final Result [facility] [address] [place] [address], [facility] [phone] documented in this encounter Visit Diagnoses Diagnosis History of IUFD- Primary related condition, antepartum , supervision, high-risk, second trimester documented in this encounter Care Teams Mobility Developer Relationship Specialty Start Date End Date Raven Laguna MD [facility] [address] [place] [address] PCP - General audio tape librarian 04/23/23 Lamine Pizarro MD [address] [place] [address] Nephrology 04/23/23 documented as of this encounter
--- OUTSIDE RECORDS SUMMARY | 2024-04-28 10:40 | XMS_ITS | Encounter Summary ---
Author Organization [facility] Address [address] [place] [address] Care Team Providers Care Straight Line Press Setter Name Role Phone Lamine Pizarro MD Unavailable Raven Laguna MD Primary Care Provider [phone] Encounter Details Date Type Department Care Team [...] Sex Assigned at Female 06/19/2023 11:52 AM CHILD PROTECTIVE SERVICES SOCIAL WORKER Legal Sex Female 5:06 AM CHILD PROTECTIVE SERVICES SOCIAL WORKER Gender Identity Female 06/19/2023 11:52 AM CHILD PROTECTIVE SERVICES SOCIAL WORKER Sexual Orientation Straight 06/19/2023 11 :52 AM CHILD PROTECTIVE SERVICES SOCIAL WORKER documented as of this encounter Plan of Treatment Not on file documented as of this encounter Visit Diagnoses Not on filedocumented in this encounter Care Teams Straight Line Press Setter Relationship Specialty Start Date End Date Raven Laguna MD [facility] [address] [place] [address] PCP - General manager dental 04/23/23 Lamine Pizarro MD [address] [place] [address] Nephrology 04/23/23 documented as of this encounter
== END 2024-04-28 10:38 | disposition home or self-care (01) ==
LOC: US 10:38
PROVIDERS: PCP Family Medicine; Visit Provider Obstetrics & Gynecology
DX: Z36.2 Encounter for other antenatal screening follow-up (principal); Z3A.22 22 weeks gestation of pregnancy
CPT/HCPCS: 76816

== ENCOUNTER 2024-05-13 08:20 | Outpatient (CLI) | payer BC, SELFPAY ==
--- NOTE | 2024-05-13 08:15 | CRLHL7_ITS ---
For Patients: As a result of the Century Cures Act, medical imaging exams and procedure reports are released immediately into your electronic medical record. You may view this report before your referring provider. If you have questions, please contact your health care provider. INDICATION: Third trimester scan, evaluate growth. GROWTH PER MFM DUE TO HTN AND IUFD COMPARISON: 04/28/2024 TECHNIQUE: Real time marinelli scale imaging of the fetus was performed. FINDINGS: Sonographic imaging demonstrates a single living intrauterine gestation. Fetus demonstrates a regular cardiac rate of 149 beats per minute. Fetus has a vertex position. The placenta lies posteriorly. Amniotic fluid volume appears normal and there is a single deepest vertical pocket: 3.7 cm. The estimated weight is 657gm which lies at the 31st %. On the prior OB ultrasound exam dated 04/28/2024 the estimated weight was at the 45th%. BPD 11th percentile. HC is 21st percentile. AC 53rd percentile. FL 15th percentile. The HC/AC ratio measures 1.10 range (1.05-1.21). IMPRESSION: Sonographic gestational age 23 weeks 6 days and sonographic due date of 09/03/2024. Good correlation with dates. Normal interval growth. Estimated weight 31st percentile. Abdominal circumference 63rd percentile. Dictated by Zay Drake MD @ 05/13/2024 10:49:59 AM (Electronically Signed)
== END 2024-05-13 08:21 | disposition home or self-care (01) ==
LOC: US 08:20
PROVIDERS: PCP Family Medicine; Visit Provider Obstetrics & Gynecology
DX: O10.912 Unspecified pre-existing hypertension complicating pregnancy, second trimester (principal); Z87.59 Personal history of other complications of pregnancy, childbirth and the puerperium; Z3A.23 23 weeks gestation of pregnancy
CPT/HCPCS: 76816

== ENCOUNTER 2024-05-13 09:58 | Outpatient (CLI) | payer BC, SELFPAY | END 2024-05-13 09:59 | disposition home or self-care (01) | LOC: NFLDREF 10:00 | PROVIDERS: PCP Family Medicine; Visit Provider Obstetrics & Gynecology | DX: J32.9 Chronic sinusitis, unspecified (principal); Z86.14 Personal history of Methicillin resistant Staphylococcus aureus infection | CPT/HCPCS: 87081 ==

== ENCOUNTER 2024-05-23 22:30 | Outpatient (CLI) | payer BC, SELFPAY ==
[2024-05-23 22:56] VITALS: BP 125/73; PULSE 90; RESP 16; TEMP 36.6
[2024-05-23 23:16] LABS: Appearance Urine Clear (Clear); Bilirubin Urine Negative (Negative); Blood Urine Negative (Negative); Color Urine Yellow (Yellow); Glucose Urine Negative (Negative); Ketones Urine Negative (Negative); Leukocyte Esterase Urine Negative (Negative); Nitrite Urine Negative (Negative); Protein Urine Negative (Negative); Specific Gravity Urine 1.015 (1.000-1.030); Urobilinogen Urine 0.2 (0.2-1.0)
[2024-05-23 23:21] LABS: Clue Cells No Clue Cells Seen (None Seen); Trichomonas No Trichomonas Seen (None Seen); Yeast No Yeast Seen (None Seen)
[2024-05-23 23:21] LABS: Amnisure Rom* Negative
--- NOTE | 2024-05-24 00:17 | PC.OBNST ---
NST Note NST Note Start: 05/23/24 22:42 Freq: ONCE Status: Active Protocol: Document 05/23/24 23:59 MMT (Rec: 05/24/24 00:17 MMT No Response) NST Note 3 Para (# of births) 1 EDC 08/31/24 Gestational Age In Weeks & Days 25 Weeks & 6 Days High Risk Factors High Blood Pressure - Preexisting,History of Labor/Delivery,History of /Stillborn Patient Presented with Complaint(s) of Contractions/cramping,Leaking fluid Other Complaints Pt stated that she had a trickle of fluid run down her leg at 1930, and has been having lower abdominal cramping. Reactive Yes Appropriate for Gestational Age Yes Piedad Bach Date 05/23/24 Reactive Yes Appropriate for Gestational Age Yes Razia Renteria Date 05/23/24 OB NST charge Yes Complete NST Note via Write Note Yes The provider's electronic signature indicates the NST is reactive/appropriate for gestational age. *Note to provider: If an addendum is required, open the patient's chart and click on the note under the Nurse/Allied Health tab.
== END 2024-05-23 23:59 | disposition home or self-care (01) ==
LOC: OB OUT 22:30 → OB 22:30
PROVIDERS: PCP Family Medicine; Visit Provider Obstetrics & Gynecology
DX: O99.212 Obesity complicating pregnancy, second trimester (principal); O47.02 False labor before 37 completed weeks of gestation, second trimester; Z3A.25 25 weeks gestation of pregnancy
CPT/HCPCS: 59025; 81003; 84112; 87210; G0463

== ENCOUNTER 2024-05-24 15:24 | Outpatient (CLI) | payer BC, SELFPAY ==
--- NOTE | 2024-05-24 15:51 | CRLHL7_ITS ---
For Patients: As a result of the Century Cures Act, medical imaging exams and procedure reports are released immediately into your electronic medical record. You may view this report before your referring provider. If you have questions, please contact your health care provider. INDICATION: Tearing abdominal pain. TECHNIQUE: Ultrasound OB pelvis transabdominal. Real-time marinelli-scale imaging of the pelvis was performed. COMPARISON: None. FINDINGS: Single live intrauterine gestation with a heart rate of 134 beats per minute. Transverse orientation. Normal amniotic fluid with an DESTIN of 17.6 cm. Posterior placenta without evidence for abruption. Normal cervical length measuring 5.5 cm. IMPRESSION: Single viable intrauterine . Transverse orientation. No abnormalities seen. Dictated by Oliver Ruvalcaba MD @ 05/24/2024 6:23:11 PM (Electronically Signed)
--- NOTE | 2024-05-24 16:21 | CRLHL7_ITS ---
For Patients: As a result of the Century Cures Act, medical imaging exams and procedure reports are released immediately into your electronic medical record. You may view this report before your referring provider. If you have questions, please contact your health care provider. Indication: Tearing abdominal pain Technique: Appendix ultrasound utilizing grayscale and color Doppler as needed. Comparison: None Findings/Impression: The appendix is not visualized. There is no abnormal mass/lesion, free fluid/fluid collection, lymphadenopathy, or abnormal vascularity in the right lower quadrant. Dictated by Jona Rothman MD @ 05/24/2024 6:15:50 PM (Electronically Signed)
[2024-05-24 16:36] LABS: Fetal Fibronectin* Negative (Negative)
[2024-05-24] MEDS: MORPHINE 10 MG/ML inj IM (17:21)
[2024-05-24] MEDS: hydrOXYzine pamoate 25 MG CAPSULE 100 MG PO (17:21)
[2024-05-24] MEDS: SIMETHICONE 80 MG TAB.CHEW 160 MG PO (17:22)
--- NOTE | 2024-05-24 18:25 | PC.OBNST ---
NST Note NST Note Start: 05/24/24 15:27 Freq: ONCE Status: Active Protocol: Document 05/24/24 17:40 PORTC (Rec: 05/24/24 18:23 PORTC Desktop) NST Note 3 Para (# of births) 2 EDC 08/31/24 Gestational Age In Weeks & Days 25 Weeks & 6 Days High Risk Factors History of Labor/ Delivery,History of /Stillborn Patient Presented with Complaint(s) of Contractions/cramping Other Complaints Pt reporting abdominal cramping and a tearing pain in lower abdomen, starting on the evening of 05/23/2025 and persisting through the day of 05/24/2025 Reactive Yes Appropriate for Gestational Age Yes RN Caty Ferguson RNC Date 05/24/24 Reactive Yes Appropriate for Gestational Age Yes RN Avani Whitlock RN Date 05/24/24 OB NST charge Yes Complete NST Note via Write Note Yes The provider's electronic signature indicates the NST is reactive/appropriate for gestational age. *Note to provider: If an addendum is required, open the patient's chart and click on the note under the Nurse/Allied Health tab.
== END 2024-05-24 17:35 | disposition home or self-care (01) ==
LOC: OB OUT 15:24 → OB 15:24
PROVIDERS: PCP Family Medicine; Visit Provider Obstetrics & Gynecology
DX: O47.02 False labor before 37 completed weeks of gestation, second trimester (principal); O09.212 Supervision of pregnancy with history of pre-term labor, second trimester; Z3A.25 25 weeks gestation of pregnancy
CPT/HCPCS: 59025; 76705; 76815; 84112; 87086; G0463; A9270; J2270

== ENCOUNTER 2024-05-27 10:21 | Outpatient (CLI) | payer BC, SELFPAY ==
--- OUTSIDE RECORDS SUMMARY | 2024-05-27 10:01 | XMS_ITS | Clinical Summary ---
Author Organization [facility] Address [address] [place] [address] Care Team Providers Care Disease And Insect Control Boss Name Role Phone Lamine Pizarro MD Unavailable Raven Laguna MD Primary Care Provider [phone] Allergies No known active allergies Medications VITAMIN [...] Type Department Care Team Description 03/19/2024 Telephone [facility] Maternal Medicine [facility] [place] [address] [place] [address] Corina Rosenberg GC Results (Low risk NIPT (XY)) 03/10/2024 12:40 PM CDT Lab [facility] [address] [place] [address] Libby Kaye MD related condition, antepartum; History of IUFD; , supervision, high-risk, second trimester 03/10/2024 11:30 AM CDT Office Visit [facility] Medicine [facility] [address] [place] [address] Libby Kaye MD History of IUFD (Primary Dx); Chronic hypertension affecting 03/10/2024 10:15 AM CDT Office Visit [facility] [address] [address] Libby Kaye MD Kottke, Mariah R, GC History of IUFD (Primary Dx); related condition, antepartum; , supervision, high-risk, second trimester 03/10/2024 10:07 AM CDT - 03/10/2024 11:59 PM CDT Hospital Encounter [facility] [address] [place] [phone] Libby Kaye MD related condition, antepartum Discharge Disposition: Home or Self Care 03/10/2024 Travel 03/09/2024 Travel 03/05/2024 Travel 03/02/2024 PRE VISIT [facility] [address] [place] [address] Silvia Narvaez RN Genetic Counseling (Hx IUFD, CHTN); Ultrasound (2/3 complete-hx IUFD, CHTN) from Last 3 Months Social History Tobacco [...] Sex Assigned at Female 06/19/2023 11:52 AM CURING ROOM WORKER Legal Sex Female 5:06 AM CURING ROOM WORKER Gender Identity Female 06/19/2023 11:52 AM CURING ROOM WORKER Sexual Orientation Straight 06/19/2023 11 :52 AM CURING ROOM WORKER Last Filed Vital Signs Vital Sign Reading [...] OF HM ORDERS 1990 YEARLY PREVENTIVE VISIT 11/15/1994 HIV SCREENING 11/15/2006 HEPATITIS C SCREENING 11/15/2009 [...] 5 Years) and At-Risk Patients (6 to 49 Years) Aged Out No longer eligible based on patient's age to complete this topic RSV MONOCLONAL ANTIBODY Aged Out No l onger eligible based on patient's age to complete this topic RSV VACCINE (No Doses Required) Completed Procedures Procedure Name Priority Date/Time Associated Diagnosis Comments Zaranga NON-INVASIVE SCREENING PREQUEL Routine 03/10/2024 12:45 PM CDT related condition, antepartum History of IUFD , supervision, high-risk, second trimester [facility] US OB COMPLETE 2/3 TRI SINGLE Routine 03/10/2024 12:13 PM CDT related condition, antepartum COMPREHENSIVE METABOLIC PANEL Routine 08/28/2023 3:18 PM CDT History of demise, not currently from Last 3 Months or Most Recently Relevant to Health Maintenance Results * [employer] Non-Invasive Screening???Prequel (03/10/2024 12:45 PM CDT) See Scanned Result Zaranga NON-INVASIVE SCREENING PREQUEL-Scann ed 03/19/2024 9:56 AM CDT [employer] Blood STRUCTURE OF RIGHT UPPER LIMB / Unknown Venipuncture / Unknown 03/10/2024 12:45 PM CDT 03/10/2024 12:45 PM CDT us Corina Rosenberg GC LAB - BLOOD ORDERABLES Final Result [employer] [address] [place] [address], [facility] [phone] * [facility] US OB Complete 2/3 Tri Single [...] LANGE Study Date: 03/10/2024 11:14am Pat. NO: [id number] Referring MD: ESME CASTILLO Site: Film Projector Operator: Garima Knutson RDMS : 1990 Age: [...] 0 lb 4 oz EFW by Hadlock ([id number]) Head / Face / Neck Biometry: Grain Merchandiser 5.0 mm CM 3.1 mm Nasal bone [...] view. RVOT view. LVOT view. 3-vessel view. 5-jefjlo-hiigjoz view. Ductal arch view. Abdomen Kidneys. Genitals. [...] time of survey. She had a preconception [facility] consult on 08/28/23. Patient is scheduled for a comprehensive survey at [facility] on 03/31. Following this recommend monthly [...] the patient (reviewing medical records/tests), in direct goel-ym-dtff contact with the patient during her visit with the majority spent counseling and discussing the plan of care and documenting the visit in the electronic medical record. Please see note for details. Procedure Note Libby Kaye MD - 03/10/2024 / Trim ----- Pat. Name: ETIENNE LANGE Study Date: 03/10/2024 11:14am Pat. NO: [id number] Referring MD: ESME CASTILLO Site: Film Projector Operator: Garima Knutson RDMS : 1990 Age: [...] EFW (lb,oz) 0 lb 4oz EFW by Hadlock([id number]) Head / Face / Neck Biometry: Grain Merchandiser 5.0mm CM 3.1mm Nasal bone 3.4mm ANATOMY [...] 4-chamber view. RVOT view. LVOT view.3-vessel view. 4-xrhasc-ndhlwlm view. Ductal arch view. Abdomen Kidneys. Genitals. [...] Patient is scheduled for a comprehensive surveyat [facility] on 03/31. Following this recommend monthly [...] see the patient (reviewing medical records/tests), in fikohsijlk-se-jvpc contact with the patient during her visit [...] is a low lying placenta. us Esme LANGE [facility] US ORDERABLE S Edited Result - Final * Comprehensive metabolic panel (08/28/2023 3:18 PM CDT) [facility] Sodium 142 135 - 145 mmol/L 08/28/2023 [...] - BLOOD ORDERABLES Final Result UR LABORATORY [facility] Critical access [facility], [address] [place] [address] from Last 3 Months or Most Recently Relevant to Health Maintenance Insurance [facility] Address: [id number] [facility] [place] [address] Care Teams Disease And Insect Control Boss Relationship Specialty Start Date End Date Raven Laguna MD [facility] [address] [place] [address] PCP - General hop worker 04/23/23 Lamine Pizarro MD [address] [place] [address] Nephrology 04/23/23
--- OUTSIDE RECORDS SUMMARY | 2024-05-27 10:01 | XMS_ITS | Referral Summary ---
Author Organization [facility] Address [address] [place] [address] Care Team Providers Care Coding Educator Name Role Phone Lamine Pizarro MD Unavailable [phone] Raven Laguna MD Primary Care Provider [phone] Encounters Date Type Department Care Team Description 03/19/2024 Telephone [facility] Maternal Medicine [facility] [address] [facility] [address] [place] [phone] Corina Rosenberg GC Results (Low risk NIPT (XY)) 03/10/2024 12:[address] [facility] [address] [place] [address] Libby Kaye MD related condition, antepartum; History of IUFD; , supervision, high-risk, second trimester 03/10/2024 Travel 03/10/2024 11:30 AM CDT Office Visit [facility] Maternal Medicine [facility] [address] [facility] [address] [place] [phone] Libby Kaye MD History of IUFD (Primary Dx); Chronic hypertension affecting 03/10/2024 10:07 AM CDT - 03/10/2024 11:59 PM CDT Hospital Encounter [facility] Medicine [facility] [address] [facility] [address] [place] [phone] Libby Kaye MD related condition, antepartum Discharge Disposition: Home or Self Care 03/10/2024 10:15 AM CDT Office Visit [facility] Maternal Medicine [facility] [address] [facility] [address] [place] [phone] Libby Kaye MD Kottke, Mariah R, GC History of IUFD (Primary Dx); related condition, antepartum; , supervision, high-risk, second trimester 03/09/2024 Travel 03/05/2024 Travel 03/02/2024 PRE VISIT [facility] Maternal Medicine [facility] [address] [facility] [address] [place] [phone] Silvia Narvaez, ELAINE Genetic Counseling (Hx IUFD, CHTN); Ultrasound (2/3 complete-hx IUFD, CHTN) from Last 3 Months Allergies No known [...] Sex Assigned at Female 06/19/2023 11:52 AM GRAVES REGISTRATION SPECIALIST Legal Sex Female 5:06 AM GRAVES REGISTRATION SPECIALIST Gender Identity Female 06/19/2023 11:52 AM GRAVES REGISTRATION SPECIALIST Sexual Orientation Straight 06/19/2023 11 :52 AM GRAVES REGISTRATION SPECIALIST Last Filed Vital Signs Vital Sign [...] Procedure Name Priority Date/Time Associated Diagnosis Comments [employer] NON-INVASIVE SCREENING PREQUEL Routine 03/10/2024 12:45 PM CDT related condition, antepartum History of IUFD , supervision, high-risk, second trimester [facility] OB COMPLETE 2/3 TRI SINGLE Routine 03/10/2024 12:13 PM CDT related condition, antepartum COMPREHENSIVE METABOLIC PANEL Routine 08/28/2023 3:18 PM CDT History of demise, not currently from Last 3 Months or Most Recently Relevant to Health Maintenance Results * [employer] Non-Invasive Screening???Prequel (03/10/2024 12:45 PM CDT) See Scanned Result [employer] NON-INVASIVE SCREENING PREQUEL-Scann ed 03/19/2024 9:56 AM CDT [facility] Blood STRUCTURE OF RIGHT UPPER LIMB / Unknown Venipuncture / Unknown 03/10/2024 12:45 PM CDT 03/10/2024 12:45 PM CDT us Corina Rosenberg GC LAB - BLOOD ORDERABLES Final Result [facility] [place] [address], [facility] [phone] * [facility] US OB Complete 2/3 Tri [...] LANGE Study Date: 03/10/2024 11:14am Pat. NO: [id number] Referring MD: ESME CASTILLO Site: Buffer Inflated Pad: Garima Knutson RDMS : 1990 Age: 33 [...] Assigned dating based on ultrasound (), selected on 03/10/2024 14 w + 6 [...] (lb,oz) 0 lb 4 oz EFW by Lizzylock ([id number]) Head / Face / Neck Biometry: Insulation Board Calender Operator 5.0 mm CM 3.1 mm Nasal bone [...] view. RVOT view. LVOT view. 3-vessel view. 6-izjqaf-vudrhld view. Ductal arch view. Abdomen Kidneys. Genitals. [...] survey. She had a preconception [facility] consult on 08/28/23. Patient is scheduled for a comprehensive survey at [facility] on 03/31. Following this recommend monthly [...] the patient (reviewing medical records/tests), in direct gkoy-mi-ftmx contact with the patient during her visit with the majority spent counseling and discussing the plan of care and documenting the visit in the electronic medical record. Please see note for details. Procedure Note Libby Kaye MD - 03/10/2024 / Trim ----- Pat. Name: ETIENNE LANGE Study Date: 03/10/2024 11:14am Pat. NO: [id number] Referring MD: ESME CASTILLO Site: Buffer Inflated Pad: Garima Knutson RDMS : 1990 Age: 33 [...] EFW (lb,oz) 0 lb 4oz EFW by Hadlock([id number]) Head / Face / Neck Biometry: Insulation Board Calender Operator 5.0mm CM 3.1mm Nasal bone 3.4mm [...] 4-chamber view. RVOT view. LVOT view.3-vessel view. 6-rorspq-erllqli view. Ductal arch view. Abdomen Kidneys. Genitals. [...] Patient is scheduled for a comprehensive surveyat [facility] on 03/31. Following this recommend monthly [...] see the patient (reviewing medical records/tests), in jfrndivyud-gx-tbvj contact with the patient during her visit [...] low lying placenta. us Esme Castillo MD [facility] ORDERABLE S Edited Result - Final * Comprehensive metabolic panel (08/28/2023 3:18 PM CDT) [facility] Sodium 142 135 - 145 mmol/L [...] BLOOD ORDERABLES Final Result UR LABORATORY [facility] Acute Care Lab [address] [place] [address], [facility] from Last 3 Months or Most Recently Relevant to Health Maintenance Insurance [facility] [employer] [facility] Care Teams Coding Educator Relationship Specialty Start Date End Date Raven Laguna MD [facility] AND [address] [address] PCP - General telecommunications technician 04/23/23 Lamine Pizarro MD [address] [place] [address] Nephrology 04/23/23
--- OUTSIDE RECORDS SUMMARY | 2024-05-27 10:01 | XMS_ITS | Clinical Summary ---
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 08/27/2023 Active LORazepam (ATIVAN) 0.5 mg tabIndications: Grief associated with loss of fetus,Anxiety Take 1 [...] drink = 0.6 oz pur e alcohol) [facility] Util[facility] Answer Date Recorded Do you have trouble paying f or utilities (for example, heat, electricity, water, phone)? Yes 08/27/2023 PHQ-2 Answer Date Recorded PHQ-2 TOTAL SCORE [...] is your housing situation today? 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 Gender Identity Female 01/02/2022 10:36 PM CDT [...] Additional history exists Pneumococcal series for age 6-49 Aged Out No longer eligible based on patient's age to complete this topic Procedures Procedure Name Priority Date/Time Associated Diagnosis Comments COMPLAINT OPERATOR THIN PREP PAP SCREEN IMAGED Routine 03/12/2019 3:17 PM CDT Routine general medical examination at health care facility Screening for malignant neoplasm of cervix from Last 3 Months or Most Recently Relevant to Health Maintenance Results * COMPLAINT OPERATOR THIN PREP PAP SCREEN IMAGED (03/12/2019 3:17 PM CDT) Case Report Gynecologic Cytology Report Case: [id number] Authorizing Provider: Roslyn Bentley MD Collected: 03/12/2019 1517 Ordering Location: [facility] Received: 03/12/2019 1518 Clinic First Screen: Orin Mancuso Specimen: COMPLAINT OPERATOR ThinPrep Vial Screening, Cervical 03/23/2019 10:42 AM CDT [facility] INTERPRETATION/ RESULT NEGATIVE FOR INTRAEPITHELIAL LESION OR MALIGNANCY (NIL) (none) 03/23/2019 10:42 AM CDT [facility] IMEN ADEQUACY Satisfactory for evaluation Endocervical component present 03/23/2019 10:42 AM CDT [facility] HPV REQUEST HPV if ASCUS 03/23/2019 10:42 AM CDT [facility] Date of LMP 02/19/2019 03/23/2019 10:42 AM CDT [facility] Last Pap Date at least 5 years ago 03/23/2019 10:42 AM CDT [facility] Last Pap Result First Pap/Unknown 10:42 AM CDT [facility] Abnormal Pap or [place] Bx in last 5 years No 03/23/2019 10:42 AM CDT [facility] Menstrual Status Regular Periods 03/23/2019 10:42 AM CDT [facility] [place] Bx Done Today No 03/23/2019 10:42 AM CDT [facility] Additional Information None given 03/23/2019 10:42 AM CDT [facility] Automated Review Successful 03/23/2019 10:42 AM CDT [facility] Comment:Specimen processed s uccessfully by automated laborer airport maintenance device, ThinPrep Imaging System, [employer] Note The pap test is a [...] lesions. Cytology is screened and interpreted at [facility] - [address], [place] [address] and [facility] - [address]; [place] [address] and [facility] - [address]; [place] [address] [address] [facility] [address]; [place] [address] 03/23/2019 10:42 AM CDT [facility] Other (Cervical) Non-Blood / Unknown 03/12/2019 3:17 PM CDT 03/12/2019 3:18 PM CDT us Roslyn Bentley MD PATHOLOGY/CYTOLOGY Final Result [facility] [address] [place] [address], from Last 3 Months or Most Recently Relevant to Health Maintenance Insurance MEDICAID Care Teams Boatbuilder Supervisor Relationship Specialty Start Date End Date Jyoti Cope DO [address] [place] [address] PCP - General Family Practice 01/08/23
[2024-05-27 10:31] VITALS: TEMP 36.8
[2024-05-27 11:32] LABS: Appearance Urine Cloudy (Clear); Bilirubin Urine Negative (Negative); Blood Urine Negative (Negative); Color Urine Yellow (Yellow); Glucose Urine Negative (Negative); Ketones Urine Negative (Negative); Leukocyte Esterase Urine Negative (Negative); Nitrite Urine Negative (Negative); Protein Urine Negative (Negative); Urobilinogen Urine 0.2 (0.2-1.0)
[2024-05-27 11:37] LABS: Amorphous Sediment Urine Moderate; RBC Urine 0-2 (0-2); Squamous Epithelial Cell Urine Moderate (None-Few); WBC Urine 0-2 (0-5)
[2024-05-27] MEDS: LACTATED RINGERS 1000 ML 1,000 ML IV (11:55)
[2024-05-27 12:30] LABS: Bacterial Vaginosis* Negative (Negative); Candida glab/krus NOT DETECTED (No Detected); Candida species NOT DETECTED (No Detected); Trichomonas vaginalis NOT DETECTED (No Detected)
[2024-05-27 12:52] LABS: Fetal Fibronectin* Negative (Negative)
[2024-05-27 13:04] LABS: Chlamydia DNA Amplified* NOT DETECTED (No Detected); GC DNA Amplified* NOT DETECTED (No Detected)
[2024-05-28 12:00] LABS: Strep B DNA Probe Negative (Negative)
[2024-05-28 12:01] LABS: Strep B Susceptibility Needed? No
--- NOTE | 2024-05-30 21:41 | PC.OBNST ---
NST Note NST Note Start: 05/27/24 10:32 Freq: ONCE Status: Discharge Protocol: Document 05/27/24 10:32 [facility] (Rec: 05/27/24 14:09 [facility] [id number]) NST Note 3 Para (# of births) 2 EDC 08/31/24 Gestational Age In Weeks & Days 26 Weeks & 2 Days High Risk Factors High Blood Pressure - Preexisting Patient Presented with Complaint(s) of Contractions/cramping Other Complaints R/O TANNER Reactive Yes Appropriate for Gestational Age Yes Roger Esparza Date 05/27/24 Reactive Yes Appropriate for Gestational Age Yes Katharine Seo Date 05/27/24 OB NST charge Yes Complete NST Note via Write Note Yes The provider's electronic signature indicates the NST is reactive/appropriate for gestational age. *Note to provider: If an addendum is required, open the patient's chart and click on the note under the Nurse/Allied Health tab.
== END 2024-05-27 14:05 | disposition home or self-care (01) ==
LOC: OB OUT 10:27 → OB 10:29
PROVIDERS: PCP Family Medicine; Visit Provider Obstetrics & Gynecology
DX: O10.912 Unspecified pre-existing hypertension complicating pregnancy, second trimester (principal); O47.02 False labor before 37 completed weeks of gestation, second trimester; Z3A.26 26 weeks gestation of pregnancy
CPT/HCPCS: 59025; 81001; 81003; 81513; 84112; 87081; 87086; 87481; 87491; 87591; 87653; 87661; G0463; J7120

== ENCOUNTER 2024-06-02 08:33 | Outpatient (CLI) | payer BC, SELFPAY | END 2024-06-02 08:34 | disposition home or self-care (01) | LOC: NFLDREF 06-09 02:36 | PROVIDERS: PCP Family Medicine; Referring Provider Family Medicine; Visit Provider Obstetrics & Gynecology | DX: O10.912 Unspecified pre-existing hypertension complicating pregnancy, second trimester (principal); Z87.59 Personal history of other complications of pregnancy, childbirth and the puerperium; Z3A.27 27 weeks gestation of pregnancy | CPT/HCPCS: 82565; 82570; 84156; 84450; 84460; 84520; 86592 ==

== ENCOUNTER 2024-06-08 09:01 | Outpatient (CLI) | payer BC, SELFPAY ==
--- NOTE | 2024-06-08 09:15 | CRLHL7_ITS ---
For Patients: As a result of the Century Cures Act, medical imaging exams and procedure reports are released immediately into your electronic medical record. You may view this report before your referring provider. If you have questions, please contact your health care provider. INDICATION: CHTN, hx of IUFD COMPARISON: 05/24/2024 TECHNIQUE: Real time marinelli scale imaging of the fetus was performed. FINDINGS/IMPRESSION: Sonographic imaging demonstrates a single living intrauterine gestation. Fetus demonstrates a regular cardiac rate of 128 beats per minute. Fetus has a breech position. The placenta lies posteriorly. Amniotic fluid volume appears normal and there is a single deepest vertical pocket: 3.5 cm. The estimated weight is 1153gm which lies at the 36th %. On the prior OB ultrasound exam dated 05/13/2024 the estimated weight was at the 31st%. BPD 53rd percentile. HC 46th percentile. AC is 55th percentile. FL 11th percentile. The HC/AC ratio measures 1.10 range (1.02-1.21). Sonographic gestational age 28 weeks 1 day and sonographic due date of 08/30/2024. Good correlation with dates. Dictated by Zay Drake MD @ 06/08/2024 11:44:06 AM (Electronically Signed)
== END 2024-06-08 09:02 | disposition home or self-care (01) ==
LOC: US 09:01
PROVIDERS: PCP Family Medicine; Visit Provider Obstetrics & Gynecology
DX: O10.913 Unspecified pre-existing hypertension complicating pregnancy, third trimester (principal); Z3A.28 28 weeks gestation of pregnancy
CPT/HCPCS: 76816

== ENCOUNTER 2024-06-08 14:05 | Outpatient (CLI) | payer BC, SELFPAY ==
[2024-06-08] VITALS (12 sets, daily range): BP systolic 110–134; BP diastolic 61–75; PULSE 84–98; O2SAT 98
[2024-06-08 14:44] LABS: Hematocrit 37.8 % (33.0-51.0); Hemoglobin* 12.8 gm/dL (12.0-16.0); Mean Corpuscular HGB Conc 34 gm/dL (32-36); Mean Corpuscular Hemoglobin 28 pg (26-34); Mean Corpuscular Volume 83 fL (80-100); Platelet Count* 193 K/uL (140-440); Red Blood Count 4.56 m/uL (4.00-5.20); White Blood Count* 10.29 K/uL (4.50-11.00)
[2024-06-08 14:57] LABS: Alanine Aminotransferase* 11 U/L (4-35)
[2024-06-08 14:58] LABS: Blood Urea Nitrogen* 8 mg/dL (5-24)
[2024-06-08 15:03] LABS: Slide Review Reflex No
[2024-06-08 15:04] LABS: Total Protein Urine 19 mg/dL
[2024-06-08 15:05] LABS: Protein Creatinine Ratio Urine 0.44 (0-0.19)
[2024-06-08 15:14] LABS: Aspartate Amino Transferase* 17 U/L (12-35); Creatinine* 0.4 mg/dL (0.5-1.5); Estimated Glomerular Filt Rate 135 ml/min
[2024-06-08 16:33] LABS: Albumin* 4.1 g/dL (3.3-5.0); Chloride* 108 mmol/L (96-114); Sodium* 136 mmol/L (135-149)
[2024-06-08 16:35] LABS: Creatinine* 0.4 mg/dL (0.5-1.5); Estimated Glomerular Filt Rate 135 ml/min
[2024-06-08 16:36] LABS: Alanine Aminotransferase* 11 U/L (4-35); Alkaline Phosphatase* 78 U/L (40-150); Anion Gap 8 mEq/L (7-15); Aspartate Amino Transferase* 18 U/L (12-35); Blood Urea Nitrogen* 8 mg/dL (5-24); Calcium* 9.3 mg/dL (8.4-10.6); Carbon Dioxide* 20 mmol/L (20-32); Glucose* 85 mg/dL (60-115); Total Protein* 7.1 g/dL (6.0-8.3)
[2024-06-08 16:52] LABS: Bilirubin Total* 0.3 mg/dL (0.1-1.5)
--- NOTE | 2024-06-08 18:18 | PC.OBNST ---
NST Note NST Note Start: 06/08/24 14:13 Freq: ONCE Status: Active Protocol: Document 06/08/24 18:09 LEE ANN (Rec: 06/08/24 18:18 JOSÉ LUISSIMÓNDuncan [id number]) NST Note 3 Para (# of births) 2 EDC 08/31/24 Gestational Age In Weeks & Days 28 Weeks & 0 Days High Risk Factors High Blood Pressure - Preexisting,History of Labor/Delivery,History of /Stillborn Patient Presented with Complaint(s) of Other Other Complaints Pt. had an elevated BP, some dizziness, and mild ROSENBERG in clinic and was sent to OB for serial BP's, labs, and EFM. Reactive Yes Appropriate for Gestational Age Yes ELAINE Johnson Date 06/08/24 Reactive Yes Appropriate for Gestational Age Yes ELAINE Kruger Date 06/08/24 OB NST charge Yes Complete NST Note via Write Note Yes The provider's electronic signature indicates the NST is reactive/appropriate for gestational age. *Note to provider: If an addendum is required, open the patient's chart and click on the note under the Nurse/Allied Health tab.
== END 2024-06-08 17:30 | disposition home or self-care (01) ==
LOC: OB OUT 14:06 → OB 14:07
PROVIDERS: PCP Family Medicine; Visit Provider Obstetrics & Gynecology
DX: O10.913 Unspecified pre-existing hypertension complicating pregnancy, third trimester (principal); Z3A.28 28 weeks gestation of pregnancy
CPT/HCPCS: 36415; 59025; 80053; 82565; 82570; 84156; 84450; 84460; 84520; 85027; G0463

== ENCOUNTER 2024-06-10 09:51 | Outpatient (CLI) | payer BC, SELFPAY | END 2024-06-10 09:52 | disposition home or self-care (01) | PROVIDERS: PCP Family Medicine; Visit Provider Obstetrics & Gynecology | DX: R00.0 Tachycardia, unspecified (principal) | CPT/HCPCS: 82570; 82728; 83540; 83550; 84156; 84443 ==

== ENCOUNTER 2024-07-06 09:05 | Outpatient (CLI) | payer BC, SELFPAY ==
--- NOTE | 2024-07-06 09:15 | CRLHL7_ITS ---
For Patients: As a result of the Century Cures Act, medical imaging exams and procedure reports are released immediately into your electronic medical record. You may view this report before your referring provider. If you have questions, please contact your health care provider. OB ULTRASOUND/BIOPHYSICAL PROFILE FOLLOWUP, 07/06/2024 CLINICAL HISTORY: Chronic HTN, history IUFD. LMP: 11/25/2023. COMPARISON: None. TECHNIQUE: Transabdominal OB ultrasound. Real time marinelli scale imaging of the fetus was performed. FINDINGS: Gestation: Single. GA: 32 weeks 0 days. Cervix: Not visualized. Positioning: Breech. Amniotic Fluid: 4.9 cm. Placenta: Technique: Transabdominal. Placenta Position: Posterior. Dopplers: Heart Rate: 134 bpm. Biophysical Profile Total Score: 8 Gross Body Movements: 2 Tone: 2 Respiratory Activity: 2 Amniotic Fluid: 2 Biometry: BDP: 8.0 cm, 31 weeks 6 days. 38% HC: 31.3 cm, 35 weeks 0 days. 88% AC: 29.2 cm, 33 weeks 1 day. 81% FL: 5.9 cm, 30 weeks 5 days. 9% EFW: 1988 grams, 4 lb 6 oz. Age by this US: 32 weeks 5 days. RODGER by this US: 32 weeks 5 days. Percentile by RODGER: 56% IMPRESSION: 1. Sonographic gestational age 32 weeks 5 days and sonographic due date 08/26/2024. Sonographic age 5 days ahead of the clinical age. 2. Estimated weight 56th percentile. Abdominal circumference 81st percentile. 3. Normal biophysical profile score of 8/8. Zay Drake M.D. Diagnostic Radiologist [email or web address] Transcribed: 11:34 am DW/Dictated by: Zay Drake MD @ 07/06/2024 10:23:00 AM (Electronically Signed)
== END 2024-07-06 09:06 | disposition home or self-care (01) ==
LOC: US 09:06
PROVIDERS: PCP Family Medicine; Visit Provider Obstetrics & Gynecology
DX: O10.913 Unspecified pre-existing hypertension complicating pregnancy, third trimester (principal); Z87.59 Personal history of other complications of pregnancy, childbirth and the puerperium; Z3A.32 32 weeks gestation of pregnancy
CPT/HCPCS: 76816; 76819

== ENCOUNTER 2024-07-06 10:41 | Outpatient (CLI) | payer BC, SELFPAY | END 2024-07-06 10:42 | disposition home or self-care (01) | PROVIDERS: PCP Family Medicine; Visit Provider Obstetrics & Gynecology | DX: O10.913 Unspecified pre-existing hypertension complicating pregnancy, third trimester (principal); R79.0 Abnormal level of blood mineral; Z3A.32 32 weeks gestation of pregnancy | CPT/HCPCS: 80053; 82728; 83540; 83550 ==

== ENCOUNTER 2024-07-13 09:30 | Outpatient (RCR) | payer BC, SELFPAY ==
--- NOTE | 2024-06-15 10:05 | URNOTE ---
Request received for authorization for Iron Sucrose (Venofer) ([id number]). Prior authorization is not required per [facility] Ref#[id number], date range 06/14/2024 to 10/22/2024.
[2024-06-16 10:01] VITALS: BP 120/76; PULSE 99; RESP 16; TEMP 36.1; O2SAT 98
[2024-06-16 10:37] VITALS: BP 122/80; PULSE 88; RESP 16; TEMP 36.1; O2SAT 97
[2024-06-16 11:03] VITALS: BP 122/80; PULSE 95; RESP 16; TEMP 36.1; O2SAT 98
[2024-07-13 09:19] VITALS: BP 128/81; PULSE 93; RESP 16; TEMP 36.1; O2SAT 98
[2024-07-13 10:04] VITALS: BP 117/80; PULSE 82; RESP 16; O2SAT 96
== END 2024-12-13 23:59 | disposition home or self-care (01) ==
LOC: CCIC 09:30
PROVIDERS: PCP Family Medicine; Referring Provider Family Medicine; Visit Provider Clinical Nurse Specialist
DX: O99.013 Anemia complicating pregnancy, third trimester (principal); D50.9 Iron deficiency anemia, unspecified
CPT/HCPCS: 96365; J1756

== ENCOUNTER 2024-07-18 18:35 | Outpatient (CLI) | payer BC, SELFPAY ==
[2024-07-18 18:50] VITALS: PULSE 104; O2SAT 99
[2024-07-18 18:53] VITALS: BP 136/86; PULSE 104; TEMP 36.6
[2024-07-18 18:55] VITALS: PULSE 105; O2SAT 100
[2024-07-18 19:00] VITALS: PULSE 101; O2SAT 99
[2024-07-18 19:05] VITALS: PULSE 100; O2SAT 100
[2024-07-18 19:30] LABS: Appearance Urine Clear (Clear); Bilirubin Urine Negative (Negative); Blood Urine Negative (Negative); Color Urine Yellow (Yellow); Glucose Urine Negative (Negative); Ketones Urine Negative (Negative); Leukocyte Esterase Urine Negative (Negative); Nitrite Urine Negative (Negative); Protein Urine Negative (Negative); Specific Gravity Urine 1.025 (1.000-1.030); Urobilinogen Urine 0.2 (0.2-1.0)
--- NOTE | 2024-07-18 20:34 | PC.OBNST ---
NST Note NST Note Start: 07/18/24 18:39 Freq: ONCE Status: Active Protocol: Document 07/18/24 20:20 SJM (Rec: 07/18/24 20:34 SJM Desktop) NST Note 3 Para (# of births) 2 EDC 08/31/24 Gestational Age In Weeks & Days 33 Weeks & 5 Days High Risk Factors High Blood Pressure - Preexisting Patient Presented with Complaint(s) of Decreased movement Reactive Yes Appropriate for Gestational Age Yes RN Lucila RN Date 07/18/24 Reactive Yes Appropriate for Gestational Age Yes RN Roya RN Date 07/18/24 OB NST charge Yes Complete NST Note via Write Note Yes The provider's electronic signature indicates the NST is reactive/appropriate for gestational age. *Note to provider: If an addendum is required, open the patient's chart and click on the note under the Nurse/Allied Health tab.
== END 2024-07-18 20:39 | disposition home or self-care (01) ==
LOC: OB OUT 18:35 → OB 18:36
PROVIDERS: PCP Family Medicine; Visit Provider Obstetrics & Gynecology
DX: O10.913 Unspecified pre-existing hypertension complicating pregnancy, third trimester (principal); Z3A.33 33 weeks gestation of pregnancy
CPT/HCPCS: 59025; 81003; G0463

== ENCOUNTER 2024-07-20 09:06 | Outpatient (CLI) | payer BC, SELFPAY | END 2024-07-20 09:07 | disposition home or self-care (01) | PROVIDERS: PCP Family Medicine; Visit Provider Obstetrics & Gynecology | DX: O10.919 Unspecified pre-existing hypertension complicating pregnancy, unspecified trimester (principal); Z87.59 Personal history of other complications of pregnancy, childbirth and the puerperium | CPT/HCPCS: 76819 ==

== ENCOUNTER 2024-07-20 11:16 | Outpatient (CLI) | payer BC, SELFPAY ==
[2024-07-20 11:32] VITALS: BP 124/75; PULSE 82; RESP 16; TEMP 36.6
--- NOTE | 2024-07-20 12:49 | PC.OBNST ---
NST Note NST Note Start: 07/20/24 11:18 Freq: ONCE Status: Active Protocol: Document 07/20/24 12:47 CUDEDEYH (Rec: 07/20/24 12:49 CUDDYH [id number]) NST Note 3 Para (# of births) 2 EDC 08/31/24 Gestational Age In Weeks & Days 34 Weeks & 0 Days High Risk Factors History of / Stillborn Patient Presented with Complaint(s) of Decreased movement Reactive Yes Appropriate for Gestational Age Yes RN Avani Carpenter RN Date 07/20/24 Reactive Yes Appropriate for Gestational Age Yes RN Dr. Ramirez Date 07/20/24 OB NST charge Yes Complete NST Note via Write Note Yes The provider's electronic signature indicates the NST is reactive/appropriate for gestational age. *Note to provider: If an addendum is required, open the patient's chart and click on the note under the Nurse/Allied Health tab.
== END 2024-07-20 12:47 | disposition home or self-care (01) ==
LOC: OB OUT 11:16 → OB 11:17
PROVIDERS: PCP Family Medicine; Visit Provider Obstetrics & Gynecology
DX: O10.919 Unspecified pre-existing hypertension complicating pregnancy, unspecified trimester (principal)
CPT/HCPCS: 59025; G0463

== ENCOUNTER 2024-07-27 10:21 | Outpatient (CLI) | payer BC, SELFPAY ==
[2024-07-27] VITALS (13 sets, daily range): BP systolic 104–134; BP diastolic 58–79; PULSE 77–113
[2024-07-27 11:15] LABS: Blood Urea Nitrogen* 6 mg/dL (5-24); Creatinine* 0.5 mg/dL (0.5-1.5); Estimated Glomerular Filt Rate 128 ml/min
[2024-07-27 11:16] LABS: Alanine Aminotransferase* 13 U/L (4-35); Aspartate Amino Transferase* 15 U/L (12-35)
[2024-07-27 11:26] LABS: Hematocrit 38.5 % (33.0-51.0); Hemoglobin* 12.9 gm/dL (12.0-16.0); Mean Corpuscular HGB Conc 34 gm/dL (32-36); Mean Corpuscular Hemoglobin 28 pg (26-34); Mean Corpuscular Volume 84 fL (80-100); Platelet Count* 179 K/uL (140-440); Red Blood Count 4.56 m/uL (4.00-5.20); White Blood Count* 8.85 K/uL (4.50-11.00)
[2024-07-27 11:30] LABS: Slide Review Reflex No
[2024-07-27 11:38] LABS: Total Protein Urine 15 mg/dL
[2024-07-27 11:39] LABS: Creatinine Urine 60.5 mg/dL; Protein Creatinine Ratio Urine 0.25 (0-0.19)
[2024-07-27] MEDS: ACETAMINOPHEN 500 MG TABLET 1000 MG PO (11:44)
[2024-07-27] MEDS: diphenhydrAMINE 50 MG/ML inj 25 MG IVP (11:45)
[2024-07-27] MEDS: METOCLOPRAMIDE HCL 5 MG/ML INJ 10 MG IVP (11:45)
--- NOTE | 2024-07-27 14:16 | PC.OBNST ---
NST Note NST Note Start: 07/27/24 10:29 Freq: ONCE Status: Active Protocol: Document 07/27/24 13:50 CUDDYH (Rec: 07/27/24 14:16 CUDDYH [id number]) NST Note 3 Para (# of births) 2 EDC 08/31/24 Gestational Age In Weeks & Days 35 Weeks & 0 Days High Risk Factors High Blood Pressure - Preexisting Reactive Yes Appropriate for Gestational Age Yes RN Avani Carpenter RN Date 07/27/24 Reactive Yes Appropriate for Gestational Age Yes ELAINE Brown RN Date 07/27/24 OB NST charge Yes Complete NST Note via Write Note Yes The provider's electronic signature indicates the NST is reactive/appropriate for gestational age. *Note to provider: If an addendum is required, open the patient's chart and click on the note under the Nurse/Allied Health tab.
== END 2024-07-27 13:50 | disposition home or self-care (01) ==
LOC: OB OUT 10:22 → OB 10:23
PROVIDERS: PCP Family Medicine; Visit Provider Obstetrics & Gynecology
DX: O10.913 Unspecified pre-existing hypertension complicating pregnancy, third trimester (principal); Z3A.35 35 weeks gestation of pregnancy
CPT/HCPCS: 36415; 59025; 76815; 82565; 82570; 84156; 84450; 84460; 84520; 85027; G0463; A9270; J1200; J2765

== ENCOUNTER 2024-07-29 09:31 | Outpatient (CLI) | payer BC, SELFPAY ==
[2024-07-30 15:35] LABS: Strep B DNA Probe Negative (Negative)
[2024-07-31 14:24] LABS: Strep B Susceptibility Needed? No
== END 2024-07-29 09:32 | disposition home or self-care (01) ==
LOC: NFLDREF 09:32
PROVIDERS: PCP Family Medicine; Visit Provider Obstetrics & Gynecology
DX: Z34.93 Encounter for supervision of normal pregnancy, unspecified, third trimester (principal); Z3A.35 35 weeks gestation of pregnancy
CPT/HCPCS: 87081; 87653

== ENCOUNTER 2024-07-30 21:51 | Outpatient (CLI) | payer BC, SELFPAY ==
[2024-07-30 22:01] VITALS: PULSE 112; O2SAT 96
[2024-07-30 22:09] VITALS: BP 134/78; PULSE 110; RESP 16; TEMP 36.1
--- NOTE | 2024-07-30 23:23 | PC.OBNST ---
NST Note NST Note Start: 07/30/24 21:51 Freq: ONCE Status: Active Protocol: Document 07/30/24 23:21 MARY KAY (Rec: 07/30/24 23:23 MARY KAY Desktop) NST Note 3 Para (# of births) 2 EDC 08/31/24 Gestational Age In Weeks & Days 35 Weeks & 3 Days High Risk Factors High Blood Pressure - Gestational Patient Presented with Complaint(s) of Decreased movement, Headache Other Complaints Elevated blood pressures at home Reactive Yes Appropriate for Gestational Age Yes ELAINE Sun, RN Date 07/30/[address] Rodrigues Date 07/30/24 OB NST charge Yes Complete NST Note via Write Note Yes The provider's electronic signature indicates the NST is reactive/appropriate for gestational age. *Note to provider: If an addendum is required, open the patient's chart and click on the note under the Nurse/Allied Health tab.
== END 2024-07-30 23:12 | disposition home or self-care (01) ==
LOC: OB OUT 21:51 → OB 21:51
PROVIDERS: PCP Family Medicine; Visit Provider Obstetrics & Gynecology
DX: O13.3 Gestational [pregnancy-induced] hypertension without significant proteinuria, third trimester (principal); O36.8130 Decreased fetal movements, third trimester, not applicable or unspecified; O26.893 Other specified pregnancy related conditions, third trimester; Z3A.35 35 weeks gestation of pregnancy
CPT/HCPCS: 59025; G0463

== ENCOUNTER 2024-07-31 18:11 | Outpatient (CLI) | payer BC, SELFPAY ==
[2024-07-31] VITALS (9 sets, daily range): BP systolic 110–141; BP diastolic 58–79; PULSE 80–93; O2SAT 97
[2024-07-31] MEDS: METOCLOPRAMIDE 10 MG TABLET PO (18:54)
[2024-07-31] MEDS: ACETAMINOPHEN 500 MG TABLET 1000 MG PO (18:54)
[2024-07-31 19:11] LABS: Appearance Urine Clear (Clear); Bilirubin Urine Negative (Negative); Blood Urine Negative (Negative); Color Urine Yellow (Yellow); Glucose Urine Negative (Negative); Ketones Urine Negative (Negative); Leukocyte Esterase Urine Negative (Negative); Nitrite Urine Negative (Negative); Protein Urine Negative (Negative); Urobilinogen Urine 0.2 (0.2-1.0); pH Urine 6.5 (5.0-8.5)
[2024-07-31 19:35] LABS: Hematocrit 34.7 % (33.0-51.0); Hemoglobin* 11.8 gm/dL (12.0-16.0); Mean Corpuscular HGB Conc 34 gm/dL (32-36); Mean Corpuscular Hemoglobin 29 pg (26-34); Mean Corpuscular Volume 84 fL (80-100); Platelet Count* 186 K/uL (140-440); Red Blood Count 4.11 m/uL (4.00-5.20); White Blood Count* 9.82 K/uL (4.50-11.00)
[2024-07-31 19:41] LABS: Slide Review Reflex No
[2024-07-31 19:49] LABS: Alanine Aminotransferase* 15 U/L (4-35); Aspartate Amino Transferase* 22 U/L (12-35); Blood Urea Nitrogen* 11 mg/dL (5-24); Creatinine* 0.5 mg/dL (0.5-1.5); Estimated Glomerular Filt Rate 128 ml/min
--- NOTE | 2024-07-31 22:13 | PC.OBNST ---
NST Note NST Note Start: 07/31/24 18:14 Freq: ONCE Status: Active Protocol: Document 07/31/24 20:20 CON (Rec: 07/31/24 22:13 CON No Response) NST Note 3 Para (# of births) 2 EDC 08/31/24 Gestational Age In Weeks & Days 35 Weeks & 4 Days High Risk Factors High Blood Pressure - Preexisting,History of /Stillborn Patient Presented with Complaint(s) of Headache,Other Other Complaints Blood pressure readings at home: 149/100 and 143/102 Reactive Yes Appropriate for Gestational Age Yes ELAINE Harry, ELAINEC Date 07/31/24 Reactive Yes Appropriate for Gestational Age Yes ELAINE Sun, RN Date 07/31/24 OB NST charge Yes Complete NST Note via Write Note Yes The provider's electronic signature indicates the NST is reactive/appropriate for gestational age. *Note to provider: If an addendum is required, open the patient's chart and click on the note under the Nurse/Allied Health tab.
== END 2024-07-31 20:25 | disposition home or self-care (01) ==
LOC: OB OUT 18:12 → OB 18:13
PROVIDERS: PCP Family Medicine; Visit Provider Obstetrics & Gynecology
DX: O10.913 Unspecified pre-existing hypertension complicating pregnancy, third trimester (principal); Z3A.35 35 weeks gestation of pregnancy
CPT/HCPCS: 36415; 59025; 81003; 82565; 84450; 84460; 84520; 85027; G0463; A9270

== ENCOUNTER 2024-08-04 09:07 | Outpatient (CLI) | payer BC, SELFPAY ==
--- NOTE | 2024-08-04 09:15 | CRLHL7_ITS ---
For Patients: As a result of the Century Cures Act, medical imaging exams and procedure reports are released immediately into your electronic medical record. You may view this report before your referring provider. If you have questions, please contact your health care provider. OBSTETRICAL ULTRASOUND ???BIOPHYSICAL PROFILE, FOLLOW-UP, 08/04/2024 INDICATION: History of IUFD, CHTN. 3, para 1. CLINICAL HISTORY: LMP: 11/25/2023 RODGER by LMP: 08/31/2024 Gestational Age: 36 weeks 1 days COMPARISON: 07/06/2024, 06/08/2024 TECHNIQUE: Real-time marinelli-scale imaging of the fetus was performed transabdominal. FINDINGS: Fetus: Single Cervix: Not visualized positioning: Vertex Amniotic fluid: 4.6 cm SDP BIOPHYSICAL PROFILE: Gross body movements: 2 tone: 2 Respiratory activity: 2 Amniotic fluid SDP: 2 Total score: 8 Placenta technique: Transabdominal Placenta position: Posterior heart rate: 154 bpm BIOMETRY: BPD: 8.6 cm, 34 weeks 6 days, 22% HC: 32.2 cm, 36 weeks 2 days, 24% AC: 32.3 cm, 36 weeks 2 days, 64% FL: 7.0 cm, 35 weeks 5 days, 36% FL/AC Ratio: 21.55% HC/AC ratio: 0.99 EFW: 2816 grams; 6 lbs. 3 oz. age by this ultrasound: 35 weeks 6 days RODGER by this ultrasound: 09/02/2024 Percentile by RODGER: 47% IMPRESSION: 1. The sonographic gestational age is 35 weeks 6 days and sonographic due date is 09/02/2024. Good correlation with dates. Normal interval growth. 2. Normal biophysical profile score of 8/8. 3. Estimated weight is 47th percentile. Abdominal circumference is 64th percentile. ZAY HERNANDEZ M.D. Diagnostic Radiologist [email or web address] Transcribed: 1:[address]/Dictated by: Zay Hernandez MD @ 08/04/2024 12:58:00 PM (Electronically Signed)
== END 2024-08-04 09:08 | disposition home or self-care (01) ==
LOC: US 09:07
PROVIDERS: PCP Family Medicine; Visit Provider Obstetrics & Gynecology
DX: O10.913 Unspecified pre-existing hypertension complicating pregnancy, third trimester (principal); Z3A.36 36 weeks gestation of pregnancy
CPT/HCPCS: 76816; 76819; A9270; J3475

== ENCOUNTER 2024-08-04 17:00 | Inpatient (IN) | payer BC, SELFPAY ==
[2024-08-04] VITALS (74 sets, daily range): BP systolic 108–135; BP diastolic 59–90; PULSE 72–109; RESP 16–18; TEMP 36.4–36.6; O2SAT 91–100; BMI 34.2
[2024-08-04 10:53] LABS: Hematocrit 39.7 % (33.0-51.0); Hemoglobin* 13.3 gm/dL (12.0-16.0); Mean Corpuscular HGB Conc 34 gm/dL (32-36); Mean Corpuscular Hemoglobin 28 pg (26-34); Mean Corpuscular Volume 84 fL (80-100); Platelet Count* 193 K/uL (140-440); Red Blood Count 4.72 m/uL (4.00-5.20); White Blood Count* 9.94 K/uL (4.50-11.00)
[2024-08-04 10:54] LABS: Slide Review Reflex No
[2024-08-04] MEDS: diphenhydrAMINE 25 MG CAPSULE PO (11:04)
[2024-08-04] MEDS: METOCLOPRAMIDE 10 MG TABLET PO (11:04)
[2024-08-04] MEDS: ACETAMINOPHEN 500 MG TABLET 1000 MG PO (11:04)
[2024-08-04 11:08] LABS: Aspartate Amino Transferase* 15 U/L (12-35); Blood Urea Nitrogen* 11 mg/dL (5-24); Creatinine* 0.5 mg/dL (0.5-1.5); Estimated Glomerular Filt Rate 128 ml/min
[2024-08-04 11:09] LABS: Alanine Aminotransferase* 11 U/L (4-35)
[2024-08-04 11:39] LABS: Creatinine Urine 47.9 mg/dL; Protein Creatinine Ratio Urine 0.21 (0-0.19); Total Protein Urine 10 mg/dL
[2024-08-04] MEDS: NIFEdipine 30 MG TAB.ER.24 PO (12:50)
[2024-08-04] MEDS: SUMAtriptan succinate 25 MG TABLET PO (15:30)
--- NOTE | 2024-08-04 16:48 | P.LDBA_ITS ---
Subjective History of Present Illness Date Seen: 08/04/24 Narrative: Patient is being admitted to Labor and Delivery for repeat delivery in the setting of CHTN with superimposed severe features. She is a 33 year old at 36 1/7 weeks gestation. Her full history and physical was dictated by Dr. MCNAMARA on 07/29/24. Please see this for details. Patient was seen today for increased surveillance in the setting of uncontrolled CHTN, patient has been noticing increased BP with home monitoring(systolics in 150s, diastolics in the 100s)and has been experiencing headache for the past at least 2 days that have not resolved with Tylenol. This has happened in the past week and we have monitored at labor and delivery, treated headache with Tylenol, Reglan and Benadryl which in the past have improved her symptoms, today it has brought no relief. Labs have been collected and these have remained normal. We had her try to eat, we also just recently tried Sumatriptan and this did not help either. Headache is described as throbbing, located behind her eyes. I have also started her on Nifedipine ER 30mg daily for management of mild range elevated blood pressures. 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 Specific Issues/Plans Parter: Isaac H&P by NAIMA on 07/29/24 UTILIZE LARGE BLOOD PRESSURE CUFF. #Chronic Hypertension-No meds currently but uncontrolled 07/29/24 -Start Labetalol 200 mg daily, monitor BP BID, reevaluate in 2 weeks. 02/05/24 stop labetalol due to hypotension. -Baseline PreE labs: slightly elevated AST and ALT, 02/05/24 repeat: all normal. -Start baby ASA at 12 weeks -Delivery planned for 37 weeks, Betamethasone #1 07/29/24- #2: 07/30/24 #IUFD at 23 weeks- June 2023 -Autopsy report cause of : cord accident, stricture at umbilical cord insertion. -IUGR diagnosed at anatomy US, evaluated by MFM and IUFD diagnosed at 23 weeks -, complicated by retained products of conception, endometritis, persistent pain -MFM pre conception consult completed, as below #Sub nephrotic Proteinuria -Evaluated and monitored by nephrology, f/u ordered:03/02/24: keep blood pressures less than 140/90. -Repeat 24 hour urine collection this - 247mg/dL -Repeat 24 hour urine protein 03/30/24: 392mg/dL #History of severe preeclampsia- first #History of section, due to malpresentation- VTOLAC IF IN LABOR - for IUFD at 23 weeks -Considering TOLAC, consent given 05/13/24-continue to review at upcoming appointments -Consent signed-06/02/24 -Schedule at 39 weeks if undelivered on 08/24/24 #History of mood disorder #History of MRSA-2018 - Culture: Collected 05/13/24: negative - Repeat: 05/27/24: Negative # Vulvar varicosities -Vulvar support garment given 05/04 #CPP and endometriosis -PT referral #Diastasis recti/possible umbilical hernia -PT referral #Episodes of dizziness, lightheadedness-most likely vasovagal -More frequent at 24 weeks -Neurology and cardiology referral -Cardiology: normal echo and holter. Most likely secondary to low ferritin -S/P iron infusion x 2 #Factor V Leiden Heterozygous- Low risk Family history of VTE: Possibly her mom Will do PP anticoagulation for 6 weeks surveillance plan: -Growth US every 4 weeks starting at 24 weeks, weekly testing after 32 weeks. Form completed and scanned. [facility] pre conception consult recommendations 08/28/23: Early ultrasound at primary OB office for confirmation in dating, ultrasound at [facility] at 11-12 weeks, early anatomy ultrasound at 15-16 weeks, comprehensive ultrasound at 18- 20 weeks, serial growth ultrasounds every 4 weeks after comprehensive ultrasound, weekly BPP at 32 weeks. Imagin03/10/24: Early anatomy ultrasound with [facility]. Posterior low-lying placenta, three-vessel umbilical cord, single deepest pocket of amniotic fluid: 5.2 cm. EFW: 32 percentile, AC: 58 percentile. No anatomy anomalies commonly identified by ultrasound at this gestational age identified. Growth parameters consistent with gestational age. Low lying placenta but this is a very common finding at this point in gestation. Will plan to reassess the time of anatomic survey. Level 2 ultrasound scheduled at [place] to be completed on March 31. After this time continue monthly growth ultrasounds starting at 24 weeks in addition to weekly testing starting at 32 weeks. 03/30/24: Early level 2. Normal anatomy. Normal amount of amniotic fluid. Follow-up for suboptimal anatomy/growth in 4 weeks with MFM at [place]. Monthly growth ultrasounds starting at 26-28 weeks with Radiology at [place]. Weekly testing starting at 32 weeks with radiology in [place]. Delivery recommended between [id number]. 04/28/24: FU with MFM: Morales intrauterine at 22w 1d gestational age. None of the anomalies commonly detected by ultrasound were evident in the detailed anatomic survey described above.Growth parameters and estimated weight were consistent with appropriate for gestational age pattern of growth.The amniotic fluid volume appeared normal. Continue with previous plan. 05/13/2024: Vertex, single deepest pocket of amniotic fluid: 3.7 cm, BPD: 11th percentile, HC: 21 percentile, AC: 53 percentile, FL: 15 percentile. EFW: 31 percentile 06/09/24: Breech, BPD:53%, HC:46%, AC:55%, FL:11%. EFW: 1153g, 36%. SDP: 3.5cm. 07/06/24: Breech presentation, single deepest pocket of amniotic fluid 4.9 cm, BPD: 38 percentile, HC: 88 percentile, a seek: 81 percentile, FL: 9th percentile. EFW: 1988 g, 56 percentile. BPP 8/8. 08/04/24: Growth ultrasound findings: Vertex, single deepest pocket of amniotic fluid 4.6 cm, BPD: 22 percentile, HC: 24 percentile, AC: 64 percentile, FL: 36 percentile. EFW: 47th percentile. BPP: 12/31. Vaccinations: COVID:Declined Flu: Declines Tdap: 07/29/24 RSV: Declines 32 week mental health: 07/06/24 : PHQ9: 1, GAD7: 0 34 week hgb: 07/20/24 12.4 Last PAP: collected 02/17/24 OB - Problem Based A/P Additional Plan (1) Severe preeclampsia: Status: Acute (2) Chronic hypertension affecting : Status: Acute Plan 1. CHTN with superimposed severe features-unremitting headache, will start magnesium sulfate infusion for seizure prophylaxis, to complete for 24 hours after delivery. Plan to complete labs every 6 hours. Will continue with Nifedipine ER30mg daily. Close monitoring of V/S, I/O, magnesium toxicity sx. 2. Patient has expressed her desire to proceed with a repeat delivery. Type and screen ordered. She did eat what is considered a full meal at around 1pm today, will proceed with surgery at 9pm unless any concerns for worsening maternal condition. This was discussed with anesthesia. 3. Pediatrics to be available for delivery. OB Exam Physical Exam Vital signs: Pulse BP Pulse Ox 82 132/86 98 08/04/24 14:37 08/04/24 15:33 08/04/24 15:15 Detailed Labor and Delivery Exam Patient Gravid: Yes Fetus (Single) Heart Rate Baseline: 130 Monitor Accelerations: Present Monitor Decelerations: Variable (Sporadic) Pediatric Physician Variability: Moderate (6-25)
[2024-08-04] MEDS: LACTATED RINGERS 1000 ML 1,000 ML 125 ML IV (17:35)
[2024-08-04] MEDS: MAGNESIUM IV 4 GM/100 ML PIGGYBACK IVPB (17:40)
[2024-08-04] MEDS: MAGNESIUM Infusion 40 GM/1,000 ML IV.SOLN IVPB (18:12)
[2024-08-04] MEDS: CEFAZOLIN 2 GM INJ IVP (21:08)
[2024-08-04] MEDS: miSOPROStoL 800 MCG/4 TABLET PR (21:45)
[2024-08-04] MEDS: KETOROLAC 30 MG/ML inj IVP (22:02)
--- NOTE | 2024-08-04 22:52 | P.NB_ITS ---
Nerve Block Nerve Block Time Seen by Provider: 20:58 Date Seen: 08/04/24 Type of block requested by surgeon for post-operative analgesia: TAP Side: bilateral Time out performed: Yes Verification of patient name: Yes Verification of date of : Yes Name of person performing procedure: MITALI Argueta Continuous monitoring Was continuous monitoring of O2 sat, B/P, phototypesetting equipment monitor, recorded every 15 minutes?: Yes Procedure Checklist: sterile prep, needles and gloves Ultrasound guided. Images saved: Yes Medications given in 5ml increments after negative aspiration: Marcaine %: 0.25 mL: 30 Needle gauge: 20 and Exparel mL: 10 Needle gauge: 20 Patient tolerated procedure well: Yes Block Charges Block Charge (with Pro Fee): TAP Bilateral Use of Ultrasound Machine for Block: Yes- US Guidance/pain block
--- NOTE | 2024-08-04 22:54 | P.ANES_ITS ---
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
--- NOTE | 2024-08-04 22:54 | W.ANESCHARGE ---
Anesthesia Charges Start Date/Time Anesthesia Start Date: 08/04/24 Anesthesia Start Time: 20:58 Stop Date/Time Anesthesia Stop Date: 08/04/24 Anesthesia Stop Time: 23:38 Coding CPT Codes CPT Codes: ANESTH CS DELIVERY - 27111 ([id number]) P2 - PATIENT W/MILD SYST DISEASE, QZ - TITLE ONE READING TEACHER SVC W/O PATIENT ACCESS SPECIALIST BY
--- NOTE | 2024-08-04 22:55 | PM.OBPRCCS ---
OB Delivery Proc Additional Procedures Tubal Ligation at the time of : No Other: No Procedure Date of procedure: 08/04/24 Pre-op diagnosis: IUP at 36 1/7 weeks CHTN with superimposed severe features History of previous section desiring repeat Post-op diagnosis: same (Now delivered) Procedure Done: Global Will [facility] bill your pro fee for this procedure?: Yes Blood Loss Measurement Type: QBL (183mL) Bakri Used: No IV fluids (mL): 400 Urine Output (mL): 225 Urine Output Comment: Clear at end of procedure Surgeon: Caty Ramirez MD Anesthesia Type: Spinal Findings: FINDINGS: Live-born male , breech presentation, Apgars 6, 6 and 8 at 1,5 and 10 minutes respectively. weight 6 lb 0 oz. Grossly normal bilateral fallopian tubes and ovaries. Dense adhesions of fascia and rectus muscles. Procedure Name: Repeat low transverse section Procedure Description: PROCEDURE: After obtaining informed consent, the patient was taken to the operating room where spinal anesthesia was obtained and found to be adequate. She was prepared and draped in the normal sterile fashion in the dorsal supine position with a leftward tilt. A Pfannenstiel skin incision was made with a scalpel along the line of the patient's previous Pfannenstiel scar. This incision was carried down to the underlying layer of fascia with the scalpel and Bovie. The fascia was incised in the midline and the incision extended laterally. The superior and inferior aspects of the fascial incision were grasped with Elder clamps, elevated and the underlying rectus muscles dissected off sharply and with electrocautery. This dissection took an increased amount of time given the dense adhesions. The rectus muscles were then in the midline. The Govind O retractor was then placed into the incision. The lower uterine segment was then incised in a transverse fashion with the scalpel. Upon entry into the uterus, clear amniotic fluid was noted. The uterine incision was extended cephalo caudally with blunt finger fractionation. sacrum/buttocks were brought to incision and with fundal pressure fetus was delivered up to scapulas, hips were then grasped with a lap and gently assisted delivery the rest of the body, essentially fetus was delivered with only fundal pressure.The nose and mouth were suctioned with the bulb suction. The cord was doubly clamped and cut, after 30 seconds of delayed cord clamping and the was handed off the field for evaluation. The placenta was delivered spontaneously with umbilical cord traction and fundal massage. The uterus was cleared of all clots and debris. The uterine incision was reapproximated in a running locking fashion with a 0 Vicryl suture. A 2nd layer of the same suture was used to imbricate in horizontal fashion. Hemostasis secured. The gutters were inspected and cleared of blood clots. All instruments and retractors were removed. The anterior peritoneum was reapproximated in a running fashion with a 3-0 Vicryl suture. The subfascial tissues were carefully inspected and hemostasis assured. The fascia was reapproximated in a running fashion with a looped 0 Vicryl suture. The subcutaneous tissues were copiously irrigated. Hemostasis was assured. The subcutaneous fat layer was reapproximated with interrupted sutures of 3-0 Vicryl. The skin was closed in a subcuticular fashion with 4-0 Monocryl. LiquiBand and dressing were applied. The patient tolerated the procedure well. Sponge, lap, needle, and instrument counts were reported as correct x2. The patient was taken to the recovery room, awake, and in stable condition. She did receive 2 grams of IV Ancef preoperatively. Episodes of intermittent uterine atony noted this responded well to rectal Cytotec 800mcg and 30 units of IV Oxytocin. Complications: None Pathology: specimen obtained, sent to pathology Surgery Debrief Performed: Yes Condition: stable Disposition: floor
[2024-08-05] VITALS (26 sets, daily range): BP systolic 92–125; BP diastolic 54–86; PULSE 68–90; RESP 16–18; TEMP 36.4–36.9; O2SAT 95–99
[2024-08-05] MEDS: OXYCODONE 5 MG TABLET PO (00:11)
[2024-08-05 00:45] LABS: Hematocrit 40.4 % (33.0-51.0); Hemoglobin* 13.6 gm/dL (12.0-16.0); Mean Corpuscular HGB Conc 34 gm/dL (32-36); Mean Corpuscular Hemoglobin 29 pg (26-34); Mean Corpuscular Volume 85 fL (80-100); Platelet Count* 200 K/uL (140-440); Red Blood Count 4.76 m/uL (4.00-5.20); White Blood Count* 17.71 K/uL (4.50-11.00)
[2024-08-05 00:48] LABS: Slide Review Reflex No
[2024-08-05 01:00] LABS: Alanine Aminotransferase* 13 U/L (4-35); Aspartate Amino Transferase* 22 U/L (12-35); Blood Urea Nitrogen* 8 mg/dL (5-24); Creatinine* 0.5 mg/dL (0.5-1.5); Est. Creatinine Clearance* 145.35; Estimated Glomerular Filt Rate 128 ml/min
[2024-08-05] MEDS: ACETAMINOPHEN 500 MG TABLET 1000 MG PO ×4 (01:06→22:09)
[2024-08-05] MEDS: SIMETHICONE 80 MG TAB.CHEW PO (01:39)
[2024-08-05] MEDS: ONDANSETRON 2 MG/ML inj 4 MG IV (01:40)
[2024-08-05] MEDS: KETOROLAC 30 MG/ML inj IVP ×4 (04:03→22:09)
[2024-08-05] MEDS: LACTATED RINGERS 1000 ML 1,000 ML 75 ML IV ×2 (06:13→18:26)
[2024-08-05 06:35] LABS: Hematocrit 39.1 % (33.0-51.0); Hemoglobin* 13.2 gm/dL (12.0-16.0); Mean Corpuscular HGB Conc 34 gm/dL (32-36); Mean Corpuscular Hemoglobin 28 pg (26-34); Mean Corpuscular Volume 84 fL (80-100); Platelet Count* 188 K/uL (140-440); Red Blood Count 4.65 m/uL (4.00-5.20); White Blood Count* 12.87 K/uL (4.50-11.00)
[2024-08-05 06:38] LABS: Slide Review Reflex No
[2024-08-05 06:50] LABS: Alanine Aminotransferase* 11 U/L (4-35); Aspartate Amino Transferase* 20 U/L (12-35); Blood Urea Nitrogen* 10 mg/dL (5-24); Creatinine* 0.5 mg/dL (0.5-1.5); Est. Creatinine Clearance* 145.35; Estimated Glomerular Filt Rate 128 ml/min
--- NOTE | 2024-08-05 08:17 | PM.OBPNVD1 ---
OB - PN:Subj Subjective Time Seen by Provider: 08:17 Date Seen: 08/05/24 Patient comments OB post-: pain well controlled, tolerating diet, flatus present and other [place] infant status: doing well feeding status: expressed and bottle feeding Narrative: Darius is a 33yo now 2 who is postop day 1 from a repeat low-transverse at 36 weeks 1 day gestation for severe pre eclampsia due to unremitting headache that was unresponsive to medication. She is currently on magnesium sulfate for seizure prophylaxis. Her preeclampsia labs have been normal. Her blood pressures have been normal since delivery. She reports a nagging headache that started approximately 1 hour ago on magnesium sulfate. She states the headache that she had prior to delivery resolved quickly after delivery with the nagging headache starting this morning. Denies nausea/vomiting. Is passing flatus. Has her Serrano catheter out and has urinated without difficulty. Is expressing breast milk and giving colostrum by bottle. She is a baby boy, Pablo, who is doing well. She will be receiving Lovenox subQ due to factor 5 Leiden mutation hand planning on continuing anticoagulation until she is 6 weeks . OB - PN: Obj Exam Physical Exam: Vital signs: Temp Pulse Resp BP Pulse Ox O2 Del Method 98.0 F 68 16 109/79 97 Room Air 08/05/24 07:45 08/05/24 07:45 08/05/24 07:45 08/05/24 07:45 08/05/24 07:45 08/05/24 07:45 Narrative: General: Pleasant, , well groomed woman in no acute distress. Vital signs: Included in her electronic medical record. Heart: Regular rate and rhythm without gallop, rub or murmur. Chest: Clear to auscultation bilaterally. Abdomen: Soft, nontender and nondistended with normal bowel sounds throughout. Fundus is firm at 2 cm below the umbilicus in the midline. Incision: Dressing is clean, dry and intact. Extremities: Trace bilateral lower extremity edema to the ankle. No pain. SCDs in place. OB - PN: Obj Data Labs Labs: Laboratory Results - last 24 hr 08/04/24 08/04/24 08/05/24 10:35 10:41 00:40 WBC 9.94 17.71 H RBC 4.72 4.76 Hgb 13.3 13.6 Hct 39.7 40.4 MCV 84 85 MCH 28 29 MCHC 34 34 Plt Count 193 200 BUN 11 8 Creatinine 0.5 0.5 Estimated Creat Clear 145.35 Estimated GFR 128 128 AST 15 22 ALT 11 13 Urine Creatinine 47.9 Protein/Creatinin Ratio 0.21 H Urine Total Protein 10 Blood Type AB Positive Antibody Screen NEGATIVE 08/05/24 06:15 WBC 12.87 H RBC 4.65 Hgb 13.2 Hct 39.1 MCV 84 MCH 28 MCHC 34 Plt Count 188 BUN 10 Creatinine 0.5 Estimated Creat Clear 145.35 Estimated GFR 128 AST 20 ALT 11 Urine Creatinine Protein/Creatinin Ratio Urine Total Protein Blood Type Antibody Screen OB - PN: A/P Delivery Assessment and Plan (1) Severe preeclampsia: Status: Acute Plan 1. Continue magnesium sulfate for seizure prophylaxis until the patient is 24 hours : 21:32 this evening. 2. Normal postop care. 3. Planning discharge home tomorrow or 08/07/24.
[2024-08-05] MEDS: ENOXAPARIN 40 MG/0.4 ML INJ SUBCUT (10:19)
[2024-08-05] MEDS: DOCUSATE SODIUM 100 MG CAPSULE PO (10:19)
[2024-08-05 12:35] LABS: Hematocrit 40.1 % (33.0-51.0); Hemoglobin* 13.5 gm/dL (12.0-16.0); Mean Corpuscular HGB Conc 34 gm/dL (32-36); Mean Corpuscular Hemoglobin 28 pg (26-34); Mean Corpuscular Volume 84 fL (80-100); Platelet Count* 179 K/uL (140-440); Red Blood Count 4.76 m/uL (4.00-5.20); White Blood Count* 11.21 K/uL (4.50-11.00)
[2024-08-05 12:38] LABS: Alanine Aminotransferase* 12 U/L (4-35); Aspartate Amino Transferase* 19 U/L (12-35); Blood Urea Nitrogen* 8 mg/dL (5-24); Creatinine* 0.4 mg/dL (0.5-1.5); Est. Creatinine Clearance* 181.69; Estimated Glomerular Filt Rate 135 ml/min; Slide Review Reflex No
[2024-08-05] MEDS: MAGNESIUM Infusion 40 GM/1,000 ML IV.SOLN IVPB (13:36)
[2024-08-05 18:17] LABS: Hematocrit 38.6 % (33.0-51.0); Hemoglobin* 13.1 gm/dL (12.0-16.0); Mean Corpuscular HGB Conc 34 gm/dL (32-36); Mean Corpuscular Hemoglobin 29 pg (26-34); Mean Corpuscular Volume 84 fL (80-100); Platelet Count* 192 K/uL (140-440); Red Blood Count 4.59 m/uL (4.00-5.20); White Blood Count* 11.54 K/uL (4.50-11.00)
[2024-08-05 18:38] LABS: Slide Review Reflex No
[2024-08-05 18:51] LABS: Alanine Aminotransferase* 12 U/L (4-35); Aspartate Amino Transferase* 20 U/L (12-35); Blood Urea Nitrogen* 8 mg/dL (5-24); Creatinine* 0.5 mg/dL (0.5-1.5); Est. Creatinine Clearance* 145.35; Estimated Glomerular Filt Rate 128 ml/min
[2024-08-06 04:40] VITALS: BP 105/70; PULSE 79; RESP 16; TEMP 36.9; O2SAT 98
[2024-08-06] MEDS: ACETAMINOPHEN 500 MG TABLET 1000 MG PO ×3 (04:46→20:23)
[2024-08-06] MEDS: KETOROLAC 30 MG/ML inj IVP (04:47)
[2024-08-06 07:31] VITALS: BP 106/75; PULSE 78; RESP 16; TEMP 36.9; O2SAT 97
--- NOTE | 2024-08-06 08:21 | PM.OBPNVD1 ---
OB - PN:Subj Subjective Time Seen by Provider: 08:25 Date Seen: 08/06/24 Narrative: Darius is a 33yo seen on POD2 from a repeat at 36 weeks 1 day gestation for severe pre eclampsia due to unremitting headache that was unresponsive to medication. She is status post 24 hour infusion of magnesium sulfate ending at 2130 yesterday. She has been normotensive since delivery, on no medications. She notes her headache has resolved since discontinuation of magnesium. No vision changes or RUQ pain. Minimal lower extremity edema. From recovery perspective, she notes she is doing well. Her pain is well controlled on ibuprofen and Tylenol. She notes transition movements are the hardest, but overall tolerable. Notes lochia is small volume. Tolerating p.o. intake without nausea or vomiting. Passing flatus, voiding spontaneously. Denies chest pain, dyspnea, dizziness and lightheadedness. She continues on Lovenox subQ due to factor 5 Leiden mutation hand planning on continuing anticoagulation until she is 6 weeks . OB - PN: Obj Exam Physical Exam: Vital signs: Temp Pulse Resp BP Pulse Ox O2 Del Method 98.4 F 78 16 106/75 97 Room Air 08/06/24 07:31 08/06/24 07:31 08/06/24 07:31 08/06/24 07:31 08/06/24 07:31 08/06/24 07:31 Narrative: General: Alert and oriented, no acute distress Psych: Appropriate mood and affect Abdomen: Soft, nontender and nondistended with normal bowel sounds throughout. Fundus is firm at 1 cm below the umbilicus in the midline. Incision: Dressing is clean, dry and intact. Extremities: Trace bilateral lower extremity edema. No pain. OB - PN: Obj Data Labs Labs: Laboratory Results - last 24 hr 08/05/24 08/05/24 12:16 18:13 WBC 11.21 H 11.54 H RBC 4.76 4.59 Hgb 13.5 13.1 Hct 40.1 38.6 MCV 84 84 MCH 28 29 MCHC 34 34 Plt Count 179 192 BUN 8 8 Creatinine 0.4 L 0.5 Estimated Creat Clear 181.69 145.35 Estimated GFR 135 128 AST 19 20 ALT 12 12 OB - PN: A/P Delivery Assessment and Plan (1) Severe preeclampsia: Status: Acute Plan Darius is a 33yo seen on POD2 from repeat performed for preeclampsia with severe features (unrelenting headache despite multiple medications). was otherwise complicated by chronic hypertension, history of IUFD, proteinuria, history of , history of MRSA, history of mood disorder, factor 5 Leiden heterozygous, episodes of dizziness. Her delivery and post-operative course have been uncomplicated to present. - status post 24 hours of magnesium sulfate ending at 2130 yesterday - cereal HELLP labs were completed while she was on magnesium, last set was 08/05 at 6:00 p.m. were entirely within normal limits. Repeat only as clinically indicated. - Diligent blood pressure monitoring ongoing. She has been normotensive and asymptomatic, on no medications. - Prophylactic lovenox ongoing in the setting of F5L heterozygous status, plan to continue for 6 weeks PP - Routine cares and support ongoing - Plan dismissal to home tomorrow on POD3
[2024-08-06] MEDS: ENOXAPARIN 40 MG/0.4 ML INJ SUBCUT (10:32)
[2024-08-06] MEDS: IBUPROFEN 600 MG TABLET PO ×2 (10:32→17:51)
[2024-08-06] MEDS: DOCUSATE SODIUM 100 MG CAPSULE PO (10:33)
[2024-08-06 14:06] LABS: Rapid Plasma Reagin (RPR) Non Reactive (Non Reactive)
[2024-08-06 16:00] VITALS: BP 117/77; PULSE 82; RESP 16; TEMP 36.6; O2SAT 97
[2024-08-06 20:26] VITALS: BP 108/77; PULSE 87; RESP 12
[2024-08-06] MEDS: OXYCODONE 5 MG TABLET PO (21:34)
[2024-08-07 00:22] VITALS: BP 114/76; PULSE 84; RESP 14; TEMP 36.6; O2SAT 96
[2024-08-07] MEDS: IBUPROFEN 600 MG TABLET PO ×3 (00:24→13:09)
[2024-08-07] MEDS: ACETAMINOPHEN 500 MG TABLET 1000 MG PO ×2 (02:55→09:00)
[2024-08-07 04:11] VITALS: BP 118/79; PULSE 77
[2024-08-07] MEDS: DOCUSATE SODIUM 100 MG CAPSULE PO (09:00)
[2024-08-07 09:03] VITALS: BP 114/78; PULSE 81; RESP 17; TEMP 36.6
--- NOTE | 2024-08-07 09:05 | P.DS_ITS ---
DS: Providers Provider Date Seen: 08/07/24 Date of admission: 08/04/24 17:00 Primary care physician: Jyoti Cope DO Admitting Clinician: Esme Ramirez MD Attending Physician on discharge: Esme Ramirez MD Date of Discharge: 08/07/24 DS: Diagnosis Discharge Diagnosis (1) Status post repeat low transverse section: Status: Acute (2) Severe preeclampsia: Status: Acute Exam Narrative: Exam Narrative: VITAL SIGNS: As noted above. GENERAL APPEARANCE: Alert, cooperative female in no acute distress. MOOD & AFFECT: Normal. HEART: Regular rate and rhythm without murmurs. LUNGS: Lungs are clear to auscultation bilaterally. No crackles, wheezes, or rhonchi. ABDOMEN: Soft, non-distended and nontender. Incision healing well, no surrounding erythema, induration or abnormal discharge. : Normal lochia. EXTREMITIES: Nonedematous. Well perfused. Nontender. NEURO: Intact. Const: Vital Signs, click to edit/add: Vital Signs - 24 hr 08/06/24 16:00 08/06/24 20:26 08/07/24 00:22 Temperature 97.8 F 97.9 F Pulse Rate [Pulse Oximeter] 82 87 84 Respiratory Rate 16 12 14 Blood Pressure [Le ft Arm] 117/77 108/77 114/76 Pulse Oximetry 97 96 Oxygen Delivery Me thod Room Air Room Air 08/07/24 04:11 08/07/24 09:03 Temperature 97.8 F Pulse Rate [Pulse Oximeter] 77 81 Respiratory Rate 17 Blood Pressure [Le ft Arm] 118/79 114/78 Pulse Oximetry Oxygen Delivery Me thod Room Air OB - DS: Summary Hospital Course Hospital Course: The patient is a 33 year old G 3 P 2102 at 361/7 weeks gestation that was admitted to the Center on 08/04/24 for repeat delivery due to chronic hypertension with superimposed severe features. She had an uncomplicated delivery. She delivered a viable male infant. She is breast feeding. the patient has done well. Blood pressures have remained normal. 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 Peripartum Data delivery method: Repeat Section Procedures: Procedures Operation Date: 08/04/24 21:00 Actual Procedure Side Surgeon p Repeat Section Emse Ramirez MD Operation Date: 08/10/24 07:30 <No data on this case meets the specified criteria> complications: none Infant Gender: Male Discharge Plan: Home Status at Discharge Functional status at discharge: independent ambulation Overall status at discharge: patient is progressing back to baseline Time Spent with Patient Time attestation: Total time spent providing and/or coordinating discharge services: Time spent: Less than 30 minutes Discharge Plan Discharge Disposition: Home, Self-Care Date of Admission: 08/04/24 17:00 Attending Provider on Discharge: Esme Ramirez Primary Care Provider: Jyoti Cope Condition: Stable Anticipated Discharge Date/Time: 08/07/24 09:08 Discharge Medications: New acetaminophen 500 mg Tablet 1,000 mg PO Q6H PRN (Reason: pain/fever) Qty: 30 0RF docusate sodium 100 mg Capsule 100 mg PO DAILY Qty: 30 0RF ibuprofen 600 mg Tablet 600 mg PO Q6H PRN (Reason: Pain) Qty: 30 0RF oxycodone 5 mg Tablet 5 - 10 mg PO Q4H PRN (Reason: Pain) Qty: 20 0RF enoxaparin 40 mg/0.4 mL Syringe 40 mg subcut Q24H Qty: 40 0RF Continued ascorbic acid (vitamin C) 1,000 mg tablet 1 g PO DAILY magnesium gluconate 27 mg magnesium (500 mg) tablet 27 mg PO QDAY DHA 200 mg capsule 200 mg PO DAILY Discharge Orders: Discharge Order (Routine); Ordered 08/07/24 Ordered By: Esme Ramirez Patient Education: OB /Breast Feeding Additional Instructions: Measure blood pressures at home twice a day. Notify clinic if there are blood pressures persistently more than 140 systolics, 90s diastolics or if any symptoms such as headaches that do not go away with pain medication, visual changes such as dark spots in vision, pain in the upper abdomen-that moves towards the upper right side. Follow-up in clinic in 3-5 days after discharge for blood pressure check. Follow-up in clinic in 2 weeks for incision check and follow-up. Follow-up in 6 weeks in clinic for regular visit. Activity Level: Activity as Tolerated and No Weight Bearing Activity Detail: No lifting more than 15-20 pounds, nothing vaginally for 6 weeks Discharge Diet: Regular Follow Up Appointments: Jyoti Cope DO [Primary Care Provider] - Forms: [employer] Info Instructions
[2024-08-07] MEDS: ENOXAPARIN 40 MG/0.4 ML INJ SUBCUT (13:41)
== END 2024-08-07 13:50 | disposition home or self-care (01) | DRG 540 ==
LOC: OB OUT 20:00 → OB 20:00
PROVIDERS: Admitting Provider Obstetrics & Gynecology; PCP Family Medicine; Visit Provider Obstetrics & Gynecology
PROC: 10D00Z1 Extraction of Products of Conception, Low, Open Approach (ICD-10-PCS; CPT 59514; principal; 2024-08-04 20:45)
DX: O14.14 Severe pre-eclampsia complicating childbirth (principal); O10.92 Unspecified pre-existing hypertension complicating childbirth; O34.211 Maternal care for low transverse scar from previous cesarean delivery; O32.1XX0 Maternal care for breech presentation, not applicable or unspecified; G89.18 Other acute postprocedural pain; O99.12 Other diseases of the blood and blood-forming organs and certain disorders involving the immune mechanism complicating childbirth; D68.51 Activated protein C resistance; Z3A.36 36 weeks gestation of pregnancy; Z37.0 Single live birth; Z86.14 Personal history of Methicillin resistant Staphylococcus aureus infection
CPT/HCPCS: 01961; 36415; 64488; 76942; 82565; 82570; 84156; 84450; 84460; 84520; 85027; 86592; 86850; 86900; 86901; 88307; A4314; A9270; J0665; J0666; J0690; J1650; J1885; J2405; J2590; J3475; J7120

== ENCOUNTER 2024-12-24 12:05 | Outpatient (CLI) | payer BC, SELFPAY ==
--- NOTE | 2024-12-24 12:15 | CRLHL7_ITS ---
For Patients: As a result of the Century Cures Act, medical imaging exams and procedure reports are released immediately into your electronic medical record. You may view this report before your referring provider. If you have questions, please contact your health care provider. CLINICAL HISTORY: Pelvic and perineal pain COMPARISON: 05/24/2024 TECHNIQUE: 2D marinelli-scale ultrasound. In addition, color Doppler and spectral Doppler analysis was performed of the pelvis using a transabdominal and transvaginal approach. Transvaginal imaging performed to better visualize the endometrial stripe and ovaries. FINDINGS: Uterus measures 8.5 x 4.0 x 6.0 cm. Normal uterine echotexture. No uterine fibroid. The endometrial lining appears normal and measures 5 mm in thickness. The right ovary measures 3.4 x 2.1 x 2.1 cm in size and the left ovary measures 3.4 x 1.9 x 2.3 cm. The ovaries demonstrate normal arterial and venous blood flow on color Doppler and spectral Doppler analysis. There are no suspicious fluid collections within the cul-de-sac. IMPRESSION: Normal pelvic ultrasound. Dictated by Zya Drake MD @ 12/27/2024 7:06:51 AM (Electronically Signed)
== END 2024-12-24 12:06 | disposition home or self-care (01) ==
LOC: US 12:05
PROVIDERS: PCP Family Medicine; Visit Provider Obstetrics & Gynecology
DX: R10.2 Pelvic and perineal pain (principal)
CPT/HCPCS: 76830; 76856; 93976